=== PATIENT | female | born 1965 | race Caucasian/White ===

== ENCOUNTER 2023-07-30 15:54 | Emergency (ER) | payer MEDICAID, SELFPAY ==
[2023-07-30 15:57] VITALS: BP 129/86; PULSE 87; RESP 18; TEMP 36.2; O2SAT 100; BMI 27.1
--- NOTE | 2023-07-30 16:40 | EX.ED.SAOD ---
HPI History of Present Illness Chief Complaint: Substance Abuse Informant: patient Narrative Narrative: Patient presents hoping for Suboxone prescription. She has a history of crack cocaine use. She has been using Suboxone the last 3 years. She had been on a program in [place] but has not found anyone in this local area to help her. She states she ran out of Suboxone about a week ago. [facility] Medical History Cocaine substance abuse Allergy/AdvReac Type Severity Reaction Status Date / Time vancomycin Allergy Other Verified 07/30/23 15:57 Social History Smoking Status: Former smoker ROS ROS ED Constitutional Constitutional ED: Denies chills or fever(s) Eyes Eyes: Denies change in vision or discharge from eye(s) ENT ENT ED: Denies discharge from eye(s), rhinorrhea or sore throat Cardiovascular Cardiovascular: Denies chest pain or palpitations Respiratory/Chest Respiratory/Chest: Denies cough or dyspnea Gastrointestinal Gastrointestinal: Denies abdominal pain or vomiting Musculoskeletal Musculoskeletal: Denies back pain or extremity pain Integumentary Denies Abrasions or rash Neurologic Neurologic: Denies headache(s) or weakness Psychiatric Psychiatric: Reports anxiety; Denies depression Allergic/Immunologic Allergic/Immunologic ED: Denies lip swelling or urticaria EXAM Physical Exam Const Vital Signs: 07/30/23 15:57 Temperature 97.1 F L Temperature Source Temporal Pulse Rate 87 Respiratory Rate 18 Blood Pressure 129/86 H Blood Pressure Mean 100 Pulse Ox 100 Oxygen Delivery Method Room Air Positive well nourished and well developed General Appearance ED: well developed HEENT Reports moist mucous membranes Eyes EOMs intact bilaterally Chest Wall inspection of chest normal and palpation of chest normal Resp normal respiratory effort and clear to auscultation bilaterally Cardio regular rate and regular rhythm GI soft to palpation and non-tender Neuro oriented x3 and no sensory deficits noted Motor Exam: strength 5/5 throughout Psych mental status grossly normal MDM MDM MDM Narrative Medical decision making narrative: Advised patient that we do not have anyone on staff in the ER with the appropriate drug license to write for Suboxone. She has not followed up with [facility] and she was given information for them along with her 24-hour hotline phone number. She will call them for assistance. Return instructions given. Discharge Plan Triage Chief Complaint: Substance Abuse ED Provider: Dejah Olmos Dx/Rx/DC Orders Clinical Impression: Drug abuse Instructions: Substance Abuse Rehab Program, Recovering from Addiction, ED Drug Abuse Referrals: [facility] [Non-Staff] - As soon as possible Disposition Disposition: Home, Self Care
--- NOTE | 2023-07-30 16:45 | CM.ED ---
Social Work MD Olmos met with SW and reviewed presenting symptoms and current needs, patient requesting suboxone. SW inquired about housing resource needs as it was noted patient is homeless. explained the patient is staying in a friends RV and is only interested in suboxone. SW provided treatment navigator resource as they can direct patient and prefer to talk to patient directly. SW remains available if additional needs arise. Diamond Rogers TIN DIPPER, FRANKIE
== END 2023-07-30 16:54 | disposition home or self-care (01) ==
LOC: ED 16:50
PROVIDERS: Emergency Provider Emergency Medicine; Visit Provider Emergency Medicine
DX: F19.19 Other psychoactive substance abuse with unspecified psychoactive substance-induced disorder (principal); Z87.891 Personal history of nicotine dependence
CPT/HCPCS: 99282

== ENCOUNTER 2024-11-03 14:21 | Emergency (ER) | payer MEDICAID, SELFPAY ==
[2024-11-03 14:21] VITALS: BP 220/204; PULSE 86; RESP 20; TEMP 36.3; O2SAT 97; BMI 31.2
[2024-11-03 14:23] VITALS: BMI 31.2
--- NOTE | 2024-11-03 14:58 | MRI_ITS ---
STUDY: MRI LUMBAR SPINE WITHOUT CONTRAST REASON FOR EXAM: Female, 59 years old. back pain -- left leg weak, incontinent stools TECHNIQUE: Standardized fat and water weighted pulse sequences were obtained in the sagittal and axial planes. COMPARISON: None FINDINGS: T12-L1: Normal endplates. Normal disc height, hydration and morphology. Normal bilateral facet joints. Normal central canal and bilateral lateral recesses. Normal bilateral intervertebral neural foramina. Normal lumbar lordosis. There is no substantial scoliosis. Normal conus medullaris that terminates at T12-L1 L1-2: Normal endplates. Normal disc height, hydration and morphology. Normal bilateral facet joints. Normal central canal and bilateral lateral recesses. Normal bilateral intervertebral neural foramina. L2-3: Normal endplates. Normal disc height, hydration and minor annular bulge with small central disc extrusion with mild superior migration of disc fragment. Normal bilateral facet joints. Normal central canal and bilateral lateral recesses. Normal bilateral intervertebral neural foramina. L3-4: Normal endplates. Normal disc height, desiccation and minimal annular bulge with small left foraminal disc protrusion. Normal bilateral facet joints. Mild narrowing of central canal. Normal bilateral lateral recesses. Moderate left neural foraminal stenosis. L4-5: Normal endplates. Normal disc height, desiccation and minor annular bulge with small central left/left paracentral disc extrusion with mild inferior migration of disc fragment. Facet arthropathy and mild thickening of ligamenta flava. Mild narrowing of central canal. Normal bilateral lateral recesses. Small subarticular perineural cyst on the right of indeterminate clinical significance Moderate bilateral neural foraminal stenosis. L5-S1: Normal endplates. Normal disc height, desiccation and minimal annular bulge.. Facet arthropathy and thickening of ligamenta flava. Normal central canal and bilateral lateral recesses. Moderate bilateral neural foraminal stenosis. Normal visualized sacral ala. Normal visualized paraspinous soft tissue structures. MRI/Spine Lumbar (Routine) IMPRESSION: No evidence for acute fracture or other significant bony pathology. Multilevel disc degeneration and spondylosis. Spinal stenosis at L3-4 more pronounced on the left, L4-5 and L5-S1 degenerative disc disease and bony hypertrophy. Findings as above. Electronically Signed: Kenny Nascimento MD at 16:38 EST Reading Location ID and State: [address] [place] [address] Tel , Service support ,
--- NOTE | 2024-11-03 14:58 | CT_ITS ---
STUDY: CT BRAIN WITHOUT CONTRAST REASON FOR EXAM: Female, 59 years old. headache RADIATION DOSAGE (If Supplied By Facility): CTDIvol = ( 47.06 ) mGy, DLP = ( 837.39 ) mGycm TECHNIQUE: Transaxial CT imaging of the brain was performed without administration of intravenous contrast material. Individualized dose optimization techniques were used for this CT. COMPARISON: No relevant priors. FINDINGS: Normal soft tissue structures. Normal calvarium. Normal size ventricles and extra-axial spaces for the patient''s age. Normal white matter tracts of the cerebral hemispheres. Normal basal ganglia and thalami. Normal brainstem. Normal cerebellum. There is no intracranial hemorrhage. There are no findings of an acute ischemic infarction. Normal visualized paranasal sinuses. CT/Brain/Head without Contrast IMPRESSION: Normal unenhanced CT scan of the brain. Electronically Signed: Toñito Cain MD at 15:42 EST ,
--- NOTE | 2024-11-03 14:59 | EKG12_ITS ---
Test Reason : Blood Pressure : */* mmHG Vent. Rate : 79 BPM Atrial Rate : 79 BPM P-R Int : 140 ms QRS Dur : 76 ms QT Int : 394 ms P-R-T Axes : 43 29 31 degrees QTcB Int : 451 ms Normal sinus rhythm Normal ECG Confirmed by CASIE LESTER, MOR ([id number]), food editor ISATU WILSON ([id number]) on 11/04/2024 9:25:16 AM Referred By: Confirmed By: MOR JASON MD
--- NOTE | 2024-11-03 15:05 | EDS_ITS ---
HPI History of Present Illness Chief Complaint: Neuro S/Sx Informant: patient Narrative Narrative: Patient presents here for evaluation worsening back pain and leg weakness. She is history of sciatica on the left side. She reports history of stroke years ago leading to mild left leg weakness. She has been following more for the last 6 months. She has had a history of her sciatica pain manage in [place] she states she seen pain management years ago with injections. However noticing recurrent symptoms in the last 2 weeks. She had a fall this past Sunday with worsening leg weakness and now incontinence of stools. She denies any urine retention or any urine symptoms. She said pain radiates down left leg to her great toe. She does not walk with any assistance. She is currently staying at a nursing home for the last 3 months. History of ulcerative colitis not on any medications. Presented with blood pressure 220, she states recent headaches. Denies any chest or abdominal pain. Denies nausea or vomiting. She states she used to be on blood pressure medicines years ago however is able to get off them. She currently does not take any medications states only allergies to vancomycin. She reported intermittent blurry vision right eye for the last 2 weeks. 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 Prior similar symptoms: Yes and With Prior Back Pain [facility] Medical History Cocaine substance abuse Home Medications ?Medication ?Instructions ?Recorded ?Last Taken ?Type oxycodone-acetaminophen 5 mg-325 1 tab PO Q6H PRN PRN Pain 3 days 11/03/24 Unknown Rx mg tablet #12 TABLETS Allergy/AdvReac Type Severity Reaction Status Date / Time vancomycin Allergy Other Verified 07/30/23 15:57 Social History Smoking Status: Former smoker ROS ROS ED Constitutional Constitutional ED: Denies chills, fever(s) or sweats Eyes Eyes: Reports blurry vision ENT ENT ED: Denies sore throat Cardiovascular Cardiovascular: Denies chest pain, leg edema, palpitations or racing heartbeat Respiratory/Chest Respiratory/Chest: Denies cough, dyspnea or dyspnea on exertion Gastrointestinal Gastrointestinal: Reports other Details: Incontinence of stools ; Denies abdominal pain, diarrhea, nausea or vomiting Genitourinary Genitourinary ED: Denies dysuria, hematuria or urinary frequency Musculoskeletal Musculoskeletal: Reports back pain; Denies extremity pain or neck pain Integumentary Denies rash or wounds Neurologic Neurologic: Reports headache(s), paresthesias and weakness EXAM Physical Exam Const Vital Signs: 11/03/24 14:21 11/03/24 16:00 11/03/24 17:00 Temperature 97.4 F L Temperature Source Temporal Pulse Rate 86 69 72 Respiratory Rate 20 H 16 20 H Blood Pressure 220/204 H 147/80 H 136/81 H Blood Pressure Mean 209 102 99 Pulse Ox 97 98 99 Oxygen Delivery Method Room Air Room Air 11/03/24 17:41 Temperature 98.0 F Temperature Source Pulse Rate 65 Respiratory Rate 16 Blood Pressure 137/83 H Blood Pressure Mean 101 Pulse Ox 97 Oxygen Delivery Method Positive well nourished and well developed General Appearance ED: well developed and NAD HEENT Reports moist mucous membranes normocephalic and atraumatic Eyes General Eye ED: Yes normal appearance of both eyes and other Other Details: Right eye: Normal female counting all 4 quadrants. Left eye he sees shadows and light. Neck full ROM Neck Narrative: No meningismus. Chest Wall Chest: Negative for tenderness Resp normal respiratory effort and normal air movement Effort and Inspection: symmetric chest movement; Negative for respiratory distress Cardio regular rate, regular rhythm and no murmurs Peripheral Pulses: pulses 2+ throughout GI normal to inspection, nondistended, normoactive bowel sounds and non-tender Palpation: Negative for guarding or rebound tenderness present Back/Spine Back/Spine Narrative: Tender palpation lower lumbar and left paralumbar. Straight leg test was negative. Extremity normal to inspection General Extremety ED: Negative for edema or tenderness General Extremity: Negative for edema Neuro oriented x3 and no sensory deficits noted Neuro Narrative: Mild weakness left hip flexor 4 out of 5 compared to right hip flexor. Sensorium / Orientation: awake and alert Skin no rashes or lesions noted and no wounds MDM MDM MDM Narrative Medical decision making narrative: Interventions / MDM: Differential diagnosis: Lumbar radiculopathy, sciatica, accelerated hypertension Diagnosis considered but do not suspect: Cauda equina however MRI negative. Intracranial hemorrhage however CT brain negative. No findings of hypertensive emergency. My EKG interpretation: Sinus rate of 70, no ST changes, isolated T wave version leads III nonspecific. Imaging independently reviewed and interpreted by myself: CT brain: No acute process. MRI lumbar spine: Spinal stenosis L3-L4 more pronounced on the left. Degenerative changes L4-L5, L5-S1. External documents reviewed: N/A Test considered but not ordered:N/A ED course: Blood pressure elevated 220 no chest pains or shortness of breath intermittent headaches, With falls. Obtain head CT. Labs were rechecked. She reporting worsening back pain incontinence of stools and paresthesias, she does have 4 out of 5 hip flexor weakness. Will obtain emergent MRI secondary to this the lumbar spine. She will be treated with morphine for pain control. 1700: MRI study negative for cauda equina spinal stenosis probably L3-L4 more on the left. CT brain negative. Labs are all stable. Blood pressure down to 136/81 without any intervention. Pain was more controlled. EKG normal. Will ambulate patient with a walker for stability with her multiple falls. 1725: Patient able to ambulate with and without the walker. With her multiple falls will dispensed a walker to help with stability. She is given prescription for pain medicine to use as needed. She is referred to pain management with her radicular symptoms for further management options. Consider admission however patient able to ambulate pain is controlled blood pressure better no findings of hypertensive emergency. Re-evaluation: stable Disposition discussed with patient/family/significant other: Patient Case discussed with consulting clinician: N/A This note was generated with [employer] dictation software. It may contain incorrect words, spelling, and punctuation that were not noted in checking the note before signing. Lab Data Attestation: I reviewed the patient's lab results. Labs: Laboratory Results - last 24 hr 11/03/24 14:55 WBC 10.1 RBC 4.13 L Hgb 12.1 Hct 36.4 L MCV 88.1 MCH 29.3 MCHC 33.2 RDW Std Deviation 45.6 H RDW Coeff of Joselo 14.2 Plt Count 474 H MPV 9.4 Immature Gran % (Auto) 1.100 H Neut % (Auto) 67.4 Lymph % (Auto) 19.9 Dickinson % (Auto) 9.3 Eos % (Auto) 1.2 Baso % (Auto) 1.1 H Absolute Neuts (auto) 6.8 Absolute Lymphs (auto) 2.00 Nucleated RBC % 0 PT 12.4 INR 0.9 APTT 23.8 L Sodium 140 Potassium 3.6 Chloride 110 H Carbon Dioxide 24.0 Anion Gap 6 BUN 16 Creatinine 0.94 Estim Creat Clear Calc 55.89 Est GFR (MDRD) Af Amer 77 Est GFR (MDRD) Non-Af 64 BUN/Creatinine Ratio 16.9 Glucose 106 Calcium 9.3 Radiography Diagnostic Testing: Clinical Impression(s) from Imaging Studies Brain CT 11/03/24 14:58 IMPRESSION: Normal unenhanced CT scan of the brain. Electronically Signed: Toñito Cain MD at 15:42 EST , Lumbar Spine MRI 11/03/24 14:58 IMPRESSION: No evidence for acute fracture or other significant bony pathology. Multilevel disc degeneration and spondylosis. Spinal stenosis at L3-4 more pronounced on the left, L4-5 and L5-S1 degenerative disc disease and bony hypertrophy. Findings as above. Electronically Signed: Kenny Nascimento MD at 16:38 EST , Discharge Plan Triage Chief Complaint: Neuro S/Sx Other Complaint: Back ED Provider: Terry Tovar Dx/Rx/DC Orders Clinical Impression: Left lumbar radiculopathy, Back pain, Elevated blood pressure, situational, Headache, Fall Instructions: ED Sciatica Prescriptions: New oxycodone-acetaminophen 5-325 mg tablet 1 tab PO Q6H PRN PRN (Reason: Pain) 3 Days Qty: 12 0RF Primary Care Provider: Katie Nicholas Referrals: Marcial Ospina MD [Med Staff - Active Staff] - 5-7 Days Care Physician,No Primary [Non-Staff] - Katie Nicholas, BROKE HANDLER-C [Primary Care Provider] - 3-5 Days Activity Restrictions/Additional Instructions: MRI lumbar spine negative for cauda equina. L3-L4 spinal stenosis probably probably on the left side. CT brain negative. Blood pressure elevated arrival however without intervention down to 136/81. Labs are stable EKG normal. Take pain medicine as scribed. Use your walker for stability. Follow-up with Dr. Ospina, pain management further management. Print Language: Burmese Disposition Disposition: Home, Self Care Discharge Date/Time: 11/03/24 17:59
[2024-11-03] MEDS: Morphine 4 MG/ML Syringe IV (15:21)
[2024-11-03 15:34] LABS: Absolute Neutrophil Count 6.8 X10^3/uL (2.0-7.7); Basophil# 0.11 X10^3/uL; Basophil% 1.1 % (0-1); Eosinophil# 0.12 X10^3/uL; Eosinophils% 1.2 % (0-5); Hematocrit 36.4 % (37-47); Hemoglobin 12.1 g/dL (12.0-15.0); Lymphocyte % 19.9 % (19-41); Mean Corp Hgb Conc 33.2 g/dL (32-36); Mean Corpuscular Hgb 29.3 pg (27.0-32.0); Mean Corpuscular Volume 88.1 fL (81-99); Mean Platelet Vol. 9.4 fl (6.2-12.0); Monocyte# 0.93 X10^3/uL; Monocyte% 9.3 % (0-10); NRBC Flagged by Analyzer 0 % (0-5); Neutrophil # 6.78 X10^3/uL (2.7-7.7); Neutrophil % 67.4 % (47-70); Platelet Count 474 K/mm3 (150-450); RBC Distribution Width CV 14.2 % (11.6-14.6); RBC Distribution Width SD 45.6 fl (35.1-43.9); Red Blood Count 4.13 M/mm3 (4.2-5.4); White Blood Count 10.1 K/mm3 (4.4-11.0)
[2024-11-03 15:58] LABS: International Normalized Ratio 0.9; Prothrombin Time (Protime)PT. 12.4 SECONDS (11.7-14.9)
[2024-11-03 15:59] LABS: Partial Thromboplast Time 23.8 Seconds (24.1-36.2)
[2024-11-03 16:00] VITALS: BP 147/80; PULSE 69; RESP 16; O2SAT 98
[2024-11-03 16:39] LABS: Anion Gap 6 (5-15); BUN 16 mg/dL (7-18); BUN/Creat Ratio 16.9 RATIO (10-20); Calcium,Total 9.3 mg/dL (8.5-10.1); Chloride 110 mmol/L (98-107); Creatinine, Serum 0.94 mg/dL (0.55-1.02); EST Glomerular Filtration Rate 64 mL/min (>60); Est Glom Filt Rate - Afr Amer 77 mL/min (>60); Estimated Creatinine Clearance 55.89 ml/min; Glucose 106 mg/dL (74-106); Potassium 3.6 mmol/L (3.5-5.1); Sodium Level 140 mmol/L (136-145)
[2024-11-03 17:00] VITALS: BP 136/81; PULSE 72; RESP 20; O2SAT 99
[2024-11-03 17:41] VITALS: BP 137/83; PULSE 65; RESP 16; TEMP 36.7; O2SAT 97
== END 2024-11-03 17:59 | disposition home or self-care (01) ==
PROVIDERS: Emergency Provider Emergency Medicine; Visit Provider Emergency Medicine
DX: M47.26 Other spondylosis with radiculopathy, lumbar region (principal); R03.0 Elevated blood-pressure reading, without diagnosis of hypertension; R51.9 Headache, unspecified; Z87.891 Personal history of nicotine dependence; W19.XXXA Unspecified fall, initial encounter
CPT/HCPCS: 70450; 72148; 80048; 85025; 85610; 85730; 93005; 96374; 96376; 99285; A4216

== ENCOUNTER → 2024-11-05 | Outpatient (CLI) | payer MEDICAID, SELFPAY ==
[2024-11-05 17:17] LABS: Absolute Lymphocyte Count 1.48 X10^3/uL (0.83-4.51); Absolute Neutrophil Count 3.9 X10^3/uL (2.0-7.7); Basophil# 0.11 X10^3/uL; Basophil% 1.7 % (0-1); Eosinophil# 0.16 X10^3/uL; Eosinophils% 2.5 % (0-5); Hematocrit 33.7 % (37-47); Hemoglobin 10.9 g/dL (12.0-15.0); Lymphocyte # 1.48 X10^3/ul (0.83-4.51); Lymphocyte % 23.3 % (19-41); Mean Corp Hgb Conc 32.3 g/dL (32-36); Mean Corpuscular Hgb 28.9 pg (27.0-32.0); Mean Corpuscular Volume 89.4 fL (81-99); Mean Platelet Vol. 9.1 fl (6.2-12.0); Monocyte# 0.67 X10^3/uL; Monocyte% 10.6 % (0-10); NRBC Flagged by Analyzer 0 % (0-5); Neutrophil # 3.88 X10^3/uL (2.7-7.7); Neutrophil % 61.1 % (47-70); Platelet Count 413 K/mm3 (150-450); RBC Distribution Width CV 14.1 % (11.6-14.6); Red Blood Count 3.77 M/mm3 (4.2-5.4); White Blood Count 6.4 K/mm3 (4.4-11.0)
[2024-11-05 17:29] LABS: Erythrocyte Sedimentation Rate 3 mm/hr (0-30)
[2024-11-05 17:43] LABS: ALB/GLOB Ratio 1.3 RATIO (0.9-2.4); AST(SGOT) 24 U/L (15-37); Alanine Aminotransfer ALT/SGPT 29 U/L (13-56); Albumin, Serum 3.7 g/dL (3.2-5.0); Alkaline Phosphatase 65 U/L (45-117); Anion Gap 5 (5-15); BUN 15 mg/dL (7-18); BUN/Creat Ratio 16.6 RATIO (10-20); Calcium,Total 9.4 mg/dL (8.5-10.1); Chloride 109 mmol/L (98-107); Cholesterol 190 mg/dL (200); EST Glomerular Filtration Rate 67 mL/min (>60); Est Glom Filt Rate - Afr Amer 82 mL/min (>60); Globulin 2.8 g/dL (2.2-4.2); Glucose 110 mg/dL (74-106); High Density Lipoprotein 74 mg/dL; Potassium 4.2 mmol/L (3.5-5.1); Protein, Total 6.5 g/dL (6.4-8.2); Rheumatoid Factor < 10.0 IU/mL (<15); Sodium Level 138 mmol/L (136-145); Thyroid Stim Hormone (TSH) 0.337 uIU/mL (0.358-3.740); Triglycerides 63 mg/dL; Very Low Density Lipoprotein 13 mg/dL (5-40)
[2024-11-05 19:10] LABS: Hemoglobin A1c 5.7 % (3.8-5.6)
[2024-11-07 04:07] LABS: CRP, High Sensitivity 7.12 mg/L (0.00-3.00)
[2024-11-07 11:07] LABS: CCP IgG Antibodies 0 units (0-19)
== END | disposition home or self-care (01) ==
LOC: VSLAB 15:12
DX: M25.50 Pain in unspecified joint (principal); R19.7 Diarrhea, unspecified; R10.9 Unspecified abdominal pain; Z13.1 Encounter for screening for diabetes mellitus; Z13.220 Encounter for screening for lipoid disorders
CPT/HCPCS: 36415; 80053; 80061; 83036; 84443; 85025; 85652; 86141; 86200; 86431

== ENCOUNTER 2024-11-13 14:58 | Emergency (ER) | payer MEDICAID, SELFPAY ==
[2024-11-13 14:59] VITALS: BP 151/60; PULSE 81; RESP 16; TEMP 35.8; O2SAT 98
[2024-11-13] MEDS: morphine 10 MG/ML Syringe 8 MG IM (15:30)
[2024-11-13] MEDS: Ondansetron ODT 4 MG Tablet PO (15:30)
--- NOTE | 2024-11-13 15:34 | EDS_ITS ---
HPI <JASSON Baldwin - Last Filed: 11/13/24 15:38> History of Present Illness Chief Complaint: Back Narrative Narrative: Patient is a 59-year-old female with history of degenerative disc disease, arthritis, chronic back pain presents [facility]. Patient got a new job at the [employer], she states she was picking up a heavy load soda. Patient she felt something in her back, and now she is having severe pain. She denies any bowel or bladder incontinence, denies any weakness to her lower extremities. Patient did ambulate here. [facility] <JASSON Baldwin - Last Filed: 11/13/24 15:38> [facility] Medical History Cocaine substance abuse Home Medications ?Medication ?Instructions ?Recorded ?Last Taken ?Type oxycodone-acetaminophen 5 mg-325 1 tab PO Q6H PRN PRN Pain 3 days 11/03/24 Unknown Rx mg tablet #12 TABLETS Allergy/AdvReac Type Severity Reaction Status Date / Time vancomycin Allergy Other Verified 07/30/23 15:57 Social History Smoking Status: Current every day smoker tobacco type: cigarettes ROS <JASSON Baldwin - Last Filed: 11/13/24 15:38> ROS ED ROS Narrative Constitutional: Negative for fever, chills, weight loss, weakness Eyes: Negative for vision loss, vision change, double vision ENT: Negative for any sore throat, ear pain, congestion Cardiovascular: Negative for any chest pain, tightness, palpitations Respiratory: Negative for any cough, sputum production, hemoptysis, dyspnea, dyspnea on exertion, orthopnea Gastrointestinal: Negative for any abdominal pain, nausea, vomiting, diarrhea, constipation, blood in stool, blood in vomit : Negative for any urinary frequency, dysuria, retention, blood in urine Muscle skeletal: Negative for any neck pain. Positive for lower back pain Neurological: Negative for any headache, syncope, dizziness Skin: Negative for any rashes, itching, abrasions, lacerations Psychiatric: Negative for any depression, anxiety, stress, suicidal ideation, homicidal ideation Hematologic: Negative for any excessive bruising, easy bleeding EXAM <JASSON Baldwin - Last Filed: 11/13/24 15:38> Physical Exam Narrative Exam Narrative: Vital signs reviewed. HEET: Head normocephalic atraumatic, TMs clear bilaterally. Posterior pharynx is clear, moist mucous membranes. Nares clear bilaterally. Neck: Supple with no lymphadenopathy or tenderness. No signs of meningismus. Cardiac: Regular rate and rhythm no murmurs gallops or rubs, equal peripheral pulses bilaterally. Respiratory: Lungs clear to auscultation bilaterally. No chest tenderness. Abdomen: Soft, nontender, nondistended. No abdominal bruit or pulsatile masses. No hepatosplenomegaly Extremities: No peripheral edema, no signs of gross trauma or deformity. Active full range of motion of all extremities. Neuro: Cranial nerves II through XII intact, no focal neurological deficits. Skin: Clean dry and intact with no rash, purpura, petechiae, vesicles or pustules. Backs/flank: No CVA tenderness, no midline spinal tenderness, no deformity. Equal strength bilateral lower extremities. Pain is mostly across the entire lower lumbar spine. No deformity. Psych: Normal mood and affect. No SI, HI or acute psychosis. Const Vital Signs: 11/13/24 14:59 Temperature 96.4 F L Temperature Source Temporal Pulse Rate 81 Respiratory Rate 16 Blood Pressure 151/60 H Blood Pressure Mean 90 Pulse Ox 98 Oxygen Delivery Method Room Air <Dr. Kelvin Nichols MD - Last Filed: 11/13/24 16:39> Physical Exam Const Vital Signs: 11/13/24 14:59 Temperature 96.4 F L Temperature Source Temporal Pulse Rate 81 Respiratory Rate 16 Blood Pressure 151/60 H Blood Pressure Mean 90 Pulse Ox 98 Oxygen Delivery Method Room Air MDM <JASSON Baldwin - Last Filed: 11/13/24 15:38> [facility] Treatment and Re-Evaluation Narrative: Differential diagnosis includes however is not limited to: Lumbar fracture, acute on chronic pain, degenerative disc disease, muscle strain, compression fracture Patient appears generally well, vital signs are stable, patient is nontoxic- appearing. Presenting to the [facility] part for complaints of lower back pain after lifting up a case of pop. Patient will receive 80 mg of IM morphine, as well as oral Zofran. Patient will need to be reevaluated. <Dr. Kelvin Nichols MD - Last Filed: 11/13/24 16:39> [facility] MDM Narrative Medical decision making narrative: I have personally performed a face to face assessment of the patient and have reviewed the SHAUNNA Note. I performed a substantive portion of the visit including all aspects of the following. My gauthier findings include: History is 59-year-old female history of degenerative disc disease in her lower back. Recent MRI. Recently started a new job at an [employer]. Complaining of back pain. No bowel or bladder incontinence. No prior back surgery. No fever. No weakness in her legs. No radiation to her legs. Exam is [well-appearing 59-year-old female. Vital signs stable afebrile. H EENT exam unremarkable. Pupils round react light. Neck nontender. Lungs clear. Heart regular rhythm no murmur rate about 80. Chest wall ribs nontender. Abdomen soft nontender. Moving all 4 extremities. Neurovascularly intact. 5 out of 5 university manager strength. Dorsi plantarflexion intact equal symmetrical. No cauda equina. No saddle anesthesia. Can lift either leg off the bed. No radiculopathy. No straight leg raise. Back reproducible tenderness along the lumbar spine and paralumbar soft tissue.] Medical Decision Making [ patient treated treated with IM morphine. Pain much improved at 4:30 PM. She will be discharged home.] Other additions or changes: [None] Discharge Plan Triage Chief Complaint: Back ED Midlevel Provider: Yosi Gordillo ED Provider: Kelvin Nichols Dx/Rx/DC Orders Clinical Impression: Acute lumbar myofascial strain Instructions: ED Back Sprain/Strain Prescriptions: No Action oxycodone-acetaminophen 5-325 mg tablet 1 tab PO Q6H PRN PRN (Reason: Pain) 3 Days Qty: 12 0RF Stand Alone Forms: ED Work / School Excuse Primary Care Provider: Katie Nicholas Referrals: Katie Nicholas, TRANSMISSION SUPERVISOR-C [Primary Care Provider] - Activity Restrictions/Additional Instructions: Please ensure that you perform gentle stretching, ice and heat. You need to use anti-inflammatories, Tylenol, follow-up outpatient. Print Language: Luxembourgish
[2024-11-13 16:44] VITALS: BP 146/88; PULSE 86; RESP 16; TEMP 36.4; O2SAT 99
== END 2024-11-13 16:49 | disposition home or self-care (01) ==
LOC: ED 15:26
PROVIDERS: Emergency Provider Emergency Medicine; Referring Provider Emergency Medicine; Visit Provider Emergency Medicine
DX: S39.012A Strain of muscle, fascia and tendon of lower back, initial encounter (principal); F17.210 Nicotine dependence, cigarettes, uncomplicated; X58.XXXA Exposure to other specified factors, initial encounter
CPT/HCPCS: 96372; 99282

== ENCOUNTER 2024-12-02 09:30 | Outpatient (RCR) | payer MEDICAID, SELFPAY ==
--- NOTE | 2024-11-28 10:10 | HP.PTEVAL_ITS ---
Patient's Visit Information Visit Information Visit Information: ZOFIA CASTRO is a 59 year old F referred to Physical Therapy by Dr. Marcial Ospina MD with a diagnosis of LUMBAR RADICULOPATHY ,CERVICALOGENIC LEYVA ,CERVICAL SPONDYLOSIS. Date of Evaluation: 11/28/24 Physical Therapist: Ifeanyi Avalos, PT, Cert MDT, OCS Visit Plan Frequency: 2x /Week Duration: 4 Weeks Plan: PT INTERVENTIONS AQUATIC THERAPY DLS ,POSTURAL EX'S ,CERVICAL ROM ,LUMBAR ROM ,STRENGTHENING BUE/LE AND ACTIVITY MODIFICATION Subjective Subjective: This 59 y/o female presents to physical therapy with cervical and lumbar pain. Patient has had lumbar and neck pain many years. Patient seen pain management recommended PT changed medication muscle relaxer and try Cymbalta. No epidural injection but has h/o epidural injections. Patient had MRI showed stenosis and HNP.Patient had to go to ER due to pain. Patient pain located cervical right shoulder. > left . Aggravating factors standing and lifting. Alleviating heat ,movement. C/O occiput LEYVA then has migraines. Denies nausea/tinnitus. Location symmetrical left > right. with radicular symptoms in legs. Aggravating factors standing ,sitting,bending ,lifting occasional walking.Alleviating factors medication rest ,heat .Bowel/bladder -. C/O tingling/paresthesia in legs. Patient symptoms affects sleeping. Patient symp toms affects housework task sweeping. Patient condition affects QOL and function/houseworks. Patient goals to decrease pain. Patient VOCATION: [employer] SOCIAL: Pain Bilateral Neck: Pain Intensity (Out of 10): 3 Pain Intensity Range: 10 Bilateral Back: Pain Intensity (Out of 10): 8 Pain Intensity Range: 10 Objective Objective: POSTURE:mild forward posture NEURO: c/o paresthesia/tingling,reflexes L3-4,L4-5 ,L5-S1 1/3 ,C5-6-7 1/3 PALPATION: tender LS ,UT/levator/paraspinals AROM: BUE WFL CERVICAL ROM: flexion min loss ,extension min loss ,rotation min loss ,lateral flexion min/mod loss MMT: BUE grossly 4/5 ,shoulders 4-/5 LUMBAR ROM: flexion mod loss pain ,extension min loss ,side glides min loss MMT: quads/hams4/5 ,hip flexion 4-/5 ,ankle 4/5 FLXABILITY: hamstrings min tight Special Tests C/S Radiculapathy - Left Upper limb tension test: Negative C/S Radiculapathy - Right Upper limb tension test: Negative C/S Radiculapathy - Left Spurlings: Positive C/S Radiculapathy - Right Spurlings: Positive C/S Radiculapathy - Left Cervical distraction: Negative C/S Radiculapathy - Right Cervical distraction: Negative C/S Radiculapathy - Left Relief test: Negative C/S Radiculapathy - Right Relief test: Negative C/S Radiculapathy - Valsalva: Negative Sharp Jose J: Negative Vertebral Artery Test: Negative Alar Ligament Test: Negative L/S Slump test left side: Negative L/S Slump test right side: Negative L/S Left Straight Leg Raise: Negative L/S Right Straight Leg Raise: Negative Balance/Special Test Scores Oswestry Low Back Score: 31 Goals Goal 1:: Patient to be I with Aquatic therapy Goal Time Frame: 4-6 Weeks Goal 2:: Patient to improve cervical and lumbar ROM for function of recovery to drive and ADL Goal Time Frame: 4-6 Weeks Goal 3:: Patient to demonstrate 40% improvement with less pain and improved function Goal Time Frame: 4-6 Weeks Goal 4:: Patient to improve back oswestry score by 5 points to improve QOL and function Goal Time Frame: 4-6 Weeks Goal 5:: Patient be able to perform ADL;s and housework tasks with min limitations Goal Time Frame: 4-6 Weeks Rehabilitation Potential Physical Therapy Diagnosis: This patient has lumbar pain with MRI showed HNP and stenosis and cervical pain with radiculopathy with pain positioning and motion testing worse with walking/standing with back thus benefit from skilled PT Rehabilitation Potential: Good Anticipated Interventions Patient/Client Instruction: Educate patient on: Condition and Plan of Care For the Purpose of:: To decrease pain, To increase ROM, To improve muscle performance and motor function, To improve ability to perform ADL's, To increase tolerance to activity/condition/position, To improve ability of physical actions for home/community/work/leisure, To improve health of tissue, To decrease soft tissue restriction, To increase flexibility/ROM, To assume or resume ADL's and To prevent re-injury Therapeutic Exercise to Include: Strength training, Body mechanics, Postural training, Flexibilty training, In an aquatic setting, Active ROM and Dynamic Lumbar Stabilization Comment: BUE/BLE For the Purpose of:: To decrease pain, To increase ROM, To improve muscle performance and motor function, To improve ability to perform ADL's, To improve ability of physical actions for home/community/work/leisure, To improve gait and locomotor functions, To improve health of tissue, To decrease soft tissue restriction, To increase flexibility/ROM, To reduce risk of recurrence and To improve tolerance to ADL's Text: Thank you for the opportunity to evaluate your patient. For Medicare and Medicare HMO plans, please review the plan of care and approve it. It will need to be FAXED BACK to us at [phone] for Medicare purposes. For Medicare only, by signing this I certify the plan of care. Please let me know if there are questions or concerns regarding this plan of care. Physician Signature: Date:
--- NOTE | 2025-02-26 11:15 | HP.PT.NRP ---
Patient Information Patient Information: ZOFIA CASTRO was seen in my office for initial evaluation on 11/28/24. The following Plan of Care was established for this patient: POC Established Initial Frequency: 2x /Week Initial Duration: 4 Weeks Anticipated Interventions Patient/Client Instruction: Educate patient on: Condition and Plan of Care For the Purpose of:: To decrease pain, To increase ROM, To improve muscle performance and motor function, To improve ability to perform ADL's, To increase tolerance to activity/condition/position, To improve ability of physical actions for home/community/work/leisure, To improve health of tissue, To decrease soft tissue restriction, To increase flexibility/ROM, To assume or resume ADL's and To prevent re-injury Therapeutic Exercise to Include: Strength training, Body mechanics, Postural training, Flexibilty training, In an aquatic setting, Active ROM and Dynamic Lumbar Stabilization For the Purpose of:: To decrease pain, To increase ROM, To improve muscle performance and motor function, To improve ability to perform ADL's, To improve ability of physical actions for home/community/work/leisure, To improve gait and locomotor functions, To improve health of tissue, To decrease soft tissue restriction, To increase flexibility/ROM, To reduce risk of recurrence and To improve tolerance to ADL's Last Seen Last Seen: This patient was last seen in our office . Pertinent comments regarding their Physical therapy will appear below: Patient was seen for lumbar radiculopathy in Aquatics therapy for DLS and le flexibility. At this point I will be discontinuing this patient from physical therapy. I would be happy to see this patient again in the future if found appropriate by the physician. Thank you! Ifeanyi Avalos, PT, Cert MDT, OCS Balance/Gait/Functional tests Balance/Special Test Scores Oswestry Low Back Score: 31
== END 2024-12-02 19:00 | disposition home or self-care (01) ==
LOC: PT 09:30
PROVIDERS: Referring Provider Anesthesiology; Visit Provider Anesthesiology
DX: M54.16 Radiculopathy, lumbar region (principal); M43.02 Spondylolysis, cervical region; G44.86 Cervicogenic headache
CPT/HCPCS: 97113; 97162

== ENCOUNTER → 2024-12-22 | Outpatient (CLI) | payer MEDICAID, SELFPAY ==
--- NOTE | 2024-12-22 11:08 | RAD_ITS ---
EXAM: XR Cervical Spine, 4 or 5 Views CLINICAL INDICATION: TECHNIQUE: Frontal, lateral and bilateral oblique views of the cervical spine. COMPARISON: No relevant prior studies available. FINDINGS: VERTEBRAE: Mild reversal cervical spine lordosis. Severe endplate degenerative changes and disc disease of C6-7. No acute fracture. DISC SPACES: No acute findings. No significant narrowing. SOFT TISSUES: Unremarkable. RAD/Cerv Spine 4 or 5 Views IMPRESSION: Severe endplate degenerative changes and disc disease of C6-7. Reading Location: [facility]
== END | disposition home or self-care (01) ==
LOC: RAD 11:06
PROVIDERS: Referring Provider Anesthesiology; Visit Provider Anesthesiology
DX: M47.812 Spondylosis without myelopathy or radiculopathy, cervical region (principal)
CPT/HCPCS: 72050

== ENCOUNTER 2025-06-05 03:47 | Emergency (ER) | payer MEDICAID, SELFPAY ==
[2025-06-05 03:47] VITALS: BP 161/84; PULSE 99; RESP 16; TEMP 36.8; O2SAT 95; BMI 29.9
--- NOTE | 2025-06-05 04:04 | CT_ITS ---
PROCEDURE: SPINE CERVICAL WITHOUT CONTRAS 06/05/2025 REASON FOR EXAM: INJURY TECHNIQUE: SPINE CERVICAL WITHOUT CONTRAS Coronal and Sagittal reconstruction series were provided. One or more dose reduction techniques were used (e.g., Automated exposure control, adjustment of the mA and/or kV according to patient size, use of iterative reconstruction technique. RADIATION DOSE SUMMARY: CTDlvol: 17 mGy DLP: 330 mGycm COMPARISON: X-ray 12/22/2024 FINDINGS: Cervical spine scoliosis and degeneration. No acute fracture or dislocation. No soft tissue injury. No apical pneumothorax. At C5-C6, there is kyphotic angulation, without interspinous widening. This was present previously and may indicate a remote hyperflexion sprain. CT/Spine Cervical without Contras IMPRESSION: No acute cervical spine injury. Suspect a remote C5-6 hyperflexion sprain. Correlate with history. Reading Location: [place] [id number]
--- NOTE | 2025-06-05 04:04 | CT_ITS ---
PROCEDURE: BRAIN/HEAD WITHOUT CONTRAST 06/05/2025 REASON FOR EXAM: INJURY TECHNIQUE: BRAIN/HEAD WITHOUT CONTRAST Coronal and Sagittal reconstruction series were provided. One or more dose reduction techniques were used (e.g., Automated exposure control, adjustment of the mA and/or kV according to patient size, use of iterative reconstruction technique. RADIATION DOSE SUMMARY: CTDlvol: 45 mGy DLP: 762 mGycm COMPARISON: 11/03/2024 FINDINGS: No abnormal brain densities. No intracranial hemorrhage. No hydrocephalus or midline shift. Small left posterior scalp hematoma. No skull fracture. Unremarkable orbits. Clear sinuses. CT/Brain/Head without Contrast IMPRESSION: No acute intracranial findings Reading Location: [place] [id number]
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
--- NOTE | 2025-06-05 04:04 | CT_ITS ---
PROCEDURE: SINUS/FACIAL BONE 06/05/2025 REASON FOR EXAM: INJURY TECHNIQUE: SINUS/FACIAL BONE Coronal and Sagittal reconstruction series were provided. One or more dose reduction techniques were used (e.g., Automated exposure control, adjustment of the mA and/or kV according to patient size, use of iterative reconstruction technique). RADIATION DOSE SUMMARY: CTDlvol: 30 mGy DLP: 562 mGycm COMPARISON: No FINDINGS: No facial fracture or dislocation. There is right anterolateral facial bruising, at the level of the mandible, series 608, image 75. No soft tissue injury otherwise noted. Orbital soft tissues are unremarkable. CT/Sinus/Facial Bone IMPRESSION: Mild facial soft tissue injury. Reading Location: [place] [address]
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
[2025-06-05] MEDS: 0.9% Normal Saline (1000mL) 1,000 ML 999 ML IV (04:25)
[2025-06-05 04:30] LABS: Hematocrit 40.8 % (37-47); Hemoglobin 13.8 g/dL (12.0-15.0); Immature Granulocytes Count 0.050 X10^3/uL (0.0-0.0); Mean Corp Hgb Conc 33.8 g/dL (32-36); Mean Corpuscular Volume 85.5 fL (81-99); Mean Platelet Vol. 8.9 fl (6.2-12.0); NRBC Flagged by Analyzer 0.3 % (0-5); Platelet Count 457 K/mm3 (150-450); RBC Distribution Width CV 15.6 % (11.6-14.6); RBC Distribution Width SD 48.4 fl (35.1-43.9); Red Blood Count 4.77 M/mm3 (4.2-5.4); White Blood Count 7.9 K/mm3 (4.4-11.0)
--- OUTSIDE RECORDS SUMMARY | 2025-06-05 04:49 | XMS RPT_ITS | CCD ---
Demographics Address [address] [place] [address] Mobile Phone Home Phone Preferred Language en Marital Status Catholic Affiliation Unknown Race White Ethnic Group Not or Lati no Author Organization [facility] Care Team Providers Care Court Assistant Name Role Phone NYDIA BLAND Unavailable Unavailable DAVID LESLIE Unavailable Unavailable No, Physician Unavailable Unavailable Nydia Bland Unavailable Unavailable Unavailable Unavailable Gina Mosleey Unavailable Chacortaramez, Trisha N Primary Care Provider [facility], [facility] Primary Care Provider [facility], Trisha Primary Care Provider [facility], [facility] Primary Care Provider Mendoza DO, Peter Primary Care Provider [phone] Brennan Martin MD Unavailable Mendoza DO, Peter Primary Care Provider LYNN, THADDEUS GONSALO Admitting Unavailable LYNN, THADDEUS GONSALO Referring Unavailable MENDOZA, PETER Primary Care Unavailable LYNN, THADDEUS GONSALO Referring Unavailable MENDOZA, PETER Primary Care Unavailable LYNN, THADDEUS GONSALO Admitting Unavailable MENDOZA, PETER Primary Care Unavailable [facility], TRISHA N Primary Care Unavailable XI LEZAMA Consulting Unavailable NOEMY ROJAS Attending Unavailable JOSH KATE Admitting Unavailab marjan MOSLEYKKANTI, BRENNAN Attending Unavailable MENDOZA, PETER Primary Care Unavailable NEKKANTI, BRENNAN Referring Unavailable SABINE ALCARAZ Attending Unavailable MENDOZA, PETER Primary Care Unavailable NEKKANTI, BRENNAN Referring Unavailable MENDOZA, PETER Primary Care Unavailable MENDOZA, PETER Referring Unavailable NEKKANTI, BRENNAN Attending Unavailable NEKKANTI, BRENNAN Admitting Unavailable MENDOZA, PETER Primary Care Unavailable NEKKANTI, BRENNAN Admitting Unavailable NEKKANTI, BRENNAN Attending Unavailable SELF, SELF Referring Unavailable MENDOZA, PETER Primary Care Unavailable NEKKANTI, BRENNAN Attending Unavailable MENDOZA, PETER Primary Care Unavailable NEKKANTI, BRENNAN Referring Unavailable NEKKANTI, BRENNAN Admitting Unavailable NEKKANTI, BRENNAN Attending Unavailable NEKKANTI, BRENNAN Attending Unavailable SELF, SELF Referring Unavailable MENDOZA, PETER Primary Care Unavailable MENDOZA, PETER Primary Care Unavailable ADELAIDA DOMINGUEZ A Attending Unavailable NEKKANTI, BRENNAN Referring Unavailable DOMINGUEZADELAIDA A Attending Unavailable MENDOZA, PETER Primary Care Unavailable NEKKANTI, BRENNAN Referring Unavailable STMAREK LI Attending Unavailable SELF, SELF Referring Unavailable MENDOZA, PETER Primary Care Unavailable Veronica LESTER, Brennan Unavailable Veronica LESTER, Brennan Unavailable [phone] Mateusz Linares DO Primary Care Provider Veronica LESTER, Brennan Unavailable [phone] Mateusz Linares DO Primary Care Provider Vikas Bermudez DO Unavailable Kaitlynn Duval DO Primary Care Provider Unava ilable Nydia Bland DO Primary Care Provider [phone] No, Physician Primary Care Provider Unavailabl e Saccyoon DO Isholivieril Primary Care Provider [phone] [facility] Trisha MCELROY Primary Care Provider Peter Mendoza DO, Lp Primary Care Provider Vikas Bermudez DO Unavailable ERIC LINARESIA Primary Care Unavailable ANTONIO RAGLAND Attending Unavailab ANTONIO Brooks Referring Unavailab PETER Velazquez LP Primary Care Unavailable VIKAS BERMUDEZ Attending Unava ilable VIKAS BERMUDEZ Referring Unava ilable MATEUSZ LINARES Primary Care Unavailable KOTA LANDA Admitting Unavailab KOTA Lee Attending Unavailab le POTHEN, MATEUSZ Primary Care Unavailable KOTA LANDA Admitting Unavailab marjan LINARES, MATEUSZ Primary Care Unavailable ROSALES PIERCE Attending Unavailable Unavailable Primary Care Provider Unavailabl e Sheets DO, Jennifer C Primary Care Provider SHEETS, JENNIFER Primary Care Unavailable Migue FIVE PIECE EXPANSION MAKER HAND WHARF ATTENDANT, Modesta Unavailable Unavailabl Ariela Rosario DO Unavailable [phone] Sheets DO, Jennifer C Primary Care Provider SHEETS, JENNIFER C Primary Care Unavailable LON GRAHAM Attending Unavailabl e Marjan MCELROY, Dr. Stewart Attending Provider Marjan MCELROY, Dr. Stewart Emergency Provider [facility] ICU SPECIALIST-[facility], [place] Primary Care Provider [facility] ICU SPECIALIST-[facility], [place] Attending Provider Simone LETSER, Dr. Warren Attending Provider [phone] Dr. Kelvin Nichols MD Referring Provider Dr. Kelvin Nichols MD Emergency Provider Dr. Marcial Ospnia MD Attending Provider [phone] Dr. Marcial Ospina MD Referring Provider [facility] ICU SPECIALIST-C, [place] Primary Care Provider Beam, [place] Primary Care Unavailable Beam, [place] Attending Unavailable Marcial Ospina Attending Unavailable Marcial Ospina Referring Unavailable Beam, [place] Primary Care Unavailable Beam, [place] Primary Care Unavailable Terry Phillip Attending Unavailable Kelvin Nichols Attending Unavailable Kelvin Nichols Referring Unavailable Beam, [place] Primary Care Unavailable Beam, [place] Attending Unavailable Beam, [place] Primary Care Unavailable Beam, [place] Primary Care Unavailable Marcial Ospina Attending Unavailable Marcial Ospina Referring Unavailable SHEETS, JENNIFER C Primary Care Unavailable SHEETS, JENNIFER C Primary Care Unavailable SHEETS, JENNIFER C Referring Unavailable SHEETS, JENNIFER C Attending Unavailable SHEETS, JENNIFER C Primary Care Unavailable SELF Referring Unavailable SHEETS, JENNIFER C Attending Unavailable SHEETS, JENNIFER C Primary Care Unavailable SHEETS, JENNIFER C Referring Unavailable KOTA LANDA Attending [facility] MATEUSZ Delatorre Primary Care Unavailable Allergies Allergy Classification Reported Allergen(s) Allergy Type Date of Onset Reaction(s) Facility Glycopeptides (antibiotic) (20 sources) Vancomycin Drug Allergy 8 Rash, Anaphylaxis, Other: See Comments [facility] (20 sources) vancomycin; Translations: [VANCOMYCIN] Drug Allergy 8 Rash, Anaphylaxis, Other: See Comments [facility] Comment on above: skin burning (1 source) Vancomycin Drug Allergy 3 [facility] Repository Medications Current Medications Medication Drug Class(es) Dates Sig (Normalized) Sig (Original) acetaminophen 325 mg / HYDROcodone bitartrate 5 mg oral tablet (11 sources) Opioid Agonist Start: 03-22-2023 End: 03-29-2023 take 1 tablet by mouth every eight hours as needed for pain HYDROcodone-aceta minophen (NORCO) 5-325 mg per tablet Indications: S/P right rotator cuff repair Take 1 (one) tablet by mouth every 8 (eight) hours as needed for pain Wean down/off as soon as possible. . 20 tablet 0 03/22/2023 03/29/2023 Active Start: 07-25-2020 End: 07-25-2020 HYDROcodone-acetaminophen (N ORCO) 5-325 mg per tablet 1 tablet Start: 05-26-2018 End: 01-02-2019 take 1 tablet by mouth every six hours as needed HYDROcodone-acetaminophen (NORCO) 5-325 mg per tablet Indications: Cellulitis, unspecified cellulitis site Take 1 (one) tablet by mouth every 6 (six) hours as needed. 10 tablet 0 05/26/2018 01/02/2019 Discontinued Start: 05-24-2018 End: 05-26-2018 take 1 tablet by mouth every six hours as needed Start: 05-24-2018 End: 05-24-2018 HYDROcodone-acetaminophen (N ORCO) 5-325 mg per tablet 1 tablet acetaminophen 325 mg / oxyCODONE hydrochloride 5 mg oral tablet (2 sources) Opioid Agonist Start: 11-03-2024 take 1 tablet by mouth every six hours as needed for pain Oxycodone-Acetaminophen 5-325 mg tablet Active 1 {tbl} PO EVERY 6 HOURS NEEDED as needed for Pain 12 3 November 03, 2024 [id number] 200 actuat albuterol 0.09 mg/actuat metered dose inhaler (20 sources) beta2-Adrene rgic Agonist Start: 09-26-2023 End: 04-07-2025 take 2 puff(s) by inhalation every six hours as needed for wheezing albuterol HFA (PROVENTIL HFA, VENTOLIN HFA) 90 mcg/actuation inhaler Indications: ARAM (generalized anxiety disorder) Inhale 2 puffs as instructed every 6 hours as needed for wheezing/shortness of breath. 1 each 11 04/08/2025 Active Start: 09-01-2021 End: 11-20-2022 take 2 puff(s) by inhalation every four to six hours as needed for wheezing albuterol 90 mcg/actuation inhaler Indications: Dyspnea on exertion Inhale 2 (two) puffs every 4 to 6 hours as needed for wheezing or shortness of breath . 18 g 0 11/20/2022 Active Comment on above: Inhale 2 Puffs as in structed every 6 hours as needed for wheezing/shortness of breath. bacitracin 0.4 unt/mg / neomycin 0.0035 mg/mg / polymyxin b 10 unt/mg ophthalmic ointment (14 sources) Aminoglycoside Antibacterial, Polymyxin-class Antibacterial Start: 3 zlpiguid-vyzeyczpmd-iqd ymyxin (NEOSPORIN) 3.5-400-10,000 jd-vnrp-jidu/g ophthalmic ointment Indications: Acute conjunctivitis of left eye, unspecified acute conjunctivitis type Administer into the left eye 3 (three) times a day . 3.5 g 0 11/06/2022 Active betamethasone 0.5 mg/ml / clotrimazole 10 mg/ml topical cream (1 source) Azole Antifungal, Corticosteroid Start: 8 End: 8 clotrimazole-betamethas one (LOTRISONE) cream Indications: Rash and nonspecific skin eruption Apply to affected area 2 times daily. 45 g 0 03/28/2018 04/04/2018 Active Blood Pressure Monitor (20 sources) Start: 4 Blood Pressure Monitor Indications: Hypertension, essential 1 Each as directed. 1 Kit 03/27/2024 Active Start: 03-27-2024 Blood Pressure Monitor Indications: Hypertension, essential 1 Each as directed. 1 Kit 0 03/27/2024 Active budesonide 3 mg delayed release oral capsule (20 sources) Corticosteroid Start: 05-11-2021 End: 05-08-2023 take 1 capsule by mouth every twenty-four hours in the morning budesonide (ENTOCORT EC) 3 mg 24 hr capsule Take 3 (three) capsules (9 mg total) by mouth every morning . 90 capsule 0 05/08/2023 Active Start: 05-11-2021 End: 08-30-2021 take 1 capsule by mouth once daily, then take 3 mg by mouth every twenty-four hours budesonide (ENTOCORT EC) 3 mg 24 hr capsule Take 9 mg by mouth daily . 0 05/11/2021 08/30/2021 Discontinued End: 03-27-2024 take 1 capsule by mouth once daily, then take 1 capsule by mouth every twenty-four hours budesonide, enteric coated (ENTOCORT EC) 3 mg 24 hr capsule Take 3 mg by mouth once daily. 0 03/27/2024 Discontinued Comment on above: Take 3 mg by mouth o nce daily. busPIRone hydrochloride 5 mg oral tablet (20 sources) Start: 09-26-2023 End: 04-07-2025 take 1 tablet by mouth once daily busPIRone (BUSPAR) 5 mg tablet Indications: ARAM (generalized anxiety disorder) Take 1 tablet by mouth once daily. 90 tablet 3 04/08/2025 Active Start: 11-08-2006 End: 09-26-2023 BUSPAR 10 MG TAB 1/2 TABLETS DAILY 0 11/08/2006 09/26/2023 Discontinued Comment on above: 1/2 TABLETS DAILY Take 1 tablet by lilo once daily. cephalexin 500 mg oral capsule (2 sources) Cephalosporin Antibacterial Start: 018 End: 018 take 1 capsule by mouth four times daily cephALEXin (KEFLEX) 500 MG capsule Take 1 (one) capsule (500 mg total) by mouth 4 (four) times a day for 7 days. 28 capsule 0 05/26/2018 06/02/2018 Active cetirizine hydrochloride 10 mg oral tablet (3 sources) Histamine-1 Receptor Antagonist Start: 024 End: 024 take 1 tablet by mouth once daily cetirizine (ZYRTEC) 10 mg tablet Take 1 tablet by mouth once daily for 14 days. 14 tablet 0 04/02/2024 04/16/2024 Active DAILY MULTIPLE TAB (20 sources) Start: 006 DAILY MULTIPLE TAB Take one(1) tablet daily. 0 01/05/2006 Active Comment on above: Take one(1) tablet d aily. docusate sodium 100 mg oral capsule (20 sources) Start: 023 End: 023 take 1 capsule by mouth twice daily as needed for constipation docusate sodium (Colace) 100 MG capsule Take 1 (one) capsule (100 mg total) by mouth 2 (two) times a day as needed for constipation . 60 capsule 0 03/07/2023 04/06/2023 Active Start: 07-15-2021 End: 11-20-2022 take 1 capsule by mouth every twenty-four hours as needed docusate sodium (COLACE) 100 MG capsule Take 1 (one) capsule (100 mg total) by mouth once as needed . 0 07/15/2021 11/20/2022 Discontinued (Patient's Request) famotidine 20 mg oral tablet (20 sources) Histamine-2 Receptor Antagonist Start: 04-22-2024 End: 04-07-2025 take 1 tablet by mouth once daily famotidine (PEPCID) 20 mg tablet Indications: Indigestion Take 1 tablet by mouth once daily. 30 tablet 2 04/08/2025 Active Start: 04-02-2024 End: 04-16-2024 take 1 tablet by mouth twice daily famotidine (PEPCID) 20 mg tablet Take 1 tablet by mouth two times a day for 14 days. 28 tablet 0 04/02/2024 04/16/2024 Active folic acid 1 mg oral tablet (20 sources) Start: 11-08-2006 End: 04-17-2022 FOLIC ACID 1 MG TAB Take one(1) tablet daily. 0 11/08/2006 Active Comment on above: Take one(1) tablet d aily. gabapentin 600 mg oral tablet (20 sources) Anti-epileptic Agent Start: 02-11-2025 End: 06-10-2025 take 1 tablet by mouth three times daily gabapentin (NEURONTIN) 600 mg tablet Take 1 tablet by mouth three times a day for 30 days. 90 tablet 05/11/2025 06/10/2025 Active Start: 06-03-2024 End: 01-15-2025 take 1 tablet by mouth three times daily gabapentin (NEURONTIN) 600 mg tablet Indications: Left sided sciatica Take 1 tablet by mouth three times a day for 30 days. 90 tablet 12/16/2024 Active Start: 11-27-2023 End: 05-29-2024 take 1 tablet by mouth three times daily gabapentin (NEURONTIN) 600 mg tablet Indications: Left sided sciatica Take 1 tablet by mouth three times a day for 30 days. 90 tablet 0 03/31/2024 04/29/2024 Discontinued Start: 09-26-2023 End: 10-26-2023 take 1 tablet by mouth three times daily gabapentin (NEURONTIN) 600 mg tablet Indications: Left sided sciatica Take 1 tablet by mouth three times a day for 30 days. 90 tablet 0 09/26/2023 10/26/2023 Active Start: 02-21-2023 End: 06-19-2023 take 2 capsules by mouth three times daily gabapentin (NEURONTIN) 300 MG capsule Indications: Cervicalgia Take 2 (two) capsules (600 mg total) by mouth 3 (three) times a day . 180 capsule 1 04/20/2023 05/08/2023 Discontinued (Reorder (Suppress CancelRx Message to Pharmacy)) Start: 06-22-2022 End: 02-19-2023 take 2 capsules by mouth three times daily gabapentin (NEURONTIN) 300 MG capsule Indications: Cervicalgia Take 2 (two) capsules (600 mg total) by mouth 3 (three) times a day . 180 capsule 1 11/20/2022 02/19/2023 Discontinued (Reorder (Suppress CancelRx Message to Pharmacy)) Start: 09-16-2021 End: 06-16-2022 take 2 capsules by mouth three times daily gabapentin (NEURONTIN) 300 MG capsule Indications: Cervicalgia Take 2 (two) capsules (600 mg total) by mouth 3 (three) times a day . 180 capsule 1 04/17/2022 06/16/2022 Active Start: 05-02-2021 End: 09-14-2021 take 2 capsules by mouth three times daily gabapentin (NEURONTIN) 300 MG capsule Indications: Cervicalgia Take 2 (two) capsules (600 mg total) by mouth 3 (three) times a day . 180 capsule 2 06/07/2021 09/14/2021 Discontinued (Reorder) Start: 10-05-2020 End: 05-02-2021 gabapentin (NEURONTIN) 300 M G capsule Indications: Chronic midline low back pain without sciatica Take 1 tablet in AM, 1 tablet in afternoon, and 2 tablets in evening . 90 capsule 0 04/18/2021 05/02/2021 Discontinued Start: 07-03-2020 End: 07-26-2020 take 1 tablet by mouth three times daily gabapentin (NEURONTIN) 800 MG tablet TK 1 T PO TID 0 07/03/2020 07/26/2020 Discontinued Start: 06-27-2018 End: 07-26-2020 gabapentin (NEURONTIN) 300 M G capsule Indications: Chronic midline low back pain without sciatica Take 1 tablet in AM, 1 tablet in PM, and 2 tablets in evening . 120 capsule 2 07/26/2020 Active Start: 02-23-2015 End: 02-04-2016 gabapentin (NEURONTIN) 800 M G tablet Indications: Chronic back pain , Right knee pain Take 1.5 tablets TID. 135 tablet 1 02/23/2015 02/04/2016 Discontinued (Reorder (Suppress CancelRx Message to Pharmacy)) Comment on above: Take 1 tablet by lilo th three times a day for 30 days. Take 600 mg by mouth three times a day. hydrOXYzine hydrochloride 25 mg oral tablet (20 sources) Antihistamine Start: 12-03-19 End: 04-07-20 take 1 tablet by mouth three times daily as needed hydrOXYzine HCl (ATARAX) 25 mg tablet Indications: Itching Take 1 tablet by mouth three times a day as needed. 90 tablet 3 04/08/2025 Active Start: 05-08-2023 End: 05-07-2024 take 1 capsule by mouth three times daily as needed for anxiety hydrOXYzine (VISTARIL) 25 MG capsule Indications: Anxiety Take 1 (one) capsule (25 mg total) by mouth 3 (three) times a day as needed for anxiety . 90 capsule 0 05/08/2023 05/07/2024 Active Comment on above: Take 1 tablet by lilo th three times a day as needed. ibuprofen 600 mg oral tablet (20 sources) Nonsteroidal Anti-inflammatory Drug Start: 11-13-2024 take 1 tablet by mouth every six hours as needed for pain Ibuprofen 600 mg tablet Active 600 mg PO EVERY 6 HOURS NEEDED as needed for pain November 13, 2024 1:00am Start: 03-07-2023 End: 06-05-2023 take 1 tablet by mouth every six hours as needed for pain ibuprofen (ADVIL,MOTRIN) 600 MG tablet Take 1 (one) tablet (600 mg total) by mouth every 6 (six) hours as needed for pain . 60 tablet 1 03/07/2023 06/05/2023 Start: 07-15-2021 End: 08-12-2021 take 1 tablet by mouth once daily as needed ibuprofen (ADVIL,MOTRIN) 800 MG tablet Take 1 tablet by mouth daily as needed . 0 07/15/2021 08/12/2021 Discontinued Start: 05-04-2021 End: 06-07-2021 take 1 tablet by mouth every six hours as needed ibuprofen (ADVIL,MOTRIN) 600 MG tablet Take 600 mg by mouth every 6 (six) hours as needed . 0 05/04/2021 06/07/2021 Discontinued Start: 02-11-2015 End: 05-26-2018 take 1 tablet by mouth every eight hours as needed for pain ibuprofen (ADVIL,MOTRIN) 600 MG tablet TAKE ONE TABLET BY MOUTH EVERY 8 HOURS NEEDED FOR PAIN 90 tablet 1 02/11/2015 05/26/2018 Discontinued (Stop Taking at Discharge) take 3 tablets by [facility] every twelve hours ibuprofen (ADVIL,MOTRIN) 200 MG tablet Indications: R rotator cuff shoulder tear Take 3 (three) tablets (600 mg total) by mouth every 12 (twelve) hours Reasons: R rotator cuff shoulder tear. 0 Active End: 03-05-2021 take 4 tablets by mouth twice daily ibuprofen (ADVIL,MOTRIN) 200 MG tablet Take 800 mg by mouth 2 (two) times a day . 0 03/05/2021 Discontinued ammonium lactate 120 mg/ml topical lotion (20 sources) Start: 09-26-2023 End: 04-07-2025 ammonium lactate (LAC-HYDRIN ) 12 % lotion Indications: Dermatitis Apply to affected area once daily as needed. 225 g 11 04/08/2025 Active Start: 09-11-2022 End: 09-11-2023 ammonium lactate (AMLACTIN) 12 % cream Indications: Dry skin Apply topically 2 (two) times a day . 385 g 0 09/11/2022 09/11/2023 Active Comment on above: Apply to affected ar ea once daily as needed. Apply to affected ar ea as needed. lidocaine 0.04 mg/mg medicated patch (20 sources) Antiarrhythmic, Amide Local Anesthetic Start: 1 End: 1 apply 1 dose transdermal route once daily, then apply 1 dose transdermal route every twelve hours lidocaine (LIDODERM) 5 % patch Place 1 (one) patch on the skin daily Remove & Discard patch within 12 hours or as directed by MD for 3 doses . 3 patch 0 03/22/2021 03/25/2021 Active Start: 07-25-2020 End: 04-07-2025 lidocaine (SALONPAS) 4 % pat ch Indications: Left sided sciatica Apply 1 application as directed once daily. 90 patch 3 04/08/2025 Active Comment on above: Apply 1 application as directed once daily. meloxicam 15 mg oral tablet (20 sources) Nonsteroidal Anti-inflammatory Drug Start: 8 End: 5 take 1 tablet by mouth once daily meloxicam (MOBIC) 15 mg tablet Indications: Osteoarthrosis, unspecified whether generalized or localized, other specified sites Take 1 tablet by mouth once daily. 90 tablet 3 04/08/2025 Active Start: 05-24-2018 End: 05-26-2018 Start: 12-04-2014 End: 12-04-2015 take 1 tablet by mouth once daily meloxicam (MOBIC) 7.5 MG tablet Indications: Back pain, chronic Take 1 tablet (7.5 mg total) by mouth daily. 30 tablet 1 12/04/2014 12/04/2015 Comment on above: Take 1 tablet by lilo once daily. Take 15 mg by mouth once daily. multivitamin (DAILY MULTIPLE) per tablet (20 sources) Start: 01-05-2006 take 1 tablet by mouth once daily multivitamin (DAILY MULTIPLE) per tablet Take 1 tablet by mouth daily . 0 01/05/2006 Active Start: 01-05-2006 multivitamin ( DAILY MULTIPLE) per tablet Take by mouth . 0 01/05/2006 Active multivitamin (THERAGRAN) per tablet (20 sources) Start: 01-05-2006 take 1 tablet by mouth once daily multivitamin (THERAGRAN) per tablet Take 1 (one) tablet by mouth daily . 0 01/05/2006 Active Start: 01-05-2006 take 1 tablet by lilo th once daily multivitamin (THERAGRAN) per tablet Take 1 tablet by mouth daily . 0 01/05/2006 Active naloxone hydrochloride 40 mg/ml nasal spray (20 sources) Opioid Antagonist Start: 10-17-2022 naloxone (NA RCAN) 4 mg/actuation [place] Indications: Cervicalgia Administer 1 spray into one nostril for known or suspected opioid overdose. If patient worsens or does not respond, may repeat in 2-3 minutes. . 2 each 5 10/17/2022 Active ondansetron 4 mg oral tablet (9 sources) Serotonin-3 Receptor Antagonist Start: 03-07-2023 take 1 tablet by mouth every six hours as needed for nausea ondansetron (Zofran) 4 MG tablet Take 1 (one) tablet (4 mg total) by mouth every 6 (six) hours as needed for nausea . 10 tablet 1 03/07/2023 Active Start: 12-12-2021 End: 04-17-2022 take 1 tablet by mouth every eight hours as needed for nausea and nausea and nausea ondansetron (ZOFRAN) 8 MG tablet Indications: Nausea Take 1 (one) tablet (8 mg total) by mouth every 8 (eight) hours as needed for nausea . 20 tablet 0 12/12/2021 04/17/2022 Discontinued Start: 03-01-2021 End: 03-05-2021 take 4 mg intravenously every six hours as needed 4 mg, Intravenous, Every 6 hours PRN, nausea, vomiting, Starting 03/01/21 at 2046 Start: 05-24-2018 End: 05-26-2018 take 1 tablet by mouth every six hours as needed 24 hr oxybutynin chloride 15 mg extended release oral tablet (20 sources) Cholinergic Muscarinic Antagonist Start: 01-22-2024 End: 04-07-2025 take 2 tablets by mouth once daily oxybutynin ER (DITROPAN XL) 15 mg 24 hr Extended Rel Tab Indications: OAB (overactive bladder) Take 2 tablets by mouth once daily. 180 tablet 3 04/08/2025 Active Start: 06-13-2021 End: 01-22-2024 take 1 tablet by mouth once daily oxybutynin ER (DITROPAN XL) 10 mg 24 hr tablet Indications: OAB (overactive bladder) Take 1 tablet by mouth once daily. 30 tablet 11 09/26/2023 01/22/2024 Discontinued Comment on above: Take 1 tablet by lilo th once daily. Take 10 mg by mouth once daily. [facility] PARoxetine hydrochloride 40 mg oral tablet (20 sources) Serotonin Reuptake Inhibitor Start: End: take 2 tablets by mouth once daily PARoxetine (PAXIL) 40 mg tablet Indications: ARAM (generalized anxiety disorder) Take 2 tablets by mouth once daily. 180 tablet 3 04/08/2025 Active Start: 05-08-2023 take 1 tablet by lilo th once daily PARoxetine (PAXIL) 10 MG tablet Indications: Anxiety Take 1 (one) tablet (10 mg total) by mouth daily Can increase in 10 mg increments weekly to max of 50 mg . 60 tablet 0 05/08/2023 Active Start: 07-26-2020 End: 04-17-2022 take 1 tablet by mouth once daily in the morning PARoxetine (PAXIL) 40 MG tablet Indications: Depression, unspecified depression type Take 1 (one) tablet (40 mg total) by mouth every morning . 90 tablet 0 12/12/2021 04/17/2022 Discontinued Start: 07-22-2020 take 1 tablet by lilo once daily in the morning PARoxetine (PAXIL) 30 MG tablet TK 1 T PO QAM 0 07/22/2020 Active Start: 01-05-2006 End: 09-26-2023 PAXIL 20 MG TAB Take one(1) tablet daily. 0 01/05/2006 09/26/2023 Discontinued (Other) Comment on above: Take one(1) tablet d aily. Take 80 mg by mouth once daily. Take 2 tablets by mo uth once daily. sulfamethoxazole 800 mg / trimethoprim 160 mg oral tablet (1 source) Dihydrofolate Reductase Inhibitor Antibacterial, Sulfonamide Antimicrobial Start: 03-20-20 End: 03-23-20 24 take 1 tablet by mouth twice daily sulfamethoxazole-t rimethoprim (BACTRIM DS) 800-160 mg per tablet Take 1 tablet by mouth two times a day for 3 days. 6 tablet 0 03/20/2024 03/23/2024 Active tiZANidine 4 mg oral tablet (20 sources) Central alpha-2 Adrenergic Agonist Start: 02-12-20 take 1 tablet by mouth three times daily as needed tiZANidine (ZANAFLEX) 4 mg tablet Indications: Lumbar pain Take 4 mg by mouth three times a day as needed. 02/11/2025 Active Start: 08-30-2021 End: 12-12-2021 take 1 tablet by mouth three times daily tiZANidine (ZANAFLEX) 2 MG tablet Take 1 (one) tablet (2 mg total) by mouth 3 (three) times a day . 90 tablet 0 08/30/2021 12/12/2021 Discontinued Start: 05-28-2020 End: 10-24-2020 take 1 tablet by mouth three times daily as needed for muscle spasms tiZANidine (ZANAFLEX) 4 MG tablet Indications: Chronic midline low back pain without sciatica Take 1 (one) tablet (4 mg total) by mouth 3 (three) times a day as needed for muscle spasms . 30 tablet 2 07/26/2020 10/24/2020 Active Start: 01-02-2019 End: 04-02-2019 take 1 tablet by mouth three times daily as needed for muscle spasms tiZANidine (ZANAFLEX) 4 MG tablet Indications: Chronic midline low back pain without sciatica Take 1 (one) tablet (4 mg total) by mouth 3 (three) times a day as needed for muscle spasms . 270 tablet 0 01/02/2019 04/02/2019 Active Start: 05-31-2018 End: 06-27-2020 take 1 capsule by mouth three times daily tiZANidine (ZANAFLEX) 4 MG capsule Indications: Chronic midline low back pain without sciatica Take 1 (one) capsule (4 mg total) by mouth 3 (three) times a day . 90 capsule 0 05/28/2020 06/27/2020 Active Start: 06-07-2017 End: 06-07-2021 tiZANidine (ZANAFLEX) 2 MG t ablet Start: 02-04-2016 End: 05-26-2018 tiZANidine (ZANAFLEX) 4 MG c apsule Indications: Chronic pain syndrome Take 1 tablet PO TID.. 90 capsule 1 02/04/2016 05/26/2018 Discontinued Start: 01-01-2015 End: 04-08-2015 take 1 tablet by mouth three times daily tiZANidine (ZANAFLEX) 4 MG capsule Indications: Back pain, chronic Take 1 tablet PO TID. 90 capsule 1 01/01/2015 04/08/2015 Discontinued (Reorder (Suppress CancelRx Message to Pharmacy)) valACYclovir 1000 mg oral tablet (20 sources) Herpesvirus Nucleoside Analog DNA Polymerase Inhibitor, Herpes Simplex Virus Nucleoside Analog DNA Polymerase Inhibitor, Herpes Zoster Virus Nucleoside Analog DNA Polymerase Inhibitor Start: 01-22-2024 End: 04-07-2025 take 1 tablet by mouth once daily valACYclovir (VALTREX) 1 gram tablet Indications: Herpes simplex vulvovaginitis Take 1 tablet by mouth once daily. 30 tablet 11 04/08/2025 Active End: 05-26-2018 valacyclovir HCl (VALTREX OR AL) Take by mouth. 05/26/2018 Discontinued valacyclovir HCl (VALTREX ORAL) Take by mouth. Active Comment on above: Take 1 tablet by lilo th once daily. Completed/Discontinued Medications Medication Drug Class(es) Dates Sig (Normalized) Sig (Original) 8 hr acetaminophen 650 mg extended release oral tablet (20 sources) Start: 05-12-2021 End: 06-07-2021 take 1 tablet by mouth every six hours as needed Mapap Arthritis Pain 650 mg CR tablet Take 650 mg by mouth every 6 (six) hours as needed for pain . 0 05/12/2021 06/07/2021 Discontinued Start: 03-01-2021 End: 03-05-2021 take 1 tablet by mouth every four hours as needed 650 mg, Oral, Every 4 hours PRN, mild pain, fever 100.4 F or greater, headaches, Starting Sun03/01/21 at 2046 Start: 05-24-2018 End: 05-26-2018 take 1 tablet by mouth every six hours as needed End: 11-20-2022 take 2 tablets by mouth every six hours as needed for pain acetaminophen (TYLENOL) 325 MG tablet Take 2 (two) tablets (650 mg total) by mouth every 6 (six) hours as needed for pain . 0 11/20/2022 Discontinued (Patient's Request) acetaminophen 650 mg / propoxyphene napsylate 100 mg oral tablet (1 source) Opioid Agonist Start: 01-05-2006 DARVOCET-N 100 100 MG-650 MG TAB 1-2 tablets every 4-6 hours as needed 0 01/05/2006 Active Comment on above: 1-2 tablets every 4- 6 hours as needed acyclovir 200 mg oral capsule (4 sources) Herpesvirus Nucleoside Analog DNA Polymerase Inhibitor, Herpes Simplex Virus Nucleoside Analog DNA Polymerase Inhibitor, Herpes Zoster Virus Nucleoside Analog DNA Polymerase Inhibitor Start: 05-24-2018 End: 05-26-2018 Start: 03-28-2018 End: 04-02-2018 take 1 tablet by mouth three times daily acyclovir (ZOVIRAX) 400 MG tablet Indications: HSV infection Take 1 (one) tablet (400 mg total) by mouth 3 (three) times a day for 5 days. 15 tablet 0 03/28/2018 04/02/2018 Active End: 05-31-2018 take 1 tablet by mouth five times daily acyclovir (ZOVIRAX) 400 MG tablet Indications: Herpes Labialis Take 400 mg by mouth 5 (five) times a day. 05/31/2018 Discontinued allopurinol 300 mg oral tablet (20 sources) Xanthine Oxidase Inhibitor Start: 10-23-2019 End: 03-01-2021 take 1 tablet by mouth once daily allopurinol (ZYLOPRIM) 300 MG tablet Indications: Gout, unspecified cause, unspecified chronicity, unspecified site Take 1 (one) tablet (300 mg total) by mouth daily Appointment needed for further refills. . 30 tablet 0 10/23/2019 03/01/2021 Discontinued (Therapy completed) Start: 04-08-2015 End: 04-02-2019 take 1 tablet by mouth once daily allopurinol (ZYLOPRIM) 300 MG tablet Indications: Gout, unspecified cause, unspecified chronicity, unspecified site Take 1 (one) tablet (300 mg total) by mouth daily . 90 tablet 0 01/02/2019 Active amoxicillin 875 mg / clavulanate 125 mg oral tablet (2 sources) Penicillin-class Antibacterial Start: 03-01-2021 End: 03-01-2021 amoxicillin-clavulanate (AUGMENTIN) 875-125 mg per tablet 1 tablet Start: 04-10-2019 End: 04-17-2019 take 1 tablet by mouth twice daily amoxicillin-clavulanate (AUGMENTIN) 875-125 mg per tablet Indications: Acute non-recurrent frontal sinusitis Take 1 (one) tablet by mouth 2 (two) times a day for 7 days . 14 tablet 0 04/10/2019 04/17/2019 Active buprenorphine 8 mg / naloxone 2 mg sublingual film (20 sources) Partial Opioid Agonist, Opioid Antagonist Start: 03-01-2021 End: 03-05-2021 8 mg of buprenorphine, Subli ngual, 2 times daily, First dose on Sun03/01/[address] one film under tongue until dissolves. If needed, a second film may be placed under tongue on the opposite side from the first film (minimize overlapping). Do not move film after placement. If a third film is needed, wait until the first 2 films have dissolved. Splitting a film in half may be clinically appropriate. Verify patient has received Patient Med Guide for Suboxone. Indication: Treatment of opioid dependence Is this a continuation of home therapy? Yes buprenorphine-na lOXone SL (SUBOXONE) 8-2 mg subl Dissolve 1 tablet under the tongue once daily. 2.5 films throughout the day 0 Active Comment on above: Dissolve 1 tablet un [place] the tongue once daily. 2.5 films throughout the day 24 hr buPROPion hydrochloride 150 mg extended release oral tablet (20 sources) Aminoketone Start: 1 End: 3 take 1 tablet by mouth once daily buPROPion (Wellbutrin XL) 150 MG 24 hr tablet Indications: Depression, unspecified depression type Take 1 (one) tablet (150 mg total) by mouth daily . 30 tablet 2 03/04/2023 05/08/2023 Discontinued (Reorder (Suppress CancelRx Message to Pharmacy)) End: 03-06-2025 bupropion HCl (WELLBUTRIN OR AL) Take by mouth two times a day. 03/06/2025 Discontinued (Other) bupropion HCl (W ELLBUTRIN ORAL) Take by mouth two times a day. Active bupropion HCl (W ELLBUTRIN ORAL) Take by mouth two times a day. 0 Active End: 09-26-2023 take 5 tablets by mouth once daily BUPROPION HCL ORAL Take by mouth. Takes up to 5 tablets daily depending on mood 0 09/26/2023 Discontinued Comment on above: Take by mouth two ti mes a day. Take by mouth. Takes up to 5 tablets daily depending on mood calcium carbonate 1500 mg / cholecalciferol 0.01 mg oral tablet (1 source) Vitamin D Start: 03-07-20 15 End: 03-06-20 16 take 2 tablets by mouth once daily calcium carbonate-vitamin D3 600 mg(1,500mg) -400 unit per tablet Take 2 tablets by mouth daily. 60 tablet 11 03/07/2015 03/06/2016 ceFAZolin (ANCEF) 1,000 mg in sodium chloride 0.9 % (NS) 50 mL IVPB (1 source) Start: 05-25-20 18 End: 05-26-20 18 take 1000 mg intravenous route every eight hours ceFAZolin (ANCEF) 1,000 mg in sodium chloride 0.9 % (NS) 50 mL IVPB cholecalciferol 1.25 mg oral capsule (20 sources) Vitamin D Start: 05-31-20 18 End: 03-01-20 21 take 1 capsule by mouth every week cholecalciferol, vitamin D3, 50,000 unit capsule Indications: Vitamin D deficiency Take 1 (one) capsule by mouth once a week. 4 capsule 1 05/31/2018 03/01/2021 Discontinued (Therapy completed) Start: 08-19-2012 End: 05-31-2018 cholecalciferol, vitamin D3, 50,000 unit capsule 50 ml clindamycin 12 mg/ml injection (1 source) Lincosamide Antibacterial Start: 05-24-2018 End: 05-24-2018 clindamycin (CLEOCIN) IVPB 600 mg (premix) cyclobenzaprine hydrochloride 10 mg oral tablet (20 sources) Muscle Relaxant Start: 11-20-2023 End: 03-06-2025 take 1 tablet by mouth three times daily as needed cyclobenzaprine (FLEXERIL) 10 mg tablet Indications: Left sided sciatica Take 1 tablet by mouth three times a day as needed. 90 tablet 3 08/14/2024 03/06/2025 Discontinued (Other) Start: 03-07-2023 End: 04-06-2023 take 1 tablet by mouth three times daily as needed for muscle spasms cyclobenzaprine (FLEXERIL) 5 MG tablet Take 1 (one) tablet (5 mg total) by mouth 3 (three) times a day as needed for muscle spasms . 30 tablet 0 03/07/2023 04/06/2023 Active Start: 06-07-2021 End: 08-30-2021 take 0.5 tablet by mouth three times daily cyclobenzaprine (FLEXERIL) 10 MG tablet Indications: Cervicalgia Take 0.5 (one-half) tablet (5 mg total) by mouth 3 (three) times a day . 90 tablet 2 06/07/2021 08/30/2021 Discontinued Start: 12-01-2015 End: 09-26-2023 take 1 tablet by mouth every eight hours as needed cyclobenzaprine (FLEXERIL) 10 mg tablet Take 1 tablet by mouth three times a day as needed. 30 tablet 0 11/20/2023 Active End: 05-26-2018 take 1 tablet by mouth three times daily as needed for muscle spasms cyclobenzaprine (FEXMID) 7.5 MG tablet Take 7.5 mg by mouth 3 (three) times a day as needed for muscle spasms. 05/26/2018 Discontinued Comment on above: Take 1 tablet by lilo th three times a day as needed. Take 10 mg by mouth three times a day as needed. diazePAM 5 mg oral tablet (10 sources) Benzodiazepine Start: 03-22-2021 End: 04-14-2021 diazePAM (VALIUM) 5 MG tablet Indications: Acute left-sided thoracic back pain Take 1 (one) tablet (5 mg total) by mouth 2 (two) times a day as needed for anxiety (Days supply per fill: 3) . 10 tablet 0 03/22/2021 04/14/2021 Discontinued End: 05-26-2018 take 1 tablet by mouth three times daily diazepam (VALIUM) 5 MG tablet Take 5 mg by mouth 3 (three) times a day. 0 05/26/2018 Discontinued (Stop Taking at Discharge) diphenhydrAMINE hydrochloride 25 mg oral tablet (20 sources) Histamine-1 Receptor Antagonist Start: 05-25-2018 End: 05-26-2018 diphenhydrAMINE (BENADRYL) oral solid 25 mg Start: 05-24-2018 End: 05-24-2018 diphenhydrAMINE (BENADRYL) i njection 25 mg take 1 tablet by lilo th three times daily as needed diphenhydramine HCl (BENADRYL ALLERGY ORAL) Take 1 tablet by mouth three times a day as needed. Active take 1 tablet by lilo th three times daily as needed diphenhydramine HCl (BENADRYL ALLERGY ORAL) Take 1 tablet by mouth three times a day as needed. 0 Active Comment on above: Take 1 tablet by lilo th three times a day as needed. diphenhydrAMINE hydrochloride 10 mg/ml / zinc acetate 1 mg/ml topical cream (4 sources) Histamine-1 Receptor Antagonist Start: End: diphenhydrAMINE-zin c acetate (BENADRYL ITCH STOPPING) cream Indications: Poison cheo Apply to affected area three times a day as needed for itching/rash for up to 7 days. 28 g 1 03/27/2024 04/03/2024 DULoxetine 60 mg delayed release oral capsule (11 sources) Serotonin and Norepinephrine Reuptake Inhibitor Start: End: take 1 capsule by mouth once daily DULoxetine (CYMBALTA) 60 MG capsule Indications: Chronic midline low back pain without sciatica Take 1 (one) capsule (60 mg total) by mouth daily . 30 capsule 0 05/28/2020 07/26/2020 Discontinued Start: 01-02-2019 End: 07-09-2019 take 1 capsule by mouth once daily DULoxetine (CYMBALTA) 60 MG capsule Indications: Chronic midline low back pain without sciatica Take 1 (one) capsule (60 mg total) by mouth daily . 90 capsule 0 04/10/2019 07/09/2019 Active Start: 12-23-2018 End: 01-02-2019 DULoxetine (CYMBALTA) 30 MG capsule Take one per day for 1st week, then take 2 per day. . 180 capsule 0 12/23/2018 01/02/2019 Discontinued Start: 11-11-2018 DULoxetine (CY MBALTA) 30 MG capsule Take one per day for 1st week, then take 2 per day. . 30 capsule 11 11/11/2018 Active eletriptan 40 mg oral tablet (2 sources) Serotonin-1b and Serotonin-1d Receptor Agonist Start: 01-05-2006 End: 09-26-2023 RELPAX 40 MG TAB as needed for migraine 0 01/05/2006 09/26/2023 Discontinued (Other) Comment on above: as needed for migrai ne 50 ml fentaNYL 0.05 mg/ml injection (2 sources) Opioid Agonist Start: 05-24-2018 End: 05-24-2018 fentaNYL (SUBLIMAZE) injection 50 mcg 1 ml heparin sodium, porcine 5000 unt/ml injection (1 source) Start: 05-24-2018 End: 05-26-2018 iopamidol (2 sources) Radiographic Contrast Agent Start: 04-22-2021 End: 04-22-2021 iopamidol (ISOVUE-370) 76 % oral solution 6 mL Start: 05-24-2018 End: 05-24-2018 iopamidol (ISOVUE-370) 76 % injection 75 mL iopamidoL (ISOVUE-370) 76 % injection 75 mL (1 source) Start: 04-22-2021 End: 04-22-2021 iopamidoL (ISOVUE-370) 76 % injection 75 mL metFORMIN hydrochloride 500 mg oral tablet (6 sources) Biguanide Start: 10-23-2019 End: 05-28-2020 take 1 tablet by mouth twice daily at mealtime metFORMIN (GLUCOPHAGE) 500 MG tablet Indications: Prediabetes Take 1 (one) tablet (500 mg total) by mouth 2 (two) times a day with meals Appointment needed for further refills. . 60 tablet 0 10/23/2019 05/28/2020 Discontinued Start: 01-02-2019 End: 04-02-2019 take 1 tablet by mouth twice daily at mealtime metFORMIN (GLUCOPHAGE) 500 MG tablet Indications: Prediabetes Take 1 (one) tablet (500 mg total) by mouth 2 (two) times a day with meals . 180 tablet 0 01/02/2019 Active Start: 12-23-2018 End: 01-02-2019 metFORMIN (GLUCOPHAGE) 500 M G tablet Take once a day for two weeks then twice a day . 180 tablet 0 12/23/2018 01/02/2019 Discontinued Start: 11-11-2018 metFORMIN (GLU COPHAGE) 500 MG tablet Take once a day for two weeks then twice a day . 60 tablet 2 11/11/2018 Active methylPREDNISolone (7 sources) Corticosteroid Start: 03-27-2024 End: 04-22-2024 methylPREDNISolone (MEDROL, MACK,) 4 mg Dose-Pack Indications: Poison cheo As Instructed per package 21 tablet 0 03/27/2024 04/22/2024 Discontinued (Other) Start: 03-27-2024 methylPREDNISo lone (MEDROL, MACK,) 4 mg Dose-Pack Indications: Poison cheo As Instructed per package 21 tablet 0 03/27/2024 Active morphine sulfate 20 mg/ml oral solution (1 source) Opioid Agonist Start: 03-22-2021 End: 03-22-2021 morphine concentrated 10 mg/0.5 mL oral syringe 10 mg naloxone (NARCAN) injection 0.1 mg (2 sources) Start: 03-01-2021 End: 03-05-2021 naloxone (NARCAN) injection 0.1 mg Start: 05-24-2018 End: 05-26-2018 naloxone (NARCAN) injection 0.1 mg naproxen 375 mg delayed release oral tablet (3 sources) Nonsteroidal Anti-inflammatory Drug Start: 03-22-2021 End: 03-30-2021 take 1 tablet by mouth twice daily as needed naproxen (EC NAPROSYN) 375 MG TbEC Take 1 (one) tablet (375 mg total) by mouth 2 (two) times a day as needed . 20 tablet 0 03/22/2021 03/30/2021 Discontinued nicotine (3 sources) Cholinergic Nicotinic Agonist Start: 11-11-2018 End: 01-02-2019 nicotine 21-14-7 mg/[address] 14 mg on the skin daily for 42 days, THEN 7 mg daily for 14 days. 56 each 0 11/11/2018 01/02/2019 Discontinued Start: 11-11-2018 End: 01-06-2019 nicotine 21-14-7 mg/[address] 14 mg on the skin daily for 42 days, THEN 7 mg daily for 14 days. 56 each 0 11/11/2018 01/06/2019 Active Start: 05-24-2018 End: 05-26-2018 nicotine (NICODERM CQ) 14 mg /24 hr 1 patch omeprazole 20 mg delayed release oral capsule (20 sources) Proton Pump Inhibitor Start: 01-15-2014 End: 03-01-2021 take 1 capsule by mouth once daily omeprazole (PRILOSEC) 20 MG capsule Take 1 capsule by mouth daily. 0 01/15/2014 06/27/2018 Discontinued (Reorder (Suppress CancelRx Message to Pharmacy)) 12 hr orphenadrine citrate 100 mg extended release oral tablet (5 sources) Muscle Relaxant End: 05-26-2018 take 1 tablet by mouth twice daily orphenadrine (NORFLEX) 100 mg tablet Take 100 mg by mouth 2 (two) times a day. 0 05/26/2018 Discontinued (Stop Taking at Discharge) pantoprazole 40 mg delayed release oral tablet (20 sources) Proton Pump Inhibitor Start: 04-13-2021 End: 04-17-2022 pantoprazole (PROTONIX) 40 MG tablet Start: 03-04-2021 End: 04-04-2021 take 1 tablet by mouth once daily pantoprazole (PROTONIX) 40 MG tablet Indications: Gastroesophageal reflux disease, unspecified whether esophagitis present Take 1 (one) tablet (40 mg total) by mouth daily . 30 tablet 0 03/05/2021 03/30/2021 Discontinued Start: 03-01-2021 End: 03-31-2021 take 1 tablet by mouth twice daily pantoprazole (PROTONIX) 40 MG tablet Indications: Gastroesophageal reflux disease, unspecified whether esophagitis present Take 1 (one) tablet (40 mg total) by mouth 2 (two) times a day . 60 tablet 0 03/01/2021 03/05/2021 Discontinued (Reorder) polyethylene glycol [id number] [id number] mg powder for oral solution (20 sources) Osmotic Laxative Start: 05-04-2021 End: 11-20-2022 polyethylene glycol (GLYCOLAX) 17 gram/dose powder Take 17 (seventeen) g by mouth daily . 0 05/04/2021 11/20/2022 Discontinued (Patient's Request) predniSONE 10 mg oral tablet (4 sources) Start: 04-02-2024 End: 04-22-2024 predniSONE (DELTASONE) 10 mg tablet Indications: contact dermatitis Prednisone taper; take once daily with food: 6 x 2d/5x2d/4x2d/3x2d/2x2d /1x2d/0.5x2d 43 tablet 0 04/02/2024 04/22/2024 Discontinued (Other) propranolol hydrochloride 40 mg oral tablet (2 sources) beta-Adrenergic Maria T Start: 11-08-2006 End: 09-26-2023 INDERAL 40 MG TAB Take one(1) tablet twice daily. 0 11/08/2006 09/26/2023 Discontinued Comment on above: Take one(1) tablet t wice daily. 1000 ml sodium chloride 9 mg/ml injection (7 sources) Start: 03-22-2021 End: 03-22-2021 sodium chloride 0.9% (NS) bolus 1,000 mL Start: 03-22-2021 End: 03-22-2021 sodium chloride (PF) (NS) fl ush 5 mL Start: 03-22-2021 End: 03-22-2021 sodium chloride (PF) (NS) fl ush 5 mL Start: 03-01-2021 End: 03-05-2021 sodium chloride (PF) (NS) fl ush 5 mL Start: 05-24-2018 End: 05-24-2018 Start: 05-24-2018 End: 05-26-2018 sodium chloride (PF) (NS) fl ush 5 mL sulfaSALAzine 500 mg oral tablet (4 sources) Aminosalicylate Start: 11-08-2006 End: 09-26-2023 SULFASALAZINE 500 MG TAB Take (2) twice daily 0 11/08/2006 09/26/2023 Discontinued (Other) Comment on above: Take (2) twice daily Take (3) twice daily terbinafine 250 mg oral tablet (20 sources) Allylamine Antifungal Start: 03-27-2024 End: 06-06-2024 take 1 tablet by mouth once daily terbinafine HCl (LAMISIL) 250 mg tablet Indications: Toenail fungus take 1 tablet by mouth once daily 90 tablet 0 06/06/2024 06/06/2024 Discontinued Start: 04-26-2023 End: 2023 take 1 tablet by mouth once daily terbinafine HCL (LAMISIL) 250 mg tablet Indications: Onychomycosis Take 1 (one) tablet (250 mg total) by mouth daily . 84 tablet 0 05/08/2023 2023 Start: 09-11-2022 End: 12-04-2022 take 1 tablet by mouth once daily terbinafine HCL (LAMISIL) 250 mg tablet Indications: Onychomycosis Take 1 (one) tablet (250 mg total) by mouth daily . 84 tablet 0 09/11/2022 11/20/2022 Discontinued (Patient's Request) traMADol hydrochloride 50 mg oral tablet (1 source) Opioid Agonist End: 09-26-2023 take 1 tablet by mouth every eight hours as needed traMADol (ULTRAM) 50 mg tablet Take 50 mg by mouth three times a day as needed for pain. 0 09/26/2023 Discontinued Comment on above: Take 50 mg by mouth three times a day as needed for pain. triamcinolone acetonide 5 mg/ml topical cream (3 sources) Corticosteroid Start: 05-28-2020 End: 07-26-2020 triamcinolone (KENALOG) 0.5 % cream Indications: Skin lesion of breast Apply topically 2 (two) times a day . 30 g 1 05/28/2020 07/26/2020 Discontinued vancomycin 125 mg oral capsule (20 sources) Glycopeptide Antibacterial Start: 04-22-2021 End: 05-02-2021 take 1 capsule by mouth four times daily Start: 03-27-2021 End: 04-14-2021 take 1 capsule by mouth once daily vancomycin (VANCOCIN) 125 MG capsule Indications: C. difficile colitis Take 1 (one) capsule (125 mg total) by mouth daily Start: 03/27/21. 28 capsule 0 03/27/2021 04/14/2021 Discontinued Start: 03-27-2021 take 1 capsule by [facility] once daily vancomycin (VANCOCIN) 125 MG capsule Indications: C. difficile colitis Take 1 (one) capsule (125 mg total) by mouth daily Start: 03/27/21. 28 capsule 0 03/27/2021 Active Start: 03-27-2021 take 1 capsule by [facility] once daily vancomycin (VANCOCIN) 125 MG capsule Indications: C. difficile colitis Take 1 (one) capsule (125 mg total) by mouth daily Start: 03/27/21. 28 capsule 0 03/27/2021 Active Start: 03-14-2021 End: 04-15-2021 take 1 capsule by mouth four times daily, then take 1 capsule by mouth twice daily vancomycin (VANCOCIN) 125 MG capsule Indications: C. difficile colitis Take 1 (one) capsule (125 mg total) by mouth 4 (four) times a day for 3 days, THEN 1 (one) capsule (125 mg total) 2 (two) times a day for 8 days. 28 capsule 0 03/17/2021 03/28/2021 Start: 03-02-2021 End: 03-12-2021 take 1 capsule by mouth four times daily vancomycin (VANCOCIN) 125 MG capsule Take 1 (one) capsule (125 mg total) by mouth 4 (four) times a day for 7 days . 28 capsule 0 03/05/2021 03/12/2021 Active Start: 05-24-2018 End: 05-25-2018 vancomycin (VANCOCIN) 1500 m g in sodium chloride 0.9% (NS) 500 mL IVPB Problems Active Problems Problem Classification Problem Date Documented Da te Episodic/Chronic Anxiety disorders (20 sources) Generalized anxiety disorder; Translations: [Anxiety state] Onset: 05-08-2023 01-05-2006 Chronic Diabetes mellitus without complication (20 sources) Impaired fasting glycaemia; Translations: [Prediabetes] Onset: 09-21-2011 06-08-2014 Episodic Diabetes mellitus without complication (5 sources) Prediabetes; Translations: [Prediabetes] Onset: 01-04-2019 01-04-2019 Diseases of white blood cells (3 sources) Leukocytosis; Translations: [Elevated white blood cell count, unspecified] Chronic Disorders of teeth and jaw (1 source) Infection of tooth; Translations: [Periapical abscess without sinus] Episodic E Codes: Fall (2 sources) Fall; Translations: [Unspecified fall, initial encounter] 11-11-2024 Episodic Essential hypertension (2 sources) Essential (primary) hypertension; Translations: [Essential hypertension] Onset: 03-19-2024 03-27-2024 Chronic Gastrointestinal hemorrhage (2 sources) Feces color: tarry; Translations: [Melena] Onset: 03-19-2024 Episodic Genitourinary symptoms and ill-defined conditions (20 sources) Mixed urinary incontinence; Translations: [Mixed incontinence] Onset: 04-15-2018 04-15-2018 Chronic Genitourinary symptoms and ill-defined conditions (3 sources) Polyuria; Translations: [Dysuria] Episodic Gout and other crystal arthropathies (20 sources) Gout; Translations: [Gout, unspecified] Onset: 05-31-2018 05-31-2018 Chronic Headache, including migraine (20 sources) Muscular headache ; Translations: [Tension-type headache, unspecified, not intractable] Onset: 07-22-2005 03-11-2015 Chronic Headache; including migraine (2 sources) Headache; Translations: [Headache] 11-11-2024 Episodic Lymphadenitis (3 sources) Lymphadenopathy Episodic Menstrual disorders (20 sources) Irregular periods; Translations: [Irregular menstruation, unspecified] Onset: 05-12-2013 06-08-2014 Chronic Mood disorders (20 sources) Dysthymia; Translations: [Recurrent major depressive episodes, moderate ] Onset: 04-10-2011 06-08-2014 Chronic Mycoses (20 sources) Onychomycosis; Translations: [Tinea unguium] Onset: 09-11-2022 Episodic Nausea and vomiting (2 sources) Nausea; Translations: [Nausea] Episodic Nutritional deficiencies (20 sources) Vitamin D deficiency; Translations: [Vitamin D deficiency, unspecified] Onset: 03-14-2013 06-08-2014 Chronic Osteoarthritis (20 sources) Osteoarthritis of knee; Translations: [Osteoarthritis] Onset: 01-05-2006 06-08-2014 Chronic Other bone disease and musculoskeletal deformities (10 sources) Segmental and somatic dysfunction of head region; Translations: [Somatic dysfunction of head region] Episodic Other bone disease and musculoskeletal deformities (6 sources) Somatic dysfunction of abdominal region; Translations: [Segmental and somatic dysfunction of abdomen and other regions] Episodic Other circulatory disease (2 sources) Transient hypertension; Translations: [Elevated blood-pressure reading, without diagnosis of hypertension] 11-11-2024 Episodic Other connective tissue disease (4 sources) Shoulder girdle weakness; Translations: [Other symptoms and signs involving the musculoskeletal system] Episodic Other connective tissue disease (1 source) Right rotator cuff syndrome; Translations: [Unspecified rotator cuff tear or rupture of right shoulder, not specified as traumatic] 02-28-2023 Episodic Other connective tissue disease (1 source) Bilateral rotator cuff arthropathy of shoulder; Translations: [Unspecified rotator cuff tear or rupture of right shoulder, not specified as traumatic] 02-28-2023 Episodic Other connective tissue disease (2 sources) Unspecified rotator cuff tear or rupture of right shoulder, not specified as traumatic; Translations: [Unspecified rotator cuff tear or rupture of right shoulder, not specified as traumatic] Onset: 02-21-2023 Episodic Other diseases of bladder and urethra (20 sources) Overactive bladder; Translations: [Overactive bladder] Onset: 09-26-2023 09-26-2023 Chronic Other disorders of stomach and duodenum (4 sources) Indigestion; Translations: [Functional dyspepsia] 08-14-2024 Episodic Other gastrointestinal disorders (2 sources) Irritable bowel syndrome with diarrhea; Translations: [Irritable bowel syndrome with diarrhea] Chronic Other gastrointestinal disorders (2 sources) Irritable bowel syndrome; Translations: [Irritable bowel syndrome without diarrhea] Chronic Other gastrointestinal disorders (20 sources) Diarrhea; Translations: [Disorder of digestive system] Onset: 08-04-2011 02-07-2017 Episodic Other gastrointestinal disorders (2 sources) Acute diarrhea; Translations: [Diarrhea, unspecified] Episodic Other inflammatory condition of skin (4 sources) Itching ; Translations: [Pruritus, unspecified] 01-22-2024 Episodic Other nervous system disorders (17 sources) Walking disability; Translations: [Walking difficulty due to joint disorder] Onset: 02-08-2016 02-08-2016 Chronic Other nervous system disorders (1 source) Neuropathy Chronic Other nervous system disorders (2 sources) Other chronic pain; Translations: [Other chronic pain] Onset: 03-29-2022 Chronic Other nervous system disorders (2 sources) Other acute postprocedural pain; Translations: [Other acute postprocedural pain] Onset: 03-07-2023 Episodic Other non-traumatic joint disorders (2 sources) Other specific arthropathies, not elsewhere classified, right shoulder; Translations: [Other specific arthropathies, not elsewhere classified, right shoulder] Onset: 02-21-2023 Chronic Other non-traumatic joint disorders (1 source) Knee pain; Translations: [Arthralgia of right knee] Episodic Other non-traumatic joint disorders (20 sources) Shoulder pain; Translations: [Pain in right shoulder] Onset: 05-06-2022 Episodic Other non-traumatic joint disorders (2 sources) Chronic pain of left upper limb; Translations: [Pain in left shoulder] Episodic Other non-traumatic joint disorders (2 sources) Pain in right shoulder; Translations: [Pain in right shoulder] Onset: 03-07-2023 Episodic Other non-traumatic joint disorders (6 sources) Pain in left knee; Translations: [Left knee pain] Onset: 02-08-2016 02-08-2016 Other nutritional; endocrine; and metabolic disorders (20 sources) Obesity; Translations: [Obesity, unspecified] Onset: 04-15-2018 04-15-2018 Chronic Other nutritional; endocrine; and metabolic disorders (1 source) Obesity caused by energy imbalance; Translations: [Other obesity due to excess calories] 05-06-2024 Chronic Other nutritional; endocrine; and metabolic disorders (1 source) Other obesity due to excess calories; Translations: [Class 1 obesity due to excess calories with body mass index (BMI) of 30.0 to 30.9 in adult, unspecified whether serious comorbidity present] Onset: 04-22-2024 Chronic Other nutritional; endocrine; and metabolic disorders (1 source) Body mass index (BMI) 30.0-30.9, adult; Translations: [Class 1 obesity due to excess calories with body mass index (BMI) of 30.0 to 30.9 in adult, unspecified whether serious comorbidity present] Onset: 04-22-2024 Chronic Other nutritional; endocrine; and metabolic disorders (6 sources) Obese class I; Translations: [Obesity (BMI 30.0-34.9)] Onset: 04-15-2018 04-15-2018 Other skin disorders (3 sources) Rash and other nonspecific skin eruption; Translations: [Eruption] Onset: 03-28-2018 Episodic Other skin disorders (2 sources) Mass of hip joint; Translations: [Localized swelling, mass and lump, right lower limb] Episodic Other skin disorders (1 source) Lesion of skin of breast; Translations: [Skin lesion of breast] Other upper respiratory infections (4 sources) Acute frontal sinusitis; Translations: [Upper respiratory infection] Episodic Paralysis (6 sources) Weakness of left leg; Translations: [Weakness of left leg] Onset: 02-08-2016 02-08-2016 Prolapse of female genital organs (20 sources) Prolapse of female genital organs; Translations: [Cystocele without uterine prolapse] Onset: 04-15-2018 04-15-2018 Chronic Regional enteritis and ulcerative colitis (20 sources) Ulcerative colitis; Translations: [Ulcerative colitis, unspecified, without complications] Onset: 07-16-2013 06-08-2014 Chronic Residual codes; unclassified (20 sources) Chronic pain; Translations: [Chronic pain syndrome] Onset: 07-16-2013 Resolved: 11-20-2022 06-08-2014 Chronic Residual codes; unclassified (2 sources) Other specified postprocedural states; Translations: [Other specified postprocedural states] Onset: 03-07-2023 Episodic Spondylosis; intervertebral disc disorders; other back problems (20 sources) Degeneration of cervical intervertebral disc; Translations: [Other cervical disc degeneration, unspecified cervical region] Onset: 08-30-2021 Chronic Spondylosis; intervertebral disc disorders; other back problems (20 sources) Neck pain; Translations: [Low back pain] Onset: 09-21-2011 06-08-2014 Episodic Sprains and strains (20 sources) Traumatic rupture of rotator cuff; Translations: [Strain of muscle(s) and tendon(s) of the rotator cuff of right shoulder, subsequent encounter] Onset: 02-21-2023 02-20-2023 Episodic Substance-related disorders (20 sources) History of drug abuse; Translations: [Other psychoactive substance abuse, in remission] Onset: 03-14-2021 Chronic Unclassified (20 sources) Tobacco user; Translations: [Chronic pain] Onset: 05-12-2013 06-08-2014 Chronic Unclassified (20 sources) Blood chemistry abnormal; Translations: [Encounter for screening for malignant neoplasm of cervix] Onset: 07-16-2013 Resolved: 05-27-2020 06-08-2014 Episodic Unclassified (1 source) Laceration of hand without foreign body; Translations: [Laceration of right hand without foreign body, initial encounter] Unclassified (1 source) Lumbar pain; Translations: [Lumbar pain] Onset: 03-06-2025 Unclassified (1 source) rash Onset: 04-02-2024 Urinary tract infections (1 source) Urinary tract infection, site not specified; Translations: [Urinary tract infection without hematuria, site unspecified] Onset: 03-19-2024 Episodic Viral infection (20 sources) Genital herpes simplex; Translations: [Herpetic vulvovaginitis] Onset: 05-03-2011 Resolved: 05-27-2020 03-11-2015 Chronic Viral infection (3 sources) Herpesviral infection, unspecified; Translations: [Herpes simplex] Onset: 03-28-2018 Episodic Past or Other Problems Problem Classification Problem Date Documented Da te Episodic/Chronic Abdominal pain (20 sources) Epigastric pain; Translations: [Epigastric pain] Onset: 07-17-2013 Resolved: 08-30-2021 06-08-2014 Episodic Alcohol-related disorders (20 sources) Alcohol abuse; Translations: [Alcohol abuse, uncomplicated] Onset: 07-16-2013 Resolved: 11-20-2022 06-08-2014 Chronic Allergic reactions (20 sources) Inflammatory dermatosis; Translations: [Dermatitis, unspecified] Onset: 10-09-2023 09-26-2023 Episodic Blindness and vision defects (20 sources) Lazy eye; Translations: [Unspecified amblyopia, left eye] Onset: 11-20-2022 Episodic Esophageal disorders (20 sources) Gastro-esophageal reflux disease with esophagitis; Translations: [Reflux esophagitis] Onset: 09-21-2011 Resolved: 11-20-2022 06-08-2014 Chronic Fluid and electrolyte disorders (20 sources) Hypo-osmolality and or hyponatremia; Translations: [Hypokalemia] Onset: 07-16-2013 Resolved: 05-27-2020 06-08-2014 Episodic Gastritis and duodenitis (20 sources) Gastroduodenitis; Translations: [Gastroduodenitis, unspecified, without bleeding] Onset: 07-16-2013 Resolved: 11-20-2022 06-08-2014 Episodic Immunizations and screening for infectious disease (20 sources) Influenza vaccination given; Translations: [Encounter for immunization] Onset: 11-21-2022 Resolved: 06-01-2023 Episodic Inflammation; infection of eye (except that caused by tuberculosis or sexually transmitteddisease) (20 sources) Acute conjunctivitis of left eye; Translations: [Unspecified acute conjunctivitis, left eye] Onset: 11-06-2022 Resolved: 11-20-2022 Episodic Inflammatory diseases of female pelvic organs (20 sources) Cellulitis of perineum; Translations: [Acute vulvitis] Onset: 05-31-2018 Resolved: 04-10-2019 04-10-2019 Episodic Intestinal infection (20 sources) Clostridium difficile colitis; Translations: [Enterocolitis due to Clostridium difficile, not specified as recurrent] Onset: 03-02-2021 Resolved: 08-30-2021 03-02-2021 Episodic Malaise and fatigue (20 sources) Malaise and fatigue; Translations: [Other malaise] Onset: 08-08-2012 Resolved: 05-27-2020 06-08-2014 Episodic Noninfectious gastroenteritis (20 sources) Inflammatory bowel disease; Translations: [Noninfective gastroenteritis and colitis, unspecified] Onset: 03-01-2021 03-02-2021 Episodic Nonspecific chest pain (2 sources) Chest pain; Translations: [Chest pain, unspecified] Onset: 04-22-2024 05-06-2024 Episodic Other acquired deformities (20 sources) Biomechanical lesion, unspecified; Translations: [Somatic dysfunction of lumbar region] Onset: 03-11-2015 Resolved: 05-27-2020 07-22-2015 Episodic Other acquired deformities (20 sources) Somatic dysfunction of sacral region; Translations: [Biomechanical lesion, unspecified] Onset: 03-11-2015 Resolved: 05-27-2020 05-27-2020 Episodic Other acquired deformities (20 sources) Somatic dysfunction of lower limb; Translations: [Biomechanical lesion, unspecified] Onset: 03-11-2015 Resolved: 11-20-2022 05-27-2020 Episodic Other acquired deformities (20 sources) Somatic dysfunction of pelvic region; Translations: [Biomechanical lesion, unspecified] Onset: 03-11-2015 Resolved: 05-27-2020 05-27-2020 Episodic Other acquired deformities (20 sources) Somatic dysfunction of thoracic region; Translations: [Biomechanical lesion, unspecified] Onset: 03-18-2015 Resolved: 05-27-2020 05-27-2020 Episodic Other acquired deformities (20 sources) Somatic dysfunction of head region; Translations: [Biomechanical lesion, unspecified] Onset: 04-08-2015 Resolved: 05-27-2020 05-27-2020 Episodic Other bone disease and musculoskeletal deformities (20 sources) Somatic dysfunction; Translations: [Somatic dysfunction of rib] Onset: 03-11-2015 Resolved: 05-27-2020 03-18-2015 Episodic Other bone disease and musculoskeletal deformities (20 sources) Somatic dysfunction of upper limb; Translations: [Biomechanical lesion, unspecified] Onset: 03-18-2015 Resolved: 06-01-2023 07-22-2015 Episodic Other bone disease and musculoskeletal deformities (20 sources) Somatic dysfunction of rib; Translations: [Biomechanical lesion, unspecified] Onset: 03-11-2015 Resolved: 05-27-2020 07-22-2015 Episodic Other bone disease and musculoskeletal deformities (20 sources) Cervical somatic dysfunction; Translations: [Other biomechanical lesions of cervical region] Onset: 03-11-2015 Resolved: 11-20-2022 07-22-2015 Episodic Other bone disease and musculoskeletal deformities (20 sources) Segmental and somatic dysfunction of thoracic region; Translations: [Somatic dysfunction of thoracic region] Onset: 05-06-2022 Resolved: 06-01-2023 Episodic Other bone disease and musculoskeletal deformities (20 sources) Segmental and somatic dysfunction of lumbar region; Translations: [Somatic dysfunction of lumbar region] Onset: 06-02-2022 Resolved: 11-20-2022 Episodic Other bone disease and musculoskeletal deformities (20 sources) Somatic dysfunction of back region; Translations: [Segmental and somatic dysfunction of abdomen and other regions] Onset: 12-11-2022 Episodic Other bone disease and musculoskeletal deformities (6 sources) Somatic dysfunction of head region; Translations: [Nonallopathic lesion of head region] Onset: 04-08-2015 Resolved: 05-27-2020 07-22-2015 Other bone disease and musculoskeletal deformities (7 sources) Somatic dysfunction of lumbar region; Translations: [Nonallopathic lesion of lumbar region] Onset: 03-11-2015 Resolved: 05-27-2020 07-22-2015 Other bone disease and musculoskeletal deformities (6 sources) Somatic dysfunction of sacral region; Translations: [Nonallopathic lesion of sacral region] Onset: 03-11-2015 Resolved: 05-27-2020 07-22-2015 Other bone disease and musculoskeletal deformities (6 sources) Somatic dysfunction of lower limb; Translations: [Nonallopathic lesion of lower extremities] Onset: 03-11-2015 Resolved: 05-27-2020 07-22-2015 Other bone disease and musculoskeletal deformities (6 sources) Somatic dysfunction of pelvic region; Translations: [Nonallopathic lesion of pelvic region] Onset: 03-11-2015 Resolved: 05-27-2020 07-22-2015 Other bone disease and musculoskeletal deformities (7 sources) Somatic dysfunction of thoracic region; Translations: [Nonallopathic lesion of thoracic region] Onset: 03-18-2015 Resolved: 05-27-2020 07-22-2015 Other connective tissue disease (20 sources) Other symptoms and signs involving the musculoskeletal system; Translations: [Lateral epicondylitis] Onset: 12-07-2011 Resolved: 11-20-2022 02-08-2016 Episodic Other connective tissue disease (20 sources) Cramp in limb; Translations: [Cramp and spasm] Onset: 05-12-2013 Resolved: 05-27-2020 06-08-2014 Episodic Other connective tissue disease (20 sources) Lateral epicondylitis; Translations: [Lateral epicondylitis, unspecified elbow] Onset: 12-07-2011 06-08-2014 Episodic Other connective tissue disease (20 sources) Rotator cuff arthropathy of right shoulder; Translations: [Unspecified rotator cuff tear or rupture of right shoulder, not specified as traumatic] Onset: 05-15-2022 Resolved: 11-20-2022 Episodic Other connective tissue disease (1 source) Muscle pain; Translations: [Myalgia, unspecified site] 04-22-2024 Episodic Other connective tissue disease (1 source) Myalgia, unspecified site; Translations: [Myalgia] Onset: 04-22-2024 Episodic Other disorders of stomach and duodenum (1 source) Functional dyspepsia; Translations: [Indigestion] Onset: 04-22-2024 Episodic Other gastrointestinal disorders (5 sources) Disorder of digestive system; Translations: [Personal history of digestive disease] Onset: 08-04-2011 06-08-2014 Episodic Other gastrointestinal disorders (20 sources) Personal history of other diseases of the digestive system; Translations: [History of disorder of digestive system] Onset: 08-04-2011 06-08-2014 Episodic Other gastrointestinal disorders (1 source) Diarrhea, unspecified; Translations: [Diarrhea, unspecified] Onset: 11-05-2024 Episodic Other lower respiratory disease (20 sources) Snoring; Translations: [Snoring] Onset: 11-11-2018 11-11-2018 Episodic Other lower respiratory disease (20 sources) Dyspnea on exertion; Translations: [Dyspnea, unspecified] Onset: 11-21-2022 Episodic Other nervous system disorders (20 sources) Bilateral lower limb piriformis syndrome; Translations: [Lesion of sciatic nerve, bilateral lower limbs] Onset: 05-06-2022 Resolved: 11-22-2022 Chronic Other nervous system disorders (20 sources) H/O: migraine; Translations: [Personal history of other diseases of the nervous system and sense organs] Onset: 07-22-2005 09-26-2023 Episodic Other non-traumatic joint disorders (20 sources) Pain in left knee; Translations: [Hip pain] Onset: 04-29-2015 Resolved: 08-30-2021 02-08-2016 Episodic Other non-traumatic joint disorders (20 sources) Hip pain; Translations: [Pain in left hip] Onset: 04-29-2015 04-29-2015 Episodic Other non-traumatic joint disorders (12 sources) Walking disability; Translations: [Joint disorder, unspecified] Onset: 02-08-2016 02-08-2016 Episodic Other non-traumatic joint disorders (20 sources) Difficulty walking; Translations: [Joint disorder, unspecified] Onset: 02-08-2016 Resolved: 11-20-2022 02-08-2016 Episodic Other non-traumatic joint disorders (20 sources) Bilateral chronic pain of upper limbs; Translations: [Pain in right shoulder] Onset: 05-06-2022 05-06-2022 Episodic Other non-traumatic joint disorders (2 sources) Pain in left shoulder; Translations: [Pain in left shoulder] Onset: 03-29-2022 Episodic Other non-traumatic joint disorders (1 source) Pain in unspecified joint; Translations: [Pain in unspecified joint] Onset: 11-25-2024 Episodic Other skin disorders (14 sources) Dry skin; Translations: [Xerosis cutis] Onset: 09-11-2022 Episodic Other skin disorders (17 sources) Xeroderma; Translations: [Xerosis cutis] Onset: 09-11-2022 09-11-2022 Episodic Pancreatic disorders (20 sources) Acute pancreatitis; Translations: [Acute pancreatitis without necrosis or infection, unspecified] Onset: 08-29-2013 Resolved: 05-27-2020 06-08-2014 Episodic Residual codes; unclassified (20 sources) Needs influenza immunization; Translations: [Encounter for immunization] Onset: 11-21-2022 Resolved: 06-01-2023 Episodic Residual codes; unclassified (20 sources) Patient encounter status; Translations: [Encounter for prophylactic measures, unspecified] Onset: 05-31-2018 Resolved: 05-27-2020 05-27-2020 Episodic Screening and history of mental health and substance abuse codes (20 sources) Tobacco smoking behavior - finding; Translations: [Personal history of nicotine dependence] Onset: 11-20-2022 Episodic Skin and subcutaneous tissue infections (20 sources) Cellulitis; Translations: [Abscess] Onset: 05-24-2018 Resolved: 04-10-2019 05-24-2018 Episodic Unclassified (20 sources) Postmenopausal state; Translations: [Asymptomatic menopausal state] Onset: 05-03-2011 06-08-2014 Episodic Unclassified (1 source) Screening for cervical cancer Unclassified (14 sources) Patient encounter status; Translations: [Preventive measure] Onset: 05-31-2018 Resolved: 05-27-2020 05-31-2018 Results Test Name Value Interpretation Reference Range Facility HbA1c (Bld)on 03-07-2025 Average glucose Estimated from glycated hemoglobin (Bld) [Mass/Vol] 111 mg/dL [facility] Comment on above: eAG: (Estimated aver age glucose) is a calculated value from HgbA1c and is account services representative of the average blood glucose level in the last 2-3 month period. HbA1c (Bld) [Mass fraction] 5.5 % 4.3 - 5.6 % [facility] Comment on above: [place] [employer] sociation guidelines indicate that patients with HgbA1c in the range 5.7-6.4% are at increased risk for development of diabetes, and intervention by lifestyle modification may be beneficial. HgbA1c greater or equal to 6.5% is considered diagnostic of diabetes. [facility] CBC panel Auto (Bld)on 03-06 Erythrocyte distribution width (RBC) [Ratio] 13.2 % 11.5 - 15.0 % [facility] Hematocrit (Bld) [Volume fraction] 38.3 % 36.0 - 46.0 % [facility] Hemoglobin (Bld) [Mass/Vol] 12.2 g/dL 11.5 - 15.5 g/dL [facility] Interpretation and review of laboratory results Abnormal [facility] MCH (RBC) [Entitic mass] 29.3 pg 26.0 - 34.0 pg [facility] MCHC (RBC) [Mass/Vol] 31.9 g/dL 30.5 - 36.0 g/dL [facility] MCV (RBC) [Entitic vol] 91.8 fL 80.0 - 100.0 fL [facility] Platelet mean volume (Bld) [Entitic vol] 9.5 fL 9.0 - 12.7 fL [facility] Platelets (Bld) [#/Vol] 525 10*3/uL High [facility] RBC (Bld) [#/Vol] 4.17 10*6/uL 3.90 - 5.2 0 m/uL [facility] WBC (Bld) [#/Vol] 7.57 10*3/uL [facility] Erythrocyte distribution width (RBC) [Ratio] 13.2 % Normal 11.5-15.0 [facility] Comment on above: Order Comment: Speci men Type: BLOOD SPECIMENOrdering Facility: [facility] Address: [address] [place] [address] Performed By: #### 5 8410-2 ####[facility] LABCLIA [id number] [place] [address] [place]#### [id number] ####[facility] LABCLIA [id number] [address] [place] Hematocrit (Bld) [Volume fraction] 38.3 % Normal 36.0-46.0 [facility] Comment on above: Order Comment: Speci men Type: BLOOD SPECIMENOrdering Facility: [facility] Address: [address] [place] [address] Performed By: #### 5 8410-2 ####[facility] LABCLIA [id number] [address] STATES [facility]#### [id number] ####[facility] LABCLIA [id number] [place] [address] [place] Hemoglobin (Bld) [Mass/Vol] 12.2 g/dL Normal 11.5-15.5 [facility] Comment on above: Order Comment: Speci men Type: BLOOD SPECIMENOrdering Facility: [facility] Address: [address] [place] [address] Performed By: #### 5 8410-2 ####[facility] LABCLIA [id number] [place], [place] [id number] [place] [address] [place]#### [id number] ####[facility] LABCLIA [id number] [place] [address] [place] MCH (RBC) [Entitic mass] 29.3 pg Normal 26.0-34.0 [facility] Comment on above: Order Comment: Speci men Type: BLOOD SPECIMENOrdering Facility: [facility] Address: [address] [place] [address] Performed By: #### 5 8410-2 ####[facility] LABCLIA [id number] [place], [place] [id number] [place] [address]#### [id number] ####[facility] LABCLIA [id number] [address] [address] [place] MCHC (RBC) [Mass/Vol] 31.9 g/dL Normal 30.5-36.0 [facility] Comment on above: Order Comment: Speci men Type: BLOOD SPECIMENOrdering Facility: [facility] Address: [address] [place] [address] Performed By: #### 5 8410-2 ####[facility] LABCLIA [id number] [place], [place] [id number] [place] [address] [place]#### [id number] ####[facility] LABCLIA [id number] [place] [id number] [place] MCV (RBC) [Entitic vol] 91.8 fL Normal 80.0-100.0 [facility] Comment on above: Order Comment: Speci men Type: BLOOD SPECIMENOrdering Facility: [facility] Address: [address] [place] [address] Performed By: #### 5 8410-2 ####[facility] LABCLIA [id number] [place], [place] [id number] [place] [address]#### [id number] ####[facility] LABCLIA [id number] [place] [id number] [place] Platelet mean volume (Bld) [Entitic vol] 9.5 fL Normal 9.0-12.7 [facility] Comment on above: Order Comment: Speci men Type: BLOOD SPECIMENOrdering Facility: [facility] Address: [address] [place] [address] Performed By: #### 5 8410-2 ####[facility] LABCLIA [id number] [place] [place] [address] [place]#### [id number] ####[facility] LABCLIA [id number] [address] [address] [place] Platelets (Bld) [#/Vol] 525 10*3/uL High 150-400 [facility] Comment on above: Order Comment: Speci men Type: BLOOD SPECIMENOrdering Facility: [facility] Address: [address] [place] [address] Performed By: #### 5 8410-2 ####[facility] LABCLIA [id number] [place] [address] [place]#### [id number] ####[facility] LABCLIA [id number] [place] [address] [place] RBC (Bld) [#/Vol] 4.17 10*6/uL Normal 3.90-5.20 [facility] Comment on above: Order Comment: Speci men Type: BLOOD SPECIMENOrdering Facility: [facility] Address: [address] [place] [address] Performed By: #### 5 8410-2 ####[facility] LABCLIA [id number] [place], [place] [id number] [place] [address] [place]#### 26205-8 ####[facility] LABCLIA [id number] [place] [id number] [place] WBC (Bld) [#/Vol] 7.57 10*3/uL Normal 3.70-11.00 [facility] Comment on above: Order Comment: Speci men Type: BLOOD SPECIMENOrdering Facility: [facility] Address: [address] [place] [address] Performed By: #### 5 8410-2 ####[facility] LABCLIA [id number] [place] [address] [place]#### 17961-5 ####[facility] REDD [id number] [address]RA[address]UELLER [address] [address] [facility] CNOVon 03-06-2025 CNOV Office Visit (AGFAMPLE) ZOFIA SWEENEY ([id number]) 1965 F Date Time Provider Department 03/06/25 9:00 AM JENNIFER HERNANDEZ During your visit today, we recorded the following information about you: Temperature Pulse Blood pressure Weight 98.2 degrees 68/minute 118/68 72.1 kg Height 1.53 m Jennifer Hernandez DO 03/29/2025 7:07 AM Signed Subjective HPI Zofia is a 59-year-old female with a history of ulcerative colitis, anxiety, and depression, presenting for evaluation of chronic back pain following a fall in September. Chronic Back Pain: - Onset following a fall in September; tripped over a model airplane in a toy room at a longterm, landing on the right hip and bottom. - Pain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 [address] [place] [address] / REHABILITATION SERVICES INITIAL EVALUATION MR#: [id number] Acct: [id number] Name: ZOFIA SWEENEY Rep #: [id number] : 1965 59 From: Ifeanyi Avalos PT, Cert. T, OCS Referring Dr.: Dr. Marcial Ospina MD Status: REG RCR Insurance: [employer] SELF PAY INSURANCE Patient's Visit Information Visit Information Visit Information: ZOFIA SWEENEY is a 59 year old F referred to Physical Therapy by Dr. Marcial Ospina MD with a diagnosis of LUMBAR RADICULOPATHY ,CERVICALOGENIC LEYVA ,CERVICAL SPONDYLOSIS. Date of Evaluation: 11/28/24 Physical Therapist: Ifeanyi Avalos PT, Cert T, OCS Visit Plan Frequency: 2x /Week Duration: 4 Weeks Plan: PT INTERVENTIONS AQUATIC THERAPY DLS ,POSTURAL EX'S ,CERVICAL ROM ,LUMBAR ROM ,STRENGTHENING BUE/LE AND ACTIVITY MODIFICATION Subjective Subjective: This 59 y/o female presents to physical therapy with cervical and lumbar pain. Patient has had lumbar and neck pain many years. Patient seen pain management recommended PT changed medication muscle relaxer and try Cymbalta. No epidural injection but has h/o epidural injections. Patient had MRI showed stenosis and HNP.Patient had to go to ER due to pain. Patient pain located cervical right shoulder. > left . Aggravating factors standing and lifting. Alleviating heat ,movement. C/O occiput LEYVA then has migraines. Denies nausea/tinnitus. Location symmetrical left > right. with radicular symptoms in legs. Aggravating factors standing ,sitting,bending ,lifting occasional walking.Alleviating factors medication rest ,heat .Bowel/bladder -. C/O tingling/paresthesia in legs. Patient symptoms affects sleeping. 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 Patient condition affects QOL and function/houseworks. Patient goals to decrease pain. Patient VOCATION: [employer] SOCIAL: Pain Bilateral Neck: Pain Intensity (Out of 10): 3 Pain Intensity Range: 10 Bilateral Back: Pain Intensity (Out of 10): 8 Pain Intensity Range: 10 Objective Objective: POSTURE:mild forward posture NEURO: c/o paresthesia/tingling, reflexes L3-4,L4-5 ,L5-S1 1/3 ,C5-6-7 1/3 PALPATION: tender LS ,UT/levator/paraspina ls AROM: BUE WFL CERVICAL ROM: flexion min loss ,extension min loss ,rotation min loss ,lateral flexion min/mod loss MMT: BUE grossly 4/5 ,shoulders 4-/5 LUMBAR ROM: flexion mod loss pain ,extension min loss ,side glides min loss MMT: quads/hams4/5 ,hip flexion 4-/5 ,ankle 4/5 FLXABILITY: hamstrings min tight Special Tests C/S Radiculapathy - Left Upper limb tension test: Negative C/S Radiculapathy - Right Upper limb tension test: Negative C/S Radiculapathy - Left Spurlings: Positive C/S Radiculapathy - Right Spurlings: Positive C/S Radiculapathy - Left Cervical distraction: Negative C/S Radiculapathy - Right Cervical distraction: Negative C/S Radiculapathy - Left Relief test: Negative C/S Radiculapathy - Right Relief test: Negative C/S Radiculapathy - Valsalva: Negative Sharp Jose J: Negative Vertebral Artery Test: Negative Alar Ligament Test: Negative L/S Slump test left side: Negative L/S Slump test right side: Negative L/S Left Straight Leg Raise: Negative L/S Right Straight Leg Raise: Negative Balance/Special Test Scores Oswestry Low Back Score: 31 Goals Goal 1:: Patient to be I with Aquatic therapy Goal Time Frame: 4-6 Weeks Goal 2:: Patient to improve cervical and lumbar ROM for function of recovery to drive and ADL Goal Time Frame: 4-6 Weeks Goal 3:: Patient to demonstrate 40% improvement with less pain and improved function Goal Time Frame: 4-6 Weeks Goal 4:: Patient to improve back oswestry score by 5 points to improve QOL and function Goal Time Frame: 4-6 Weeks Goal 5:: Patient be able to perform ADL;s and housework tasks with min limitations Goal Time Frame: 4-6 Weeks Rehabilitation Potential Physical Therapy Diagnosis: This patient has lumbar pain with MRI showed HNP and stenosis and cervical pain with radiculopathy with pain positioning and motion testing worse with walking/standing with back thus benefit from skilled PT Rehabilitation Potential: Good Anticipated Interventions Patient/Client Instruction: Educate patient on: Condition and Plan of Care For the Purpose of:: To decrease pain, To increase ROM, To improve muscle performance and motor function, To improve ability to perform ADL's, To increase tolerance to activity/condition/po sition, To improve ability of physical actions for home/community/work/l eisure, To improve health of tissue, To decrease soft tissue restriction, To increase flexibility/ROM, To assume or resume ADL's and To prevent re-injury Therapeutic Exercise to Include: Strength training, Body mechanics, Postural training, Flexibilty training, In an a (more content not included)... Normal [facility] Emergency Department Summary on 11-13-2024 Emergency Department Summary [facility] Medical Records Department [address] [place] [address] Emergency Department Summary 11/13/24 MR#: [id number] Acct: [id number] Name: ZOFIA SWEENEY Rep #: [id number] : 1965 59 From: Kelvin Nichols MD PCP: Katie Nicholas ICU SPECIALIST-C Status:REG ER Location: ED HPI History of Present Illness Chief Complaint: Back Narrative Narrative: Patient is a 59-year-old female with history of degenerative disc disease, arthritis, chronic back pain presents to the [facility] apartment for worsening back pain. 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 Patient she felt something in her back, and now she is having severe pain. She denies any bowel or bladder incontinence, denies any weakness to her lower extremities. Patient did ambulate here. [facility] Medical History Cocaine substance abuse Home Medications ???Medication ???Instructions ???Recorded ???Last Taken ???Type oxycodone-acetaminoph en 5 mg-325 1 tab PO Q6H PRN PRN Pain 3 days 11/03/24 Unknown Rx mg tablet #12 TABLETS Allergy/AdvReac Type Severity Reaction Status Date / Time vancomycin Allergy Other Verified 07/30/23 15:57 Social History Smoking Status: Current every day smoker tobacco type: cigarettes ROS ROS ED ROS Narrative Constitutional: Negative for fever, chills, weight loss, weakness Eyes: Negative for vision loss, vision change, double vision ENT: Negative for any sore throat, ear pain, congestion Cardiovascular: Negative for any chest pain, tightness, palpitations Respiratory: Negative for any cough, sputum production, hemoptysis, dyspnea, dyspnea on exertion, orthopnea Gastrointestinal: Negative for any abdominal pain, nausea, vomiting, diarrhea, constipation, blood in stool, blood in vomit : Negative for any urinary frequency, dysuria, retention, blood in urine Muscle skeletal: Negative for any neck pain. Positive for lower back pain Neurological: Negative for any headache, syncope, dizziness Skin: Negative for any rashes, itching, abrasions, lacerations Psychiatric: Negative for any depression, anxiety, stress, suicidal ideation, homicidal ideation Hematologic: Negative for any excessive bruising, easy bleeding EXAM Physical Exam Narrative Exam Narrative: Vital signs reviewed. HEET: Head normocephalic atraumatic, TMs clear bilaterally. Posterior pharynx is clear, moist mucous membranes. Nares clear bilaterally. Neck: Supple with no lymphadenopathy or tenderness. No signs of meningismus. Cardiac: Regular rate and rhythm no murmurs gallops or rubs, equal peripheral pulses bilaterally. Respiratory: Lungs clear to auscultation bilaterally. No chest tenderness. Abdomen: Soft, nontender, nondistended. No abdominal bruit or pulsatile masses. No hepatosplenomegaly Extremities: No peripheral edema, no signs of gross trauma or deformity. Active full range of motion of all extremities. Neuro: Cranial nerves II through XII intact, no focal neurological deficits. Skin: Clean dry and intact with no rash, purpura, petechiae, vesicles or pustules. Backs/flank: No CVA tenderness, no midline spinal tenderness, no deformity. Equal strength bilateral lower extremities. Pain is mostly across the entire lower lumbar spine. No deformity. Psych: Normal mood and affect. No SI, HI or acute psychosis. Const Vital Signs: 11/13/24 14:59 Temperature 96.4 F L Temperature Source Temporal Pulse Rate 81 Respiratory Rate 16 Blood Pressure 151/60 H Blood Pressure Mean 90 Pulse Ox 98 Oxygen Delivery Method Room Air Physical Exam Const Vital Signs: 11/13/24 14:59 Temperature 96.4 F L Temperature Source Temporal Pulse Rate 81 Respiratory Rate 16 Blood Pressure 151/60 H Blood Pressure Mean 90 Pulse Ox 98 Oxygen Delivery Method Room Air [facility] Treatment and Re-Evaluation Narrative: Differential diagnosis includes however is not limited to: Lumbar fracture, acute on chronic pain, degenerative disc disease, muscle strain, compression fracture Patient appears generally well, vital signs are stable, patient is nontoxic-appearing. Presenting to the emerged part for complaints of lower back pain after lifting up a case of pop. Patient will receive 80 mg of IM morphine, as well as oral Zofran. Patient will need to be reevaluated. [facility] Narrative Medical decision making narrative: I have personally performed a face to face assessment of the patient and have reviewed the KANE Note. I performed a substantive portion of the visit including all aspects of the following. My gauthier findings include: History is 59-year-old female history of degene (more content not included)... Normal [facility] CCP IgG Antibodieson 025 CCP IgG Ab. 0 units Normal 0-19 [facility] Comment on above: Result Comment: Nega tive <20 Weak positive 20 - 39 Moderate positive 40 - 59 Strong positive >59 Performed at: [facility] [id number] Site Controller: Phi Germain PhD, Phone: [phone] Performed By: #### L 3100.7870, L500.4050, L101.9900, L4600.0100, L501.9520, L100.0100, L505.7010, L500.4100, L501.9985 ####[facility] [address] [place], [address] CRP, High Sensitivity [id number] on 11-07-2024 CRP, HIGH SENS 7.12 mg/L High 0.00-3.00 [facility] Comment on above: Result Comment: Rela tive Risk for Future Cardiovascular Event Low <1.00 Average 1.00 - 3.00 High >3.00 Performed at: [facility], [place] [id number] Site Controller: Phi Germain PhD, Phone: [phone] Performed By: #### L 3100.7870, L500.4050, L101.9900, L4600.0100, L501.9520, L100.0100, L505.7010, L500.4100, L501.9985 ####[facility] [address] [place], [place], [phone] Absolute neutrophil countOrd ered By: [facility] on 11-05-2024 Neutrophils (Bld) [#/Vol] 3.9 10*3/uL 2.0-7.7 [facility] Albumin to globulin ratioOrd ered By: [facility] on 11-05-2024 Albumin/Globulin [Mass ratio] 1.3 {ratio} 0.9-2.4 [facility] Basophil percentageOrdered B y: [facility] on 11-05-2024 Basophils/100 WBC (Bld) 1.7 % High 0-1 [facility] Bilirubin, totalOrdered By: [facility] on 11-05-2024 Bilirubin [Mass/Vol] 0.30 mg/dL 0.20-1.00 [facility] Comment on above: For patients on eltr ombopag therapy, use of Dimension [place] TBIL is not recommended. Blood urea nitrogen (BUN)/cr eatinine ratioOrdered By: [facility] on 11-05-2024 Urea nitrogen/Creatinine [Mass ratio] 16.6 mg/mg 10-20 [facility] C-reactive protein measureme nt by high sensitivity methodOrdered By: [facility] on 11-05-2024 C-Reactive Protein High Sensitivity 7.12 mg/L High 0.00-3.00 [facility] Comment on above: Relative Risk for Fu ture Cardiovascular Event Low <1.00 Average 1.00 - 3.00 High >3.00Performed at: - [facility] [address] [place], [place] [id number] Director: Phi Germain PhD, Phone: [phone] CBC W/Diff, Automatedon 10 26-2024 Absolute Lymph 1.48 X10 3/uL Normal 0.83-4.51 [facility] Comment on above: Performed By: #### L 3100.7870, L500.4050, L101.9900, L4600.0100, L501.9520, L100.0100, L505.7010, L500.4100, L501.9985 #### [facility] Laboratory [address] [place], [address] Absolute Neut 3.9 X10 3/uL Normal 2.0-7.7 [facility] Comment on above: Performed By: #### L 3100.7870, L500.4050, L101.9900, L4600.0100, L501.9520, L100.0100, L505.7010, L500.4100, L501.9985 #### [facility] [address] [place], [address] Basophils/100 WBC (Bld) 1.7 % High 0-1 [facility] Comment on above: Performed By: #### L 3100.7870, L500.4050, L101.9900, L4600.0100, L501.9520, L100.0100, L505.7010, L500.4100, L501.9985 #### [facility] [address] [place], [address] Eosinophils/100 WBC (Bld) 2.5 % Normal 0-5 [facility] Comment on above: Performed By: #### L 3100.7870, L500.4050, L101.9900, L4600.0100, L501.9520, L100.0100, L505.7010, L500.4100, L501.9985 #### [facility] [address] [place], [place], [phone] ([phone]) Erythrocyte distribution width (RBC) [Ratio] 14.1 % Normal 11.6-14.6 [facility] Comment on above: Performed By: #### L 3100.7870, L500.4050, L101.9900, L4600.0100, L501.9520, L100.0100, L505.7010, L500.4100, L501.9985 #### [facility] [address] [facility] [place], [address] Hematocrit (Bld) [Volume fraction] 33.7 % Low 37-47 [facility] Comment on above: Performed By: #### L 3100.7870, L500.4050, L101.9900, L4600.0100, L501.9520, L100.0100, L505.7010, L500.4100, L501.9985 #### [facility] [address] [facility]. [place], [place], [phone] ([phone]) Hemoglobin (Bld) [Mass/Vol] 10.9 g/dL Low 12.0-15.0 [facility] Comment on above: Performed By: #### L 3100.7870, L500.4050, L101.9900, L4600.0100, L501.9520, L100.0100, L505.7010, L500.4100, L501.9985 #### [facility] [address] [facility] [place], [address] IG% 0.800 Normal 0.0-0.9 [facility] Comment on above: Result Comment: IG% - Immature Granulocytes (promyelocytes, myelocytes and metamyelocytes) > 1% indicates that a LEFT SHIFT is Present. Performed By: #### L 3100.7870, L500.4050, L101.9900, L4600.0100, L501.9520, L100.0100, L505.7010, L500.4100, L501.9985 #### [facility] [address] [facility] [place], [place], [phone] ([phone] Lymphocytes/100 WBC (Bld) 23.3 % Normal 19-41 [facility] Comment on above: Performed By: #### L 3100.7870, L500.4050, L101.9900, L4600.0100, L501.9520, L100.0100, L505.7010, L500.4100, L501.9985 #### [facility] [address] [facility] [place], [address] MCH (RBC) [Entitic mass] 28.9 pg Normal 27.0-32.0 [facility] Comment on above: Performed By: #### L 3100.7870, L500.4050, L101.9900, L4600.0100, L501.9520, L100.0100, L505.7010, L500.4100, L501.9985 #### [facility] [address] [place], [address] MCHC (RBC) [Mass/Vol] 32.3 g/dL Normal 32-36 [facility] Comment on above: Performed By: #### L 3100.7870, L500.4050, L101.9900, L4600.0100, L501.9520, L100.0100, L505.7010, L500.4100, L501.9985 #### [facility] [address] [facility] [place], [address] MCV (RBC) [Entitic vol] 89.4 fL Normal 81-99 [facility] Comment on above: Performed By: #### L 3100.7870, L500.4050, L101.9900, L4600.0100, L501.9520, L100.0100, L505.7010, L500.4100, L501.9985 #### [facility] [address] [facility] [place], [address] Monocytes/100 WBC (Bld) 10.6 % High 0-10 [facility] Comment on above: Performed By: #### L 3100.7870, L500.4050, L101.9900, L4600.0100, L501.9520, L100.0100, L505.7010, L500.4100, L501.9985 #### [facility] [address] [place] [place], [address] Neutrophils/100 WBC (Bld) 61.1 % Normal 47-70 [facility] Comment on above: Performed By: #### L 3100.7870, L500.4050, L101.9900, L4600.0100, L501.9520, L100.0100, L505.7010, L500.4100, L501.9985 #### [facility] [address] [place], [address] Nucleated RBC (Bld) [#/Vol] 0 10*3/uL Normal 0-5 [facility] Comment on above: Performed By: #### L 3100.7870, L500.4050, L101.9900, L4600.0100, L501.9520, L100.0100, L505.7010, L500.4100, L501.9985 #### [facility] [address] [place], [address] Platelet mean volume (Bld) [Entitic vol] 9.1 fL Normal 6.2-12.0 [facility] Comment on above: Performed By: #### L 3100.7870, L500.4050, L101.9900, L4600.0100, L501.9520, L100.0100, L505.7010, L500.4100, L501.9985 #### [facility] [address] [facility] [place], [address] Platelets (Bld) [#/Vol] 413 10*3/uL Normal 150-450 [facility] Comment on above: Performed By: #### L 3100.7870, L500.4050, L101.9900, L4600.0100, L501.9520, L100.0100, L505.7010, L500.4100, L501.9985 #### [facility] [address] [place] [place], [address] (890) RBC (Bld) [#/Vol] 3.77 10*6/uL Low 4.2-5.4 [facility] Comment on above: Performed By: #### L 3100.7870, L500.4050, L101.9900, L4600.0100, L501.9520, L100.0100, L505.7010, L500.4100, L501.9985 #### [facility] [address] [place], [address] RDW SD 46.0 fl High 35.1-43.9 [facility] Comment on above: Performed By: #### L 3100.7870, L500.4050, L101.9900, L4600.0100, L501.9520, L100.0100, L505.7010, L500.4100, L501.9985 #### [facility] [address] [place], [address] WBC (Bld) [#/Vol] 6.4 10*3/uL Normal 4.4-11.0 [facility] Comment on above: Performed By: #### L 3100.7870, L500.4050, L101.9900, L4600.0100, L501.9520, L100.0100, L505.7010, L500.4100, L501.9985 #### [facility] [address] [place], [address] Carbon dioxide measurementOr dered By: Zebulun Beam on 11-05-2024 CO2 [Moles/Vol] 25.0 mmol/L 21.0-32.0 [facility] Chloride measurementOrdered By: Zebulun Beam on 11-05-2024 Chloride [Moles/Vol] 109 mmol/L High 98-107 [facility] Comprehensive Metabolic Prof ilon 11-05-2024 Albumin [Mass/Vol] 3.7 g/dL Normal 3.2-5.0 [facility] Comment on above: Performed By: #### L 3100.7870, L500.4050, L101.9900, L4600.0100, L501.9520, L100.0100, L505.7010, L500.4100, L501.9985 ####[facility] [address] [place], [address] Albumin/Globulin [Mass ratio] 1.3 {ratio} Normal 0.9-2.4 [facility] Comment on above: Performed By: #### L 3100.7870, L500.4050, L101.9900, L4600.0100, L501.9520, L100.0100, L505.7010, L500.4100, L501.9985 ####[facility] [address] [place], [address] ALK P 65 U/L Normal 45-117 [facility] Comment on above: Performed By: #### L 3100.7870, L500.4050, L101.9900, L4600.0100, L501.9520, L100.0100, L505.7010, L500.4100, L501.9985 ####[facility] [address] [place], [address] ALT [Catalytic activity/Vol] 29 U/L Normal 13-56 [facility] Comment on above: Performed By: #### L 3100.7870, L500.4050, L101.9900, L4600.0100, L501.9520, L100.0100, L505.7010, L500.4100, L501.9985 ####[facility] [address] [place], [address] AST [Catalytic activity/Vol] 24 U/L Normal 15-37 [facility] Comment on above: Performed By: #### L 3100.7870, L500.4050, L101.9900, L4600.0100, L501.9520, L100.0100, L505.7010, L500.4100, L501.9985 ####[facility] [address] [place], [address] Bilirubin [Mass/Vol] 0.30 mg/dL Normal 0.20-1.00 [facility] Comment on above: Result Comment: For patients on eltrombopag therapy, use of Dimension [place] TBIL is not recommended. Performed By: #### L 3100.7870, L500.4050, L101.9900, L4600.0100, L501.9520, L100.0100, L505.7010, L500.4100, L501.9985 ####[facility] [address] [place], [place], [phone] BUN/CRE 16.6 RATIO Normal 10-20 [facility] Comment on above: Performed By: #### L 3100.7870, L500.4050, L101.9900, L4600.0100, L501.9520, L100.0100, L505.7010, L500.4100, L501.9985 ####[facility] [address] [place], [place], [phone] CA,Total 9.4 mg/dL Normal 8.5-10.1 [facility] Comment on above: Performed By: #### L 3100.7870, L500.4050, L101.9900, L4600.0100, L501.9520, L100.0100, L505.7010, L500.4100, L501.9985 ####[facility] [address] [place], [address] Chloride [Moles/Vol] 109 mmol/L High 98-107 [facility] Comment on above: Performed By: #### L 3100.7870, L500.4050, L101.9900, L4600.0100, L501.9520, L100.0100, L505.7010, L500.4100, L501.9985 ####[facility] [address] [place], [address] CO2 [Moles/Vol] 25.0 mmol/L Normal 21.0-32.0 [facility] Comment on above: Performed By: #### L 3100.7870, L500.4050, L101.9900, L4600.0100, L501.9520, L100.0100, L505.7010, L500.4100, L501.9985 ####[facility] [address] [place], [place], [phone] Creatinine [Mass/Vol] 0.90 mg/dL Normal 0.55-1.02 [facility] Comment on above: Result Comment: The validity of the calculated GFR GFRAA in patients over 70 years has not been determined. Clinical correlation is essential. Performed By: #### L 3100.7870, L500.4050, L101.9900, L4600.0100, L501.9520, L100.0100, L505.7010, L500.4100, L501.9985 ####[facility] [address] [place], [place], [phone](766) EST GFR - AA 82 mL/min Normal >60 [facility] Comment on above: Result Comment: Afri can Israeli GFR Calc Performed By: #### L 3100.7870, L500.4050, L101.9900, L4600.0100, L501.9520, L100.0100, L505.7010, L500.4100, L501.9985 ####[facility] [address] [place], [address] GAP 5 Normal 5-15 [facility] Comment on above: Performed By: #### L 3100.7870, L500.4050, L101.9900, L4600.0100, L501.9520, L100.0100, L505.7010, L500.4100, L501.9985 ####[facility] [address] [place], [place], [phone] GFR/1.73 sq M.predicted among non-blacks MDRD (S/P/Bld) [Vol rate/Area] 67 mL/min/{1.73_m2} Normal >60 [facility] Comment on above: Result Comment: Non- GFR Calc Performed By: #### L 3100.7870, L500.4050, L101.9900, L4600.0100, L501.9520, L100.0100, L505.7010, L500.4100, L501.9985 ####[facility] [address] [place], [place], [phone] Globulin (S) [Mass/Vol] 2.8 g/dL Normal 2.2-4.2 [facility] Comment on above: Performed By: #### L 3100.7870, L500.4050, L101.9900, L4600.0100, L501.9520, L100.0100, L505.7010, L500.4100, L501.9985 ####[facility] [address] [place], [place], [phone] Glucose [Mass/Vol] 110 mg/dL High 74-106 [facility] Comment on above: Result Comment: Fast ing Glucose result from 100 to 125 mg/dL suggests IMPAIRED HOMEOSTASIS per A.D.A. criteria. Performed By: #### L 3100.7870, L500.4050, L101.9900, L4600.0100, L501.9520, L100.0100, L505.7010, L500.4100, L501.9985 ####[facility] [address] [place], [address] Potassium [Moles/Vol] 4.2 mmol/L Normal 3.5-5.1 [facility] Comment on above: Performed By: #### L 3100.7870, L500.4050, L101.9900, L4600.0100, L501.9520, L100.0100, L505.7010, L500.4100, L501.9985 ####[facility] [address] [place], [phone] Sodium [Moles/Vol] 138 mmol/L Normal 136-145 [facility] Comment on above: Performed By: #### L 3100.7870, L500.4050, L101.9900, L4600.0100, L501.9520, L100.0100, L505.7010, L500.4100, L501.9985 ####[facility] [address] [place], [address] T PROT 6.5 g/dL Normal 6.4-8.2 [facility] Comment on above: Performed By: #### L 3100.7870, L500.4050, L101.9900, L4600.0100, L501.9520, L100.0100, L505.7010, L500.4100, L501.9985 ####[facility] [address] [place], [place], [phone] Urea nitrogen [Mass/Vol] 15 mg/dL Normal 7-18 [facility] Comment on above: Performed By: #### L 3100.7870, L500.4050, L101.9900, L4600.0100, L501.9520, L100.0100, L505.7010, L500.4100, L501.9985 ####[facility] [address] [place], [address] Cyclic citrullinated peptide IgG QnOrdered By: Katie Nicholas on 01-15-2025 Cyclic Citrullinated Peptide IgG Ab 0 units 0-19 [facility] Comment on above: Negative <20 Weak po sitive 20 - 39 Moderate positive 40 - 59 Strong positive >59Performed at: [facility] [id number] [place], [place] [id number] Director: Phi Germain PhD, Phone: [phone] Eosinophil percentageOrdered By: Asian Beam on 11-05-2024 Eosinophils/100 WBC (Bld) 2.5 % 0-5 [facility] Erythrocyte Sed Rateon 11-05 SED RATE 3 mm/hr Normal 0-30 [facility] Comment on above: Performed By: #### L 3100.7870, L500.4050, L101.9900, L4600.0100, L501.9520, L100.0100, L505.7010, L500.4100, L501.9985 #### [facility] Laboratory [facility] [facility] [place], [place], [phone] Erythrocyte distribution wid th ratioOrdered By: Asian Beam on 11-05-2024 Erythrocyte distribution width (RBC) [Ratio] 14.1 % 11.6-14.6 [facility] Erythrocyte distribution wid th standard deviationOrdered By: srini Beam on 11-05-2024 Erythrocyte distribution width (RBC) [Entitic vol] 46.0 fL High 35.1-43.9 [facility] Erythrocyte sedimentation ra teOrdered By: Asian Beam on 11-05-2024 ESR (Bld) [Velocity] 3 mm/h 0-30 [facility] Estimated glomerular filtrat ion rate (GFR) AmericanOrdered By: Rickeylun Beam on 11-05-2024 Estimated GFR (MDRD) Amer 82 mL/min >60 [facility] Comment on above: GFR Calc Glomerular filtration rate ( GFR) estimationOrdered By: Katie Nicholas on 11-05-2024 Estimated GFR (MDRD) Non-Af Amer 67 mL/min >60 [facility] Comment on above: Non- GFR Calc Glucose measurementOrdered B y: Katie Nicholas on 11-05-2024 Glucose [Mass/Vol] 110 mg/dL High 74-106 [facility] Comment on above: Fasting Glucose resu lt from 100 to 125 mg/dL suggests IMPAIRED HOMEOSTASIS per A.D.A. criteria. Hematocrit Auto (Bld) [Volum e fraction]Ordered By: Katie Nicholas on 11-05-2024 Hematocrit (Bld) [Volume fraction] 33.7 % Low 37-47 [facility] Hemoglobin A1con 11-05-2024 HbA1c (Bld) [Mass fraction] 5.7 % High 3.8-5.6 [facility] Comment on above: Result Comment: Norm al < 5.7 % Prediabetic 5.7 - 6.4 % Diabetic >or= 6.5 % Please note range changes. Performed By: #### L 3100.7870, L500.4050, L101.9900, L4600.0100, L501.9520, L100.0100, L505.7010, L500.4100, L501.9985 ####[facility] [address] [place], [address] Hemoglobin A1c percentageOrd ered By: Katie Nicholas on 11-05-2024 HbA1c (Bld) [Mass fraction] 5.7 % High 3.8-5.6 [facility] Comment on above: Normal < 5.7 % Predi abetic 5.7 - 6.4 % Diabetic >or= 6.5 % Please note range changes. Hemoglobin measurementOrdere d By: Katie Nicholas on 11-05-2024 Hemoglobin (Bld) [Mass/Vol] 10.9 g/dL Low 12.0-15.0 [facility] High density lipoprotein (HD L) measurementOrdered By: Katie Nicholas on 11-05-2024 Cholesterol in HDL [Mass/Vol] 74 mg/dL >40 [facility] Comment on above: The drugs N-Acetylcy steine and Metamizole may falsely depress this assay. Reference Range HDL <40 mg/dL Low HDL Cholesterol HDL >or= 60 mg/dL High HDL Cholesterol Immature granulocytes/100 WB C Auto (Bld)Ordered By: Katie Nicholas on 11-05-2024 Immature granulocytes/100 WBC (Bld) 0.800 % 0.0-0.9 [facility] Comment on above: IG% - Immature Granu locytes (promyelocytes, myelocytes and metamyelocytes) > 1% indicates that a LEFT SHIFT is Present. Laboratory - Chemistry and C hemistry - challengeOrdered By: Katie Beam on 11-05-2024 AST [Catalytic activity/Vol] 24 U/L 15-37 [facility] Lipid Profileon 11-05-2024 Cholesterol [Mass/Vol] 190 mg/dL Normal 200 [facility] Comment on above: Result Comment: <200 mg/dL Desirable 200-240 mg/dL Borderline >240 mg/dL High Risk Performed By: #### L 3100.7870, L500.4050, L101.9900, L4600.0100, L501.9520, L100.0100, L505.7010, L500.4100, L501.9985 ####[facility] [address] [facility] [place], [address] Cholesterol in HDL [Mass/Vol] 74 mg/dL Normal [facility] Comment on above: Result Comment: The drugs N-Acetylcysteine and Metamizole may falsely depress this assay. Reference Range HDL <40 mg/dL Low HDL Cholesterol HDL >or= 60 mg/dL High HDL Cholesterol Performed By: #### L 3100.7870, L500.4050, L101.9900, L4600.0100, L501.9520, L100.0100, L505.7010, L500.4100, L501.9985 ####[facility] [address] [place], [address] Cholesterol in LDL [Mass/Vol] 103 mg/dL Normal 0-130 [facility] Comment on above: Performed By: #### L 3100.7870, L500.4050, L101.9900, L4600.0100, L501.9520, L100.0100, L505.7010, L500.4100, L501.9985 ####[facility] [address] [place], [place], [phone] Cholesterol in VLDL [Mass/Vol] 13 mg/dL Normal 5-40 [facility] Comment on above: Performed By: #### L 3100.7870, L500.4050, L101.9900, L4600.0100, L501.9520, L100.0100, L505.7010, L500.4100, L501.9985 ####[facility] [address] [place], [address] Triglyceride [Mass/Vol] 63 mg/dL Normal [facility] Comment on above: Result Comment: The drugs N-Acetylcysteine and Metamizole may falsely depress this assay. Serum Triglycerides Reference Interval Normal <150 mg/dL Borderline high 150 - 199 mg/dL High 200 - 499 mg/dL Very High > or = 500 mg/dL Performed By: #### L 3100.7870, L500.4050, L101.9900, L4600.0100, L501.9520, L100.0100, L505.7010, L500.4100, L501.9985 ####[facility] [address] [place], [address] Low density lipoprotein (LDL ) cholesterol measurementOrdered By: Rickeylun Beam on 11-05-2024 Cholesterol in LDL [Mass/Vol] 103 mg/dL 0-130 [facility] Lymphocytes Auto (Unsp spec) [#/Vol]Ordered By: Zebulun Beam on 11-05-2024 Lymphocytes (Bld) [#/Vol] 1.48 10*3/uL 0.83-4.51 [facility] Lymphocytes/100 WBC Auto (Un sp spec)Ordered By: Zebulun Beam on 11-05-2024 Lymphocytes/100 WBC (Bld) 23.3 % 19-41 [facility] MCV (mean corpuscular volume ) determinationOrdered By: Zebulun Beam on 11-05-2024 MCV (RBC) [Entitic vol] 89.4 fL 81-99 [facility] Mean corpuscular hemoglobin (MCH) determinationOrdered By: Zebulun Beam on 11-05-2024 MCH (RBC) [Entitic mass] 28.9 pg 27.0-32.0 [facility] Mean corpuscular hemoglobin concentration (MCHC) determinationOrdered By: Zebulun Beam on 11-05-2024 MCHC (RBC) [Mass/Vol] 32.3 g/dL 32-36 [facility] Mean platelet volume determi nationOrdered By: Zebulun Beam on 11-05-2024 Platelet mean volume (Bld) [Entitic vol] 9.1 fL 6.2-12.0 [facility] Monocyte percentageOrdered B y: Zebulun Beam on 11-05-2024 Monocytes/100 WBC (Bld) 10.6 % High 0-10 [facility] Neutrophil percentageOrdered By: Zebulun Beam on 11-05-2024 Neutrophils/100 WBC (Bld) 61.1 % 47-70 [facility] Nucleated red blood cell per centageOrdered By: Zebulun Beam on 11-05-2024 Nucleated RBC/100 WBC (Bld) [Ratio] 0 % 0-5 [facility] Platelet countOrdered By: Efrem chavarriaun Beam on 11-05-2024 Platelets (Bld) [#/Vol] 413 10*3/uL 150-450 [facility] Potassium measurementOrdered By: Zebulun Beam on 11-05-2024 Potassium [Moles/Vol] 4.2 mmol/L 3.5-5.1 [facility] RBC Auto (Bld) [#/Vol]Ordere d By: Zeashlynlun Beam on 11-05-2024 RBC (Bld) [#/Vol] 3.77 10*6/uL Low 4.2-5.4 [facility] Rheumatoid Factoron 11-05-19 25 RHEUMATOID FAC < 10.0 Normal <15 [facility] Comment on above: Performed By: #### L 3100.7870, L500.4050, L101.9900, L4600.0100, L501.9520, L100.0100, L505.7010, L500.4100, L501.9985 ####[facility] [address] [place], [address] Rheumatoid factor measuremen tOrdered By: Katie Nicholas on 11-05-2024 Rheumatoid Factor < 10.0 IU/mL <15 [facility] Serum anion gap measurementO rdered By: Katie Nicholas on 11-05-2024 Anion gap [Moles/Vol] 5 mmol/L 5-15 [facility] Serum globulin measurementOr dered By: Katie Nicholas on 11-05-2024 Globulin (S) [Mass/Vol] 2.8 g/dL 2.2-4.2 [facility] Serum or plasma alanine cain otransferase (ALT) measurementOrdered By: Katie Nicholas on 11-05-2024 ALT [Catalytic activity/Vol] 29 U/L 13-56 [facility] Serum or plasma albumin ebony urement (mass/volume)Ordered By: Katie Nicholas on 11-05-2024 Albumin [Mass/Vol] 3.7 g/dL 3.2-5.0 [facility] Serum or plasma alkaline marcela sphatase measurementOrdered By: Katie Nicholas on 11-05-2024 ALP [Catalytic activity/Vol] 65 U/L 45-117 [facility] Serum or plasma calcium ebony urement (mass/volume)Ordered By: Katie Nicholas on 11-05-2024 Calcium [Mass/Vol] 9.4 mg/dL 8.5-10.1 [facility] Serum or plasma cholesterol measurement (mass/volume)Ordered By: Katie Nicholas on 11-05-2024 Cholesterol [Mass/Vol] 190 mg/dL <200 [facility] Comment on above: <200 mg/dL Desirable 200-240 mg/dL Borderline >240 mg/dL High Risk Serum or plasma creatinine m easurement (mass/volume)Ordered By: Katie Nicholas on 11-05-2024 Creatinine [Mass/Vol] 0.90 mg/dL 0.55-1.02 [facility] Comment on above: The validity of the calculated GFR & GFRAA in patients over 70 years has not been determined. Clinical correlation is essential. Serum or plasma urea nitroge n measurement (mass/volume)Ordered By: Katie Nicholas on 11-05-2024 Urea nitrogen [Mass/Vol] 15 mg/dL 7-18 [facility] Sodium levelOrdered By: Rickey Nicholas on 11-05-2024 Sodium [Moles/Vol] 138 mmol/L 136-145 [facility] TSH QnOrdered By: Katie Be am on 11-05-2024 Thyroid Stimulating Hormone (TSH) 0.337 uIU/mL Low 0.358-3.740 [facility] Thyroid Stim Hormone (TSH)on 11-05-2024 TSH 0.337 uIU/mL Low 0.358-3.740 [facility] Comment on above: Performed By: #### L 3100.7870, L500.4050, L101.9900, L4600.0100, L501.9520, L100.0100, L505.7010, L500.4100, L501.9985 ####[facility] [address] [place], [place], [address] Total proteinOrdered By: Rashaad Nicholas on 11-05-2024 Protein [Mass/Vol] 6.5 g/dL 6.4-8.2 [facility] Triglycerides measurementOrd ered By: Katie Nicholas on 11-05-2024 Triglyceride [Mass/Vol] 63 mg/dL <199 [facility] Comment on above: The drugs N-Acetylcy steine and Metamizole may falsely depress this assay.Serum Triglycerides Reference Interval Normal <150 mg/dL Borderline high 150 - 199 mg/dL High 200 - 499 mg/dL Very High > or = 500 mg/dL Very low density lipoprotein (VLDL) cholesterol measurementOrdered By: Katie Nicholas on 11-05-2024 VLDL Cholesterol 13 mg/dL 5-40 [facility] White blood cell (WBC) count Ordered By: Katie Nicholas on 11-05-2024 WBC (Bld) [#/Vol] 6.4 10*3/uL 4.4-11.0 [facility] 12 Lead EKGon 11-03-2024 12 Lead EKG [facility] Cardiovascular Services [address] [place] [address] 12 Lead EKG 11/03/24 1514 MR#: [id number] Acct: [id number] Name: ZOFIA SWEENEY Rep #: [id number] : 1965 59 From: Moi Ha MD Attending Dr: Status: DEP ER Ordering Dr: Terry Phillip DO Date: 11/03/24 Location: ED Sex: F C Admitted: Test Reason : Blood Pressure : */* mmHG Vent. Rate : 79 BPM Atrial Rate : 79 BPM P-R Int : 140 ms QRS Dur : 76 ms QT Int : 394 ms P-R-T Axes : 43 29 31 degrees QTcB Int : 451 ms Normal sinus rhythm Normal ECG Confirmed by MOI HA MD ([id number]), publication editor ISATU WILSON ([id number]) on 11/04/2024 9:25:16 AM Referred By: Confirmed By: MOI HA MD 11/04/24924 Date Moi Ha MD CC: Dr. Terry Phillip DO; [facility] ICU SPECIALIST-C Beam Signed Normal [facility] Absolute neutrophil countOrd ered By: Terry Phillip on 11-03-2024 Neutrophils (Bld) [#/Vol] 6.8 10*3/uL 2.0-7.7 [facility] Basic Metabolic Profile (BMP )on 11-03-2024 BUN/CRE 16.9 RATIO Normal 10-20 [facility] Comment on above: Performed By: #### L 100.0100, L300.4310, L500.2500, L300.3900 #### [facility] Laboratory [address] [place], [address] CA,Total 9.3 mg/dL Normal 8.5-10.1 [facility] Comment on above: Performed By: #### L 100.0100, L300.4310, L500.2500, L300.3900 #### [facility] [address] [place], [address] Chloride [Moles/Vol] 110 mmol/L High 98-107 [facility] Comment on above: Performed By: #### L 100.0100, L300.4310, L500.2500, L300.3900 #### [facility] [address] [place], [address] CO2 [Moles/Vol] 24.0 mmol/L Normal 21.0-32.0 [facility] Comment on above: Performed By: #### L 100.0100, L300.4310, L500.2500, L300.3900 #### [facility] [address] [place], [address] Creatinine [Mass/Vol] 0.94 mg/dL Normal 0.55-1.02 [facility] Comment on above: Result Comment: The validity of the calculated GFR GFRAA in patients over 70 years has not been determined. Clinical correlation is essential. Performed By: #### L 100.0100, L300.4310, L500.2500, L300.3900 #### [facility] [address] [place], [address] ECRCL 55.89 ml/min Normal [facility] Comment on above: Performed By: #### L 100.0100, L300.4310, L500.2500, L300.3900 #### [facility] [address] [place], [address] EST GFR - AA 77 mL/min Normal >60 [facility] Comment on above: Result Comment: Afri can Israeli GFR Calc Performed By: #### L 100.0100, L300.4310, L500.2500, L300.3900 #### [facility] [address] [place], [address] GAP 6 Normal 5-15 [facility] Comment on above: Performed By: #### L 100.0100, L300.4310, L500.2500, L300.3900 #### [facility] [address] [place], [address] GFR/1.73 sq M.predicted among non-blacks MDRD (S/P/Bld) [Vol rate/Area] 64 mL/min/{1.73_m2} Normal >60 [facility] Comment on above: Result Comment: Non- GFR Calc Performed By: #### L 100.0100, L300.4310, L500.2500, L300.3900 #### [facility] [address] [place], [address] Glucose [Mass/Vol] 106 mg/dL Normal 74-106 [facility] Comment on above: Result Comment: Fast ing Glucose result from 100 to 125 mg/dL suggests IMPAIRED HOMEOSTASIS per A.D.A. criteria. Performed By: #### L 100.0100, L300.4310, L500.2500, L300.3900 #### [facility] [address] [place], [address] Potassium [Moles/Vol] 3.6 mmol/L Normal 3.5-5.1 [facility] Comment on above: Performed By: #### L 100.0100, L300.4310, L500.2500, L300.3900 #### [facility] [address] [place], [address] Sodium [Moles/Vol] 140 mmol/L Normal 136-145 [facility] Comment on above: Performed By: #### L 100.0100, L300.4310, L500.2500, L300.3900 #### [facility] [address] [place], [address] Urea nitrogen [Mass/Vol] 16 mg/dL Normal 7-18 [facility] Comment on above: Performed By: #### L 100.0100, L300.4310, L500.2500, L300.3900 #### [facility] [address] [place], [address] Basophil percentageOrdered B y: Terry Phillip on 11-03-2024 Basophils/100 WBC (Bld) 1.1 % High 0-1 [facility] Blood urea nitrogen (BUN)/cr eatinine ratioOrdered By: Terry Phillip on 11-03-2024 Urea nitrogen/Creatinine [Mass ratio] 16.9 mg/mg 10-20 [facility] Brain/Head without Contrasto n 11-03-2024 Brain/Head without Contrast [facility] Imaging Services [address] [place] [address] Brain/Head without Contrast MR#: [id number] Acct: [id number] Name: ZOFIA SWEENEY Rep #: [id number] : 1965 F 59 From: Toñito santacruz MD PCP: Care Physician,No Primary Status: PRE ER Study: Brain/Head without Contrast Date of Exam: 10/22 01/13 Exam# [id number] Ordering Dr: Terry Phillip DO [id number] STUDY: CT BRAIN WITHOUT CONTRAST REASON FOR EXAM: Female, 59 years old. headache RADIATION DOSAGE (If Supplied By Facility): CTDIvol = ( 47.06 ) mGy, DLP = ( 837.39 ) mGycm TECHNIQUE: Transaxial CT imaging of the brain was performed without administration of intravenous contrast material. Individualized dose optimization techniques were used for this CT. COMPARISON: No relevant priors. FINDINGS: Normal soft tissue structures. Normal calvarium. Normal size ventricles and extra-axial spaces for the patient''s age. Normal white matter tracts of the cerebral hemispheres. Normal basal ganglia and thalami. Normal brainstem. Normal cerebellum. There is no intracranial hemorrhage. There are no findings of an acute ischemic infarction. Normal visualized paranasal sinuses. CT/Brain/Head without Contrast IMPRESSION: Normal unenhanced CT scan of the brain. Electronically Signed: Toñito Cain MD at 15:42 EST , CC: Dr. 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 Normal [facility] CBC W/Diff, Automatedon 10-22 Absolute Lymph 2.00 X10 3/uL Normal 0.83-4.51 [facility] Comment on above: Performed By: #### L 100.0100, L300.4310, L500.2500, L300.3900 #### [facility] [address] [place], [address] Absolute Neut 6.8 X10 3/uL Normal 2.0-7.7 [facility] Comment on above: Performed By: #### L 100.0100, L300.4310, L500.2500, L300.3900 #### [facility] [address] [place], [address] Basophils/100 WBC (Bld) 1.1 % High 0-1 [facility] Comment on above: Performed By: #### L 100.0100, L300.4310, L500.2500, L300.3900 #### [facility] [address] [place], [address] Eosinophils/100 WBC (Bld) 1.2 % Normal 0-5 [facility] Comment on above: Performed By: #### L 100.0100, L300.4310, L500.2500, L300.3900 #### [facility] [address] [place], [address] Erythrocyte distribution width (RBC) [Ratio] 14.2 % Normal 11.6-14.6 [facility] Comment on above: Performed By: #### L 100.0100, L300.4310, L500.2500, L300.3900 #### [facility] [address] [place], [address] Hematocrit (Bld) [Volume fraction] 36.4 % Low 37-47 [facility] Comment on above: Performed By: #### L 100.0100, L300.4310, L500.2500, L300.3900 #### [facility] [address] [place], [address] Hemoglobin (Bld) [Mass/Vol] 12.1 g/dL Normal 12.0-15.0 [facility] Comment on above: Performed By: #### L 100.0100, L300.4310, L500.2500, L300.3900 #### [facility] [address] [place], [address] IG% 1.100 High 0.0-0.9 [facility] Comment on above: Result Comment: IG% - Immature Granulocytes (promyelocytes, myelocytes and metamyelocytes) > 1% indicates that a LEFT SHIFT is Present. Performed By: #### L 100.0100, L300.4310, L500.2500, L300.3900 #### [facility] [address] [place], [address] Lymphocytes/100 WBC (Bld) 19.9 % Normal 19-41 [facility] Comment on above: Performed By: #### L 100.0100, L300.4310, L500.2500, L300.3900 #### [facility] [address] [place], [address] MCH (RBC) [Entitic mass] 29.3 pg Normal 27.0-32.0 [facility] Comment on above: Performed By: #### L 100.0100, L300.4310, L500.2500, L300.3900 #### [facility] [address] [place], [address] MCHC (RBC) [Mass/Vol] 33.2 g/dL Normal 32-36 [facility] Comment on above: Performed By: #### L 100.0100, L300.4310, L500.2500, L300.3900 #### [facility] [address] [place], [address] MCV (RBC) [Entitic vol] 88.1 fL Normal 81-99 [facility] Comment on above: Performed By: #### L 100.0100, L300.4310, L500.2500, L300.3900 #### [facility] [address] [place], [address] Monocytes/100 WBC (Bld) 9.3 % Normal 0-10 [facility] Comment on above: Performed By: #### L 100.0100, L300.4310, L500.2500, L300.3900 #### [facility] [address] [place], [address] Neutrophils/100 WBC (Bld) 67.4 % Normal 47-70 [facility] Comment on above: Performed By: #### L 100.0100, L300.4310, L500.2500, L300.3900 #### [facility] [address] [place], [address] Nucleated RBC (Bld) [#/Vol] 0 10*3/uL Normal 0-5 [facility] Comment on above: Performed By: #### L 100.0100, L300.4310, L500.2500, L300.3900 #### [facility] [address] [place], [address] Platelet mean volume (Bld) [Entitic vol] 9.4 fL Normal 6.2-12.0 [facility] Comment on above: Performed By: #### L 100.0100, L300.4310, L500.2500, L300.3900 #### [facility] [address] [place], [address] Platelets (Bld) [#/Vol] 474 10*3/uL High 150-450 [facility] Comment on above: Performed By: #### L 100.0100, L300.4310, L500.2500, L300.3900 #### [facility] [address] [place], [address] RBC (Bld) [#/Vol] 4.13 10*6/uL Low 4.2-5.4 [facility] Comment on above: Performed By: #### L 100.0100, L300.4310, L500.2500, L300.3900 #### [facility] [address] [place], [address] RDW SD 45.6 fl High 35.1-43.9 [facility] Comment on above: Performed By: #### L 100.0100, L300.4310, L500.2500, L300.3900 #### [facility] [address] [place], [address] WBC (Bld) [#/Vol] 10.1 10*3/uL Normal 4.4-11.0 [facility] Comment on above: Performed By: #### L 100.0100, L300.4310, L500.2500, L300.3900 #### [facility] [address] [place], [address] Carbon dioxide measurementOr dered By: Terry Phillip on 11-03-2024 CO2 [Moles/Vol] 24.0 mmol/L 21.0-32.0 [facility] Chloride measurementOrdered By: Terry Phillip on 11-03-2024 Chloride [Moles/Vol] 110 mmol/L High 98-107 [facility] Emergency Department Summary on 11-03-2024 Emergency Department Summary [facility] Medical Records Department [address] [place] [address] Emergency Department Summary 11/03/24 MR#: [id number] Acct: [id number] Name: ZOFIA SWEENEY Rep #: [id number] : 1965 59 From: Terry Cottrell PCP: Katie Nicholas ICU SPECIALIST-C Status:DEP ER Location: ED HPI History of Present Illness Chief Complaint: Neuro S/Sx Informant: patient Narrative Narrative: Patient presents here for evaluation worsening back pain and leg weakness. She is history of sciatica on the left side. She reports history of stroke years ago leading to mild left leg weakness. She has been following more for the last 6 months. She has had a history of her sciatica pain manage in [place] she states she seen pain management years ago with injections. However noticing recurrent symptoms in the last 2 weeks. She had a fall this past Sunday with worsening leg weakness and now incontinence of stools. She denies any urine retention or any urine symptoms. She said pain radiates down left leg to her great toe. She does not walk with any assistance. She is currently staying at a longterm for the last 3 months. History of ulcerative colitis not on any medications. Presented with blood pressure 220, she states recent headaches. Denies any chest or abdominal pain. Denies nausea or vomiting. She states she used to be on blood pressure medicines years ago however is able to get off them. She currently does not take any medications states only allergies to vancomycin. She reported intermittent blurry vision right eye for the last 2 weeks. 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 Prior similar symptoms: Yes and With Prior Back Pain [facility] Medical History Cocaine substance abuse Home Medications ???Medication ???Instructions ???Recorded ???Last Taken ???Type oxycodone-acetaminoph en 5 mg-325 1 tab PO Q6H PRN PRN Pain 3 days 11/03/24 Unknown Rx mg tablet #12 TABLETS Allergy/AdvReac Type Severity Reaction Status Date / Time vancomycin Allergy Other Verified 07/30/23 15:57 Social History Smoking Status: Former smoker ROS ROS ED Constitutional Constitutional ED: Denies chills, fever(s) or sweats Eyes Eyes: Reports blurry vision ENT ENT ED: Denies sore throat Cardiovascular Cardiovascular: Denies chest pain, leg edema, palpitations or racing heartbeat Respiratory/Chest Respiratory/Chest: Denies cough, dyspnea or dyspnea on exertion Gastrointestinal Gastrointestinal: Reports other Details: Incontinence of stools ; Denies abdominal pain, diarrhea, nausea or vomiting Genitourinary Genitourinary ED: Denies dysuria, hematuria or urinary frequency Musculoskeletal Musculoskeletal: Reports back pain; Denies extremity pain or neck pain Integumentary Denies rash or wounds Neurologic Neurologic: Reports headache(s), paresthesias and weakness EXAM Physical Exam Const Vital Signs: 11/03/24 14:21 11/03/24 16:00 11/03/24 17:00 Temperature 97.4 F L Temperature Source Temporal Pulse Rate 86 69 72 Respiratory Rate 20 H 16 20 H Blood Pressure 220/204 H 147/80 H 136/81 H Blood Pressure Mean 209 102 99 Pulse Ox 97 98 99 Oxygen Delivery Method Room Air Room Air 11/03/24 17:41 Temperature 98.0 F Temperature Source Pulse Rate 65 Respiratory Rate 16 Blood Pressure 137/83 H Blood Pressure Mean 101 Pulse Ox 97 Oxygen Delivery Method Positive well nourished and well developed General Appearance ED: well developed and NAD HEENT Reports moist mucous membranes normocephalic and atraumatic Eyes General Eye ED: Yes normal appearance of both eyes and other Other Details: Right eye: Normal female counting all 4 quadrants. Left eye he sees shadows and light. Neck full ROM Neck Narrative: No meningismus. Chest Wall Chest: Negative for tenderness Resp normal respiratory effort and normal air movement Effort and Inspection: symmetric chest movement; Negative for respiratory distress Cardio regular rate, regular rhythm and no murmurs Peripheral Pulses: pulses 2+ throughout GI normal to inspection, nondistended, normoactive bowel sounds and non-tender Palpation: Negative for guarding or rebound tenderness present Back/Spine Back/Spine Narrative: Tender palpation lower lumbar and left paralumbar. Straight leg test was negative. Extremity normal to inspection General Extremety ED: Negative for edema or tenderness General Extremity: Negative for edema Neuro oriented x3 and no sensory deficits noted Neuro Narrative: Mild weakness left hip flexor 4 out of 5 compared to right hip flexor. Sensorium / Orientation: awake and alert Skin no rashes or lesions noted and no (more content not included)... Normal [facility] Eosinophil percentageOrdered By: Terry Phillip on 11-03-2024 Eosinophils/100 WBC (Bld) 1.2 % 0-5 [facility] Erythrocyte distribution wid th ratioOrdered By: Terry Phillip on 11-03-2024 Erythrocyte distribution width (RBC) [Ratio] 14.2 % 11.6-14.6 [facility] Erythrocyte distribution wid th standard deviationOrdered By: Terry Phillip on 11-03-2024 Erythrocyte distribution width (RBC) [Entitic vol] 45.6 fL High 35.1-43.9 [facility] Estimated glomerular filtrat ion rate (GFR) AmericanOrdered By: Terry Phillip on 11-03-2024 Estimated GFR (MDRD) Amer 77 mL/min >60 [facility] Comment on above: GFR Calc Estimation of creatinine ana maria aranceOrdered By: Terry Phillip on 11-03-2024 Estimated Creatinine Clearance Calc 55.89 ml/min [facility] Glomerular filtration rate ( GFR) estimationOrdered By: Terry Phillip on 11-03-2024 Estimated GFR (MDRD) Non-Af Amer 64 mL/min >60 [facility] Comment on above: Non- GFR Calc Glucose measurementOrdered B y: Terry Phillip on 11-03-2024 Glucose [Mass/Vol] 106 mg/dL 74-106 [facility] Comment on above: Fasting Glucose resu lt from 100 to 125 mg/dL suggests IMPAIRED HOMEOSTASIS per A.D.A. criteria. Hematocrit Auto (Bld) [Volum e fraction]Ordered By: Terry Phillip on 11-03-2024 Hematocrit (Bld) [Volume fraction] 36.4 % Low 37-47 [facility] Hemoglobin measurementOrdere d By: Terry Phillip on 11-03-2024 Hemoglobin (Bld) [Mass/Vol] 12.1 g/dL 12.0-15.0 [facility] Immature granulocytes/100 WB C Auto (Bld)Ordered By: Terry Phillip on 11-03-2024 Immature granulocytes/100 WBC (Bld) 1.100 % High 0.0-0.9 [facility] Comment on above: IG% - Immature Granu locytes (promyelocytes, myelocytes and metamyelocytes) > 1% indicates that a LEFT SHIFT is Present. International normalized rat io (INR) calculationOrdered By: Terry Phillip on 11-03-2024 INR Coag (Bld) [Relative time] 0.9 {INR} [facility] Lymphocytes Auto (Unsp spec) [#/Vol]Ordered By: Terry Phillip on 11-03-2024 Lymphocytes (Bld) [#/Vol] 2.00 10*3/uL 0.83-4.51 [facility] Lymphocytes/100 WBC Auto (Un sp spec)Ordered By: Terry Phillip on 11-03-2024 Lymphocytes/100 WBC (Bld) 19.9 % 19-41 [facility] MCV (mean corpuscular volume ) determinationOrdered By: Terry Phillip on 11-03-2024 MCV (RBC) [Entitic vol] 88.1 fL 81-99 [facility] Mean corpuscular hemoglobin (MCH) determinationOrdered By: Terry Phillip on 11-03-2024 MCH (RBC) [Entitic mass] 29.3 pg 27.0-32.0 [facility] Mean corpuscular hemoglobin concentration (MCHC) determinationOrdered By: Terry Phillip on 11-03-2024 MCHC (RBC) [Mass/Vol] 33.2 g/dL 32-36 [facility] Mean platelet volume determi nationOrdered By: Terry Phillip on 11-03-2024 Platelet mean volume (Bld) [Entitic vol] 9.4 fL 6.2-12.0 [facility] Monocyte percentageOrdered B y: Terry Phillip on 11-03-2024 Monocytes/100 WBC (Bld) 9.3 % 0-10 [facility] Neutrophil percentageOrdered By: Terry Phillip on 11-03-2024 Neutrophils/100 WBC (Bld) 67.4 % 47-70 [facility] Nucleated red blood cell per centageOrdered By: Terry Phillip on 11-03-2024 Nucleated RBC/100 WBC (Bld) [Ratio] 0 % 0-5 [facility] Partial Thromboplast Timeon 11-03-2024 aPTT Coag (Bld) [Time] 23.8 s Low 24.1-36.2 [facility] Comment on above: Performed By: #### L 100.0100, L300.4310, L500.2500, L300.3900 #### [facility] [address] [place], [address] Platelet countOrdered By: Farhad Phillip on 11-03-2024 Platelets (Bld) [#/Vol] 474 10*3/uL High 150-450 [facility] Potassium measurementOrdered By: Terry Phillip on 11-03-2024 Potassium [Moles/Vol] 3.6 mmol/L 3.5-5.1 [facility] Prothrombin Time w/INRon INR Coag (PPP) [Relative time] 0.9 {INR} Normal [facility] Comment on above: Performed By: #### L 100.0100, L300.4310, L500.2500, L300.3900 #### [facility] [address] [place], [address] PT Coag (PPP) [Time] 12.4 s Normal 11.7-14.9 [facility] Comment on above: Performed By: #### L 100.0100, L300.4310, L500.2500, L300.3900 #### [facility] [address] [place], [address] Prothrombin timeOrdered By: Terry Phillip on 11-03-2024 PT Coag (PPP) [Time] 12.4 s 11.7-14.9 [facility] RBC Auto (Bld) [#/Vol]Ordere d By: Terry Phillip on 11-03-2024 RBC (Bld) [#/Vol] 4.13 10*6/uL Low 4.2-5.4 [facility] Serum anion gap measurementO rdered By: Terry Phillip on 11-03-2024 Anion gap [Moles/Vol] 6 mmol/L 5-15 [facility] Serum or plasma calcium ebony urement (mass/volume)Ordered By: Terry Phillip on 11-03-2024 Calcium [Mass/Vol] 9.3 mg/dL 8.5-10.1 [facility] Serum or plasma creatinine m easurement (mass/volume)Ordered By: Terry Phillip on 11-03-2024 Creatinine [Mass/Vol] 0.94 mg/dL 0.55-1.02 [facility] Comment on above: The validity of the calculated GFR & GFRAA in patients over 70 years has not been determined. Clinical correlation is essential. Serum or plasma urea nitroge n measurement (mass/volume)Ordered By: Terry Phillip on 11-03-2024 Urea nitrogen [Mass/Vol] 16 mg/dL 7-18 [facility] Sodium levelOrdered By: Terry Phillip on 11-03-2024 Sodium [Moles/Vol] 140 mmol/L 136-145 [facility] Spine Lumbar (Routine)on Spine Lumbar (Routine) [facility] Imaging Services [address] [place] [id number] Spine Lumbar (Routine) MR#: [id number] Acct: [id number] Name: ZOFIA SWEENEY Rep #: [id number] : 1965 F 59 From: Kenny Nascimento MD PCP: Care Physician,No Primary Status: PRE ER Study: Spine Lumbar (Routine) Date of Exam: 11/03/24 Exam# [id number] Ordering Dr: Terry Phillip DO [id number] STUDY: MRI LUMBAR SPINE WITHOUT CONTRAST REASON FOR EXAM: Female, 59 years old. back pain -- left leg weak, incontinent stools TECHNIQUE: Standardized fat and water weighted pulse sequences were obtained in the sagittal and axial planes. COMPARISON: None FINDINGS: T12-L1: Normal endplates. Normal disc height, hydration and morphology. Normal bilateral facet joints. Normal central canal and bilateral lateral recesses. Normal bilateral intervertebral neural foramina. Normal lumbar lordosis. There is no substantial scoliosis. Normal conus medullaris that terminates at T12-L1 L1-2: Normal endplates. Normal disc height, hydration and morphology. Normal bilateral facet joints. Normal central canal and bilateral lateral recesses. Normal bilateral intervertebral neural foramina. L2-3: Normal endplates. Normal disc height, hydration and minor annular bulge with small central disc extrusion with mild superior migration of disc fragment. Normal bilateral facet joints. Normal central canal and bilateral lateral recesses. Normal bilateral intervertebral neural foramina. L3-4: Normal endplates. Normal disc height, desiccation and minimal annular bulge with small left foraminal disc protrusion. Normal bilateral facet joints. Mild narrowing of central canal. Normal bilateral lateral recesses. Moderate left neural foraminal stenosis. L4-5: Normal endplates. Normal disc height, desiccation and minor annular bulge with small central left/left paracentral disc extrusion with mild inferior migration of disc fragment. Facet arthropathy and mild thickening of ligamenta flava. Mild narrowing of central canal. Normal bilateral lateral recesses. Small subarticular perineural cyst on the right of indeterminate clinical significance Moderate bilateral neural foraminal stenosis. L5-S1: Normal endplates. Normal disc height, desiccation and minimal annular bulge.. Facet arthropathy and thickening of ligamenta flava. Normal central canal and bilateral lateral recesses. Moderate bilateral neural foraminal stenosis. Normal visualized sacral ala. Normal visualized paraspinous soft tissue structures. MRI/Spine Lumbar (Routine) IMPRESSION: No evidence for acute fracture or other significant bony pathology. Multilevel disc degeneration and spondylosis. Spinal stenosis at L3-4 more pronounced on the left, L4-5 and L5-S1 degenerative disc disease and bony hypertrophy. Findings as above. Electronically Signed: Kenny Nascimento MD at 16:38 EST , CC: Dr. 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 Normal [facility] White blood cell (WBC) count Ordered By: Terry Phillip on 11-03-2024 WBC (Bld) [#/Vol] 10.1 10*3/uL 4.4-11.0 [facility] aPTT Coag (PPP) [Time]Ordere d By: Terry Phillip on 11-03-2024 aPTT Coag (Bld) [Time] 23.8 s Low 24.1-36.2 [facility] CNPNon 09-12-2024 CNPN Telephone (AGFAMPLE) ZOFIA SWEENEY ([id number]) 1965 F Date Time Provider Department 09/12/24 JENNIFER HERNANDEZ During your visit today, we recorded the following information about you: Nancy Oneil 09/12/2024 5:03 PM Signed Pt would like medication refilled, went to pharmacy again and it was not there. She is out and needs it for this weekend. Thank you Jennifer Hernandez DO 09/12/2024 5:05 PM Signed Rx sent DO Mary Jernigan Kimberly C, DO 09/12/2024 5:05 PM Signed Addended by: JENNIFER HERNANDEZ on: 09/12/2024 05:05 PM Modules accepted: Rodrigo Bautista MA 09/12/2024 5:13 PM Signed Patient notified. Rodrigo Vera MA Allergies As of Date: 09/12/2024 Noted Allergy Reaction VANCOMYCIN 08/14/2023 14 - Other: See Comments Comments: Back gets hot if taken IV Date Reviewed: 04/22/2024 Reviewed by: Jennifer Hernandez DO - Fully Assessed Reason for Visit: Refill Request [94] Cmt: Pt would like medication refilled Visit Diagnosis:Left sided sciatica [M54.32] Order(s):gabapentin (NEURONTIN) 600 mg tabletTake 1 tablet by mouth three times a day for 30 days.Disp: 90 tabletRfl: 0 Prescriptions as of 09/12/2024 - gabapentin (NEURONTIN) 600 mg tablet Take 1 tablet by mouth three times a day for 30 days. - albuterol HFA (PROVENTIL HFA, VENTOLIN HFA) 90 mcg/actuation inhaler Inhale 2 Puffs as instructed every 6 hours as needed for wheezing/shortness of breath. - busPIRone (BUSPAR) 5 mg tablet Take 1 tablet by mouth once daily. - cyclobenzaprine (FLEXERIL) 10 mg tablet Take 1 tablet by mouth three times a day as needed. - famotidine (PEPCID) 20 mg tablet Take 1 tablet by mouth once daily. - hydrOXYzine HCl (ATARAX) 25 mg tablet Take 1 tablet by mouth three times a day as needed. - lidocaine (SALONPAS) 4 % patch Apply 1 application as directed once daily. - meloxicam (MOBIC) 15 mg tablet Take 1 tablet by mouth once daily. - oxybutynin ER (DITROPAN XL) 15 mg 24 hr Extended Rel Tab Take 2 tablets by mouth once daily. - PARoxetine (PAXIL) 40 mg tablet Take 2 tablets by mouth once daily. - valACYclovir (VALTREX) 1 gram tablet Take 1 tablet by mouth once daily. - Blood Pressure Monitor 1 Each as directed. - bupropion HCl (WELLBUTRIN ORAL) Take by mouth two times a day. - diphenhydramine HCl (BENADRYL ALLERGY ORAL) Take 1 tablet by mouth three times a day as needed. - ammonium lactate (LAC-HYDRIN) 12 % lotion Apply to affected area once daily as needed. - FOLIC ACID 1 MG TAB Take one(1) tablet daily. - DAILY MULTIPLE TAB Take one(1) tablet daily. Problem List As Of Date 09/12/2024 Noted Resolved History of migraine [Z86.69] 07/22/2005 Recurrent major depressive disorder, in remissi* ARAM (generalized anxiety disorder) [F41.1] OSTEOARTHROS NOS-OTHER SITE [M19.90] Ulcerative colitis (HCC) [K51.90] OAB (overactive bladder) [N32.81] 09/26/2023 Left sided sciatica [M54.32] 10/09/2023 Dermatitis [L30.9] 10/09/2023 Class 1 obesity in adult [E66.811] 04/22/2024 Prescriptions ordered this encounter Disp Refills Start End GABAPENTIN 600 MG TABLET 90 t* 0 09/12/2024 10/12/2024 Route: ORAL Sig: Take 1 tablet by mouth three times a day for 30 days. Medications Discontinued During This Encounter Prescriptions - gabapentin (NEURONTIN) 600 mg tablet (Discontinued) Take 1 tablet by mouth three times a day for 30 days. Encounter Status:Closed by NANCY ONEIL on 09/12/24 [facility] 08-14-[facility]24 CNPN Telephone (AGFAMPLE) ZOFIA SWEENEY ([id number]) 1965 F Date Time Provider Department 08/14/24 JENNIFER HERNANDEZ During your visit today, we recorded the following information about you: Sonia Anderson MA 08/14/2024 2:46 PM Signed Patient left message stating she has left her home and is staying at the [facility] in [place]. States Derek is still at home and she will not be going back there. States she left without her medications so she needs all of her medications sent to [facility] in [place]. Please advise. Sonia Anderson MA Allergies As of Date: 08/14/2024 Noted Allergy Reaction VANCOMYCIN 08/14/2023 14 - Other: See Comments Comments: Back gets hot if taken IV Date Reviewed: 04/22/2024 Reviewed by: Jennifer Hernandez DO - Fully Assessed Reason for Visit: Patient Update [1234] Visit Diagnoses:ARAM (generalized anxiety disorder) [F41.1] Left sided sciatica [M54.32] Indigestion [K30] Itching [L29.9] Osteoarthrosis, unspecified whether generalized or localized, other specified sites [M19.90] OAB (overactive bladder) [N32.81] Herpes simplex vulvovaginitis [A60.04] Order(s):albuterol HFA (PROVENTIL HFA, VENTOLIN HFA) 90 mcg/actuation inhalerInhale 2 Puffs as instructed every 6 hours as needed for wheezing/shortness of breath.Disp: 1 EachRfl: 11 busPIRone (BUSPAR) 5 mg tabletTake 1 tablet by mouth once daily.Disp: 90 tabletRfl: 3 cyclobenzaprine (FLEXERIL) 10 mg tabletTake 1 tablet by mouth three times a day as needed.Disp: 90 tabletRfl: 3 famotidine (PEPCID) 20 mg tabletTake 1 tablet by mouth once daily.Disp: 30 tabletRfl: 2 gabapentin (NEURONTIN) 600 mg tabletTake 1 tablet by mouth three times a day for 30 days.Disp: 90 tabletRfl: 0 hydrOXYzine HCl (ATARAX) 25 mg tabletTake 1 tablet by mouth three times a day as needed.Disp: 90 tabletRfl: 3 lidocaine (SALONPAS) 4 % patchApply 1 application as directed once daily.Disp: 90 PatchRfl: 3 meloxicam (MOBIC) 15 mg tabletTake 1 tablet by mouth once daily.Disp: 90 tabletRfl: 3 oxybutynin ER (DITROPAN XL) 15 mg 24 hr Extended Rel TabTake 2 tablets by mouth once daily.Disp: 180 tabletRfl: 3 PARoxetine (PAXIL) 40 mg tabletTake 2 tablets by mouth once daily.Disp: 180 tabletRfl: 3 valACYclovir (VALTREX) 1 gram tabletTake 1 tablet by mouth once daily.Disp: 30 tabletRfl: 11 Prescriptions as of 08/14/2024 - albuterol HFA (PROVENTIL HFA, VENTOLIN HFA) 90 mcg/actuation inhaler Inhale 2 Puffs as instructed every 6 hours as needed for wheezing/shortness of breath. - busPIRone (BUSPAR) 5 mg tablet Take 1 tablet by mouth once daily. - cyclobenzaprine (FLEXERIL) 10 mg tablet Take 1 tablet by mouth three times a day as needed. - famotidine (PEPCID) 20 mg tablet Take 1 tablet by mouth once daily. - gabapentin (NEURONTIN) 600 mg tablet Take 1 tablet by mouth three times a day for 30 days. - hydrOXYzine HCl (ATARAX) 25 mg tablet Take 1 tablet by mouth three times a day as needed. - lidocaine (SALONPAS) 4 % patch Apply 1 application as directed once daily. - meloxicam (MOBIC) 15 mg tablet Take 1 tablet by mouth once daily. - oxybutynin ER (DITROPAN XL) 15 mg 24 hr Extended Rel Tab Take 2 tablets by mouth once daily. - PARoxetine (PAXIL) 40 mg tablet Take 2 tablets by mouth once daily. - valACYclovir (VALTREX) 1 gram tablet Take 1 tablet by mouth once daily. - Blood Pressure Monitor 1 Each as directed. - bupropion HCl (WELLBUTRIN ORAL) Take by mouth two times a day. - diphenhydramine HCl (BENADRYL ALLERGY ORAL) Take 1 tablet by mouth three times a day as needed. - ammonium lactate (LAC-HYDRIN) 12 % lotion Apply to affected area once daily as needed. - FOLIC ACID 1 MG TAB Take one(1) tablet daily. - DAILY MULTIPLE TAB Take one(1) tablet daily. Problem List As Of Date 08/14/2024 Noted Resolved History of migraine [Z86.69] 07/22/2005 Recurrent major depressive disorder, in remissi* ARAM (generalized anxiety disorder) [F41.1] OSTEOARTHROS NOS-OTHER SITE [M19.90] Ulcerative colitis (HCC) [K51.90] OAB (overactive bladder) [N32.81] 09/26/2023 Left sided sciatica [M54.32] 10/09/2023 Dermatitis [L30.9] 10/09/2023 Class 1 obesity in adult [E66.811] 04/22/2024 Prescriptions ordered this encounter Disp Refills Start End ALBUTEROL SULFATE HFA 90 MCG/ACTUATI* 1 Ea* 11 08/14/2024 Cmt: Generic or brand: dispense inhaler preferred by patient/insurance unless FABRICE flag is selected. Route: INHALATION Sig: Inhale 2 Puffs as instructed every 6 hours as needed for wheezing/shortness of breath. BUSPIRONE 5 MG TABLET 90 t* 3 08/14/2024 Route: ORAL Sig: Take 1 tablet by mouth once daily. CYCLOBENZAPRINE 10 MG TABLET 90 t* 3 08/14/2024 Route: ORAL Sig: Take 1 tablet by mouth three times a day as needed. FAMOTIDINE 20 MG TABLET 30 t* 2 08/14/2024 Route: ORAL Sig: Take 1 tablet by mouth once daily. (more content not included)... [facility] ZOFIA SWEENEY Ada ([id number]) 1965 F Date Time Provider Department 05/30/24 JENNIFER HERNANDEZ During your visit today, we recorded the following information about you: Nancy Oneil 05/30/2024 3:47 PM Signed .No Show Documentation Zofia Sweeney no showed for an appointment on 05/30/24 with Jennifer Hernandez DO at 3:00 am. She was scheduled for follow up. I called and spoke with the patient regarding her missed appointment. Zofia stated the reason that she missed her appointment was because she was at another appt. . Resources discussed/offered to patient: she would call back to reschedule appt No show determined to be fault of patient: Yes This is the patients first no show in the last 12 months. Patient was rescheduled for NA. Letter mailed : No Is this the Third or Fourth No Show? Frannie Oneil May 30, 2024 3:45 PM Allergies As of Date: 05/30/2024 Noted Allergy Reaction VANCOMYCIN 08/14/2023 14 - Other: See Comments Comments: Back gets hot if taken IV Date Reviewed: 04/22/2024 Reviewed by: Jennifer Hernandez DO - Fully Assessed Reason for Visit: No Show [1558] Cmt: Pt no showed for appt on 05/30/24 Pt called after appt time, 3:20 pm to cancel appt. Prescriptions as of 05/30/2024 - hydrOXYzine HCl (ATARAX) 25 mg tablet take 1 tablet by mouth three times daily as needed - cyclobenzaprine (FLEXERIL) 10 mg tablet take 1 tablet by mouth three times daily as needed - gabapentin (NEURONTIN) 600 mg tablet Take 1 tablet by mouth three times a day for 30 days. - famotidine (PEPCID) 20 mg tablet Take 1 tablet by mouth once daily. - busPIRone (BUSPAR) 5 mg tablet Take 1 tablet by mouth once daily. - valACYclovir (VALTREX) 1 gram tablet Take 1 tablet by mouth once daily. - Blood Pressure Monitor 1 Each as directed. - terbinafine HCl (LAMISIL) 250 mg tablet Take 1 tablet by mouth once daily. - PARoxetine (PAXIL) 40 mg tablet Take 2 tablets by mouth once daily. - meloxicam (MOBIC) 15 mg tablet Take 1 tablet by mouth once daily. - oxybutynin ER (DITROPAN XL) 15 mg 24 hr Extended Rel Tab Take 2 tablets by mouth once daily. - albuterol HFA (PROVENTIL HFA, VENTOLIN HFA) 90 mcg/actuation inhaler Inhale 2 Puffs as instructed every 6 hours as needed for wheezing/shortness of breath. - lidocaine (SALONPAS) 4 % patch Apply 1 application as directed once daily. - bupropion HCl (WELLBUTRIN ORAL) Take by mouth two times a day. - diphenhydramine HCl (BENADRYL ALLERGY ORAL) Take 1 tablet by mouth three times a day as needed. - ammonium lactate (LAC-HYDRIN) 12 % lotion Apply to affected area once daily as needed. - FOLIC ACID 1 MG TAB Take one(1) tablet daily. - DAILY MULTIPLE TAB Take one(1) tablet daily. Problem List As Of Date 05/30/2024 Noted Resolved History of migraine [Z86.69] 07/22/2005 Recurrent major depressive disorder, in remissi* ARAM (generalized anxiety disorder) [F41.1] OSTEOARTHROS NOS-OTHER SITE [M19.90] Ulcerative colitis (HCC) [K51.90] OAB (overactive bladder) [N32.81] 09/26/2023 Left sided sciatica [M54.32] 10/09/2023 Dermatitis [L30.9] 10/09/2023 Class 1 obesity in adult [E66.9] 04/22/2024 Encounter Status:Closed by THAD NANCY KIMANI on 05/30/24 [facility] CNOVon 04-22-2024 CNOV Office Visit (GERALD) ZOFIA SWEENEY Ada ([id number]) 1965 F Date Time Provider Department 04/22/24 4:00 PM JENNIFER HERNANDEZ During your visit today, we recorded the following information about you: Temperature Pulse Respiration Blood pressure 98.2 degrees 88/minute 16/minute 132/76 Weight Height 75.8 kg 1.53 m Jennifer Hernandez DO 05/06/2024 9:40 AM Signed Subjective HPI Pt is here for f/u for toenail fungus She was started on lamisil 6 weeks ago by Iglesia Yang She has not had any adverse side effects from the medication Her toenails show clearing at the outgrowth She is taking valtrex for genital herpes breakouts She had chest pain the other day in congregational It lasted about 15 minutes She has indigestion She would like something to take something for that She takes rolaids daily She is getting leg and hand cramps nightly She smokes 1/2 PPD ALLERGIES Allergen Reactions Vancomycin Other: See Comments Back gets hot if taken IV Current Outpatient Medications Medication Sig Dispense Refill gabapentin (NEURONTIN) 600 mg tablet Take 1 tablet by mouth three times a day for 30 days. 90 tablet 0 busPIRone (BUSPAR) 5 mg tablet Take 1 tablet by mouth once daily. 90 tablet 3 valACYclovir (VALTREX) 1 gram tablet Take 1 tablet by mouth once daily. 30 tablet 11 Blood Pressure Monitor 1 Each as directed. 1 Kit 0 terbinafine HCl (LAMISIL) 250 mg tablet Take 1 tablet by mouth once daily. 90 tablet 0 hydrOXYzine HCl (ATARAX) 25 mg tablet Take 1 tablet by mouth three times a day as needed. 90 tablet 3 cyclobenzaprine (FLEXERIL) 10 mg tablet Take 1 tablet by mouth three times a day as needed. 90 tablet 3 PARoxetine (PAXIL) 40 mg tablet Take 2 tablets by mouth once daily. 180 tablet 3 meloxicam (MOBIC) 15 mg tablet Take 1 tablet by mouth once daily. 90 tablet 3 oxybutynin ER (DITROPAN XL) 15 mg 24 hr Extended Rel Tab Take 2 tablets by mouth once daily. 180 tablet 3 albuterol HFA (PROVENTIL HFA, VENTOLIN HFA) 90 mcg/actuation inhaler Inhale 2 Puffs as instructed every 6 hours as needed for wheezing/shortness of breath. 1 Each 11 lidocaine (SALONPAS) 4 % patch Apply 1 application as directed once daily. 90 Patch 3 bupropion HCl (WELLBUTRIN ORAL) Take by mouth two times a day. diphenhydramine HCl (BENADRYL ALLERGY ORAL) Take 1 tablet by mouth three times a day as needed. ammonium lactate (LAC-HYDRIN) 12 % lotion Apply to affected area once daily as needed. 225 g 11 FOLIC ACID 1 MG TAB Take one(1) tablet daily. 0 DAILY MULTIPLE TAB Take one(1) tablet daily. 0 predniSONE (DELTASONE) 10 mg tablet Prednisone taper; take once daily with food: 6 x 2d/5x2d/4x2d/3x2d/2x2 d/1x2d/0.5x2d (Patient not taking: Reported on 04/22/2024) 43 tablet 0 methylPREDNISolone (MEDROL, MACK,) 4 mg Dose-Pack As Instructed per package (Patient not taking: Reported on 04/22/2024) 21 tablet 0 No current facility-administered medications for this visit. ACTIVE PROBLEM LIST History of Migraine Recurrent Major Depressive Disorder, in Remission (Hcc) Aram (Generalized Anxiety Disorder) Osteoarthrosis, Unspecified Whether Generalized Or Localized, Other Specified Sites Ulcerative Colitis (Hcc) Oab (Overactive Bladder) Left Sided Sciatica Dermatitis Social History Tobacco Use Smoking status: Every Day Packs/day: 0.50 Years: 10.00 Additional pack years: 0.00 Total pack years: 5.00 Types: Cigarettes Smokeless tobacco: Never Vaping Use Vaping Use: Never used Substance Use Topics Alcohol use: Not Currently Comment: occasionally Drug use: Not Currently Types: Crack Cocaine Comment: pt report she quite july 2023 Family History Problem Relation Age of Onset Cancer Mother ovarian, uterine, lung Diabetes Mother Hypertension Mother Dementia Mother Hypertension Father Heart Father Alzheimer's Disease Father Heart Attack Father Thyroid Sister Reviewed past medical history, family history and surgeries. All medications and supplements were reviewed with the patient. Review of Systems Constitutional: Negative for chills, diaphoresis, fever, malaise/fatigue and weight loss. HENT: Negative for ear pain and hearing loss. Eyes: Negative for blurred vision and double vision. Respiratory: Negative for cough and shortness of breath. Cardiovascular: Positive for chest pain. Negative for palpitations and leg swelling. Gastrointestinal: Positive for heartburn. Negative for constipation and diarrhea. Genitourinary: Negative for dysuria and frequency. Musculoskeletal: Positive for myalgias. Negative for back pain, falls and joint pain. Skin: Negative for itching and rash. Toenail fungus Neurological: Negative for dizziness, weakness and headaches. Endo/Heme/Allergies: Does not bruise/bleed easily. Psychiatric/Behaviora l: Negative for depression and substance ab (more content not included)... [facility] ECG B/O W INTERP (MED OFFICE )on 04-22-2024 ALEXANDRIA Hernandez DO [facility] CNPLolis 04-10-2024 [facility] Telephone (AGFAMPLE) ZOFIA SWEENEY ([id number]) 1965 F Date Time Provider Department 04/10/24 JENNIFER HERNANDEZ During your visit today, we recorded the following information about you: Marylou Sutton MA 04/10/2024 2:56 PM Signed Patient was seen at the ER for poison cheo and it has now spread into her groin area so she was wondering if something could be sent in for OLIVIER Beltran Brittny A, SALVAGE DETERMINER.AQUARIUM TANK ATTENDANT 04/10/2024 3:01 PM Signed She was already on a long steroid taper and a Medrol dose mack so I'm not if another round would be effective. She may need a Kenalog injection. Would she like to come in for that or try the steroid injection. It looks like she has Hydroxyzine on her med list, this can help with the itching. She should probably have an appointment with someone to assess it. Sonia Anderson MA 04/10/2024 3:11 PM Signed Left message requesting patient call office back. OLIVIER Ortega Janie, MA 04/11/2024 2:21 PM Signed Left message requesting patient call back and schedule appointment to be re-assessed. Sonia Anderson MA Allergies As of Date: 04/10/2024 Noted Allergy Reaction VANCOMYCIN 08/14/2023 14 - Other: See Comments Comments: Back gets hot if taken IV Date Reviewed: 04/02/2024 Reviewed by: Prashant Ramos RN - Fully Assessed Reason for Visit: Patient Question [8767] Prescriptions as of 04/11/2024 - predniSONE (DELTASONE) 10 mg tablet Prednisone taper; take once daily with food: 6 x 2d/5x2d/4x2d/3x2d/2x2 d/1x2d/0.5x2d - cetirizine (ZYRTEC) 10 mg tablet Take 1 tablet by mouth once daily for 14 days. - famotidine (PEPCID) 20 mg tablet Take 1 tablet by mouth two times a day for 14 days. - gabapentin (NEURONTIN) 600 mg tablet Take 1 tablet by mouth three times a day for 30 days. - busPIRone (BUSPAR) 5 mg tablet Take 1 tablet by mouth once daily. - valACYclovir (VALTREX) 1 gram tablet Take 1 tablet by mouth once daily. - Blood Pressure Monitor 1 Each as directed. - terbinafine HCl (LAMISIL) 250 mg tablet Take 1 tablet by mouth once daily. - methylPREDNISolone (MEDROL, MACK,) 4 mg Dose-Pack As Instructed per package - hydrOXYzine HCl (ATARAX) 25 mg tablet Take 1 tablet by mouth three times a day as needed. - cyclobenzaprine (FLEXERIL) 10 mg tablet Take 1 tablet by mouth three times a day as needed. - PARoxetine (PAXIL) 40 mg tablet Take 2 tablets by mouth once daily. - meloxicam (MOBIC) 15 mg tablet Take 1 tablet by mouth once daily. - oxybutynin ER (DITROPAN XL) 15 mg 24 hr Extended Rel Tab Take 2 tablets by mouth once daily. - albuterol HFA (PROVENTIL HFA, VENTOLIN HFA) 90 mcg/actuation inhaler Inhale 2 Puffs as instructed every 6 hours as needed for wheezing/shortness of breath. - lidocaine (SALONPAS) 4 % patch Apply 1 application as directed once daily. - bupropion HCl (WELLBUTRIN ORAL) Take by mouth two times a day. - diphenhydramine HCl (BENADRYL ALLERGY ORAL) Take 1 tablet by mouth three times a day as needed. - ammonium lactate (LAC-HYDRIN) 12 % lotion Apply to affected area once daily as needed. - FOLIC ACID 1 MG TAB Take one(1) tablet daily. - DAILY MULTIPLE TAB Take one(1) tablet daily. Problem List As Of Date 04/10/2024 Noted Resolved History of migraine [Z86.69] 07/22/2005 Recurrent major depressive disorder, in remissi* ARAM (generalized anxiety disorder) [F41.1] OSTEOARTHROS NOS-OTHER SITE [M19.90] Ulcerative colitis (HCC) [K51.90] OAB (overactive bladder) [N32.81] 09/26/2023 Left sided sciatica [M54.32] 10/09/2023 Dermatitis [L30.9] 10/09/2023 Encounter Status:Closed by MARYLOU SUTTON on 04/10/24 [facility] ED NOTEon 04-02-2024 ED NOTE HNO ID: [id number] Author: RAOUL GUTIERREZ RN Service: ? Author Type: Registered Nurse Type: ED Notes Filed: 04/03/2024 10:11 Note Text: Patient Call Back Information How are you doing ? better Did we appropriately manage your pain? Yes Did you understand your discharge instructions? Yes Did you get your prescriptions filled? No Were you able to make a follow-up appointment with your physician? No Were you comfortable during your stay here? Yes Did a member of the ER nursing team round on you during your visit? Yes You will receive a patient satisfaction survey in the mail in the nest 2 weeks, please take the time to fill out the survey as your input from your ER visit is very important to us. Yes Can we do anything else to help you? No [facility] ED NOTE HNO ID: [id number] Author: PRASHANT RAMOS RN Service: Emergency Medicine Author Type: Registered Nurse Type: ED Notes Filed: 04/02/2024 14:26 Note Text: Pt c/o rash that she believes is poison cheo to right and left arm and now notices some on face. Was on prednisone for. [place], warm, dry. No apparent distress. Alert and oriented. [facility] ED PROV NOTEon 04-02-2024 ED PROV NOTE HNO ID: [id number] Author: AR MARTINS MD Service: Emergency Medicine Author Type: Physician Type: ED Provider Notes Filed: 04/02/2024 14:55 Note Text: ED Provider Note Patient Name: Zofia Sweeney : 1965 SERVICE DATE: 04/02/24 History Patient presents with: Rash Zofia Sweeney is a 58 year old female with history of multiple chronic medical problems who presents with a new generalized rash that is described as itching. Patient used Medrol pack and Benadryl prior to arrival. - Patient was exposed to poison cheo. - Symptoms began 1 weeks prior to arrival. Onset was gradual. - Severity: moderate - Symptoms are exacerbated by scratching. - Symptoms are not exacerbated by movement. - Symptoms are associated with itching. - Symptoms are not associated with difficulty breathing. - Improved by partial improvement with Medrol pack. Patient developed a poison cheo dermatitis a couple weeks ago she was actually on a Medrol pack for her ulcerative colitis at that time and it seemed to respond to that along with antihistamine but now his rebounded and she feels like it is actually getting worse. PAST MEDICAL HISTORY Diagnosis Date Anxiety state, unspecified Depressive disorder, not elsewhere classified Osteoarthrosis, unspecified whether generalized or localized, other specified sites Other forms of migraine 07/2005 Ulcerative colitis, unspecified Ulcerative colitis PAST SURGICAL HISTORY Procedure Laterality Date COLONOSCOPY FLX DX W/COLLJ SPEC WHEN PFRMD 12/20/2005 Colonoscopy LIG/TRNSXJ FLP TUBE ABDL/VAG APPR UNI/BI 10/22/1984 Tubal ligation PAST SURGICAL HISTORY OF left eye - multiple surgeries - muscles, ligaments REPAIR ROTATOR CUFF,ACUTE Right TONSILLECTOMY PRIMARY/SECONDARY AGE 10/> age 16 TOTAL ABDOM HYSTERECTOMY FAMILY HISTORY Problem Relation Age of Onset Cancer Mother ovarian, uterine, lung Diabetes Mother Hypertension Mother Dementia Mother Hypertension Father Heart Father Alzheimer's Disease Father Heart Attack Father Thyroid Sister Social History Tobacco Use Smoking status: Every Day Packs/day: 0.50 Years: 10.00 Additional pack years: 0.00 Total pack years: 5.00 Types: Cigarettes Smokeless tobacco: Never Vaping Use Vaping Use: Never used Substance and Sexual Activity Alcohol use: Not Currently Comment: occasionally Drug use: Not Currently Types: Crack Cocaine Comment: pt report she quite july 2023 Sexual activity: Not on file Comment: ALLERGIES Allergen Reactions Vancomycin Other: See Comments Back gets hot if taken IV Review of Systems Physical Exam Vitals [04/02/24 1421] BP Pulse Temp Temp src Resp SpO2 Weight Height 146/78 (!) 97 36.5 ?C (97.7 ?F) Temporal 16 96 % 77.1 kg (170 lb) 1.524 m (5') Physical Exam Vitals and nursing note reviewed. Constitutional: General: She is not in acute distress. Appearance: Normal appearance. She is not ill-appearing. HENT: Head: Normocephalic and atraumatic. Pulmonary: Effort: Pulmonary effort is normal. No respiratory distress. Skin: General: Skin is warm and dry. Capillary Refill: Capillary refill takes less than 2 seconds. Findings: Rash present. Comments: Rash primarily on the extremities with some concentration of dermatitis in the antecubital fossa's she also has some small lesions on the legs and face. These are somewhat excoriated from scratching but none cellulitic Neurological: Mental Status: She is alert and oriented to person, place, and time. Psychiatric: Mood and Affect: Mood normal. Behavior: Behavior normal. Thought Content: Thought content normal. Judgment: Judgment normal. Diagnostic Testing ED Labs Ordered and Reviewed - No data to display Procedures ED Course / Clinical Impression Clinical Impressions as of 04/02/24 5779 Contact dermatitis due to poison cheo MDM / Disposition / Plan Nontoxic well-hydrated no signs of distress or rashes consistent with poison cheo dermatitis nothing that looks cellulitic at this time. I think she would benefit from a higher dose longer taper of steroid and will do both H1 and H2 blockers. Recommend she keep the rash clean soap and water but avoid any astringent type topical applications. No indication for transfer or admission. History and Record Review External record(s) reviewed: prior outpatient record. Findings from review of outpatient records: Poison cheo dermatitis Differential Diagnoses - Poison cheo dermatitis is more likely for the following reason(s): suggested by HANDP - Cellulitis is less likely for the following reason(s): HANDP not suggestive Re-evaluation vital signs in acceptable range and see ED course Ar Martins MD Disposition The patient was discharged. Admission considered: See MDM narrative Counseled patient regarding suspected diagnosis. SIGNATURE: Ar Martins MD - AR MARTINS (more content not included)... [facility] ED NOTEon 03-20-2024 ED NOTE HNO ID: [id number] Author: NILAY MEJÍA RN Service: ? Author Type: Registered Nurse Type: ED Notes Filed: 03/20/2024 00:45 Note Text: Patient discharged, given verbal and written discharge instructions. Patient verbalized understanding. Nurse discussed medication (bacterium) that were prescribed and follow up appointments (GI AND PCP) and signs/symptoms of worsening conditions, and reasons why to come back to the emergency department. [facility] ALLIED HEALTHon 03-19-2024 ALLIED HEALTH HNO ID: [id number] Author: DEBBIE JHAVERI CT Service: Radiology Author Type: Technologist Type: Allied Health Filed: 03/19/2024 23:12 Note Text: Radiology Service Progress Note DATE OF SERVICE: March 19, 2024 TIME: 11:12 PM PATIENT IDENTITY VERIFICATION COMPLETED USING TWO (2) STANDARD IDENTIFIERS: Name and Date of confirmed by patient verbally and Name and Date of confirmed by identification band. FALL SCREENING: Has the patient had 2 falls in the last year or 1 fall with injury or currently using an Ambulatory Assistive Device (Walker, Cane, Wheelchair, Crutches, etc.)? Emergency Room Patient: Screened in ED PATIENT GENDER DATA: Female. status: : No status: NO. 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 EXAM: CT -CONTRAST INDUCED NEPHROPATHY RISK FACTORS: Patient age > 60 years CREATININE: Creatinine Date Value Ref Range Status 03/19/2024 0.82 0.58 - 0.96 mg/dL Final 11/30/2023 0.96 0.58 - 0.96 mg/dL Final Estimated Glomerular Filtration Rate Date Value Ref Range Status 03/19/2024 82 >=60 mL/min/1.73m? Final Comment: Estimated Glomerular Filtration Rate (eGFR) is calculated using the 2020 CKD-EPI creatinine equation. This equation utilizes serum creatinine, sex, and age as parameters. The creatinine assay has traceable calibration to isotope dilution-mass spectrometry. Refer to KDIGO guidelines for clinical interpretation. In patients with unstable renal function, e.g. those with acute kidney injury, the eGFR may not accurately reflect actual GFR. P.O.C.T. RESULTS: POC done: Yes, See Lab Tab March 19, 2024 TREATMENT: N/A PERIPHERAL IV DATA: Inpatient - refer to LDA documentation RADIOLOGY DEPARTMENT: CT; Exam(s) Completed: Abdomen/Pelvis SIGNATURE: BRIANNA Wiley PATIENT NAME: Zofia Sweeney DATE: March 19, 2024 TIME: 11:12 PM Normal [facility] CBC W Auto Differential pane l (Bld)on 03-19-2024 Basophils (Bld) [#/Vol] 0.09 10*3/uL Normal <0.11 [facility] Comment on above: Order Comment: Mónica grimm Type: BLOOD SPECIMEN Ordering Facility: [facility] Address: [address] [place] [address] Performed By: #### 5 7021-8 #### [facility] CLIA [id number] [address] [place] [address] [place] Basophils/100 WBC (Bld) 0.9 % Normal [facility] Comment on above: Order Comment: Mitchelli alfa Type: BLOOD SPECIMEN Ordering Facility: [facility] Address: [address] [place] [address] Performed By: #### 5 7021-8 #### [facility] CLIA [id number] [address] [place] Differential cell count method Nom (Bld) Auto Normal [facility] Comment on above: Order Comment: Mitchelli alfa Type: BLOOD SPECIMEN Ordering Facility: [facility] Address: [address] [place] [address] Performed By: #### 5 7021-8 #### [facility] CLIA [id number] [address] [place] [address] [place] Eosinophils (Bld) [#/Vol] 0.10 10*3/uL Normal <0.46 [facility] Comment on above: Order Comment: Speci men Type: BLOOD SPECIMEN Ordering Facility: [facility] Address: [address] [place] [address] Performed By: #### 5 7021-8 #### [facility] CLIA [id number] [address] [place] [address] [place] Eosinophils/100 WBC (Bld) 1.1 % Normal [facility] Comment on above: Order Comment: Speci men Type: BLOOD SPECIMEN Ordering Facility: [facility] Address: [address] [place] [address] Performed By: #### 5 7021-8 #### [facility] CLIA [id number] [address] [place] Erythrocyte distribution width (RBC) [Ratio] 14.9 % Normal 11.5-15.0 [facility] Comment on above: Order Comment: Speci men Type: BLOOD SPECIMEN Ordering Facility: [facility] Address: [address] [place] [address] Performed By: #### 5 7021-8 #### [facility] CLIA [id number] [address] [place] Hematocrit (Bld) [Volume fraction] 37.7 % Normal 36.0-46.0 [facility] Comment on above: Order Comment: Speci men Type: BLOOD SPECIMEN Ordering Facility: [facility] Address: [address] [place] [address] Performed By: #### 5 7021-8 #### [facility] CLIA [id number] [address] [place] Hemoglobin (Bld) [Mass/Vol] 12.5 g/dL Normal 11.5-15.5 [facility] Comment on above: Order Comment: Speci men Type: BLOOD SPECIMEN Ordering Facility: [facility] Address: [address] [place] [address] Performed By: #### 5 7021-8 #### [facility] CLIA [id number] [address] [place] [address] [place] Immature granulocytes (Bld) [#/Vol] 0.12 10*3/uL High <0.10 [facility] Comment on above: Order Comment: Speci men Type: BLOOD SPECIMEN Ordering Facility: [facility] Address: [address] [place] [address] Performed By: #### 5 7021-8 #### [facility] CLIA [id number] [address] [place] Immature granulocytes/100 WBC (Bld) 1.3 % Normal [facility] Comment on above: Order Comment: Speci men Type: BLOOD SPECIMEN Ordering Facility: [facility] Address: [address] [place] [address] Performed By: #### 5 7021-8 #### [facility] CLIA [id number] [address] [place] [address] [place] Lymphocytes (Bld) [#/Vol] 2.12 10*3/uL Normal 1.00-4.00 [facility] Comment on above: Order Comment: Speci men Type: BLOOD SPECIMEN Ordering Facility: [facility] Address: [address] [place] [address] Performed By: #### 5 7021-8 #### [facility] CLIA [id number] [address] [place] Lymphocytes/100 WBC (Bld) 22.3 % Normal [facility] Comment on above: Order Comment: Speci men Type: BLOOD SPECIMEN Ordering Facility: [facility] Address: [address] [place] [address] Performed By: #### 5 7021-8 #### [facility] CLIA [id number] [address] [place] [address] [place] MCH (RBC) [Entitic mass] 30.1 pg Normal 26.0-34.0 [facility] Comment on above: Order Comment: Speci men Type: BLOOD SPECIMEN Ordering Facility: [facility] Address: [address] [place] [address] Performed By: #### 5 7021-8 #### [facility] CLIA [id number] [address] [place] [address] [place] MCHC (RBC) [Mass/Vol] 33.2 g/dL Normal 30.5-36.0 [facility] Comment on above: Order Comment: Speci men Type: BLOOD SPECIMEN Ordering Facility: [facility] Address: [address] [place] [address] Performed By: #### 5 7021-8 #### [facility] CLIA [id number] [address] [place] [address] [place] MCV (RBC) [Entitic vol] 90.8 fL Normal 80.0-100.0 [facility] Comment on above: Order Comment: Speci men Type: BLOOD SPECIMEN Ordering Facility: [facility] Address: [address] [place] [address] Performed By: #### 5 7021-8 #### [facility] CLIA [id number] [address] [place] [address] [place] Monocytes (Bld) [#/Vol] 0.96 10*3/uL High <0.87 [facility] Comment on above: Order Comment: Speci men Type: BLOOD SPECIMEN Ordering Facility: [facility] Address: [address] [place] [address] Performed By: #### 5 7021-8 #### [facility] CLIA [id number] [address] [place] Monocytes/100 WBC (Bld) 10.1 % Normal [facility] Comment on above: Order Comment: Speci men Type: BLOOD SPECIMEN Ordering Facility: [facility] Address: [address] [place] [address] Performed By: #### 5 7021-8 #### [facility] CLIA [id number] [address] [place] [address] [place] Neutrophils (Bld) [#/Vol] 6.10 10*3/uL Normal 1.45-7.50 [facility] Comment on above: Order Comment: Speci men Type: BLOOD SPECIMEN Ordering Facility: [facility] Address: [address] [place] [address] Performed By: #### 5 7021-8 #### [facility] CLIA [id number] [address] [place] Neutrophils/100 WBC (Bld) 64.3 % Normal [facility] Comment on above: Order Comment: Speci men Type: BLOOD SPECIMEN Ordering Facility: [facility] Address: [address] [place] [address] Performed By: #### 5 7021-8 #### [facility] CLIA [id number] [address] [place] [address] [place] Nucleated RBC (Bld) [#/Vol] 10*3/uL Normal <0.01 [facility] Comment on above: Order Comment: Speci men Type: BLOOD SPECIMEN Ordering Facility: [facility] Address: [address] [place] [address] Performed By: #### 5 7021-8 #### [facility] CLIA [id number] [address] [place] [address] [place] Nucleated RBC/100 WBC (Bld) [Ratio] 0.0 /100 WBC Normal [facility] Comment on above: Order Comment: Speci men Type: BLOOD SPECIMEN Ordering Facility: [facility] Address: [address] [place] [address] Performed By: #### 5 7021-8 #### [facility] CLIA [id number] [address] [place] [address] [place] Platelet mean volume (Bld) [Entitic vol] 9.0 fL Normal 9.0-12.7 [facility] Comment on above: Order Comment: Speci men Type: BLOOD SPECIMEN Ordering Facility: [facility] Address: [address] [place] [address] Performed By: #### 5 7021-8 #### [facility] CLIA [id number] [address] [place] [address] [place] Platelets (Bld) [#/Vol] 456 10*3/uL High 150-400 [facility] Comment on above: Order Comment: Speci men Type: BLOOD SPECIMEN Ordering Facility: [facility] Address: [address] [place], [place] [address] Performed By: #### 5 7021-8 #### [facility] CLIA [id number] [address] OF [facility] RBC (Bld) [#/Vol] 4.15 10*6/uL Normal 3.90-5.[address] [facility] Comment on above: Order Comment: Speci men Type: BLOOD SPECIMEN Ordering Facility: [facility] Address: [address] [place] [address] Performed By: #### 5 7021-8 #### [facility] CLIA [id number] [address] OF [facility] WBC (Bld) [#/Vol] 9.49 10*3/uL Normal 3.70-11.[address] [facility] Comment on above: Order Comment: Speci men Type: BLOOD SPECIMEN Ordering Facility: [facility] Address: [address] [place] [address] Performed By: #### 5 7021-8 #### [facility] CLIA [id number] [address] [place] [address] ABD/PEL W IVCONon 03-19-[address] ABD/PEL W IVCON * * *Final Report* * * DATE OF EXAM: Mar 19 2024 11:29PM [facility] 0530 - CT ABD/PEL W IVCON / PROCEDURE REASON: Lower GI bleed (Ped 0-18y) * * * * Physician Interpretation * * * * EXAMINATION: CT ABDOMEN AND PELVIS WITH IV CONTRAST CLINICAL HISTORY: Abdominal pain, diarrhea, rectal bleeding TECHNIQUE: CT of the abdomen and pelvis was performed using standard technique, scanning from just above the dome of the diaphragm to the symphysis pubis. MQ: CTAP_3 Contrast: IV: 100 ml of Omnipaque 350 : ml of CT Radiation dose: Integrated Dose-length product (DLP) for this visit = 270 mGy*cm. CT Dose Reduction Employed: Automated exposure control(AEC) and iterative recon COMPARISON: None. RESULT: Liver: 1.1 cm cyst in the left hepatic lobe. Biliary: No bile duct dilation. No radiopaque gallstones. Spleen: No mass. No splenomegaly. Pancreas: No mass or duct dilation. Adrenals: No mass. Kidneys: No mass, calculus or hydronephrosis. GI tract: No dilated loops of bowel. Mild thickening of the rectum with surrounding inflammatory changes. Mild thickening and/or underdistention of the descending and sigmoid colon. Lymph nodes: No enlarged lymph nodes within the abdomen. Perirectal lymph nodes measure up to 0.6 cm short axis. Presacral lymph node measures 0.7 cm short axis. Lymph nodes are likely reactive. Mesentery/Peritoneum: No ascites or mass. Retroperitoneum: No mass. Vasculature: - Abdominal aorta and iliac arteries: No aneurysm. - Celiac and SMA: Patent without stenosis. - Portal venous system (SMV, splenic vein, portal vein and branches): Patent. - Hepatic veins: Patent. Pelvis: Urinary bladder is unremarkable. Uterus is present. Bones/Soft Tissues: Degenerative disc disease L5-S1. Tiny fat-containing umbilical hernia. Lower thorax: Minimal dependent atelectasis. Localizer images: No additional findings. IMPRESSION: Mild thickening of the rectum with adjacent inflammatory changes. Mild thickening versus underdistention of the descending and sigmoid colon. Findings are suggestive of a nonspecific colitis. Sewer Builder: PSCB Transcribe Date/Time: Mar 20 2024 12:01A Dictated by : JUAN RAI MD This examination was interpreted and the report reviewed and electronically signed by: JUAN RAI MD on Mar 20 2024 12:08AM EST [id number] Normal [facility] Comprehensive metabolic 2000 panelon 03-19-2024 Albumin [Mass/Vol] 4.5 g/dL Normal 3.9-4.9 [facility] Comment on above: Order Comment: Speci men Type: BLOOD SPECIMEN Ordering Facility: [facility] Address: [address] [place] [address] Performed By: #### 2 4323-8 #### [facility] CLIA [id number] [address] [place] [address] [place] ALP [Catalytic activity/Vol] 71 U/L Normal 34-123 [facility] Comment on above: Order Comment: Speci men Type: BLOOD SPECIMEN Ordering Facility: [facility] Address: [address] [place] [address] Performed By: #### 2 4323-8 #### [facility] CLIA [id number] [address] ALT [Catalytic activity/Vol] 19 U/L Normal 7-38 [facility] Comment on above: Order Comment: Speci men Type: BLOOD SPECIMEN Ordering Facility: [facility] Address: [address] [place] [address] Performed By: #### 2 4323-8 #### [facility] CLIA [id number] [address] [place] [address] [place] Anion gap [Moles/Vol] 10 mmol/L Normal 9-18 [facility] Comment on above: Order Comment: Speci men Type: BLOOD SPECIMEN Ordering Facility: [facility] Address: [address] [place] [address] Performed By: #### 2 4323-8 #### [facility] CLIA [id number] [address] AST [Catalytic activity/Vol] 27 U/L Normal 13-35 [facility] Comment on above: Order Comment: Speci men Type: BLOOD SPECIMEN Ordering Facility: [facility] Address: [address] [place] [address] Performed By: #### 2 4323-8 #### [facility] CLIA [id number] [address] [place] Bilirubin [Mass/Vol] mg/dL Low 0.2-1.3 [facility] Comment on above: Order Comment: Speci men Type: BLOOD SPECIMEN Ordering Facility: [facility] Address: [address] [place] [address] Performed By: #### 2 4323-8 #### [facility] CLIA [id number] [address] [place] Calcium [Mass/Vol] 9.5 mg/dL Normal 8.5-10.2 [facility] Comment on above: Order Comment: Speci men Type: BLOOD SPECIMEN Ordering Facility: [facility] Address: [address] [place] [address] Performed By: #### 2 4323-8 #### [facility] CLIA [id number] [address] Chloride [Moles/Vol] 104 mmol/L Normal 97-105 [facility] Comment on above: Order Comment: Spectrinity grimm Type: BLOOD SPECIMEN Ordering Facility: [facility] Address: [address] [place] [address] Performed By: #### 2 4323-8 #### [facility] CLIA [id number] [address] CO2 [Moles/Vol] 27 mmol/L Normal 22-30 [facility] Comment on above: Order Comment: Speci men Type: BLOOD SPECIMEN Ordering Facility: [facility] Address: [address] [place] [address] Performed By: #### 2 4323-8 #### [facility] CLIA [id number] [address] Creatinine [Mass/Vol] 0.82 mg/dL Normal 0.58-0.96 [facility] Comment on above: Order Comment: Speci men Type: BLOOD SPECIMEN Ordering Facility: [facility] Address: [address] [place] [address] Performed By: #### 2 4323-8 #### [facility] CLIA [id number] [address] Creatinine and Glomerular filtration rate.predicted panel (S/P/Bld) 82 mL/min/1.73m??? Normal >=60 [facility] Comment on above: Order Comment: Mónica grimm Type: BLOOD SPECIMEN Ordering Facility: [facility] Address: [address] [place] [address] Result Comment: Suki mated Glomerular Filtration Rate (eGFR) is calculated using the 2020 CKD-EPI creatinine equation. This equation utilizes serum creatinine, sex, and age as parameters. The creatinine assay has traceable calibration to isotope dilution-mass spectrometry. Refer to KDIGO guidelines for clinical interpretation. In patients with unstable renal function, e.g. those with acute kidney injury, the eGFR may not accurately reflect actual GFR. Performed By: #### 2 4323-8 #### [facility] CLIA [id number] [address] [place] [address] [place] Glucose [Mass/Vol] 92 mg/dL Normal 74-99 [facility] Comment on above: Order Comment: Mónica grimm Type: BLOOD SPECIMEN Ordering Facility: [facility] Address: [address] [place], [place] [id number] Result Comment: The [place] Diabetes [employer] (ADA) provides guidance for cutoff values for fasting glucose and random glucose. The ADA defines fasting as no caloric intake for at least 8 hours. Fasting plasma glucose results between 100 to 125 mg/dL indicate increased risk for diabetes (prediabetes). Fasting plasma glucose results greater than or equal to 126 mg/dL meet the criteria for diagnosis of diabetes. In the absence of unequivocal hyperglycemia, results should be confirmed by repeat testing. In a patient with classic symptoms of hyperglycemia or hyperglycemic crisis, random plasma glucose results greater than or equal to 200 mg/dL meet the criteria for diagnosis of diabetes. Reference: Standards of Medical Care in Diabetes 2016, [place] [employer] Association. Diabetes Care. 2016.39(Suppl 1). Performed By: #### 2 4323-8 #### [facility] CLIA [id number] [address] [place] [address] [place] Potassium [Moles/Vol] 3.8 mmol/L Normal 3.7-5.1 [facility] Comment on above: Order Comment: Mónica grimm Type: BLOOD SPECIMEN Ordering Facility: [facility] Address: [address] [place] [address] Performed By: #### 2 4323-8 #### [facility] CLIA [id number] [address] [place] [address] [place] Protein [Mass/Vol] 6.8 g/dL Normal 6.3-8.0 [facility] Comment on above: Order Comment: Mónica grimm Type: BLOOD SPECIMEN Ordering Facility: [facility] Address: [address] [place] [address] Performed By: #### 2 4323-8 #### [facility] CLIA [id number] [address] [place] [address] [place] Sodium [Moles/Vol] 141 mmol/L Normal 136-144 [facility] Comment on above: Order Comment: Mónica men Type: BLOOD SPECIMEN Ordering Facility: [facility] Address: [address] [place] [address] Performed By: #### 2 4323-8 #### [facility] CLIA [id number] [address] [place] [id number] [facility] Urea nitrogen [Mass/Vol] 10 mg/dL Normal 7- [facility] Comment on above: Order Comment: Speci men Type: BLOOD SPECIMEN Ordering Facility: [facility] Address: [address] [place] [id number] Performed By: #### 2 4323-8 #### [facility] CLIA [id number] [address] [place] [id number] [facility] [place] ED PROV NOTEon 03-19-2024 ED PROV NOTE HNO ID: [id number] Author: LON GRAHAM MD Service: ? Author Type: Physician Type: ED Provider Notes Filed: 03/20/2024 00:25 Note Text: ED Provider Note Patient Name: Zofia Sweeney : 1965 SERVICE DATE: 03/19/24 History Patient presents with: Abdominal Pain Diarrhea: Patient presents with complaints of abdominal pain, Diarrhea with blood in stool. Patient has had symptoms for several symptoms with worsening symptoms tonight. 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 Rectal Bleeding Quality: Bright red and maroon Duration: 3 months Timing: Intermittent Context: diarrhea Context: not anal fissures and not defecation Similar prior episodes: yes Relieved by: Nothing Worsened by: Nothing Ineffective treatments: None tried Associated symptoms: no abdominal pain, no dizziness, no epistaxis, no fever, no hematemesis and no light-headedness Risk factors: hx of IBD Risk factors: no anticoagulant use PAST MEDICAL HISTORY Diagnosis Date - Anxiety state, unspecified - Depressive disorder, not elsewhere classified - Osteoarthrosis, unspecified whether generalized or localized, other specified sites - Other forms of migraine 07/2005 - Ulcerative colitis, unspecified Ulcerative colitis PAST SURGICAL HISTORY Procedure Laterality Date - COLONOSCOPY FLX DX W/COLLJ SPEC WHEN PFRMD 12/20/2005 Colonoscopy - LIG/TRNSXJ FLP TUBE ABDL/VAG APPR UNI/BI 10/22/1984 Tubal ligation - PAST SURGICAL HISTORY OF left eye - multiple surgeries - muscles, ligaments - REPAIR ROTATOR CUFF,ACUTE Right - TONSILLECTOMY PRIMARY/SECONDARY AGE 10/> age 16 - TOTAL ABDOM HYSTERECTOMY FAMILY HISTORY Problem Relation Age of Onset - Cancer Mother ovarian, uterine, lung - Diabetes Mother - Hypertension Mother - Dementia Mother - Hypertension Father - Heart Father - Alzheimer's Disease Father - Heart Attack Father - Thyroid Sister Social History Tobacco Use - Smoking status: Every Day Packs/day: 0.50 Years: 10.00 Additional pack years: 0.00 Total pack years: 5.00 Types: Cigarettes - Smokeless tobacco: Never Vaping Use - Vaping Use: Never used Substance and Sexual Activity - Alcohol use: Not Currently Comment: occasionally - Drug use: Not Currently Types: Crack Cocaine Comment: pt report she quite july 2023 - Sexual activity: Not on file Comment: ALLERGIES Allergen Reactions - Vancomycin Other: See Comments Back gets hot if taken IV Review of Systems Constitutional: Negative for fever. HENT: Negative for nosebleeds. Gastrointestinal: Positive for hematochezia. Negative for abdominal pain and hematemesis. Neurological: Negative for dizziness and light-headedness. Physical Exam Vitals [03/19/248] BP Pulse Temp Temp src Resp SpO2 Weight Height 159/86 80 36.7 ?C (98 ?F) Oral 17 98 % 72 kg (158 lb 11.7 oz) 1.524 m (5') Physical Exam Vitals and nursing note reviewed. Constitutional: Appearance: She is well-developed. HENT: Head: Normocephalic and atraumatic. Right Ear: External ear normal. Left Ear: External ear normal. Nose: Nose normal. Eyes: General: Lids are normal. Lids are everted, no foreign bodies appreciated. Conjunctiva/sclera: Conjunctivae normal. Pupils: Pupils are equal, round, and reactive to light. Neck: Trachea: Trachea normal. Cardiovascular: Rate and Rhythm: Normal rate and regular rhythm. Heart sounds: Normal heart sounds. Pulmonary: Effort: Pulmonary effort is normal. Breath sounds: Normal breath sounds. Abdominal: General: Bowel sounds are normal. There is no distension. Palpations: Abdomen is soft. Tenderness: There is no abdominal tenderness. Musculoskeletal: General: Normal range of motion. Right shoulder: Normal. Left shoulder: Normal. Cervical back: Normal range of motion and neck supple. No deformity. Thoracic back: No deformity. Right ankle: Normal. Left ankle: Normal. Lymphadenopathy: Cervical: No cervical adenopathy. Skin: General: Skin is warm and dry. Neurological: Mental Status: She is alert and oriented to person, place, and time. GCS: GCS eye subscore is 4. GCS verbal subscore is 5. GCS motor subscore is 6. Cranial Nerves: No cranial nerve deficit. Sensory: No sensory deficit. Deep Tendon Reflexes: Reflexes are normal and symmetric. Psychiatric: Attention and Perception: Attention and perception normal. Diagnostic Testing ED Labs Ordered and Reviewed - No data to display Procedures ED Course / Clinical Impression Clinical Impressions as of 03/20/24 0026 Urinary tract infection without hematuria, site unspecified Ulcerative colitis with complication, unspecified location (HCC) Rectal bleeding Primary hypertension MDM / Disposition / Plan 58-year-old female 3 months ago started having some dysphagia she has a history of ulcerative colitis she thought at one point (more content not included)... Normal [facility] OCCULT BLD EXAM-DIAGon 03-19 OCCULT BLD EXAM-DIAG Positive Abnormal [facility] Comment on above: Performed By: #### O BDX #### [facility] CLIA [id number] [address] [place] [address] [place] PT panel Coag (PPP)on 2023 INR Coag (PPP) [Relative time] {INR} Low 0.9-1.3 [facility] Comment on above: Order Comment: Speci men Type: BLOOD SPECIMEN Ordering Facility: [facility] Address: [address] [place] [address] Result Comment: [facility].Result repeated. Vitamin K Antagonist (VKA) Therapeutic Range: INR 2 to 3 (Target INR of 2.5) Note: For patients treated with VKA drugs, such as warfarin, the [place] [employer] 2012 Guideline recommends a therapeutic INR range of 2 to 3 (target INR of 2.5). This recommendation includes high-risk patients with antiphospholipid syndrome with previous arterial or venous thromboembolism, current-generation mechanical or bioprosthetic aortic heart valve replacement. Note: Patients with mechanical aortic valve replacement and additional risk factors for thromboembolic events (atrial fibrillation, previous thromboembolism, LV dysfunction, hypercoagulable conditions) or an older generation mechanical AVR (i.e., ball in-Cage) or any mechanical MVR should have a INR therapeutic range of 2.5 to 3.5 (target INR of 3). Ed GH, et al. Chest 2012, 141:7S-47S Kristian RA, et al. [facility] 2017, 70: 252-289 Performed By: #### 1 4979-9, 09349-3 #### [facility] CLIA [id number] [address] [place] PT Coag (PPP) [Time] 9.9 s Normal 9.7-13.0 [facility] Comment on above: Order Comment: Speci men Type: BLOOD SPECIMEN Ordering Facility: [facility] Address: [address] [place] [address] Performed By: #### 1 4979-9, 85180-5 #### [facility] CLIA [id number] [address] Urinalysis complete panel (U )on 03-19-2024 Bilirubin Ql (U) Negative Normal Negative [facility] Comment on above: Order Comment: Speci men Type: URINE SPECIMEN Ordering Facility: [facility] Address: [address] [place] [address] Performed By: #### 2 4356-8 #### [facility] CLIA [id number] [address] STATES [facility] CLIA [id number] [address] [place] [address] [place] Clarity (Unsp spec) Slightly Cloudy Abnormal Clear [facility] Comment on above: Order Comment: Speci men Type: URINE SPECIMEN Ordering Facility: [facility] Address: [address] [place] [address] Performed By: #### 2 4356-8 #### [facility] CLIA [id number] [address] STATES [facility] CLIA [id number] [address] [place] [address] [place] Color (U) Yellow Normal Yellow [facility] Comment on above: Order Comment: Speci men Type: URINE SPECIMEN Ordering Facility: [facility] Address: [address] [place] [address] Performed By: #### 2 4356-8 #### [facility] CLIA [id number] [address] [place] [address] [facility] [place] [facility] CLIA [id number] [address] [place] [address] [place] Glucose Test strip (U) [Mass/Vol] Negative Normal Negative [facility] Comment on above: Order Comment: Speci men Type: URINE SPECIMEN Ordering Facility: [facility] Address: [address] [place] [address] Performed By: #### 2 4356-8 #### [facility] CLIA [id number] [address] LAB CLIA [id number] [address] [place] [address] [place] Hemoglobin Ql (U) 3+ Abnormal Negative [facility] Comment on above: Order Comment: Speci men Type: URINE SPECIMEN Ordering Facility: [facility] Address: [address] [place] [address] Performed By: #### 2 4356-8 #### [facility] CLIA [id number] [address] LAB CLIA [id number] [address] [place], [place] [address] [place] Ketones Ql (U) Negative Normal Negative [facility] Comment on above: Order Comment: Speci men Type: URINE SPECIMEN Ordering Facility: [facility] Address: [address] [place], [place] [address] Performed By: #### 2 4356-8 #### [facility] CLIA [id number] [address] [place] [address] [facility] [place] [facility] CLIA [id number] [address] [place], [place] [address] [place] Leukocyte esterase Test strip Ql (U) 3+ Abnormal Negative [facility] Comment on above: Order Comment: Speci men Type: URINE SPECIMEN Ordering Facility: [facility] Address: [address] [place] [address] Performed By: #### 2 4356-8 #### [facility] CLIA [id number] [address] [place] [address] [place] [facility] CLIA [id number] [address] [place] [address] [place] Nitrite Ql (U) Negative Normal Negative [facility] Comment on above: Order Comment: Speci men Type: URINE SPECIMEN Ordering Facility: [facility] Address: [address] [place] [address] Performed By: #### 2 4356-8 #### [facility] CLIA [id number] [address] [place] [address] [place] [facility] CLIA [id number] [address] [place] [address] [place] pH (U) 6.0 [pH] Normal 5.0-8.0 [facility] Comment on above: Order Comment: Speci men Type: URINE SPECIMEN Ordering Facility: [facility] Address: [address] [place] [address] Performed By: #### 2 4356-8 #### [facility] CLIA [id number] [address] [place] [address] [place] [facility] CLIA [id number] [address] [place] [address] [place] Protein (U) [Mass/Vol] Trace Abnormal Negative [facility] Comment on above: Order Comment: Speci men Type: URINE SPECIMEN Ordering Facility: [facility] Address: [address] [place] [address] Performed By: #### 2 4356-8 #### [facility] CLIA [id number] [address] [place] [address] [place] [facility] CLIA [id number] [address] [place] [address] [place] RBC LM.HPF (Urine sed) [#/Area] 11-25 /HPF Abnormal 0-3 /HPF [facility] Comment on above: Order Comment: Speci men Type: URINE SPECIMEN Ordering Facility: [facility] Address: [address] [place] [address] Performed By: #### 2 4356-8 #### [facility] CLIA [id number] [address] [place] [facility] CLIA [id number] [address] [place] [address] [place] Specific gravity (U) [Rel density] 1.010 Normal 1.005-1.030 [facility] Comment on above: Order Comment: Speci men Type: URINE SPECIMEN Ordering Facility: [facility] Address: [address] [place] [address] Performed By: #### 2 4356-8 #### [facility] CLIA [id number] [address] LAB CLIA [id number] [address] [place] [address] [place] Urobilinogen Ql (U) 0.2 EU/dL Normal 0.2-1.0 EU/dL [facility] Comment on above: Order Comment: Speci men Type: URINE SPECIMEN Ordering Facility: [facility] Address: [address] [place] [address] Performed By: #### 2 4356-8 #### [facility] CLIA [id number] [address] STATES OF [facility] CLIA [id number] [address] [place] [address] [place] WBC LM.HPF (Urine sed) [#/Area] 11-25 /HPF Abnormal 0-5 /HPF [facility] Comment on above: Order Comment: Speci men Type: URINE SPECIMEN Ordering Facility: [facility] Address: [address] [place] [address] Performed By: #### 2 4356-8 #### [facility] CLIA [id number] [address] [place] [facility] CLIA [id number] [address] [place] [address] [place] Urinalysis complete pnl Uron 03-19-2024 Urinalysis complete panel (U) COLOR: Yellow CLARITY: Slightly Cloudy GLUCOSE, URINE: Negative BILIRUBIN, URINE: Negative KETONES, URINE: Negative SPECIFIC GRAVITY, UR: 1.010 HEMOGLOBIN/BLOOD, UR: 3+ PH, URINE: 6.0 PROTEIN, URINE: Trace UROBILINOGEN: 0.2 EU/dL NITRITES: Negative LEUKEST: 3+ WBC, URINE: 11-25 /HPF RBC, URINE: 11-25 /HPF ORGANISM ID: 1 <10,000 CFU/ml Lactose positive gram negative bacilli Insignificant colony count. No further workup. Normal [facility] Comment on above: Order Comment: Speci men Type: URINE SPECIMEN Ordering Facility: [facility] Address: [address] [place] [address] Performed By: #### 2 4356-8 #### [facility] CLIA [id number] [address] [place] [address] [place] [facility] CLIA [id number] [address] [place] [address] [place] aPTT PPPon 03-19-2024 aPTT Coag (PPP) [Time] 23.6 s Normal 23.0-32.4 [facility] Comment on above: Order Comment: Speci men Type: BLOOD SPECIMEN Ordering Facility: [facility] Address: [address] [place] [address] Performed By: #### 1 4979-9, 31373-2 #### [facility] CLIA [id number] [address] [place] [address] [place] Basic metabolic 2000 panelon 02-28-2023 Anion gap [Moles/Vol] 17 mmol/L 10 - 2 0 mmol/L [facility] Calcium [Mass/Vol] 9.2 mg/dL 8.4 - 10. 2 mg/dL [facility] Chloride [Moles/Vol] 103 mmol/L 98 - 10 8 mmol/L [facility] Creatinine [Mass/Vol] 0.64 mg/dL 0.40 - 1.10 mg/dL [facility] GFR/1.73 sq M.predicted CKD-EPI (S/P/Bld) [Vol rate/Area] 102 - PINF [facility] Comment on above: Estimated GFR was ca lculated using the 2020 CKD-EPI creatinine equation. Glucose [Mass/Vol] 79 mg/dL 65 - 99 mg/dL [facility] HCO3 [Moles/Vol] 26 mmol/L 21 - 32 mmol/L [facility] Interpretation and review of laboratory results Abnormal [facility] Potassium [Moles/Vol] 4.5 mmol/L 3.5 - 5.1 mmol/L [facility] Sodium [Moles/Vol] 141 mmol/L 135 - 145 mmol/L [facility] Urea nitrogen [Mass/Vol] 24 mg/dL 8 - 25 mg/dL [facility] Urea nitrogen/Creatinine [Mass ratio] 37.5 mg/mg High 10.0 - 20.0 [facility] has implemented the eGFR calculation approach that does not have a coefficient for race that conforms to the NKF-ASN Task Force Recommendations. [facility] CBC Auto Differentialon 05-1 Basophils (Bld) [#/Vol] 0.11 10*3/uL [facility] Basophils/100 WBC (Bld) 1.8 % [facility] Eosinophils (Bld) [#/Vol] 0.15 10*3/uL [facility] Eosinophils/100 WBC (Bld) 2.5 % [facility] Erythrocyte distribution width (RBC) [Entitic vol] 14.1 % 11.6 - 14.8 % [facility] Hematocrit (Bld) [Volume fraction] 37.8 % 36.0 - 46.0 % [facility] Hemoglobin (Bld) [Mass/Vol] 12.0 g/dL 12.0 - 16.0 g/dL [facility] Immature granulocytes (Bld) [#/Vol] 0.02 10*3/uL [facility] Immature granulocytes/100 WBC (Bld) 0.30 % [facility] Comment on above: The IG parameter is the percentage of metamyelocytes, myelocytes and promyelocytes. An immature granulocyte count (IG) of 1% or more suggests the possibility of infection, an IG count of 3% is very likely related to an infection. Interpretation and review of laboratory results Abnormal [facility] Lymphocytes (Bld) [#/Vol] 1.89 10*3/uL [facility] Lymphocytes/100 WBC (Bld) 31.3 % [facility] MCH (RBC) [Entitic mass] 28.0 pg 26.0 - 34.0 pg [facility] MCHC (RBC) [Mass/Vol] 31.7 g/dL 31.0 - 37.0 g/dL [facility] MCV (RBC) [Entitic vol] 88.1 fL 80.0 - 100.0 fL [facility] Monocytes (Bld) [#/Vol] 0.88 10*3/uL [facility] Monocytes/100 WBC (Bld) 14.6 % [facility] Neutrophils (Bld) [#/Vol] 2.99 10*3/uL [facility] Neutrophils/100 WBC (Bld) 49.5 % [facility] Nucleated RBC (Bld) [#/Vol] 0.00 10*3/uL [facility] Nucleated RBC/100 WBC (Bld) [Ratio] 0.0 % [facility] Platelet mean volume (Bld) [Entitic vol] 9.4 fL 9.4 - 12.4 fL [facility] Platelets (Bld) [#/Vol] 442 10*3/uL High [facility] RBC (Bld) [#/Vol] 4.29 10*6/uL [facility] WBC (Bld) [#/Vol] 6.04 10*3/uL [facility] Comprehensive metabolic 2000 panelon 11-20-2022 Albumin [Mass/Vol] 4.4 g/dL 3.2 - 5.2 g/dL [facility] ALP [Catalytic activity/Vol] 53 U/L 40 - 150 U/L [facility] ALT [Catalytic activity/Vol] 15 U/L 0 - 40 U/L [facility] Anion gap [Moles/Vol] 15 mmol/L 10 - 2 0 mmol/L [facility] AST [Catalytic activity/Vol] 16 U/L 0 - 45 U/L [facility] Bilirubin [Mass/Vol] mg/dL 0.0 - 1 .3 mg/dL [facility] Calcium [Mass/Vol] 10.0 mg/dL 8.4 - 10. 2 mg/dL [facility] Chloride [Moles/Vol] 105 mmol/L 98 - 10 8 mmol/L [facility] Creatinine [Mass/Vol] 0.77 mg/dL 0.40 - 1.10 mg/dL [facility] GFR/1.73 sq M.predicted CKD-EPI (S/P/Bld) [Vol rate/Area] 89 - PINF [facility] Comment on above: Estimated GFR was ca lculated using the 2020 CKD-EPI creatinine equation. Glucose [Mass/Vol] 90 mg/dL 65 - 99 mg/dL [facility] HCO3 [Moles/Vol] 29 mmol/L 21 - 32 mmol/L [facility] Interpretation and review of laboratory results Abnormal [facility] Potassium [Moles/Vol] 5.7 mmol/L High 3.5 - 5.1 mmol/L [facility] Protein [Mass/Vol] 5.9 g/dL Low 6.0 - 8.0 g/dL [facility] Sodium [Moles/Vol] 143 mmol/L 135 - 145 mmol/L [facility] Urea nitrogen [Mass/Vol] 17 mg/dL 8 - 25 mg/dL [facility] Urea nitrogen/Creatinine [Mass ratio] 22.1 mg/mg High 10.0 - 20.0 [facility] has implemented the eGFR calculation approach that does not have a coefficient for race that conforms to the NKF-ASN Task Force Recommendations. [facility] HbA1c (Bld) [Mass fraction]o n 11-20-2022 Average glucose Estimated from glycated hemoglobin (Bld) [Mass/Vol] 114 mg/dL 74 - 114 mg/dL [facility] Interpretation and review of laboratory results Normal [facility] Normal: 4.2% - 5.6% Increased risk for diabetes: 5.7% - 6.4% Diabetes: >= 6.5% Pediatrics: No established reference range Estimated average glucose: 74-114 mg/dL [facility] - Hematology and Cell countson 11-20-2022 HbA1c (Bld) [Mass fraction] 5.6 % 4.2 - 5.6 % [facility] Lipid 1996 panelon 3 Cholesterol [Mass/Vol] 197 mg/dL 100 - 199 mg/dL [facility] Cholesterol in HDL [Mass/Vol] 82 mg/dL 40 - 59 mg/dL [facility] Cholesterol in LDL [Mass/Vol] 103 mg/dL 10 - 130 mg/dL [facility] Comment on above: National Cholesterol Education Program Guidelines: LDL Cholesterol Optimal: <100 mg/dL Near Optimal/above Optimal: 100-129 mg/dL Borderline High: 130-159 mg/dL High: 160-189 mg/dL Very High: greater than or equal to 190 mg/dL Cholesterol non HDL [Mass/Vol] 115 mg/dL [facility] Comment on above: National Cholesterol Education Program Guidelines: NON HDL Cholesterol Desirable: <130 mg/dL Borderline High: 130-159 mg/dL High: 160-189 mg/dL Very High: > or = 190 mg/dL Cholesterol.total/Armida sterol in HDL [Mass ratio] 2.4 {ratio} ratio [facility] Comment on above: Female Cholesterol/H DL Ratio: Average risk: 4.4 1/2 average risk: 3.3 2 x average risk: 7.1 Triglyceride [Mass/Vol] 62 mg/dL 30 - 150 mg/dL [facility] No Panel Informationon 11-20 [facility] MR SHOULDER RIGHT WITHOUT CO NTRASTon 05-12-2022 MR SHOULDER RIGHT WITHOUT CONTRAST EXAMINATION: MR SHOULDER RIGHT WITHOUT CONTRAST HISTORY: ORDERING SYSTEM PROVIDED HISTORY: Shoulder pain, rotator cuff disorder suspected, xray done, TECHNOLOGIST PROVIDED HISTORY: Injury/Trauma Reason for exam: Shoulder pain, rotator cuff disorder suspected, xray done, Weakness of shoulder Encounter Type: Initial Mechanism of injury: Shoulder pain, rotator cuff disorder suspected, Weakness of shoulder for 8 months now ORDERING SYSTEM PROVIDED DIAGNOSIS CODES: R29.898 Weakness of shoulder COMPARISON: None. TECHNIQUE: Axial proton density fat saturation, coronal T1, coronal proton density, coronal T2 fat saturation, sagittal proton density and sagittal T2 sequences of the affected shoulder were performed on 1.5 Hilda magnet without IV contrast. FINDINGS: There is significant motion artifact which degrades quality. There is a hgwovdpj-hp-etaif full-thickness rupture of the supraspinatus tendon with tendon retraction measuring 2.7 cm from the greater tuberosity. See image 11, coronal T2 fat sat sequence. Prominent bursal fluid noted. No muscle atrophy at this time. Mild AC joint arthropathy. No significant glenohumeral joint arthrosis. No evidence of full-thickness biceps tendon tear. Mild biceps tendon sheath fluid seen. No fracture. IMPRESSION: There is a nwvllpdf-ai-xavni full-thickness rupture of the supraspinatus tendon with tendon retraction measuring 2.7 cm from the greater tuberosity. /f Workstation ID: [id number] Dictated by: DARIEL TUBBS on SunMay 15, 2022 7:34:35 AM EDT Transcribed by: BERTHA GAITAN on SunMay 15, 2022 7:50:48 AM EDT Finalized by: DARIEL TUBBS on SunMay 15, 2022 10:08:13 AM EDT [facility] Comment on above: Order Comment: Injur y/Trauma or Illness?:Injury/Trauma How long have you had these symptoms (acute/chronic)?:Acute Reason for exam?:Shoulder pain, rotator cuff disorder suspected, xray done, Weakness of shoulder Type of Exam?:Initial Mechanism of injury?:Shoulder pain, rotator cuff disorder suspected, Weakness of shoulder for 8 months now COVID-19/INFLUENZA A,B GOKUL Andressabrendon 10-07-2021 SARS-CoV-2 (COVID-19) Ab IA Ql SARS-COV-2 RNA (HANS): Not Detected INFLUENZA A (HANS): Not Detected INFLUENZA B (HANS): Not Detected Normal Not Detected [facility] Comment on above: Order Comment: This test was performed under the FDA's Emergency Use Authorization (EUA). Testing was performed using the Pam SARS-CoV-2 RT-PCR AND Influenza A/B assay on the Hans Pam 6800 System. This test has not been approved for use in asymptomatic patients and its performance in this patient population has not been evaluated. Negative results do not rule out the presence of SARS-CoV-2/COVID-19, influenza A, and/or influenza B. Fact sheets for this EUA can be found at the following links: For Healthcare Providers: https://www.fda.gov/media/132032/download ?? For Patients: https://www.fda.gov/media/412166/download Performed By: #### L [id number] #### [facility] [address] [place] [address] Marcial An M.D. [id number] Influenza virus A and B and SARS-CoV-2 (COVID-19) and SARS-related CoV RNA panel ANGELIQUE+probe (Resp)Ordered By: Brittani Bae on 10-07-2021 Influenza A Not detected Not Detected [facility] Influenza B Not detected Not Detected [facility] Interpretation and review of laboratory results Normal [facility] SARS-CoV-2 (COVID-19) RNA ANGELIQUE+probe Ql (Resp) Not detected Not Detected [facility] This test was performed under the FDA's Emergency Use Authorization (EUA). Testing was performed using the Pam SARS-CoV-2 RT-PCR & Influenza A/B assay on the Hans Pam 6800 System. This test has not been approved for use in asymptomatic patients and its performance in this patient population has not been evaluated. Negative results do not rule out the presence of SARS-CoV-2/COVID-19, influenza A, and/or influenza B. Fact sheets for this EUA can be found at the following links: For Healthcare Providers: https://www.fda.gov/m edia/075300/download For Patients: https://www.fda.gov/m edia/874036/download [facility] CBC,PLATELETSon 05-04-2021 Hematocrit (Bld) [Volume fraction] 41.5 % Normal 34.9-44.3 [facility] Comment on above: Performed By: #### H [facility] [place] #### [facility] (DEFAULT) [address] [address] Hemoglobin (Bld) [Mass/Vol] 12.8 g/dL Normal 11.4-15.2 [facility] Comment on above: Performed By: #### H EMOGC #### [facility] (DEFAULT) [address] [address] MCV (RBC) [Entitic vol] 91.0 fL Normal 79.6-97.7 [facility] Comment on above: Performed By: #### H EMOGC #### [facility] (DEFAULT) [address] [address] Mean Cell Hgb 28.1 pg Normal 25.9-33.9 [facility] Comment on above: Performed By: #### H EMOGC #### [facility] (DEFAULT) [address] [address] Mean Cell Hgb Conc 30.8 g/dL Low 31.4-35.9 [facility] Comment on above: Performed By: #### H EMOGC #### [facility] (DEFAULT) [address] [address] Platelet mean volume (Bld) [Entitic vol] 9.0 fL Normal 8.5-12.2 [facility] Comment on above: Performed By: #### H EMOGC #### [facility] (DEFAULT) [address] [place] [address] Platelets (Bld) [#/Vol] 540 10*3/uL High 150-393 [facility] Comment on above: Performed By: #### H EMOGC #### [facility] (DEFAULT) [address] [place] [address] RBC (Bld) [#/Vol] 4.56 10*6/uL Normal 3.91-5.04 [facility] Comment on above: Performed By: #### H EMOGC #### [facility] (DEFAULT) [address] [place] [address] RBC Distribution 14.7 % Normal 10.8-14.9 [facility] Comment on above: Performed By: #### H EMOGC #### [facility] (DEFAULT) [address] [place] [address] WBC (Bld) [#/Vol] 8.78 10*3/uL Normal 3.99-11.19 [facility] Comment on above: Performed By: #### H EMOGC #### [facility] (DEFAULT) [address] [place] [address] COVID-19, MOLECULARon 2020 SARS-CoV-2 (COVID-19) RNA ANGELIQUE+probe Ql (Unsp spec) Not detected Normal Not Detected [facility] Comment on above: Result Comment: This test was performed under the FDA's Emergency Use Authorization (EUA). Testing was performed using the Pam SARS-CoV-2 RT-PCR assay on the Hans Pam 6800 System. This test has not been approved for use in asymptomatic patients and its performance in this patient population has not been evaluated. Negative results do not rule out the presence of SARS-CoV-2/COVID-19. Fact sheets for this EUA can be found at the following links: For Healthcare Providers: https://www.fda.gov/media/457139/download For Patients: https://www.fda.gov/media/183661/download Performed By: #### L [id number] #### [facility] [address] [address] Marcial An M.D. [id number] HbA1c (Bld) [Mass fraction]O rdered By: Thaddeus Lynn on 05-02-2021 Average glucose Estimated from glycated hemoglobin (Bld) [Mass/Vol] 123 mg/dL High 74 - 114 mg/dL [facility] Interpretation and review of laboratory results Abnormal [facility] Normal: 4.2% - 5.6% Increased risk for diabetes: 5.7% - 6.4% Diabetes: >= 6.5% Pediatrics: No established reference range Estimated average glucose: 74-114 mg/dL [facility] Hemoglobin [id number] By: Christiano Lynn on 05-02-2021 HbA1c (Bld) [Mass fraction] 5.9 % High 4.2 - 5.6 % [facility] TISSUE TRANSGLUTAMINASE, IGA Ordered By: Madhuri Whatley on 04-26-2021 tTG IgA Qn (S) <1.2 U/mL [facility] Interpretation Ranges: < 4.0 U/ml = Negative 4.0 - 10.0 U/ml = Weak Positive >10.0 U/ml = Positive [facility] HIV 1/2 SCREEN ( GENERATI ON)Ordered By: Madhuri Whatley on 04-24-2021 HIV 1+2 Ab+HIV1 p24 Ag IA Ql Negative Negative [facility] Interpretation and review of laboratory results Normal [facility] This assay screens for the presence of HIV-1, HIV-2 antibodies and for the presence of HIV-1 antigen. Test performed using Hans PAM immunoassay system [facility] CRP, InflammationOrdered By: Madhuri Whatley on 04-23-2021 CRP [Mass/Vol] 27.0 mg/L High 0.0 - 10.0 mg/L [facility] Comprehensive metabolic 2000 panelOrdered By: Madhuri Whatley on 04-23-2021 Albumin [Mass/Vol] 3.4 g/dL 3.2 - 5.2 g/dL [facility] [facility] ALP [Catalytic activity/Vol] 69 U/L 40 - 150 U/L [facility] ALT [Catalytic activity/Vol] 14 U/L 0 - 40 U/L [facility] Anion gap [Moles/Vol] 15 mmol/L 10 - 2 0 mmol/L [facility] AST [Catalytic activity/Vol] 15 U/L 0 - 45 U/L [facility] Bilirubin [Mass/Vol] mg/dL 0.0 - 1 .3 mg/dL [facility] Calcium [Mass/Vol] 8.9 mg/dL 8.4 - 10. 2 mg/dL [facility] Chloride [Moles/Vol] 104 mmol/L 98 - 10 8 mmol/L [facility] Creatinine [Mass/Vol] 0.72 mg/dL 0.40 - 1.10 [facility] GFR/1.73 sq M.predicted CKD-EPI (S/P/Bld) [Vol rate/Area] 93 >=60 mL/min/1.73 m2 [facility] Glucose [Mass/Vol] 147 mg/dL High 65 - 99 mg/dL [facility] HCO3 [Moles/Vol] 26 mmol/L 21 - 32 mmol/L [facility] Potassium [Moles/Vol] 4.2 mmol/L 3.5 - 5.1 mmol/L [facility] Protein [Mass/Vol] 5.0 g/dL Low 6.0 - 8.0 g/dL [facility] Sodium [Moles/Vol] 141 mmol/L 135 - 145 mmol/L [facility] Urea nitrogen [Mass/Vol] 9 mg/dL 8 - 25 mg/dL [facility] Urea nitrogen/Creatinine [Mass ratio] 12.5 mg/mg [facility] The eGFR should be used for monitoring renal function only and not for medication dosing. [facility] ESR Westergren method (Bld) [Velocity]Ordered By: Madhuri Whatley on 04-23-2021 ESR (Bld) [Velocity] 7 mm/h [facility] Interpretation and review of laboratory results Normal [facility] Lactate [Moles/Vol]Ordered B y: Madhuri Whatley on 04-23-2021 Interpretation and review of laboratory results Abnormal [facility] Lactic Acid, PlasmaOrdered B y: Madhuri Whatley on 04-23-2021 Lactate [Moles/Vol] 3.0 mmol/L High 0.6 - 2. 0 mmol/L [facility] LipaseOrdered By: Madhuri givens on 04-23-2021 Lipase [Catalytic activity/Vol] 49 U/L 15 - 65 U/L [facility] Lipase [Catalytic activity/V ol]Ordered By: Madhuri Whatley on 04-23-2021 Interpretation and review of laboratory results Normal [facility] No Panel InformationOrdered By: Madhuri Whatley on 04-23-2021 Interpretation and review of laboratory results Abnormal [facility] CT ABDOMEN PELVIS WITH CONTR ASTOrdered By: Madhuri Whatley on 04-22-2021 1. Featureless appearance of the colon with very subtle questionable bowel wall thickening involving some portions of the transverse and descending colon is nonspecific, though some residual inflammatory or infectious colitis would be difficult to exclude. No pneumatosis or free intraperitoneal air identified. 2. No bowel obstruction. The appendix is normal. 3. Stable small left hepatic lobe cyst. [employer]ristine.ioT/ServiceTitan Workstation ID: [id number] [facility] EXAMINATION: CT ABDOMEN PELVIS WITH CONTRAST, 04/22/2021 COMPARISON: CT scan of the abdomen and pelvis, 03/01/2021. 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 3 mm coronal and sagittal MPR reconstructions performed through the abdomen and pelvis. Dose reduction techniques were achieved by using automated exposure control and/or adjustment of mA and/or kV according to patient size and/or use of iterative reconstruction technique. FINDINGS: ABDOMINAL CT SCAN FINDINGS: Lung bases are clear. Visualized heart is normal in size with no pericardial effusion. Low-attenuation lesion seen posteriorly in the lateral segment left hepatic lobe measuring 1.5 x 1.2 cm with Hounsfield unit measurement of 6 corresponds to a stable cyst. Remaining solid organs and gallbladder are unremarkable in appearance. Slight featureless appearance of the colon with very subtle bowel wall thickening suspected in areas of the transverse colon and descending colon. Some submucosal fatty infiltration also seen from the cecum to the mid transverse colon is nonspecific. No pneumatosis or free intraperitoneal air. PELVIC CT FINDINGS: The uterus and urinary bladder have a normal appearance. The appendix is normal (image number 34, series 601). No acute osseous abnormality. Degenerative disc disease again seen at L5-S1. [facility] Interface, Rad In Fuji Speechq - 04/22/2021 8:38 PM EDT EXAMINATION: CT ABDOMEN PELVIS WITH CONTRAST, 04/22/2021 COMPARISON: CT scan of the abdomen and pelvis, 03/01/2021. 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 3 mm coronal and sagittal MPR reconstructions performed through the abdomen and pelvis. Dose reduction techniques were achieved by using automated exposure control and/or adjustment of mA and/or kV according to patient size and/or use of iterative reconstruction technique. FINDINGS: ABDOMINAL CT SCAN FINDINGS: Lung bases are clear. Visualized heart is normal in size with no pericardial effusion. Low-attenuation lesion seen posteriorly in the lateral segment left hepatic lobe measuring 1.5 x 1.2 cm with Hounsfield unit measurement of 6 corresponds to a stable cyst. Remaining solid organs and gallbladder are unremarkable in appearance. Slight featureless appearance of the colon with very subtle bowel wall thickening suspected in areas of the transverse colon and descending colon. Some submucosal fatty infiltration also seen from the cecum to the mid transverse colon is nonspecific. No pneumatosis or free intraperitoneal air. PELVIC CT FINDINGS: The uterus and urinary bladder have a normal appearance. The appendix is normal (image number 34, series 601). No acute osseous abnormality. Degenerative disc disease again seen at L5-S1. IMPRESSION: 1. Featureless appearance of the colon with very subtle questionable bowel wall thickening involving some portions of the transverse and descending colon is nonspecific, though some residual inflammatory or infectious colitis would be difficult to exclude. No pneumatosis or free intraperitoneal air identified. 2. No bowel obstruction. The appendix is normal. 3. Stable small left hepatic lobe cyst. GJT/GoNabits Workstation ID: [id number] [facility] CBC AND ELECTRONIC DIFFon Abs Baso Auto Normal [facility] Comment on above: Performed By: #### L [id number] #### [facility] (DEFAULT) [address] [place] [id number] Abs Eos Auto Normal [facility] Comment on above: Performed By: #### L [id number] #### [facility] (DEFAULT) [address] [place] [address] 26070 Abs Lymph Auto Normal [facility] Comment on above: Performed By: #### L [id number] #### [facility] (DEFAULT) [address] [place] [address] 47721 Abs [place] Auto Normal [facility] Comment on above: Performed By: #### L [id number] #### [facility] (DEFAULT) [address] [place] [address] 32961 Basophil % Auto Normal [facility] Comment on above: Performed By: #### L [id number] #### [facility] (DEFAULT) [address] [place] [address] 34789 Eosinophil % Auto Normal [facility] Comment on above: Performed By: #### L [id number] #### [facility] (DEFAULT) [address] [place] [address]23 Hematocrit (Bld) [Volume fraction] 43.2 % Normal 34.9-44.3 [facility] Comment on above: Performed By: #### L [id number] #### [facility] (DEFAULT) [address] [place] [address]017 Hemoglobin (Bld) [Mass/Vol] 13.8 g/dL Normal 11.4-15.2 [facility] Comment on above: Performed By: #### L [id number] #### [facility] (DEFAULT) [address] [address] Immature Grans % Normal [facility] Comment on above: Performed By: #### L [id number] #### [facility] (DEFAULT) [address] [place] [address]160 Immature Grans Absolute Normal [facility] Comment on above: Performed By: #### L [id number] #### [facility] (DEFAULT) [address] [place] [address] 00154 Lymphocyte % Auto Normal [facility] Comment on above: Performed By: #### L [id number] #### [facility] (DEFAULT) [address] [place] [address] 41939 MCV (RBC) [Entitic vol] 88.2 fL Normal 79.6-97.7 [facility] Comment on above: Performed By: #### L [id number] #### [facility] (DEFAULT) [address] [place] [address] 51715 Mean Cell Hgb 28.2 pg Normal 25.9-33.9 [facility] Comment on above: Performed By: #### L [id number] #### [facility] (DEFAULT) [address] [address] Mean Cell Hgb Conc 31.9 g/dL Normal 31.4-35.9 [facility] Comment on above: Performed By: #### L [id number] #### [facility] (DEFAULT) [address] [address] Monocyte % Auto Normal [facility] Comment on above: Performed By: #### L [id number] #### [facility] (DEFAULT) [address] [place] [address] 39579 Platelet mean volume (Bld) [Entitic vol] 9.9 fL Normal 8.5-12.2 [facility] Comment on above: Performed By: #### L [id number] #### [facility] (DEFAULT) [address] [address] Platelets (Bld) [#/Vol] 461 10*3/uL High 150-393 [facility] Comment on above: Performed By: #### L [id number] #### [facility] (DEFAULT) [address] [address] RBC (Bld) [#/Vol] 4.90 10*6/uL Normal 3.91-5.04 [facility] Comment on above: Performed By: #### L [id number] #### [facility] (DEFAULT) [address] [place] [address] 99944 RBC Distribution 14.0 % Normal 10.8-14.9 [facility] Comment on above: Performed By: #### L [id number] #### [facility] (DEFAULT) [address] [place] [address] 15103 Segs + Bands Auto Normal [facility] Comment on above: Performed By: #### L [id number] #### [facility] (DEFAULT) [address] [place] [address] 31078 Segs + Bands,Absolute Auto Normal [facility] Comment on above: Performed By: #### L [id number] #### [facility] (DEFAULT) [address] [place] [address]502 WBC (Bld) [#/Vol] 18.72 10*3/uL High 3.99-11.19 [facility] Comment on above: Performed By: #### L [id number] #### [facility] (DEFAULT) [address] [place] [address] 38885 CHEM 6 (LYTES, BUN CREA)on 0 04-21-2021 Anion gap [Moles/Vol] 10 mmol/L Normal 7-17 [facility] Comment on above: Performed By: #### C HM6, MGO #### [facility] (DEFAULT) [address] [place] [address] 19008 Chloride [Moles/Vol] 106 mmol/L Normal 98-108 [facility] Comment on above: Performed By: #### C HM6, MGO #### [facility] (DEFAULT) [address] [place] [address] 64648 CO2 [Moles/Vol] 29 mmol/L Normal 22-30 [facility] Comment on above: Performed By: #### C HM6, MGO #### [facility] (DEFAULT) [address] [place] [address] 35676 Creatinine [Mass/Vol] 0.71 mg/dL Normal 0.50-1.20 [facility] Comment on above: Performed By: #### C HM6, MGO #### [facility] (DEFAULT) [address] [place] [address] 79086 EST GFR, >=60 Normal >=60 [facility] Comment on above: Performed By: #### C HM6, MGO #### [facility] (DEFAULT) [address] [place] [address] 43527 EST GFR,Non >=60 Normal >=60 [facility] Comment on above: Performed By: #### C HM6, MGO #### [facility] (DEFAULT) [address] [place] [address] 11886 Potassium [Moles/Vol] 4.3 mmol/L Normal 3.5-5.0 [facility] Comment on above: Performed By: #### C HM6, MGO #### [facility] (DEFAULT) [address] [place] [address] 88095 Sodium [Moles/Vol] 141 mmol/L Normal 133-143 [facility] Comment on above: Performed By: #### C HM6, MGO #### [facility] (DEFAULT) [address] [place] [address]386 Urea nitrogen [Mass/Vol] 14 mg/dL Normal 7-22 [facility] Comment on above: Performed By: #### C HM6, MGO #### [facility] (DEFAULT) [address] [place] [address] 09339 Urea nitrogen/Creatinine [Mass ratio] 20 mg/mg Normal [facility] Comment on above: Performed By: #### C HM6, MGO #### [facility] (DEFAULT) [address] [place] [address] MAGNESIUMon 04-21-2021 Magnesium [Mass/Vol] 2.0 mg/dL Normal 1.6-2.6 [facility] Comment on above: Performed By: #### C HM6, MGO #### [facility] (DEFAULT) [address] [address] TOXICOLOGY DRUG SCREEN, SERU 04-21-2021 Barbiturates Negative Normal Cutoff: 1000 ng/mL [facility] Comment on above: Order Comment: For M edical Purposes Only. Nonforensic screen results are considered presumptive and no confirmatory testing will follow. Drugs are detected by immunoassay or Liquid Chromatography Mass Spectrometry (LC-MS/MS). The LC-MS/MS test was developed and its performance characteristics determined by the Toxicology Laboratory at [facility]. It has not been cleared or approved by the FDA. The laboratory is regulated under CLIA as qualified to perform high-complexity testing. This test is used for clinical purposes and should not be regarded as investigational or for research. The following drugs with their lowest level of detection in ng/ml(LOD) are included in this screen: 6 Monoacetylmorphine(300),7 Aminoflunitrazepam(25),7 Aminoclonazepam(50),7 hydroxymitragynine(100),Alphahydroxymidazolam (200), Alphahydrozyalprazolam(200), Alprazolam(50), Amitriptyline(50), Amphetamine(250), Atenolol(500), Benzoylecgonine(50), Buprenorphine(100), Bupropion(25),Caffeine(12999),Chlordiazepoxide(50), Chlorpheniramine(100), Chlorpromazine(50), Citalopram(100), Clonazepam(200), Cocaine(25),Codeine(200), Cotinine(500),Desipramine(50), Desmethyldoxepin(100), Dextromethorphan(100),Diazepam(100),Dihydrocodeine(100),Diltaz em(50),Diphenhydramine(100),Doxepin(100),EDDP/methadone(100), Ephedrine/Pseudoephedrine(100),Fentanyl(25),Flunitrazepam(100) ,Fluoxetine(200), Flurazepam(50),Gabapentin(1500), Haloperidol(25), Hydrocodone(100), Hydromorphone(200), Imipramine(50), Ketamine(25), Lidocaine(25),Lorazepam(100), Lysergide(LSD)(25),Maprotiline(200),MDA(250),MDMA(250),Meperid ine(50),Midazolam (200),Methadone(50), Methamphetamine(500), Methylphenidate(50), Metoprolol(50), Morphine(200),Nalbuphine(50), Naloxone(200), Norbuprenorphine(300), Nordiazepam(100), Norfentanyl(50),Noroxycodone (100), Norpropoxyphene(50), Nortriptyline(50),Olanzapine(200),Oxazepam(200),Oxycodone(100) ,Oxymorphone(200), Phencyclidine(PCP)(25), Pheniramine(25), Pregabalin(1500), Promethazine(50), Propoxyphene(100), Propanolol(50), Quetiapine(25), Quinidine(500), Ranitidine(500), Risperidone(100), Sertraline(50),Temazepam(100), Thioridazine(100), Tramadol(50), Trazodone(25), Triazolam(100), Trifluoperazine (100),Venlafaxine(50), Verapamil(100), Zolpidem(200) Performed By: #### S ERDRG #### [facility] (DEFAULT) [address] [place] [address] Drugs Detected Abnormal Negative [facility] Comment on above: Order Comment: For M edical Purposes Only. Nonforensic screen results are considered presumptive and no confirmatory testing will follow. Drugs are detected by immunoassay or Liquid Chromatography Mass Spectrometry (LC-MS/MS). The LC-MS/MS test was developed and its performance characteristics determined by the Toxicology Laboratory at [facility]. It has not been cleared or approved by the FDA. The laboratory is regulated under CLIA as qualified to perform high-complexity testing. This test is used for clinical purposes and should not be regarded as investigational or for research. The following drugs with their lowest level of detection in ng/ml(LOD) are included in this screen: 6 Monoacetylmorphine(300),7 Aminoflunitrazepam(25),7 Aminoclonazepam(50),7 hydroxymitragynine(100),Alphahydroxymidazolam (200), Alphahydrozyalprazolam(200), Alprazolam(50), Amitriptyline(50), Amphetamine(250), Atenolol(500), Benzoylecgonine(50), Buprenorphine(100), Bupropion(25),Caffeine(79298),Chlordiazepoxide(50), Chlorpheniramine(100), Chlorpromazine(50), Citalopram(100), Clonazepam(200), Cocaine(25),Codeine(200), Cotinine(500),Desipramine(50), Desmethyldoxepin(100), Dextromethorphan(100),Diazepam(100),Dihydrocodeine(100),Diltaz em(50),Diphenhydramine(100),Doxepin(100),EDDP/methadone(100), Ephedrine/Pseudoephedrine(100),Fentanyl(25),Flunitrazepam(100) ,Fluoxetine(200), Flurazepam(50),Gabapentin(1500), Haloperidol(25), Hydrocodone(100), Hydromorphone(200), Imipramine(50), Ketamine(25), Lidocaine(25),Lorazepam(100), Lysergide(LSD)(25),Maprotiline(200),MDA(250),MDMA(250),Meperid ine(50),Midazolam (200),Methadone(50), Methamphetamine(500), Methylphenidate(50), Metoprolol(50), Morphine(200),Nalbuphine(50), Naloxone(200), Norbuprenorphine(300), Nordiazepam(100), Norfentanyl(50),Noroxycodone (100), Norpropoxyphene(50), Nortriptyline(50),Olanzapine(200),Oxazepam(200),Oxycodone(100) ,Oxymorphone(200), Phencyclidine(PCP)(25), Pheniramine(25), Pregabalin(1500), Promethazine(50), Propoxyphene(100), Propanolol(50), Quetiapine(25), Quinidine(500), Ranitidine(500), Risperidone(100), Sertraline(50),Temazepam(100), Thioridazine(100), Tramadol(50), Trazodone(25), Triazolam(100), Trifluoperazine (100),Venlafaxine(50), Verapamil(100), Zolpidem(200) Result Comment: Augustus pentin Tramadol Trazodone Performed By: #### S ERDRG #### [facility] ([facility]) [address] [place] [address] Gastrointestinal pathogens D NA and RNA panel ANGELIQUE+non-probe (Stl)Ordered By: Thaddeus Lynn on 04-18-2021 Stool/GI PCR Panel Comment Repeat testing for the Stool/GI PCR Panel not indicated within 28 days [facility] Results of PCR testing for stool pathogens must be taken into clinical context when making treatment decisions. Most gastrointestinal infections due to common bacterial and viral causes are self-limited in nature and do not require antimicrobial therapy. The use of antimicrobial therapy must be carefully weighed against unintended and potentially harmful consequences. The role of antimicrobial therapy depends on the implicated pathogen. In general, antimicrobial agents are only used to treat parasitic infections as well as select bacterial infections. [facility] Comprehensive metabolic 2000 panelOrdered By: Thaddeus Lynn on 04-14-2021 Albumin [Mass/Vol] 4.2 g/dL 3.2 - 5.2 g/dL [facility] ALP [Catalytic activity/Vol] 72 U/L 40 - 150 U/L [facility] ALT [Catalytic activity/Vol] 45 U/L High 0 - 40 U/L [facility] Anion gap [Moles/Vol] 17 mmol/L 10 - 2 0 mmol/L [facility] AST [Catalytic activity/Vol] 54 U/L High 0 - 45 U/L [facility] Bilirubin [Mass/Vol] mg/dL 0.0 - 1 .3 mg/dL [facility] Calcium [Mass/Vol] 9.2 mg/dL 8.4 - 10. 2 mg/dL [facility] Chloride [Moles/Vol] 102 mmol/L 98 - 10 8 mmol/L [facility] Creatinine [Mass/Vol] 0.54 mg/dL 0.40 - 1.10 [facility] GFR/1.73 sq M.predicted CKD-EPI (S/P/Bld) [Vol rate/Area] 105 >=60 mL/min/1.73 m2 [facility] Glucose [Mass/Vol] 110 mg/dL High 65 - 99 mg/dL [facility] HCO3 [Moles/Vol] 25 mmol/L 21 - 32 mmol/L [facility] Interpretation and review of laboratory results Abnormal [facility] Potassium [Moles/Vol] 3.9 mmol/L 3.5 - 5.1 mmol/L [facility] Protein [Mass/Vol] 6.1 g/dL 6.0 - 8.0 g/dL [facility] Sodium [Moles/Vol] 140 mmol/L 135 - 145 mmol/L [facility] Urea nitrogen [Mass/Vol] 10 mg/dL 8 - 25 mg/dL [facility] Urea nitrogen/Creatinine [Mass ratio] 18.5 mg/mg [facility] The eGFR should be used for monitoring renal function only and not for medication dosing. [facility] Laboratory - Chemistry and C hemistry - challengeOrdered By: Thaddeus Lynn on 04-14-2021 Lipase [Catalytic activity/Vol] 20 U/L 15 - 65 U/L [facility] Bilirubin Ql (U) Small Abnormal Negative [facility] th Glucose Ql (U) Negative Normal, Negative mg/dL [facility] Ketones Ql (U) 40 Abnormal Negative mg/dL [facility] pH (U) 5.5 [pH] [facility] Specific gravity (U) [Rel density] 1.030 Abnormal [facility] Urobilinogen Qn (U) 0.2 mg/dL <2.0, 0. 2, Normal, Negative, 1.0, 2.0, <1.0 [facility] Laboratory - Hematology and Cell countsOrdered By: Thaddeus Lynn on 04-14-2021 Basophils (Bld) [#/Vol] 0.08 10*3/uL [facility] Basophils/100 WBC (Bld) 0.5 % [facility] Eosinophils (Bld) [#/Vol] 0.03 10*3/uL [facility] Eosinophils/100 WBC (Bld) 0.2 % [facility] Erythrocyte distribution width (RBC) [Entitic vol] 14.5 % 11.6 - 14.8 % [facility] Hematocrit (Bld) [Volume fraction] 38.9 % 36.0 - 46.0 % [facility] Hemoglobin (Bld) [Mass/Vol] 12.3 g/dL 12.0 - 16.0 g/dL [facility] Immature granulocytes (Bld) [#/Vol] 0.05 10*3/uL [facility] Immature granulocytes/100 WBC (Bld) 0.30 % [facility] Comment on above: The IG parameter is the percentage of metamyelocytes, myelocytes and promyelocytes. An immature granulocyte count (IG) of 1% or more suggests the possibility of infection, an IG count of 3% is very likely related to an infection. Lymphocytes (Bld) [#/Vol] 1.45 10*3/uL [facility] Lymphocytes/100 WBC (Bld) 9.6 % [facility] MCH (RBC) [Entitic mass] 28.1 pg 26.0 - 34.0 pg [facility] MCHC (RBC) [Mass/Vol] 31.6 g/dL 31.0 - 37.0 g/dL [facility] MCV (RBC) [Entitic vol] 88.8 fL 80.0 - 100.0 fL [facility] Monocytes (Bld) [#/Vol] 1.69 10*3/uL High [facility] Monocytes/100 WBC (Bld) 11.2 % [facility] Neutrophils (Bld) [#/Vol] 11.77 10*3/uL High [facility] Neutrophils/100 WBC (Bld) 78.2 % [facility] Nucleated RBC (Bld) [#/Vol] 0.00 10*3/uL [facility] Nucleated RBC/100 WBC (Bld) [Ratio] 0.0 % [facility] Platelet mean volume (Bld) [Entitic vol] 9.7 fL 9.4 - 12.4 fL [facility] Platelets (Bld) [#/Vol] 410 10*3/uL High [facility] RBC (Bld) [#/Vol] 4.38 10*6/uL [facility]alth WBC (Bld) [#/Vol] 15.07 10*3/uL High [facility] Hemoglobin Ql (U) Trace Abnormal Negative [facility] Laboratory - UrinalysisOrder ed By: Thaddeus Lynn on 04-14-2021 Nitrite Ql (U) Negative Negative [facility] Lipase [Catalytic activity/V ol]Ordered By: Thaddeus Lynn on 04-14-2021 Interpretation and review of laboratory results Normal [facility] No Panel InformationOrdered By: Thaddeus Lynn on 04-14-2021 Interpretation and review of laboratory results Abnormal [facility] POC Urinalysis Dipstick, Aut oOrdered By: Thaddeus Lynn on 04-14-2021 Interpretation and review of laboratory results Abnormal [facility] Leukocyte esterase Test strip Ql (U) Negative Negative [facility] Protein Ql (U) 30 Abnormal Negative mg/dL [facility] Comprehensive metabolic 2000 panelOrdered By: Thaddeus Lynn on 03-28-2021 Albumin [Mass/Vol] 4.8 g/dL 3.2 - 5.2 g/dL [facility] ALP [Catalytic activity/Vol] 76 U/L 40 - 150 U/L [facility] ALT [Catalytic activity/Vol] 31 U/L 0 - 40 U/L [facility] Anion gap [Moles/Vol] 16 mmol/L 10 - 2 0 mmol/L [facility] AST [Catalytic activity/Vol] 22 U/L 0 - 45 U/L [facility] Bilirubin [Mass/Vol] mg/dL 0.0 - 1 .3 mg/dL [facility] Calcium [Mass/Vol] 10.3 mg/dL High 8.4 - 10. 2 mg/dL [facility] Chloride [Moles/Vol] 101 mmol/L 98 - 10 8 mmol/L [facility] Creatinine [Mass/Vol] 0.82 mg/dL 0.40 - 1.10 [facility] GFR/1.73 sq M.predicted CKD-EPI (S/P/Bld) [Vol rate/Area] 80 >=60 mL/min/1.73 m2 [facility] Glucose [Mass/Vol] 94 mg/dL 65 - 99 mg/dL [facility] HCO3 [Moles/Vol] 27 mmol/L 21 - 32 mmol/L [facility] Interpretation and review of laboratory results Abnormal [facility] Potassium [Moles/Vol] 4.9 mmol/L 3.5 - 5.1 mmol/L [facility] Protein [Mass/Vol] 6.7 g/dL 6.0 - 8.0 g/dL [facility] Sodium [Moles/Vol] 139 mmol/L 135 - 145 mmol/L [facility] Urea nitrogen [Mass/Vol] 19 mg/dL 8 - 25 mg/dL [facility] Urea nitrogen/Creatinine [Mass ratio] 23.2 mg/mg High [facility] The eGFR should be used for monitoring renal function only and not for medication dosing. [facility] Gastrointestinal pathogens D NA and RNA panel ANGELIQUE+non-probe (Stl)Ordered By: Thaddeus Lynn on 03-28-2021 Adenovirus 40+41 DNA ANGELIQUE+non-probe Ql (Stl) Not detected Not Detected [facility] Astrovirus subtypes 1-8 RNA ANGELIQUE+non-probe Ql (Stl) Not detected Not Detected [facility] C. cayetanensis DNA ANGELIQUE+non-probe Ql (Stl) Not detected Not Detected [facility] C. coli+jejuni+upsaliensis DNA ANGELIQUE+non-probe Ql (Stl) Not detected Not Detected [facility] C. difficile toxin A+B tcdA+tcdB genes ANGELIQUE+non-probe Ql (Stl) Not detected Not Detected [facility] Cryptosporidium sp DNA ANGELIQUE+non-probe Ql (Stl) Not detected Not Detected [facility] E. coli enteroaggregative Hawa plasmid aggR+aatA genes ANGELIQUE+non-probe Ql (Stl) Not detected Not Detected [facility] E. coli enteropathogenic eae gene ANGELIQUE+non-probe Ql (Stl) Not detected Not Detected [facility] E. coli enterotoxigenic ltA+st1a+st1b genes ANGELIQUE+non-probe Ql (Stl) Not detected Not Detected [facility] E. coli stx1+stx2 genes ANGELIQUE+non-probe Ql (Stl) Not detected Not Detected [facility] E. histolytica DNA ANGELIQUE+non-probe Ql (Stl) Not detected Not Detected [facility] G. lamblia DNA ANGELIQUE+non-probe Ql (Stl) Not detected Not Detected [facility] Interpretation and review of laboratory results Normal [facility] Norovirus genogroup I+II RNA ANGELIQUE+non-probe Ql (Stl) Not detected Not Detected [facility] P. shigelloides DNA ANGELIQUE+non-probe Ql (Stl) Not detected Not Detected [facility] Rotavirus A RNA ANGELIQUE+non-probe Ql (Stl) Not detected Not Detected [facility] S. enterica+bongori DNA ANGELIQUE+non-probe Ql (Stl) Not detected Not Detected [facility] Sapovirus genogroups I+II+IV+V RNA ANGELIQUE+non-probe Ql (Stl) Not detected Not Detected [facility] Shigella species+EIEC invasion plasmid antigen H ipaH gene ANGELIQUE+non-probe Ql (Stl) Not detected Not Detected [facility] V. cholerae DNA ANGELIQUE+non-probe Ql (Stl) Not detected Not Detected [facility] V. cholerae+parahaemolytic us+vulnificus DNA ANGELIQUE+non-probe Ql (Stl) Not detected Not Detected [facility] Y. enterocolitica DNA ANGELIQUE+non-probe Ql (Stl) Not detected Not Detected [facility] Results of PCR testing for stool pathogens must be taken into clinical context when making treatment decisions. Most gastrointestinal infections due to common bacterial and viral causes are self-limited in nature and do not require antimicrobial therapy. The use of antimicrobial therapy must be carefully weighed against unintended and potentially harmful consequences. The role of antimicrobial therapy depends on the implicated pathogen. In general, antimicrobial agents are only used to treat parasitic infections as well as select bacterial infections. [facility] Laboratory - Chemistry and C hemistry - challengeOrdered By: Thaddeus Lynn on 03-28-2021 Lipase [Catalytic activity/Vol] 44 U/L 15 - 65 U/L [facility] Lipase [Catalytic activity/V ol]Ordered By: Thaddeus Lynn on 03-28-2021 Interpretation and review of laboratory results Normal [facility] No Panel InformationOrdered By: Thaddeus Lynn on 03-28-2021 [facility] Basic metabolic 2000 panelOr dered By: Nicholas Agosto on 03-22-2021 Anion gap [Moles/Vol] 13 mmol/L 10 - 2 0 mmol/L [facility] Calcium [Mass/Vol] 9.9 mg/dL 8.4 - 10. 2 mg/dL [facility] Chloride [Moles/Vol] 103 mmol/L 98 - 10 8 mmol/L [facility] Creatinine [Mass/Vol] 0.74 mg/dL 0.40 - 1.10 [facility] GFR/1.73 sq M.predicted CKD-EPI (S/P/Bld) [Vol rate/Area] 90 >=60 mL/min/1.73 m2 [facility] Glucose [Mass/Vol] 94 mg/dL 65 - 99 mg/dL [facility] HCO3 [Moles/Vol] 28 mmol/L 21 - 32 mmol/L [facility] Interpretation and review of laboratory results Normal [facility] Potassium [Moles/Vol] 4.4 mmol/L 3.5 - 5.1 mmol/L [facility] Sodium [Moles/Vol] 140 mmol/L 135 - 145 mmol/L [facility] Urea nitrogen [Mass/Vol] 12 mg/dL 8 - 25 mg/dL [facility] Urea nitrogen/Creatinine [Mass ratio] 16.2 mg/mg [facility] The eGFR should be used for monitoring renal function only and not for medication dosing. [facility] CBC WITH AUTO DIFFERENTIALOr dered By: Nicholas Agosto on 03-22-2021 Basophils (Bld) [#/Vol] 0.11 10*3/uL [facility] Basophils/100 WBC (Bld) 1.3 % [facility] Eosinophils (Bld) [#/Vol] 0.23 10*3/uL [facility] Eosinophils/100 WBC (Bld) 2.7 % [facility] Erythrocyte distribution width (RBC) [Entitic vol] 13.7 % 11.6 - 14.8 % [facility] Hematocrit (Bld) [Volume fraction] 42.0 % 36.0 - 46.0 % [facility] Hemoglobin (Bld) [Mass/Vol] 13.6 g/dL 12.0 - 16.0 g/dL [facility] Immature granulocytes (Bld) [#/Vol] 0.03 10*3/uL [facility] Immature granulocytes/100 WBC (Bld) 0.40 % [facility] Comment on above: The IG parameter is the percentage of metamyelocytes, myelocytes and promyelocytes. An immature granulocyte count (IG) of 1% or more suggests the possibility of infection, an IG count of 3% is very likely related to an infection. Interpretation and review of laboratory results Abnormal [facility] Lymphocytes (Bld) [#/Vol] 2.91 10*3/uL [facility] Lymphocytes/100 WBC (Bld) 34.1 % [facility] MCH (RBC) [Entitic mass] 28.8 pg 26.0 - 34.0 pg [facility] MCHC (RBC) [Mass/Vol] 32.4 g/dL 31.0 - 37.0 g/dL [facility] MCV (RBC) [Entitic vol] 89.0 fL 80.0 - 100.0 fL [facility] Monocytes (Bld) [#/Vol] 0.91 10*3/uL High [facility] Monocytes/100 WBC (Bld) 10.7 % [facility] Neutrophils (Bld) [#/Vol] 4.34 10*3/uL [facility] Neutrophils/100 WBC (Bld) 50.8 % [facility] Nucleated RBC (Bld) [#/Vol] 0.00 10*3/uL [facility] Nucleated RBC/100 WBC (Bld) [Ratio] 0.0 % [facility] Platelet mean volume (Bld) [Entitic vol] 9.6 fL 9.4 - 12.4 fL [facility] Platelets (Bld) [#/Vol] 538 10*3/uL [facility] RBC (Bld) [#/Vol] 4.72 10*6/uL [facility] WBC (Bld) [#/Vol] 8.53 10*3/uL [facility] CT PULMONARY ARTERIESOrdered By: Nicholas Current on 03-22-2021 1. No acute PE is identified. Main pulmonary artery and thoracic aorta normal caliber size. 2. Minimal bibasilar atelectasis. 3. Left hepatic lobe cyst. GJT/Bloxr Workstation ID: [id number] [facility] EXAMINATION: CT SCAN OF THE CHEST WITH CONTRAST FOR CT PULMONARY ANGIOGRAPHY 03/22/2021 COMPARISON: None. HISTORY: Dx: M54.6 (Acute left-sided thoracic back pain) Injury/Trauma or Illness?:Illness/Othe r How long have you had these symptoms (acute/chronic)?:Acut e PE suspected, high pretest prob TECHNIQUE: 2.5 mm axial images performed through the chest following the intravenous administration of 75 mL of Isovue-370. 3 mm sagittal and coronal MPR reconstructions. 10 mm coronal and sagittal MIP (maximum intensity projection) CTA reconstructions performed through the chest. Dose reduction techniques were achieved by using automated exposure control and/or adjustment of mA and/or kV according to patient size and/or use of iterative reconstruction technique. FINDINGS: No acute PE is identified. Main pulmonary artery and thoracic aorta are normal caliber size. Normal heart size with no pericardial effusion. No significant adenopathy. Minimal subpleural atelectasis seen in the posterior lung bases bilaterally. Visualized upper abdomen demonstrates a 1.3 cm cyst in the lateral segment of left hepatic lobe with Hounsfield unit measurement of 2. No acute osseous abnormality. Some mild degenerative changes of the [id number]-np-egcvd thoracic spine. [facility] Interface, Rad In Fuji Speechq - 03/22/2021 10:55 PM EDT EXAMINATION: CT SCAN OF THE CHEST WITH CONTRAST FOR CT PULMONARY ANGIOGRAPHY 03/22/2021 COMPARISON: None. HISTORY: Dx: M54.6 (Acute left-sided thoracic back pain) Injury/Trauma or Illness?:Illness/Othe r How long have you had these symptoms (acute/chronic)?:Acut e PE suspected, high pretest prob TECHNIQUE: 2.5 mm axial images performed through the chest following the intravenous administration of 75 mL of Isovue-370. 3 mm sagittal and coronal MPR reconstructions. 10 mm coronal and sagittal MIP (maximum intensity projection) CTA reconstructions performed through the chest. Dose reduction techniques were achieved by using automated exposure control and/or adjustment of mA and/or kV according to patient size and/or use of iterative reconstruction technique. FINDINGS: No acute PE is identified. Main pulmonary artery and thoracic aorta are normal caliber size. Normal heart size with no pericardial effusion. No significant adenopathy. Minimal subpleural atelectasis seen in the posterior lung bases bilaterally. Visualized upper abdomen demonstrates a 1.3 cm cyst in the lateral segment of left hepatic lobe with Hounsfield unit measurement of 2. No acute osseous abnormality. Some mild degenerative changes of the fyc-yz-bodhb thoracic spine. IMPRESSION: 1. No acute PE is identified. Main pulmonary artery and thoracic aorta normal caliber size. 2. Minimal bibasilar atelectasis. 3. Left hepatic lobe cyst. GJT/mkv Workstation ID: [id number] [facility] ECG 12-LEADOrdered By: Chico Mchugh on 03-22-2021 Noreen Velazco 03/22/2021 7:53 PM EKG 12-lead Date/Time: 03/22/2021 7:47 PM Performed by: Chico Mchugh MD Authorized by: Chico Mchugh MD Interpreted by ED attending physician Comparison: compared with previous ECG from 07/15/2013 Rhythm: sinus rhythm BPM: 61 Conduction: conduction normal ST Segments: ST segments normal Comments: S1 Q3 T3 pattern. [facility] Hepatic function 2000 panelO rdered By: Nicholas Agosto on 03-22-2021 Albumin [Mass/Vol] 4.2 g/dL 3.2 - 5.2 g/dL [facility] ALP [Catalytic activity/Vol] 71 U/L 40 - 150 U/L [facility] ALT [Catalytic activity/Vol] 25 U/L 0 - 40 U/L [facility] AST [Catalytic activity/Vol] 22 U/L 0 - 45 U/L [facility] Bilirubin [Mass/Vol] mg/dL 0.0 - 1 .3 mg/dL [facility] Bilirubin.conjugated [Mass/Vol] mg/dL 0.0 - 0.4 mg/dL [facility] Interpretation and review of laboratory results Normal [facility] Protein [Mass/Vol] 6.5 g/dL 6.0 - 8.0 g/dL [facility] LipaseOrdered By: Nicholas amezcua on 03-22-2021 Lipase [Catalytic activity/Vol] 47 U/L 15 - 65 U/L [facility] Lipase [Catalytic activity/V ol]Ordered By: Nicholas Agosto on 03-22-2021 Interpretation and review of laboratory results Normal [facility] [place] TopOrdered By: Thomas Agosto on 03-22-2021 Extra Tube Hold for add-ons. [facility] Comment on above: Auto resulted. [facility] No Panel InformationOrdered By: Nicholas Agosto on 03-22-2021 Extra Tube Hold for add-ons. [facility] Comment on above: Auto resulted. [facility] Extra Tube Hold for add-ons. [facility] Comment on above: Auto resulted. [facility] TROPONINOrdered By: Nicholas Allan rrent on 03-22-2021 Troponin T 6 ng/L <=14 [facility] Troponin T Interpretation Normal [facility] URINALYSISOrdered By: Chico cobb on 03-22-2021 Bacteria Auto Ql (U) None Seen None Se en /hpf [facility] Clarity Refractometry automated (U) Clear Clear [facility] Color (U) Colorless Colorless, Yellow [facility] Glucose Auto test strip (U) [Mass/Vol] Negative Negative mg/dL [facility] Ketones (U) [Mass/Vol] Negative Negat ellis mg/dL [facility] Leukocyte esterase Auto test strip Ql (U) Negative Negative [facility] pH (U) 7.0 [pH] [facility] Specific gravity (U) [Rel density] 1.003 Low [facility] UrinalysisOrdered By: Chico cobb on 03-22-2021 Bilirubin Ql (U) Negative Negative [facility] th Epithelial cells.squamous Auto (Urine sed) [#/Area] <1 [facility] Hemoglobin Auto test strip Ql (U) Negative Negative [facility] Interpretation and review of laboratory results Abnormal [facility] Mucus Auto (Urine sed) [#/Area] Rare None Seen, Rare /lpf [facility] Nitrite Auto test strip Ql (U) Negative Negative [facility] Protein (U) [Mass/Vol] Negative Negat ellis mg/dL [facility] RBC Auto (Urine sed) [#/Area] <1 [facility] Urobilinogen (U) [Mass/Vol] mg/dL <2.0 mg/dL [facility] Microscopic examination is performed on all urinalysis samples and only positive findings are reported. The test for blood on the chemical analytic portion of urinalysis may also be positive due to hemoglobinuria and myoglobinuria and if red blood cells are present they are quantified by microscopic examination. [facility] CBC panel Auto (Bld)Ordered By: Josh Riley on 03-05-2021 Erythrocyte distribution width (RBC) [Entitic vol] 13.3 % 11.6 - 14.8 % [facility] Hematocrit (Bld) [Volume fraction] 40.4 % 36.0 - 46.0 % [facility] Hemoglobin (Bld) [Mass/Vol] 13.0 g/dL 12.0 - 16.0 g/dL [facility] Interpretation and review of laboratory results Abnormal [facility] MCH (RBC) [Entitic mass] 28.3 pg 26.0 - 34.0 pg [facility] MCHC (RBC) [Mass/Vol] 32.2 g/dL 31.0 - 37.0 g/dL [facility] MCV (RBC) [Entitic vol] 88.0 fL 80.0 - 100.0 fL [facility] Nucleated RBC (Bld) [#/Vol] 0.00 10*3/uL [facility] Nucleated RBC/100 WBC (Bld) [Ratio] 0.0 % [facility] Platelet mean volume (Bld) [Entitic vol] 9.7 fL 9.4 - 12.4 fL [facility] Platelets (Bld) [#/Vol] 432 10*3/uL High [facility] RBC (Bld) [#/Vol] 4.59 10*6/uL [facility] WBC (Bld) [#/Vol] 6.53 10*3/uL [facility] Basic metabolic 1998 panelOr dered By: Gena Mcpherson on 03-03-2021 Anion gap [Moles/Vol] 12 mmol/L 10 - 2 0 mmol/L [facility] Chloride [Moles/Vol] 105 mmol/L 98 - 10 8 mmol/L [facility] Creatinine [Mass/Vol] 0.56 mg/dL 0.40 - 1.10 [facility] GFR/1.73 sq M.predicted CKD-EPI (S/P/Bld) [Vol rate/Area] 104 >=60 mL/min/1.73 m2 [facility] Glucose [Mass/Vol] 99 mg/dL 65 - 99 mg/dL [facility] HCO3 [Moles/Vol] 26 mmol/L 21 - 32 mmol/L [facility] Interpretation and review of laboratory results Abnormal [facility] Potassium [Moles/Vol] 3.9 mmol/L 3.5 - 5.1 mmol/L [facility] Sodium [Moles/Vol] 139 mmol/L 135 - 145 mmol/L [facility] Urea nitrogen [Mass/Vol] 12 mg/dL 8 - 25 mg/dL [facility] Urea nitrogen/Creatinine [Mass ratio] 21.4 mg/mg High [facility] The eGFR should be used for monitoring renal function only and not for medication dosing. [facility] CBC panel Auto (Bld)Ordered By: Gena Mcpherson on 03-03-2021 Erythrocyte distribution width (RBC) [Entitic vol] 13.2 % 11.6 - 14.8 % [facility] Hematocrit (Bld) [Volume fraction] 39.9 % 36.0 - 46.0 % [facility] Hemoglobin (Bld) [Mass/Vol] 12.8 g/dL 12.0 - 16.0 g/dL [facility] MCH (RBC) [Entitic mass] 27.9 pg 26.0 - 34.0 pg [facility] MCHC (RBC) [Mass/Vol] 32.1 g/dL 31.0 - 37.0 g/dL [facility] MCV (RBC) [Entitic vol] 87.1 fL 80.0 - 100.0 fL [facility] Nucleated RBC (Bld) [#/Vol] 0.00 10*3/uL [facility] Nucleated RBC/100 WBC (Bld) [Ratio] 0.0 % [facility] Platelet mean volume (Bld) [Entitic vol] 9.5 fL 9.4 - 12.4 fL [facility] Platelets (Bld) [#/Vol] 400 10*3/uL [facility] RBC (Bld) [#/Vol] 4.58 10*6/uL [facility] WBC (Bld) [#/Vol] 7.38 10*3/uL [facility] Basic metabolic 2000 panelOr dered By: Josh Riley on 03-02-2021 Anion gap [Moles/Vol] 13 mmol/L 10 - 2 0 mmol/L [facility] Calcium [Mass/Vol] 9.1 mg/dL 8.4 - 10. 2 mg/dL [facility] Chloride [Moles/Vol] 108 mmol/L 98 - 10 8 mmol/L [facility] Creatinine [Mass/Vol] 0.53 mg/dL 0.40 - 1.10 [facility] GFR/1.73 sq M.predicted CKD-EPI (S/P/Bld) [Vol rate/Area] 106 >=60 mL/min/1.73 m2 [facility] Glucose [Mass/Vol] 96 mg/dL 65 - 99 mg/dL [facility] HCO3 [Moles/Vol] 26 mmol/L 21 - 32 mmol/L [facility] Interpretation and review of laboratory results Abnormal [facility] Potassium [Moles/Vol] 4.5 mmol/L 3.5 - 5.1 mmol/L [facility] Sodium [Moles/Vol] 142 mmol/L 135 - 145 mmol/L [facility] Urea nitrogen [Mass/Vol] 14 mg/dL 8 - 25 mg/dL [facility] Urea nitrogen/Creatinine [Mass ratio] 26.4 mg/mg High [facility] The eGFR should be used for monitoring renal function only and not for medication dosing. [facility] CBC panel Auto (Bld)Ordered By: Josh Riley on 03-02-2021 Erythrocyte distribution width (RBC) [Entitic vol] 13.4 % 11.6 - 14.8 % [facility] Hematocrit (Bld) [Volume fraction] 38.2 % 36.0 - 46.0 % [facility] Hemoglobin (Bld) [Mass/Vol] 12.3 g/dL 12.0 - 16.0 g/dL [facility] Interpretation and review of laboratory results Abnormal [facility] MCH (RBC) [Entitic mass] 28.1 pg 26.0 - 34.0 pg [facility] MCHC (RBC) [Mass/Vol] 32.2 g/dL 31.0 - 37.0 g/dL [facility] MCV (RBC) [Entitic vol] 87.4 fL 80.0 - 100.0 fL [facility] Nucleated RBC (Bld) [#/Vol] 0.00 10*3/uL [facility] Nucleated RBC/100 WBC (Bld) [Ratio] 0.0 % [facility] Platelet mean volume (Bld) [Entitic vol] 9.8 fL 9.4 - 12.4 fL [facility] Platelets (Bld) [#/Vol] 396 10*3/uL [facility] RBC (Bld) [#/Vol] 4.37 10*6/uL [facility] ealt WBC (Bld) [#/Vol] 11.07 10*3/uL [facility] Gastrointestinal pathogens D NA and RNA panel ANGELIQUE+non-probe (Stl)Ordered By: Josh Riley on 03-02-2021 Adenovirus 40+41 DNA ANGELIQUE+non-probe Ql (Stl) Not detected Not Detected [facility] Astrovirus subtypes 1-8 RNA ANGELIQUE+non-probe Ql (Stl) Not detected Not Detected [facility] C. cayetanensis DNA ANGELIQUE+non-probe Ql (Stl) Not detected Not Detected [facility] C. coli+jejuni+upsaliensis DNA ANGELIQUE+non-probe Ql (Stl) Not detected Not Detected [facility] C. difficile toxin A+B tcdA+tcdB genes ANGELIQUE+non-probe Ql (Stl) Detected Abnormal Not Detected [facility] Comment on above: Toxigenic C. diffici le detected in stool. Correlation of test results with patient clinical symptoms is suggested. Young children <3 years of age have an asymptomatic carriage rate as high as 40%. NOTE: C.dif is highly contagious and inpatients should be in contact plus isolation. Outpatients should use robust hand-washing and contact precautions until symptoms subside. Cryptosporidium sp DNA ANGELIQUE+non-probe Ql (Stl) Not detected Not Detected [facility] E. coli enteroaggregative Hawa plasmid aggR+aatA genes ANGELIQUE+non-probe Ql (Stl) Not detected Not Detected [facility] E. coli enteropathogenic eae gene ANGELIQUE+non-probe Ql (Stl) Not detected Not Detected [facility] E. coli enterotoxigenic ltA+st1a+st1b genes ANGELIQUE+non-probe Ql (Stl) Not detected Not Detected [facility] E. coli stx1+stx2 genes ANGELIQUE+non-probe Ql (Stl) Not detected Not Detected [facility] E. histolytica DNA ANGELIQUE+non-probe Ql (Stl) Not detected Not Detected [facility] G. lamblia DNA ANGELIQUE+non-probe Ql (Stl) Not detected Not Detected [facility] Interpretation and review of laboratory results Abnormal [facility] Norovirus genogroup I+II RNA ANGELIQUE+non-probe Ql (Stl) Not detected Not Detected [facility] P. shigelloides DNA ANGELIQUE+non-probe Ql (Stl) Not detected Not Detected [facility] Rotavirus A RNA ANGELIQUE+non-probe Ql (Stl) Not detected Not Detected [facility] S. enterica+bongori DNA ANGELIQUE+non-probe Ql (Stl) Not detected Not Detected [facility] Sapovirus genogroups I+II+IV+V RNA ANGELIQUE+non-probe Ql (Stl) Not detected Not Detected [facility] Shigella species+EIEC invasion plasmid antigen H ipaH gene ANGELIQUE+non-probe Ql (Stl) Not detected Not Detected [facility] V. cholerae DNA ANGELIQUE+non-probe Ql (Stl) Not detected Not Detected [facility] V. cholerae+parahaemolytic us+vulnificus DNA ANGELIQUE+non-probe Ql (Stl) Not detected Not Detected [facility] Y. enterocolitica DNA ANGELIQUE+non-probe Ql (Stl) Not detected Not Detected [facility] Results of PCR testing for stool pathogens must be taken into clinical context when making treatment decisions. Most gastrointestinal infections due to common bacterial and viral causes are self-limited in nature and do not require antimicrobial therapy. The use of antimicrobial therapy must be carefully weighed against unintended and potentially harmful consequences. The role of antimicrobial therapy depends on the implicated pathogen. In general, antimicrobial agents are only used to treat parasitic infections as well as select bacterial infections. [facility] Basic metabolic 2000 panelOr dered By: Jennifer Lentz on 03-01-2021 Anion gap [Moles/Vol] 14 mmol/L 10 - 2 0 mmol/L [facility] Calcium [Mass/Vol] 9.8 mg/dL 8.4 - 10. 2 mg/dL [facility] Chloride [Moles/Vol] 104 mmol/L 98 - 10 8 mmol/L [facility] Creatinine [Mass/Vol] 0.64 mg/dL 0.40 - 1.10 [facility] GFR/1.73 sq M.predicted CKD-EPI (S/P/Bld) [Vol rate/Area] 99 >=60 mL/min/1.73 m2 [facility] Glucose [Mass/Vol] 94 mg/dL 65 - 99 mg/dL [facility] HCO3 [Moles/Vol] 27 mmol/L 21 - 32 mmol/L [facility] Potassium [Moles/Vol] 4.0 mmol/L 3.5 - 5.1 mmol/L [facility] Sodium [Moles/Vol] 141 mmol/L 135 - 145 mmol/L [facility] Urea nitrogen [Mass/Vol] 9 mg/dL 8 - 25 mg/dL [facility] Urea nitrogen/Creatinine [Mass ratio] 14.1 mg/mg [facility] The eGFR should be used for monitoring renal function only and not for medication dosing. [facility] CBC WITH AUTO DIFFERENTIALOr dered By: Jennifer Lentz on 03-01-2021 Basophils (Bld) [#/Vol] 0.08 10*3/uL [facility] Basophils/100 WBC (Bld) 1.1 % [facility] Eosinophils (Bld) [#/Vol] 0.17 10*3/uL [facility] Eosinophils/100 WBC (Bld) 2.2 % [facility] Erythrocyte distribution width (RBC) [Entitic vol] 13.4 % 11.6 - 14.8 % [facility] Hematocrit (Bld) [Volume fraction] 42.6 % 36.0 - 46.0 % [facility] Hemoglobin (Bld) [Mass/Vol] 13.8 g/dL 12.0 - 16.0 g/dL [facility] Immature granulocytes (Bld) [#/Vol] 0.09 10*3/uL [facility] Immature granulocytes/100 WBC (Bld) 1.20 % [facility] Comment on above: The IG parameter is the percentage of metamyelocytes, myelocytes and promyelocytes. An immature granulocyte count (IG) of 1% or more suggests the possibility of infection, an IG count of 3% is very likely related to an infection. Interpretation and review of laboratory results Abnormal [facility] Lymphocytes (Bld) [#/Vol] 2.41 10*3/uL [facility] Lymphocytes/100 WBC (Bld) 31.8 % [facility] MCH (RBC) [Entitic mass] 28.3 pg 26.0 - 34.0 pg [facility] MCHC (RBC) [Mass/Vol] 32.4 g/dL 31.0 - 37.0 g/dL [facility] MCV (RBC) [Entitic vol] 87.5 fL 80.0 - 100.0 fL [facility] Monocytes (Bld) [#/Vol] 0.74 10*3/uL [facility] Monocytes/100 WBC (Bld) 9.7 % [facility] Neutrophils (Bld) [#/Vol] 4.10 10*3/uL [facility] Neutrophils/100 WBC (Bld) 54.0 % [facility] Nucleated RBC (Bld) [#/Vol] 0.00 10*3/uL [facility] Nucleated RBC/100 WBC (Bld) [Ratio] 0.0 % [facility] Platelet mean volume (Bld) [Entitic vol] 9.7 fL 9.4 - 12.4 fL [facility] Platelets (Bld) [#/Vol] 430 10*3/uL High [facility] RBC (Bld) [#/Vol] 4.87 10*6/uL [facility] WBC (Bld) [#/Vol] 7.59 10*3/uL [facility] COVID-19/INFLUENZA A,B MOLEC ARon 03-01-2021 SARS-CoV-2 (COVID-19) Ab IA Ql SARS-COV-2 (ISABELLA): Not Detected INFLUENZA A (ISABELLA): Not Detected INFLUENZA B (ISABELLA): Not Detected Normal Not Detected [facility] Comment on above: Order Comment: This test was performed under the FDA's Emergency Use Authorization (EUA). Testing was performed using the Hans Pam SARS-CoV-2 RT-PCR AND Influenza A/B Nucleic Acid Test on the Pam Isabella System. This test has not been approved for use in asymptomatic patients and its performance in this patient population has not been evaluated. Negative results do not rule out the presence of SARS-CoV-2, influenza A, and/or influenza B. Fact sheets for the EUA can be found at the following links: For Healthcare Providers: https://www.fda.gov/media/706986/download For Patients: https://www.fda.gov/media/690148/download Performed By: #### L [id number] #### [facility] [address] [place] [address] Marcial An M.D. [id number] COVID-19/Influenza A,B Molec ularOrdered By: Thaddeus Ghosh on 03-01-2021 SARS-CoV-2 (COVID-19) RNA ANGELIQUE+probe Ql (Resp) Not detected Not Detected [facility] CRP [Mass/Vol]Ordered By: Isabel Riley on 03-01-2021 Interpretation and review of laboratory results Abnormal [facility] CRP, InflammationOrdered By: Josh Riley on 03-01-2021 CRP [Mass/Vol] 16.8 mg/L High 0.0 - 10.0 mg/L [facility] CT ABDOMEN PELVIS WITH IV CO NTRAST ONLYon 03-01-2021 CT ABDOMEN PELVIS WITH IV CONTRAST ONLY EXAMINATION: CT ABDOMEN PELVIS WITH IV CONTRAST ONLY HISTORY: ORDERING SYSTEM PROVIDED HISTORY: abdominal pain with rectal bleeding, TECHNOLOGIST PROVIDED HISTORY: Illness/Other Reason for exam: abdominal pain with rectal bleeding Encounter Type: Initial Additional signs and symptoms: abdominal pain with rectal bleeding ORDERING SYSTEM PROVIDED DIAGNOSIS CODES: COMPARISON: CT abdomen/pelvis dated 05/24/2018. TECHNIQUE: CT examination of the abdomen and pelvis following the administration of intravenous contrast. Coronal and sagittal reformations were performed. Dose reduction techniques were achieved by using automated exposure control and/or adjustment of mA and/or kV according to patient size and/or use of iterative reconstruction technique. CONTRAST: IOPAMIDOL 76 % INTRAVENOUS SOLUTION - 75 mL, FINDINGS: Visualized lung bases appear unremarkable. 13 mm hypoattenuating lesion in the left hepatic lobe is unchanged from 2018 and consistent with a benign cyst. Spleen, pancreas, and adrenal glands are unremarkable. Gallbladder is present. Kidneys enhance symmetrically. No solid or cystic renal mass. No hydronephrosis. Long segment of distal colon wall thickening with engorgement of the mesenteric vascular arcade. This involves the sigmoid colon. There is submucosal fat deposition in the rectum. No bowel obstruction. Appendix is normal. Urinary bladder appears unremarkable. Uterus is present. No adnexal mass. No free intraperitoneal air, free fluid, or lymphadenopathy in the abdomen or pelvis. There is mild atherosclerotic disease of the abdominal aorta without aneurysmal dilatation. No suspicious osseous lesions. Mild degenerative changes at L5-S1. IMPRESSION: 1. Acute nonspecific colitis involving the sigmoid colon. Infectious and inflammatory etiology should be considered. Submucosal fat deposition in the rectum may suggest chronic inflammation in the setting of ulcerative colitis. 2. No free intraperitoneal air or abscess formation. RPS/lab Workstation ID: [id number] Dictated by: SAM COUGHLIN on SunMarch 01, 2021 3:22:49 PM EDT Transcribed by: RIKI RODRÍGUEZ on SunMarch 01, 2021 3:24:55 PM EDT Finalized by: SAM COUGHLIN on SunMarch 01, 2021 4:40:23 PM EDT Normal [facility] Comment on above: Order Comment: Injur y/Trauma or Illness?:Illness/Other How long have you had these symptoms (acute/chronic)?:Acute Reason for exam?:abdominal pain with rectal bleeding Type of Exam?:Initial Additional signs and symptoms?:abdominal pain with rectal bleeding CT Abdomen Pelvis With IV Co ntrast OnlyOrdered By: Jennifer Lentz on 03-01-2021 1. Acute nonspecific colitis involving the sigmoid colon. Infectious and inflammatory etiology should be considered. Submucosal fat deposition in the rectum may suggest chronic inflammation in the setting of ulcerative colitis. 2. No free intraperitoneal air or abscess formation. RPS/lab Workstation ID: [id number] [facility] EXAMINATION: CT ABDOMEN PELVIS WITH IV CONTRAST ONLY HISTORY: ORDERING SYSTEM PROVIDED HISTORY: abdominal pain with rectal bleeding, TECHNOLOGIST PROVIDED HISTORY: Illness/Other Reason for exam: abdominal pain with rectal bleeding Encounter Type: Initial Additional signs and symptoms: abdominal pain with rectal bleeding ORDERING SYSTEM PROVIDED DIAGNOSIS CODES: COMPARISON: CT abdomen/pelvis dated 05/24/2018. TECHNIQUE: CT examination of the abdomen and pelvis following the administration of intravenous contrast. Coronal and sagittal reformations were performed. Dose reduction techniques were achieved by using automated exposure control and/or adjustment of mA and/or kV according to patient size and/or use of iterative reconstruction technique. CONTRAST: IOPAMIDOL 76 % INTRAVENOUS SOLUTION - 75 mL, FINDINGS: Visualized lung bases appear unremarkable. 13 mm hypoattenuating lesion in the left hepatic lobe is unchanged from 2018 and consistent with a benign cyst. Spleen, pancreas, and adrenal glands are unremarkable. Gallbladder is present. Kidneys enhance symmetrically. No solid or cystic renal mass. No hydronephrosis. Long segment of distal colon wall thickening with engorgement of the mesenteric vascular arcade. This involves the sigmoid colon. There is submucosal fat deposition in the rectum. No bowel obstruction. Appendix is normal. Urinary bladder appears unremarkable. Uterus is present. No adnexal mass. No free intraperitoneal air, free fluid, or lymphadenopathy in the abdomen or pelvis. There is mild atherosclerotic disease of the abdominal aorta without aneurysmal dilatation. No suspicious osseous lesions. Mild degenerative changes at L5-S1. [facility], Rad In [employer] - 03/01/2021 4:42 PM EDT EXAMINATION: CT ABDOMEN PELVIS WITH IV CONTRAST ONLY HISTORY: ORDERING SYSTEM PROVIDED HISTORY: abdominal pain with rectal bleeding, TECHNOLOGIST PROVIDED HISTORY: Illness/Other Reason for exam: abdominal pain with rectal bleeding Encounter Type: Initial Additional signs and symptoms: abdominal pain with rectal bleeding ORDERING SYSTEM PROVIDED DIAGNOSIS CODES: COMPARISON: CT abdomen/pelvis dated 05/24/2018. TECHNIQUE: CT examination of the abdomen and pelvis following the administration of intravenous contrast. Coronal and sagittal reformations were performed. Dose reduction techniques were achieved by using automated exposure control and/or adjustment of mA and/or kV according to patient size and/or use of iterative reconstruction technique. CONTRAST: IOPAMIDOL 76 % INTRAVENOUS SOLUTION - 75 mL, FINDINGS: Visualized lung bases appear unremarkable. 13 mm hypoattenuating lesion in the left hepatic lobe is unchanged from 2018 and consistent with a benign cyst. Spleen, pancreas, and adrenal glands are unremarkable. Gallbladder is present. Kidneys enhance symmetrically. No solid or cystic renal mass. No hydronephrosis. Long segment of distal colon wall thickening with engorgement of the mesenteric vascular arcade. This involves the sigmoid colon. There is submucosal fat deposition in the rectum. No bowel obstruction. Appendix is normal. Urinary bladder appears unremarkable. Uterus is present. No adnexal mass. No free intraperitoneal air, free fluid, or lymphadenopathy in the abdomen or pelvis. There is mild atherosclerotic disease of the abdominal aorta without aneurysmal dilatation. No suspicious osseous lesions. Mild degenerative changes at L5-S1. IMPRESSION: 1. Acute nonspecific colitis involving the sigmoid colon. Infectious and inflammatory etiology should be considered. Submucosal fat deposition in the rectum may suggest chronic inflammation in the setting of ulcerative colitis. 2. No free intraperitoneal air or abscess formation. RPS/lab Workstation ID: [id number] [facility] ESR Westergren method (Bld) [Velocity]Ordered By: Josh Riley on 03-01-2021 ESR (Bld) [Velocity] 9 mm/h [facility] Interpretation and review of laboratory results Normal [facility] Hepatic function 2000 panelO rdered By: Jennifer Lentz on 03-01-2021 Albumin [Mass/Vol] 4.2 g/dL 3.2 - 5.2 g/dL [facility] ALP [Catalytic activity/Vol] 65 U/L 40 - 150 U/L [facility] ALT [Catalytic activity/Vol] 20 U/L 0 - 40 U/L [facility] AST [Catalytic activity/Vol] 21 U/L 0 - 45 U/L [facility] Bilirubin [Mass/Vol] mg/dL 0.0 - 1 .3 mg/dL [facility] Bilirubin.conjugated [Mass/Vol] mg/dL 0.0 - 0.4 mg/dL [facility] Protein [Mass/Vol] 6.9 g/dL 6.0 - 8.0 g/dL [facility] INR Coag (PPP) [Relative laurita e]Ordered By: Jennifer Lentz on 03-01-2021 Interpretation and review of laboratory results Abnormal [facility] PT Coag (PPP) [Time] 11.4 s Low [facility] During the induction phase of oral anticoagulation, the INR may not reflect the anticoagulation status of the patient. Therapeutic ranges for INR's are: Most clinical situations: INR 2.0-3.0 Mechanical Prosthetic Valve: INR 2.5-3.5 Critical: INR >5.0 [facility] LipaseOrdered By: Jennifer mcfarlane on 03-01-2021 Lipase [Catalytic activity/Vol] 28 U/L 15 - 65 U/L [facility] No Panel InformationOrdered By: Kumar Lynn on 03-01-2021 Extra Tube Hold for add-ons. [facility] Comment on above: Auto resulted. No Panel InformationOrdered By: Jennifer Lentz on 03-01-2021 Interpretation and review of laboratory results Normal [facility] PT/INROrdered By: Jennifer mcfarlane on 03-01-2021 INR Coag (PPP) [Relative time] 0.9 {INR} [facility] SARS-CoV-2 (COVID-19) RNA NA A+probe Ql (Resp)Ordered By: Thaddeus Ghosh on 03-01-2021 Influenza A Not detected Not Detected [facility] Influenza B Not detected Not Detected [facility] Interpretation and review of laboratory results Normal [facility] This test was performed under the FDA's Emergency Use Authorization (EUA). Testing was performed using the Hans Pam SARS-CoV-2 RT-PCR & Influenza A/B Nucleic Acid Test on the Pam Isabella System. This test has not been approved for use in asymptomatic patients and its performance in this patient population has not been evaluated. Negative results do not rule out the presence of SARS-CoV-2, influenza A, and/or influenza B. Fact sheets for the EUA can be found at the following links: For Healthcare Providers: https://www.fda.gov/m edia/716320/download For Patients: https://www.fda.gov/m edia/789956/download [facility] URINALYSISOrdered By: Jossie Lentz on 03-01-2021 Bacteria Auto Ql (U) None Seen None Se en /hpf [facility] Clarity Refractometry automated (U) Clear Clear [facility] Color (U) Yellow Colorless, Yellow [facility] Glucose Auto test strip (U) [Mass/Vol] Negative Negative mg/dL [facility] Ketones (U) [Mass/Vol] Negative Negat ellis mg/dL [facility] Leukocyte esterase Auto test strip Ql (U) Negative Negative [facility] pH (U) 6.0 [pH] [facility] Specific gravity (U) [Rel density] 1.020 [facility] UrinalysisOrdered By: Jossie Lentz on 03-01-2021 Bilirubin Ql (U) Negative Negative [facility] Epithelial cells.squamous Auto (Urine sed) [#/Area] 1 [facility] Hemoglobin Auto test strip Ql (U) Negative Negative [facility] Interpretation and review of laboratory results Normal [facility] Mucus Auto (Urine sed) [#/Area] Rare None Seen, Rare /lpf [facility] Nitrite Auto test strip Ql (U) Negative Negative [facility] Protein (U) [Mass/Vol] Negative Negat ellis mg/dL [facility] RBC Auto (Urine sed) [#/Area] 1 [facility] Urobilinogen (U) [Mass/Vol] mg/dL <2.0 mg/dL [facility] WBC Auto (Urine sed) [#/Area] <1 [facility] Microscopic examination is performed on all urinalysis samples and only positive findings are reported. The test for blood on the chemical analytic portion of urinalysis may also be positive due to hemoglobinuria and myoglobinuria and if red blood cells are present they are quantified by microscopic examination. [facility] XR Hand Right 3+ Views (Shane fitzgerald)on 10-24-2020 No retained foreign body is seen. Madelung deformity is noted. [employer] Workstation ID: [id number] [facility] EXAMINATION: XR HAND RIGHT 3+ VIEWS (STANDARD) DATE: 10/24/2020. HISTORY: cut with glass proximal to 5th digit, concern for glass left behind Injury/Trauma or Illness?:Injury/Traum a How long have you had these symptoms (acute/chronic)?:Acut e Reason for exam?:cut with glass proximal to 5th digit, concern for glass left behind History of cancer?:. Surgeries, chemotherapy, or radiation?:. COMPARISON: None available. TECHNIQUE: Three views of the right hand were obtained. FINDINGS: No acute fracture, dislocation or kirti bone destruction is noted. No retained foreign body is noted. Madelung deformity is noted. [facility] Interface, Rad In [employer] - 10/24/2020 7:07 PM EST EXAMINATION: XR HAND RIGHT 3+ VIEWS (STANDARD) DATE: 10/24/2020. HISTORY: cut with glass proximal to 5th digit, concern for glass left behind Injury/Trauma or Illness?:Injury/Traum a How long have you had these symptoms (acute/chronic)?:Acut e Reason for exam?:cut with glass proximal to 5th digit, concern for glass left behind History of cancer?:. Surgeries, chemotherapy, or radiation?:. COMPARISON: None available. TECHNIQUE: Three views of the right hand were obtained. FINDINGS: No acute fracture, dislocation or kirti bone destruction is noted. No retained foreign body is noted. Madelung deformity is noted. IMPRESSION: No retained foreign body is seen. Madelung deformity is noted. PRR/mkv Workstation ID: [id number] [facility] Hemoglobin A1con 05-28-2020 Average glucose Estimated from glycated hemoglobin mass conc (Bld) 120 mg/dL High 74 - 114 mg/dL [facility] HbA1c (Bld) [Mass fraction] 5.8 % High 4.2 - 5.6 % [facility] Interpretation and review of laboratory results Abnormal [facility] Normal: 4.2% - 5.6% Increased risk for diabetes: 5.7% - 6.4% Diabetes: >= 6.5% Pediatrics: No established reference range Estimated average glucose: 74-114 mg/dL [facility] URINALYSISon 05-28-2020 Bacteria Auto Ql (U) None Seen None Se en /hpf [facility] Bilirubin Ql (U) Negative Negative [facility] th Clarity Refractometry automated (U) Clear Clear [facility] Color (U) Yellow Colorless, Yellow [facility] Epithelial cells.squamous Auto (Urine sed) [#/Area] <1 [facility] Glucose Auto test strip (U) [Mass/Vol] Negative Negative mg/dL [facility] Hemoglobin Auto test strip Ql (U) Negative Negative [facility] Interpretation and review of laboratory results Normal [facility] Ketones (U) [Mass/Vol] Negative Negat ellis mg/dL [facility] Leukocyte esterase Auto test strip Ql (U) Negative Negative [facility] Mucus Auto (Urine sed) [#/Area] Rare None Seen, Rare /lpf [facility] Nitrite Auto test strip Ql (U) Negative Negative [facility] pH (U) 5.0 [pH] [facility] Protein (U) [Mass/Vol] Negative Negat ellis mg/dL [facility] RBC Auto (Urine sed) [#/Area] <1 [facility] Specific gravity (U) [Rel density] 1.010 [facility] Urobilinogen (U) [Mass/Vol] <2.0 <2.0 mg/dL [facility] WBC Auto (Urine sed) [#/Area] 1 [facility] Microscopic examination is performed on all urinalysis samples and only positive findings are reported. The test for blood on the chemical analytic portion of urinalysis may also be positive due to hemoglobinuria and myoglobinuria and if red blood cells are present they are quantified by microscopic examination. [facility] Comprehensive Metabolic Pane kayley 01-02-2019 Albumin mass conc 4.1 g/dL 3.2 - 5.2 g/dL [facility] ALP enzyme act/vol 47 U/L 40 - 150 U/L [facility] ALT enzyme act/vol 26 U/L 0 - 40 U/L [facility] alth Anion gap molar conc 14 mmol/L 10 - 20 mmol/L [facility] AST enzyme act/vol 27 U/L 0 - 45 U/L [facility] alth Bilirubin mass conc mg/dL 0 - 1.3 mg/dL [facility] Calcium mass conc 9.6 mg/dL 8.4 - 10.2 mg/dL [facility] Chloride molar conc 105 mmol/L 98 - 108 mmol/L [facility] Creatinine mass conc 0.84 mg/dL 0.4 - 1 .1 mg/dL [facility] GFR/1.73 sq M predicted among non-blacks MDRD vol rate/area (S/P/Bld) The eGFR should be used for monitoring renal function only and not for medication dosing. [facility] GFR/1.73 sq M.predicted CKD-EPI vol rate/area (S/P/Bld) 78 >=60 mL/min/1.73 m2 [facility] Glucose mass conc 97 mg/dL 65 - 99 mg/dL [facility] HCO3 molar conc 29 mmol/L 21 - 32 mmol/L [facility] Interpretation and review of laboratory results Abnormal [facility] Potassium molar conc 5.5 mmol/L High 3.5 - 5 .1 mmol/L [facility] Protein mass conc 5.4 g/dL Low 6 - 8 g/dL [facility] lth Sodium molar conc 142 mmol/L 135 - 145 mmol/L [facility] Urea nitrogen mass conc 10 mg/dL 8 - 25 mg/dL [facility] Urea nitrogen/Creatinine mass ratio 11.9 mg/mg [facility] POC Glycosylated Hemoglobin (Hb A1C)on 11-11-2018 Hemoglobin A1c/Hemoglobin.total mass fraction (Bld) 5.9 % 4 - 6 % [facility] Interpretation and review of laboratory results Normal [facility] Otheron 07-25-2018 1. Benign, stable mammograms other than involutional decreased parenchymal density. 2. Redemonstration of numerous nonpathologically enlarged lymph nodes in the axilla bilaterally. BIRADS: BIRADS - CATEGORY 2 Benign, no evidence of malignancy. Normal interval follow-up is recommended in 12 months. OVERALL ASSESSMENT - BENIGN A letter of notification will be sent to the patient regarding the results. [facility], along with the [employer], the [employer], and [facility], recommend annual screening mammograms for women age 40 and older. [facility] Workstation ID: [id number] Invalid Interpretation Code NullPointer [facility] EXAMINATION: US BREAST BILATERAL COMPLETE; MM DIAGNOSTIC MARQUES BILATERAL HISTORY: ORDERING SYSTEM PROVIDED HISTORY: Swelling of lymph nodes. History of axillary hidadrenitis. TECHNOLOGIST PROVIDED HISTORY: Reason for exam: ? lymphadenopathy b/l axilla Illness/Other Encounter Type: Unknown Additional signs and symptoms: n/a ORDERING SYSTEM PROVIDED DIAGNOSIS CODES: R59.9 Swelling of lymph nodes COMPARISON: Bilateral screening mammography March 04, 2015. TECHNIQUE: Bilateral diagnostic mammography studies include craniocaudal, and mediolateral oblique 2D and 3D views. Additional diagnostic ultrasound of the axillary soft tissues bilaterally is performed. FINDINGS: Breast composition: Scattered fibroglandular markings. The fibroglandular density is decreasing as compared to previous study, consistent with involutional changes. I am not identifying any evolving breast mass. I am not identifying suspicious calcification. There are no signs of architectural distortion or suspicious calcification in either breast. Bilaterally ,there are slightly numerous-appearing axillary lymph nodes which are no larger than on previous study. No local skin thickening or inflammation is identified based on the mammograms. Ultrasound studies showed no abnormal axillary skin thickening or axillary mass. Lymph nodes are not enlarged. All have uniform cortical thickness and fatty lalito. Invalid Interpretation Code [facility] CBCon 05-26-2018 Erythrocyte distribution width Auto Entitic volume (RBC) 14.3 % Invalid Interpretation Code 11.6 - 14.8 % LAB Hematocrit Auto Volume Fraction (Bld) 38.9 % Invalid Interpretation Code 36 - 46 % LAB Hemoglobin mass conc (Bld) 12.4 g/dL Invalid Interpretation Code 12 - 16 g/dL LAB Interpretation and review of laboratory results Abnormal Invalid Interpretation Code LAB MCH Auto Entitic mass (RBC) 28.2 pg Invalid Interpretation Code 26 - 34 pg LAB MCHC Auto mass conc (RBC) 31.9 g/dL Invalid Interpretation Code 31 - 37 g/dL LAB MCV Auto Entitic volume (RBC) 88.4 fL Invalid Interpretation Code 80 - 100 fL LAB Nucleated RBC #/vol (Bld) 0.00 K/mcL Invalid Interpretation Code 0.00 - 0.00 LAB Nucleated RBC/100 WBC Ratio (Bld) 0.0 % Invalid Interpretation Code LAB Platelet mean volume Auto Entitic volume (Bld) 9.9 fL Invalid Interpretation Code 9 - 15.5 fL LAB Platelets Auto #/vol (Bld) 428 K/mcL High 150 - 400 LAB RBC Auto #/vol (Bld) 4.40 M/mcL Invalid Interpretation Code 4.00 - 5.20 LAB WBC Auto #/vol (Bld) 7.25 K/mcL Invalid Interpretation Code 4.50 - 11.00 LAB Basic Metabolic Panelon Anion gap 3 molar conc 16 mmol/L Invalid Interpretation Code 10 - 20 mmol/L LAB Calcium mass conc 9.2 mg/dL Invalid Interpretation Code 8.4 - 10.2 mg/dL LAB Chloride molar conc 104 mmol/L Invalid Interpretation Code 98 - 108 mmol/L LAB Creatinine mass conc 0.68 mg/dL Invalid Interpretation Code 0.4 - 1.1 mg/dL LAB GFR/1.73 sq M predicted among non-blacks MDRD vol rate/area (S/P/Bld) The eGFR should be used for monitoring renal function only and not for medication dosing. Invalid Interpretation Code LAB GFR/1.73 sq M.predicted CKD-EPI vol rate/area (S/P/Bld) 99 mL/min/1.73 m2 Invalid Interpretation Code >=60 LAB Glucose mass conc 112 mg/dL High 65 - 99 mg/dL LAB HCO3 molar conc 24 mmol/L Invalid Interpretation Code 21 - 32 mmol/L LAB Interpretation and review of laboratory results Abnormal Invalid Interpretation Code LAB Potassium molar conc 3.8 mmol/L Invalid Interpretation Code 3.5 - 5.1 mmol/L LAB Sodium molar conc 140 mmol/L Invalid Interpretation Code 135 - 145 mmol/L LAB Urea nitrogen mass conc 11 mg/dL Invalid Interpretation Code 8 - 25 mg/dL LAB Urea nitrogen/Creatinine mass ratio 16.2 mg/mg Invalid Interpretation Code 10.0 - 20.0 LAB CBCon 05-25-2018 Erythrocyte distribution width Auto Entitic volume (RBC) 14.5 % Invalid Interpretation Code 11.6 - 14.8 % LAB Hematocrit Auto Volume Fraction (Bld) 41.3 % Invalid Interpretation Code 36 - 46 % LAB Hemoglobin mass conc (Bld) 12.8 g/dL Invalid Interpretation Code 12 - 16 g/dL LAB MCH Auto Entitic mass (RBC) 28.1 pg Invalid Interpretation Code 26 - 34 pg LAB MCHC Auto mass conc (RBC) 31.0 g/dL Invalid Interpretation Code 31 - 37 g/dL LAB MCV Auto Entitic volume (RBC) 90.6 fL Invalid Interpretation Code 80 - 100 fL LAB Nucleated RBC #/vol (Bld) 0.00 K/mcL Invalid Interpretation Code 0.00 - 0.00 LAB Nucleated RBC/100 WBC Ratio (Bld) 0.0 % Invalid Interpretation Code LAB Platelet mean volume Auto Entitic volume (Bld) 10.0 fL Invalid Interpretation Code 9 - 15.5 fL LAB Platelets Auto #/vol (Bld) 398 K/mcL Invalid Interpretation Code 150 - 400 LAB RBC Auto #/vol (Bld) 4.56 M/mcL Invalid Interpretation Code 4.00 - 5.20 LAB WBC Auto #/vol (Bld) 9.64 K/mcL Invalid Interpretation Code 4.50 - 11.00 LAB Urinalysison 05-25-2018 Bacteria Auto Ql (U) None Seen Invalid Interpretation Code None Seen /hpf LAB Bilirubin Ql (U) Negative Invalid Interpretation Code Negative LAB Clarity Refractometry automated Nom (U) Clear Invalid Interpretation Code Clear LAB Color Auto Nom (U) Yellow Invalid Interpretation Code Colorless, Yellow LAB Glucose Automated test strip mass conc (U) Negative Invalid Interpretation Code Negative mg/dL LAB Hemoglobin Automated test strip Ql (U) Negative Invalid Interpretation Code Negative LAB Interpretation and review of laboratory results Normal Invalid Interpretation Code LAB Ketones mass conc (U) Negative Invalid Interpretation Code Negative mg/dL LAB Leukocyte esterase Automated test strip Ql (U) Negative Invalid Interpretation Code Negative LAB Mucus Auto #/area (Urine sed) Rare Invalid Interpretation Code None Seen, Rare /lpf LAB Nitrite Automated test strip Ql (U) Negative Invalid Interpretation Code Negative LAB pH Test strip (U) 6.0 [pH] Invalid Interpretation Code 5.0 - 7.0 LAB Protein mass conc (U) Negative Invalid Interpretation Code Negative mg/dL LAB Specific gravity Automated test strip Relative Density (U) 1.012 1 Invalid Interpretation Code 1.005 - 1.025 LAB Urobilinogen Test strip Qn (U) <2.0 Invalid Interpretation Code <2.0 mg/dL LAB Urinalysis Microscopic examination is performed on all urinalysis samples and only positive findings are reported. The test for blood on the chemical analytic portion of urinalysis may also be positive due to hemoglobinuria and myoglobinuria and if red blood cells are present they are quantified by microscopic examination. Invalid Interpretation Code LAB CBC Auto Differentialon 08-0 -2017 Basophils Auto #/vol (Bld) 0.12 K/mcL Invalid Interpretation Code 0.00 - 0.30 LAB Basophils/100 WBC Auto (Bld) 0.7 % Invalid Interpretation Code LAB Eosinophils Auto #/vol (Bld) 0.13 K/mcL Invalid Interpretation Code 0.00 - 0.50 LAB Eosinophils/100 WBC Auto (Bld) 0.8 % Invalid Interpretation Code LAB Erythrocyte distribution width Auto Entitic volume (RBC) 14.5 % Invalid Interpretation Code 11.6 - 14.8 % LAB Hematocrit Auto Volume Fraction (Bld) 43.8 % Invalid Interpretation Code 36 - 46 % LAB Hemoglobin mass conc (Bld) 14.1 g/dL Invalid Interpretation Code 12 - 16 g/dL LAB Immature granulocytes #/vol (Bld) 0.10 K/mcL Invalid Interpretation Code 0.00 - 0.30 LAB Immature granulocytes/100 WBC (Bld) 0.60 % Invalid Interpretation Code LAB Comment on above: The IG parameter is the percentage of metamyelocytes, myelocytes, and promyelocytes. Lymphocytes Auto #/vol (Bld) 2.35 K/mcL Invalid Interpretation Code 0.90 - 4.00 LAB Lymphocytes/100 WBC Auto (Bld) 14.0 % Invalid Interpretation Code LAB MCH Auto Entitic mass (RBC) 28.3 pg Invalid Interpretation Code 26 - 34 pg LAB MCHC Auto mass conc (RBC) 32.2 g/dL Invalid Interpretation Code 31 - 37 g/dL LAB MCV Auto Entitic volume (RBC) 88.0 fL Invalid Interpretation Code 80 - 100 fL LAB Monocytes Auto #/vol (Bld) 1.55 K/mcL High 0.30 - 0.90 LAB Monocytes/100 WBC Auto (Bld) 9.2 % Invalid Interpretation Code LAB Neutrophils Auto #/vol (Bld) 12.51 K/mcL High 1.70 - 7.00 LAB Neutrophils/100 WBC Auto (Bld) 74.7 % Invalid Interpretation Code DH LAB Nucleated RBC #/vol (Bld) 0.00 K/mcL Invalid Interpretation Code 0.00 - 0.00 DH LAB Nucleated RBC/100 WBC Ratio (Bld) 0.0 % Invalid Interpretation Code DH LAB Platelet mean volume Auto Entitic volume (Bld) 9.5 fL Invalid Interpretation Code 9 - 15.5 fL DH LAB Platelets Auto #/vol (Bld) 468 K/mcL High 150 - 400 DH LAB RBC Auto #/vol (Bld) 4.98 M/mcL Invalid Interpretation Code 4.00 - 5.20 DH LAB WBC Auto #/vol (Bld) 16.76 K/mcL High 4.50 - 11.00 D H LAB CBC w/ Diffon 05-24-2018 CBC w/ Diff The following orders were created for panel order CBC w/ Diff. Procedure Abnormality Status --------- ------ CBC Auto Differential[[id number] ] Abnormal Final result Please view results for these tests on the individual orders. Invalid Interpretation Code [facility] CRP, Inflammationon 05-24-20 18 CRP mass conc 10.7 mg/L High 0 - 10 mg/L [facility] LAB Interpretation and review of laboratory results Abnormal Invalid Interpretation Code [facility] LAB CT Abdomen Pelvis With IV Co ntrast Onlyon 05-24-2018 CT Abdomen Pelvis With IV Contrast Only EXAMINATION: CT ABDOMEN PELVIS WITH IV CONTRAST ONLY HISTORY: Labia majora abscess, concern deep space infection COMPARISON: Correlation is made with previous contrasted CT imaging of the abdomen and pelvis 04/01/2015. TECHNIQUE: Spiral axial CT imaging of the abdomen and pelvis was performed at 3.75 mm intervals throughout. 75 mL Isovue-370 was administered intravenously. Sagittal and coronal reconstructions are provided. Dose reduction techniques were achieved by using automated exposure control and/or adjustment of mA and/or kV according to patient size and/or use of iterative reconstruction technique. FINDINGS: There appears to be some mild fatty infiltration of the liver. A small cyst is noted within the posterior aspect of the left lobe. Gallbladder is unremarkable. There is no biliary ductal dilatation. Spleen is normal in size and configuration. The pancreas, adrenal glands, and kidneys demonstrate an unremarkable contrasted appearance. Colon is unremarkable. No wall thickening or inflammatory changes are present. The appendix is not identified. No pericecal inflammatory changes are present. Small bowel is normal in caliber and course. Stomach is decompressed. Uterus and adnexa appear relatively atrophic and unremarkable. Bones are unremarkable. Visualized lung bases are clear. There is asymmetric enlargement of the left labia majora with fairly extensive stranding of the underlying subcutaneous fat. There is no discernible organized fluid collection or abscess present. There is no further stranding or evidence for extension of infection to the pelvis. There are mildly enlarged nodes at the left inguinal level, likely reactive in origin. Invalid Interpretation Code [facility] CT Abdomen Pelvis With IV Contrast Only Interface, Rad In [employer] - 05/24/2018 6:32 AM EDT EXAMINATION: CT ABDOMEN PELVIS WITH IV CONTRAST ONLY HISTORY: Labia majora abscess, concern deep space infection COMPARISON: Correlation is made with previous contrasted CT imaging of the abdomen and pelvis 04/01/2015. TECHNIQUE: Spiral axial CT imaging of the abdomen and pelvis was performed at 3.75 mm intervals throughout. 75 mL Isovue-370 was administered intravenously. Sagittal and coronal reconstructions are provided. Dose reduction techniques were achieved by using automated exposure control and/or adjustment of mA and/or kV according to patient size and/or use of iterative reconstruction technique. FINDINGS: There appears to be some mild fatty infiltration of the liver. A small cyst is noted within the posterior aspect of the left lobe. Gallbladder is unremarkable. There is no biliary ductal dilatation. Spleen is normal in size and configuration. The pancreas, adrenal glands, and kidneys demonstrate an unremarkable contrasted appearance. Colon is unremarkable. No wall thickening or inflammatory changes are present. The appendix is not identified. No pericecal inflammatory changes are present. Small bowel is normal in caliber and course. Stomach is decompressed. Uterus and adnexa appear relatively atrophic and unremarkable. Bones are unremarkable. Visualized lung bases are clear. There is asymmetric enlargement of the left labia majora with fairly extensive stranding of the underlying subcutaneous fat. There is no discernible organized fluid collection or abscess present. There is no further stranding or evidence for extension of infection to the pelvis. There are mildly enlarged nodes at the left inguinal level, likely reactive in origin. IMPRESSION: 1. There is asymmetric enlargement and stranding of the subcutaneous fat at the left labia majora. There is no underlying organized fluid collection or abscess present. There is no deep extension of this process. A few small reactive nodes are present at the left inguinal level. Findings likely represent focal cellulitis. 2. Remainder of the abdomen and pelvis is otherwise largely unremarkable. [email or web address] Workstation ID: [id number] Invalid Interpretation Code [facility] CT Abdomen Pelvis With IV Contrast Only 1. There is asymmetric enlargement and stranding of the subcutaneous fat at the left labia majora. There is no underlying organized fluid collection or abscess present. There is no deep extension of this process. A few small reactive nodes are present at the left inguinal level. Findings likely represent focal cellulitis. 2. Remainder of the abdomen and pelvis is otherwise largely unremarkable. [email or web address] Workstation ID: [id number] Invalid Interpretation Code [facility] Comprehensive Metabolic Pane kayley 05-24-2018 Albumin mass conc 4.5 g/dL Invalid Interpretation Code 3.2 - 5.2 g/dL [facility] LAB ALP enzyme act/vol 66 U/L Invalid Interpretation Code 40 - 150 U/L [facility] LAB ALT enzyme act/vol 28 U/L Invalid Interpretation Code 0 - 40 U/L [facility] LAB Anion gap 3 molar conc 16 mmol/L Invalid Interpretation Code 10 - 20 mmol/L [facility] LAB AST enzyme act/vol 29 U/L Invalid Interpretation Code 0 - 45 U/L [facility] LAB Bilirubin mass conc 0.2 mg/dL Invalid Interpretation Code 0 - 1.3 mg/dL [facility] LAB Calcium mass conc 9.8 mg/dL Invalid Interpretation Code 8.4 - 10.2 mg/dL [facility] LAB Chloride molar conc 105 mmol/L Invalid Interpretation Code 98 - 108 mmol/L [facility] LAB Creatinine mass conc 0.76 mg/dL Invalid Interpretation Code 0.4 - 1.1 mg/dL [facility] LAB GFR/1.73 sq M predicted among non-blacks MDRD vol rate/area (S/P/Bld) The eGFR should be used for monitoring renal function only and not for medication dosing. Invalid Interpretation Code [facility] LAB GFR/1.73 sq M.predicted CKD-EPI vol rate/area (S/P/Bld) 89 mL/min/1.73 m2 Invalid Interpretation Code >=60 [facility] LAB Glucose mass conc 117 mg/dL High 65 - 99 mg/dL [facility] LAB HCO3 molar conc 27 mmol/L Invalid Interpretation Code 21 - 32 mmol/L [facility] LAB Potassium molar conc 4.0 mmol/L Invalid Interpretation Code 3.5 - 5.1 mmol/L [facility] LAB Protein mass conc 6.7 g/dL Invalid Interpretation Code 6 - 8 g/dL LAB Sodium molar conc 144 mmol/L Invalid Interpretation Code 135 - 145 mmol/L LAB Urea nitrogen mass conc 11 mg/dL Invalid Interpretation Code 8 - 25 mg/dL LAB Urea nitrogen/Creatinine mass ratio 14.5 mg/mg Invalid Interpretation Code 10.0 - 20.0 LAB [place] Topon 05-24-2018 Extra Tube Hold for add-ons. Invalid Interpretation Code LAB Comment on above: Auto resulted. Hemoglobin A1con 05-24-2018 Average glucose Estimated from glycated hemoglobin mass conc (Bld) 114 mg/dL Invalid Interpretation Code 68 - 126 mg/dL LAB Hemoglobin A1c/Hemoglobin.total mass fraction (Bld) 5.6 % Invalid Interpretation Code 4.2 - 6 % LAB Lactic Acid, Plasmaon 2017 Interpretation and review of laboratory results Normal Invalid Interpretation Code LAB Lactate molar conc 1.4 mmol/L Invalid Interpretation Code 0.6 - 2 mmol/L LAB [place] Drawon 05-24-2018 [place] Draw The following orders were created for panel order [place] [facility]. Procedure Abnormality Status --------- ------ Gold Top[[id number]] Final result Light Blue Top[[id number]] Final result [place] Top[[id number]] Final result Please view results for these tests on the individual orders. Invalid Interpretation Code [facility] Rateon 018 ESR Velocity (Bld) 6 mm/h Invalid Interpretation Code 0 - 30 LAB Interpretation and review of laboratory results Normal Invalid Interpretation Code LAB Vital Signs Date Time Vital Sign Value Performing Clinician Facility 03-06-2025 08:43-0400 Body height 153 cm Jennifer Sheets DO Work Phone: [facility] 03-06-2025 08:43-0400 Body mass index (BMI) [Ratio] 30.8 kg/m2 Jennifer Sheets DO Work Phone: [facility] 03-06-2025 08:43-0400 Body temperature 98.2 [degF] Jennifer Sheets DO Work Phone: [facility] 03-06-2025 08:43-0400 Body weight 72.12 kg Jennifer Sheets DO Work Phone: [facility] 03-06-2025 08:43-0400 Diastolic blood pressure 68 mm[Hg] Jennifer Sheets DO Work Phone: [facility] 03-06-2025 08:43-0400 Heart rate 68 /min Jennifer Sheets DO Work Phone: [facility] 03-06-2025 08:43-0400 SaO2% (BldA) [Mass fraction] 94 % Jennifer Sheets DO Work Phone: [facility] 03-06-2025 08:43-0400 Systolic blood pressure 118 mm[Hg] Jennifer Sheets DO Work Phone: [facility] 11-13-2024 16:44-0500 Body temperature 97.5 [degF] Dr. Terry Phillip DO Work Phone: [facility] 11-13-2024 16:44-0500 Diastolic blood pressure 88 mm[Hg] Dr. Terry Phillip DO Work Phone: [facility] 11-13-2024 16:44-0500 Heart rate 86 /min Dr. Terry Phillip DO Work Phone: [facility] 11-13-2024 16:44-0500 Respiratory rate 16 /min Dr. Terry Phillip DO Work Phone: [facility] 11-13-2024 16:44-0500 SaO2% (BldA) [Mass fraction] 99 % Dr. Terry Phillip DO Work Phone: [facility] 11-13-2024 16:44-0500 Systolic blood pressure 146 mm[Hg] Dr. Teryr Phillip DO Work Phone: [facility] 11-13-2024 14:59-0500 Body height 152.[address] Terry Phillip DO Work Phone: [facility] 11-03-2024 17:41-0500 Body temperature 98 [degF] Dr. Terry Phillip DO Work Phone: [facility] 11-03-2024 17:41-0500 Diastolic blood pressure 83 mm[Hg] Dr. Terry Phillip DO Work Phone: [facility] 11-03-2024 17:41-0500 Heart rate 65 /min Dr. Terry Phillip DO Work Phone: [facility] 11-03-2024 17:41-0500 Respiratory rate 16 /min Dr. Terry Phillip DO Work Phone: [facility] 11-03-2024 17:41-0500 SaO2% (BldA) [Mass fraction] 97 % Dr. Terry Phillip DO Work Phone: [facility] 11-03-2024 17:41-0500 Systolic blood pressure 137 mm[Hg] Dr. Terry Phillip DO Work Phone: [facility] 11-03-2024 14:23-0500 Body mass index (BMI) [Ratio] 31.2 kg/m2 Dr. Terry Phillip DO Work Phone: [facility] 11-03-2024 14:23-0500 Body weight 72.[address] Terry Phillip DO Work Phone: [facility] 04-22-2024 17:03-0400 Diastolic blood pressure 76 mm[Hg] Jennifer Sheets DO Work Phone: [facility] 04-22-2024 17:03-0400 Systolic blood pressure 132 mm[Hg] Jennifer Sheets DO Work Phone: [facility] 04-22-2024 16:03-0400 Body height 153 cm Jennifer Sheets DO Work Phone: [facility] 04-22-2024 16:03-0400 Body mass index (BMI) [Ratio] 32.34 kg/m2 Jennifer Sheets DO Work Phone: [facility] 04-22-2024 16:03-0400 Body temperature 98.2 [degF] Jennifer Sheets DO Work Phone: [facility] 04-22-2024 16:03-0400 Body weight 75.75 kg Jennifer Sheets DO Work Phone: [facility] 04-22-2024 16:03-0400 Heart rate 88 /min Jennifer Sheets DO Work Phone: [facility] 04-22-2024 16:03-0400 Respiratory rate 16 /min Jennifer Sheets DO Work Phone: [facility] 04-22-2024 16:03-0400 SaO2% (BldA) [Mass fraction] 97 % Jennifer Sheets DO Work Phone: [facility] 03-27-2024 14:26-0400 Body height 153 cm Nidia Queden SALVAGE DETERMINER.[employer] ATTENDANT Work Phone: [facility] 03-27-2024 14:26-0400 Body mass index (BMI) [Ratio] 32.73 kg/m2 Nidia Queden SALVAGE DETERMINER.A[employer]AR[employer] T[employer] ATTENDANT Work Phone: [facility] 03-27-2024 14:26-0400 Body temperature 98.29 [degF] Nidia Queden SALVAGE DETERMINER.A[employer] T[employer] ATTENDANT Work Phone: [facility] 03-27-2024 14:26-0400 Body weight 76.66 kg Nidia Queden SALVAGE DETERMINER.A[employer] ATTENDANT Work Phone: [facility] 03-27-2024 14:26-0400 Diastolic blood pressure 80 mm[Hg] Nidia Queden SALVAGE DETERMINER.A[employer] T[employer] ATTENDANT Work Phone: [facility] 03-27-2024 14:26-0400 Heart rate 94 /min Nidia Queden SALVAGE DETERMINER.A[employer] ATTENDANT Work Phone: [facility] 03-27-2024 14:26-0400 Respiratory rate 18 /min Nidia Queden SALVAGE DETERMINER.A[employer] ATTENDANT Work Phone: [facility] 03-27-2024 14:26-0400 SaO2% (BldA) [Mass fraction] 97 % Nidia Queden SALVAGE DETERMINER.A[employer] T[employer] ATTENDANT Work Phone: [facility] 03-27-2024 14:26-0400 Systolic blood pressure 132 mm[Hg] Nidia Yang JUAN.AQUARI[employer] T[employer] ATTENDANT Work Phone: [facility] 01-22-2024 15:58-0400 Body height 153 cm Jennifer Sheets DO Work Phone: [facility] 01-22-2024 15:58-0400 Body temperature 98.1 [degF] Jennifer Sheets DO Work Phone: [facility] 01-22-2024 15:58-0400 Body weight 70.31 kg Jennifer Sheets DO Work Phone: [facility] 01-22-2024 15:58-0400 Diastolic blood pressure 76 mm[Hg] Jennifer Sheets DO Work Phone: [facility] 01-22-2024 15:58-0400 Heart rate 85 /min Jennifer Sheets DO Work Phone: [facility] 01-22-2024 15:58-0400 Respiratory rate 16 /min Jennifer Sheets DO Work Phone: [facility] 01-22-2024 15:58-0400 SaO2% (BldA) [Mass fraction] 97 % Jennifer Sheets DO Work Phone: [facility] 01-22-2024 15:58-0400 Systolic blood pressure 118 mm[Hg] Jennifer Sheets DO Work Phone: [facility] 09-26-2023 10:51-0500 Body height 153 cm Jennifer Sheets DO Work Phone: [facility] 09-26-2023 10:51-0500 Body temperature 97.9 [degF] Jennifer Sheets DO Work Phone: [facility] 09-26-2023 10:51-0500 Body weight 67.59 kg Jennifer Sheets DO Work Phone: [facility] 09-26-2023 10:51-0500 Diastolic blood pressure 78 mm[Hg] Jennifer Sheets DO Work Phone: [facility] 09-26-2023 10:51-0500 Heart rate 80 /min Jennifer Sheets DO Work Phone: [facility] 09-26-2023 10:51-0500 Respiratory rate 16 /min Jennifer Sheets DO Work Phone: [facility] 09-26-2023 10:51-0500 SaO2% (BldA) [Mass fraction] 96 % Jennifer Sheets DO Work Phone: [facility] 09-26-2023 10:51-0500 Systolic blood pressure 126 mm[Hg] Jennifer Sheets DO Work Phone: [facility] 05-08-2023 14:27-0400 Body mass index (BMI) [Ratio] 26.56 kg/m2 Mateusz Linares DO [facility] 05-08-2023 14:27-0400 Body weight 61.69 kg Mateusz Linares [facility] 05-08-2023 14:27-0400 Diastolic blood pressure 84 mm[Hg] Mateusz Linares [facility] 05-08-2023 14:27-0400 Heart rate 79 /min Mateusz Linares DO [facility] 05-08-2023 14:27-0400 SaO2% (BldA) [Mass fraction] 98 % Mateusz Linares DO [facility] 05-08-2023 14:27-0400 Systolic blood pressure 132 mm[Hg] Mateusz Linares DO [facility] 04-19-2023 10:16-0400 Body height 152.4 cm Carolina Meiring OPERATING ROOM TECHNICIAN Work Phone: [facility] 04-19-2023 10:16-0400 Body mass index (BMI) [Ratio] 26.56 kg/m2 Carolina Meiring OPERATING ROOM TECHNICIAN Work Phone: [facility] 04-19-2023 10:16-0400 Body weight 61.69 kg Carolina Meiring OPERATING ROOM TECHNICIAN Work Phone: [facility] 04-19-2023 10:16-0400 Respiratory rate 16 /min Carolina Meiring OPERATING ROOM TECHNICIAN Work Phone: [facility] 03-22-2023 14:56-0400 Body height 152.4 cm Carolinaada Arcosring OPERATING ROOM TECHNICIAN Work Phone: [facility] 03-22-2023 14:56-0400 Body mass index (BMI) [Ratio] 26.76 kg/m2 Carolina Josselynring OPERATING ROOM TECHNICIAN Work Phone: [facility] 03-22-2023 14:56-0400 Body weight 62.14 kg Carolina Josselynring OPERATING ROOM TECHNICIAN Work Phone: [facility] 03-22-2023 14:56-0400 Respiratory rate 16 /min Carolina Arcosring OPERATING ROOM TECHNICIAN Work Phone: [facility] 02-28-2023 08:30-0400 Body height 152.4 cm Rosales Pierce DO Work Phone: [facility] 02-28-2023 08:30-0400 Body mass index (BMI) [Ratio] 27.11 kg/m2 Rosales Pierce DO Work Phone: [facility] 02-28-2023 08:30-0400 Body temperature 98.01 [degF] Rosales Pierce DO Work Phone: [facility] 02-28-2023 08:30-0400 Body weight 62.96 kg Rosales Pierce DO Work Phone: [facility] 02-28-2023 08:30-0400 Diastolic blood pressure 86 mm[Hg] Rosales Pierce DO Work Phone: [facility] 02-28-2023 08:30-0400 Heart rate 91 /min Rosales Pierce DO Work Phone: [facility] 02-28-2023 08:30-0400 Respiratory rate 18 /min Rosales Pierce DO Work Phone: [facility] 02-28-2023 08:30-0400 SaO2% (BldA) [Mass fraction] 99 % Rosales Pierce DO Work Phone: [facility] 02-28-2023 08:30-0400 Systolic blood pressure 136 mm[Hg] Rosales Pierce DO Work Phone: [facility] 02-20-2023 09:48-0400 Body height 152.4 cm Kota Landa DO Work Phone: [facility] 02-20-2023 09:48-0400 Body mass index (BMI) [Ratio] 27.15 kg/m2 Kota Landa DO Work Phone: [facility] 02-20-2023 09:48-0400 Body weight 63.05 kg Kota Landa DO Work Phone: [facility] 02-20-2023 09:48-0400 Respiratory rate 17 /min Kota Landa DO Work Phone: [facility] 12-07-2022 10:03-0500 Body mass index (BMI) [Ratio] 26.6 kg/m2 Ely Thaliardoost DO Work Phone: [facility] 12-07-2022 10:03-0500 Body temperature 97.81 [degF] Ely Zardoost DO Work Phone: [facility] 12-07-2022 10:03-0500 Body weight 61.78 kg Ely Thaliardoost DO Work Phone: [facility] 12-07-2022 10:03-0500 Diastolic blood pressure 76 mm[Hg] Ely Vásquezrdoost DO Work Phone: [facility] 12-07-2022 10:03-0500 Heart rate 80 /min Ely Zardoost DO Work Phone: [facility] 12-07-2022 10:03-0500 SaO2% (BldA) [Mass fraction] 98 % Ely Zardoost DO Work Phone: [facility] 12-07-2022 10:03-0500 Systolic blood pressure 115 mm[Hg] Ely Zardoost DO Work Phone: [facility] 11-20-2022 11:07-0500 Body mass index (BMI) [Ratio] 26.56 kg/m2 Mateusz Linares DO Work Phone: [facility] 11-20-2022 11:07-0500 Body temperature 97.7 [degF] Mateusz Portillohen DO Work Phone: [facility] 11-20-2022 11:07-0500 Body weight 61.69 kg Mateusz Linares DO Work Phone: [facility] 11-20-2022 11:07-0500 Diastolic blood pressure 79 mm[Hg] Mateusz Linares DO Work Phone: [facility] 11-20-2022 11:07-0500 Heart rate 81 /min Mateusz Linares DO Work Phone: [facility] 11-20-2022 11:07-0500 Respiratory rate 18 /min Mateusz Linares DO Work Phone: [facility] 11-20-2022 11:07-0500 SaO2% (BldA) [Mass fraction] 98 % Mateusz Linares DO Work Phone: [facility] 11-20-2022 11:07-0500 Systolic blood pressure 122 mm[Hg] Mateusz Linares DO Work Phone: [facility] 11-06-2022 11:04-0500 Body mass index (BMI) [Ratio] 25.19 kg/m2 Ortega Uhrig DO Work Phone: [facility] 11-06-2022 11:04-0500 Body temperature 98.01 [degF] Ortega Uhrig DO Work Phone: [facility] 11-06-2022 11:04-0500 Body weight 58.51 kg Ortega Uhrig DO Work Phone: [facility] 11-06-2022 11:04-0500 Diastolic blood pressure 79 mm[Hg] Ortega Uhrig DO Work Phone: [facility] 11-06-2022 11:04-0500 Heart rate 83 /min Ortega Uhrig DO Work Phone: [facility] 11-06-2022 11:04-0500 SaO2% (BldA) [Mass fraction] 96 % Ortega Uhrig DO Work Phone: [facility] 11-06-2022 11:04-0500 Systolic blood pressure 133 mm[Hg] Ortega Uhrig DO Work Phone: [facility] 09-11-2022 10:30-0500 Body mass index (BMI) [Ratio] 26.05 kg/m2 Govind Mar DO Work Phone: [facility] 09-11-2022 10:30-0500 Body temperature 98.29 [degF] Govind Mar DO Work Phone: [facility] 09-11-2022 10:30-0500 Body weight 60.51 kg Govind Mar DO Work Phone: [facility] 09-11-2022 10:30-0500 Diastolic blood pressure 79 mm[Hg] Govind Mar DO Work Phone: [facility] 09-11-2022 10:30-0500 Heart rate 91 /min Govind Mar DO Work Phone: [facility] 09-11-2022 10:30-0500 Respiratory rate 16 /min Govind Mar DO Work Phone: [facility] 09-11-2022 10:30-0500 SaO2% (BldA) [Mass fraction] 96 % Govind Mar DO Work Phone: [facility] 09-11-2022 10:30-0500 Systolic blood pressure 125 mm[Hg] Govind Mar DO Work Phone: [facility] 05-15-2022 16:44-0400 Body mass index (BMI) [Ratio] 29.1 kg/m2 Yomi Ivey DO Work Phone: [facility] 05-15-2022 16:44-0400 Body temperature 97.3 [degF] Yomi Ivey DO Work Phone: [facility] 05-15-2022 16:44-0400 Body weight 67.59 kg Yomi Ivey DO Work Phone: [facility] 05-15-2022 16:44-0400 Diastolic blood pressure 77 mm[Hg] Yomi Ivey DO Work Phone: [facility] 05-15-2022 16:44-0400 Heart rate 75 /min Yomi Ivey DO Work Phone: [facility] 05-15-2022 16:44-0400 SaO2% (BldA) [Mass fraction] 95 % Yomi Ivey DO Work Phone: [facility] 05-15-2022 16:44-0400 Systolic blood pressure 123 mm[Hg] Yomi Ivey DO Work Phone: [facility] 05-05-2022 09:26-0400 Body mass index (BMI) [Ratio] 28.04 kg/m2 Mateusz Linares DO Work Phone: [facility] 05-05-2022 09:26-0400 Body temperature 98.2 [degF] Mateusz Linares DO Work Phone: [facility] 05-05-2022 09:26-0400 Body weight 67.31 kg Mateusz Portillohen DO Work Phone: [facility] 05-05-2022 09:26-0400 Diastolic blood pressure 80 mm[Hg] Mateusz Pothen DO Work Phone: [facility] 05-05-2022 09:26-0400 Heart rate 66 /min Mateusz Pothen DO Work Phone: [facility] 05-05-2022 09:26-0400 Respiratory rate 16 /min Mateusz Pothen DO Work Phone: [facility] 05-05-2022 09:26-0400 SaO2% (BldA) [Mass fraction] 95 % Mateusz Pothen DO Work Phone: [facility] 05-05-2022 09:26-0400 Systolic blood pressure 118 mm[Hg] Mateusz Linares DO Work Phone: [facility] 04-17-2022 09:46-0400 Diastolic blood pressure 86 mm[Hg] Peter Mendoza DO Work Phone: [facility] 04-17-2022 09:46-0400 Systolic blood pressure 147 mm[Hg] Peter Mendoza DO Work Phone: [facility] 04-17-2022 09:30-0400 Body mass index (BMI) [Ratio] 26.15 kg/m2 Peter Mendoza DO Work Phone: [facility] 04-17-2022 09:30-0400 Body temperature 97.3 [degF] Peter Mendoza DO Work Phone: [facility] 04-17-2022 09:30-0400 Body weight 62.78 kg Peter Mendoza DO Work Phone: [facility] 04-17-2022 09:30-0400 Heart rate 74 /min Peter Mendoza DO Work Phone: [facility] 04-17-2022 09:30-0400 Respiratory rate 12 /min Peter Mendoza DO Work Phone: [facility] 04-17-2022 09:30-0400 SaO2% (BldA) [Mass fraction] 97 % Peter Mendoza DO Work Phone: [facility] 01-05-2022 08:28-0400 Body height 154.9 cm Antonio Velasquezgerry DO Work Phone: [facility] 01-05-2022 08:28-0400 Body mass index (BMI) [Ratio] 30.04 kg/m2 Antonio Velasquezs DO Work Phone: [facility] 01-05-2022 08:28-0400 Body temperature 97.9 [degF] Antonio Engs DO Work Phone: [facility] 01-05-2022 08:28-0400 Body weight 72.12 kg Antonio Engs DO Work Phone: [facility] 01-05-2022 08:28-0400 Diastolic blood pressure 81 mm[Hg] Antonio Drakeanns DO Work Phone: [facility] 01-05-2022 08:28-0400 Heart rate 78 /min Antonio Engs DO Work Phone: [facility] 01-05-2022 08:28-0400 Respiratory rate 16 /min Antonio Engs DO Work Phone: [facility] 01-05-2022 08:28-0400 SaO2% (BldA) [Mass fraction] 97 % Antonio Engs DO Work Phone: [facility] 01-05-2022 08:28-0400 Systolic blood pressure 129 mm[Hg] Antonio Engs DO Work Phone: [facility] 09-14-2021 16:01-0500 Body mass index (BMI) [Ratio] 32.99 kg/m2 Peter Mendoza DO Work Phone: [facility] 09-14-2021 16:01-0500 Body temperature 97.59 [degF] Peter Mendoza DO Work Phone: [facility] 09-14-2021 16:01-0500 Body weight 79.2 kg Peter Mendoza DO Work Phone: [facility] 09-14-2021 16:01-0500 Diastolic blood pressure 74 mm[Hg] Peter Mendoza DO Work Phone: [facility] 09-14-2021 16:01-0500 Heart rate 66 /min Peter Mendoza DO Work Phone: [facility] 09-14-2021 16:01-0500 SaO2% (BldA) [Mass fraction] 93 % Peter Mendoza DO Work Phone: [facility] 09-14-2021 16:01-0500 Systolic blood pressure 115 mm[Hg] Peter Mendoza DO Work Phone: [facility] 09-05-2021 10:06-0500 Body mass index (BMI) [Ratio] 32.23 kg/m2 Lamonte Disabato DO Work Phone: [facility] 09-05-2021 10:06-0500 Body temperature 97.39 [degF] Lamonte Disabato DO Work Phone: [facility] 09-05-2021 10:06-0500 Body weight 77.38 kg Lamonte Disabato DO Work Phone: [facility] 09-05-2021 10:06-0500 Diastolic blood pressure 81 mm[Hg] Lamonte Disabato DO Work Phone: [facility] 09-05-2021 10:06-0500 Heart rate 75 /min Lamonte Disabato DO Work Phone: [facility] 09-05-2021 10:06-0500 SaO2% (BldA) [Mass fraction] 96 % Lamonte Disabato DO Work Phone: [facility] 09-05-2021 10:06-0500 Systolic blood pressure 120 mm[Hg] Lamonte Disabato DO Work Phone: [facility] 08-30-2021 09:18-0500 Diastolic blood pressure 80 mm[Hg] Peter Mendoza DO Work Phone: [facility] 08-30-2021 09:18-0500 Systolic blood pressure 127 mm[Hg] Peter Mendoza DO Work Phone: [facility] 08-30-2021 09:13-0500 Body mass index (BMI) [Ratio] 32.65 kg/m2 Peter Mendoza DO Work Phone: [facility] 08-30-2021 09:13-0500 Body temperature 97.7 [degF] Peter Mendoza DO Work Phone: [facility] 08-30-2021 09:13-0500 Body weight 78.38 kg Peter Mendoza DO Work Phone: [facility] 08-30-2021 09:13-0500 Heart rate 72 /min Peter Mendoza DO Work Phone: [facility] 08-30-2021 09:13-0500 SaO2% (BldA) [Mass fraction] 93 % Peter Mendoza DO Work Phone: [facility] 08-12-2021 08:27-0400 Body height 154.9 cm Peter Mendoza DO Work Phone: [facility] 08-12-2021 08:27-0400 Body mass index (BMI) [Ratio] 33.44 kg/m2 Peter Mendoza DO Work Phone: [facility] 08-12-2021 08:27-0400 Body temperature 97.59 [degF] Peter Mgight DO Work Phone: [facility] 08-12-2021 08:27-0400 Body weight 80.29 kg Peter Mendoza DO Work Phone: [facility] 08-12-2021 08:27-0400 Diastolic blood pressure 74 mm[Hg] Peter Mendoza DO Work Phone: [facility] 08-12-2021 08:27-0400 Heart rate 71 /min Peter Mendoza DO Work Phone: [facility] 08-12-2021 08:27-0400 SaO2% (BldA) [Mass fraction] 98 % Peter Mendoza DO Work Phone: [facility] 08-12-2021 08:27-0400 Systolic blood pressure 138 mm[Hg] Peter Mgight DO Work Phone: [facility] 07-07-2021 15:19-0400 Body mass index (BMI) [Ratio] 33.6 kg/m2 Peter Mendoza DO Work Phone: [facility] 07-07-2021 15:19-0400 Body temperature 96.8 [degF] Peter Mgight DO Work Phone: [facility] 07-07-2021 15:19-0400 Body weight 80.65 kg Peter Mendoza DO Work Phone: [facility] 07-07-2021 15:19-0400 Diastolic blood pressure 85 mm[Hg] Peter Mendoza DO Work Phone: [facility] 07-07-2021 15:19-0400 Heart rate 86 /min Peter Mendoza DO Work Phone: [facility] 07-07-2021 15:19-0400 Respiratory rate 16 /min Peter Mendoza DO Work Phone: [facility] 07-07-2021 15:19-0400 SaO2% (BldA) [Mass fraction] 97 % Peter Mendoza DO Work Phone: [facility] 07-07-2021 15:19-0400 Systolic blood pressure 133 mm[Hg] Peter Mendoza DO Work Phone: [facility] 06-07-2021 15:56-0400 Body height 154.9 cm Peter Mendoza DO Work Phone: [facility] 06-07-2021 15:56-0400 Body mass index (BMI) [Ratio] 33.07 kg/m2 Peter Mendoza DO Work Phone: [facility] 06-07-2021 15:56-0400 Body temperature 97.11 [degF] Peter Mendoza DO Work Phone: [facility] 06-07-2021 15:56-0400 Body weight 79.38 kg Peter Mendoza DO Work Phone: [facility] 06-07-2021 15:56-0400 Diastolic blood pressure 70 mm[Hg] Peter Mendoza DO Work Phone: [facility] 06-07-2021 15:56-0400 Heart rate 78 /min Peter Mendoza DO Work Phone: [facility] 06-07-2021 15:56-0400 Respiratory rate 16 /min Peter Mendoza DO Work Phone: [facility] 06-07-2021 15:56-0400 SaO2% (BldA) [Mass fraction] 93 % Peter Mendoza DO Work Phone: [facility] 06-07-2021 15:56-0400 Systolic blood pressure 106 mm[Hg] Peter Mendoza DO Work Phone: [facility] 05-02-2021 09:59-0400 Body height 154.9 cm Peter Mendoza DO Work Phone: [facility] 05-02-2021 09:59-0400 Body mass index (BMI) [Ratio] 33.07 kg/m2 Peter Mendoza DO Work Phone: [facility] 05-02-2021 09:59-0400 Body temperature 97.9 [degF] Peter Mendoza DO Work Phone: [facility] 05-02-2021 09:59-0400 Body weight 79.38 kg Peter Mendoza DO Work Phone: [facility] 05-02-2021 09:59-0400 Diastolic blood pressure 76 mm[Hg] Peter Mendoza DO Work Phone: [facility] 05-02-2021 09:59-0400 Heart rate 80 /min Peter Mendoza DO Work Phone: [facility] 05-02-2021 09:59-0400 Respiratory rate 16 /min Peter Mendoza DO Work Phone: [facility] 05-02-2021 09:59-0400 SaO2% (BldA) [Mass fraction] 95 % Peter Mendoza DO Work Phone: [facility] 05-02-2021 09:59-0400 Systolic blood pressure 117 mm[Hg] Peter Mendoza DO Work Phone: [facility] 04-22-2021 11:20-0400 Diastolic blood pressure 72 mm[Hg] Peter Mendoza DO Work Phone: [facility] 04-22-2021 11:20-0400 Systolic blood pressure 116 mm[Hg] Peter Mendoza DO Work Phone: [facility] 04-22-2021 11:04-0400 Body height 154.9 cm Peter Mendoza DO Work Phone: [facility] 04-22-2021 11:04-0400 Body mass index (BMI) [Ratio] 32.88 kg/m2 Peter Mendoza DO Work Phone: [facility] 04-22-2021 11:04-0400 Body temperature 97.9 [degF] Peter Mendoza DO Work Phone: [facility] 04-22-2021 11:04-0400 Body weight 78.93 kg Peter Mendoza DO Work Phone: [facility] 04-22-2021 11:04-0400 Heart rate 82 /min Peter Mendoza DO Work Phone: [facility] 04-22-2021 11:04-0400 Respiratory rate 16 /min Peter Mendoza DO Work Phone: [facility] 04-22-2021 11:04-0400 SaO2% (BldA) [Mass fraction] 95 % Peter Mendoza DO Work Phone: [facility] 04-14-2021 13:20-0400 Body height 154.9 cm Sue Diaz DO Work Phone: [facility] 04-14-2021 13:20-0400 Body mass index (BMI) [Ratio] 32.69 kg/m2 Sue Diaz DO Work Phone: [facility] 04-14-2021 13:20-0400 Body temperature 97.3 [degF] Sue Diaz DO Work Phone: [facility] 04-14-2021 13:20-0400 Body weight 78.47 kg Sue Diaz DO Work Phone: [facility] 04-14-2021 13:20-0400 Diastolic blood pressure 69 mm[Hg] Sue Diaz DO Work Phone: [facility] 04-14-2021 13:20-0400 Heart rate 84 /min Sue Diaz DO Work Phone: [facility] 04-14-2021 13:20-0400 Respiratory rate 16 /min Sue Diaz DO Work Phone: [facility] 04-14-2021 13:20-0400 SaO2% (BldA) [Mass fraction] 94 % Sue Joe DO Work Phone: [facility] 04-14-2021 13:20-0400 Systolic blood pressure 112 mm[Hg] Sue Diaz DO Work Phone: [facility] 03-28-2021 09:32-0400 Body height 154.9 cm Peter Mendoza DO Work Phone: [facility] 03-28-2021 09:32-0400 Body mass index (BMI) [Ratio] 32.88 kg/m2 Peter Mendoza DO Work Phone: [facility] 03-28-2021 09:32-0400 Body temperature 95.59 [degF] Peter Mendoza DO Work Phone: [facility] 03-28-2021 09:32-0400 Body weight 78.93 kg Peter Mendoza DO Work Phone: [facility] 03-28-2021 09:32-0400 Diastolic blood pressure 72 mm[Hg] Peter Mendoza DO Work Phone: [facility] 03-28-2021 09:32-0400 Heart rate 95 /min Peter Mendoza DO Work Phone: [facility] 03-28-2021 09:32-0400 SaO2% (BldA) [Mass fraction] 92 % Peter Mendoza DO Work Phone: [facility] 03-28-2021 09:32-0400 Systolic blood pressure 106 mm[Hg] Peter Mendoza DO Work Phone: [facility] 03-22-2021 20:15-0400 Diastolic blood pressure 84 mm[Hg] Chico Mchugh MD Work Phone: [facility] 03-22-2021 20:15-0400 Heart rate 59 /min Chico Mchugh MD Work Phone: [facility] 03-22-2021 20:15-0400 Respiratory rate 16 /min Chico Mchugh MD Work Phone: [facility] 03-22-2021 20:15-0400 SaO2% (BldA) [Mass fraction] 96 % Chico Mchugh MD Work Phone: [facility] 03-22-2021 20:15-0400 Systolic blood pressure 155 mm[Hg] Chico Mchugh MD Work Phone: [facility] 03-22-2021 18:27-0400 Body height 154.9 cm Chico Mchugh MD Work Phone: [facility] 03-22-2021 18:27-0400 Body mass index (BMI) [Ratio] 32.12 kg/m2 Chico Mchugh MD Work Phone: [facility] 03-22-2021 18:27-0400 Body temperature 98.49 [degF] Chioc Mchugh MD Work Phone: [facility] 03-22-2021 18:27-0400 Body weight 77.11 kg Chico Mchugh MD Work Phone: [facility] 03-14-2021 10:32-0400 Body height 154.9 cm Peter Mendoza DO Work Phone: [facility] 03-14-2021 10:32-0400 Body mass index (BMI) [Ratio] 31.93 kg/m2 Peter Mendoza DO Work Phone: [facility] 03-14-2021 10:32-0400 Body temperature 97.3 [degF] Peter Mendoza DO Work Phone: [facility] 03-14-2021 10:32-0400 Body weight 76.66 kg Peter Mendoza DO Work Phone: [facility] 03-14-2021 10:32-0400 Diastolic blood pressure 80 mm[Hg] Peter Mendoza DO Work Phone: [facility] 03-14-2021 10:32-0400 Heart rate 99 /min Peter Mendoza DO Work Phone: [facility] 03-14-2021 10:32-0400 SaO2% (BldA) [Mass fraction] 94 % Peter Mendoza DO Work Phone: [facility] 03-14-2021 10:32-0400 Systolic blood pressure 125 mm[Hg] Peter Mendoza DO Work Phone: [facility] 03-05-2021 08:42-0400 Body temperature 97.59 [degF] Kumar Lynn MD Work Phone: [facility] 03-05-2021 08:42-0400 Diastolic blood pressure 85 mm[Hg] Kumar Lynn MD Work Phone: [facility] 03-05-2021 08:42-0400 Heart rate 55 /min Kumar Lynn MD Work Phone: [facility] 03-05-2021 08:42-0400 Respiratory rate 16 /min Kumar Lynn MD Work Phone: [facility] 03-05-2021 08:42-0400 SaO2% (BldA) [Mass fraction] 96 % Kumar Lynn MD Work Phone: [facility] 03-05-2021 08:42-0400 Systolic blood pressure 136 mm[Hg] Kumar Lynn MD Work Phone: [facility] 03-01-2021 12:24-0400 Body height 154.9 cm Kumar Lynn MD Work Phone: [facility] 03-01-2021 12:24-0400 Body mass index (BMI) [Ratio] 32.12 kg/m2 Kumar Lynn MD Work Phone: [facility] 03-01-2021 12:24-0400 Body weight 77.11 kg Kumar Lynn MD Work Phone: [facility] 10-24-2020 17:55-0500 BMI (Body Mass Index) 34.57 kg/m2 [facility] 10-24-2020 17:55-0500 Body Temperature 98.2 [degF] [facility] 10-24-2020 17:55-0500 Body weight 80.29 kg [facility] 10-24-2020 17:55-0500 BP Diastolic 67 mm[Hg] [facility] 10-24-2020 17:55-0500 BP Systolic 129 mm[Hg] [facility] 10-24-2020 17:55-0500 Height 152.4 cm [facility] 10-24-2020 17:55-0500 Pulse (Heart Rate) 69 /min [facility] 10-24-2020 17:55-0500 Pulse Oximetry 97 % [facility] 10-24-2020 17:55-0500 Respiratory Rate 14 /min [facility] 07-26-2020 15:18-0400 BMI (Body Mass Index) 33.98 kg/m2 [facility] 07-26-[facility] 15:18-0400 Body Temperature 97.3 [degF] [facility] 07-26-2020 15:18-0400 [facility] [facility] 07-26-2020 15:18-0400 BP Di[facility] 72 mm[facility]Hg[facility] 15:18-0400 BP Systolic 125 mm[Hg] [facility] 15:18-0400 Height 152.4 cm [facility] 07-26-2020 15:18-0400 Pulse (Heart Rate) 73 /min [facility] 07-26-2020 15:18-0400 Pulse Oximetry 94 % [facility] 07-26-2020 15:18-0400 Respiratory Rate 16 /min [facility] 07-25-2020 18:46-0400 BMI (Body Mass Index) 35.15 kg/m2 [place] M[facility]ugh [facility] 07-25-2020 18:46-0400 Body Temperature 98.71 [degF] [place] [facility] 07-25-2020 18:46-0400 Body weight 81.65 kg [place] [facility] 07-25-2020 18:46-0400 BP Diastolic 81 mm[Hg] [place] [facility] 07-25-2020 18:46-0400 BP Systolic 147 mm[Hg] [place] [facility] 07-25-2020 18:46-0400 Height 152.4 cm [place] [facility] 07-25-2020 18:46-0400 Pulse (Heart Rate) 80 /min [place] [facility] 07-25-2020 18:46-0400 Pulse Oximetry 98 % [place] [facility] 07-25-2020 18:46-0400 Respiratory Rate 16 /min [place] [facility] 05-27-2020 15:31-0400 BMI (Body Mass Index) 32.01 kg/m2 [facility] 05-27-2020 15:31-0400 Body Temperature 97.3 [degF] [facility] 05-27-2020 15:31-0400 Body weight 79.38 kg [facility] 05-27-2020 15:31-0400 BP Diastolic 70 mm[Hg] [facility] 05-27-2020 15:31-0400 BP Systolic 110 mm[Hg] [facility] 05-27-2020 15:31-0400 Height 157.5 cm [facility] 05-27-2020 15:31-0400 Pulse (Heart Rate) 78 /min [facility] 05-27-2020 15:31-0400 Pulse Oximetry 93 % [facility] 05-27-2020 15:31-0400 Respiratory Rate 16 /min [facility] 11-27-2019 15:13-0500 BMI (Body Mass Index) 31.13 kg/m2 [facility] 11-27-2019 15:13-0500 Body Temperature 97.2 [degF] [facility] 11-27-2019 15:13-0500 Body weight 77.2 kg [facility] 11-27-2019 15:13-0500 BP Diastolic 78 mm[Hg] [facility] 11-27-2019 15:13-0500 BP Systolic 124 mm[Hg] Felix [facility] 11-27-2019 15:13-0500 [facility] 11-27-2019 15:13-0500 Pulse (Heart Rate) 74 /min [facility] 11-27-2019 15:13-0500 Pulse Oximetry 96 % [facility] 11-27-2019 15:13-0500 Respiratory Rate 16 /min [facility] 04-10-2019 09:56-0400 BMI (Body Mass Index) 33.98 kg/m2 [facility] 04-10-2019 09:56-0400 Body Temperature 98.8 [degF] [facility] 04-10-2019 09:56-0400 BP Diastolic 70 mm[Hg] [facility] 04-10-2019 09:56-0400 BP Systolic 114 mm[Hg] [facility] 04-10-2019 09:56-0400 Height 152.4 cm [facility] 04-10-2019 09:56-0400 Pulse (Heart Rate) 80 /min [facility] 04-10-2019 09:56-0400 Pulse Oximetry 93 % [facility] 04-10-2019 09:56-0400 Respiratory Rate 16 /min Jayme Villa [facility] 04-10-2019 09:56-0400 Weight 78.93 kg [facility] 01-02-2019 09:41-0400 BMI (Body Mass Index) 34.96 kg/m2 Mahsa Campoverde [facility] 01-02-2019 09:41-0400 Body Temperature 98.29 [degF] Mahsa Campoverde [facility] 01-02-2019 09:41-0400 BP Diastolic 73 mm[Hg] Mahsa Campoverde [facility] 01-02-2019 09:41-0400 BP Systolic 112 mm[Hg] Mahsa Campoverde [facility] 01-02-2019 09:41-0400 Height 152.4 cm Mahsa Campoverde [facility] 01-02-2019 09:41-0400 Pulse (Heart Rate) 71 /min Mahsa Campoverde [facility] 01-02-2019 09:41-0400 Respiratory Rate 14 /min Mahsa Campoverde [facility] 01-02-2019 09:41-0400 Weight 81.19 kg Mahsa Campoverde [facility] 11-11-2018 14:44-0500 BMI (Body Mass Index) 35.15 kg/m2 [facility] 11-11-2018 14:44-0500 Body Temperature 97.11 [degF] [facility] 11-11-2018 14:44-0500 BP Diastolic 74 mm[Hg] [facility] 11-11-2018 14:44-0500 BP Systolic 115 mm[Hg] [facility] 11-11-2018 14:44-0500 Height 152.4 cm [facility] 11-11-2018 14:44-0500 Pulse (Heart Rate) 85 /min [facility] 11-11-2018 14:44-0500 Pulse Oximetry 98 % [facility] 11-11-2018 14:44-0500 Respiratory Rate 16 /min [facility] 11-11-2018 14:44-0500 Weight 81.65 kg [facility] 06-27-2018 14:57-0400 BMI (Body Mass Index) 34.57 kg/m2 [facility] 06-27-2018 14:57-0400 Body Temperature 98.29 [degF] [facility] 06-27-2018 14:57-0400 BP Diastolic 86 mm[Hg] [facility] 06-27-2018 14:57-0400 BP Systolic 132 mm[Hg] [facility] 06-27-2018 14:57-0400 Pulse (Heart Rate) 78 /min [facility] 06-27-2018 14:57-0400 Weight 80.29 kg [facility] 05-31-2018 08:30-0400 BMI (Body Mass Index) 33.79 kg/m2 Noemy Alejo [facility] 05-31-2018 08:30-0400 Body Temperature 98.49 [degF] Noemy Alejo [facility] 05-31-2018 08:30-0400 BP Diastolic 88 mm[Hg] Noemy Alejo [facility] 05-31-2018 08:30-0400 BP Systolic 136 mm[Hg] Noemy Alejo [facility] 05-31-2018 08:30-0400 Pulse (Heart Rate) 88 /min Noemy Alejo [facility] 05-31-2018 08:30-0400 Pulse Oximetry 95 % Noemy Alejo [facility] 05-31-2018 08:30-0400 Weight 78.47 kg Noemy Alejo [facility] 05-26-2018 07:41-0400 Body Temperature 98.01 [degF] [facility] 05-26-2018 07:41-0400 BP Diastolic 68 mm[Hg] [facility] 05-26-2018 07:41-0400 BP Systolic 109 mm[Hg] [facility] 05-26-2018 07:41-0400 Pulse (Heart Rate) 67 /min [facility] 05-26-2018 07:41-0400 Pulse Oximetry 97 % [facility] 05-26-2018 07:41-0400 Respiratory Rate 16 /min [facility] 05-24-2018 08:22-0400 BMI (Body Mass Index) 33.84 kg/m2 [facility] 05-24-2018 08:22-[address] [facility] 05-24-2018 04:27-0400 Height 152.4 cm [facility] 04-15-2018 14:01-0400 BMI (Body Mass Index) 34.8 kg/m2 [facility] 04-15-2018 14:01-0400 BP Diastolic 78 mm[Hg] [facility] 04-15-2018 14:01-0400 BP Systolic 119 mm[Hg] [facility] 04-15-2018 14:01-0400 Height 152.4 cm [facility] 04-15-2018 14:01-0400 Weight 80.83 kg [facility] 04-10-2018 21:04-0400 BMI (Body Mass Index) 34.18 kg/m2 Jose Manuel Cain [facility] 04-10-2018 21:04-0400 Body Temperature 98.8 [degF] Jose Manuel [facility] 04-10-2018 21:04-0400 BP Diastolic 80 mm[Hg] Jose Manuel Cain [facility] 04-10-2018 21:04-0400 BP Systolic 158 mm[Hg] Jose Manuel Cain [facility] 04-10-2018 21:04-0400 Height 152.4 cm Jose Manuel [facility] 04-10-2018 21:04-0400 Pulse (Heart Rate) 79 /min Jose Manuel [facility] 04-10-2018 21:04-0400 Pulse Oximetry 100 % Jose Manuel [facility] 04-10-2018 21:04-0400 Respiratory Rate 16 /min Jose Manuel [facility] 04-10-2018 21:04-0400 Weight 79.38 kg Jose Manuel [facility] 03-28-2018 19:36-0400 BMI (Body Mass Index) 33.59 kg/m2 David Leslie [facility] 03-28-2018 19:36-0400 Body Temperature 98.49 [degF] David [facility] 03-28-2018 19:36-0400 BP Diastolic 87 mm[Hg] David [facility] 03-28-2018 19:36-0400 BP Systolic 138 mm[Hg] David [facility] 03-28-2018 19:36-0400 Pulse (Heart Rate) 102 /min David Leslie [facility] 03-28-2018 19:36-0400 Pulse Oximetry 98 % [facility] 03-28-2018 19:36-0400 Weight 78.02 kg David [facility] Encounters Encounter Date Encounter Type Care Provider Facility Start: 05-11-2025 End: 05-11-2025 Refill Jennifer C Sheets DO Work Phone: [facility] Comment on above: Refill Request Start: 04-07-2025 End: 04-08-2025 Refill Jennifer C Sheets DO Work Phone: [facility] Comment on above: Refill Request Start: 03-06-2025 End: 05-06-2025 Follow-up encounter Jennifer C Sheets DO Work Phone: [facility] Start: 03-06-2025 End: 03-06-2025 Patient encounter procedure Jennifer C Sheets DO Work Phone: [facility] Comment on above: Screening for lipid disorders (Primary Dx); Lumbar pain; Neck pain; Hyperglycemia; Osteoarthrosis, unspecified whether generalized or localized, other specified sites; Screening for blood disease; Screening for endocrine, metabolic and immunity disorder Start: 03-06-2025 End: 03-06-2025 ambulatory JENNIFER C SHEETS Facility:[facility] Start: 03-04-2025 End: 03-04-2025 Refill Jennifer C Sheets DO Work Phone: [facility] Comment on above: Refill Request Start: 01-21-2025 End: 01-21-2025 Telephone encounter Jennifer C Sheets DO Work Phone: [facility] Comment on above: Missed Appointment ( 3rd no show in 365 days (2nd letter sent)) Start: 12-22-2024 End: 12-22-[address] Terry Phillip DO Work Phone: [facility] Work Phone: Start: 12-22-2024 End: 12-22-[address] Marcial Ospina MD -Radiology, [facility] Work Phone: Start: 12-22-2024 End: 12-22-2024 ambulatory Zebulun Beam Facility:[facility] Start: 12-16-2024 End: 12-16-2024 Refill Jennifer C Sheets DO Work Phone: [facility] Comment on above: Refill Request Start: 12-02-2024 End: 12-02-2024 ambulatory [facility] ICU SPECIALIST-C Work Phone: [facility] Work Phone: Start: 12-02-2024 End: 12-02-[address] Marcial Ospina MD -Physical Therapy Work Phone: Start: 12-02-[address] Charles Ospina MD -Physical Therapy Work Phone: Start: 11-20-2024 End: 11-20-2024 ambulatory Jennifer C Sheets DO Work Phone: [facility] Start: 11-20-2024 End: 11-20-2024 Follow-up encounter Jennifer C Sheets DO Work Phone: [facility] Comment on above: ED Follow-up ([facility] ED 11/13/2024) Start: 11-18-2024 End: 11-18-2024 ambulatory Jennifer C Sheets DO Work Phone: [facility] Start: 11-18-2024 End: 11-18-2024 Follow-up encounter Jennifer C Sheets DO Work Phone: [facility] Comment on above: ED Follow-up ([facility] ER 11/13/24) Start: 11-13-2024 End: 11-13-2024 Emergency department patient visit Dr. Kelvin Nichols MD -Emergency Department Work Phone: Start: 11-11-2024 End: 11-12-2024 Refill Jennifer C Sheets DO Work Phone: [facility] Comment on above: Refill Request Start: 11-06-2024 [facility] Start: 11-05-2024 End: 11-05-2024 Patient encounter procedure [facility] ICU SPECIALIST-C -Laboratory, Perla Saravanan Start: 11-05-2024 End: 11-05-2024 ambulatory [facility] Facility:[facility] Start: 11-03-2024 End: 11-03-2024 Emergency department patient visit Dr. Terry Cottrell -Emergency Department Work Phone: Start: 10-13-2024 End: 10-13-2024 Refill Jennifer C Sheets DO Work Phone: [facility] Comment on above: Refill Request Start: 09-30-2024 End: 10-03-2024 ambulatory Jennifer C Sheets DO Work Phone: Chemotherapist Start: 09-30-2024 End: 10-03-2024 Home visit Jennifer C Sheets DO Work Phone: Chemotherapist Start: 09-12-2024 End: 09-12-2024 Refill Jennifer C Sheets DO Work Phone: [facility] Comment on above: Refill Request Refill Request (Pt w ould like medication refilled) Start: 08-14-2024 End: 08-14-2024 Telephone encounter Jennifer C Sheets DO Work Phone: [facility] Comment on above: Patient Update Start: 08-01-2024 End: 08-01-2024 Refill Jennifer C Sheets DO Work Phone: [facility] Comment on above: Refill Request Start: 07-03-2024 End: 07-03-2024 Refill Jennifer C Sheets DO Work Phone: [facility] Comment on above: Refill Request Start: 06-05-2024 Refill Nidiaelle Jessicad en SALVAGE DETERMINER.AQUARIUM TANK ATTENDANT Work Phone: [facility] Comment on above: Refill Request Start: 06-01-2024 Refill Jennifer C She ets DO Work Phone: [facility] Comment on above: Refill Request Start: 05-30-2024 Telephone encounter Jennifer C Sheets DO Work Phone: [facility] Comment on above: No Show (Pt no showe d for appt on 05/30/24 Pt called after appt time, 3:20 pm to cancel appt.) Start: 05-06-2024 Refill Jennifer C She ets DO Work Phone: [facility] Comment on above: Refill Request Start: 04-29-2024 Refill Jennifer C She ets DO Work Phone: [facility] Comment on above: Refill Request Start: 04-24-2024 Refill Jennifer C She ets DO Work Phone: [facility] Comment on above: Refill Request Start: 04-22-2024 End: 04-22-2024 Patient encounter procedure Jennifer C Sheets DO Work Phone: [facility] Comment on above: Chest pain, unspecif ied type (Primary Dx); ARAM (generalized anxiety disorder); Indigestion; Myalgia; Onychomycosis; Class 1 obesity due to excess calories with body mass index (BMI) of 30.0 to 30.9 in adult, unspecified whether serious comorbidity present Start: 04-22-2024 End: 04-22-2024 ambulatory JENNIFER C SHEETS Facility:[facility] Start: 04-10-2024 Telephone encounter Jennifer C Sheets DO Work Phone: [facility] Comment on above: Patient Question Start: 04-04-2024 Refill Jennifer C She ets DO Work Phone: [facility] Comment on above: Refill Request Start: 04-03-2024 ambulatory Keeley Anthony HORSEBACK EXCAVATOR [facility] Start: 04-02-2024 Emergency department patient visit JENNIFER HERNANDEZ Facility:[facility] Start: 03-31-2024 Refill Jennifer C She ets DO Work Phone: [facility] Comment on above: Refill Request Start: 03-28-2024 Refill Nidia deleon SALVAGE DETERMINER.AQUARIUM TANK ATTENDANT Work Phone: [facility] Comment on above: Refill Request Start: 03-27-2024 End: 03-27-2024 Patient encounter procedure Nidia Yang SALVAGE DETERMINER.AQUARIUM TANK ATTENDANT Work Phone: [facility] Comment on above: Ulcerative colitis w ith rectal bleeding, unspecified location (HCC) (Primary Dx); Poison cheo; ARAM (generalized anxiety disorder); Hypertension, essential; Herpes simplex vulvovaginitis; Toenail fungus Start: 03-24-2024 Telephone encounter Jennifer C Sheets DO Work Phone: [facility] Start: 03-20-2024 [facility] Keeley Anthony HORSEBACK EXCAVATOR [facility] Start: 03-19-2024 End: 03-20-2024 Emergency department patient visit JENNIFER C MARY Facility:[facility] Start: 03-04-2024 Refill Jennifer C Sabine ets DO Work Phone: [facility] Comment on above: Refill Request Start: 02-18-2024 Telephone encounter Judit Aguilar APRN.AQUARIUM TANK ATTENDANT Work Phone: [facility] Comment on above: No Show (Second no s how in 365 days. ) Start: 02-03-2024 Refill Jennifer C Sabine ets DO Work Phone: [facility] Comment on above: Refill Request Start: 01-22-2024 End: 01-22-2024 Patient encounter procedure Jennifer C Sheets DO Work Phone: [facility] Comment on above: Diarrhea, unspecifie d type (Primary Dx); Left sided sciatica; Itching; Osteoarthrosis, unspecified whether generalized or localized, other specified sites; OAB (overactive bladder); ARAM (generalized anxiety disorder); Hyperglycemia; Leukemoid reaction; Screening for lipid disorders; Herpes simplex vulvovaginitis Start: 12-31-2023 Refill Jennifer C Sabine ets DO Work Phone: [facility] Comment on above: Refill Request Start: 12-26-2023 Telephone encounter Jennifer C Sheets DO Work Phone: [facility] Comment on above: Missed Appointment ( 1st no show in 365 days (1st letter sent)) Start: 12-03-2023 ambulatory Sonia Anderson [facility] Comment on above: ED Outreach ([place] [facility] 11/30/23) Start: 12-03-2023 Telephone encounter Jennifer C Sheets DO Work Phone: [facility] Comment on above: Patient Question Start: 11-20-2023 End: 11-20-2023 ambulatory JENNIFER SHEETS Facility:[facility] Start: 09-26-2023 End: 09-26-2023 Patient encounter procedure Jennifer C Sheets DO Work Phone: [facility] Comment on above: Well adult exam ([facility] Dx); Left sided sciatica; Osteoarthrosis, unspecified whether generalized or localized, other specified sites; Recurrent major depressive disorder, in remission (HCC); Ulcerative pancolitis without complication (HCC); History of migraine; ARAM (generalized anxiety disorder); OAB (overactive bladder); Screening mammogram, encounter for; Dermatitis Start: 09-26-2023 End: 09-26-2023 Patient encounter status Jennifer Hernandez DO Work Phone: [facility] Work Phone: Start: 07-09-2023 Telephone encounter Ag Famp Work Phone: [facility] Comment on above: Patient Question Start: 06-06-[address] [facility] Start: 05-08-2023 End: 05-08-2023 Office outpatient visit 25 minutes Mateusz Linares DO [facility] Comment on above: Anxiety (Primary Dx) ; Mixed incontinence; Cervicalgia; Depression, unspecified depression type; Onychomycosis Start: 04-27-2023 Refill Mateusz Linares DO [facility] Comment on above: Mixed incontinence ( Primary Dx) Start: 04-26-2023 Refill Mateusz Linares DO [facility] Comment on above: Onychomycosis; Cervicalgia Start: 04-20-2023 Refill Mateusz Linares DO [facility] Comment on above: Cervicalgia Start: 04-19-2023 Refill Mateusz Linares DO [facility] Comment on above: Cervicalgia Start: 04-19-2023 End: 04-19-2023 Postop follow up visit related to original px Carolina Uribe [facility] Work Phone: [facility] Comment on above: S/P right rotator cu ff repair (Primary Dx) Start: 03-22-2023 End: 03-22-2023 Postop follow up visit related to original px Carolina Uribe OPERATING ROOM TECHNICIAN Work Phone: [facility] Comment on above: S/P right rotator cu ff repair (Primary Dx) Start: 03-07-2023 End: 03-07[facility] Start: 03-04-2023 Orders Only Mateusz Linares DO Work Phone: [facility] Comment on above: Depression, unspecif ied depression type Start: 02-28-2023 End: 02-28-2023 Refill Mateusz Linares DO Work Phone: [facility] Start: 02-28-2023 End: 02-28-2023 [facility] Start: 02-28-2023 End: 02-28-2023 Office consultation new/estab patient 40 min Kota Landa DO Work Phone: [facility] Comment on above: Pre-op testing (Prim jigar Dx); Rotator cuff syndrome of right shoulder; Rotator cuff tear arthropathy of both shoulders; Opiate abuse, episodic (HCC) Start: 02-28-2023 End: 02-28-2023 Patient encounter status Kota Landa DO Work Phone: [facility] Work Phone: Start: 02-27-2023 Refill Mateusz Linares DO Work Phone: [facility] Comment on above: Depression, unspecif ied depression type Start: 02-21-2023 Refill Mateusz Linares DO Work Phone: [facility] Start: 02-20-2023 Admission to [facility] Kota Landa DO Work Phone: [facility] Comment on above: Rotator cuff tear ar thropathy of right shoulder (Primary Dx); Traumatic complete tear of right rotator cuff, subsequent encounter Start: 02-20-2023 End: 02-20-2023 Office outpatient new 45 minutes Zina Bustos DO Work Phone: [facility] Comment on above: Traumatic complete t ear of right rotator cuff, subsequent encounter (Primary Dx); Rotator cuff tear arthropathy of right shoulder Start: 02-19-2023 Refill Mateusz Pothen DO Work Phone: [facility] Comment on above: Cervicalgia Start: 12-07-2022 End: 12-07-2022 Office outpatient visit 15 minutes Ely Thaliabecky DO Work Phone: [facility] Comment on above: Cervicalgia (Primary Dx); Somatic dysfunction of back; Somatic dysfunction of upper extremity; Somatic dysfunction of lumbar region; Somatic dysfunction of thoracic region; Somatic dysfunction of cervical region; Somatic dysfunction of pelvis region Start: 12-07-2022 End: 12-07-2022 Office outpatient visit 25 minutes Ely Cabello DO Work Phone: [facility] Comment on above: Cervicalgia (Primary Dx); Somatic dysfunction of back; Somatic dysfunction of upper extremity; Somatic dysfunction of lumbar region; Somatic dysfunction of thoracic region; Somatic dysfunction of cervical region; Somatic dysfunction of pelvis region Start: 11-22-2022 Encounter for genera l adult medical examination without abnormal findings [facility] Start: 11-22-2022 Patient encounter status Irina Linares DO Work Phone: [facility] Start: 11-20-2022 End: 11-24-2022 ambulatory [facility] Start: 11-20-2022 End: 11-24-2022 Encounter for general adult medical examination without abnormal findings [facility] Start: 11-20-2022 End: 05-08-2023 Patient encounter status Mateusz Linares DO Work Phone: [facility] Start: 11-20-2022 End: 11-20-2022 Periodic preventive med est patient 40-64yrs Mateusz Linares DO Work Phone: [facility] Comment on above: Wellness examination (Primary Dx); Cervicalgia; Depression, unspecified depression type; Need for pneumococcal vaccine; Flu vaccine need; Mixed incontinence; Dyspnea on exertion; Cystocele without uterine prolapse; Lazy eye of left side; History of cigarette smoking; Encounter for screening mammogram for malignant neoplasm of breast; Encounter for screening colonoscopy Start: 11-06-2022 End: 11-06-2022 Office outpatient visit 15 minutes Ortega Hernandez DO Work Phone: [facility] Comment on above: Acute conjunctivitis of left eye, unspecified acute conjunctivitis type (Primary Dx) Start: 10-17-2022 Orders Only Mateusz Linares DO Work Phone: [facility] Comment on above: Cervicalgia Cervicalgia (Primary Dx) Start: 09-12-2022 Refill Mateusz Linares DO Work Phone: [facility] Comment on above: Cervicalgia; Depression, unspecified depression type Start: 09-11-2022 End: 09-11-2022 Office outpatient visit 25 minutes Govind Patiño Marcelle DO Work Phone: [facility] Comment on above: Onychomycosis (Prima ry Dx); Dry skin Start: 09-08-2022 Refill Mateusz Linares DO Work Phone: [facility] Comment on above: Cervicalgia Start: 05-15-2022 End: 05-15-2022 Office outpatient visit 25 minutes Yomi Ivey DO Work Phone: [facility] Comment on above: Chronic pain of both shoulders (Primary Dx); Somatic dysfunction of upper extremity; Somatic dysfunction of lower extremity; Rotator cuff tear arthropathy of right shoulder; Somatic dysfunction of lumbar region; Piriformis syndrome of both sides Chronic pain of both shoulders (Primary Dx); Somatic dysfunction of upper extremity; Somatic dysfunction of lower extremity; Rotator cuff tear arthropathy of right shoulder; Somatic dysfunction of lumbar region; Piriformis syndrome of both sides; Somatic dysfunction of thoracic region; Somatic dysfunction of cervical region Start: 05-12-2022 End: 05-13-2022 [facility] Start: 05-05-2022 End: 05-05-2022 Office outpatient visit 15 minutes Mateusz Linares DO Work Phone: [facility] Comment on above: Chronic pain of both shoulders (Primary Dx); Piriformis syndrome of both sides; Somatic dysfunction of upper extremity; Somatic dysfunction of thoracic region; Somatic dysfunction of lower extremity Start: 05-05-2022 End: 05-05-2022 Office outpatient visit 25 minutes Mateusz Linares DO Work Phone: [facility] Comment on above: Chronic pain of both shoulders (Primary Dx); Piriformis syndrome of both sides; Somatic dysfunction of upper extremity; Somatic dysfunction of thoracic region; Somatic dysfunction of lower extremity Start: 04-17-2022 Refill Mateusz Linares DO Work Phone: [facility] Comment on above: Cervicalgia Start: 04-17-2022 End: 04-17-2022 Office outpatient visit 25 minutes Peter Mendoza DO Work Phone: [facility] Comment on above: Weakness of shoulder (Primary Dx); Chronic midline low back pain without sciatica; Cervicalgia; Somatic dysfunction of head region; Somatic dysfunction of pelvis region; Somatic dysfunction of lumbar region; Somatic dysfunction of upper extremity; Somatic dysfunction of rib cage region; Somatic dysfunction of cervical region; Somatic dysfunction of thoracic region Start: 03-29-2022 End: 03-30-2022 ambulatory [facility] Start: 01-05-2022 End: 01-05-2022 Office outpatient visit 15 minutes [facility] DO Work Phone: [facility] Comment on above: Chronic left shoulde r pain (Primary Dx); Weakness of shoulder Start: 12-12-2021 End: 12-12-2021 Phys/qhp telephone evaluation 11-20 min Radha Francois DO Work Phone: [facility] Comment on above: Nausea (Primary Dx); Fatigue, unspecified type; Cervicalgia; Depression, unspecified depression type Start: 10-07-2021 End: 10-07-2021 ambulatory [facility] Start: 10-07-2021 End: 10-07-2021 Phys/qhp telephone evaluation 5-10 min Peter Mendoza DO Work Phone: [facility] Comment on above: Upper respiratory tr act infection, unspecified type (Primary Dx) Start: 09-14-2021 End: 09-14-2021 Office outpatient visit 25 minutes Peter Mendoza DO Work Phone: [facility] Comment on above: Cervicalgia (Primary Dx); Chronic midline low back pain without sciatica; Irritable bowel syndrome with diarrhea; Somatic dysfunction of head region; Somatic dysfunction of cervical region; Somatic dysfunction of thoracic region; Somatic dysfunction of rib cage region; Somatic dysfunction of lumbar region; Somatic dysfunction of pelvis region; Somatic dysfunction of upper extremity; Somatic dysfunction of lower extremity; Somatic dysfunction of abdominal region; Irritable bowel syndrome, unspecified type Start: 09-05-2021 End: 09-05-2021 Office outpatient visit 25 minutes Lamonte Cortez DO Work Phone: [facility] Comment on above: Hip mass, right (Lavonne rodrigo Dx) Start: 08-30-2021 End: 08-30-2021 Office outpatient visit 25 minutes Peter Mendoza DO Work Phone: [facility] Comment on above: Chronic midline low back pain without sciatica (Primary Dx); DDD (degenerative disc disease), cervical; Dyspnea on exertion; 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; Somatic dysfunction of head region; Somatic dysfunction of cervical region; Somatic dysfunction of thoracic region; Somatic dysfunction of rib cage region; Somatic dysfunction of lumbar region; Somatic dysfunction of pelvis region; Somatic dysfunction of sacral region; Somatic dysfunction of upper extremity; Somatic dysfunction of lower extremity; Somatic dysfunction of abdominal region Start: 08-30-2021 End: 08-30-2021 Patient encounter status Peter Mendoza DO Work Phone: [facility] Start: 08-12-2021 End: 08-12-2021 Office outpatient visit 15 minutes Peter Mendoza DO Work Phone: [facility] Comment on above: Chronic midline low back pain without sciatica (Primary Dx); Somatic dysfunction of head region; Somatic dysfunction of cervical region; Somatic dysfunction of thoracic region; Somatic dysfunction of rib cage region; Somatic dysfunction of lumbar region; Somatic dysfunction of pelvis region; Somatic dysfunction of sacral region; Somatic dysfunction of upper extremity; Somatic dysfunction of lower extremity Start: 07-15-2021 End: 07-15-2021 ambulatory PETER MENDOZA Facility:[facility] Start: 07-07-2021 End: 07-07-2021 Office outpatient visit 25 minutes Peter Mendoza DO Work Phone: [facility] Comment on above: Chronic midline low back pain without sciatica (Primary Dx); Depression, unspecified depression type; Tobacco use disorder; Somatic dysfunction of thoracic region; Influenza vaccination administered at current visit; Somatic dysfunction of rib cage region; Somatic dysfunction of lumbar region; Somatic dysfunction of pelvis region; Somatic dysfunction of sacral region Start: 06-13-2021 ambulatory BRENNAN MARTIN Facility :[facility] Start: 06-07-2021 End: 06-07-2021 Office outpatient visit 25 minutes Peter Mendoza DO Work Phone: [facility] Comment on above: Cervicalgia (Primary Dx); Chronic midline low back pain without sciatica; Bilateral shoulder pain, unspecified chronicity; Depression, unspecified depression type; Somatic dysfunction of head region; Somatic dysfunction of cervical region; Somatic dysfunction of thoracic region; Somatic dysfunction of rib cage region; Somatic dysfunction of lumbar region; Somatic dysfunction of pelvis region; Somatic dysfunction of sacral region; Somatic dysfunction of abdominal region Start: 05-04-2021 End: 05-05-2021 ambulatory [facility] Facility:[facility] Start: 05-02-2021 End: 05-02-2021 ambulatory [facility] Start: 05-02-2021 End: 05-02-2021 Subsequent hospital visit by physician Thaddeus Brush [facility] DO Work Phone: [facility] Comment on above: Arrived Start: 05-02-2021 End: 05-02-2021 Office outpatient visit 25 minutes Peter Mendoza DO Work Phone: [facility] Comment on above: Chronic diarrhea of unknown origin; Neck pain; Bilateral shoulder pain, unspecified chronicity; Chronic midline low back pain without sciatica; Glucose intolerance (impaired glucose tolerance) Start: 04-23-2021 End: 04-27-2021 ambulatory [facility] Start: 04-22-2021 End: 04-22-2021 Subsequent hospital visit by physician Madhuri Whatley DO Work Phone: [facility] Comment on above: Arrived Start: 04-22-2021 End: 04-22-2021 Office outpatient visit 25 minutes Peter Mendoza DO Work Phone: [facility] Comment on above: Chronic diarrhea of unknown origin; Abdominal pain, unspecified abdominal location; Leukocytosis, unspecified type Start: 04-21-2021 ambulatory PETER MENDOZA Facility: [facility] Start: 04-21-2021 ambulatory ADELAIDA Perdomo y:[facility] Start: 04-18-2021 ambulatory MAREK ZIEGLER Facility:[facility] Start: 04-17-2021 End: 04-17-2021 Refill Peter Mendoza DO Work Phone: [facility] Comment on above: Chronic midline low back pain without sciatica Start: 04-14-2021 End: 04-14-2021 Orders Only Peter Mendoza DO Work Phone: [facility] Start: 04-14-2021 End: 04-14-2021 Office outpatient visit 25 minutes Sue Diaz DO Work Phone: [facility] Comment on above: Acute diarrhea (Prim jigar Dx); Chronic diarrhea of unknown origin; Dysuria Start: 03-28-2021 End: 03-28-2021 Office outpatient visit 25 minutes Peter Mendoza DO Work Phone: [facility] Comment on above: C. difficile colitis ; Abdominal pain, unspecified abdominal location Start: 03-25-2021 ambulatory SELF SELF Facility:[facility] Start: 03-22-2021 End: 03-22-2021 Emergency department patient visit Chico Mchugh MD Work Phone: [facility] Start: 03-17-2021 End: 03-17-2021 Orders Only Peter Mendoza DO Work Phone: [facility] Comment on above: C. difficile colitis Start: 03-14-2021 End: 03-14-2021 Transitional care manage srvc 14 day discharge Peter Mendoza DO Work Phone: [facility] Comment on above: C. difficile colitis ; Ulcerative colitis with other complication, unspecified location (HCC); Dental infection; Drug abuse in remission (HCC); Right shoulder pain, unspecified chronicity; Chronic midline low back pain without sciatica; Somatic dysfunction of upper extremity; Somatic dysfunction of lumbar region Start: 03-11-2021 End: 03-11-2021 Refill Trisha Ely DO Work Phone: [facility] Comment on above: Chronic midline low back pain without sciatica Start: 03-01-2021 End: 03-05-2021 Evaluation and management of inpatient TRISHA Brendon CHACORTARAMEZ [facility] Start: 03-01-2021 End: 03-05-2021 Evaluation and management of inpatient Kumar Lynn MD Work Phone: [facility]ation Start: 03-01-2021 End: 03-01-2021 Phys/qhp telephone evaluation 21-30 min Jayme Hartman DO Work Phone: [facility] Comment on above: Ulcerative colitis w ith other complication, unspecified location (HCC) (Primary Dx); Gastroesophageal reflux disease, unspecified whether esophagitis present Start: 03-01-2021 End: 03-01-2021 Telemedicine consultation with patient Jayme Hartman DO Work Phone: [facility] Comment on above: Upper respiratory tr act infection, unspecified type (Primary Dx) Start: 02-28-2021 End: 02-28-2021 Refill Ishmarlon Moseley DO Work Phone: [facility] Comment on above: Chronic midline low back pain without sciatica Start: 01-03-2021 End: 01-03-2021 Orders Only Raoul Lawton Work Phone: [facility] Start: 10-24-2020 End: 10-24-2020 Emergency department patient visit Caitlyn Marte Work Phone: [facility] Comment on above: Laceration of right hand without foreign body, initial encounter (Primary Dx) Start: 07-26-2020 End: 07-26-2020 Office outpatient visit 25 minutes Felix Will Work Phone: [facility] Comment on above: Moderate episode of recurrent major depressive disorder (HCC) (Primary Dx); Chronic midline low back pain without sciatica; Need for influenza vaccination; Somatic dysfunction of lumbar region; Somatic dysfunction of thoracic region; ARAM (Generalized Anxiety Disorder) Start: 07-25-2020 End: 07-25-2020 Emergency department patient visit Chico Suggs Jeison Work Phone: [facility] Comment on above: Acute exacerbation o f chronic low back pain (Primary Dx) Start: 05-28-2020 End: 05-28-2020 Office outpatient visit 25 minutes Peter Mendoza Work Phone: [facility] Comment on above: [place] grade 2 cystocele; Rectocele; Polyuria; Chronic midline low back pain without sciatica; Skin lesion of breast Start: 11-27-2019 End: 11-27-2019 Office outpatient visit 15 minutes Felix Will Work Phone: [facility] Comment on above: Chronic midline low back pain without sciatica (Primary Dx); Arthralgia of right knee; Prediabetes Start: 04-10-2019 End: 04-10-2019 Office outpatient visit 25 minutes Jayme Villa Work Phone: [facility] Comment on above: Acute non-recurrent frontal sinusitis (Primary Dx); Chronic midline low back pain without sciatica; Somatic dysfunction of head region; Somatic dysfunction of cervical region; Somatic dysfunction of thoracic region; Somatic dysfunction of lumbar region; Prediabetes; Hyperkalemia Start: 01-02-2019 End: 01-02-2019 Office outpatient visit 25 minutes Mahsa Campoverde Work Phone: [facility] Comment on above: Chronic midline low back pain without sciatica (Primary Dx); Gout, unspecified cause, unspecified chronicity, unspecified site; Prediabetes; Snoring Start: 11-11-2018 End: 11-11-2018 Office outpatient visit 25 minutes Trisha Ely Work Phone: [facility] Comment on above: Impaired fasting glu cose (Primary Dx); Prediabetes; Tobacco use disorder; ARAM (Generalized Anxiety Disorder); Osteoarthritis, unspecified osteoarthritis type, unspecified site; Snoring Start: 07-25-2018 End: 07-25-2018 Patient encounter Didi Earl Work Phone: [facility] Comment on above: Lymph nodes enlarged Swelling of lymph no brittany Start: 06-27-2018 End: 06-27-2018 Office outpatient visit 15 minutes Charlesmarlon Lorelei Work Phone: [facility] Comment on above: Ulcerative colitis w ith complication, unspecified location (HCC) (Primary Dx); Lymph nodes enlarged; Reflux esophagitis; Gout, unspecified cause, unspecified chronicity, unspecified site; Neuropathy Start: 05-31-2018 End: 05-31-2018 Office outpatient new 10 minutes Noemy Alejo Work Phone: [facility] Start: 05-24-2018 End: 05-26-2018 Emergency department patient visit Peter Salinas Work Phone: [address] Start: 04-15-2018 End: 04-15-2018 Office outpatient new 30 minutes Cheng Grisel Salinas Work Phone: [facility] Start: 04-10-2018 End: 04-10-2018 Emergency department patient visit Jose Manuel Cain Work Phone: [facility] Start: 03-28-2018 End: 03-28-2018 Ambulatory NYDIA BALDO [facility] Start: 03-28-2018 End: 03-28-2018 Office outpatient visit 15 minutes David Leslie Work Phone: [facility] [place] Start: 03-19-2015 Refill Kaitlynn Duval DO [facility] Procedures Date Procedure Procedure Detail Performing Clinician Start: 03-06-2025 Lipid 1996 panel - Serum or Plasma Jennifer Sheets DO Work Phone: Start: 03-03-2025 X-ray of cervical spine Dr. Terry Phillip DO Work Phone: Start: 11-03-2024 CT of head without contrast Dr. Terry Phillip DO Work Phone: Start: 11-03-2024 MRI of lumbar spine Dr. Terry Phillip DO Work Phone: Start: 04-22-2024 Ecg routine ecg w/least 12 lds w/i&r Jennifer Hernandez DO Work Phone: Start: 02-28-2023 Basic metabolic panel calcium total Kota Landa DO Work Phone: Start: 11-20-2022 Lipid 1996 panel - Serum or Plasma Jennifer Mary DO Work Phone: Start: 10-22-2021 Colonoscopy Jennifer Hernandez DO Work Phone: Start: 10-04-2021 Mammography Peter Kelly DO Work Phone: Start: 05-02-2021 End: 05-02-2021 Radex shoulder complete minimum 2 views Peter Russel Mendoza DO Work Phone: Start: 04-22-2021 Ct abdomen & pelvis w/contrast material Peter Mendoza DO Work Phone: Start: 04-14-2021 Comprehensive metabolic panel Sue Diaz DO Work Phone: Start: 04-14-2021 Urnls dip stick/tablet rgnt auto w/o microscopy Sue Diaz DO Work Phone: Start: 04-08-2021 Colonoscopy Peter Kelly DO Work Phone: Start: 03-22-2021 Ct angiography chest w/contrast/noncontrast Nicholas Agosto DO Work Phone: Start: 03-22-2021 Ecg routine ecg w/least 12 lds w/i&r Chico Mchugh MD Work Phone: Start: 03-22-2021 Urnls dip stick/tablet reagent auto microscopy Chico Mchugh MD Work Phone: Start: 03-22-2021 Comprehensive metabolic panel Nicholas Current DO Work Phone: Start: 03-22-2021 RENO TOP Nicholas Current DO Work Phone: Start: 03-22-2021 Hepatic function panel Nicholas Current DO Work Phone: Start: 03-22-2021 LAVENDER TOP Nicholas Current DO Work Phone: Start: 03-22-2021 LIGHT BLUE TOP Nicholas Current DO Work Phone: Start: 03-22-2021 LIGHT GREEN TOP Nicholas Current DO Work Phone: Start: 03-22-2021 MINT GREEN TOP Nicholas Current DO Work Phone: Start: 03-22-2021 RAINBOW DRAW Nicholas Current DO Work Phone: Start: 03-05-2021 Blood count complete automated Josh Riley DO Work Phone: Start: 03-03-2021 Blood count complete automated Gena Mcpherson A[employer] TANK ATTENDANT Work Phone: Start: 03-02-2021 Basic metabolic panel calcium total Josh Riley DO Work Phone: Start: 03-01-2021 Iadna-dna/rna gi pthgn multiplex probe tq 12-25 Josh Riley DO Work Phone: Start: 03-01-2021 SARS-CoV-2 (COVID-19) RNA [Presence] in Respiratory specimen by ANGELIQUE with probe detection Thaddeus Ghosh PA-C Work Phone: Start: 03-01-2021 Ct abdomen & pelvis w/contrast material Jennifer Lentz A[employer] T[employer] ATTENDANT Work Phone: Start: 03-01-2021 Comprehensive metabolic panel Jennifer Lentz A[employer]AR[employer] T[employer] ATTENDANT Work Phone: Start: 03-01-2021 RENO TOP Kumar Frausto Work Phone: Start: 03-01-2021 Hepatic function panel Jennifer Lentz A[employer]AR[employer] T[employer] ATTENDANT Work Phone: Start: 03-01-2021 LIGHT GREEN TOP Kumar Gonsalo Sorto D Work Phone: Start: 03-01-2021 PINK TOP Kumar Riveracorrie Sorto D Work Phone: Start: 03-01-2021 RAINBOW DRAW Kumar Riveracorrie Sorto D Work Phone: Start: 03-01-2021 Urnls dip stick/tablet reagent auto microscopy Jennifer Lentz A[employer] T[employer] ATTENDANT Work Phone: Start: 10-24-2020 Radex hand minimum 3 views Caitlyn Onpreston s Work Phone: Start: 01-02-2019 Comprehensive metabolic 2000 panel - Serum or Plasma Mahsa Campoverde Work Phone: Start: 11-11-2018 Hemoglobin A1c/Hemoglobin.total in Blood Trisha Ely Work Phone: Start: 08-19-2018 Colonoscopy Trisha Ely Start: 07-25-2018 End: 07-25-2018 Us breast uni real time with image complete Didi Marquez Earl Work Phone: Start: 07-25-2018 End: 07-25-2018 MG Breast - bilateral diagnostic Ishmail Saccoh Work Phone: Start: 07-25-2018 Mammography Trisha Ely Start: 04-15-2018 Microscopic observation [Identifier] in Cervix by Cyto stain Trisha Ely History of repair of musculotendinous cuff of shoulder S/P right rotator cuff repair Carolina Uribe OPERATING ROOM TECHNICIAN Work Phone: History of repair of musculotendinous cuff of shoulder S/P right rotator cuff repair Carolina Uribe OPERATING ROOM TECHNICIAN Work Phone: Plan of Treatment Date Care Activity Detail Author Start: 2038 RSV Vaccine (1 - 1-dose 75+ series) RSV Vaccine (1 - 1-dose 75+ series) [facility] Start: 10-22-2031 Screening for malignant neoplasm of colon Colorectal Cancer Screening [facility] Comment on above: Postponed from 2008 (Postponed - N ot Clinically Indicated) Start: 10-24-2030 Tetanus vaccination Tetanus: Every 10yrs [facility] Start: 10-24-2030 Urine microalbumin profile DTaP,Tdap,Td Vaccine (3 - Td or Tdap) [facility] Start: 03-06-2030 Lipid panel Lipid Screening [facility] Start: 2028 Pneumococcal Vaccine: Ped or At-Risk (2 of 2 - PPSV23) Pneumococcal Vaccine: Ped or At-Risk (2 of 2 - PPSV23) [facility] Start: 03-06-2028 Diabetes Screening Diabetes Screening [facility] Start: 11-20-2027 Lipid panel Lipid Screening [facility] Start: 03-19-2027 Diabetes Screening Diabetes Screening [facility] Start: 11-30-2026 Diabetes Screening Diabetes Screening [facility] Start: 04-08-2026 Screening for malignant neoplasm of colon [facility] Start: 03-06-2026 Covid-19 Vaccine ( season) Covid-19 Vaccine ( season) [facility] Comment on above: Postponed from 06/22/2024 (Declined at t his time) Start: 03-06-2026 Shingrix Vaccine (2 of 2) Shingrix Vaccine (2 of 2) [facility] Comment on above: Postponed from 01/03/2021 (Declined at t his time) Start: 02-28-2026 Diabetes Screening Diabetes Screening [facility] Start: 06-22-2025 Influenza vaccination [facility] Start: 06-08-2025 End: 06-08-2025 Patient encounter procedure 06/08/2025 9:00 AM EDT Office Visit [facility] [address] [place] [address] Jennifer Hernandez DO [address] [place] [address] 3 mon back pain [facility] Comment on above: 3 mon back pain Start: 03-06-2025 End: 03-06-2025 Patient encounter procedure 03/06/2025 9:00 AM EDT Office Visit [facility] [address] [place] [address] Jennifer Hernandez DO [address] [place] [address] back pain [facility] Comment on above: back pain Start: 02-12-2025 Tetanus vaccination [facility] Start: 01-21-2025 End: 01-21-2025 Patient encounter procedure 01/21/2025 10:00 AM EDT Office Visit [facility] [address] [place] [address] Jennifer Hernandez DO [address] [place] [address] well visit [facility] Comment on above: well visit Start: 11-13-2024 [facility] Start: 11-03-2024 [facility] Start: 06-22-2024 Covid-19 Vaccine ( season) Covid-19 Vaccine ( season) [facility] Start: 06-22-2024 Covid-19 Vaccine ( season) Covid-19 Vaccine ( season) [facility] Start: 06-22-2024 Influenza vaccination [facility] Start: 06-06-2024 End: 09-05-2024 Hepatic function 2000 panel - Serum or Plasma HEPATIC FUNCTION PNL Lab Routine Toenail fungus Expected: 06/06/2024, Expires: 09/05/2024 [facility] Work Phone: Comment on above: Expected: 06/06/2024, Expires: Start: 05-30-2024 End: 05-30-2024 Patient encounter procedure 05/30/2024 3:00 PM EDT Office Visit [facility] [address] [place] [address] Jennifer Hernandez DO [address] [place] [address] 4 week follow up [facility] Comment on above: 4 week follow up Start: 04-22-2024 End: 04-22-2024 Patient encounter procedure 04/22/2024 4:00 PM EDT Office Visit [facility] [address] [facility] [place] [address] Jennifer Hernandez DO [address] [place] [address] 3 MTH F/U Neuropathy [facility] Comment on above: 3 MTH F/U Neuropathy Start: 04-22-2024 End: 07-22-2024 Cobalamin (Vitamin B12) [Mass/volume] in Serum or Plasma VITAMIN B12 Lab Routine Myalgia Expected: 04/22/2024, Expires: 07/22/2024 [facility] Comment on above: Expected: 04/22/2024, Expires: Start: 04-22-2024 End: 07-22-2024 Thyrotropin [Units/volume] in Serum or Plasma THYROID STIMULATING HORMONE Lab Routine Myalgia Expected: 04/22/2024, Expires: 07/22/2024 [facility] Work Phone: Comment on above: Expected: 04/22/2024, Expires: Start: 03-27-2024 End: 03-27-2024 Patient encounter procedure [facility] Comment on above: Physical lm for pt of insuran ce issues Start: 03-22-2024 End: 04-22-2024 Hemoglobin A1c in Blood HGB A1C Lab Routine Hyperglycemia Expected: 03/22/2024, Expires: 04/22/2024 [facility] Work Phone: Comment on above: Expected: 03/22/2024, Expires: Start: 01-22-2024 End: 04-22-2024 CBC W Auto Differential panel - Blood CBC + DIFF Lab Routine Leukemoid reaction Expected: 01/22/2024, Expires: 04/22/2024 [facility] Work Phone: Comment on above: Expected: 01/22/2024, Expires: 4 Start: 01-22-2024 End: 04-22-2024 Comprehensive metabolic 2000 panel - Serum or Plasma COMP METABOLIC PANEL Lab Routine Hyperglycemia Expected: 01/22/2024, Expires: 04/22/2024 [facility] Work Phone: Comment on above: Expected: 01/22/2024, Expires: 4 Start: 01-22-2024 End: 04-22-2024 Giardia lamblia+Cryptosporidium sp Ag [Presence] in Stool by Immunoassay CRYPTOSPORIDIUM AND GIARDIA ANTIGENS BY EIA Microbiology Routine Diarrhea, unspecified type Expected: 01/22/2024, Expires: 04/22/2024 [facility] Work Phone: Comment on above: Expected: 01/22/2024, Expires: Start: 01-22-2024 End: 04-22-2024 Lipid 1996 panel - Serum or Plasma LIPID PANEL BASIC Lab Routine Screening for lipid disorders Expected: 01/22/2024, Expires: 04/22/2024 [facility] Work Phone: Comment on above: Expected: 01/22/2024, Expires: Start: 11-20-2023 History and physical examination, annual for health maintenance Wellness Visit [facility] Start: 08-19-2023 Protein mass conc COLONOSCOPY [facility] Start: 08-19-2023 Screening for malignant neoplasm of colon [facility] Start: 2023 Hepatitis B Vaccine (1 of 3 - Risk 3-dose series) Hepatitis B Vaccine (1 of 3 - Risk 3-dose series) [facility] Start: 2023 RSV Vaccine (1 - 1-dose 60+ series) RSV Vaccine (1 - 1-dose 60+ series) [facility] Start: 06-22-2023 Covid-19 Vaccine (2022- season) Covid-19 Vaccine ( season) [facility] Start: 06-22-2023 Influenza vaccination [facility] Start: 05-31-2023 End: 05-31-2023 Patient encounter procedure 05/31/2023 10:15 AM EDT Office Visit [facility] [address] [place] [address] Carolina Uribe CNS [address] [place] [address] [facility] Start: 05-08-2023 End: 05-08-2023 Patient encounter procedure 05/08/2023 2:20 PM EDT Office Visit [facility] [address] [facility] [address] [place] [address] Mateusz Linares DO [address] [place] [address] [facility] Start: 05-01-2023 End: 05-01-2023 Patient encounter procedure [facility] Start: 04-19-2023 End: 04-19-2023 Patient encounter procedure 04/19/2023 10:15 AM EDT Office Visit [facility] [address] [place] [address] Carolina Uribe CNS [address] [place] [address] [facility] Start: 04-15-2023 Screening for malignant neoplasm of cervix PAP SMEAR [facility] Start: 03-22-2023 End: 03-22-2023 Patient encounter procedure 03/22/2023 2:45 PM EDT Office Visit [facility] [address] [place] [address] Carolina Uribe CNS [address] [place] [address] [facility] Start: 03-07-2023 End: 03-07-2023 Admission to same day surgery center 03/07/2023 9:58 AM EDT - 03/07/2023 12:26 PM EDT Surgery [facility] [address] [place] [address] Kota Landa, DO [address] [place] [address] RIGHT SHOULDER ARTHROSCOPY WITH ROTATOR CUFF REPAIR, SUBACROMIAL DECOMPRESSION, POSSIBLE ROTIUM , REGENETEN REPAIR, SURGERY INDICATED [facility] Comment on above: RIGHT SHOULDER ARTHROSCOPY WITH ROTATOR CUFF REPAIR, SUBACROMIAL DECOMPRESSION, POSSIBLE ROTIUM , REGENETEN REPAIR, SURGERY INDICATED Start: 03-07-2023 End: 03-07-2023 Arthroscopy, shoulder ARTHROSCOPY SHOULDER Rotator cuff tear arthropathy of right shoulder Traumatic complete tear of right rotator cuff, subsequent encounter 03/07/2023 9:58 AM EDT [facility] Start: 03-07-2023 End: 03-07-2023 Admission to same day surgery center 03/07/2023 7:30 AM EDT - 03/07/2023 9:58 AM EDT Surgery [facility] [address] [place] [address] Kota Landa, DO [address] [place] [address] RIGHT SHOULDER ARTHROSCOPY WITH ROTATOR CUFF REPAIR, SUBACROMIAL DECOMPRESSION, POSSIBLE ROTIUM , REGENETEN REPAIR, SURGERY INDICATED [facility] Comment on above: RIGHT SHOULDER ARTHROSCOPY WITH ROTATOR CUFF REPAIR, SUBACROMIAL DECOMPRESSION, POSSIBLE ROTIUM , REGENETEN REPAIR, SURGERY INDICATED Start: 03-07-2023 End: 03-07-2023 Anesthesia consultation 03/07/2023 7:30 AM EDT Anesthesia Event [facility] [address] [place] [address] Prashant Howe, DO [address] [place] [address] [facility] Start: 03-07-2023 End: 03-07-2023 Arthroscopy, shoulder ARTHROSCOPY SHOULDER Rotator cuff tear arthropathy of right shoulder Traumatic complete tear of right rotator cuff, subsequent encounter 03/07/2023 7:30 AM EDT [facility] Start: 03-07-2023 Subsequent hospital visit by physician [facility] Start: 02-28-2023 End: 02-28-2023 Patient encounter procedure 02/28/2023 8:45 AM EDT Office Visit [facility] [address] [place] [id number] Kota Landa, DO [address] [place] [address] Discharge Disposition: Home [facility] Start: 12-20-2022 End: 12-20-2022 Patient encounter procedure 12/20/2022 Office Visit Primary Care Ely Peres, [address] [facility] [address] [place] [address] [facility] Start: 12-19-2022 End: 12-19-2022 Patient encounter procedure 12/19/2022 Office Visit Primary Care Mateusz Linares, DO [address] [place] [phone] [facility] Start: 12-07-2022 End: 12-07-2022 Patient encounter procedure 12/07/2022 Office Visit Primary Care Ely Peres [address] [place] [address] [facility] Start: 11-20-2022 End: 11-20-2022 Patient encounter procedure 11/20/2022 Office Visit Primary Care Mateusz Linares DO [address] [place] [address] [facility] Start: 10-22-2022 Depression Assessment Depression Assessment [facility] Start: 10-22-2022 Screening for malignant neoplasm of colon Colonoscopy [facility] Start: 10-11-2022 End: 09-11-2023 Hepatic function 2000 panel - Serum or Plasma Hepatic Function Panel Lab Routine Onychomycosis Expected: 10/11/2022 (Approximate), Expires: 09/11/2023 [facility] Work Phone: Comment on above: Expected: 10/11/2022 (Approximate), Expi res: 09/11/2023 Start: 10-04-2022 Screening for malignant neoplasm of breast [facility] Start: 09-11-2022 End: 09-11-2022 Patient encounter procedure 09/11/2022 Office Visit Primary Care Mateusz Linares DO [address] [facility] [address] [place] [address] [facility] Start: 09-05-2022 COVID-19 Vaccine (4 - Booster for Moderna series) COVID-19 Vaccine (4 - Booster for Moderna series) [facility] Start: 06-30-2022 COVID-19 Vaccine (4 - Booster for Moderna series) COVID-19 Vaccine (4 - Booster for Moderna series) [facility] Start: 06-30-2022 COVID-19 Vaccine (4 - Moderna series) COVID-19 Vaccine (4 - Moderna series) [facility] Start: 06-22-2022 Influenza vaccination Sequential Influenza Vaccine (#1) [facility] Start: 05-15-2022 End: 05-15-2022 Patient encounter procedure 05/15/2022 Office Visit Primary Care Mateusz Linares DO [address] [facility] [address] [place] [phone] [facility] Start: 05-12-2022 End: 05-12-2022 Patient encounter procedure 05/12/2022 Appointment Radiology Vikas Bermudez, DO [address] [facility] [place] [address] [facility] Start: 05-05-2022 End: 05-05-2022 Patient encounter procedure 05/05/2022 Office Visit Primary Care Mateusz Linares DO [address] [facility] [address] [place] [phone] [facility] Start: 01-12-2022 End: 01-12-2022 Patient encounter procedure 01/12/2022 Office Visit Primary Care Hussain Kumar, DO [address] [facility] [address] [place] [address] [facility] Start: 01-05-2022 End: 01-05-2022 Patient encounter procedure 01/05/2022 Office Visit Primary Care Antonio Ragland, DO [address] [facility] [place] [address] [facility] Start: 10-17-2021 End: 10-17-2021 Patient encounter procedure 10/17/2021 Office Visit Primary Care Peter Mendoza Lp, DO [address] [address] [facility] Start: 10-04-2021 Subsequent hospital visit by physician 10/04/2021 Hospital Encounter Pulmonology Zina Bustos, DO [address] [address] [facility] Start: 10-04-2021 End: 10-04-2021 Patient encounter procedure [facility] Start: 09-14-2021 End: 09-14-2021 Patient encounter procedure 09/14/2021 Office Visit Primary Care Peter Mendoza Lp, DO [address] [address] [facility] Start: 09-05-2021 COVID-19 Vaccine (3 - Booster for Moderna series) COVID-19 Vaccine (3 - Booster for Moderna series) [facility] Start: 08-30-2021 End: 08-30-2021 Patient encounter procedure 08/30/2021 Office Visit Primary Care Peter Mendoza Lp, DO [address] [address] [facility] Start: 08-12-2021 End: 08-12-2021 Patient encounter procedure 08/12/2021 Office Visit Primary Care Peter Mendoza Lp, DO [address] [address] [facility] Start: 08-05-2021 COVID-19 Vaccine (3 - Booster for Moderna series) COVID-19 Vaccine (3 - Booster for Moderna series) [facility] Start: 08-03-2021 Screening colonoscopy COLONOSCOPY [facility] Start: 06-22-2021 Influenza vaccination Sequential Influenza Vaccine (#1) [facility] Start: 05-26-2021 Depression Remission Assessment (PHQ9) Depression Remission Assessment (PHQ9) [facility] Start: 05-17-2021 End: 05-17-2021 Patient encounter procedure 05/17/2021 Office Visit Primary Care Peter Mendoza Lp, DO [address] [address] [phone] [facility] Start: 05-02-2021 End: 05-02-2021 Patient encounter procedure 05/02/2021 Office Visit Primary Care Peter Mendoza Lp, DO [address] [address] [phone] [facility] Start: 04-29-2021 End: 04-29-2021 Patient encounter procedure 04/29/2021 Office Visit Lab Brennan Martin MD [address] [facility] [address] [place] [address] [facility] Start: 04-22-2021 Subsequent hospital visit by physician 04/22/2021 Hospital Encounter Radiology Madhuri Whatley, DO [address] [address] [facility] CT Scan Comment on above: Arrived Start: 04-22-2021 End: 04-22-2021 Patient encounter procedure 04/22/2021 Office Visit Primary Care Peter Mendoza Lp, DO [address] [place] [address] [facility] Start: 04-14-2021 End: 04-14-2021 Patient encounter procedure 04/14/2021 Office Visit Primary Care Peter Mendoza Lp, DO [address] [place] [address] [facility] Start: 03-30-2021 End: 03-30-2021 Patient encounter procedure 03/30/2021 Office Visit Primary Care Peter Mendoza Lp, DO [address] [place] [address] [facility] Start: 03-28-2021 End: 03-28-2021 Patient encounter procedure 03/28/2021 Office Visit Primary Care Peter Mendoza Lp, DO [address] [address] [facility] Start: 03-02-2021 COVID-19 Vaccine (2 - Moderna 2-dose series) COVID-19 Vaccine (2 - Moderna 2-dose series) [facility] Start: 01-03-2021 Administration of herpes zoster vaccine Zoster Vaccines (2 of 2) [facility] Start: 01-03-2021 Shingrix Vaccine (2 of 2) Shingrix Vaccine (2 of 2) [facility] Start: 06-22-2020 Influenza vaccination given Sequential Influenza Vaccine (#1) [facility] Start: 07-25-2019 Protein mass conc MAMMOGRAM [facility] Start: 07-25-2019 Screening for malignant neoplasm of breast Mammogram [facility] Start: 07-25-2019 Screening mammography Mammogram [facility] Start: 06-22-2019 Influenza vaccination given [facility] Start: 02-11-2019 End: 02-11-2019 Office Visit 02/11/2019 Office Visit Primary Care Trisha Ely Brendon, [address] [place] [address] [phone] [facility] Start: 08-19-2018 Ambulatory 08/19/2018 Hospital Encounter Cristi Long, DO [address] [place] [address] [phone] [facility] Start: 08-06-2018 Influenza vaccination SEQUENTIAL INFLUENZA VACCINE (#1) [facility] Comment on above: Postponed from 06/22/2018 (Patient Refus ed) Start: 07-26-2018 End: 07-26-2018 Ambulatory 07/26/2018 Office Visit Primary Care NilsGina nettles [address] [place] [address] [phone] [facility] Start: 06-27-2018 End: 06-27-2018 Ambulatory 06/27/2018 Office Visit Primary Care Gina Moseley [address] [place] [address] [phone] [facility] Start: 06-22-2018 Influenza vaccination [facility] Start: 06-22-2018 Influenza vaccination given SEQUENTIAL INFLUENZA VACCINE (#1) [facility] Start: 05-12-2018 Screening for malignant neoplasm of cervix PAP SMEAR [facility] Start: 03-05-2016 History and physical examination, annual for health maintenance Wellness Visit [facility] Start: 03-04-2016 Screening mammography MAMMOGRAM [facility] Start: 2013 Administration of herpes zoster vaccine Zoster Vaccines (1 of 2) [facility] Start: 2013 Screening for malignant neoplasm of colon [facility] Start: 2013 Shingrix Vaccine (1 of 2) Shingrix Vaccine (1 of 2) [facility] Start: 10-12-2012 Pneumococcal Vaccine: Ped or At-Risk (2 - PCV) Pneumococcal Vaccine: Ped or At-Risk (2 - PCV) [facility] Start: 2008 Cologuard (FIT-DNA) Cologuard (FIT-DNA) [facility] Start: 2008 Colonoscopy Colonoscopy [facility] Start: 2008 Colorectal Cancer Screening Colorectal Cancer Screening [facility] Start: [address] COLONOGRAPHY [facility] Start: 2008 Diabetes Screening Diabetes Screening [facility] Start: 2008 Fecal Occult Blood Fecal Occult Blood [facility] Start: 2008 Lipid 1996 panel - Serum or Plasma Lipid Screening [facility] Start: 2008 Screening for malignant neoplasm of colon [facility] Start: 2008 SIGMOIDOSCOPY SIGMOIDOSCOPY [facility] Start: 2003 Mammography Mammogram Screening [facility] Start: 2003 Screening for malignant neoplasm of breast Mammogram Screening [facility] Start: 1993 HPV Testing HPV Testing [facility] Start: 1984 Pap Testing Pap Testing [facility] Start: 1982 Hepatitis A Vaccine (1 of 2 - Risk 2-dose series) Hepatitis A Vaccine (1 of 2 - Risk 2-dose series) [facility] Start: 1982 Urine microalbumin profile DTaP,Tdap,Td Vaccine (1 - Tdap) [facility] Start: 1981 Hepatitis C Screening Hepatitis C Screening [facility] Start: 1981 Hepatitis C screening Hepatitis C Screening [facility] Start: 1981 HIV Screening HIV Screening [facility] Start: 1981 HIV screening HIV Screening [facility] Start: 1981 MMR Vaccine (1 of 2 - Risk 2-dose series) MMR Vaccine (1 of 2 - Risk 2-dose series) [facility] Start: 1979 COVID-19 Vaccine (1 of 2) COVID-19 Vaccine (1 of 2) [facility] Start: 1978 HIV screening HIV Screening [facility] Start: 1973 Meningococcal B Vaccine: Consider Based On Risk (1 of 4 - Increased Risk) Meningococcal B Vaccine: Consider Based On Risk (1 of 4 - Increased Risk) [facility] Start: 01-30-1964 Covid-19 Vaccine (#1) Covid-19 Vaccine (#1) [facility] Start: 1963 Depression screening using PHQ-9 (Patient Health Questionnaire 9) score Depression Screening (PHQ9) [facility] Start: 1963 Screening for malignant neoplasm of colon [facility] Arthroscopy, shoulder ARTHROSCOP Y SHOULDER Rotator cuff tear arthropathy of right shoulder Traumatic complete tear of right rotator cuff, subsequent encounter [facility] Bacteria identified Cx Nom (Bld) [facility] End: 04-22-2022 C reactive protein [Mass/volume] in Serum or Plasma CRP, Inflammation Lab Routine Chronic diarrhea of unknown origin 1 Occurrences starting 04/22/2021 until 04/22/2022 [facility] Comment on above: 1 Occurrences starting 04/22/2021 until 04/22/2022 Clostridioides diffi cile toxin genes [Presence] in Stool by ANGELIQUE with probe detection C. DIFFICILE PCR Lab Routine Diarrhea, unspecified type Ordered: 01/22/2024 [facility] Work Phone: Comment on above: Ordered: 01/22/2024 End: 04-22-2022 Complete blood count with white cell differential, manual CBC and Differential Lab Routine Chronic diarrhea of unknown origin 1 Occurrences starting 04/22/2021 until 04/22/2022 [facility] Comment on above: 1 Occurrences starting 04/22/2021 until 04/22/2022 Comprehensive metabo lic 2000 panel Comprehensive Metabolic Panel Lab Routine Hyperkalemia 04/10/2019 11:14 AM EDT [facility] End: 04-22-2022 Comprehensive metabolic 2000 panel - Serum or Plasma Comprehensive Metabolic Panel Lab Routine Chronic diarrhea of unknown origin 1 Occurrences starting 04/22/2021 until 04/22/2022 [facility] Comment on above: 1 Occurrences starting 04/22/2021 until 04/22/2022 End: 04-22-2022 Computed tomography of abdomen and pelvis with contrast CT Abdomen Pelvis With Contrast Imaging STAT Abdominal pain, unspecified abdominal location 1 Occurrences starting 04/22/2021 until 04/22/2022 [facility] Comment on above: 1 Occurrences starting 04/22/2021 until 04/22/2022 Computed tomography of abdomen and pelvis with contrast CT Abdomen Pelvis With Contrast Imaging STAT Abdominal pain, unspecified abdominal location 04/22/2021 3:14 PM EDT [facility] End: 10-30-2025 DBT Breast - bilateral screening JAMEL SCREENING W MARQUES Radiology Routine Encounter for screening mammogram for breast cancer 1 Occurrences starting 09/30/2024 until 10/30/2025 [facility] Work Phone: Comment on above: 1 Occurrences starting 09/30/2024 until 10/30/2025 End: 04-14-2022 Elastase measurement Pancreatic Elastase, Fecal Lab Routine Chronic diarrhea of unknown origin Acute diarrhea 1 Occurrences starting 04/14/2021 until 04/14/2022 [facility] Comment on above: 1 Occurrences starting 04/14/2021 until 04/14/2022 Elastase measurement Pancreatic Elastase, Fecal Lab Routine Chronic diarrhea of unknown origin Acute diarrhea 04/18/2021 3:07 PM EDT [facility] End: 04-22-2022 Electrolytes and Osmolality, Stool Electrolytes and Osmolality, Stool Lab Routine Chronic diarrhea of unknown origin 1 Occurrences starting 04/22/2021 until 04/22/2022 [facility] Comment on above: 1 Occurrences starting 04/22/2021 until 04/22/2022 End: 04-22-2022 Erythrocyte sedimentation rate Sedimentation Rate Lab Routine Chronic diarrhea of unknown origin 1 Occurrences starting 04/22/2021 until 04/22/2022 [facility] Comment on above: 1 Occurrences starting 04/22/2021 until 04/22/2022 End: 04-14-2022 Gastrointestinal pathogens DNA and RNA panel - Stool by ANGELIQUE with non-probe detection Stool/GI PCR Panel Microbiology Routine Chronic diarrhea of unknown origin Acute diarrhea 1 Occurrences starting 04/14/2021 until 04/14/2022 [facility] Comment on above: 1 Occurrences starting 04/14/2021 until 04/14/2022 End: 04-22-2022 Gastrointestinal pathogens DNA and RNA panel - Stool by ANGELIQUE with non-probe detection Stool/GI PCR Panel Microbiology Routine Chronic diarrhea of unknown origin 1 Occurrences starting 04/22/2021 until 04/22/2022 [facility] Comment on above: 1 Occurrences starting 04/22/2021 until 04/22/2022 End: 04-22-2022 Gliadin Antibody, IgA Gliadin Antibody, IgA Lab Routine Chronic diarrhea of unknown origin 1 Occurrences starting 04/22/2021 until 04/22/2022 [facility] Comment on above: 1 Occurrences starting 04/22/2021 until 04/22/2022 Gliadin Antibody, IgA Gliadin An tibody, IgA Lab Routine Chronic diarrhea of unknown origin 04/23/2021 11:24 AM [facility] Hemoglobin A1c/Hemoglobin.total mass fraction (Bld) Hemoglobin A1c Lab Routine Prediabetes 04/10/2019 11:14 AM [facility] End: 05-31-2019 Hepatitis C Antibody Hepatitis C Antibody Add-On Preventive measure 1 Occurrences starting 05/31/2018 until 05/31/2019 [facility] End: 04-22-2022 Human immunodeficiency virus antibody test HIV 1/2 Screen (4th Generation) Lab Routine Chronic diarrhea of unknown origin 1 Occurrences starting 04/22/2021 until 04/22/2022 [facility] Comment on above: 1 Occurrences starting 04/22/2021 until 04/22/2022 End: 04-22-2022 Lactate [Moles/volume] in Serum or Plasma Lactic Acid, Plasma Lab Routine Chronic diarrhea of unknown origin 1 Occurrences starting 04/22/2021 until 04/22/2022 [facility] Comment on above: 1 Occurrences starting 04/22/2021 until 04/22/2022 End: 04-22-2022 Lipase [Enzymatic activity/volume] in Serum or Plasma Lipase Lab Routine Abdominal pain, unspecified abdominal location 1 Occurrences starting 04/22/2021 until 04/22/2022 [facility] Comment on above: 1 Occurrences starting 04/22/2021 until 04/22/2022 End: 05-31-2019 Lipid panel Lipid Panel Routine Preventive measure 1 Occurrences starting 05/31/2018 until 05/31/2019 [facility] End: 10-25-2024 JAMEL SCREENING JAMEL SCREENING Radiology Routine Screening mammogram, encounter for 1 Occurrences starting 09/26/2023 until 10/25/2024 [facility] Work Phone: Comment on above: 1 Occurrences starting 09/26/2023 until 10/25/2024 End: 08-27-2019 MG Breast - bilateral screening Mammography Screening Bilateral Routine Lymph nodes enlarged 1 Occurrences starting 06/27/2018 until 08/27/2019 [facility] Comment on above: 1 Occurrences starting 06/27/2018 until 08/27/2019 End: 11-01-2022 MG Breast - bilateral Screening Mammography Screening [facility] Bilateral Imaging Routine 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 1 Occurrences starting 09/01/2021 until 11/01/2022 [facility] Work Phone: Comment on above: 1 Occurrences starting 09/01/2021 until 11/01/2022 End: 01-21-2024 MG Breast - bilateral Screening Mammography Screening [facility]ilateral Imaging Routine Encounter for screening mammogram for malignant neoplasm of breast 1 Occurrences starting 11/22/2022 until 01/21/2024 [facility] [facility] Work Phone: Comment on above: 1 Occurrences starting 11/22/2022 until 01/21/2024 End: 01-05-2023 MR Shoulder Left Without Contrast MR Shoulder Left Without Contrast Imaging Routine Weakness of shoulder Chronic left shoulder pain 1 Occurrences starting 01/05/2022 until 01/05/2023 [facility] Work Phone: Comment on above: 1 Occurrences starting 01/05/2022 until 01/05/2023 End: 04-17-2023 MR Shoulder Right Without Contrast MR Shoulder Right Without Contrast Imaging Routine Weakness of shoulder 1 Occurrences starting 04/17/2022 until 04/17/2023 [facility] Work Phone: Comment on above: 1 Occurrences starting 04/17/2022 until 04/17/2023 Patient Education [facility] Work Phone: Patient referral [facility] Work Phone: End: 09-01-2022 PFT spirometry with pre and post bronchodilator PFT spirometry with pre and post bronchodilator PFT Routine Dyspnea on exertion 1 Occurrences starting 09/01/2021 until 09/01/2022 [facility] Comment on above: 1 Occurrences starting 09/01/2021 until 09/01/2022 End: 04-22-2022 Quantitative measurement of calprotectin in stool specimen Calprotectin Lab Routine Chronic diarrhea of unknown origin 1 Occurrences starting 04/22/2021 until 04/22/2022 [facility] Comment on above: 1 Occurrences starting 04/22/2021 until 04/22/2022 Thinprep Pap Smear Thinprep Pap Smear Routine Screening for cervical cancer Ordered: 04/15/2018 [facility] End: 04-22-2022 Tissue transglutaminase IgA measurement Tissue Transglutaminase, IgA Lab Routine Chronic diarrhea of unknown origin 1 Occurrences starting 04/22/2021 until 04/22/2022 [facility] Comment on above: 1 Occurrences starting 04/22/2021 until 04/22/2022 End: 05-31-2019 TSH with Reflex Free T4 TSH with Reflex Free T4 Routine Preventive measure 1 Occurrences starting 05/31/2018 until 05/31/2019 [facility] End: 05-31-2019 Uric Acid Uric Acid Routine Gout, unspecified cause, unspecified chronicity, unspecified site 1 Occurrences starting 05/31/2018 until 05/31/2019 [facility] End: 09-05-2022 US Lower Extremity Non Vascular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 Prescriptions Pending Prescriptions Disp Refills famotidine (PEPCID) 20 mg tablet [Pharmacy Med Name: famotidine 20 mg tablet] 30 tablet 2 Sig: Take 1 tablet by mouth once daily. Please review and advise. Sonia Anderson MA [facility] 03-04-2025 Miscellaneous Notes pharmacy electronically requesting refills as follows: Last seen 04/22/24 . Last refill 08/14/24 . Requested Prescriptions Pending Prescriptions Disp Refills famotidine (PEPCID) 20 mg tablet [Pharmacy Med Name: famotidine 20 mg tablet] 30 tablet 2 Sig: Take 1 tablet by mouth once daily. Please review and advise. Sonia Anderson MA documented in this encounter [facility] 02-26-2025 Discharge summary Note Date/Time February 26, 2025 11:28am [facility] [address] [place] [address] [address] [place] [address] / REHABILITATION SERVICES DISCHARGE SUMMARY MR#: [id number] Acct: [id number] Name: ZOFIA SWEENEY Rep #: [id number] : 1965 59 From: Cert. TRACEY Wolfe, OCS Referring Dr.: Dr. Marcial Ospina MD Status : [facility] Insurance: [facility] [employer]UR[employer] Patient Information Patient Information: ZOFIA SWEENEY was seen in my office for initial evaluation on 11/28/24. The following Plan of Care was established for this patient: POC Established Initial Frequency: 2x /Week Initial Duration: 4 Weeks Anticipated Interventions Patient/Client Instruction: Educate patient on: Condition and Plan of Care For the Purpose of:: To decrease pain, To increase ROM, To improve muscle performance and motor function, To improve ability to perform ADL's, To increasetolerance to activity/condition/position, To improve ability of physical actionsfor home/community/work/leisure, To improve health of tissue, To decrease soft tissue restriction, To increase flexibility/ROM, To assume or resume ADL's and To prevent re-injury Therapeutic Exercise to Include: Strength training, Body mechanics, Postural training, Flexibilty training, In an aquatic setting, Active ROM and Dynamic Lumbar Stabilization For the Purpose of:: To decrease pain, To increase ROM, To improve muscle performance and motor function, To improve ability to perform ADL's, To improve ability of physical actions for home/community/work/leisure, To improve gait andlocomotor functions, To improve health of tissue, To decrease soft tissue restriction, To increase flexibility/ROM, To reduce risk of recurrence and To improve tolerance to ADL's Last Seen Last Seen: This patient was last seen in our office . Pertinent comments regarding their Physical therapy will appear below: Patient was seen for lumbar radiculopathy in Aquatics therapy for DLS and le flexibility. At this point I will be discontinuing this patient from physical therapy. I would be happy to see this patient again in the future if found appropriate by the physician. Thank you! Ifeanyi Avalos PT, Manuel WEBB, OCS Balance/Gait/Functional tests Balance/Special Test Scores Oswestry Low Back Score: 31 <Electronically signed by Cert. TRACEY Lynn PT, OCS> 02/26/25 1128 CC: Dr. Marcial Ospina MD; [facility] ICU SPECIALIST-C Beam ~ CHAIM Signed [facility] Work Phone: [phone] 107-886305-08-2025 Discharge summary [facility] [address] [place] [address] [address] [place] [address] / REHABILITATION SERVICES DISCHARGE SUMMARY MR#: [id number] Acct: [id number] Name: ZOFIA SWEENEY Rep #: [id number] : 1965 59 From: Cert. TRACEY Wolfe, OCS Referring Dr.: Dr. Marcial Ospina MD Status : REG R Insurance: [facility] [employer]URANCE Patient Information Patient Information: ZOFIA SWEENEY was seen in my office for initial evaluation on 11/28/24. The following Plan of Care was established for this patient: POC Established Initial Frequency: 2x /Week Initial Duration: 4 Weeks Anticipated Interventions Patient/Client Instruction: Educate patient on: Condition and Plan of Care For the Purpose of:: To decrease pain, To increase ROM, To improve muscle performance and motor function, To improve ability to perform ADL's, To increasetolerance to activity/condition/position, To improve ability of physical actionsfor home/community/work/leisure, To improve health of tissue, To decrease soft tissue restriction, To increase flexibility/ROM, To assume or resume ADL's and To prevent re-injury Therapeutic Exercise to Include: Strength training, Body mechanics, Postural training, Flexibilty training, In an aquatic setting, Active ROM and Dynamic Lumbar Stabilization For the Purpose of:: To decrease pain, To increase ROM, To improve muscle performance and motor function, To improve ability to perform ADL's, To improve ability of physical actions for home/community/work/leisure, To improve gait andlocomotor functions, To improve health of tissue, To decrease soft tissue restriction, To increase flexibility/ROM, To reduce risk of recurrence and To improve tolerance to ADL's Last Seen Last Seen: This patient was last seen in our office . Pertinent comments regarding their Physical therapy willappear below: Patient was seen for lumbar radiculopathy in Aquatics therapy for DLS and le flexibility. At this point I will be discontinuing this patient from physical therapy. I would be happy to see this patient again in the future if found appropriate by the physician. Thank you! Ifeanyi Avalos, PT, Cert MDT, OCS Balance/Gait/Functional tests Balance/Special Test Scores Oswestry Low Back Score: 31 02/26/25 1128 CC: Dr. Marcial Ospina MD; Katie [facility] ICU SPECIALIST-C Beam ~ CHAIM Signed [facility]04-02-2025 Telephone encounter Note* Telephone Encounter - Thaddeus Lynn - 01/21/2025 11:03 AM EDT No Show Documentation Zofia Sweeney no showed for an appointment on 01/21/2025 with Jennifer Hernandez DO at 10:00 am. She was scheduled for well adult exam. I called and spoke with the patient's regarding her missed appointment. He stated the reason that she missed her appointment was because she forgot she had the appointment. Resources discussed/offered to patient: na No show determined to be fault of patient: Yes This is the patients third no show in the last 12 months. Patient was rescheduled for na. Letter sent thru MyChart: Yes Is this the Third or Fourth No Show? No Thaddeus Lynn January 21, 2025 11:04 AM [facility]04-02-2025 Miscellaneous Notes* Telephone Encounter - Thaddeus Lynn - 01/21/2025 11:03 AM EDT No Show Documentation Zofia Sweeney no showed for an appointment on 01/21/2025 with Jennifer Hernandez DO at 10:00 am. She was scheduled for well adult exam. I called and spoke with the patient's regarding her missed appointment. He stated the reason that she missed her appointment was because she forgot she had the appointment. Resources discussed/offered to patient: na No show determined to be fault of patient: Yes This is the patients third no show in the last 12 months. Patient was rescheduled for na. Letter sent thru MyChart: Yes Is this the Third or Fourth No Show? No Thaddeus Lynn January 21, 2025 11:04 AM [facility] Radiology Diagnostic study note [facility] Imaging Services [address] [place] [address] [id number] Cerv Spine 4 or 5 Views MR#: [id number] Acct: [id number] Name: ZOFIA SWEENEY CHAPARRITA Rep #: [id number] : 1965 F 59 From: Marcelle Phillip MD PCP: Katie Nicholas [facility] ICU SPECIALIST-C Status: REG CLI Study:Cerv Spine 4 or 5 Views Date of Exam: 12/22/24 Exam# [id number] Ordering Dr: Marcial Ospina MD EXAM: XR Cervical Spine, 4 or 5 Views CLINICAL INDICATION: TECHNIQUE: Frontal, lateral and bilateral oblique views of the cervical spine. COMPARISON: No relevant prior studies available. FINDINGS: VERTEBRAE: Mild reversal cervical spine lordosis. Severe endplate degenerativechanges and disc disease of C6-7. No acute fracture. DISC SPACES: No acute findings. No significant narrowing. SOFT TISSUES: Unremarkable. RAD/Cerv Spine 4 or 5 Views IMPRESSION: Severe endplate degenerative changes and disc disease of C6-7. Reading [facility] CC: Dr. Marcial Ospina MD; [facility] ICU SPECIALIST-C Beam ~ Sewer Builder: Signed [facility]02-25-2025 Telephone encounter Note* Telephone Encounter - Sonia Anderson MA - 12/16/2024 4:07 PM EST patient phones requesting refills as follows: Last seen 04/22/24 . Last refill gabapentin 11/12/24, meloxicam 08/14/24 . Next office visit 01/21/25 Requested Prescriptions Pending Prescriptions Disp Refills gabapentin (NEURONTIN) 600 mg tablet 90 tablet 0 Sig: Take 1 tablet by mouth three times a day for 30 days. meloxicam (MOBIC) 15 mg tablet 90 tablet 3 Sig: Take 1 tablet by mouth once daily. Please review and advise. Sonia Anderson MA [facility]02-25-2025 Miscellaneous Notes* Telephone Encounter - Sonia Anderson MA - 12/16/2024 4:07 PM EST patient phones requesting refills as follows: Last seen 04/22/24 . Last refill gabapentin 11/12/24, meloxicam 08/14/24 . Next office visit 01/21/25 Requested Prescriptions Pending Prescriptions Disp Refills gabapentin (NEURONTIN) 600 mg tablet 90 tablet 0 Sig: Take 1 tablet by mouth three times a day for 30 days. meloxicam (MOBIC) 15 mg tablet 90 tablet 3 Sig: Take 1 tablet by mouth once daily. Please review and advise. Sonia Anderson MA [facility]25 NoteHNO ID: [id number] Author: KEELEY HAYES LPN Service: ? Author Type: LICENSED NURSE Type: Progress Notes Filed: 11/20/2024 11:46 Note Text: ED Follow-Up Note Provider Action / FYI: Call completed by: RK Patient seen in ED: Out of Network ED Contact made with Patient: No, unable to leave message. Keeley Hayes LPN [facility] 2024 [facility] of Present illness Narrative* Keeley Hayes LPN - 11/20/2024 11:44 AM EST ED Follow-Up Note Provider Action / FYI: Call completed by: RK Patient seen in ED: Out of Network ED Contact made with Patient: No, unable to leave message. Keeley Hayes LPN November 20, 2024 11:46 AM [facility] NotePatient Outreach (AGFAMPLE) ZOFIA SWEENEY ([id number]) 1965 F Date Time Provider Department 11/20/24 JENNIFER HERNANEDZ During your visit today, we recorded the following information about you: Keeley Hayes LPN 11/20/2024 11:46 AM Signed ED Follow-Up Note Provider Action / FYI: Call completed by: RK Patient seen in ED: Out of Network ED Contact made with Patient: No, unable to leave message. Keeley Hayes LPN November 20, 2024 11:46 AM Allergies As of Date: 11/20/2024 Noted Allergy Reaction VANCOMYCIN 08/14/2023 14 - Other: See Comments Comments: Back gets hot if taken IV Date Reviewed: 04/22/2024 Reviewed by: Jennifer Hernandez DO - Fully Assessed Reason for Visit: ED Follow-up [821] Cmt: [facility] 11/13/2024 Prescriptions as of 11/20/2024 - gabapentin (NEURONTIN) 600 mg tablet Take 1 tablet by mouth three times a day for 30 days. - albuterol HFA (PROVENTIL HFA, VENTOLIN HFA) 90 mcg/actuation inhaler Inhale 2 Puffs as instructed every 6 hours as needed for wheezing/shortness of breath. - busPIRone (BUSPAR) 5 mg tablet Take 1 tablet by mouth once daily. - cyclobenzaprine (FLEXERIL) 10 mg tablet Take 1 tablet by mouth three times a day as needed. - famotidine (PEPCID) 20 mg tablet Take 1 tablet by mouth once daily. - hydrOXYzine HCl (ATARAX) 25 mg tablet Take 1 tablet by mouth three times a day as needed. - lidocaine (SALONPAS) 4 % patch Apply 1 application as directed once daily. - meloxicam (MOBIC) 15 mg tablet Take 1 tablet by mouth once daily. - oxybutynin ER (DITROPAN XL) 15 mg 24 hr Extended Rel Tab Take 2 tablets by mouth once daily. - PARoxetine (PAXIL) 40 mg tablet Take 2 tablets by mouth once daily. - valACYclovir (VALTREX) 1 gram tablet Take 1 tablet by mouth once daily. - Blood Pressure Monitor 1 Each as directed. - bupropion HCl (WELLBUTRIN ORAL) Take by mouth two times a day. - diphenhydramine HCl (BENADRYL ALLERGY ORAL) Take 1 tablet by mouth three times a day as needed. - ammonium lactate (LAC-HYDRIN) 12 % lotion Apply to affected area once daily as needed. - FOLIC ACID 1 MG TAB Take one(1) tablet daily. - DAILY MULTIPLE TAB Take one(1) tablet daily. Problem List As Of Date 11/20/2024 Noted Resolved History of migraine [Z86.69] 07/22/2005 Recurrent major depressive disorder, in remissi* ARAM (generalized anxiety disorder) [F41.1] OSTEOARTHROS NOS-OTHER SITE [M19.90] Ulcerative colitis (HCC) [K51.90] OAB (overactive bladder) [N32.81] 09/26/2023 Left sided sciatica [M54.32] 10/09/2023 Dermatitis [L30.9] 10/09/2023 Class 1 obesity in adult [E66.811] 04/22/2024 Encounter Status:Closed by KEELEY HAYES on 11/20/24[facility] 11-18-2024 NoteHNO ID: [id number] Author: SONIA ANDERSON MA Service: ? Author Type: Patient Representative Type: Progress Notes Filed: 11/18/2024 15:49 Note Text: ED Follow Up: Patient discharged from [facility] ED on 11/13/24. 1. How are you feeling since your ED visit? Tried to call patient and call could not be completed. Have your symptoms improved or resolved? Not applicable 2. Were you prescribed any medications while in the ED or advised to stop any medication? Not applicable - If yes, were you able to fill your prescriptions? Not applicable -if stopped medication, what was the medication? N/A 3. Were you advised to schedule a follow up appointment with your provider? Not applicable - If no, Do you feel like you need an appointment scheduled? Not applicable - If yes, Do you need this scheduled now or has this already been scheduled? Not applicable 4. Were you able to contact the office or educational technician provider prior to your ED visit? Not applicable 5. Is there anything else I can do for you today? Not applicable [facility] History of Present illness Narrative* Sonia Anderson MA - 11/18/2024 3:48 PM EST ED Follow Up: Patient discharged from [facility] ED on 11/13/24. 1. How are you feeling since your ED visit? Tried to call patient and call could not be completed. Have your symptoms improved or resolved? Not applicable 2. Were you prescribed any medications while in the ED or advised to stop any medication? Not applicable - If yes, were you able to fill your prescriptions? Not applicable -if stopped medication, what was the medication? N/A 3. Were you advised to schedule a follow up appointment with your provider? Not applicable - If no, Do you feel like you need an appointment scheduled? Not applicable - If yes, Do you need this scheduled now or has this already been scheduled? Not applicable 4. Were you able to contact the office or educational technician provider prior to your ED visit? Not applicable 5. Is there anything else I can do for you today? Not applicable Sonia Anderson MA [facility] NotePatient Outreach (AGFAMPLE) ZOFIA SWEENEY ([id number]) 1965 F Date Time Provider Department 11/18/24 JENNIFER HERNANDEZ During your visit today, we recorded the following information about you: Sonia Anderson MA 11/18/2024 3:49 PM Signed ED Follow Up: Patient discharged from [facility] ED on 11/13/24. 1. How are you feeling since your ED visit? Tried to call patient and call could not be completed. Have your symptoms improved or resolved? Not applicable 2. Were you prescribed any medications while in the ED or advised to stop any medication? Not applicable - If yes, were you able to fill your prescriptions? Not applicable -if stopped medication, what was the medication? N/A 3. Were you advised to schedule a follow up appointment with your provider? Not applicable - If no, Do you feel like you need an appointment scheduled? Not applicable - If yes, Do you need this scheduled now or has this already been scheduled? Not applicable 4. Were you able to contact the office or educational technician provider prior to your ED visit? Not applicable 5. Is there anything else I can do for you today? Not applicable Sonia Anderson MA Allergies As of Date: 11/18/2024 Noted Allergy Reaction VANCOMYCIN 08/14/2023 14 - Other: See Comments Comments: Back gets hot if taken IV Date Reviewed: 04/22/2024 Reviewed by: Jennifer Hernandez DO - Fully Assessed Reason for Visit: ED Follow-up [821] Cmt: [facility] ER 11/13/24 Prescriptions as of 11/18/2024 - gabapentin (NEURONTIN) 600 mg tablet Take 1 tablet by mouth three times a day for 30 days. - albuterol HFA (PROVENTIL HFA, VENTOLIN HFA) 90 mcg/actuation inhaler Inhale 2 Puffs as instructed every 6 hours as needed for wheezing/shortness of breath. - busPIRone (BUSPAR) 5 mg tablet Take 1 tablet by mouth once daily. - cyclobenzaprine (FLEXERIL) 10 mg tablet Take 1 tablet by mouth three times a day as needed. - famotidine (PEPCID) 20 mg tablet Take 1 tablet by mouth once daily. - hydrOXYzine HCl (ATARAX) 25 mg tablet Take 1 tablet by mouth three times a day as needed. - lidocaine (SALONPAS) 4 % patch Apply 1 application as directed once daily. - meloxicam (MOBIC) 15 mg tablet Take 1 tablet by mouth once daily. - oxybutynin ER (DITROPAN XL) 15 mg 24 hr Extended Rel Tab Take 2 tablets by mouth once daily. - PARoxetine (PAXIL) 40 mg tablet Take 2 tablets by mouth once daily. - valACYclovir (VALTREX) 1 gram tablet Take 1 tablet by mouth once daily. - Blood Pressure Monitor 1 Each as directed. - bupropion HCl (WELLBUTRIN ORAL) Take by mouth two times a day. - diphenhydramine HCl (BENADRYL ALLERGY ORAL) Take 1 tablet by mouth three times a day as needed. - ammonium lactate (LAC-HYDRIN) 12 % lotion Apply to affected area once daily as needed. - FOLIC ACID 1 MG TAB Take one(1) tablet daily. - DAILY MULTIPLE TAB Take one(1) tablet daily. Problem List As Of Date 11/18/2024 Noted Resolved History of migraine [Z86.69] 07/22/2005 Recurrent major depressive disorder, in remissi* ARAM (generalized anxiety disorder) [F41.1] OSTEOARTHROS NOS-OTHER SITE [M19.90] Ulcerative colitis (HCC) [K51.90] OAB (overactive bladder) [N32.81] 09/26/2023 Left sided sciatica [M54.32] 10/09/2023 Dermatitis [L30.9] 10/09/2023 Class 1 obesity in adult [E66.811] 04/22/2024 Encounter Status:Closed by SONIA ANDERSON on 11/18/24[facility] 11-12-2024 Telephone encounter Note* Telephone Encounter - Sonia Anderson MA - 11/12/2024 7:27 AM EST pharmacy electronically requesting refills as follows: Last seen 04/22/24 . Last refill 10/13/24 . Requested Prescriptions Pending Prescriptions Disp Refills gabapentin (NEURONTIN) 600 mg tablet [Pharmacy Med Name: gabapentin 600 mg tablet] 90 tablet 0 Sig: Take 1 tablet by mouth three times a day for 30 days. Please review and advise. Sonia Anderson MA [facility]01-22-2025 Miscellaneous Notes* Telephone Encounter - Sonia Anderson MA - 11/12/2024 7:27 AM EST pharmacy electronically requesting refills as follows: Last seen 04/22/24 . Last refill 10/13/24 . Requested Prescriptions Pending Prescriptions Disp Refills gabapentin (NEURONTIN) 600 mg tablet [Pharmacy Med Name: gabapentin 600 mg tablet] 90 tablet 0 Sig: Take 1 tablet by mouth three times a day for 30 days. Please review and advise. Sonia Anderson MA [facility] Telephone encounter Note * Telephone Encounter - Sonia Anderson MA - 10/13/2024 9:33 AM EST pharmacy electronically requesting refills as follows: Last seen 04/22/24 . Last refill 09/12/24 . Requested Prescriptions Pending Prescriptions Disp Refills gabapentin (NEURONTIN) 600 mg tablet [Pharmacy Med Name: gabapentin 600 mg tablet] 90 tablet 0 Sig: Take 1 tablet by mouth three times a day for 30 days. Please review and advise. Sonia Anderson MA [facility]12-23-2024 Miscellaneous Notes* Telephone Encounter - Sonia Anderson MA - 10/13/2024 9:33 AM EST pharmacy electronically requesting refills as follows: Last seen 04/22/24 . Last refill 09/12/24 . Requested Prescriptions Pending Prescriptions Disp Refills gabapentin (NEURONTIN) 600 mg tablet [Pharmacy Med Name: gabapentin 600 mg tablet] 90 tablet 0 Sig: Take 1 tablet by mouth three times a day for 30 days. Please review and advise. Sonia Anderson MA documented in this encounterMer[facility]12-10-2024 NotePatient Outreach (AGACM) ZOFIA SWEENEY ([id number]) 1965 F Date Time Provider Department 09/30/24 JENNIFER HERNANDEZ [facility] During your visit today, we recorded the following information about you: Allergies As of Date: 09/30/2024 Noted Allergy Reaction VANCOMYCIN 08/14/2023 14 - Other: See Comments Comments: Back gets hot if taken IV Date Reviewed: 04/22/2024 Reviewed by: Jennifer Hernandez, DO - Fully Assessed Visit Diagnosis:Encounter for screening mammogram for breast cancer [Z12.31] Order(s):JAMEL SCREENING W MARQUES [[id number]] Order #: [id number] FUTURE Prescriptions as of 10/03/2024 - gabapentin (NEURONTIN) 600 mg tablet Take 1 tablet by mouth three times a day for 30 days. - albuterol HFA (PROVENTIL HFA, VENTOLIN HFA) 90 mcg/actuation inhaler Inhale 2 Puffs as instructed every 6 hours as needed for wheezing/shortness of breath. - busPIRone (BUSPAR) 5 mg tablet Take 1 tablet by mouth once daily. - cyclobenzaprine (FLEXERIL) 10 mg tablet Take 1 tablet by mouth three times a day as needed. - famotidine (PEPCID) 20 mg tablet Take 1 tablet by mouth once daily. - hydrOXYzine HCl (ATARAX) 25 mg tablet Take 1 tablet by mouth three times a day as needed. - lidocaine (SALONPAS) 4 % patch Apply 1 application as directed once daily. - meloxicam (MOBIC) 15 mg tablet Take 1 tablet by mouth once daily. - oxybutynin ER (DITROPAN XL) 15 mg 24 hr Extended Rel Tab Take 2 tablets by mouth once daily. - PARoxetine (PAXIL) 40 mg tablet Take 2 tablets by mouth once daily. - valACYclovir (VALTREX) 1 gram tablet Take 1 tablet by mouth once daily. - Blood Pressure Monitor 1 Each as directed. - bupropion HCl (WELLBUTRIN ORAL) Take by mouth two times a day. - diphenhydramine HCl (BENADRYL ALLERGY ORAL) Take 1 tablet by mouth three times a day as needed. - ammonium lactate (LAC-HYDRIN) 12 % lotion Apply to affected area once daily as needed. - FOLIC ACID 1 MG TAB Take one(1) tablet daily. - DAILY MULTIPLE TAB Take one(1) tablet daily. Problem List As Of Date 09/30/2024 Noted Resolved History of migraine [Z86.69] 07/22/2005 Recurrent major depressive disorder, in remissi* ARAM (generalized anxiety disorder) [F41.1] OSTEOARTHROS NOS-OTHER SITE [M19.90] Ulcerative colitis (HCC) [K51.90] OAB (overactive bladder) [N32.81] 09/26/2023 Left sided sciatica [M54.32] 10/09/2023 Dermatitis [L30.9] 10/09/2023 Class 1 obesity in adult [E66.811] 04/22/2024 Encounter Status:Closed by Coupz, PRODUSER on 10/03/24[facility]11-22-2024 Telephone encounter Note* Telephone Encounter - Rodrigo Vera MA - 09/12/2024 5:12 PM EST Patient notified. Rodrigo Vera MA [facility]11-22-2024 Miscellaneous Notes* Telephone Encounter - Rodrigo Vera MA - 09/12/2024 5:12 PM EST Patient notified. Rodrigo Vera MA * Addendum Note - Jennifer Hernandez DO - 09/12/2024 5:05 PM ESTAddended by: JENNIFER HERNANDEZ on: 09/12/2024 05:05 PM Modules accepted: Orders * Telephone Encounter - Jennifer Hernandez DO - 09/12/2024 5:05 PM EST Rx sent Jennifer Hernandez DO * Telephone Encounter - Nancy Oneil - 09/12/2024 5:01 PM EST Pt would like medication refilled, went to pharmacy again and it was not there. She is out and needs it for this weekend. Thank you documented in this encounterMer[facility]11-22-2024 Note* Addendum Note - Jennifer Hernandez DO - 09/12/2024 5:05 PM ESTAddended by: JENNIFER HERNANDEZ on: 09/12/2024 05:05 PM Modules accepted: Orders [facility]11-22-2024 Telephone encounter Note* Telephone Encounter - Jennifer Hernandez DO - 09/12/2024 5:05 PM EST Rx sent Jennifer Hernandez DO [facility]11-22-2024 Telephone encounter Note* Telephone Encounter - Nancy Oneil - 09/12/2024 5:01 PM EST Pt would like medication refilled, went to pharmacy again and it was not there. She is out and needs it for this weekend. Thank you [facility]11-22-2024 Telephone encounter Note* Telephone Encounter - Rodrigo Vera MA - 09/12/2024 1:10 PM EST Patient requesting refills: Last office visit 04/22/2024. Last refill 08/14/2024 nov . Requested Prescriptions Pending Prescriptions Disp Refills gabapentin (NEURONTIN) 600 mg tablet 90 tablet 0 Sig: Take 1 tablet by mouth three times a day for 30 days. Please review and advise. Rodrigo Vera MA [facility]11-22-2024 Miscellaneous Notes* Telephone Encounter - Rodrigo Vera MA - 09/12/2024 1:10 PM EST Patient requesting refills: Last office visit 04/22/2024. Last refill 08/14/2024 nov . Requested Prescriptions Pending Prescriptions Disp Refills gabapentin (NEURONTIN) 600 mg tablet 90 tablet 0 Sig: Take 1 tablet by mouth three times a day for 30 days. Please review and advise. Rodrigo Vera MA documented in this encounterMercy [facility]10-24-2024 Telephone encounter Note * Telephone Encounter - Sonia Anderson MA - 08/14/2024 2:45 PM EDT Patient left message stating she has left her home and is staying at the [facility] in [place]. States Derek is still at home and she will not be going back there. States she left without her medications so she needs all of her medications sent to [facility] in [place]. Please advise. Sonia Anderson MA [facility]10-24-2024 Miscellaneous Notes* Telephone Encounter - Sonia Anderson MA - 08/14/2024 2:45 PM EDT Patient left message stating she has left her home and is staying at the [facility] in [place]. States Derek is still at home and she will not be going back there. States she left without her medications so she needs all of her medications sent to [facility] in [place]. Please advise. Sonia Anderson MA documented in this encounterMer[facility]10-11-2024 Telephone encounter Note * Telephone Encounter - Sonia Anderson MA - 08/01/2024 3:03 PM EDT patient phones requesting refills as follows: Last seen 04/22/24 . Last refill 07/03/24 . Requested Prescriptions Pending Prescriptions Disp Refills gabapentin (NEURONTIN) 600 mg tablet 90 tablet 0 Sig: Take 1 tablet by mouth three times a day for 30 days. Please review and advise. Sonia Anderson MA [facility]10-11-2024 Miscellaneous Notes* Telephone Encounter - Sonia Anderson MA - 08/01/2024 3:03 PM EDT patient phones requesting refills as follows: Last seen 04/22/24 . Last refill 07/03/24 . Requested Prescriptions Pending Prescriptions Disp Refills gabapentin (NEURONTIN) 600 mg tablet 90 tablet 0 Sig: Take 1 tablet by mouth three times a day for 30 days. Please review and advise. Sonia Anderson MA documented in this encounterMercy Health [facility]09-12-2024 Telephone encounter Note * Telephone Encounter - Marylou Sutton MA - 07/03/2024 4:52 PM EDT Patient requesting refills as follows: Last Office Visit 04/22/24 NOV none. Last Refill 06/03/24. Requested Prescriptions Pending Prescriptions Disp Refills gabapentin (NEURONTIN) 600 mg tablet 90 tablet 0 Sig: Take 1 tablet by mouth three times a day for 30 days. Please review and advise. Marylou Sutton MA [facility]09-12-2024 Miscellaneous Notes* Telephone Encounter - Marylou Sutton MA - 07/03/2024 4:52 PM EDT Patient requesting refills as follows: Last Office Visit 04/22/24 NOV none. Last Refill 06/03/24. Requested Prescriptions Pending Prescriptions Disp Refills gabapentin (NEURONTIN) 600 mg tablet 90 tablet 0 Sig: Take 1 tablet by mouth three times a day for 30 days. Please review and advise. Marylou Sutton MA documented in this encounterMercy Health [facility]08-16-2024 Note* Addendum Note - Jennifer Hernandez DO - 06/06/2024 4:15 PM EDTAddended by: JENNIFER HERNANDEZ on: 06/06/2024 04:15 PM Modules accepted: Orders [facility]08-16-2024 Miscellaneous Notes* Addendum Note - Jennifer Hernandez DO - 06/06/2024 4:15 PM EDTAddended by: JENNIFER HERNANDEZ on: 06/06/2024 04:15 PM Modules accepted: Orders * Addendum Note - Jennifer Hernandez DO - 06/06/2024 4:14 PM EDTAddended by: JENNIFER HERNANDEZ on: 06/06/2024 04:14 PM Modules accepted: Orders * Telephone Encounter - Jennifer Hernandez DO - 06/06/2024 4:13 PM EDT Please call pt- I received a request to refill lamisil. She can only take it for 3 months. Is her toenail fungus not cleared up? Also, she needs blood work after taking lamisil - order attached Jennifer Hernandez DO * Telephone Encounter - Keeley Hayes LPN - 06/06/2024 3:56 PM EDT Pharmacy requesting refills as follows: Last Office Visit: 04/22/2024 Last Refill: 03/27/2024 Next Office Visit: No future apt Requested Prescriptions Pending Prescriptions Disp Refills terbinafine HCl (LAMISIL) 250 mg tablet [Pharmacy Med Name: terbinafine HCl 250 mg tablet] 90 tablet 0 Sig: take 1 tablet by mouth once daily Please review and advise. Keeley Hayes LPN documented in this encounterMercy Health [facility]08-16-2024 Note* Addendum Note - Jennifer Hernandez DO - 06/06/2024 4:14 PM EDTAddended by: JENNIFER HERNANDEZ on: 06/06/2024 04:14 PM Modules accepted: Orders [facility]08-16-2024 Telephone encounter Note* Telephone Encounter - Jennifer Hernandez DO - 06/06/2024 4:13 PM EDT Please call pt- I received a request to refill lamisil. She can only take it for 3 months. Is her toenail fungus not cleared up? Also, she needs blood work after taking lamisil - order attached Jennifer Hernandez DO [facility]08-16-2024 Telephone encounter Note* Telephone Encounter - Keeley Hayes LPN - 06/06/2024 3:56 PM EDT Pharmacy requesting refills as follows: Last Office Visit: 04/22/2024 Last Refill: 03/27/2024 Next Office Visit: No future apt Requested Prescriptions Pending Prescriptions Disp Refills terbinafine HCl (LAMISIL) 250 mg tablet [Pharmacy Med Name: terbinafine HCl 250 mg tablet] 90 tablet 0 Sig: take 1 tablet by mouth once daily Please review and advise. Keeley Hayes LPN [facility]08-13-2024 Telephone encounter Note* Telephone Encounter - Sonia Anderson MA - 06/03/2024 11:39 AM EDT Patient left message requesting script be sent in today. Please advise. Sonia Anderson MA [facility]08-13-2024 Miscellaneous Notes* Telephone Encounter - Sonia Anderson MA - 06/03/2024 11:39 AM EDT Patient left message requesting script be sent in today. Please advise. Sonia Anderson MA * Telephone Encounter - Sonia Anderson MA - 06/02/2024 8:37 AM EDT pharmacy electronically requesting refills as follows: Last seen 04/22/24 . Last refill 04/29/24 . Requested Prescriptions Pending Prescriptions Disp Refills gabapentin (NEURONTIN) 600 mg tablet [Pharmacy Med Name: gabapentin 600 mg tablet] 90 tablet 0 Sig: Take 1 tablet by mouth three times a day for 30 days. Please review and advise. Sonia Anderson MA documented in this encounterMercy Health [facility]08-12-2024 Telephone encounter Note * Telephone Encounter - Sonia Anderson MA - 06/02/2024 8:37 AM EDT pharmacy electronically requesting refills as follows: Last seen 04/22/24 . Last refill 04/29/24 . Requested Prescriptions Pending Prescriptions Disp Refills gabapentin (NEURONTIN) 600 mg tablet [Pharmacy Med Name: gabapentin 600 mg tablet] 90 tablet 0 Sig: Take 1 tablet by mouth three times a day for 30 days. Please review and advise. Sonia Anderson MA [facility]08-09-2024 Telephone encounter Note* Telephone Encounter - Nancy Oneil - 05/30/2024 3:43 PM EDT .No Show Documentation Zofia Sweeney no showed for an appointment on 05/30/24 with Jennifer Hernandez DO at 3:00 am. She was scheduled for follow up. I called and spoke with the patient regarding her missed appointment. Zofia stated the reason that she missed her appointment was because she was at another appt. . Resources discussed/offered to patient: she would call back to reschedule appt No show determined to be fault of patient: Yes This is the patients first no show in the last 12 months. Patient was rescheduled for NA. Letter mailed : No Is this the Third or Fourth No Show? No Nancy Oneil May 30, 2024 3:45 PM [facility]08-09-2024 Miscellaneous Notes* Telephone Encounter - Nancy Oneil - 05/30/2024 3:43 PM EDT .No Show Documentation Zofia Sweeney no showed for an appointment on 05/30/24 with Jennifer Hernandez DO at 3:00 am. She was scheduled for follow up. I called and spoke with the patient regarding her missed appointment. Zofia stated the reason that she missed her appointment was because she was at another appt. . Resources discussed/offered to patient: she would call back to reschedule appt No show determined to be fault of patient: Yes This is the patients first no show in the last 12 months. Patient was rescheduled for NA. Letter mailed : No Is this the Third or Fourth No Show? No Nancy Oneil May 30, 2024 3:45 PM documented in this encounterMercy [facility]07-16-2024 Telephone encounter Note * Telephone Encounter - Marylou Sutton MA - 05/06/2024 8:45 AM EDT Pharmacy requesting refills as follows: Last Office Visit 04/22/24 NOV 05/30/24. Last Refill 01/22/24. Requested Prescriptions Pending Prescriptions Disp Refills hydrOXYzine HCl (ATARAX) 25 mg tablet [Pharmacy Med Name: hydroxyzine HCl 25 mg tablet] 90 tablet 3 Sig: take 1 tablet by mouth three times daily as needed cyclobenzaprine (FLEXERIL) 10 mg tablet [Pharmacy Med Name: cyclobenzaprine 10 mg tablet] 90 tablet3 Sig: take 1 tablet by mouth three times daily as needed Please review and advise. Marylou Sutton MA [facility]07-16-2024 Miscellaneous Notes* Telephone Encounter - Marylou Sutton MA - 05/06/2024 8:45 AM EDT Pharmacy requesting refills as follows: Last Office Visit 04/22/24 NOV 05/30/24. Last Refill 01/22/24. Requested Prescriptions Pending Prescriptions Disp Refills hydrOXYzine HCl (ATARAX) 25 mg tablet [Pharmacy Med Name: hydroxyzine HCl 25 mg tablet] 90 tablet 3 Sig: take 1 tablet by mouth three times daily as needed cyclobenzaprine (FLEXERIL) 10 mg tablet [Pharmacy Med Name: cyclobenzaprine 10 mg tablet] 90 tablet3 Sig: take 1 tablet by mouth three times daily as needed Please review and advise. Marylou Sutton MA documented in this encounterMercy [facility]07-09-2024 Telephone encounter Note * Telephone Encounter - Sonia Anderson MA - 04/29/2024 9:10 AM EDT pharmacy electronically requesting refills as follows: Last seen 04/22/24 . Last refill 03/31/24 . Requested Prescriptions Pending Prescriptions Disp Refills gabapentin (NEURONTIN) 600 mg tablet [Pharmacy Med Name: gabapentin 600 mg tablet] 90 tablet 0 Sig: Take 1 tablet by mouth three times a day for 30 days. Please review and advise. Sonia Anderson MA [facility]07-09-2024 Miscellaneous Notes* Telephone Encounter - Sonia Anderson MA - 04/29/2024 9:10 AM EDT pharmacy electronically requesting refills as follows: Last seen 04/22/24 . Last refill 03/31/24 . Requested Prescriptions Pending Prescriptions Disp Refills gabapentin (NEURONTIN) 600 mg tablet [Pharmacy Med Name: gabapentin 600 mg tablet] 90 tablet 0 Sig: Take 1 tablet by mouth three times a day for 30 days. Please review and advise. Sonia Anderson MA documented in this encounterMer[facility]07-05-2024 Telephone encounter Note * Telephone Encounter - Keeley Hayes LPN - 04/25/2024 11:33 AM EDT Pharmacy requesting refills as follows: Last Office Visit: 04/22/2024 Last Refill: 03/31/2024 Next Office Visit: 05/30/2024 Requested Prescriptions Pending Prescriptions Disp Refills gabapentin (NEURONTIN) 600 mg tablet [Pharmacy Med Name: gabapentin 600 mg tablet] 90 tablet 0 Sig: Take 1 tablet by mouth three times a day for 30 days. Please review and advise. Keeley Hayes LPN [facility]07-05-2024 Miscellaneous Notes* Telephone Encounter - Keeley Hayes LPN - 04/25/2024 11:33 AM EDT Pharmacy requesting refills as follows: Last Office Visit: 04/22/2024 Last Refill: 03/31/2024 Next Office Visit: 05/30/2024 Requested Prescriptions Pending Prescriptions Disp Refills gabapentin (NEURONTIN) 600 mg tablet [Pharmacy Med Name: gabapentin 600 mg tablet] 90 tablet 0 Sig: Take 1 tablet by mouth three times a day for 30 days. Please review and advise. Keeley Hayes LPN documented in this encounterMercy Health [facility]07-02-2024 NoteHNO ID: [id number] Author: JENNIFER HERNANDEZ, DO Service: ? Author Type: Physician Type: Progress Notes Filed: 05/06/2024 09:40 Note Text: Subjective HPI Pt is here for f/u for toenail fungus She was started on lamisil 6 weeks ago by Iglesia Yang She has not had any adverse side effects from the medication Her toenails show clearing at the outgrowth She is taking valtrex for genital herpes breakouts She had chest pain the other day in congregational It lasted about 15 minutes She has indigestion She would like something to take something for that She takes rolaids daily She is getting leg and hand cramps nightly She smokes 1/2 PPD ALLERGIES Allergen Reactions Vancomycin Other: See Comments Back gets hot if taken IV Current Outpatient Medications Medication Sig Dispense Refill gabapentin (NEURONTIN) 600 mg tablet Take 1 tablet by mouth three times a day for 30 days. 90 tablet 0 busPIRone (BUSPAR) 5 mg tablet Take 1 tablet by mouth once daily. 90 tablet 3 valACYclovir (VALTREX) 1 gram tablet Take 1 tablet by mouth once daily. 30 tablet 11 Blood Pressure Monitor 1 Each as directed. 1 Kit 0 terbinafine HCl (LAMISIL) 250 mg tablet Take 1 tablet by mouth once daily. 90 tablet 0 hydrOXYzine HCl (ATARAX) 25 mg tablet Take 1 tablet by mouth three times a day as needed. 90 tablet 3 cyclobenzaprine (FLEXERIL) 10 mg tablet Take 1 tablet by mouth three times a day as needed. 90 tablet 3 PARoxetine (PAXIL) 40 mg tablet Take 2 tablets by mouth once daily. 180 tablet 3 meloxicam (MOBIC) 15 mg tablet Take 1 tablet by mouth once daily. 90 tablet 3 oxybutynin ER (DITROPAN XL) 15 mg 24 hr Extended Rel Tab Take 2 tablets by mouth once daily. 180 tablet 3 albuterol HFA (PROVENTIL HFA, VENTOLIN HFA) 90 mcg/actuation inhaler Inhale 2 Puffs as instructed every 6 hours as needed for wheezing/shortness of breath. 1 Each 11 lidocaine (SALONPAS) 4 % patch Apply 1 application as directed once daily. 90 Patch 3 bupropion HCl (WELLBUTRIN ORAL) Take by mouth two times a day. diphenhydramine HCl (BENADRYL ALLERGY ORAL) Take 1 tablet by mouth three times a day as needed. ammonium lactate (LAC-HYDRIN) 12 % lotion Apply to affected area once daily as needed. 225 g 11 FOLIC ACID 1 MG TAB Take one(1) tablet daily. 0 DAILY MULTIPLE TAB Take one(1) tablet daily. 0 predniSONE (DELTASONE) 10 mg tablet Prednisone taper; take once daily with food: 6 x 2d/5x2d/4x2d/3x2d/2x2d/1x2d/0.5x2d (Patient not taking: Reported on 04/22/2024) 43 tablet 0 methylPREDNISolone (MEDROL, MACK,) 4 mg Dose-Pack As Instructed per package (Patient not taking: Reported on 04/22/2024) 21 tablet 0 No current facility-administered medications for this visit. ACTIVE PROBLEM LIST History of Migraine Recurrent Major Depressive Disorder, in Remission (Hcc) Aram (Generalized Anxiety Disorder) Osteoarthrosis, Unspecified Whether Generalized Or Localized, Other Specified Sites Ulcerative Colitis (Hcc) Oab (Overactive Bladder) Left Sided Sciatica Dermatitis Social History Tobacco Use Smoking status: Every Day Packs/day: 0.50 Years: 10.00 Additional pack years: 0.00 Total pack years: 5.00 Types: Cigarettes Smokeless tobacco: Never Vaping Use Vaping Use: Never used Substance Use Topics Alcohol use: Not Currently Comment: occasionally Drug use: Not Currently Types: Crack Cocaine Comment: pt report she quite july 2023 Family History Problem Relation Age of Onset Cancer Mother ovarian, uterine, lung Diabetes Mother Hypertension Mother Dementia Mother Hypertension Father Heart Father Alzheimer's Disease Father Heart Attack Father Thyroid Sister Reviewed past medical history, family history and surgeries. All medications and supplements were reviewed with the patient. Review of Systems Constitutional: Negative for chills, diaphoresis, fever, malaise/fatigue and weight loss. HENT: Negative for ear pain and hearing loss. Eyes: Negative for blurred vision and double vision. Respiratory: Negative for cough and shortness of breath. Cardiovascular: Positive for chest pain. Negative for palpitations and leg swelling. Gastrointestinal: Positive for heartburn. Negative for constipation and diarrhea. Genitourinary: Negative for dysuria and frequency. Musculoskeletal: Positive for myalgias. Negative for back pain, falls and joint pain. Skin: Negative for itching and rash. Toenail fungus Neurological: Negative for dizziness, weakness and headaches. Endo/Heme/Allergies: Does not bruise/bleed easily. Psychiatric/Behavioral: Negative for depression and substance abuse. The patient does not have insomnia. Objective BP 136/86 Pulse 88 Temp 36.8 ?C (98.2 ?F) Resp 16 Ht 153 cm (5' 0.25) Wt 75.8 kg (167 lb) SpO2 97% BMI 32.34 kg/m? Physical Exam Constitutional: Appearance: Normal appearance. She is obese. HENT: Head: Normocephalic and atraumatic. Nose: N (more content not included)...[facility]07-02-2024 History of Present illness Narrative* Jennifer Hernandez DO - 04/22/2024 4:16 PM EDT Subjective HPI Pt is here for f/u for toenail fungus She was started on lamisil 6 weeks ago by Iglesia Yang She has not had any adverse side effects from the medication Her toenails show clearing at the outgrowth She is taking valtrex for genital herpes breakouts She had chest pain the other day in congregational It lasted about 15 minutes She has indigestion She would like something to take something for that She takes rolaids daily She is getting leg and hand cramps nightly She smokes 1/2 PPD ALLERGIES Allergen Reactions Vancomycin Other: See Comments Back gets hot if taken IV Current Outpatient Medications Medication Sig Dispense Refill gabapentin (NEURONTIN) 600 mg tablet Take 1 tablet by mouth three times a day for 30 days. 90 tablet 0 busPIRone (BUSPAR) 5 mg tablet Take 1 tablet by mouth once daily. 90 tablet 3 valACYclovir (VALTREX) 1 gram tablet Take 1 tablet by mouth once daily. 30 tablet 11 Blood Pressure Monitor 1 Each as directed. 1 Kit 0 terbinafine HCl (LAMISIL) 250 mg tablet Take 1 tablet by mouth once daily. 90 tablet 0 hydrOXYzine HCl (ATARAX) 25 mg tablet Take 1 tablet by mouth three times a day as needed. 90 tablet3 cyclobenzaprine (FLEXERIL) 10 mg tablet Take 1 tablet by mouth three times a day as needed. 90 tablet 3 PARoxetine (PAXIL) 40 mg tablet Take 2 tablets by mouth once daily. 180 tablet 3 meloxicam (MOBIC) 15 mg tablet Take 1 tablet by mouth once daily. 90 tablet 3 oxybutynin ER (DITROPAN XL) 15 mg 24 hr Extended Rel Tab Take 2 tablets by mouth once daily. 180 tablet 3 albuterol HFA (PROVENTIL HFA, VENTOLIN HFA) 90 mcg/actuation inhaler Inhale 2 Puffs as instructed every 6 hours as needed for wheezing/shortness of breath. 1 Each 11 lidocaine (SALONPAS) 4 % patch Apply 1 application as directed once daily. 90 Patch 3 bupropion HCl (WELLBUTRIN ORAL) Take by mouth two times a day. diphenhydramine HCl (BENADRYL ALLERGY ORAL) Take 1 tablet by mouth three times a day as needed. ammonium lactate (LAC-HYDRIN) 12 % lotion Apply to affected area once daily as needed. 225 g 11 FOLIC ACID 1 MG TAB Take one(1) tablet daily. 0 DAILY MULTIPLE TAB Take one(1) tablet daily. 0 predniSONE (DELTASONE) 10 mg tablet Prednisone taper; take once daily with food: 6 x 2d/5x2d/4x2d/3x2d/2x2d/1x2d/0.5x2d (Patient not taking: Reported on 04/22/2024) 43 tablet 0 methylPREDNISolone (MEDROL, MACK,) 4 mg Dose-Pack As Instructed per package (Patient not taking: Reported on 04/22/2024) 21 tablet 0 No current facility-administered medications for this visit. ACTIVE PROBLEM LIST History of Migraine Recurrent Major Depressive Disorder, in Remission (Hcc) Aram (Generalized Anxiety Disorder) Osteoarthrosis, Unspecified Whether Generalized Or Localized, Other Specified Sites Ulcerative Colitis (Hcc) Oab (Overactive Bladder) Left Sided Sciatica Dermatitis Social History Tobacco Use Smoking status: Every Day Packs/day: 0.50 Years: 10.00 Additional pack years: 0.00 Total pack years: 5.00 Types: Cigarettes Smokeless tobacco: Never Vaping Use Vaping Use: Never used Substance Use Topics Alcohol use: Not Currently Comment: occasionally Drug use: Not Currently Types: Crack Cocaine Comment: pt report she quite july 2023 Family History Problem Relation Age of Onset Cancer Mother ovarian, uterine, lung Diabetes Mother Hypertension Mother Dementia Mother Hypertension Father Heart Father Alzheimer's Disease Father Heart Attack Father Thyroid Sister Reviewed past medical history, family history and surgeries. All medications and supplements were reviewed with the patient. Review of Systems Constitutional: Negative for chills, diaphoresis, fever, malaise/fatigue and weight loss. HENT: Negative for ear pain and hearing loss. Eyes: Negative for blurred vision and double vision. Respiratory: Negative for cough and shortness of breath. Cardiovascular: Positive for chest pain. Negative for palpitations and leg swelling. Gastrointestinal: Positive for heartburn. Negative for constipation and diarrhea. Genitourinary: Negative for dysuria and frequency. Musculoskeletal: Positive for myalgias. Negative for back pain, falls and joint pain. Skin: Negative for itching and rash. Toenail fungus Neurological: Negative for dizziness, weakness and headaches. Endo/Heme/Allergies: Does not bruise/bleed easily. Psychiatric/Behavioral: Negative for depression and substance abuse. The patient does not have insomnia. Objective BP 136/86 Pulse 88 Temp 36.8 C (98.2 F) Resp 16 Ht 153 cm (5' 0.25) Wt 75.8 kg (167 lb) SpO2 97% BMI 32.34 kg/m Physical Exam Constitutional: Appearance: Normal appearance. She is obese. HENT: Head: Normocephalic and atraumatic. Nose: Nose normal. Mouth/Throat: Mouth: Mucous membranes are moist. Dentition: Normal dentition. Eyes: General: Lids are normal. Extraocular Movements: Extraocular movements intact. Conjunctiva/sclera: Conjunctivae normal. Pupils: Pupils are equal, round, and reactive to light. Neck: Thyroid: No thyroid mass or thyromegaly. Vascular: No carotid bruit. Trachea: Phonation normal. Cardiovascular: Rate and Rhythm: Normal rate and regular rhythm. Heart sounds: Normal heart sounds. No murmur heard. No friction rub. No gallop. Pulmonary: Effort: Pulmonary effort is normal. Breath sounds: Normal breath sounds. No wheezing or rales. Abdominal: General: Bowel sounds are normal. There is no distension. Palpations: Abdomen is soft. There is no mass. Tenderness: There is no abdominal tenderness. Musculoskeletal: General: No swelling or tenderness. Normal range of motion. Cervical back: Normal range of motion and neck supple. No edema. Lymphadenopathy: Cervical: No cervical adenopathy. Skin: General: Skin is warm and dry. Findings: No erythema or rash. Nails: There is no clubbing. Comments: Clearing at base of affected toenails with yellowing of distal toenails Neurological: Mental Status: She is alert and oriented to person, place, and time. Cranial Nerves: No cranial nerve deficit. Motor: Motor function is intact. Coordination: Coordination normal. Gait: Gait is intact. Psychiatric: Attention and Perception: Attention normal. Mood and Affect: Mood and affect normal. Speech: Speech normal. Behavior: Behavior normal. Behavior is cooperative. Thought Content: Thought content normal. Cognition and Memory: Cognition and memory normal. Judgment: Judgment normal. ASSESSMENT/PLAN: 1. Chest pain, unspecified type - ICD9: 786.50, ICD10: R07.9 (primary diagnosis) EKG wnl - ECG B/O W INTERP (MED OFFICE) 2. ARAM (generalized anxiety disorder) - ICD9: 300.02, ICD10: F41.1 - CONSULT TO PSYCHOLOGY 3. Indigestion - ICD9: 536.8, ICD10: K30 Trial of pepcid - FAMOTIDINE 20 MG TABLET 4. Myalgia - ICD9: 729.1, ICD10: M79.10 - THYROID STIMULATING HORMONE - VITAMIN B12 5. Onychomycosis - ICD9: 110.1, ICD10: B35.1 Pt has completed 6 weeks of lamisil She will complete 3 month course 6. Class 1 obesity due to excess calories with body mass index (BMI) of 30.0 to 30.9 in adult, unspecified whether serious comorbidity present - ICD9: 278.00, V85.30, ICD10: E66.09, Z68.30 Lifestyle modification recommended Jennifer Hernandez DO New Medication(s): pepcid; Discussed use, dose and side effects; Patient expresses understanding. [facility] Telephone encounter Note * Telephone Encounter - Sonia Anderson MA - 04/10/2024 3:10 PM EDT Left message requesting patient call office back. Sonia Anderson MA [facility]06-[facility] Miscellaneous Notes* Telephone Encounter - Sonia Anderson MA - 04/10/2024 3:10 PM EDT Left message requesting patient call office back. Sonia Anderson MA * Telephone Encounter - Nidia Yang APRN.CNP - 04/10/2024 2:58 PM EDT She was already on a long steroid taper and a Medrol dose mack so I'm not if another round would be effective. She may need a Kenalog injection. Would she like to come in for that or try the steroid injection. It looks like she has Hydroxyzine on her med list, this can help with the itching. She should probably have an appointment with someone to assess it. * Telephone Encounter - Marylou Sutton MA - 04/10/2024 2:53 PM EDT Patient was seen at the ER for poison cheo and it has now spread into her groin area so she was wondering if something could be sent in for Marylou Sutton MA documented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 include no chest pain, fever, headaches or weakness. Patient presented to clinic today for OMT for neck and back pain. 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 She reports that her pain is the same as it has been before. It is tender and achy without numbness or tingling. The following portions of the patient's history were reviewed and updated as appropriate: allergies, current medications, past family history, past medical history, past social history, past surgicalhistory and problem list. Patient's Medications New Prescriptions No medications on file Previous Medications ALBUTEROL 90 MCG/ACTUATION INHALER Inhale 2 (two) puffs every 4 to 6 hours as needed for wheezing or shortness of breath . AMMONIUM LACTATE (AMLACTIN) 12 % CREAM Apply topically 2 (two) times a day . BUPRENORPHINE-NALOXONE (SUBOXONE) 8-[address] 1 (one) each (8 mg of buprenorphine total) under the tongue 2 (two) times a day . BUPROPION (WELLBUTRIN XL) 150 MG 24 HR TABLET Take 1 (one) tablet (150 mg total) by mouth daily . CYCLOBENZAPRINE (FLEXERIL) 10 MG TABLET Take 1 (one) tablet (10 mg total) by mouth 3 (three) times a day as needed for muscle spasms . GABAPENTIN (NEURONTIN) 300 MG CAPSULE Take 2 (two) capsules (600 mg total) by mouth 3 (three) timesa day . IBUPROFEN (ADVIL,MOTRIN) 200 MG TABLET Take 3 (three) tablets (600 mg total) by mouth every 12 (twelve) hours Reasons: R rotator cuff shoulder tear. MULTIVITAMIN (THERAGRAN) PER TABLET Take 1 (one) tablet by mouth daily . NALOXONE (NARCAN) 4 MG/ACTUATION SPRY Administer 1 spray into one nostril for known or suspected opioid overdose. If patient worsens or does not respond, may repeat in 2-3 minutes. . [id number] (NEOSPORIN) 3.5-400-10,000 JW-EEIF-JQJZ/G OPHTHALMIC OINTMENT Administer into the left eye 3 (three) times a day . OXYBUTYNIN (DITROPAN-XL) 10 MG 24 HR TABLET Take 1 (one) tablet (10 mg total) by mouth daily . Modified Medications No medications on file Discontinued Medications No medications on file Review of Systems Constitutional: Negative for chills, fatigue and fever. HENT: Negative for congestion, hearing loss and tinnitus. Eyes: Negative for visual disturbance. Respiratory: Negative for cough and shortness of breath. Cardiovascular: Negative for chest pain and palpitations. Gastrointestinal: Negative for abdominal distention, abdominal pain, constipation, diarrhea, nauseaand vomiting. Genitourinary: Negative for dysuria. Musculoskeletal: Positive for arthralgias, back pain and neck pain. Negative for myalgias. Skin: Negative for color change. Neurological: Negative for dizziness, weakness, light-headedness and headaches. Psychiatric/Behavioral: Negative for dysphoric mood. The patient is not nervous/anxious. Objective BP 115/76 Pulse 80 Temp 97.8 F (36.6 C) (Temporal) Wt 61.8 kg (136 lb 3.2 oz) LMP 03/24/2015 SpO2 98% BMI 26.60 kg/m Physical Exam Constitutional: General: She is not in acute distress. Appearance: Normal appearance. She is normal weight. HENT: Head: Normocephalic and atraumatic. Right Ear: External ear normal. Left Ear: External ear normal. Nose: Nose normal. Mouth/Throat: Mouth: Mucous membranes are moist. Eyes: Extraocular Movements: Extraocular movements intact. Conjunctiva/sclera: Conjunctivae normal. Pupils: Pupils are equal, round, and reactive to light. Cardiovascular: Rate and Rhythm: Normal rate and regular rhythm. Pulses: Normal pulses. Heart sounds: Normal heart sounds. No murmur heard. Pulmonary: Effort: Pulmonary effort is normal. Breath sounds: Normal breath sounds. Abdominal: General: Abdomen is flat. There is no distension. Palpations: Abdomen is soft. Tenderness: There is no abdominal tenderness. Musculoskeletal: General: Tenderness present. No deformity. Cervical back: Normal range of motion. Comments: Tenderness to palpation of neck, limited ROM of neck due to pain at baseline Tenderness to palpation of back, limited ROM of back due to pain at baseline Skin: General: Skin is warm and dry. Coloration: Skin is not pale. Findings: No erythema. Neurological: General: No focal deficit present. Mental Status: She is alert and oriented to person, place, and time. Mental status is at baseline. Sensory: No sensory deficit. Motor: No weakness. Psychiatric: Mood and Affect: Mood normal. Behavior: Behavior normal. Thought Content: Thought content normal. Judgment: Judgment normal. Osteopathic Exam: TART changes found on exam in neck, back, pelvis, and shoulder regions. Assessment/Plan: Problem List Items Addressed This Visit Somatic dysfunction of upper extremity Risks and benefits of OMT were explained to the pt. Pt expressed understanding and agreed to go forth with treatment. TART changes were present on exam. Somatic dysfunction of the shoulder was treated with BLT technique. Pt's pain severity improved after treatment. Pt's ROM was unchanged after treatment. Pt was encouraged to hydrate well and to use heat, NSAIDs, and ice to mitigate soreness in the following days. Somatic dysfunction of thoracic region Risks and benefits of OMT were explained to the pt. Pt expressed understanding and agreed to go forth with treatment. TART changes were present on exam. Somatic dysfunction of the thoracic was treated with BLT and muscle energy technique. Pt's pain severity remained unchanged after treatment. Pt's ROM was improved after treatment. Pt was encouraged to hydrate well and to use heat, NSAIDs, and iceto mitigate soreness in the following days. Somatic dysfunction of lumbar region Risks and benefits of OMT were explained to the pt. Pt expressed understanding and agreed to go forth with treatment. TART changes were present on exam. Somatic dysfunction of the lumbar spine was treated with BLT and soft tissue technique. Pt's pain severity improved after treatment. Pt's ROM was unchanged after treatment. Pt was encouraged to hydrate well and to use heat, NSAIDs, and ice to mitigate soreness in the following days. Somatic dysfunction of cervical region Risks and benefits of OMT were explained to the pt. Pt expressed understanding and agreed to go forth with treatment. TART changes were present on exam. Somatic dysfunction of the cervical spine was treated with Still and muscle energy technique. Pt's pain severity was unchanged after treatment. Pt's ROM was increased after treatment. Pt was encouraged to hydrate well and to use heat, NSAIDs, andice to mitigate soreness in the following days. Cervicalgia - Primary Chronic, improved in past with OMT Will perform OMT today Advised patient to stretch before working and lifting and to use heat for back pain Close follow up Somatic dysfunction of back Risks and benefits of OMT were explained to the pt. Pt expressed understanding and agreed to go forth with treatment. TART changes were present on exam. Somatic dysfunction of the back was treated with BLT, muscle energy, and soft tissue technique. Pt's pain severity improved after treatment. Pt's ROM was increased after treatment. Pt was encouraged to hydrate well and to use heat, NSAIDs, and ice to mitigate soreness in the following days. Somatic dysfunction of pelvis region Risks and benefits of OMT were explained to the pt. Pt expressed understanding and agreed to go forth with treatment. TART changes were present on exam. Somatic dysfunction of the pelvis was treated with BLT technique. Pt's pain severity improved after treatment. Pt's ROM was increased after treatment. Pt was encouraged to hydrate well and to use heat, NSAIDs, and ice to mitigate soreness in the following days. For any new medications prescribed today, patient was educated about indications for the medication, how to take the medication and potential side effects of the medications. Patient staffed and seen with Dr. Baxter who agrees with this plan. Return in about 2 weeks (around 12/21/2022) for OMT, face, chest/ribs, shoulders. Ely Peres DO PGY1 [facility] documented in this [id number] History of Present illness Narrative* Ariela Baxter DO - 12/07/2022 10:52 AM EST I have personally seen and examined the patient independently of the resident physician. I have reviewed the history, physical, diagnosis and care plan with the resident physician, Ely Peres DO. I confirm the assessment and treatment plan: Patient has increased tension throughout the trap But the cervical spine is much improved Diagnoses and all orders for this visit: Cervicalgia Somatic dysfunction of back Somatic dysfunction of upper extremity Somatic dysfunction of lumbar region Somatic dysfunction of thoracic region Somatic dysfunction of cervical region Somatic dysfunction of pelvis region - I agree with the return to office plan - I have been present with the resident during evaluation of the patient - I agree with the recommendations for the OMT - patient tolerated without complications and was much improved * Ely Peres DO - 12/07/2022 9:50 AM EST Subjective Patient ID: shay Sweeney is a 57 y.o. female. Chief Complaint Patient presents with Neck Pain Pt is here for OMT on neck and shoulders. Neck Pain Pertinent negatives include no chest pain, fever, headaches or weakness. Patient presented to clinic today for OMT for neck and back pain. 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 She reports that her pain is the same as it has been before. It is tender and achy without numbness or tingling. The following portions of the patient's history were reviewed and updated as appropriate: allergies, current medications, past family history, past medical history, past social history, past surgicalhistory and problem list. Patient's Medications New Prescriptions No medications on file Previous Medications ALBUTEROL 90 MCG/ACTUATION INHALER Inhale 2 (two) puffs every 4 to 6 hours as needed for wheezing or shortness of breath . AMMONIUM LACTATE (AMLACTIN) 12 % CREAM Apply topically 2 (two) times a day . BUPRENORPHINE-NALOXONE (SUBOXONE) 8-[address] 1 (one) each (8 mg of buprenorphine total) under the tongue 2 (two) times a day . BUPROPION (WELLBUTRIN XL) 150 MG 24 HR TABLET Take 1 (one) tablet (150 mg total) by mouth daily . CYCLOBENZAPRINE (FLEXERIL) 10 MG TABLET Take 1 (one) tablet (10 mg total) by mouth 3 (three) times a day as needed for muscle spasms . GABAPENTIN (NEURONTIN) 300 MG CAPSULE Take 2 (two) capsules (600 mg total) by mouth 3 (three) timesa day . IBUPROFEN (ADVIL,MOTRIN) 200 MG TABLET Take 3 (three) tablets (600 mg total) by mouth every 12 (twelve) hours Reasons: R rotator cuff shoulder tear. MULTIVITAMIN (THERAGRAN) PER TABLET Take 1 (one) tablet by mouth daily . NALOXONE (NARCAN) 4 MG/ACTUATION SPRY Administer 1 spray into one nostril for known or suspected opioid overdose. If patient worsens or does not respond, may repeat in 2-3 minutes. . [id number]-[id number]-BQUHGCOLK (NEOSPORIN) 3.5-400-10,000 LC-LNQL-IULG/G OPHTHALMIC OINTMENT Administer into the left eye 3 (three) times a day . OXYBUTYNIN (DITROPAN-XL) 10 MG 24 HR TABLET Take 1 (one) tablet (10 mg total) by mouth daily . Modified Medications No medications on file Discontinued Medications No medications on file Review of Systems Constitutional: Negative for chills, fatigue and fever. HENT: Negative for congestion, hearing loss and tinnitus. Eyes: Negative for visual disturbance. Respiratory: Negative for cough and shortness of breath. Cardiovascular: Negative for chest pain and palpitations. Gastrointestinal: Negative for abdominal distention, abdominal pain, constipation, diarrhea, nauseaand vomiting. Genitourinary: Negative for dysuria. Musculoskeletal: Positive for arthralgias, back pain and neck pain. Negative for myalgias. Skin: Negative for color change. Neurological: Negative for dizziness, weakness, light-headedness and headaches. Psychiatric/Behavioral: Negative for dysphoric mood. The patient is not nervous/anxious. Objective BP 115/76 Pulse 80 Temp 97.8 F (36.6 C) (Temporal) Wt 61.8 kg (136 lb 3.2 oz) LMP 03/24/2015 SpO2 98% BMI 26.60 kg/m Physical Exam Constitutional: General: She is not in acute distress. Appearance: Normal appearance. She is normal weight. HENT: Head: Normocephalic and atraumatic. Right Ear: External ear normal. Left Ear: External ear normal. Nose: Nose normal. Mouth/Throat: Mouth: Mucous membranes are moist. Eyes: Extraocular Movements: Extraocular movements intact. Conjunctiva/sclera: Conjunctivae normal. Pupils: Pupils are equal, round, and reactive to light. Cardiovascular: Rate and Rhythm: Normal rate and regular rhythm. Pulses: Normal pulses. Heart sounds: Normal heart sounds. No murmur heard. Pulmonary: Effort: Pulmonary effort is normal. Breath sounds: Normal breath sounds. Abdominal: General: Abdomen is flat. There is no distension. Palpations: Abdomen is soft. Tenderness: There is no abdominal tenderness. Musculoskeletal: General: Tenderness present. No deformity. Cervical back: Normal range of motion. Comments: Tenderness to palpation of neck, limited ROM of neck due to pain at baseline Tenderness to palpation of back, limited ROM of back due to pain at baseline Skin: General: Skin is warm and dry. Coloration: Skin is not pale. Findings: No erythema. Neurological: General: No focal deficit present. Mental Status: She is alert and oriented to person, place, and time. Mental status is at baseline. Sensory: No sensory deficit. Motor: No weakness. Psychiatric: Mood and Affect: Mood normal. Behavior: Behavior normal. Thought Content: Thought content normal. Judgment: Judgment normal. Osteopathic Exam: TART changes found on exam in neck, back, pelvis, and shoulder regions. Assessment/Plan: Problem List Items Addressed This Visit Somatic dysfunction of upper extremity Risks and benefits of OMT were explained to the pt. Pt expressed understanding and agreed to go forth with treatment. TART changes were present on exam. Somatic dysfunction of the shoulder was treated with BLT technique. Pt's pain severity improved after treatment. Pt's ROM was unchanged after treatment. Pt was encouraged to hydrate well and to use heat, NSAIDs, and ice to mitigate soreness in the following days. Somatic dysfunction of thoracic region Risks and benefits of OMT were explained to the pt. Pt expressed understanding and agreed to go forth with treatment. TART changes were present on exam. Somatic dysfunction of the thoracic was treated with BLT and muscle energy technique. Pt's pain severity remained unchanged after treatment. Pt's ROM was improved after treatment. Pt was encouraged to hydrate well and to use heat, NSAIDs, and iceto mitigate soreness in the following days. Somatic dysfunction of lumbar region Risks and benefits of OMT were explained to the pt. Pt expressed understanding and agreed to go forth with treatment. TART changes were present on exam. Somatic dysfunction of the lumbar spine was treated with BLT and soft tissue technique. Pt's pain severity improved after treatment. Pt's ROM was unchanged after treatment. Pt was encouraged to hydrate well and to use heat, NSAIDs, and ice to mitigate soreness in the following days. Somatic dysfunction of cervical region Risks and benefits of OMT were explained to the pt. Pt expressed understanding and agreed to go forth with treatment. TART changes were present on exam. Somatic dysfunction of the cervical spine was treated with Still and muscle energy technique. Pt's pain severity was unchanged after treatment. Pt's ROM was increased after treatment. Pt was encouraged to hydrate well and to use heat, NSAIDs, andice to mitigate soreness in the following days. Cervicalgia - Primary Chronic, improved in past with OMT Will perform OMT today Advised patient to stretch before working and lifting and to use heat for back pain Close follow up Somatic dysfunction of back Risks and benefits of OMT were explained to the pt. Pt expressed understanding and agreed to go forth with treatment. TART changes were present on exam. Somatic dysfunction of the back was treated with BLT, muscle energy, and soft tissue technique. Pt's pain severity improved after treatment. Pt's ROM was increased after treatment. Pt was encouraged to hydrate well and to use heat, NSAIDs, and ice to mitigate soreness in the following days. Somatic dysfunction of pelvis region Risks and benefits of OMT were explained to the pt. Pt expressed understanding and agreed to go forth with treatment. TART changes were present on exam. Somatic dysfunction of the pelvis was treated with BLT technique. Pt's pain severity improved after treatment. Pt's ROM was increased after treatment. Pt was encouraged to hydrate well and to use heat, NSAIDs, and ice to mitigate soreness in the following days. For any new medications prescribed today, patient was educated about indications for the medication, how to take the medication and potential side effects of the medications. Patient staffed and seen with Dr. Baxter who agrees with this plan. Return in about 2 weeks (around 12/21/2022) for OMT, face, chest/ribs, shoulders. Ely Peres DO PGY1 [facility] documented in this [id number] Evaluation + Plan note* Assessment & Plan Note - Mateusz Linares DO - 11/22/2022 3:27 PM ESTAssociated Problem(s): Mixed incontinence Refill provided She is to return to discuss further [id number] Evaluation + Plan note* Assessment & Plan Note - Mateusz Linares DO - 11/22/2022 3:27 PM ESTAssociated Problem(s): Depression Stable on wellbutrin Patient to return further to discuss Refill provided [id number] Miscellaneous Notes* Assessment & Plan Note - Mateusz Linares DO - 11/22/2022 3:27 PM ESTAssociated Problem(s): Mixed incontinence Refill provided She is to return to discuss further * Assessment & Plan Note - Mateusz Linares DO - 11/22/2022 3:27 PM ESTAssociated Problem(s): Depression Stable on wellbutrin Patient to return further to discuss Refill provided * Assessment & Plan Note - Mateusz Linares DO - 11/22/2022 3:26 PM ESTAssociated Problem(s): Cervicalgia Med refill provided; unable to discuss further at wellness visit Patient to follow back in 2-4 weeks to discuss * Assessment & Plan Note - Mateusz Linares DO - 11/22/2022 3:25 PM ESTAssociated Problem(s): Lazy eye of left side Chronic * Assessment & Plan Note - Mateusz Linares DO - 11/22/2022 3:25 PM ESTAssociated Problem(s): History of cigarette smoking Need for pneumococcal vaccine * Assessment & Plan Note - Mateusz Linares DO - 11/22/2022 3:15 PM ESTAssociated Problem(s): Wellness examination Patient is a 57 yo , post-menopausal, presenting for annual exam - Pap smear: in 2018 NILM; s/p robotic assisted supracervical hysterectomy, bilateral salpingectomy, sacrocolpopexy, posterior colporrhaphy, cystourethroscopy, and aborted jain on 05/05/21 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 - Discussed colonoscopy - c-scope in 2018 with recommendation for 3-5 year surveillance - denied concerns for safety - Discussed importance of healthy diet, exercise, Multivitamin/Calcium/Vitamin D use, regular dental visits and seat belt use. - follow back in 2 weeks for OMT - follow back in 2-4 weeks for medication refills - flu and pneumococcal vaccines provided today Of note - patient requested refills on her meds - did not have the time to discuss further; patientwill follow back in 2-4 weeks to discuss med refills and refills will be provided today * Assessment & Plan Note - Mateusz Linares DO - 11/20/2022 11:39 AM ESTAssociated Problem(s): Genital herpes At age 15 - 1st outbreak Every couple of months outbreaks * Assessment & Plan Note - Mateusz Linares DO - 11/20/2022 11:36 AM ESTAssociated Problem(s): Cystocele without uterine prolapse Follows w/ [employer] Planning for surgical options with them Discussed pelvic PT Or home Kegel exercises documented in this [id number] Evaluation + Plan note* Assessment & Plan Note - Mateusz Linares DO - 11/22/2022 3:26 PM ESTAssociated Problem(s): Cervicalgia Med refill provided; unable to discuss further at wellness visit Patient to follow back in 2-4 weeks to discuss [id number] Evaluation + Plan note* Assessment & Plan Note - Mateusz Linares DO - 11/22/2022 3:25 PM ESTAssociated Problem(s): Lazy eye of left side Chronic [id number] Evaluation + Plan note* Assessment & Plan Note - Matuesz Linares DO - 11/22/2022 3:25 PM ESTAssociated Problem(s): History of cigarette smoking Need for pneumococcal vaccine [id number] Evaluation + Plan note* Assessment & Plan Note - Mateusz Linares DO - 11/22/2022 3:15 PM ESTAssociated Problem(s): Wellness examination Patient is a 57 yo , post-menopausal, presenting for annual exam - Pap smear: in 2018 NILM; s/p robotic assisted supracervical hysterectomy, bilateral salpingectomy, sacrocolpopexy, posterior colporrhaphy, cystourethroscopy, and aborted jain on 05/05/21 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 - Discussed colonoscopy - c-scope in 2018 with recommendation for 3-5 year surveillance - denied concerns for safety - Discussed importance of healthy diet, exercise, Multivitamin/Calcium/Vitamin D use, regular dental visits and seat belt use. - follow back in 2 weeks for OMT - follow back in 2-4 weeks for medication refills - flu and pneumococcal vaccines provided today Of note - patient requested refills on her meds - did not have the time to discuss further; patientwill follow back in 2-4 weeks to discuss med refills and refills will be provided today [id number] History of Present illness Narrative* Vikas Bermudez, - 11/20/2022 12:08 PM EST I have personally seen and examined the patient independently of the resident physician. I have reviewed the history, physical, diagnosis and care plan with the resident physician, Mateusz Linares DO.I confirm the assessment and treatment plan: Problem List Genital herpes At age 15 - 1st outbreak Every couple of months outbreaks Cystocele without uterine prolapse Follows w/ [employer] Planning for surgical options Mixed incontinence Relevant Medications oxybutynin (DITROPAN-XL) 10 MG 24 hr tablet Wellness examination - Primary Relevant Orders Hemoglobin A1c Comprehensive Metabolic Panel Lipid Panel Depression Relevant Medications buPROPion (Wellbutrin XL) 150 MG 24 hr tablet Cervicalgia Relevant Medications gabapentin (NEURONTIN) 300 MG capsule cyclobenzaprine (FLEXERIL) 10 MG tablet Lazy eye of left side History of cigarette smoking Relevant Medications pneumococcal conj. 20-valent (PREVNAR 20) 0.5 mL vaccine Other Relevant Orders Pneumococcal conjugate vaccine 20-valent (Completed) PHYSICAL EXAMINATION: General: awake alert and oriented. No acute distress. HENT: Normocephalic, atraumatic, EOMI. NEURO: CN 2-12 Grossly intact. No focal deficits noted. PSYCH: Mood and affect appropriate and congruent. No active SI or HI. No evidence of psychosis. 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 Agree with resident recommend patient schedule a follow up visit to discuss and update her chronic medical conditions she is being treated for but has not had recent dedicated follow up evaluation for. Agree with resident plan to provide influenza and pneumococcal vaccinations at today's visit. Agree with resident plan to recheck labs that she is due for. No red flag symptoms surrounding the tinnitus complaint such as sudden associated hearing loss, unilateral aspect, associated vertigo episodes or any other new neurologic symptoms. Plan on further discussion/evaluation of it at follow up in 1 month. See resident's note for full details. *This is not a complete note, awaiting resident completion prior to attending sign off* * Mateusz Linares DO - 11/20/2022 10:40 AM EST Subjective Patient Name: Zofia Sweeney : 1965 Zofia Sweeney is a 57 y.o. female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 Heart sounds: Normal heart sounds. Pulmonary: Effort: Pulmonary effort is normal. No respiratory distress. Breath sounds: Normal breath sounds. Abdominal: General: Bowel sounds are normal. There is no distension. Palpations: Abdomen is soft. Tenderness: There is no abdominal tenderness. There is no right CVA tenderness, left CVA tenderness, guarding or rebound. Musculoskeletal: Right lower leg: No edema. Left lower leg: No edema. Neurological: Mental Status: She is alert and oriented to person, place, and time. Cranial Nerves: No cranial nerve deficit. Sensory: No sensory deficit. Motor: No weakness. Coordination: Coordination normal. Gait: Gait normal. Assessment and Plan Problem List Wellness examination - Primary Patient is a 57 yo , post-menopausal, presenting for annual exam - Pap smear: in 2018 NILM; s/p robotic assisted supracervical hysterectomy, bilateral salpingectomy, sacrocolpopexy, posterior colporrhaphy, cystourethroscopy, and aborted jain on 05/05/21 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 - Discussed colonoscopy - c-scope in 2018 with recommendation for 3-5 year surveillance - denied concerns for safety - Discussed importance of healthy diet, exercise, Multivitamin/Calcium/Vitamin D use, regular dental visits and seat belt use. - follow back in 2 weeks for OMT - follow back in 2-4 weeks for medication refills - flu and pneumococcal vaccines provided today Of note - patient requested refills on her meds - did not have the time to discuss further; patientwill follow back in 2-4 weeks to discuss med refills and refills will be provided today Relevant Orders Hemoglobin A1c (Completed) Comprehensive Metabolic Panel (Completed) Lipid Panel (Completed) Mixed incontinence Refill provided She is to return to discuss further Relevant Medications oxybutynin (DITROPAN-XL) 10 MG 24 hr tablet Cystocele without uterine prolapse Follows w/ [employer] Planning for surgical options with them Discussed pelvic PT Or home Kegel exercises Depression Stable on wellbutrin Patient to return further to discuss Refill provided Relevant Medications buPROPion (Wellbutrin XL) 150 MG 24 hr tablet Dyspnea on exertion Relevant Medications albuterol 90 mcg/actuation inhaler Flu vaccine need Relevant Orders Influenza IIV4 6mo or >,Fluzone Quad (Completed) History of cigarette smoking Need for pneumococcal vaccine Relevant Orders Pneumococcal conjugate vaccine 20-valent (Completed) Need for pneumococcal vaccine Relevant Orders Pneumococcal conjugate vaccine 20-valent (Completed) Cervicalgia Med refill provided; unable to discuss further at wellness visit Patient to follow back in 2-4 weeks to discuss Relevant Medications gabapentin (NEURONTIN) 300 MG capsule cyclobenzaprine (FLEXERIL) 10 MG tablet Lazy eye of left side Chronic For any new medications prescribed today, patient was educated about indications for the medication, how to take the medication and potential side effects of the medications. Patient staffed and seen with Dr. Bermudez who agrees with this plan. Return in about 4 weeks (around 12/18/2022) for follow up on meds. documented in this [id number] Instructions* Patient Instructions* Mateusz Linares DO - 11/20/2022 11:54 AM EST Follow up with gynecology for bladder Orthopedics for R shoulder Eye doctor for L eye * Attachments The following attachments cannot be sent through Care Everywhere. * Kegel Exercises (Tanzanian) * Bladder: Training (Tanzanian) * Pelvic Exercises for Urinary Incontinence: Video (Tanzanian) documented in this [id number] Evaluation + Plan note* Assessment & Plan Note - Mateusz Linares DO - 11/20/2022 11:39 AM ESTAssociated Problem(s): Genital herpes At age 15 - 1st outbreak Every couple of months outbreaks [id number] Evaluation + Plan note* Assessment & Plan Note - Mateusz Linares DO - 11/20/2022 11:36 AM ESTAssociated Problem(s): Cystocele without uterine prolapse Follows w/ [employer] Planning for surgical options with them Discussed pelvic PT Or home Kegel exercises [id number] Evaluation + Plan note* Assessment & Plan Note - Ortega Hernandez, - 11/06/2022 11:50 AM ESTAssociated Problem(s): Acute conjunctivitis of left eye Viral vs bacterial. Most likely viral, had recent viral URI w/ recent sick contact. No purulent drainage noted on exam. On day 4 of symptoms. Symptoms would likely resolve with conservative treatment alone: warm compresses, artificial tears. Given history of left sided ambylopia and difficulty with closing eyelid completely, patient offered treatment for bacterial conjuctivitis which patient prefers. Will prescribe dfaynhlm-tdivyfsjc-tlnlkfiysek ophthalmic ointment, patient advised to put thin filmon eye up to 3 times a day for 5-7 days. 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 Continue warm compresses, artificial tears. Follow up in 2 weeks for scheduled annual well visit. [id number] Miscellaneous Notes* Assessment & Plan Note - Ortega Hernandez DO - 11/06/2022 11:50 AM ESTAssociated Problem(s): Acute conjunctivitis of left eye Viral vs bacterial. Most likely viral, had recent viral URI w/ recent sick contact. No purulent drainage noted on exam. On day 4 of symptoms. Symptoms would likely resolve with conservative treatment alone: warm compresses, artificial tears. Given history of left sided ambylopia and difficulty with closing eyelid completely, patient offered treatment for bacterial conjuctivitis which patient prefers. Will prescribe ytlpicsi-dxnhofahi-invahxxzvfk ophthalmic ointment, patient advised to put thin filmon eye up to 3 times a day for 5-7 days. 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 Continue warm compresses, artificial tears. Follow up in 2 weeks for scheduled annual well visit. documented in this [id number] History of Present illness Narrative* Vikas Bermudez DO - 11/06/2022 11:34 AM EST I have reviewed the history, physical, diagnosis and care plan with the resident physician, DO Veronique. I confirm the assessment and treatment plan: Problem List Acute conjunctivitis of left eye - Primary Viral vs bacterial. Most likely viral, had recent viral URI w/ recent sick contact. No purulent drainage noted on exam. On day 4 of symptoms. Symptoms would likely resolve with conservative treatment alone: warm compresses, artificial tears. Given history of left sided ambylopia and difficulty with closing eyelid completely, patient offered treatment for bacterial conjuctivitis which patient prefers. Will prescribe ywfkcuar-cbflnocyh-awoosqysljt ophthalmic ointment, patient advised to put thin filmon eye up to 3 times a day for 5-7 days. 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 Continue warm compresses, artificial tears. Follow up in 2 weeks for scheduled annual well visit. Relevant Medications zmkjyohs-mwjpcuffpk-jgdckarwn (NEOSPORIN) 3.5-400-10,000 fm-xawm-rmgj/g ophthalmic ointment Zofia was seen today for conjunctivitis. Diagnoses and all orders for this visit: Acute conjunctivitis of left eye, unspecified acute conjunctivitis type - expwbrna-riphzeksqd-sxggimhfa (NEOSPORIN) 3.5-400-10,000 ya-bamg-tpvi/g ophthalmic ointment; Administer into the left eye 3 (three) times a day . Agree with resident plan to recommend conservative measures including topical bacitracin/polymyxin/neomycin ophthalmic ointment for her conjunctivitis at this time including anticipatory guidance instructions and recommendations on when to contact office for new or worsening symptoms. See resident's note for full details. * Ortega Hernandez DO - 11/06/2022 11:10 AM EST Subjective Patient ID: shay Sweeney is a 57 y.o. female. Chief Complaint Patient presents with Conjunctivitis Pt here re left eyes. It started on last week. Red Left eye. Has a lazy eye from . Started on of last week - has gotten worse since than. [place] like a scratch, Swollen eye, red, discharge. Nothing on the right eye. Is painful. Is legally blind in that eye. More sensitive. Sensitive to light when she wakes up. [place] it was scratchy at first now not having that sensation. But feels like her eye is crusty. Had recent URI starting on , states that she had cough, sore throat. Headache. Mild body aches. These symptoms have gotten better but the eye is still bothersome. Exposure to child with pink eye. Does not wear contacts. Has not tried anything on it. Has been using warm compresses which does help. Denies fevers. Sees an eye doctor once every couple of years. The following portions of the patient's history were reviewed and updated as appropriate: allergies, current medications, past family history, past medical history, past social history, past surgicalhistory and problem list. Patient's Medications New Prescriptions CVJRLXST-ZXRTSYPSEM-YYAWACRXZ (NEOSPORIN) 3.5-400-10,000 PI-PUJM-PCKU/G OPHTHALMIC OINTMENT Administer into the left eye 3 (three) times a day . Previous Medications ACETAMINOPHEN (TYLENOL) 325 MG TABLET Take 2 (two) tablets (650 mg total) by mouth every 6 (six) hours as needed for pain . ALBUTEROL 90 MCG/ACTUATION INHALER Inhale 2 (two) puffs every 4 to 6 hours as needed for wheezing or shortness of breath . AMMONIUM LACTATE (AMLACTIN) 12 % CREAM Apply topically 2 (two) times a day . BUPRENORPHINE-NALOXONE (SUBOXONE) 8-[address] 1 (one) each (8 mg of buprenorphine total) under the tongue 2 (two) times a day . BUPROPION (WELLBUTRIN XL) 150 MG 24 HR TABLET Take 1 (one) tablet (150 mg total) by mouth daily . CYCLOBENZAPRINE (FLEXERIL) 10 MG TABLET Take 1 (one) tablet (10 mg total) by mouth 3 (three) times a day as needed for muscle spasms . DOCUSATE SODIUM (COLACE) 100 MG CAPSULE Take 1 (one) capsule (100 mg total) by mouth once as needed. GABAPENTIN (NEURONTIN) 300 MG CAPSULE Take 2 (two) capsules (600 mg total) by mouth 3 (three) timesa day . MELOXICAM (MOBIC) 15 MG TABLET Take 1 (one) tablet (15 mg total) by mouth daily . MULTIVITAMIN (THERAGRAN) PER TABLET Take 1 (one) tablet by mouth daily . NALOXONE (NARCAN) 4 MG/ACTUATION SPRY Administer 1 spray into one nostril for known or suspected opioid overdose. If patient worsens or does not respond, may repeat in 2-3 minutes. . OXYBUTYNIN (DITROPAN-XL) 10 MG 24 HR TABLET Take 1 (one) tablet (10 mg total) by mouth daily . POLYETHYLENE GLYCOL (GLYCOLAX) 17 GRAM/DOSE POWDER Take 17 (seventeen) g by mouth daily . TERBINAFINE HCL (LAMISIL) 250 MG TABLET Take 1 (one) tablet (250 mg total) by mouth daily . Modified Medications No medications on file Discontinued Medications No medications on file Review of Systems Constitutional: Negative for chills, fatigue and fever. HENT: Positive for congestion (has resolved), rhinorrhea (has resolved), sneezing (has resolved) and sore throat (has resolved). Negative for ear pain. Eyes: Positive for photophobia, discharge and redness. Negative for pain and itching. Respiratory: Positive for cough (has resolved). Negative for shortness of breath and wheezing. Cardiovascular: Negative for chest pain. Gastrointestinal: Negative for abdominal pain. Musculoskeletal: Negative for myalgias. Neurological: Positive for headaches (mild headaches with URI). Objective BP 133/79 Pulse 83 Temp 98 F (36.7 C) Wt 58.5 kg (129 lb) LMP 03/24/2015 SpO2 96% BMI 25.19 kg/m Physical Exam Vitals reviewed. Constitutional: General: She is not in acute distress. Appearance: Normal appearance. HENT: Head: Normocephalic and atraumatic. Eyes: General: Lids are everted, no foreign bodies appreciated. Right eye: No discharge. Left eye: Discharge (mucousy, watery discharge) present.No foreign body. Extraocular Movements: Extraocular movements intact. Conjunctiva/sclera: Right eye: Right conjunctiva is not injected. No exudate or hemorrhage. Left eye: Left conjunctiva is injected (slightly pink). Chemosis present. No exudate or hemorrhage. Comments: Left eye amylopia Cardiovascular: Rate and Rhythm: Normal rate and regular rhythm. Pulses: Normal pulses. Heart sounds: Normal heart sounds. No murmur heard. Pulmonary: Effort: Pulmonary effort is normal. Breath sounds: Normal breath sounds. No wheezing. Abdominal: General: Bowel sounds are normal. There is no distension. Palpations: Abdomen is soft. Neurological: Mental Status: She is alert. Assessment/Plan: Problem List Acute conjunctivitis of left eye - Primary Viral vs bacterial. Most likely viral, had recent viral URI w/ recent sick contact. No purulent drainage noted on exam. On day 4 of symptoms. Symptoms would likely resolve with conservative treatment alone: warm compresses, artificial tears. Given history of left sided ambylopia and difficulty with closing eyelid completely, patient offered treatment for bacterial conjuctivitis which patient prefers. Will prescribe cyjmqsfd-uuzzxprac-gmieqoogrzk ophthalmic ointment, patient advised to put thin filmon eye up to 3 times a day for 5-7 days. 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 Continue warm compresses, artificial tears. Follow up in 2 weeks for scheduled annual well visit. Relevant Medications fkwcvure-sihxcdqfth-lihmgildo (NEOSPORIN) 3.5-400-10,000 ni-eaof-znov/g ophthalmic ointment For any new medications prescribed today, patient was educated about indications for the medication, how to take the medication and potential side effects of the medications. Patient staffed and seen with Dr. Bermudez who agrees with this plan. Return in about 2 weeks (around 11/20/2022), or if symptoms worsen or fail to improve, for Annual Exam. Ortega Hernandez D.O. Data Governance Analyst - PGY-1 [facility] documented in this [id number] Telephone encounter Note* Telephone Encounter - Hussain Kumar DO - 09/12/2022 1:01 PM EST Refills provided for gabapentin and flexeril. Patient received 1 month prescription for Wellbutrin in November 2021. Will need to be evaluated in office before that medication can be refilled. 1. Cervicalgia - cyclobenzaprine (FLEXERIL) 10 MG tablet; Take 1 (one) tablet (10 mg total) by mouth 3 (three) times a day as needed for muscle spasms . Dispense: 90 tablet; Refill: 2 - gabapentin (NEURONTIN) 300 MG capsule; Take 2 (two) capsules (600 mg total) by mouth 3 (three) times a day . Dispense: 180 capsule; Refill: 0 Hussain Kumar DO [facility], PGY-2 [id number] Miscellaneous Notes* Telephone Encounter - Hussain Kumar DO - 09/12/2022 1:01 PM EST Refills provided for gabapentin and flexeril. Patient received 1 month prescription for Wellbutrin in November 2021. Will need to be evaluated in office before that medication can be refilled. 1. Cervicalgia - cyclobenzaprine (FLEXERIL) 10 MG tablet; Take 1 (one) tablet (10 mg total) by mouth 3 (three) times a day as needed for muscle spasms . Dispense: 90 tablet; Refill: 2 - gabapentin (NEURONTIN) 300 MG capsule; Take 2 (two) capsules (600 mg total) by mouth 3 (three) times a day . Dispense: 180 capsule; Refill: 0 Hussain Kumar DO [facility], PGY-2 * Telephone Encounter - Daxa Graham MA - 09/12/2022 12:21 PM EST Medication requested: Gabapentin Flexeril Wellbutrin Days supply requested: 90 Last OFFICE VISIT: 09/11/22 Next OFFICE VISIT: Last Lab if pertinent to refill requested: documented in this [id number] Telephone encounter Note* Telephone Encounter - Daxa Graham MA - 09/12/2022 12:21 PM EST Medication requested: Gabapentin Flexeril Wellbutrin Days supply requested: 90 Last OFFICE VISIT: 09/11/22 Next OFFICE VISIT: Last Lab if pertinent to refill requested: [id number] Evaluation + Plan note* Assessment & Plan Note - Govind Ibanez DO - 09/11/2022 6:24 PM ESTAssociated Problem(s): Onychomycosis Bilateral onychomycosis of all 5 digits present on exam Pt requesting to have toenail removed and does not want toenail to grow back afterwards Podiatry referral ordered Lamisil 250mg daily x 12 weeks ordered Hepatic function panel ordered to be completed in 1 month, previously LFT baseline WNL, will order another hepatic function panel to be performed in 2 months after the first one has been completed Amlactin ordered to help with dry skin in the area [id number] Miscellaneous Notes* Assessment & Plan Note - Govind Ibanez DO - 09/11/2022 6:24 PM ESTAssociated Problem(s): Onychomycosis Bilateral onychomycosis of all 5 digits present on exam Pt requesting to have toenail removed and does not want toenail to grow back afterwards Podiatry referral ordered Lamisil 250mg daily x 12 weeks ordered Hepatic function panel ordered to be completed in 1 month, previously LFT baseline WNL, will order another hepatic function panel to be performed in 2 months after the first one has been completed Amlactin ordered to help with dry skin in the area documented in this [id number] History of Present illness Narrative* Ariela Baxter DO - 09/11/2022 10:50 AM EST I have reviewed the history, physical, diagnosis and care plan with the resident physician, Govind David DO. I confirm the assessment and treatment plan: There are no diagnoses linked to this encounter. - I agree with the return to office plan - I agree with the prescriptions given to the patient - discussed the case with the resident prior to patient departure from the office * Govind Ibanez DO - 09/11/2022 10:40 AM EST Subjective Patient ID: is Zofia Caballero Patel is a 57 y.o. female. Chief Complaint Patient presents with Nail Problem Pt here for fungus on both big toenails. Pt states there's time when she can't even put the shoes on. Pt states it's painful she put anti fungel cream on it and it didn't do anything. HPI Toenail fungus Has been ongoing for years Pt is unsure where she got it from, denies public shower use Over the past few months it has become increasingly painful Has tried topical antifungals without success She denies any purulence, fevers, chills, nausea, vomiting Shes able to ambulate or walk without difficulty States the nail has been curling inwards on both sides The following portions of the patient's history were reviewed and updated as appropriate: allergies, current medications, past family history, past medical history, past social history, past surgicalhistory and problem list. Patient's Medications New Prescriptions AMMONIUM LACTATE (AMLACTIN) 12 % CREAM Apply topically 2 (two) times a day . TERBINAFINE HCL (LAMISIL) 250 MG TABLET Take 1 (one) tablet (250 mg total) by mouth daily . Previous Medications ACETAMINOPHEN (TYLENOL) 325 MG TABLET Take 2 (two) tablets (650 mg total) by mouth every 6 (six) hours as needed for pain . ALBUTEROL 90 MCG/ACTUATION INHALER Inhale 2 (two) puffs every 4 to 6 hours as needed for wheezing or shortness of breath . BUPRENORPHINE-NALOXONE (SUBOXONE) 8-[address] 1 (one) each (8 mg of buprenorphine total) under the tongue 2 (two) times a day . BUPROPION (WELLBUTRIN XL) 150 MG 24 HR TABLET Take 1 (one) tablet (150 mg total) by mouth daily . CYCLOBENZAPRINE (FLEXERIL) 10 MG TABLET Take 1 (one) tablet (10 mg total) by mouth 3 (three) times a day as needed for muscle spasms . DOCUSATE SODIUM (COLACE) 100 MG CAPSULE Take 1 (one) capsule (100 mg total) by mouth once as needed. GABAPENTIN (NEURONTIN) 300 MG CAPSULE Take 2 (two) capsules (600 mg total) by mouth 3 (three) timesa day . MELOXICAM (MOBIC) 15 MG TABLET Take 1 (one) tablet (15 mg total) by mouth daily . MULTIVITAMIN (THERAGRAN) PER TABLET Take 1 (one) tablet by mouth daily . OXYBUTYNIN (DITROPAN-XL) 10 MG 24 HR TABLET Take 1 (one) tablet (10 mg total) by mouth daily . POLYETHYLENE GLYCOL (GLYCOLAX) 17 GRAM/DOSE POWDER Take 17 (seventeen) g by mouth daily . Modified Medications No medications on file Discontinued Medications No medications on file Review of Systems Constitutional: Negative for chills, fatigue and fever. Respiratory: Negative for cough, chest tightness and shortness of breath. Cardiovascular: Negative for chest pain and palpitations. Gastrointestinal: Negative for diarrhea, nausea and vomiting. Skin: Nail abnormality Objective BP 125/79 Pulse 91 Temp 98.3 F (36.8 C) (Temporal) Resp 16 Wt 60.5 kg (133 lb 6.4 oz) LMP03/24/2015 SpO2 96% BMI 26.05 kg/m Physical Exam Constitutional: Appearance: Normal appearance. HENT: Head: Normocephalic and atraumatic. Right Ear: External ear normal. Left Ear: External ear normal. Nose: Nose normal. Mouth/Throat: Mouth: Mucous membranes are moist. Pharynx: Oropharynx is clear. Eyes: Extraocular Movements: Extraocular movements intact. Conjunctiva/sclera: Conjunctivae normal. Pupils: Pupils are equal, round, and reactive to light. Cardiovascular: Rate and Rhythm: Normal rate and regular rhythm. Pulses: Normal pulses. Heart sounds: Normal heart sounds. Pulmonary: Effort: Pulmonary effort is normal. Breath sounds: Normal breath sounds. Musculoskeletal: General: Normal range of motion. Cervical back: Normal range of motion and neck supple. Feet: Right foot: Toenail Condition: Right toenails are abnormally thick and ingrown. Fungal disease present. Left foot: Toenail Condition: Left toenails are abnormally thick and ingrown. Fungal disease present. Comments: Abnormally thick toenail present bilaterally on all 5 digits, noted to be worse on the right compared to the left Skin: General: Skin is warm and dry. Neurological: General: No focal deficit present. Mental Status: She is alert and oriented to person, place, and time. Psychiatric: Mood and Affect: Mood normal. Behavior: Behavior normal. Assessment/Plan: Problem List Onychomycosis - Primary Bilateral onychomycosis of all 5 digits present on exam Pt requesting to have toenail removed and does not want toenail to grow back afterwards Podiatry referral Lamisil 250mg daily x 12 weeks ordered Hepatic function panel ordered to be completed in 1 month, previously LFT baseline WNL, will order another hepatic function panel to be performed in 2 months after the first one has been completed Amlactin ordered to help with dry skin in the area Relevant Medications terbinafine HCL (LAMISIL) 250 mg tablet Other Relevant Orders Hepatic Function Panel Ambulatory referral to Podiatry Dry skin Relevant Medications ammonium lactate (AMLACTIN) 12 % cream For any new medications prescribed today, patient was educated about indications for the medication, how to take the medication and potential side effects of the medications. Patient staffed and seen with Dr. Baxter who agrees with this plan. Return in about 1 month (around 10/11/2022) for Annual Exam. documented in this [id number] History of Present illness Narrative* Ariela Baxter DO - 09/11/2022 10:50 AM EST I have personally seen and examined the patient independently of the resident physician. I have reviewed the history, physical, diagnosis and care plan with the resident physician, Govind Ibanez DO. Iconfirm the assessment and treatment plan: Vitals: 09/11/22 1030 BP: 125/79 Pulse: 91 Resp: 16 Temp: 98.3 F (36.8 C) TempSrc: Temporal SpO2: 96% Weight: 60.5 kg (133 lb 6.4 oz) Patient has curved dystrophic nails noted in the big toes, with surrounding dry skin in areas Diagnoses and all orders for this visit: Onychomycosis - terbinafine HCL (LAMISIL) 250 mg tablet; Take 1 (one) tablet (250 mg total) by mouth daily . - Hepatic Function Panel; Future - Ambulatory referral to Podiatry; Future Dry skin - ammonium lactate (AMLACTIN) 12 % cream; Apply topically 2 (two) times a day . - I agree with the amlactin - I agree with the lamisil - I agree with referral - I agree with the return to office plan - I agree with the prescriptions given to the patient - I have been present with the resident during evaluation of the patient * Govind Ibanez DO - 09/11/2022 10:40 AM EST Subjective Patient ID: shay Sweeney is a 57 y.o. female. Chief Complaint Patient presents with Nail Problem Pt here for fungus on both big toenails. Pt states there's time when she can't even put the shoes on. Pt states it's painful she put anti fungel cream on it and it didn't do anything. HPI Toenail fungus Has been ongoing for years Pt is unsure where she got it from, denies public shower use Over the past few months it has become increasingly painful Has tried topical antifungals without success She denies any purulence, fevers, chills, nausea, vomiting Shes able to ambulate or walk without difficulty States the nail has been curling inwards on both sides The following portions of the patient's history were reviewed and updated as appropriate: allergies, current medications, past family history, past medical history, past social history, past surgicalhistory and problem list. Patient's Medications New Prescriptions AMMONIUM LACTATE (AMLACTIN) 12 % CREAM Apply topically 2 (two) times a day . TERBINAFINE HCL (LAMISIL) 250 MG TABLET Take 1 (one) tablet (250 mg total) by mouth daily . Previous Medications ACETAMINOPHEN (TYLENOL) 325 MG TABLET Take 2 (two) tablets (650 mg total) by mouth every 6 (six) hours as needed for pain . ALBUTEROL 90 MCG/ACTUATION INHALER Inhale 2 (two) puffs every 4 to 6 hours as needed for wheezing or shortness of breath . BUPRENORPHINE-NALOXONE (SUBOXONE) 8-[address] 1 (one) each (8 mg of buprenorphine total) under the tongue 2 (two) times a day . BUPROPION (WELLBUTRIN XL) 150 MG 24 HR TABLET Take 1 (one) tablet (150 mg total) by mouth daily . CYCLOBENZAPRINE (FLEXERIL) 10 MG TABLET Take 1 (one) tablet (10 mg total) by mouth 3 (three) times a day as needed for muscle spasms . DOCUSATE SODIUM (COLACE) 100 MG CAPSULE Take 1 (one) capsule (100 mg total) by mouth once as needed. GABAPENTIN (NEURONTIN) 300 MG CAPSULE Take 2 (two) capsules (600 mg total) by mouth 3 (three) timesa day . MELOXICAM (MOBIC) 15 MG TABLET Take 1 (one) tablet (15 mg total) by mouth daily . MULTIVITAMIN (THERAGRAN) PER TABLET Take 1 (one) tablet by mouth daily . OXYBUTYNIN (DITROPAN-XL) 10 MG 24 HR TABLET Take 1 (one) tablet (10 mg total) by mouth daily . POLYETHYLENE GLYCOL (GLYCOLAX) 17 GRAM/DOSE POWDER Take 17 (seventeen) g by mouth daily . Modified Medications No medications on file Discontinued Medications No medications on file Review of Systems Constitutional: Negative for chills, fatigue and fever. Respiratory: Negative for cough, chest tightness and shortness of breath. Cardiovascular: Negative for chest pain and palpitations. Gastrointestinal: Negative for diarrhea, nausea and vomiting. Skin: Nail abnormality Objective BP 125/79 Pulse 91 Temp 98.3 F (36.8 C) (Temporal) Resp 16 Wt 60.5 kg (133 lb 6.4 oz) LMP03/24/2015 SpO2 96% BMI 26.05 kg/m Physical Exam Constitutional: Appearance: Normal appearance. HENT: Head: Normocephalic and atraumatic. Right Ear: External ear normal. Left Ear: External ear normal. Nose: Nose normal. Mouth/Throat: Mouth: Mucous membranes are moist. Pharynx: Oropharynx is clear. Eyes: Extraocular Movements: Extraocular movements intact. Conjunctiva/sclera: Conjunctivae normal. Pupils: Pupils are equal, round, and reactive to light. Cardiovascular: Rate and Rhythm: Normal rate and regular rhythm. Pulses: Normal pulses. Heart sounds: Normal heart sounds. Pulmonary: Effort: Pulmonary effort is normal. Breath sounds: Normal breath sounds. Musculoskeletal: General: Normal range of motion. Cervical back: Normal range of motion and neck supple. Feet: Right foot: Toenail Condition: Right toenails are abnormally thick and ingrown. Fungal disease present. Left foot: Toenail Condition: Left toenails are abnormally thick and ingrown. Fungal disease present. Comments: Abnormally thick toenail present bilaterally on all 5 digits, noted to be worse on the right compared to the left Skin: General: Skin is warm and dry. Neurological: General: No focal deficit present. Mental Status: She is alert and oriented to person, place, and time. Psychiatric: Mood and Affect: Mood normal. Behavior: Behavior normal. Assessment/Plan: Problem List Onychomycosis - Primary Bilateral onychomycosis of all 5 digits present on exam Pt requesting to have toenail removed and does not want toenail to grow back afterwards Podiatry referral Lamisil 250mg daily x 12 weeks ordered Hepatic function panel ordered to be completed in 1 month, previously LFT baseline WNL, will order another hepatic function panel to be performed in 2 months after the first one has been completed Amlactin ordered to help with dry skin in the area Relevant Medications terbinafine HCL (LAMISIL) 250 mg tablet Other Relevant Orders Hepatic Function Panel Ambulatory referral to Podiatry Dry skin Relevant Medications ammonium lactate (AMLACTIN) 12 % cream For any new medications prescribed today, patient was educated about indications for the medication, how to take the medication and potential side effects of the medications. Patient staffed and seen with Dr. Baxter who agrees with this plan. Return in about 1 month (around 10/11/2022) for Annual Exam. documented in this [id number] Telephone encounter Note* Telephone Encounter - West Solis DO - 09/08/2022 5:06 PM EST I will send a one month refill of mobic to help her get to the office for a visit. We do not fill gabapentin over the phone. [id number] Miscellaneous Notes* Telephone Encounter - West Solis DO - 09/08/2022 5:06 PM EST I will send a one month refill of mobic to help her get to the office for a visit. We do not fill gabapentin over the phone. * Telephone Encounter - Izabela Sylvester MA - 09/08/2022 4:20 PM EST Medication requested: gabapentin (NEURONTIN) 300 MG capsule meloxicam (MOBIC) 15 MG tablet Days supply requested: 30 Last OFFICE VISIT:05/15/2022 Next OFFICE VISIT: 09/11/2022 Last Lab if pertinent to refill requested: * Telephone Encounter - Izabela Sylvester MA - 09/08/2022 4:20 PM EST ----- Message from Tami Jade sent at 09/08/2022 4:10 PM EST ----- Regarding: Rx refill Pt stating that she is completely out and is in pain MEDICATION REFILL REQUEST: PCP: Mateusz Linares DO Patient called 09/08/22 and is requesting a medication refill for gabapentin (NEURONTIN) 300 MG capsule meloxicam (MOBIC) 15 MG tablet . This was confirmed from the current medication list found in the patients chart. Supply Requested: # of days: 30 days Method of receiving: Send to pharmacy Last set of flowsheet rows for OARRS report: OARRS/DANIELxCHECK Report Received and Assessed: 04/17/2022 Date controlled substance agreement signed: No data found Date of last drug screen: No data found Functional Assessment: No data found Will this refill be sent to the preferred pharmacy listed below? Yes Preferred pharmacies: [address] ([facility], [address] ([facility]) [facility] Pt Call Back Number Home Phone Not on file. Work Phone Not on file. Patient call back message sent to the primary care clinical pool. Tami Jade documented in this [id number] Telephone encounter Note* Telephone Encounter - Izabela Sylvester MA - 09/08/2022 4:20 PM EST Medication requested: gabapentin (NEURONTIN) 300 MG capsule meloxicam (MOBIC) 15 MG tablet Days supply requested: 30 Last OFFICE VISIT:05/15/2022 Next OFFICE VISIT: 09/11/2022 Last Lab if pertinent to refill requested: [id number] Telephone encounter Note* Telephone Encounter - Izabela Sylvester MA - 09/08/2022 4:20 PM EST ----- Message from Tami Jade sent at 09/08/2022 4:10 PM EST ----- Regarding: Rx refill Pt stating that she is completely out and is in pain MEDICATION REFILL REQUEST: PCP: Mateusz Linares DO Patient called 09/08/22 and is requesting a medication refill for gabapentin (NEURONTIN) 300 MG capsule meloxicam (MOBIC) 15 MG tablet . This was confirmed from the current medication list found in the patients chart. Supply Requested: # of days: 30 days Method of receiving: Send to pharmacy Last set of flowsheet rows for OARRS report: OARRS/NARxCHECK Report Received and Assessed: 04/17/2022 Date controlled substance agreement signed: No data found Date of last drug screen: No data found Functional Assessment: No data found Will this refill be sent to the preferred pharmacy listed below? Yes Preferred pharmacies: [address] ([address] ([facility]) [facility] Pt Call Back Number Home Phone Not on file. Work Phone Not on file. Patient call back message sent to the primary care clinical pool. Tami Jade [id number] Evaluation + Plan note* Assessment & Plan Note - Yomi Ivey DO - 06/02/2022 1:12 PM EDTAssociated Problem(s): Somatic dysfunction of cervical region Structural dysfunction and TART changes likely associated with shoulder injury compensation. OMT performed today for symptomatic control and she will return to care in our office in 2 weeks for additional OMT. [id number] Miscellaneous Notes* Assessment & Plan Note - Yomi Ivey DO - 06/02/2022 1:12 PM EDTAssociated Problem(s): Somatic dysfunction of cervical region Structural dysfunction and TART changes likely associated with shoulder injury compensation. OMT performed today for symptomatic control and she will return to care in our office in 2 weeks for additional OMT. * Assessment & Plan Note - Yomi Ivey DO - 06/02/2022 1:11 PM EDTAssociated Problem(s): Somatic dysfunction of lumbar region Structural dysfunction and TART changes likely associated with shoulder injury compensation. OMT performed today for symptomatic control and she will return to care in our office in 2 weeks for additional OMT. * Assessment & Plan Note - Yomi Ivey DO - 06/02/2022 1:10 PM EDTAssociated Problem(s): Somatic dysfunction of thoracic region Structural dysfunction and TART changes likely associated with shoulder injury compensation. OMT performed today for symptomatic control and she will return to care in our office in 2 weeks for additional OMT. * Assessment & Plan Note - Yomi Ivey DO - 05/16/2022 9:23 AM EDTAssociated Problem(s): Somatic dysfunction of lower extremity Chronic piriformis syndrome causing radiating pain down both legs. Counterstrain and myofascial release was performed on both piriformis muscles and patient had good relief with this treatment. She will return to care in 2 weeks for repeat treatment. * Assessment & Plan Note - Yomi Ivey DO - 05/16/2022 9:22 AM EDTAssociated Problem(s): Somatic dysfunction of upper extremity Chronic arthritic pain of both rotator cuff regions complicated by supraspinatus tear on right shoulder. OMT was performed today on both shoulders with the patient benefit. Return to care in 2 weeks for repeat OMT * Assessment & Plan Note - Yomi Ivey DO - 05/15/2022 5:34 PM EDTAssociated Problem(s): Rotator cuff tear arthropathy of right shoulder MRI finding of supraspinatus rupture with tendon retraction discussed with patient today and she expresses understanding. She understands she will be referred to orthopedic surgery for surgical repair. OMT performed today for symptomatic control and she will return to care in our office in 2 weeks for additional OMT. In the meantime she understands she can continue alternating ibuprofen and acetaminophen for pain control. * Assessment & Plan Note - Yomi Ivey DO - 05/15/2022 4:38 PM EDTAssociated Problem(s): Chronic pain of both shoulders MRI obtained on 05/12 showed tear of the right supraspinatus. Result was shared and discussed with patient and she expresses understanding of the need for surgical repair. OMT continues to be helpful and desired by patient and muscle energy and counterstrain today was beneficial again. RTC in 2 weeks for repeat OMT. documented in this [id number] Evaluation + Plan note* Assessment & Plan Note - Yomi Ivey DO - 06/02/2022 1:11 PM EDTAssociated Problem(s): Somatic dysfunction of lumbar region Structural dysfunction and TART changes likely associated with shoulder injury compensation. OMT performed today for symptomatic control and she will return to care in our office in 2 weeks for additional OMT. [id number] Evaluation + Plan note* Assessment & Plan Note - Yomi Ivey DO - 06/02/2022 1:10 PM EDTAssociated Problem(s): Somatic dysfunction of thoracic region Structural dysfunction and TART changes likely associated with shoulder injury compensation. OMT performed today for symptomatic control and she will return to care in our office in 2 weeks for additional OMT. [id number] Evaluation + Plan note* Assessment & Plan Note - Yomi Ivey DO - 05/16/2022 9:23 AM EDTAssociated Problem(s): Somatic dysfunction of lower extremity Chronic piriformis syndrome causing radiating pain down both legs. Counterstrain and myofascial release was performed on both piriformis muscles and patient had good relief with this treatment. She will return to care in 2 weeks for repeat treatment. [id number] Miscellaneous Notes* Assessment & Plan Note - Yomi Ivey DO - 05/16/2022 9:23 AM EDTAssociated Problem(s): Somatic dysfunction of lower extremity Chronic piriformis syndrome causing radiating pain down both legs. Counterstrain and myofascial release was performed on both piriformis muscles and patient had good relief with this treatment. She will return to care in 2 weeks for repeat treatment. * Assessment & Plan Note - Yomi Ivey DO - 05/16/2022 9:22 AM EDTAssociated Problem(s): Somatic dysfunction of upper extremity Chronic arthritic pain of both rotator cuff regions complicated by supraspinatus tear on right shoulder. OMT was performed today on both shoulders with the patient benefit. Return to care in 2 weeks for repeat OMT * Assessment & Plan Note - Yomi Ivey DO - 05/15/2022 5:34 PM EDTAssociated Problem(s): Rotator cuff tear arthropathy of right shoulder MRI finding of supraspinatus rupture with tendon retraction discussed with patient today and she expresses understanding. She understands she will be referred to orthopedic surgery for surgical repair. OMT performed today for symptomatic control and she will return to care in our office in 2 weeks for additional OMT. In the meantime she understands she can continue alternating ibuprofen and acetaminophen for pain control. * Assessment & Plan Note - Yomi Ivey DO - 05/15/2022 4:38 PM EDTAssociated Problem(s): Chronic pain of both shoulders MRI obtained on 05/12 showed tear of the right supraspinatus. Result was shared and discussed with patient and she expresses understanding of the need for surgical repair. OMT continues to be helpful and desired by patient and muscle energy and counterstrain today was beneficial again. RTC in 2 weeks for repeat OMT. documented in this [id number] Evaluation + Plan note* Assessment & Plan Note - Yomi Ivey DO - 05/16/2022 9:22 AM EDTAssociated Problem(s): Somatic dysfunction of upper extremity Chronic arthritic pain of both rotator cuff regions complicated by supraspinatus tear on right shoulder. OMT was performed today on both shoulders with the patient benefit. Return to care in 2 weeks for repeat OMT [id number] Evaluation + Plan note* Assessment & Plan Note - Yomi Ivey DO - 05/15/2022 5:34 PM EDTAssociated Problem(s): Rotator cuff tear arthropathy of right shoulder MRI finding of supraspinatus rupture with tendon retraction discussed with patient today and she expresses understanding. She understands she will be referred to orthopedic surgery for surgical repair. OMT performed today for symptomatic control and she will return to care in our office in 2 weeks for additional OMT. In the meantime she understands she can continue alternating ibuprofen and acetaminophen for pain control. [id number] History of Present illness Narrative* Zina Bustos DO - 05/15/2022 4:57 PM EDT I have personally seen and examined the patient independently of the resident physician. I have reviewed the history, physical, diagnosis and care plan with the resident physician, Yomi Ivey DO. I confirm the assessment and treatment plan: BP 123/77 Pulse 75 Temp 97.3 F (36.3 C) Wt 67.6 kg (149 lb) LMP 03/24/2015 SpO2 95% BMI29.10 kg/m Very pleasant 56 y.o. female. Heart RRR. Lungs CTAB. Diagnoses and all orders for this visit: Chronic pain of both shoulders Somatic dysfunction of upper extremity Somatic dysfunction of lower extremity Rotator cuff tear arthropathy of right shoulder - Ambulatory referral to Orthopedic Surgery; Future Somatic dysfunction of lumbar region Piriformis syndrome of both sides Right rotator cuff full thickness tear: Noted on MRI. I agree with referral to orthopedics to discuss surgical options. Left shoulder pain: reports improvement with OMT for about 2 days prior. She is working which exacerbates her symptoms. Uses OTC Advil and tylenol. I agree with the OMT provider. I was present for the OMT provided. Piriformis syndrome: I agree with the OMT provided today. I agree with the stretches provided. * Yomi Ivey DO - 05/15/2022 4:20 PM EDT Subjective Patient ID: Zofia Sweeney Chief Complaint Patient presents with Shoulder Pain Right shoulder pain Follow up 1 week for low back and shoulder pain after OMT benefitted her symptoms and to discuss MRI results. MRI was obtained 3 days ago for shoulders. SHOULDER PAIN Patient says that she injured her right shoulder on the job about January or December of this year. She says she was reaching for an object overhead and felt something give way in her right shoulder. She presents today after getting her MRI. Both arms and pain worst at night - no new change in pain or weakness. Chronic issue since injury in december, injury on right side. Left side also hurts but sensation is different, patient attributes to arthritis. MRI 05/12 findings: There is significant motion artifact which degrades quality. There is a [id number] full-thickness rupture of the supraspinatus tendon with tendon retraction measuring 2.7 cm from the greater tuberosity. See image 11, coronal T2 fat sat sequence. Prominent bursal fluid noted. No muscle atrophy at this time. Mild AC joint arthropathy. No significant glenohumeral joint arthrosis. No evidenceof full-thickness biceps tendon tear. Mild biceps tendon sheath fluid seen. No fracture. Results given today. Notes improvement with OMT which lasted for 2 days. 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 LEG PAIN Both legs painful this month. Had recently been getting worse and improved after OMT last week for 3 days. Pain has shot all the way down to her ankles (on left). Usually pain stops at knees. Denies weakness/ numbness/tingling Still taking Advil liquid gels 3 (200 mg) and alternating acetaminophen and ibuprofen, which controls her pain while not working. Zofia Sweeney is a 56 y.o. female who presents today. Denies long-term steroid use, IVDA, change in bowel or bladder habits, loss of bowel or bladder control, saddle anesthesia, unexplained weight loss, fever, night sweats The following portions of the patient's history were reviewed and updated as appropriate: allergies, current medications, past family history, past medical history, past social history, past surgicalhistory and problem list. Patient's Medications New Prescriptions No medications on file Previous Medications ACETAMINOPHEN (TYLENOL) 325 MG TABLET Take 650 mg by mouth every 6 (six) hours as needed for pain . ALBUTEROL 90 MCG/ACTUATION INHALER Inhale 2 (two) puffs every 4 to 6 hours as needed for wheezing or shortness of breath . BUPRENORPHINE-NALOXONE (SUBOXONE) 8-[address] 1 tablet under the tongue 2 (two) times a day . BUPROPION (WELLBUTRIN XL) 150 MG 24 HR TABLET Take 1 (one) tablet (150 mg total) by mouth daily . CYCLOBENZAPRINE (FLEXERIL) 10 MG TABLET Take 1 (one) tablet (10 mg total) by mouth 3 (three) times a day as needed for muscle spasms . DOCUSATE SODIUM (COLACE) 100 MG CAPSULE Take 1 capsule by mouth once as needed . GABAPENTIN (NEURONTIN) 300 MG CAPSULE Take 2 (two) capsules (600 mg total) by mouth 3 (three) timesa day . MELOXICAM (MOBIC) 15 MG TABLET Take 1 (one) tablet (15 mg total) by mouth daily . MULTIVITAMIN (THERAGRAN) PER TABLET Take 1 tablet by mouth daily . OXYBUTYNIN (DITROPAN-XL) 10 MG 24 HR TABLET Take 10 mg by mouth daily . POLYETHYLENE GLYCOL (GLYCOLAX) 17 GRAM/DOSE POWDER Take 17 g by mouth daily . Modified Medications No medications on file Discontinued Medications No medications on file Review of Systems Constitutional: Negative for chills, diaphoresis, fever and unexpected weight change. HENT: Positive for dental problem (jaw locks up when she wakes up for last few months, has not had chance to see dentist yet). Negative for nosebleeds, postnasal drip, rhinorrhea, sore throat and trouble swallowing. Eyes: Negative for pain, discharge, redness and itching. Respiratory: Negative for cough, choking, chest tightness and shortness of breath. Cardiovascular: Negative for chest pain, palpitations and leg swelling. Gastrointestinal: Positive for constipation (sometimes. not new, attributes to her diet). Negative for abdominal pain, diarrhea, nausea and vomiting. Endocrine: Negative for cold intolerance, heat intolerance and polyuria. Genitourinary: Negative for difficulty urinating, dyspareunia and dysuria. Musculoskeletal: Positive for arthralgias and gait problem (leg pain.). Negative for joint swelling. Skin: Negative for rash and wound. Neurological: Negative for dizziness, light-headedness and numbness. Hematological: Does not bruise/bleed easily. Psychiatric/Behavioral: Positive for sleep disturbance (pain with shoulders). Negative for dysphoric mood and hallucinations. The patient is not nervous/anxious (well controlled with medications). Objective BP 123/77 Pulse 75 Temp 97.3 F (36.3 C) Wt 67.6 kg (149 lb) LMP 03/24/2015 SpO2 95% BMI29.10 kg/m Physical Exam Constitutional: General: She is not in acute distress. Appearance: Normal appearance. She is not ill-appearing, toxic-appearing or diaphoretic. HENT: Head: Normocephalic and atraumatic. Eyes: General: No scleral icterus. Right eye: No discharge. Left eye: No discharge. Conjunctiva/sclera: Conjunctivae normal. Cardiovascular: Rate and Rhythm: Normal rate and regular rhythm. Pulmonary: Effort: Pulmonary effort is normal. No respiratory distress. Breath sounds: Normal breath sounds. Musculoskeletal: General: Tenderness and signs of injury (right shoulder) present. No swelling or deformity. Right lower leg: No edema. Left lower leg: No edema. Skin: General: Skin is warm and dry. Coloration: Skin is not jaundiced. Neurological: General: No focal deficit present. Mental Status: She is alert. Gait: Gait abnormal. Psychiatric: Mood and Affect: Mood normal. Behavior: Behavior normal. Thought Content: Thought content normal. Osteopathic: Osteopathic Medical Exam: Head: Treatment Comments: Performed vault hold to help patient relax cervical paraspinals. Patient reports improvement. TAR T changes show decreased ropiness after treatment. Cervical/Neck: TART Exam: TART exam positive for tissue texture and tenderness. Thoracic: TART Exam: TART exam positive for tissue texture and tenderness. Treatment Comments: Performed trap release due to obvious tenderness and tart changes associated with her work and stress of supraspinatus tear on right shoulder. Patient reports significant relaxation and benefit with treatment. TA RT improvements with regards to decreased tenderness and improved tissue texture Lumbar: Osteopathic Lumbar Exam: TART Exam: TART exam positive for tissue texture and tenderness. Treatment Comments: Bilateral extension with extreme ropiness and tightness in general lumbar region associated with her work. Myofascial release performed bilaterally with great patient response andimproved range of motion with decreased ropiness and loosening of fascia detectable. Lower Extremity: Treatment Comments: Bilateral tender points associated with anatomical piriformis. Counterstrain performed bilaterally with patient reported improvement and palpable release of tight piriformis bilaterally. Upper Extremity: General Testing: Altered scapular kinetics: Right: Positive Shoulder: Hawkin's Test: Right: Positive Treatment Comments: Bilateral shoulder tenderness and decreased range of motion consistent with MRIresult of right sided suprascapular rupture and patient reported left side arthritic changes. Muscle energy and counterstrain performed primarily on anterior side of rotator cuff with biceps muscle and pectoralis minor involvement. Patient reports improvement and palpable changes detectable with regards to decreased tissue texture tightness and improved local pulse and fluid motion. Assessment/Plan: Problem List Chronic pain of both shoulders - Primary MRI obtained on 05/12 showed tear of the right supraspinatus. Result was shared and discussed with patient and she expresses understanding of the need for surgical repair. OMT continues to be helpful and desired by patient and muscle energy and counterstrain today was beneficial again. RTC in 2 weeks for repeat OMT. Somatic dysfunction of upper extremity Chronic arthritic pain of both rotator cuff regions complicated by supraspinatus tear on right shoulder. OMT was performed today on both shoulders with the patient benefit. Return to care in 2 weeks for repeat OMT Somatic dysfunction of lower extremity Chronic piriformis syndrome causing radiating pain down both legs. Counterstrain and myofascial release was performed on both piriformis muscles and patient had good relief with this treatment. She will return to care in 2 weeks for repeat treatment. Rotator cuff tear arthropathy of right shoulder MRI finding of supraspinatus rupture with tendon retraction discussed with patient today and she expresses understanding. She understands she will be referred to orthopedic surgery for surgical repair. OMT performed today for symptomatic control and she will return to care in our office in 2 weeks for additional OMT. In the meantime she understands she can continue alternating ibuprofen and acetaminophen for pain control. For any new medications prescribed today, patient was educated about indications for the medication, how to take the medication and potential side effects of the medications. Patient staffed and seen with Dr. Bustos who agrees with this plan. Return in about 2 weeks (around 05/29/2022) for OMT of shoulder, piriformis. documented in this [id number] History of Present illness Narrative* Zina Bustos DO - 05/15/2022 4:57 PM EDT I have personally seen and examined the patient independently of the resident physician. I have reviewed the history, physical, diagnosis and care plan with the resident physician, Yomi Ivey DO. I confirm the assessment and treatment plan: BP 123/77 Pulse 75 Temp 97.3 F (36.3 C) Wt 67.6 kg (149 lb) LMP 03/24/2015 SpO2 95% BMI29.10 kg/m Very pleasant 56 y.o. female. Heart RRR. Lungs CTAB. Diagnoses and all orders for this visit: Chronic pain of both shoulders Somatic dysfunction of upper extremity Somatic dysfunction of lower extremity Rotator cuff tear arthropathy of right shoulder - Ambulatory referral to Orthopedic Surgery; Future Somatic dysfunction of lumbar region Piriformis syndrome of both sides Right rotator cuff full thickness tear: Noted on MRI. I agree with referral to orthopedics to discuss surgical options. Left shoulder pain: reports improvement with OMT for about 2 days prior. She is working which exacerbates her symptoms. Uses OTC Advil and tylenol. I agree with the OMT provider. I was present for the OMT provided. Piriformis syndrome: I agree with the OMT provided today. I agree with the stretches provided. * Yomi Ivey DO - 05/15/2022 4:20 PM EDT Subjective Patient ID: Zofia Sweeney Chief Complaint Patient presents with Shoulder Pain Right shoulder pain Follow up 1 week for low back and shoulder pain after OMT benefitted her symptoms and to discuss MRI results. MRI was obtained 3 days ago for shoulders. SHOULDER PAIN Patient says that she injured her right shoulder on the job about January or December of this year. She says she was reaching for an object overhead and felt something give way in her right shoulder. She presents today after getting her MRI. Both arms and pain worst at night - no new change in pain or weakness. Chronic issue since injury in december, injury on right side. Left side also hurts but sensation is different, patient attributes to arthritis. MRI 05/12 findings Results given today. Notes improvement with OMT which lasted for 2 days. 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 LEG PAIN Both legs painful this month. Had recently been getting worse and improved after OMT last week for 3 days. Pain has shot all the way down to her ankles (on left). Usually pain stops at knees. Denies weakness/ numbness/tingling Still taking Advil liquid gels 3 (200 mg) and alternating acetaminophen and ibuprofen, which controls her pain while not working. Denies long-term steroid use, IVDA, change in bowel or bladder habits, loss of bowel or bladder control, saddle anesthesia, unexplained weight loss, fever, night sweats The following portions of the patient's history were reviewed and updated as appropriate: allergies, current medications, past family history, past medical history, past social history, past surgicalhistory and problem list. Patient's Medications New Prescriptions No medications on file Previous Medications ACETAMINOPHEN (TYLENOL) 325 MG TABLET Take 650 mg by mouth every 6 (six) hours as needed for pain . ALBUTEROL 90 MCG/ACTUATION INHALER Inhale 2 (two) puffs every 4 to 6 hours as needed for wheezing or shortness of breath . BUPRENORPHINE-NALOXONE (SUBOXONE) 8-[address] 1 tablet under the tongue 2 (two) times a day . BUPROPION (WELLBUTRIN XL) 150 MG 24 HR TABLET Take 1 (one) tablet (150 mg total) by mouth daily . CYCLOBENZAPRINE (FLEXERIL) 10 MG TABLET Take 1 (one) tablet (10 mg total) by mouth 3 (three) times a day as needed for muscle spasms . DOCUSATE SODIUM (COLACE) 100 MG CAPSULE Take 1 capsule by mouth once as needed . GABAPENTIN (NEURONTIN) 300 MG CAPSULE Take 2 (two) capsules (600 mg total) by mouth 3 (three) timesa day . MELOXICAM (MOBIC) 15 MG TABLET Take 1 (one) tablet (15 mg total) by mouth daily . MULTIVITAMIN (THERAGRAN) PER TABLET Take 1 tablet by mouth daily . OXYBUTYNIN (DITROPAN-XL) 10 MG 24 HR TABLET Take 10 mg by mouth daily . POLYETHYLENE GLYCOL (GLYCOLAX) 17 GRAM/DOSE POWDER Take 17 g by mouth daily . Modified Medications No medications on file Discontinued Medications No medications on file Review of Systems Constitutional: Negative for chills, diaphoresis, fever and unexpected weight change. HENT: Positive for dental problem (jaw locks up when she wakes up for last few months, has not had chance to see dentist yet). Negative for nosebleeds, postnasal drip, rhinorrhea, sore throat and trouble swallowing. Eyes: Negative for pain, discharge, redness and itching. Respiratory: Negative for cough, choking, chest tightness and shortness of breath. Cardiovascular: Negative for chest pain, palpitations and leg swelling. Gastrointestinal: Positive for constipation (sometimes. not new, attributes to her diet). Negative for abdominal pain, diarrhea, nausea and vomiting. Endocrine: Negative for cold intolerance, heat intolerance and polyuria. Genitourinary: Negative for difficulty urinating, dyspareunia and dysuria. Musculoskeletal: Positive for arthralgias and gait problem (leg pain.). Negative for joint swelling. Skin: Negative for rash and wound. Neurological: Negative for dizziness, light-headedness and numbness. Hematological: Does not bruise/bleed easily. Psychiatric/Behavioral: Positive for sleep disturbance (pain with shoulders). Negative for dysphoric mood and hallucinations. The patient is not nervous/anxious (well controlled with medications). Objective BP 123/77 Pulse 75 Temp 97.3 F (36.3 C) Wt 67.6 kg (149 lb) LMP 03/24/2015 SpO2 95% BMI29.10 kg/m MRI 05/12/22 : There is significant motion artifact which degrades quality. There is a [id number] full-thickness rupture of the supraspinatus tendon with tendon retraction measuring 2.7 cm from the greater tuberosity. See image 11, coronal T2 fat sat sequence. Prominent bursal fluid noted. No muscle atrophy at this time. Mild AC joint arthropathy. No significant glenohumeral joint arthrosis. No evidenceof full-thickness biceps tendon tear. Mild biceps tendon sheath fluid seen. No fracture. Physical Exam Constitutional: General: She is not in acute distress. Appearance: Normal appearance. She is not ill-appearing, toxic-appearing or diaphoretic. HENT: Head: Normocephalic and atraumatic. Eyes: General: No scleral icterus. Right eye: No discharge. Left eye: No discharge. Conjunctiva/sclera: Conjunctivae normal. Cardiovascular: Rate and Rhythm: Normal rate and regular rhythm. Pulmonary: Effort: Pulmonary effort is normal. No respiratory distress. Breath sounds: Normal breath sounds. Musculoskeletal: General: Tenderness and signs of injury (right shoulder) present. No swelling or deformity. Right lower leg: No edema. Left lower leg: No edema. Skin: General: Skin is warm and dry. Coloration: Skin is not jaundiced. Neurological: General: No focal deficit present. Mental Status: She is alert. Gait: Gait abnormal. Psychiatric: Mood and Affect: Mood normal. Behavior: Behavior normal. Thought Content: Thought content normal. Osteopathic: Osteopathic Medical Exam: Head: Treatment Comments: Performed vault hold to help patient relax cervical paraspinals. Patient reports improvement. TAR T changes show decreased ropiness after treatment. Cervical/Neck: TART Exam: TART exam positive for tissue texture and tenderness. Thoracic: TART Exam: TART exam positive for tissue texture and tenderness. Treatment Comments: Performed trap release due to obvious tenderness and tart changes associated with her work and stress of supraspinatus tear on right shoulder. Patient reports significant relaxation and benefit with treatment. TA RT improvements with regards to decreased tenderness and improved tissue texture Lumbar: Osteopathic Lumbar Exam: TART Exam: TART exam positive for tissue texture and tenderness. Treatment Comments: Bilateral extension with extreme ropiness and tightness in general lumbar region associated with her work. Myofascial release performed bilaterally with great patient response andimproved range of motion with decreased ropiness and loosening of fascia detectable. Lower Extremity: Treatment Comments: Bilateral tender points associated with anatomical piriformis. Counterstrain performed bilaterally with patient reported improvement and palpable release of tight piriformis bilaterally. Upper Extremity: General Testing: Altered scapular kinetics: Right: Positive Shoulder: Hawkin's Test: Right: Positive Treatment Comments: Bilateral shoulder tenderness and decreased range of motion consistent with MRIresult of right sided suprascapular rupture and patient reported left side arthritic changes. Muscle energy and counterstrain performed primarily on anterior side of rotator cuff with biceps muscle and pectoralis minor involvement. Patient reports improvement and palpable changes detectable with regards to decreased tissue texture tightness and improved local pulse and fluid motion. Assessment/Plan: Problem List Chronic pain of both shoulders - Primary MRI obtained on 05/12 showed tear of the right supraspinatus. Result was shared and discussed with patient and she expresses understanding of the need for surgical repair. OMT continues to be helpful and desired by patient and muscle energy and counterstrain today was beneficial again. RTC in 2 weeks for repeat OMT. Piriformis syndrome of both sides Somatic dysfunction of upper extremity Chronic arthritic pain of both rotator cuff regions complicated by supraspinatus tear on right shoulder. OMT was performed today on both shoulders with the patient benefit. Return to care in 2 weeks for repeat OMT Somatic dysfunction of thoracic region Structural dysfunction and TART changes likely associated with shoulder injury compensation. OMT performed today for symptomatic control and she will return to care in our office in 2 weeks for additional OMT. Somatic dysfunction of lower extremity Chronic piriformis syndrome causing radiating pain down both legs. Counterstrain and myofascial release was performed on both piriformis muscles and patient had good relief with this treatment. She will return to care in 2 weeks for repeat treatment. Rotator cuff tear arthropathy of right shoulder MRI finding of supraspinatus rupture with tendon retraction discussed with patient today and she expresses understanding. She understands she will be referred to orthopedic surgery for surgical repair. OMT performed today for symptomatic control and she will return to care in our office in 2 weeks for additional OMT. In the meantime she understands she can continue alternating ibuprofen and acetaminophen for pain control. Relevant Orders Ambulatory referral to Orthopedic Surgery Somatic dysfunction of lumbar region Structural dysfunction and TART changes likely associated with shoulder injury compensation. OMT performed today for symptomatic control and she will return to care in our office in 2 weeks for additional OMT. Somatic dysfunction of cervical region Structural dysfunction and TART changes likely associated with shoulder injury compensation. OMT performed today for symptomatic control and she will return to care in our office in 2 weeks for additional OMT. For any new medications prescribed today, patient was educated about indications for the medication, how to take the medication and potential side effects of the medications. Patient staffed and seen with Dr. Bustos who agrees with this plan. Return in about 2 weeks (around 05/29/2022) for OMT of shoulder, piriformis. documented in this [id number] History of Present illness Narrative* Zina Bustos DO - 05/15/2022 4:57 PM EDT I have personally seen and examined the patient independently of the resident physician. I have reviewed the history, physical, diagnosis and care plan with the resident physician, Yomi Ivey DO. I confirm the assessment and treatment plan: BP 123/77 Pulse 75 Temp 97.3 F (36.3 C) Wt 67.6 kg (149 lb) LMP 03/24/2015 SpO2 95% BMI29.10 kg/m Very pleasant 56 y.o. female. Heart RRR. Lungs CTAB. Diagnoses and all orders for this visit: Chronic pain of both shoulders Somatic dysfunction of upper extremity Somatic dysfunction of lower extremity Rotator cuff tear arthropathy of right shoulder - Ambulatory referral to Orthopedic Surgery; Future Somatic dysfunction of lumbar region Piriformis syndrome of both sides Somatic dysfunction of thoracic region Somatic dysfunction of cervical region Right rotator cuff full thickness tear: Noted on MRI. I agree with referral to orthopedics to discuss surgical options. Left shoulder pain: reports improvement with OMT for about 2 days prior. She is working which exacerbates her symptoms. Uses OTC Advil and tylenol. I agree with the OMT provider. I was present for the OMT provided. Piriformis syndrome: I agree with the OMT provided today. I agree with the stretches provided. * Yomi Ivey DO - 05/15/2022 4:20 PM EDT Subjective Patient ID: Zofia Sweeney Chief Complaint Patient presents with Shoulder Pain Right shoulder pain Follow up 1 week for low back and shoulder pain after OMT benefitted her symptoms and to discuss MRI results. MRI was obtained 3 days ago for shoulders. SHOULDER PAIN Patient says that she injured her right shoulder on the job about January or December of this year. She says she was reaching for an object overhead and felt something give way in her right shoulder. She presents today after getting her MRI. Both arms and pain worst at night - no new change in pain or weakness. Chronic issue since injury in december, injury on right side. Left side also hurts but sensation is different, patient attributes to arthritis. MRI 05/12 findings Results given today. Notes improvement with OMT which lasted for 2 days. 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 LEG PAIN Both legs painful this month. Had recently been getting worse and improved after OMT last week for 3 days. Pain has shot all the way down to her ankles (on left). Usually pain stops at knees. Denies weakness/ numbness/tingling Still taking Advil liquid gels 3 (200 mg) and alternating acetaminophen and ibuprofen, which controls her pain while not working. Denies long-term steroid use, IVDA, change in bowel or bladder habits, loss of bowel or bladder control, saddle anesthesia, unexplained weight loss, fever, night sweats The following portions of the patient's history were reviewed and updated as appropriate: allergies, current medications, past family history, past medical history, past social history, past surgicalhistory and problem list. Patient's Medications New Prescriptions No medications on file Previous Medications ACETAMINOPHEN (TYLENOL) 325 MG TABLET Take 650 mg by mouth every 6 (six) hours as needed for pain . ALBUTEROL 90 MCG/ACTUATION INHALER Inhale 2 (two) puffs every 4 to 6 hours as needed for wheezing or shortness of breath . BUPRENORPHINE-NALOXONE (SUBOXONE) 8-[address] 1 tablet under the tongue 2 (two) times a day . BUPROPION (WELLBUTRIN XL) 150 MG 24 HR TABLET Take 1 (one) tablet (150 mg total) by mouth daily . CYCLOBENZAPRINE (FLEXERIL) 10 MG TABLET Take 1 (one) tablet (10 mg total) by mouth 3 (three) times a day as needed for muscle spasms . DOCUSATE SODIUM (COLACE) 100 MG CAPSULE Take 1 capsule by mouth once as needed . GABAPENTIN (NEURONTIN) 300 MG CAPSULE Take 2 (two) capsules (600 mg total) by mouth 3 (three) timesa day . MELOXICAM (MOBIC) 15 MG TABLET Take 1 (one) tablet (15 mg total) by mouth daily . MULTIVITAMIN (THERAGRAN) PER TABLET Take 1 tablet by mouth daily . OXYBUTYNIN (DITROPAN-XL) 10 MG 24 HR TABLET Take 10 mg by mouth daily . POLYETHYLENE GLYCOL (GLYCOLAX) 17 GRAM/DOSE POWDER Take 17 g by mouth daily . Modified Medications No medications on file Discontinued Medications No medications on file Review of Systems Constitutional: Negative for chills, diaphoresis, fever and unexpected weight change. HENT: Positive for dental problem (jaw locks up when she wakes up for last few months, has not had chance to see dentist yet). Negative for nosebleeds, postnasal drip, rhinorrhea, sore throat and trouble swallowing. Eyes: Negative for pain, discharge, redness and itching. Respiratory: Negative for cough, choking, chest tightness and shortness of breath. Cardiovascular: Negative for chest pain, palpitations and leg swelling. Gastrointestinal: Positive for constipation (sometimes. not new, attributes to her diet). Negative for abdominal pain, diarrhea, nausea and vomiting. Endocrine: Negative for cold intolerance, heat intolerance and polyuria. Genitourinary: Negative for difficulty urinating, dyspareunia and dysuria. Musculoskeletal: Positive for arthralgias and gait problem (leg pain.). Negative for joint swelling. Skin: Negative for rash and wound. Neurological: Negative for dizziness, light-headedness and numbness. Hematological: Does not bruise/bleed easily. Psychiatric/Behavioral: Positive for sleep disturbance (pain with shoulders). Negative for dysphoric mood and hallucinations. The patient is not nervous/anxious (well controlled with medications). Objective BP 123/77 Pulse 75 Temp 97.3 F (36.3 C) Wt 67.6 kg (149 lb) LMP 03/24/2015 SpO2 95% BMI29.10 kg/m MRI 05/12/22 : There is significant motion artifact which degrades quality. There is a [id number] full-thickness rupture of the supraspinatus tendon with tendon retraction measuring 2.7 cm from the greater tuberosity. See image 11, coronal T2 fat sat sequence. Prominent bursal fluid noted. No muscle atrophy at this time. Mild AC joint arthropathy. No significant glenohumeral joint arthrosis. No evidenceof full-thickness biceps tendon tear. Mild biceps tendon sheath fluid seen. No fracture. Physical Exam Constitutional: General: She is not in acute distress. Appearance: Normal appearance. She is not ill-appearing, toxic-appearing or diaphoretic. HENT: Head: Normocephalic and atraumatic. Eyes: General: No scleral icterus. Right eye: No discharge. Left eye: No discharge. Conjunctiva/sclera: Conjunctivae normal. Cardiovascular: Rate and Rhythm: Normal rate and regular rhythm. Pulmonary: Effort: Pulmonary effort is normal. No respiratory distress. Breath sounds: Normal breath sounds. Musculoskeletal: General: Tenderness and signs of injury (right shoulder) present. No swelling or deformity. Right lower leg: No edema. Left lower leg: No edema. Skin: General: Skin is warm and dry. Coloration: Skin is not jaundiced. Neurological: General: No focal deficit present. Mental Status: She is alert. Gait: Gait abnormal. Psychiatric: Mood and Affect: Mood normal. Behavior: Behavior normal. Thought Content: Thought content normal. Osteopathic: Osteopathic Medical Exam: Head: Treatment Comments: Performed vault hold to help patient relax cervical paraspinals. Patient reports improvement. TAR T changes show decreased ropiness after treatment. Cervical/Neck: TART Exam: TART exam positive for tissue texture and tenderness. Thoracic: TART Exam: TART exam positive for tissue texture and tenderness. Treatment Comments: Performed trap release due to obvious tenderness and tart changes associated with her work and stress of supraspinatus tear on right shoulder. Patient reports significant relaxation and benefit with treatment. TA RT improvements with regards to decreased tenderness and improved tissue texture Lumbar: Osteopathic Lumbar Exam: TART Exam: TART exam positive for tissue texture and tenderness. Treatment Comments: Bilateral extension with extreme ropiness and tightness in general lumbar region associated with her work. Myofascial release performed bilaterally with great patient response andimproved range of motion with decreased ropiness and loosening of fascia detectable. Lower Extremity: Treatment Comments: Bilateral tender points associated with anatomical piriformis. Counterstrain performed bilaterally with patient reported improvement and palpable release of tight piriformis bilaterally. Upper Extremity: General Testing: Altered scapular kinetics: Right: Positive Shoulder: Hawkin's Test: Right: Positive Treatment Comments: Bilateral shoulder tenderness and decreased range of motion consistent with MRIresult of right sided suprascapular rupture and patient reported left side arthritic changes. Muscle energy and counterstrain performed primarily on anterior side of rotator cuff with biceps muscle and pectoralis minor involvement. Patient reports improvement and palpable changes detectable with regards to decreased tissue texture tightness and improved local pulse and fluid motion. Assessment/Plan: Problem List Chronic pain of both shoulders - Primary MRI obtained on 05/12 showed tear of the right supraspinatus. Result was shared and discussed with patient and she expresses understanding of the need for surgical repair. OMT continues to be helpful and desired by patient and muscle energy and counterstrain today was beneficial again. RTC in 2 weeks for repeat OMT. Piriformis syndrome of both sides Somatic dysfunction of upper extremity Chronic arthritic pain of both rotator cuff regions complicated by supraspinatus tear on right shoulder. OMT was performed today on both shoulders with the patient benefit. Return to care in 2 weeks for repeat OMT Somatic dysfunction of thoracic region Structural dysfunction and TART changes likely associated with shoulder injury compensation. OMT performed today for symptomatic control and she will return to care in our office in 2 weeks for additional OMT. Somatic dysfunction of lower extremity Chronic piriformis syndrome causing radiating pain down both legs. Counterstrain and myofascial release was performed on both piriformis muscles and patient had good relief with this treatment. She will return to care in 2 weeks for repeat treatment. Rotator cuff tear arthropathy of right shoulder MRI finding of supraspinatus rupture with tendon retraction discussed with patient today and she expresses understanding. She understands she will be referred to orthopedic surgery for surgical repair. OMT performed today for symptomatic control and she will return to care in our office in 2 weeks for additional OMT. In the meantime she understands she can continue alternating ibuprofen and acetaminophen for pain control. Relevant Orders Ambulatory referral to Orthopedic Surgery Somatic dysfunction of lumbar region Structural dysfunction and TART changes likely associated with shoulder injury compensation. OMT performed today for symptomatic control and she will return to care in our office in 2 weeks for additional OMT. Somatic dysfunction of cervical region Structural dysfunction and TART changes likely associated with shoulder injury compensation. OMT performed today for symptomatic control and she will return to care in our office in 2 weeks for additional OMT. For any new medications prescribed today, patient was educated about indications for the medication, how to take the medication and potential side effects of the medications. Patient staffed and seen with Dr. Bustos who agrees with this plan. Return in about 2 weeks (around 05/29/2022) for OMT of shoulder, piriformis. documented in this [id number] Evaluation + Plan note* Assessment & Plan Note - Yomi Ivey DO - 05/15/2022 4:38 PM EDTAssociated Problem(s): Chronic pain of both shoulders MRI obtained on 05/12 showed tear of the right supraspinatus. Result was shared and discussed with patient and she expresses understanding of the need for surgical repair. OMT continues to be helpful and desired by patient and muscle energy and counterstrain today was beneficial again. RTC in 2 weeks for repeat OMT. [id number] Note* Addendum Note - Mateusz Linares DO - 05/11/2022 10:01 AM EDTAddended by: MATEUSZ LINARES on: 05/11/2022 10:01 AM Modules accepted: Level of Service [id number] Note* Addendum Note - Mateusz Linares DO - 05/11/2022 10:01 AM EDTAddended by: MATEUSZ LINARES on: 05/11/2022 10:01 AM Modules accepted: Level of Service [id number] Miscellaneous Notes* Addendum Note - Mateusz Linares DO - 05/11/2022 10:01 AM EDTAddended by: MATEUSZ LINARES on: 05/11/2022 10:01 AM Modules accepted: Level of Service * Assessment & Plan Note - Mateusz Linares DO - 05/06/2022 11:09 AM EDTAssociated Problem(s): Somatic dysfunction of thoracic region Patient eager for OMT and notes how beneficial it is for her Performed various techniques including counterstrain, myofascial release and muscle energy of the region listed here and applies to below regions also Tolerated procedure well with no side effects Noted improvement in ROM as well as decreased tenderness on recheck Will have patient f/u for OMT on 05/15 after MRI completed * Assessment & Plan Note - Mateusz Linares DO - 05/06/2022 11:06 AM EDTAssociated Problem(s): Piriformis syndrome of both sides Noted improvement in her sciatic pain after Rx w/ OMT for piriformis counterstrain At this time, most likely piriformis pain vs true sciatica Discussed trialing stretches at home or beginner friendly yoga stretches to help relax the muscles PT referral placed for further strengthening * Assessment & Plan Note - Mateusz Linares DO - 05/06/2022 11:03 AM EDTAssociated Problem(s): Chronic pain of both shoulders MRI scheduled for 05/12 At this time, stable with no new pain or worsening of pain Notes relief with OMT that lasts for about a week Notes work tends to exacerbate sxs Discussed continuing with OMT, as well as referral to PT Patient interested in evaluation for disability - discussed calling social security office regarding further information Can also potentially consider steroid shot to R shoulder in a future visit, pending MRI results documented in this [id number] Evaluation + Plan note* Assessment & Plan Note - Mateusz Linares DO - 05/06/2022 11:09 AM EDTAssociated Problem(s): Somatic dysfunction of thoracic region Patient eager for OMT and notes how beneficial it is for her Performed various techniques including counterstrain, myofascial release and muscle energy of the region listed here and applies to below regions also Tolerated procedure well with no side effects Noted improvement in ROM as well as decreased tenderness on recheck Will have patient f/u for OMT on 05/15 after MRI completed [id number] Miscellaneous Notes* Assessment & Plan Note - Mateusz Linares DO - 05/06/2022 11:09 AM EDTAssociated Problem(s): Somatic dysfunction of thoracic region Patient eager for OMT and notes how beneficial it is for her Performed various techniques including counterstrain, myofascial release and muscle energy of the region listed here and applies to below regions also Tolerated procedure well with no side effects Noted improvement in ROM as well as decreased tenderness on recheck Will have patient f/u for OMT on 05/15 after MRI completed * Assessment & Plan Note - Mateusz Linares DO - 05/06/2022 11:06 AM EDTAssociated Problem(s): Piriformis syndrome of both sides Noted improvement in her sciatic pain after Rx w/ OMT for piriformis counterstrain At this time, most likely piriformis pain vs true sciatica Discussed trialing stretches at home or beginner friendly yoga stretches to help relax the muscles PT referral placed for further strengthening * Assessment & Plan Note - Mateusz Linares DO - 05/06/2022 11:03 AM EDTAssociated Problem(s): Chronic pain of both shoulders MRI scheduled for 05/12 At this time, stable with no new pain or worsening of pain Notes relief with OMT that lasts for about a week Notes work tends to exacerbate sxs Discussed continuing with OMT, as well as referral to PT Patient interested in evaluation for disability - discussed calling social security office regarding further information Can also potentially consider steroid shot to R shoulder in a future visit, pending MRI results documented in this [id number] Evaluation + Plan note* Assessment & Plan Note - Mateusz Linares DO - 05/06/2022 11:06 AM EDTAssociated Problem(s): Piriformis syndrome of both sides Noted improvement in her sciatic pain after Rx w/ OMT for piriformis counterstrain At this time, most likely piriformis pain vs true sciatica Discussed trialing stretches at home or beginner friendly yoga stretches to help relax the muscles PT referral placed for further strengthening [id number] Evaluation + Plan note* Assessment & Plan Note - Mateusz Linares DO - 05/06/2022 11:03 AM EDTAssociated Problem(s): Chronic pain of both shoulders MRI scheduled for 05/12 At this time, stable with no new pain or worsening of pain Notes relief with OMT that lasts for about a week Notes work tends to exacerbate sxs Discussed continuing with OMT, as well as referral to PT Patient interested in evaluation for disability - discussed calling social security office regarding further information Can also potentially consider steroid shot to R shoulder in a future visit, pending MRI results [id number] History of Present illness Narrative* Vikas Bermudez DO - 05/05/2022 10:14 AM EDT I have personally seen and examined the patient independently of the resident physician. I have reviewed the history, physical, diagnosis and care plan with the resident physician, Mateusz Linares DO.I confirm the assessment and treatment plan: There are no diagnoses linked to this encounter. PHYSICAL EXAMINATION: General: awake alert and oriented. No acute distress. HENT: Normocephalic, atraumatic, EOMI. NEURO: CN 2-12 Grossly intact. No focal deficits noted. PSYCH: Mood and affect appropriate and congruent. No active SI or HI. No evidence of psychosis. Agree with resident plan to treat the somatic dysfunctions with OMT in office today which patient tolerated well with fair benefit in symptoms following it. Agree with resident plan to get patient set up with some physical therapy on an outpatient basis. *This is not a complete note, awaiting resident completion prior to attending sign off* * Mateusz Linares, DO - 05/05/2022 9:20 AM EDT Subjective Patient ID: shay Sweeney is a 56 y.o. female. Chief Complaint Patient presents with right shoulder pain Reports 4/10 pain and that she has had Tylenol this morning sciatic nerve Reports new onset of pain down the back of both legs and states that is is Sciatic pain HPI Follow up for low back and shoulder pain MRI ordered at last visit - scheduled Shoots/stabs/kline - R arm; pain worst at night - no new change in pain or weakness; it is chronic Notes improvement with OMT which lasts for about 1 week Both sciatic nerves acting up lately Couple weeks; getting worse No weakness/ numbness/tingling Takes Advil liquid gels 3 (200 mg) twice a day - 1200 mg total Otherwise, interested in pursuing disability due to chronic pain and limitations in performing her work Tolerating OMT - lasts a week or so Steroid injections in neck, knee, back 7 yrs ago - neck/back 5 years ago - knee The following portions of the patient's history were reviewed and updated as appropriate: allergies, current medications, past family history, past medical history, past social history, past surgicalhistory and problem list. Patient's Medications New Prescriptions No medications on file Previous Medications ACETAMINOPHEN (TYLENOL) 325 MG TABLET Take 650 mg by mouth every 6 (six) hours as needed for pain . ALBUTEROL 90 MCG/ACTUATION INHALER Inhale 2 (two) puffs every 4 to 6 hours as needed for wheezing or shortness of breath . BUPRENORPHINE-NALOXONE (SUBOXONE) 8-[address] 1 tablet under the tongue 2 (two) times a day . BUPROPION (WELLBUTRIN XL) 150 MG 24 HR TABLET Take 1 (one) tablet (150 mg total) by mouth daily . CYCLOBENZAPRINE (FLEXERIL) 10 MG TABLET Take 1 (one) tablet (10 mg total) by mouth 3 (three) times a day as needed for muscle spasms . DOCUSATE SODIUM (COLACE) 100 MG CAPSULE Take 1 capsule by mouth once as needed . GABAPENTIN (NEURONTIN) 300 MG CAPSULE Take 2 (two) capsules (600 mg total) by mouth 3 (three) timesa day . MELOXICAM (MOBIC) 15 MG TABLET Take 1 (one) tablet (15 mg total) by mouth daily . MULTIVITAMIN (THERAGRAN) PER TABLET Take 1 tablet by mouth daily . OXYBUTYNIN (DITROPAN-XL) 10 MG 24 HR TABLET Take 10 mg by mouth daily . POLYETHYLENE GLYCOL (GLYCOLAX) 17 GRAM/DOSE POWDER Take 17 g by mouth daily . Modified Medications No medications on file Discontinued Medications No medications on file Review of Systems Constitutional: Negative for activity change, fatigue and fever. HENT: Negative for congestion, ear pain, postnasal drip and sore throat. Eyes: Negative for pain and discharge. Respiratory: Negative for chest tightness, shortness of breath and wheezing. Cardiovascular: Negative for chest pain and palpitations. Gastrointestinal: Negative for abdominal pain, blood in stool, constipation, diarrhea, nausea and vomiting. Genitourinary: Negative for difficulty urinating, dysuria, frequency, hematuria and urgency. Musculoskeletal: Positive for arthralgias, back pain and myalgias. Negative for joint swelling. Skin: Negative for rash. Allergic/Immunologic: Negative for environmental allergies, food allergies and immunocompromised state. Neurological: Negative for dizziness, weakness, numbness and headaches. Psychiatric/Behavioral: Negative for dysphoric mood and suicidal ideas. The patient is not nervous/anxious. Objective BP 118/80 Pulse 66 Temp 98.2 F (36.8 C) (Temporal) Resp 16 Wt 67.3 kg (148 lb 6.4 oz) LMP03/24/2015 SpO2 95% BMI 28.04 kg/m Physical Exam Vitals and nursing note reviewed. Constitutional: General: She is not in acute distress. Appearance: Normal appearance. Cardiovascular: Rate and Rhythm: Normal rate and regular rhythm. Pulses: Normal pulses. Heart sounds: Normal heart sounds. Pulmonary: Effort: Pulmonary effort is normal. No respiratory distress. Breath sounds: Normal breath sounds. Abdominal: General: Bowel sounds are normal. There is no distension. Palpations: Abdomen is soft. Tenderness: There is no abdominal tenderness. There is no right CVA tenderness, left CVA tenderness, guarding or rebound. Musculoskeletal: General: Tenderness present. Right lower leg: No edema. Left lower leg: No edema. Neurological: Mental Status: She is alert and oriented to person, place, and time. L shoulder elevated compared to R B/l shoulder restriction in IR, flexion, abduction, restriction in circumduction (R>L); restriction in IR (L>R) B/l scapular restriction in elevation/depression and medial rotation T3-5 N RLSR Piriformis counterstrain b/l Assessment/Plan: Diagnoses and all orders for this visit: Chronic pain of both shoulders Piriformis syndrome of both sides Somatic dysfunction of upper extremity Somatic dysfunction of thoracic region Somatic dysfunction of lower extremity Problem List Chronic pain of both shoulders - Primary MRI scheduled for 05/12 At this time, stable with no new pain or worsening of pain Notes relief with OMT that lasts for about a week Notes work tends to exacerbate sxs Discussed continuing with OMT, as well as referral to PT Patient interested in evaluation for disability - discussed calling social security office regarding further information Can also potentially consider steroid shot to R shoulder in a future visit, pending MRI results Piriformis syndrome of both sides Noted improvement in her sciatic pain after Rx w/ OMT for piriformis counterstrain At this time, most likely piriformis pain vs true sciatica Discussed trialing stretches at home or beginner friendly yoga stretches to help relax the muscles PT referral placed for further strengthening Somatic dysfunction of thoracic region Patient eager for OMT and notes how beneficial it is for her Performed various techniques including counterstrain, myofascial release and muscle energy of the region listed here and applies to below regions also Tolerated procedure well with no side effects Noted improvement in ROM as well as decreased tenderness on recheck Will have patient f/u for OMT on 05/15 after MRI completed Somatic dysfunction of upper extremity Somatic dysfunction of lower extremity For any new medications prescribed today, patient was educated about indications for the medication, how to take the medication and potential side effects of the medications. Patient staffed and seen with Dr. Bermudez who agrees with this plan. Return in about 10 days (around 05/15/2022) for omt after completing MRI - omt shoulders & LE/piriformis/pelvis. documented in this [id number] History of Present illness Narrative* Vikas Bermudez DO - 05/05/2022 10:14 AM EDT I have personally seen and examined the patient independently of the resident physician. I have reviewed the history, physical, diagnosis and care plan with the resident physician, Mateusz Linares DO.I confirm the assessment and treatment plan: Diagnoses and all orders for this visit: Chronic pain of both shoulders - Ambulatory Ref to [facility] (PT/OT/ST); Future Piriformis syndrome of both sides - Ambulatory Ref to [facility] (PT/OT/ST); Future Somatic dysfunction of upper extremity Somatic dysfunction of thoracic region Somatic dysfunction of lower extremity PHYSICAL EXAMINATION: General: awake alert and oriented. No acute distress. HENT: Normocephalic, atraumatic, EOMI. NEURO: CN 2-12 Grossly intact. No focal deficits noted. PSYCH: Mood and affect appropriate and congruent. No active SI or HI. No evidence of psychosis. Agree with resident plan to treat the somatic dysfunctions with OMT in office today which patient tolerated well with fair benefit in symptoms following it. Agree with resident plan to get patient set up with some physical therapy on an outpatient basis. * Mateusz Linares DO - 05/05/2022 9:20 AM EDT Subjective Patient ID: shay Sweeney is a 56 y.o. female. Chief Complaint Patient presents with right shoulder pain Reports 4/10 pain and that she has had Tylenol this morning sciatic nerve Reports new onset of pain down the back of both legs and states that is is Sciatic pain HPI Follow up for low back and shoulder pain MRI ordered at last visit - scheduled Shoots/stabs/kline - R arm; pain worst at night - no new change in pain or weakness; it is chronic Notes improvement with OMT which lasts for about 1 week Both sciatic nerves acting up lately Couple weeks; getting worse No weakness/ numbness/tingling Takes Advil liquid gels 3 (200 mg) twice a day - 1200 mg total Otherwise, interested in pursuing disability due to chronic pain and limitations in performing her work Tolerating OMT - lasts a week or so Steroid injections in neck, knee, back 7 yrs ago - neck/back 5 years ago - knee The following portions of the patient's history were reviewed and updated as appropriate: allergies, current medications, past family history, past medical history, past social history, past surgicalhistory and problem list. Patient's Medications New Prescriptions No medications on file Previous Medications ACETAMINOPHEN (TYLENOL) 325 MG TABLET Take 650 mg by mouth every 6 (six) hours as needed for pain . ALBUTEROL 90 MCG/ACTUATION INHALER Inhale 2 (two) puffs every 4 to 6 hours as needed for wheezing or shortness of breath . BUPRENORPHINE-NALOXONE (SUBOXONE) 8-[address] 1 tablet under the tongue 2 (two) times a day . BUPROPION (WELLBUTRIN XL) 150 MG 24 HR TABLET Take 1 (one) tablet (150 mg total) by mouth daily . CYCLOBENZAPRINE (FLEXERIL) 10 MG TABLET Take 1 (one) tablet (10 mg total) by mouth 3 (three) times a day as needed for muscle spasms . DOCUSATE SODIUM (COLACE) 100 MG CAPSULE Take 1 capsule by mouth once as needed . GABAPENTIN (NEURONTIN) 300 MG CAPSULE Take 2 (two) capsules (600 mg total) by mouth 3 (three) timesa day . MELOXICAM (MOBIC) 15 MG TABLET Take 1 (one) tablet (15 mg total) by mouth daily . MULTIVITAMIN (THERAGRAN) PER TABLET Take 1 tablet by mouth daily . OXYBUTYNIN (DITROPAN-XL) 10 MG 24 HR TABLET Take 10 mg by mouth daily . POLYETHYLENE GLYCOL (GLYCOLAX) 17 GRAM/DOSE POWDER Take 17 g by mouth daily . Modified Medications No medications on file Discontinued Medications No medications on file Review of Systems Constitutional: Negative for activity change, fatigue and fever. HENT: Negative for congestion, ear pain, postnasal drip and sore throat. Eyes: Negative for pain and discharge. Respiratory: Negative for chest tightness, shortness of breath and wheezing. Cardiovascular: Negative for chest pain and palpitations. Gastrointestinal: Negative for abdominal pain, blood in stool, constipation, diarrhea, nausea and vomiting. Genitourinary: Negative for difficulty urinating, dysuria, frequency, hematuria and urgency. Musculoskeletal: Positive for arthralgias, back pain and myalgias. Negative for joint swelling. Skin: Negative for rash. Allergic/Immunologic: Negative for environmental allergies, food allergies and immunocompromised state. Neurological: Negative for dizziness, weakness, numbness and headaches. Psychiatric/Behavioral: Negative for dysphoric mood and suicidal ideas. The patient is not nervous/anxious. Objective BP 118/80 Pulse 66 Temp 98.2 F (36.8 C) (Temporal) Resp 16 Wt 67.3 kg (148 lb 6.4 oz) LMP03/24/2015 SpO2 95% BMI 28.04 kg/m Physical Exam Vitals and nursing note reviewed. Constitutional: General: She is not in acute distress. Appearance: Normal appearance. Cardiovascular: Rate and Rhythm: Normal rate and regular rhythm. Pulses: Normal pulses. Heart sounds: Normal heart sounds. Pulmonary: Effort: Pulmonary effort is normal. No respiratory distress. Breath sounds: Normal breath sounds. Abdominal: General: Bowel sounds are normal. There is no distension. Palpations: Abdomen is soft. Tenderness: There is no abdominal tenderness. There is no right CVA tenderness, left CVA tenderness, guarding or rebound. Musculoskeletal: General: Tenderness present. Right lower leg: No edema. Left lower leg: No edema. Neurological: Mental Status: She is alert and oriented to person, place, and time. L shoulder elevated compared to R B/l shoulder restriction in IR, flexion, abduction, restriction in circumduction (R>L); restriction in IR (L>R) B/l scapular restriction in elevation/depression and medial rotation T3-5 N RLSR Piriformis counterstrain b/l Assessment/Plan: Diagnoses and all orders for this visit: Chronic pain of both shoulders Piriformis syndrome of both sides Somatic dysfunction of upper extremity Somatic dysfunction of thoracic region Somatic dysfunction of lower extremity Problem List Chronic pain of both shoulders - Primary MRI scheduled for 05/12 At this time, stable with no new pain or worsening of pain Notes relief with OMT that lasts for about a week Notes work tends to exacerbate sxs Discussed continuing with OMT, as well as referral to PT Patient interested in evaluation for disability - discussed calling [employer] security office regarding further information Can also potentially consider steroid shot to R shoulder in a future visit, pending MRI results Piriformis syndrome of both sides Noted improvement in her sciatic pain after Rx w/ OMT for piriformis counterstrain At this time, most likely piriformis pain vs true sciatica Discussed trialing stretches at home or beginner friendly yoga stretches to help relax the muscles PT referral placed for further strengthening Somatic dysfunction of thoracic region Patient eager for OMT and notes how beneficial it is for her Performed various techniques including counterstrain, myofascial release and muscle energy of the region listed here and applies to below regions also Tolerated procedure well with no side effects Noted improvement in ROM as well as decreased tenderness on recheck Will have patient f/u for OMT on 05/15 after MRI completed Somatic dysfunction of upper extremity Somatic dysfunction of lower extremity For any new medications prescribed today, patient was educated about indications for the medication, how to take the medication and potential side effects of the medications. Patient staffed and seen with Dr. Bermudez who agrees with this plan. Return in about 10 days (around 05/15/2022) for omt after completing MRI - omt shoulders & LE/piriformis/pelvis. documented in this [id number] History of Present illness Narrative* Vikas Bermudez DO - 05/05/2022 10:14 AM EDT I have personally seen and examined the patient independently of the resident physician. I have reviewed the history, physical, diagnosis and care plan with the resident physician, Mateusz Linares DO.I confirm the assessment and treatment plan: Diagnoses and all orders for this visit: Chronic pain of both shoulders - Ambulatory Ref to [facility] (PT/OT/ST); Future Piriformis syndrome of both sides - Ambulatory Ref to [facility] (PT/OT/ST); Future Somatic dysfunction of upper extremity Somatic dysfunction of thoracic region Somatic dysfunction of lower extremity PHYSICAL EXAMINATION: General: awake alert and oriented. No acute distress. HENT: Normocephalic, atraumatic, EOMI. NEURO: CN 2-12 Grossly intact. No focal deficits noted. PSYCH: Mood and affect appropriate and congruent. No active SI or HI. No evidence of psychosis. Agree with resident plan to treat the somatic dysfunctions with OMT in office today which patient tolerated well with fair benefit in symptoms following it. Agree with resident plan to get patient set up with some physical therapy on an outpatient basis. * Mateusz Linares DO - 05/05/2022 9:20 AM EDT Subjective Patient ID: is Leysa A Patel is a 56 y.o. female. Chief Complaint Patient presents with right shoulder pain Reports 4/10 pain and that she has had Tylenol this morning sciatic nerve Reports new onset of pain down the back of both legs and states that is is Sciatic pain HPI Follow up for low back and shoulder pain MRI ordered at last visit - scheduled Shoots/stabs/kline - R arm; pain worst at night - no new change in pain or weakness; it is chronic Notes improvement with OMT which lasts for about 1 week Both sciatic nerves acting up lately Couple weeks; getting worse No weakness/ numbness/tingling Takes Advil liquid gels 3 (200 mg) twice a day - 1200 mg total Otherwise, interested in pursuing disability due to chronic pain and limitations in performing her work Tolerating OMT - lasts a week or so Steroid injections in neck, knee, back 7 yrs ago - neck/back 5 years ago - knee The following portions of the patient's history were reviewed and updated as appropriate: allergies, current medications, past family history, past medical history, past social history, past surgicalhistory and problem list. Patient's Medications New Prescriptions No medications on file Previous Medications ACETAMINOPHEN (TYLENOL) 325 MG TABLET Take 650 mg by mouth every 6 (six) hours as needed for pain . ALBUTEROL 90 MCG/ACTUATION INHALER Inhale 2 (two) puffs every 4 to 6 hours as needed for wheezing or shortness of breath . BUPRENORPHINE-NALOXONE (SUBOXONE) 8-[address] 1 tablet under the tongue 2 (two) times a day . BUPROPION (WELLBUTRIN XL) 150 MG 24 HR TABLET Take 1 (one) tablet (150 mg total) by mouth daily . CYCLOBENZAPRINE (FLEXERIL) 10 MG TABLET Take 1 (one) tablet (10 mg total) by mouth 3 (three) times a day as needed for muscle spasms . DOCUSATE SODIUM (COLACE) 100 MG CAPSULE Take 1 capsule by mouth once as needed . GABAPENTIN (NEURONTIN) 300 MG CAPSULE Take 2 (two) capsules (600 mg total) by mouth 3 (three) timesa day . MELOXICAM (MOBIC) 15 MG TABLET Take 1 (one) tablet (15 mg total) by mouth daily . MULTIVITAMIN (THERAGRAN) PER TABLET Take 1 tablet by mouth daily . OXYBUTYNIN (DITROPAN-XL) 10 MG 24 HR TABLET Take 10 mg by mouth daily . POLYETHYLENE GLYCOL (GLYCOLAX) 17 GRAM/DOSE POWDER Take 17 g by mouth daily . Modified Medications No medications on file Discontinued Medications No medications on file Review of Systems Constitutional: Negative for activity change, fatigue and fever. HENT: Negative for congestion, ear pain, postnasal drip and sore throat. Eyes: Negative for pain and discharge. Respiratory: Negative for chest tightness, shortness of breath and wheezing. Cardiovascular: Negative for chest pain and palpitations. Gastrointestinal: Negative for abdominal pain, blood in stool, constipation, diarrhea, nausea and vomiting. Genitourinary: Negative for difficulty urinating, dysuria, frequency, hematuria and urgency. Musculoskeletal: Positive for arthralgias, back pain and myalgias. Negative for joint swelling. Skin: Negative for rash. Allergic/Immunologic: Negative for environmental allergies, food allergies and immunocompromised state. Neurological: Negative for dizziness, weakness, numbness and headaches. Psychiatric/Behavioral: Negative for dysphoric mood and suicidal ideas. The patient is not nervous/anxious. Objective BP 118/80 Pulse 66 Temp 98.2 F (36.8 C) (Temporal) Resp 16 Wt 67.3 kg (148 lb 6.4 oz) LMP03/24/2015 SpO2 95% BMI 28.04 kg/m Physical Exam Vitals and nursing note reviewed. Constitutional: General: She is not in acute distress. Appearance: Normal appearance. Cardiovascular: Rate and Rhythm: Normal rate and regular rhythm. Pulses: Normal pulses. Heart sounds: Normal heart sounds. Pulmonary: Effort: Pulmonary effort is normal. No respiratory distress. Breath sounds: Normal breath sounds. Abdominal: General: Bowel sounds are normal. There is no distension. Palpations: Abdomen is soft. Tenderness: There is no abdominal tenderness. There is no right CVA tenderness, left CVA tenderness, guarding or rebound. Musculoskeletal: General: Tenderness present. Right lower leg: No edema. Left lower leg: No edema. Neurological: Mental Status: She is alert and oriented to person, place, and time. L shoulder elevated compared to R B/l shoulder restriction in IR, flexion, abduction, restriction in circumduction (R>L); restriction in IR (L>R) B/l scapular restriction in elevation/depression and medial rotation T3-5 N RLSR Piriformis counterstrain b/l Assessment/Plan: Diagnoses and all orders for this visit: Chronic pain of both shoulders Piriformis syndrome of both sides Somatic dysfunction of upper extremity Somatic dysfunction of thoracic region Somatic dysfunction of lower extremity Problem List Chronic pain of both shoulders - Primary MRI scheduled for 05/12 At this time, stable with no new pain or worsening of pain Notes relief with OMT that lasts for about a week Notes work tends to exacerbate sxs Discussed continuing with OMT, as well as referral to PT Patient interested in evaluation for disability - discussed calling social security office regarding further information Can also potentially consider steroid shot to R shoulder in a future visit, pending MRI results Piriformis syndrome of both sides Noted improvement in her sciatic pain after Rx w/ OMT for piriformis counterstrain At this time, most likely piriformis pain vs true sciatica Discussed trialing stretches at home or beginner friendly yoga stretches to help relax the muscles PT referral placed for further strengthening Somatic dysfunction of thoracic region Patient eager for OMT and notes how beneficial it is for her Performed various techniques including counterstrain, myofascial release and muscle energy of the region listed here and applies to below regions also Tolerated procedure well with no side effects Noted improvement in ROM as well as decreased tenderness on recheck Will have patient f/u for OMT on 05/15 after MRI completed Somatic dysfunction of upper extremity Somatic dysfunction of lower extremity For any new medications prescribed today, patient was educated about indications for the medication, how to take the medication and potential side effects of the medications. Patient staffed and seen with Dr. Bermudez who agrees with this plan. Return in about 10 days (around 05/15/2022) for omt after completing MRI - omt shoulders & LE/piriformis/pelvis. documented in this [id number] History of Present illness Narrative* Vikas Bermudez DO - 05/05/2022 10:14 AM EDT I have personally seen and examined the patient independently of the resident physician. I have reviewed the history, physical, diagnosis and care plan with the resident physician, Mateusz Linares DO.I confirm the assessment and treatment plan: Diagnoses and all orders for this visit: Chronic pain of both shoulders - Ambulatory Ref to [facility] (PT/OT/ST); Future Piriformis syndrome of both sides - Ambulatory Ref to [facility] (PT/OT/ST); Future Somatic dysfunction of upper extremity Somatic dysfunction of thoracic region Somatic dysfunction of lower extremity PHYSICAL EXAMINATION: General: awake alert and oriented. No acute distress. HENT: Normocephalic, atraumatic, EOMI. NEURO: CN 2-12 Grossly intact. No focal deficits noted. PSYCH: Mood and affect appropriate and congruent. No active SI or HI. No evidence of psychosis. Agree with resident plan to treat the somatic dysfunctions with OMT in office today which patient tolerated well with fair benefit in symptoms following it. Agree with resident plan to get patient set up with some physical therapy on an outpatient basis. * Mateusz Linares DO - 05/05/2022 9:20 AM EDT Subjective Patient ID: shay Sweeney is a 56 y.o. female. Chief Complaint Patient presents with right shoulder pain Reports 4/10 pain and that she has had Tylenol this morning sciatic nerve Reports new onset of pain down the back of both legs and states that is is Sciatic pain HPI Follow up for low back and shoulder pain MRI ordered at last visit - scheduled Shoots/stabs/kline - R arm; pain worst at night - no new change in pain or weakness; it is chronic Notes improvement with OMT which lasts for about 1 week Both sciatic nerves acting up lately Couple weeks; getting worse No weakness/ numbness/tingling Takes Advil liquid gels 3 (200 mg) twice a day - 1200 mg total Otherwise, interested in pursuing disability due to chronic pain and limitations in performing her work Tolerating OMT - lasts a week or so Steroid injections in neck, knee, back 7 yrs ago - neck/back 5 years ago - knee The following portions of the patient's history were reviewed and updated as appropriate: allergies, current medications, past family history, past medical history, past social history, past surgicalhistory and problem list. Patient's Medications New Prescriptions No medications on file Previous Medications ACETAMINOPHEN (TYLENOL) 325 MG TABLET Take 650 mg by mouth every 6 (six) hours as needed for pain . ALBUTEROL 90 MCG/ACTUATION INHALER Inhale 2 (two) puffs every 4 to 6 hours as needed for wheezing or shortness of breath . BUPRENORPHINE-NALOXONE (SUBOXONE) 8-[address] 1 tablet under the tongue 2 (two) times a day . BUPROPION (WELLBUTRIN XL) 150 MG 24 HR TABLET Take 1 (one) tablet (150 mg total) by mouth daily . CYCLOBENZAPRINE (FLEXERIL) 10 MG TABLET Take 1 (one) tablet (10 mg total) by mouth 3 (three) times a day as needed for muscle spasms . DOCUSATE SODIUM (COLACE) 100 MG CAPSULE Take 1 capsule by mouth once as needed . GABAPENTIN (NEURONTIN) 300 MG CAPSULE Take 2 (two) capsules (600 mg total) by mouth 3 (three) timesa day . MELOXICAM (MOBIC) 15 MG TABLET Take 1 (one) tablet (15 mg total) by mouth daily . MULTIVITAMIN (THERAGRAN) PER TABLET Take 1 tablet by mouth daily . OXYBUTYNIN (DITROPAN-XL) 10 MG 24 HR TABLET Take 10 mg by mouth daily . POLYETHYLENE GLYCOL (GLYCOLAX) 17 GRAM/DOSE POWDER Take 17 g by mouth daily . Modified Medications No medications on file Discontinued Medications No medications on file Review of Systems Constitutional: Negative for activity change, fatigue and fever. HENT: Negative for congestion, ear pain, postnasal drip and sore throat. Eyes: Negative for pain and discharge. Respiratory: Negative for chest tightness, shortness of breath and wheezing. Cardiovascular: Negative for chest pain and palpitations. Gastrointestinal: Negative for abdominal pain, blood in stool, constipation, diarrhea, nausea and vomiting. Genitourinary: Negative for difficulty urinating, dysuria, frequency, hematuria and urgency. Musculoskeletal: Positive for arthralgias, back pain and myalgias. Negative for joint swelling. Skin: Negative for rash. Allergic/Immunologic: Negative for environmental allergies, food allergies and immunocompromised state. Neurological: Negative for dizziness, weakness, numbness and headaches. Psychiatric/Behavioral: Negative for dysphoric mood and suicidal ideas. The patient is not nervous/anxious. Objective BP 118/80 Pulse 66 Temp 98.2 F (36.8 C) (Temporal) Resp 16 Wt 67.3 kg (148 lb 6.4 oz) LMP03/24/2015 SpO2 95% BMI 28.04 kg/m Physical Exam Vitals and nursing note reviewed. Constitutional: General: She is not in acute distress. Appearance: Normal appearance. Cardiovascular: Rate and Rhythm: Normal rate and regular rhythm. Pulses: Normal pulses. Heart sounds: Normal heart sounds. Pulmonary: Effort: Pulmonary effort is normal. No respiratory distress. Breath sounds: Normal breath sounds. Abdominal: General: Bowel sounds are normal. There is no distension. Palpations: Abdomen is soft. Tenderness: There is no abdominal tenderness. There is no right CVA tenderness, left CVA tenderness, guarding or rebound. Musculoskeletal: General: Tenderness present. Right lower leg: No edema. Left lower leg: No edema. Neurological: Mental Status: She is alert and oriented to person, place, and time. L shoulder elevated compared to R B/l shoulder restriction in IR, flexion, abduction, restriction in circumduction (R>L); restriction in IR (L>R) B/l scapular restriction in elevation/depression and medial rotation T3-5 N RLSR Piriformis counterstrain b/l Assessment/Plan: Diagnoses and all orders for this visit: Chronic pain of both shoulders Piriformis syndrome of both sides Somatic dysfunction of upper extremity Somatic dysfunction of thoracic region Somatic dysfunction of lower extremity Problem List Chronic pain of both shoulders - Primary MRI scheduled for 05/12 At this time, stable with no new pain or worsening of pain Notes relief with OMT that lasts for about a week Notes work tends to exacerbate sxs Discussed continuing with OMT, as well as referral to PT Patient interested in evaluation for disability - discussed calling social security office regarding further information Can also potentially consider steroid shot to R shoulder in a future visit, pending MRI results Piriformis syndrome of both sides Noted improvement in her sciatic pain after Rx w/ OMT for piriformis counterstrain At this time, most likely piriformis pain vs true sciatica Discussed trialing stretches at home or beginner friendly yoga stretches to help relax the muscles PT referral placed for further strengthening Somatic dysfunction of thoracic region Patient eager for OMT and notes how beneficial it is for her Performed various techniques including counterstrain, myofascial release and muscle energy of the region listed here and applies to below regions also Tolerated procedure well with no side effects Noted improvement in ROM as well as decreased tenderness on recheck Will have patient f/u for OMT on 05/15 after MRI completed Somatic dysfunction of upper extremity Somatic dysfunction of lower extremity For any new medications prescribed today, patient was educated about indications for the medication, how to take the medication and potential side effects of the medications. Patient staffed and seen with Dr. Bermudez who agrees with this plan. Return in about 10 days (around 05/15/2022) for omt after completing MRI - omt shoulders & LE/piriformis/pelvis. documented in this [id number] Telephone encounter Note* Telephone Encounter - Emelia Coles CMA - 04/18/2022 9:56 AM EDT Pt notified [id number] Miscellaneous Notes* Telephone Encounter - Emelia Coles CMA - 04/18/2022 9:56 AM EDT Pt notified * Telephone Encounter - Peter Mendoza DO - 04/18/2022 9:33 AM EDT We discussed yesterday patient was given 6 month supply 4 months ago, thus should have enough to last until may. Additionally, the MRI for the Right shoulder was ordered yesterday during our visit * Telephone Encounter - Emelia Coles CMA - 04/17/2022 9:41 AM EDT ----- Message from Tami Jade sent at 04/14/2022 4:06 PM EDT ----- Regarding: Pt call back/refill Pt ci stating that she has went twice to have an MRI done and both times it was ordered for the wrong shoulder. She is needing the MRI for her right shoulder. She also is requesting the following scripts. MEDICATION REFILL REQUEST: PCP: Mateusz Linares DO Patient called 04/14/22 and is requesting a medication refill for gabapentin (NEURONTIN) 300 MG capsule meloxicam (MOBIC) 15 MG tablet. This was confirmed from the current medication list found in the patients chart. Supply Requested: # of days: 90 days Method of receiving: Send to pharmacy Last set of flowsheet rows for OARRS report: OARRS/NARxCHECK Report Received and Assessed: 05/03/2021 Date controlled substance agreement signed: No data found Date of last drug screen: No data found Functional Assessment: No data found Will this refill be sent to the preferred pharmacy listed below? Yes Preferred pharmacies: [facility] [address] [place] [address] ([facility]), [facility] [address] [place] [address] [place] [address] ([facility]) [place] [address] Pt Call Back Number Work Phone Not on file. Patient call back message sent to the primary care clinical pool. Tami Jade documented in this [id number] Telephone encounter Note* Telephone Encounter - Peter Mendoza DO - 04/18/2022 9:33 AM EDT We discussed yesterday patient was given 6 month supply 4 months ago, thus should have enough to last until may. Additionally, the MRI for the Right shoulder was ordered yesterday during our visit [id number] History of Present illness Narrative* Vikas Bermudez DO - 04/17/2022 11:02 AM EDT I have personally seen and examined the patient independently of the resident physician. I have reviewed the history, physical, diagnosis and care plan with the resident physician, Peter Mendoza DO. I confirm the assessment and treatment plan: Diagnoses and all orders for this visit: Weakness of shoulder - MR Shoulder Right Without Contrast; Future Cervicalgia PHYSICAL EXAMINATION: General: awake alert and oriented. No acute distress. HENT: Normocephalic, atraumatic, EOMI. NEURO: CN 2-12 Grossly intact. No focal deficits noted. PSYCH: Mood and affect appropriate and congruent. No active SI or HI. No evidence of psychosis. Agree with resident plan to provide OMT in office today for right shoulder. Agree with resident plan to place MRI order for right shoulder based on documentation/evaluation byDr. Ragland at last OV. Agree with resident plan to recommend follow up in office in 2-4 weeks. *This is not a complete note, awaiting resident completion prior to attending sign off* * Peter Mendoza, - 04/17/2022 10:02 AM EDT Subjective Patient ID: shay Sweeney is a 56 y.o. female. 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 would like this corrected. Was supposed to have MRI last summer for neck but did not Of note patient significantly distraught today after receiving unfortunate news that her daughter is struggling with addiction. The following portions of the patient's history were reviewed and updated as appropriate: allergies, current medications, past family history, past medical history, past social history, past surgicalhistory and problem list. Patient's Medications New Prescriptions CYCLOBENZAPRINE (FLEXERIL) 10 MG TABLET Take 1 (one) tablet (10 mg total) by mouth 3 (three) times a day as needed for muscle spasms . Previous Medications ACETAMINOPHEN (TYLENOL) 325 MG TABLET Take 650 mg by mouth every 6 (six) hours as needed for pain . ALBUTEROL 90 MCG/ACTUATION INHALER Inhale 2 (two) puffs every 4 to 6 hours as needed for wheezing or shortness of breath . BUPRENORPHINE-NALOXONE (SUBOXONE) 8-[address] 1 tablet under the tongue 2 (two) times a day . BUPROPION (WELLBUTRIN XL) 150 MG 24 HR TABLET Take 1 (one) tablet (150 mg total) by mouth daily . DOCUSATE SODIUM (COLACE) 100 MG CAPSULE Take 1 capsule by mouth once as needed . MELOXICAM (MOBIC) 15 MG TABLET Take 1 (one) tablet (15 mg total) by mouth daily . MULTIVITAMIN (THERAGRAN) PER TABLET Take 1 tablet by mouth daily . OXYBUTYNIN (DITROPAN-XL) 10 MG 24 HR TABLET Take 10 mg by mouth daily . POLYETHYLENE GLYCOL (GLYCOLAX) 17 GRAM/DOSE POWDER Take 17 g by mouth daily . Modified Medications Modified Medication Previous Medication GABAPENTIN (NEURONTIN) 300 MG CAPSULE gabapentin (NEURONTIN) 300 MG capsule Take 2 (two) capsules (600 mg total) by mouth 3 (three) times a day . Take 2 (two) capsules (600 mgtotal) by mouth 3 (three) times a day . Discontinued Medications FOLIC ACID (FOLVITE) 1 MG TABLET Take 1 mg by mouth daily . ONDANSETRON (ZOFRAN) 8 MG TABLET Take 1 (one) tablet (8 mg total) by mouth every 8 (eight) hours asneeded for nausea . PANTOPRAZOLE (PROTONIX) 40 MG TABLET PAROXETINE (PAXIL) 40 MG TABLET Take 1 (one) tablet (40 mg total) by mouth every morning . Review of Systems As per HPI Objective BP (!) 147/86 Pulse 74 Temp 97.3 F (36.3 C) (Temporal) Resp 12 Wt 62.8 kg (138 lb 6.4 oz) LMP 03/24/2015 SpO2 97% BMI 26.15 kg/m Physical Exam Constitutional: Appearance: Normal appearance. HENT: Head: Normocephalic and atraumatic. Right Ear: External ear normal. Left Ear: External ear normal. Nose: Comments: Surgical Mask in place Mouth/Throat: Comments: Surgical Mask in place Eyes: Pupils: Pupils are equal, round, and reactive to light. Cardiovascular: Rate and Rhythm: Normal rate and regular rhythm. Pulses: Normal pulses. Heart sounds: Normal heart sounds. Pulmonary: Effort: Pulmonary effort is normal. No respiratory distress. Breath sounds: Normal breath sounds. Neurological: Mental Status: She is alert. Osteopathic Medical Exam: Head: Occipital-[place]: Flexion: SRRL TART Exam: Full TART exam positive Treatment Comments: Suboccipital hypertonicity Cervical/Neck: TART Exam: Full TART exam positive. Thoracic: T10: Right: FRS Lumbar: Osteopathic Lumbar Exam: L2: Left: ERS L5: Left: ERS Sacrum: Sacral Torsion: R on L Pelvis: Left Innominate anterior. Upper Extremity: General Testing: Tight pec minor: Right: Positive Altered scapular kinetics: Right: Positive Ribs: 1: Exhalation: Right Assessment/Plan: 1. Weakness of shoulder MR Shoulder Right Without Contrast 2. Chronic midline low back pain without sciatica 3. Cervicalgia cyclobenzaprine (FLEXERIL) 10 MG tablet gabapentin (NEURONTIN) 300 MG capsule 4. Somatic dysfunction of head region 5. Somatic dysfunction of pelvis region 6. Somatic dysfunction of lumbar region 7. Somatic dysfunction of upper extremity 8. Somatic dysfunction of rib cage region 9. Somatic dysfunction of cervical region 10. Somatic dysfunction of thoracic region Symptoms improved with OMT today Provided deep listening and comfort in regards to home stressors Correct MRI for shoulder placed Refills on neurontin and flexerill provided OARRS/NARxCHECK Report Received and Assessed: 04/17/2022 Date controlled substance agreement signed: No data found Date of last drug screen: No data found Functional Assessment: No data found OMT applied for patient, following informed consent. Modality (-ies) utilized: soft tissue, BLT, C/S, ME Pt tolerated the OMT as follows: without complication Response in symptomatology reported by patient: decrease pain, improved symptoms Osteopathic medical exam findings after recheck: decreased tenderness, improved ROM, decreased tissue hypertonicity For any new medications prescribed today, patient was educated about indications for the medication, how to take the medication and potential side effects of the medications. Patient staffed and seen with Dr. Bermudez who agrees with this plan. Return in about 2 weeks (around 05/01/2022) for 2-4 weeks re-evaluation, shoulder pain with Dr. Linares. Peter Mendoza DO [facility] PGY-3 Note: To expedite correspondence, this note was generated by [employer] recognition software. Some grammatical or spelling errors may occur using the system. documented in this [id number] History of Present illness Narrative* Vikas Bermudez DO - 04/17/2022 11:02 AM EDT I have personally seen and examined the patient independently of the resident physician. I have reviewed the history, physical, diagnosis and care plan with the resident physician, Peter Mendoza DO. I confirm the assessment and treatment plan: Diagnoses and all orders for this visit: Weakness of shoulder - MR Shoulder Right Without Contrast; Future Chronic midline low back pain without sciatica Cervicalgia - cyclobenzaprine (FLEXERIL) 10 MG tablet; Take 1 (one) tablet (10 mg total) by mouth 3 (three) times a day as needed for muscle spasms . - gabapentin (NEURONTIN) 300 MG capsule; Take 2 (two) capsules (600 mg total) by mouth 3 (three) times a day . Somatic dysfunction of head region Somatic dysfunction of pelvis region Somatic dysfunction of lumbar region Somatic dysfunction of upper extremity Somatic dysfunction of rib cage region Somatic dysfunction of cervical region Somatic dysfunction of thoracic region PHYSICAL EXAMINATION: General: awake alert and oriented. No acute distress. HENT: Normocephalic, atraumatic, EOMI. NEURO: CN 2-12 Grossly intact. No focal deficits noted. PSYCH: Mood and affect appropriate and congruent. No active SI or HI. No evidence of psychosis. Agree with resident plan to provide OMT in office today for right shoulder. Agree with resident plan to place MRI order for right shoulder based on documentation/evaluation byDr. Ragland at last OV. Agree with resident plan to recommend follow up in office in 2-4 weeks. * Peter Mendoza DO - 04/17/2022 10:02 AM EDT Subjective Patient ID: shay Sweeney is a 56 y.o. female. 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 would like this corrected. Was supposed to have MRI last summer for neck but did not Of note patient significantly distraught today after receiving unfortunate news that her daughter is struggling with addiction. The following portions of the patient's history were reviewed and updated as appropriate: allergies, current medications, past family history, past medical history, past social history, past surgicalhistory and problem list. Patient's Medications New Prescriptions CYCLOBENZAPRINE (FLEXERIL) 10 MG TABLET Take 1 (one) tablet (10 mg total) by mouth 3 (three) times a day as needed for muscle spasms . Previous Medications ACETAMINOPHEN (TYLENOL) 325 MG TABLET Take 650 mg by mouth every 6 (six) hours as needed for pain . ALBUTEROL 90 MCG/ACTUATION INHALER Inhale 2 (two) puffs every 4 to 6 hours as needed for wheezing or shortness of breath . BUPRENORPHINE-NALOXONE (SUBOXONE) 8-[address] 1 tablet under the tongue 2 (two) times a day . BUPROPION (WELLBUTRIN XL) 150 MG 24 HR TABLET Take 1 (one) tablet (150 mg total) by mouth daily . DOCUSATE SODIUM (COLACE) 100 MG CAPSULE Take 1 capsule by mouth once as needed . MELOXICAM (MOBIC) 15 MG TABLET Take 1 (one) tablet (15 mg total) by mouth daily . MULTIVITAMIN (THERAGRAN) PER TABLET Take 1 tablet by mouth daily . OXYBUTYNIN (DITROPAN-XL) 10 MG 24 HR TABLET Take 10 mg by mouth daily . POLYETHYLENE GLYCOL (GLYCOLAX) 17 GRAM/DOSE POWDER Take 17 g by mouth daily . Modified Medications Modified Medication Previous Medication GABAPENTIN (NEURONTIN) 300 MG CAPSULE gabapentin (NEURONTIN) 300 MG capsule Take 2 (two) capsules (600 mg total) by mouth 3 (three) times a day . Take 2 (two) capsules (600 mgtotal) by mouth 3 (three) times a day . Discontinued Medications FOLIC ACID (FOLVITE) 1 MG TABLET Take 1 mg by mouth daily . ONDANSETRON (ZOFRAN) 8 MG TABLET Take 1 (one) tablet (8 mg total) by mouth every 8 (eight) hours asneeded for nausea . PANTOPRAZOLE (PROTONIX) 40 MG TABLET PAROXETINE (PAXIL) 40 MG TABLET Take 1 (one) tablet (40 mg total) by mouth every morning . Review of Systems As per HPI Objective BP (!) 147/86 Pulse 74 Temp 97.3 F (36.3 C) (Temporal) Resp 12 Wt 62.8 kg (138 lb 6.4 oz) LMP 03/24/2015 SpO2 97% BMI 26.15 kg/m Physical Exam Constitutional: Appearance: Normal appearance. HENT: Head: Normocephalic and atraumatic. Right Ear: External ear normal. Left Ear: External ear normal. Nose: Comments: Surgical Mask in place Mouth/Throat: Comments: Surgical Mask in place Eyes: Pupils: Pupils are equal, round, and reactive to light. Cardiovascular: Rate and Rhythm: Normal rate and regular rhythm. Pulses: Normal pulses. Heart sounds: Normal heart sounds. Pulmonary: Effort: Pulmonary effort is normal. No respiratory distress. Breath sounds: Normal breath sounds. Neurological: Mental Status: She is alert. Osteopathic Medical Exam: Head: Occipital-[place]: Flexion: SRRL TART Exam: Full TART exam positive Treatment Comments: Suboccipital hypertonicity Cervical/Neck: TART Exam: Full TART exam positive. Thoracic: T10: Right: FRS Lumbar: Osteopathic Lumbar Exam: L2: Left: ERS L5: Left: ERS Sacrum: Sacral Torsion: R on L Pelvis: Left Innominate anterior. Upper Extremity: General Testing: Tight pec minor: Right: Positive Altered scapular kinetics: Right: Positive Ribs: 1: Exhalation: Right Assessment/Plan: 1. Weakness of shoulder MR Shoulder Right Without Contrast 2. Chronic midline low back pain without sciatica 3. Cervicalgia cyclobenzaprine (FLEXERIL) 10 MG tablet gabapentin (NEURONTIN) 300 MG capsule 4. Somatic dysfunction of head region 5. Somatic dysfunction of pelvis region 6. Somatic dysfunction of lumbar region 7. Somatic dysfunction of upper extremity 8. Somatic dysfunction of rib cage region 9. Somatic dysfunction of cervical region 10. Somatic dysfunction of thoracic region Symptoms improved with OMT today Provided deep listening and comfort in regards to home stressors Correct MRI for shoulder placed Refills on neurontin and flexerill provided OARRS/NARxCHECK Report Received and Assessed: 04/17/2022 Date controlled substance agreement signed: No data found Date of last drug screen: No data found Functional Assessment: No data found OMT applied for patient, following informed consent. Modality (-ies) utilized: soft tissue, BLT, C/S, ME Pt tolerated the OMT as follows: without complication Response in symptomatology reported by patient: decrease pain, improved symptoms Osteopathic medical exam findings after recheck: decreased tenderness, improved ROM, decreased tissue hypertonicity For any new medications prescribed today, patient was educated about indications for the medication, how to take the medication and potential side effects of the medications. Patient staffed and seen with Dr. Bermudez who agrees with this plan. Return in about 2 weeks (around 05/01/2022) for 2-4 weeks re-evaluation, shoulder pain with Dr. Linares. Peter Mendoza DO [facility] PGY-3 Note: To expedite correspondence, this note was generated by TV[employer] recognition software. Some grammatical or spelling errors may occur using the system. documented in this [id number] Instructions* Patient Instructions* Peter Mendoza DO - 04/17/2022 10:51 AM EDT If you don't get a call from central scheduling for Cervical MRI, call [phone] documented in this [id number] Telephone encounter Note* Telephone Encounter - Emelia Coles CMA - 04/17/2022 9:41 AM EDT ----- Message from Tami Jade sent at 04/14/2022 4:06 PM EDT ----- Regarding: Pt call back/refill Pt ci stating that she has went twice to have an MRI done and both times it was ordered for the wrong shoulder. She is needing the MRI for her right shoulder. She also is requesting the following scripts. MEDICATION REFILL REQUEST: PCP: Mateusz Linares DO Patient called 04/14/22 and is requesting a medication refill for gabapentin (NEURONTIN) 300 MG capsule meloxicam (MOBIC) 15 MG tablet. This was confirmed from the current medication list found in the patients chart. Supply Requested: # of days: 90 days Method of receiving: Send to pharmacy Last set of flowsheet rows for OARRS report: OARRS/NARxCHECK Report Received and Assessed: 05/03/2021 Date controlled substance agreement signed: No data found Date of last drug screen: No data found Functional Assessment: No data found Will this refill be sent to the preferred pharmacy listed below? Yes Preferred pharmacies: [facility] [address] [place] [address] ([facility]), [facility] [address] [place] [address] ([facility]) [place] [address] Pt Call Back Number Work Phone Not on file. Patient call back message sent to the primary care clinical pool. Tami Jade [id number] History of Present illness Narrative* Thaddeus Lynn DO - 01/05/2022 8:52 AM EDT I have personally seen and examined the patient independently of the resident physician. I have reviewed the history, physical, diagnosis and care plan with the resident physician, Antonio Ragland DO. Pt presents for management of right shoulder pain -- moving from neck into shoulder Has a hx of chronic bilateral shoulder pain Describes a throbbing pain Ibuprofen helps somewhat but not completely BP 129/81 Pulse 78 Temp 97.9 F (36.6 C) (Temporal) Resp 16 Ht 5' 1 Wt 72.1 kg (159 lb) LMP 03/24/2015 SpO2 97% BMI 30.04 kg/m Patient appears in no apparent distress. Alert and oriented x 3. Respirations unlabored. I confirm the assessment and treatment plan: Diagnoses and all orders for this visit: Chronic left shoulder pain Weakness of shoulder - I agree with recommendations given today: Check MRI Consider referral to sports medicine vs orthopedic surgery - I agree with plan for follow up as noted by the resident physician: No follow- ups on file. - I personally examined the patient and reviewed the plan with the resident prior to patient leaving the office. * Antonio Richard Ragland DO - 01/05/2022 8:34 AM EDT Images from the original note were not included. Subjective Patient ID: shay Sweeney is a 56 y.o. female presenting to [facility] for evaluation of... 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 Patient's Medications New Prescriptions No medications on file Previous Medications ACETAMINOPHEN (TYLENOL) 325 MG TABLET Take 650 mg by mouth every 6 (six) hours as needed for pain . ALBUTEROL 90 MCG/ACTUATION INHALER Inhale 2 (two) puffs every 4 to 6 hours as needed for wheezing or shortness of breath . BUPRENORPHINE-NALOXONE (SUBOXONE) 8-[address] 1 tablet under the tongue 2 (two) times a day . BUPROPION (WELLBUTRIN XL) 150 MG 24 HR TABLET Take 1 (one) tablet (150 mg total) by mouth daily . DOCUSATE SODIUM (COLACE) 100 MG CAPSULE Take 1 capsule by mouth once as needed . FOLIC ACID (FOLVITE) 1 MG TABLET Take 1 mg by mouth daily . GABAPENTIN (NEURONTIN) 300 MG CAPSULE Take 2 (two) capsules (600 mg total) by mouth 3 (three) timesa day . MELOXICAM (MOBIC) 15 MG TABLET Take 1 (one) tablet (15 mg total) by mouth daily . MULTIVITAMIN (THERAGRAN) PER TABLET Take 1 tablet by mouth daily . ONDANSETRON (ZOFRAN) 8 MG TABLET Take 1 (one) tablet (8 mg total) by mouth every 8 (eight) hours asneeded for nausea . OXYBUTYNIN (DITROPAN-XL) 10 MG 24 HR TABLET Take 10 mg by mouth daily . PANTOPRAZOLE (PROTONIX) 40 MG TABLET PAROXETINE (PAXIL) 40 MG TABLET Take 1 (one) tablet (40 mg total) by mouth every morning . POLYETHYLENE GLYCOL (GLYCOLAX) 17 GRAM/DOSE POWDER Take 17 g by mouth daily . Modified Medications No medications on file Discontinued Medications No medications on file Review of Systems Constitutional: Negative for chills, fatigue and fever. HENT: Negative for congestion. Eyes: Negative for visual disturbance. Respiratory: Negative for cough and shortness of breath. Cardiovascular: Negative for chest pain and palpitations. Gastrointestinal: Negative for abdominal pain, blood in stool, constipation, diarrhea, nausea and vomiting. Genitourinary: Negative for dysuria. Musculoskeletal: Positive for arthralgias (right shoulder), back pain (chronic) and neck pain (chronic). Negative for joint swelling and myalgias. Skin: Negative for rash. Neurological: Positive for weakness (right shoulder) and numbness (paresthesias right hand/fingers/arm). Negative for dizziness, light-headedness and headaches. Objective BP 129/81 Pulse 78 Temp 97.9 F (36.6 C) (Temporal) Resp 16 Ht 5' 1 Wt 72.1 kg (159 lb) LMP 03/24/2015 SpO2 97% BMI 30.04 kg/m Physical Exam Constitutional: General: She is not in acute distress. Appearance: Normal appearance. She is normal weight. HENT: Head: Normocephalic and atraumatic. Right Ear: External ear normal. Left Ear: External ear normal. Nose: Nose normal. Mouth/Throat: Mouth: Mucous membranes are moist. Eyes: Pupils: Pupils are equal, round, and reactive to light. Cardiovascular: Rate and Rhythm: Normal rate and regular rhythm. Pulses: Normal pulses. Heart sounds: Normal heart sounds. No murmur heard. Pulmonary: Effort: Pulmonary effort is normal. Breath sounds: Normal breath sounds. Abdominal: General: Abdomen is flat. Palpations: Abdomen is soft. Tenderness: There is no abdominal tenderness. Musculoskeletal: General: No deformity. Normal range of motion. Cervical back: Normal range of motion. Comments: Right shoulder exam: reduced right ROM with abduction, internal rotation and external rotation No AC/SC joint tenderness appreciated Apley's scratch test to right reduced compared to left 4/5 strength with external/internal rotation 3/5 strength with shoulder flexion past horizontal 3/5 strength with shoulder adduction past horizontal No biceps tendon tenderness to palpation Positive Empty can Negative Lift off Positive Drop-arm Positive Hawkin's, Neer's Negative Apprehension Normal neurovascular exam Skin: General: Skin is warm. Neurological: General: No focal deficit present. Mental Status: She is alert and oriented to person, place, and time. Psychiatric: Mood and Affect: Mood normal. Assessment/Plan: Diagnoses and all orders for this visit: Chronic left shoulder pain\ Weakness of shoulder Failure of conservative measures including osteopathic manual treatments, ibuprofen and other over the counter medications, home exercises Pain is [id number]. Range of motion drastically decreased in the past few weeks, significant weakness on exam. Suspect rotator cuff pathology, supraspinatus weakness vs neurovascular compromise. At this point, MRI is essential to further evaluate complaint, especially given acute weakness and worsening pain. OMM treatment was provided today. I have supervised medical student Arlene while performing treatment. - MR Shoulder Left Without Contrast; Future For any new medications prescribed today, patient was educated about indications for the medication, how to take the medication and potential side effects of the medications. Patient staffed with Dr. Lynn who agrees with this plan. Return pending MRI results ; has visit in one week. Pal Ragland DO documented in this [id number] History of Present illness Narrative* Thaddeus Lynn DO - 01/05/2022 8:52 AM EDT I have personally seen and examined the patient independently of the resident physician. I have reviewed the history, physical, diagnosis and care plan with the resident physician, Antonio Ragland DO. Pt presents for management of right shoulder pain -- moving from neck into shoulder Has a hx of chronic bilateral shoulder pain Describes a throbbing pain Ibuprofen helps somewhat but not completely BP 129/81 Pulse 78 Temp 97.9 F (36.6 C) (Temporal) Resp 16 Ht 5' 1 Wt 72.1 kg (159 lb) LMP 03/24/2015 SpO2 97% BMI 30.04 kg/m Patient appears in no apparent distress. Alert and oriented x 3. Respirations unlabored. I confirm the assessment and treatment plan: Diagnoses and all orders for this visit: Chronic left shoulder pain - MR Shoulder Left Without Contrast; Future Weakness of shoulder - MR Shoulder Left Without Contrast; Future - I agree with recommendations given today: Check MRI Consider referral to sports medicine vs orthopedic surgery - I agree with plan for follow up as noted by the resident physician: Return pending MRI results ; has visit in one week. - I personally examined the patient and reviewed the plan with the resident prior to patient leaving the office. * Antonio Ragland DO - 01/05/2022 8:34 AM EDT Images from the original note were not included. Subjective Patient ID: shay Sweeney is a 56 y.o. female presenting to [facility] for evaluation of... 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 Patient's Medications New Prescriptions No medications on file Previous Medications ACETAMINOPHEN (TYLENOL) 325 MG TABLET Take 650 mg by mouth every 6 (six) hours as needed for pain . ALBUTEROL 90 MCG/ACTUATION INHALER Inhale 2 (two) puffs every 4 to 6 hours as needed for wheezing or shortness of breath . BUPRENORPHINE-NALOXONE (SUBOXONE) 8-[address] 1 tablet under the tongue 2 (two) times a day . BUPROPION (WELLBUTRIN XL) 150 MG 24 HR TABLET Take 1 (one) tablet (150 mg total) by mouth daily . DOCUSATE SODIUM (COLACE) 100 MG CAPSULE Take 1 capsule by mouth once as needed . FOLIC ACID (FOLVITE) 1 MG TABLET Take 1 mg by mouth daily . GABAPENTIN (NEURONTIN) 300 MG CAPSULE Take 2 (two) capsules (600 mg total) by mouth 3 (three) timesa day . MELOXICAM (MOBIC) 15 MG TABLET Take 1 (one) tablet (15 mg total) by mouth daily . MULTIVITAMIN (THERAGRAN) PER TABLET Take 1 tablet by mouth daily . ONDANSETRON (ZOFRAN) 8 MG TABLET Take 1 (one) tablet (8 mg total) by mouth every 8 (eight) hours asneeded for nausea . OXYBUTYNIN (DITROPAN-XL) 10 MG 24 HR TABLET Take 10 mg by mouth daily . PANTOPRAZOLE (PROTONIX) 40 MG TABLET PAROXETINE (PAXIL) 40 MG TABLET Take 1 (one) tablet (40 mg total) by mouth every morning . POLYETHYLENE GLYCOL (GLYCOLAX) 17 GRAM/DOSE POWDER Take 17 g by mouth daily . Modified Medications No medications on file Discontinued Medications No medications on file Review of Systems Constitutional: Negative for chills, fatigue and fever. HENT: Negative for congestion. Eyes: Negative for visual disturbance. Respiratory: Negative for cough and shortness of breath. Cardiovascular: Negative for chest pain and palpitations. Gastrointestinal: Negative for abdominal pain, blood in stool, constipation, diarrhea, nausea and vomiting. Genitourinary: Negative for dysuria. Musculoskeletal: Positive for arthralgias (right shoulder), back pain (chronic) and neck pain (chronic). Negative for joint swelling and myalgias. Skin: Negative for rash. Neurological: Positive for weakness (right shoulder) and numbness (paresthesias right hand/fingers/arm). Negative for dizziness, light-headedness and headaches. Objective BP 129/81 Pulse 78 Temp 97.9 F (36.6 C) (Temporal) Resp 16 Ht 5' 1 Wt 72.1 kg (159 lb) LMP 03/24/2015 SpO2 97% BMI 30.04 kg/m Physical Exam Constitutional: General: She is not in acute distress. Appearance: Normal appearance. She is normal weight. HENT: Head: Normocephalic and atraumatic. Right Ear: External ear normal. Left Ear: External ear normal. Nose: Nose normal. Mouth/Throat: Mouth: Mucous membranes are moist. Eyes: Pupils: Pupils are equal, round, and reactive to light. Cardiovascular: Rate and Rhythm: Normal rate and regular rhythm. Pulses: Normal pulses. Heart sounds: Normal heart sounds. No murmur heard. Pulmonary: Effort: Pulmonary effort is normal. Breath sounds: Normal breath sounds. Abdominal: General: Abdomen is flat. Palpations: Abdomen is soft. Tenderness: There is no abdominal tenderness. Musculoskeletal: General: No deformity. Normal range of motion. Cervical back: Normal range of motion. Comments: Right shoulder exam: reduced right ROM with abduction, internal rotation and external rotation No AC/SC joint tenderness appreciated Apley's scratch test to right reduced compared to left 4/5 strength with external/internal rotation 3/5 strength with shoulder flexion past horizontal 3/5 strength with shoulder adduction past horizontal No biceps tendon tenderness to palpation Positive Empty can Negative Lift off Positive Drop-arm Positive Hawkin's, Neer's Negative Apprehension Normal neurovascular exam Skin: General: Skin is warm. Neurological: General: No focal deficit present. Mental Status: She is alert and oriented to person, place, and time. Psychiatric: Mood and Affect: Mood normal. Assessment/Plan: Diagnoses and all orders for this visit: Chronic left shoulder pain\ Weakness of shoulder Failure of conservative measures including osteopathic manual treatments, ibuprofen and other over the counter medications, home exercises Pain is [id number]. Range of motion drastically decreased in the past few weeks, significant weakness on exam. Suspect rotator cuff pathology, supraspinatus weakness vs neurovascular compromise. At this point, MRI is essential to further evaluate complaint, especially given acute weakness and worsening pain. OMM treatment was provided today. I have supervised medical student Arlene while performing treatment. - MR Shoulder Left Without Contrast; Future For any new medications prescribed today, patient was educated about indications for the medication, how to take the medication and potential side effects of the medications. Patient staffed with Dr. Lynn who agrees with this plan. Return pending MRI results ; has visit in one week. Pal Ragland DO documented in this [id number] History of Present illness Narrative* Vikas Bermudez DO - 12/12/2021 12:03 PM EST Telephone Visit Attending Attestation Patient: Zofia Sweeney (1965) Preceptor Location: [address] [place] [address] [place] [phone] I have precepted the telephone visit with the resident physician, Radha Francois DO. I did not directly communicate with the patient. I have reviewed the history, diagnosis, and care plan. I confirm the assessment and treatment plan: Diagnoses and all orders for this visit: Nausea - ondansetron (ZOFRAN) 8 MG tablet; Take 1 (one) tablet (8 mg total) by mouth every 8 (eight) hoursas needed for nausea . Fatigue, unspecified type Cervicalgia - meloxicam (MOBIC) 15 MG tablet; Take 1 (one) tablet (15 mg total) by mouth daily . - gabapentin (NEURONTIN) 300 MG capsule; Take 2 (two) capsules (600 mg total) by mouth 3 (three) times a day . Depression, unspecified depression type Comments: mood well controlled on Paxil refilled today, pt will return to discuss further Orders: - PARoxetine (PAXIL) 40 MG tablet; Take 1 (one) tablet (40 mg total) by mouth every morning . - buPROPion (Wellbutrin XL) 150 MG 24 hr tablet; Take 1 (one) tablet (150 mg total) by mouth daily . Agree with resident plan to continue with conservative self care measures for the recent nausea andmalaise with script for short course of zofran prn for the nausea Agree with resident plan to recommend continuing on paxil and bupropion as reportedly stable and inned of refills, and plan on office F/U in 2 weeks to discuss mood control in more detail. * Radha Francois DO - 12/12/2021 11:57 AM EST Telephone Visit Via Phone Call [facility] [address] [facility] [phone] Telephone Visit [facility] 12/12/2021 Radha Francois DO Provider Location: [address] [place] [address] Patient Location Exercise Equipment Specialist: None Patient Location: Patient's Home Patient: Zofia Sweeney Date of : 1965 (56 y.o. female) PCP: Peter Mendoza DO I discussed risks, benefits and alternatives of a telephone visit telemedicine consultation with the patient (and any accompanying persons) including the risks that the patient's personal health details and medical records will be discussed over real-time, synchronous, interactive audio technology,the visit will not be recorded without the express consent of both the provider and the patient, and that there are inherent diagnostic limitations compared to [id number] evaluations. We elected toproceed with the telephone visit telemedicine consultation. Chief Complaint Patient presents with Fatigue Nausea HPI Fatigue and vomiting - Started and Sunday - Started getting better Sunday but still felt fatigued - Feeling even better today and has not had any vomiting since Sunday. - Has been taking Advil and Pepto Bismol - Denies any fevers, URI sx The following portions of the patient's history were reviewed and updated as appropriate: allergies, current medications, past family history, past medical history, past social history, past surgicalhistory and problem list. Review of Systems Constitutional: Positive for fatigue. Negative for chills and fever. HENT: Negative for congestion, ear pain, hearing loss and sore throat. Eyes: Negative for pain and visual disturbance. Respiratory: Negative for cough, chest tightness, shortness of breath and wheezing. Cardiovascular: Negative for chest pain. Gastrointestinal: Positive for nausea. Negative for abdominal pain, constipation, diarrhea and vomiting. Genitourinary: Negative for dysuria, frequency and urgency. Neurological: Negative for weakness, numbness and headaches. Patient's Medications New Prescriptions ONDANSETRON (ZOFRAN) 8 MG TABLET Take 1 (one) tablet (8 mg total) by mouth every 8 (eight) hours asneeded for nausea . Previous Medications ACETAMINOPHEN (TYLENOL) 325 MG TABLET Take 650 mg by mouth every 6 (six) hours as needed for pain . ALBUTEROL 90 MCG/ACTUATION INHALER Inhale 2 (two) puffs every 4 to 6 hours as needed for wheezing or shortness of breath . BUPRENORPHINE-NALOXONE (SUBOXONE) 8-[address] 1 tablet under the tongue 2 (two) times a day . DOCUSATE SODIUM (COLACE) 100 MG CAPSULE Take 1 capsule by mouth once as needed . FOLIC ACID (FOLVITE) 1 MG TABLET Take 1 mg by mouth daily . MULTIVITAMIN (DAILY MULTIPLE) PER TABLET Take 1 tablet by mouth daily . OXYBUTYNIN (DITROPAN-XL) 10 MG 24 HR TABLET Take 10 mg by mouth daily . PANTOPRAZOLE (PROTONIX) 40 MG TABLET POLYETHYLENE GLYCOL (GLYCOLAX) 17 GRAM/DOSE POWDER Take 17 g by mouth daily . Modified Medications Modified Medication Previous Medication BUPROPION (WELLBUTRIN XL) 150 MG 24 HR TABLET buPROPion (Wellbutrin XL) 150 MG 24 hr tablet Take 1 (one) tablet (150 mg total) by mouth daily . Take 1 (one) tablet (150 mg total) by mouth daily . GABAPENTIN (NEURONTIN) 300 MG CAPSULE gabapentin (NEURONTIN) 300 MG capsule Take 2 (two) capsules (600 mg total) by mouth 3 (three) times a day . Take 2 (two) capsules (600 mgtotal) by mouth 3 (three) times a day . MELOXICAM (MOBIC) 15 MG TABLET meloxicam (MOBIC) 15 MG tablet Take 1 (one) tablet (15 mg total) by mouth daily . Take 1 (one) tablet (15 mg total) by mouth daily. PAROXETINE (PAXIL) 40 MG TABLET PARoxetine (PAXIL) 40 MG tablet Take 1 (one) tablet (40 mg total) by mouth every morning . Take 1 (one) tablet (40 mg total) by mouth every morning . Discontinued Medications TIZANIDINE (ZANAFLEX) 2 MG TABLET Take 1 (one) tablet (2 mg total) by mouth 3 (three) times a day . Assessment/Plan: Diagnoses and all orders for this visit: Nausea Fatigue, unspecified type - Patient is overall improving well at this point. Patient may continue using the [id number] medications that she is taking as needed. I prescribed her Zofran for her nausea as needed. Patient encouraged to let us know if her symptoms start to worsen or she does not get better. - ondansetron (ZOFRAN) 8 MG tablet; Take 1 (one) tablet (8 mg total) by mouth every 8 (eight) hoursas needed for nausea . Cervicalgia - Refills needed today. - meloxicam (MOBIC) 15 MG tablet; Take 1 (one) tablet (15 mg total) by mouth daily . - gabapentin (NEURONTIN) 300 MG capsule; Take 2 (two) capsules (600 mg total) by mouth 3 (three) times a day . Depression, unspecified depression type - Mood not discussed in detail today. Patient does ask for refills today. She does mention that shefeels like her medication is working as well. Is agreeable to following up in a couple weeks on hermood to further discuss. - PARoxetine (PAXIL) 40 MG tablet; Take 1 (one) tablet (40 mg total) by mouth every morning . - buPROPion (Wellbutrin XL) 150 MG 24 hr tablet; Take 1 (one) tablet (150 mg total) by mouth daily . I have spent 15 minutes with the patient discussing current HPI and Plan of Care The care of this patient was discussed with Dr. Bermudez, who collectively helped with management decisions during and before ending the call Return in about 2 weeks (around 12/26/2021) for Follow Up Mood. Radha Francois DO [facility] PGY-3 documented in this [id number] History of Present illness Narrative* Thaddeus Lynn DO - 10/07/2021 12:03 PM EST Telephone Visit Attending Attestation Patient: Zofia Sweeney (1965) Preceptor Location: [address] [place] [phone] I have precepted the telephone visit with the resident physician, Peter Mendoza DO. I did not directly communicate with the patient. I have reviewed the history, diagnosis, and care plan. Pt presents with headache, congestion, sore throat, rhinorrhea, chills x 1 week No known sick contacts I confirm the assessment and treatment plan: Diagnoses and all orders for this visit: Upper respiratory tract infection, unspecified type - COVID-19/Influenza A,B Molecular; Future - Pending external COVID-19 lab result Recommended supportive care Recommended testing as noted Reviewed ED precautions * Peter Mendoza DO - 10/07/2021 11:22 AM EST Telephone Visit Via Phone Call [facility] [address] [facility] [phone] Telephone Visit [facility] 10/07/2021 Peter Mendoza DO Provider Location: Office Patient Location Exercise Equipment Specialist: None Patient Location: Patient's Home Patient: Zofia Sweeney Date of : 1965 (56 y.o. female) PCP: Peter Mendoza DO I discussed risks, benefits and alternatives of a telephone visit telemedicine consultation with the patient (and any accompanying persons) including the risks that the patient's personal health details and medical records will be discussed over real-time, synchronous, interactive audio technology,the visit will not be recorded without the express consent of both the provider and the patient, and that there are inherent diagnostic limitations compared to [id number] evaluations. We elected toproceed with the telephone visit telemedicine consultation. Chief Complaint Patient presents with URI HPI Sick symptoms Sick for about a week Has had 2 doses of Moderna vaccine No known Covid exposure Endorses, congestion, sore throat, decrease appetite, chills, rhinorrea, and headache/migraine No confusion, no shortness of breath, The following portions of the patient's history were reviewed and updated as appropriate: allergies, current medications, past medical history and problem list. Review of Systems As per HPI Patient's Medications New Prescriptions No medications on file Previous Medications ACETAMINOPHEN (TYLENOL) 325 MG TABLET Take 650 mg by mouth every 6 (six) hours as needed for pain . ALBUTEROL 90 MCG/ACTUATION INHALER Inhale 2 (two) puffs every 4 to 6 hours as needed for wheezing or shortness of breath . BUPRENORPHINE-NALOXONE (SUBOXONE) 8-[address] 1 tablet under the tongue 2 (two) times a day . BUPROPION (WELLBUTRIN XL) 150 MG 24 HR TABLET Take 1 (one) tablet (150 mg total) by mouth daily . DOCUSATE SODIUM (COLACE) 100 MG CAPSULE Take 1 capsule by mouth once as needed . FOLIC ACID (FOLVITE) 1 MG TABLET Take 1 mg by mouth daily . GABAPENTIN (NEURONTIN) 300 MG CAPSULE Take 2 (two) capsules (600 mg total) by mouth 3 (three) timesa day . MELOXICAM (MOBIC) 15 MG TABLET Take 1 (one) tablet (15 mg total) by mouth daily . MULTIVITAMIN (DAILY MULTIPLE) PER TABLET Take 1 tablet by mouth daily . OXYBUTYNIN (DITROPAN-XL) 10 MG 24 HR TABLET Take 10 mg by mouth daily . PANTOPRAZOLE (PROTONIX) 40 MG TABLET PAROXETINE (PAXIL) 40 MG TABLET Take 1 (one) tablet (40 mg total) by mouth every morning . POLYETHYLENE GLYCOL (GLYCOLAX) 17 GRAM/DOSE POWDER Take 17 g by mouth daily . TIZANIDINE (ZANAFLEX) 2 MG TABLET Take 1 (one) tablet (2 mg total) by mouth 3 (three) times a day . Modified Medications No medications on file Discontinued Medications No medications on file Assessment/Plan: Suspect viral illness Strongly recommend ruling out Covid If Covid testing is negative patient is to return to clinic in 1 week if symptoms have not resolved ED precautions discussed primarily worsening shortness of breath and or confusion In the meantime, recommend supportive care such as Mucinex, plenty of fluids, and rest. Orders Placed This Encounter COVID-19/Influenza A,B Molecular Standing Status: Future Number of Occurrences: 1 Standing Expiration Date: 10/07/2022 Order Specific Question: Employed in patient-facing healthcare? Answer: No Order Specific Question: Symptomatic as defined by CDC? Answer: Yes Order Specific Question: Date of Symptom Onset: Answer: 7 Days ago Order Specific Question: Date of Symptom Onset: Answer: 09/30/2021 Order Specific Question: ? Answer: No Order Specific Question: Resident in a congregate (group) care setting? Answer: No Order Specific Question: Is this the first test the patient has had for COVID-19? Answer: No Order Specific Question: Is the patient hospitalized? Answer: No Order Specific Question: Specimen Src: Answer: Nasopharyngeal [838] Order Specific Question: NURSING - Note the Collection Device to use is Answer: Swab in UTM Order Specific Question: Is this COVID-19 lab test being ordered for pre- procedural / pre-surgical / pre-test purposes? Answer: No Order Specific Question: Is the patient symptomatic for COVID-19? Answer: Yes Order Specific Question: Testing population: Answer: Other Order Specific Question: Where will the patient go for specimen collection? Answer: [place] [address] [facility] Order Specific Question: Does the patient/authorized account services representative consent to being tested? Answer: Yes Order Specific Question: Specimen Source Answer: Source Order Specific Question: Patient Race Answer: Race Order Specific Question: Patient Ethnicity Answer: Ethnicity Order Specific Question: Release to patient Answer: Immediate Pending external COVID-19 lab result Order Specific Question: Specify non-[facility] specimen collection site name Answer: Not applicable Order Specific Question: Important Information Answer: This order will set the COVID-19 Suspected Infection I have spent 5 minutes with the patient discussing current HPI and Plan of Care The care of this patient was discussed with Dr. Lynn, who collectively helped with management decisions during and before ending the call Return in about 2 weeks (around 10/21/2021) for Follow Up chronic pain. Peter Mendoza DO documented in this [id number] History of Present illness Narrative* Thaddeus Lynn DO - 10/07/2021 12:03 PM EST Telephone Visit Attending Attestation Patient: Zofia Sweeney (1965) Preceptor Location: [address] [place] [phone] I have precepted the telephone visit with the resident physician, Peter Mendoza DO. I did not directly communicate with the patient. I have reviewed the history, diagnosis, and care plan. Pt presents with headache, congestion, sore throat, rhinorrhea, chills x 1 week No known sick contacts I confirm the assessment and treatment plan: Diagnoses and all orders for this visit: Upper respiratory tract infection, unspecified type - COVID-19/Influenza A,B Molecular; Future - Pending external COVID-19 lab result Recommended supportive care Recommended testing as noted Reviewed ED precautions * Peter Mendoza DO - 10/07/2021 11:22 AM EST Telephone Visit Via Phone Call [facility] [address] [facility] [phone] Telephone Visit [facility] 10/07/2021 Peter Mendoza DO Provider Location: Office Patient Location Exercise Equipment Specialist: None Patient Location: Patient's Home Patient: Zofia Sweeney Date of : 1965 (56 y.o. female) PCP: Peter Mendoza DO I discussed risks, benefits and alternatives of a telephone visit telemedicine consultation with the patient (and any accompanying persons) including the risks that the patient's personal health details and medical records will be discussed over real-time, synchronous, interactive audio technology,the visit will not be recorded without the express consent of both the provider and the patient, and that there are inherent diagnostic limitations compared to [id number] evaluations. We elected toproceed with the telephone visit telemedicine consultation. Chief Complaint Patient presents with URI HPI Sick symptoms Sick for about a week Has had 2 doses of Moderna vaccine No known Covid exposure Endorses, congestion, sore throat, decrease appetite, chills, rhinorrea, and headache/migraine No confusion, no shortness of breath, The following portions of the patient's history were reviewed and updated as appropriate: allergies, current medications, past medical history and problem list. Review of Systems As per HPI Patient's Medications New Prescriptions No medications on file Previous Medications ACETAMINOPHEN (TYLENOL) 325 MG TABLET Take 650 mg by mouth every 6 (six) hours as needed for pain . ALBUTEROL 90 MCG/ACTUATION INHALER Inhale 2 (two) puffs every 4 to 6 hours as needed for wheezing or shortness of breath . BUPRENORPHINE-NALOXONE (SUBOXONE) 8-[address] 1 tablet under the tongue 2 (two) times a day . BUPROPION (WELLBUTRIN XL) 150 MG 24 HR TABLET Take 1 (one) tablet (150 mg total) by mouth daily . DOCUSATE SODIUM (COLACE) 100 MG CAPSULE Take 1 capsule by mouth once as needed . FOLIC ACID (FOLVITE) 1 MG TABLET Take 1 mg by mouth daily . GABAPENTIN (NEURONTIN) 300 MG CAPSULE Take 2 (two) capsules (600 mg total) by mouth 3 (three) timesa day . MELOXICAM (MOBIC) 15 MG TABLET Take 1 (one) tablet (15 mg total) by mouth daily . MULTIVITAMIN (DAILY MULTIPLE) PER TABLET Take 1 tablet by mouth daily . OXYBUTYNIN (DITROPAN-XL) 10 MG 24 HR TABLET Take 10 mg by mouth daily . PANTOPRAZOLE (PROTONIX) 40 MG TABLET PAROXETINE (PAXIL) 40 MG TABLET Take 1 (one) tablet (40 mg total) by mouth every morning . POLYETHYLENE GLYCOL (GLYCOLAX) 17 GRAM/DOSE POWDER Take 17 g by mouth daily . TIZANIDINE (ZANAFLEX) 2 MG TABLET Take 1 (one) tablet (2 mg total) by mouth 3 (three) times a day . Modified Medications No medications on file Discontinued Medications No medications on file Assessment/Plan: Suspect viral illness Strongly recommend ruling out Covid If Covid testing is negative patient is to return to clinic in 1 week if symptoms have not resolved ED precautions discussed primarily worsening shortness of breath and or confusion In the meantime, recommend supportive care such as Mucinex, plenty of fluids, and rest. Orders Placed This Encounter COVID-19/Influenza A,B Molecular Standing Status: Future Number of Occurrences: 1 Standing Expiration Date: 10/07/2022 Order Specific Question: Employed in patient-facing healthcare? Answer: No Order Specific Question: Symptomatic as defined by CDC? Answer: Yes Order Specific Question: Date of Symptom Onset: Answer: 7 Days ago Order Specific Question: Date of Symptom Onset: Answer: 09/30/2021 Order Specific Question: ? Answer: No Order Specific Question: Resident in a congregate (group) care setting? Answer: No Order Specific Question: Is this the first test the patient has had for COVID-19? Answer: No Order Specific Question: Is the patient hospitalized? Answer: No Order Specific Question: Specimen Src: Answer: Nasopharyngeal [838] Order Specific Question: NURSING - Note the Collection Device to use is Answer: Swab in UTM Order Specific Question: Is this COVID-19 lab test being ordered for pre- procedural / pre-surgical / pre-test purposes? Answer: No Order Specific Question: Is the patient symptomatic for COVID-19? Answer: Yes Order Specific Question: Testing population: Answer: Other Order Specific Question: Where will the patient go for specimen collection? Answer: [place] [address] [facility] Order Specific Question: Does the patient/authorized account services representative consent to being tested? Answer: Yes Order Specific Question: Specimen Source Answer: Source Order Specific Question: Patient Race Answer: Race Order Specific Question: Patient Ethnicity Answer: Ethnicity Order Specific Question: Release to patient Answer: Immediate Pending external COVID-19 lab result Order Specific Question: Specify non-[facility] specimen collection site name Answer: Not applicable Order Specific Question: Important Information Answer: This order will set the COVID-19 Suspected Infection I have spent 5 minutes with the patient discussing current HPI and Plan of Care The care of this patient was discussed with Dr. Lynn, who collectively helped with management decisions during and before ending the call Return in about 2 weeks (around 10/21/2021) for Follow Up chronic pain. Peter Mendoza DO documented in this [id number] History of Present illness Narrative* Beto Lance DO - 09/23/2021 8:38 PM EST LATE ENTRY NOTE I have personally seen and examined the patient independently of the resident physician. I have reviewed the history, physical, diagnosis and care plan with the resident physician, Peter Mendoza DO. She appears well, in no apparent distress. Alert and oriented times three, pleasant and cooperative. Vital signs are as documented in vital signs section. PACU Vitals 09/14/21 1601 BP: 115/74 Pulse: 66 Temp: 97.6 F (36.4 C) SpO2: 93% I confirm the assessment and treatment plan: Cervicalgia Chronic low back pain Symptoms improved significantly with OMT today Continues to report great improvement in overall chronic pain since undergoing the OMT treatments. Encourage patient to continue her stretching, and to try to push herself to be more active given that her pain is improved so much. Continue gabapentin at current dose as below, will discuss tapering down at follow-up. - gabapentin (NEURONTIN) 300 MG capsule; Take 2 (two) capsules (600 mg total) by mouth 3 (three) times a day . Irritable bowel syndrome with diarrhea Diarrhea is likely due to her chronic IBS Patient has had no recent antibiotic use and she says that this does not feel the same as what she had C. Difficile. Patient has been instructed to call our on-call service should her symptoms worsen, or continue. Offered stool toxin testing today, but patient declined. Somatic dysfunction of head region Somatic dysfunction of cervical region Somatic dysfunction of thoracic region Somatic dysfunction of rib cage region Somatic dysfunction of lumbar region Somatic dysfunction of pelvis region Somatic dysfunction of upper extremity Somatic dysfunction of lower extremity Somatic dysfunction of abdominal region OMT applied for patient, following informed consent. Modality (-ies) utilized: Stills, soft tissue, BLT, HVLA (pelvis only) Pt tolerated the OMT as follows: without complication Response in symptomatology reported by patient: decrease pain, improved symptoms Osteopathic medical exam findings after recheck: decreased tenderness, improved ROM, decreased tissue hypertonicity Return in about 4 weeks (around 10/12/2021) for back pain. - I agree with the return to office plan - I agree with the prescriptions given to the patient - I have personally seen and examined the patient independently of the resident physician. * Peter Mendoza DO - 09/14/2021 4:22 PM EST Subjective Patient ID: shay Sweeney is a 56 y.o. female. Chief Complaint Patient presents with Neck Pain Back Pain HPI Patient pain has improved a lot She doesn't have to wear pain patch every day Right now pain is 3/10 Mostly in neck No other new symptoms Diarrhea started 3-4 days ago Feels like normal ibs diarrhea No recent antibiotics Foul smell, but patient doubts she has C. Diff again. She is taking gas-x which helps The following portions of the patient's history were reviewed and updated as appropriate: allergies, current medications, past family history, past medical history, past social history, past surgicalhistory and problem list. Patient's Medications New Prescriptions No medications on file Previous Medications ACETAMINOPHEN (TYLENOL) 325 MG TABLET Take 650 mg by mouth every 6 (six) hours as needed for pain . ALBUTEROL 90 MCG/ACTUATION INHALER Inhale 2 (two) puffs every 4 to 6 hours as needed for wheezing or shortness of breath . BUPRENORPHINE-NALOXONE (SUBOXONE) 8-[address] 1 tablet under the tongue 2 (two) times a day . BUPROPION (WELLBUTRIN XL) 150 MG 24 HR TABLET Take 1 (one) tablet (150 mg total) by mouth daily . DOCUSATE SODIUM (COLACE) 100 MG CAPSULE Take 1 capsule by mouth once as needed . FOLIC ACID (FOLVITE) 1 MG TABLET Take 1 mg by mouth daily . MELOXICAM (MOBIC) 15 MG TABLET Take 1 (one) tablet (15 mg total) by mouth daily . MULTIVITAMIN (DAILY MULTIPLE) PER TABLET Take 1 tablet by mouth daily . OXYBUTYNIN (DITROPAN-XL) 10 MG 24 HR TABLET Take 10 mg by mouth daily . PANTOPRAZOLE (PROTONIX) 40 MG TABLET PAROXETINE (PAXIL) 40 MG TABLET Take 1 (one) tablet (40 mg total) by mouth every morning . POLYETHYLENE GLYCOL (GLYCOLAX) 17 GRAM/DOSE POWDER Take 17 g by mouth daily . TIZANIDINE (ZANAFLEX) 2 MG TABLET Take 1 (one) tablet (2 mg total) by mouth 3 (three) times a day . Modified Medications Modified Medication Previous Medication GABAPENTIN (NEURONTIN) 300 MG CAPSULE gabapentin (NEURONTIN) 300 MG capsule Take 2 (two) capsules (600 mg total) by mouth 3 (three) times a day . Take 2 (two) capsules (600 mgtotal) by mouth 3 (three) times a day . Discontinued Medications No medications on file Review of Systems Objective BP 115/74 Pulse 66 Temp 97.6 F (36.4 C) Wt 79.2 kg (174 lb 9.6 oz) LMP 03/24/2015 SpO2 93% BMI 32.99 kg/m Physical Exam Constitutional: Appearance: Normal appearance. HENT: Head: Normocephalic and atraumatic. Right Ear: External ear normal. Left Ear: External ear normal. Nose: Comments: Surgical Mask in place Mouth/Throat: Comments: Surgical Mask in place Eyes: Pupils: Pupils are equal, round, and reactive to light. Cardiovascular: Rate and Rhythm: Normal rate and regular rhythm. Pulses: Normal pulses. Heart sounds: Normal heart sounds. Pulmonary: Effort: Pulmonary effort is normal. No respiratory distress. Breath sounds: Normal breath sounds. Abdominal: General: Abdomen is flat. Bowel sounds are normal. There is distension. Palpations: Abdomen is soft. Tenderness: There is no abdominal tenderness. There is no guarding or rebound. Neurological: Mental Status: She is alert. Osteopathic Medical Exam: Head: Occipital-[place]: Extension: SLRR Cervical/Neck: Cervical Exam AA: Rotated R C2: Right: ERS C5: Right: ERS Thoracic: T4: Right: FRS Lumbar: Osteopathic Lumbar Exam: TART Exam: Full TART exam positive Treatment Comments: bilateral paravertebral hypertonicity treated with soft tissue Pelvis: Left Innominate posterior. Right Innominate anterior. Lower Extremity: Osteopathic Exam Femoral - Tibial Joint: External Rotation Dysfunction: Left: Positive Upper Extremity: Shoulder: G-H Dysfunction: Internal Rotation: Left: Positive Ribs: 10: Exhalation: Right Abdominal and Visceral: Abdominal fascial restrictions: Inferior Mesenteric Ganglion Decreased motility: Stomach and Large Intestine Assessment/Plan: Diagnoses and all orders for this visit: Cervicalgia Chronic low back pain Symptoms improved significantly with OMT today Continues to report great improvement in overall chronic pain since undergoing the OMT treatments. Encourage patient to continue her stretching, and to try to push herself to be more active given that her pain is improved so much. Continue gabapentin at current dose as below, will discuss tapering down at follow-up. - gabapentin (NEURONTIN) 300 MG capsule; Take 2 (two) capsules (600 mg total) by mouth 3 (three) times a day . Irritable bowel syndrome with diarrhea Diarrhea is likely due to her chronic IBS Patient has had no recent antibiotic use and she says that this does not feel the same as what she had C. Difficile. Patient has been instructed to call our on-call service should her symptoms worsen, or continue. Offered stool toxin testing today, but patient declined. Somatic dysfunction of head region Somatic dysfunction of cervical region Somatic dysfunction of thoracic region Somatic dysfunction of rib cage region Somatic dysfunction of lumbar region Somatic dysfunction of pelvis region Somatic dysfunction of upper extremity Somatic dysfunction of lower extremity Somatic dysfunction of abdominal region OMT applied for patient, following informed consent. Modality (-ies) utilized: Stills, soft tissue, BLT, HVLA (pelvis only) Pt tolerated the OMT as follows: without complication Response in symptomatology reported by patient: decrease pain, improved symptoms Osteopathic medical exam findings after recheck: decreased tenderness, improved ROM, decreased tissue hypertonicity For any new medications prescribed today, patient was educated about indications for the medication, how to take the medication and potential side effects of the medications. Patient staffed and seen with Dr. Lance who agrees with this plan. Return in about 4 weeks (around 10/12/2021) for back pain. Peter Mendoza DO [facility] PGY-3 Note: To expedite correspondence, this note was generated by [employer] voice recognition software. Some grammatical or spelling errors may occur using the system. documented in this [id number] History of Present illness Narrative* Peter Mendoza DO - 09/14/2021 4:22 PM EST Subjective Patient ID: shay Sweeney is a 56 y.o. female. Chief Complaint Patient presents with Neck Pain Back Pain HPI Patient pain has improved a lot She doesn't have to wear pain patch every day Right now pain is 3/10 Mostly in neck No other new symptoms Diarrhea started 3-4 days ago Feels like normal ibs diarrhea No recent antibiotics Foul smell, but patient doubts she has C. Diff again. She is taking gas-x which helps The following portions of the patient's history were reviewed and updated as appropriate: allergies, current medications, past family history, past medical history, past social history, past surgicalhistory and problem list. Patient's Medications New Prescriptions No medications on file Previous Medications ACETAMINOPHEN (TYLENOL) 325 MG TABLET Take 650 mg by mouth every 6 (six) hours as needed for pain . ALBUTEROL 90 MCG/ACTUATION INHALER Inhale 2 (two) puffs every 4 to 6 hours as needed for wheezing or shortness of breath . BUPRENORPHINE-NALOXONE (SUBOXONE) 8-[address] 1 tablet under the tongue 2 (two) times a day . BUPROPION (WELLBUTRIN XL) 150 MG 24 HR TABLET Take 1 (one) tablet (150 mg total) by mouth daily . DOCUSATE SODIUM (COLACE) 100 MG CAPSULE Take 1 capsule by mouth once as needed . FOLIC ACID (FOLVITE) 1 MG TABLET Take 1 mg by mouth daily . MELOXICAM (MOBIC) 15 MG TABLET Take 1 (one) tablet (15 mg total) by mouth daily . MULTIVITAMIN (DAILY MULTIPLE) PER TABLET Take 1 tablet by mouth daily . OXYBUTYNIN (DITROPAN-XL) 10 MG 24 HR TABLET Take 10 mg by mouth daily . PANTOPRAZOLE (PROTONIX) 40 MG TABLET PAROXETINE (PAXIL) 40 MG TABLET Take 1 (one) tablet (40 mg total) by mouth every morning . POLYETHYLENE GLYCOL (GLYCOLAX) 17 GRAM/DOSE POWDER Take 17 g by mouth daily . TIZANIDINE (ZANAFLEX) 2 MG TABLET Take 1 (one) tablet (2 mg total) by mouth 3 (three) times a day . Modified Medications Modified Medication Previous Medication GABAPENTIN (NEURONTIN) 300 MG CAPSULE gabapentin (NEURONTIN) 300 MG capsule Take 2 (two) capsules (600 mg total) by mouth 3 (three) times a day . Take 2 (two) capsules (600 mgtotal) by mouth 3 (three) times a day . Discontinued Medications No medications on file Review of Systems Objective BP 115/74 Pulse 66 Temp 97.6 F (36.4 C) Wt 79.2 kg (174 lb 9.6 oz) LMP 03/24/2015 SpO2 93% BMI 32.99 kg/m Physical Exam Constitutional: Appearance: Normal appearance. HENT: Head: Normocephalic and atraumatic. Right Ear: External ear normal. Left Ear: External ear normal. Nose: Comments: Surgical Mask in place Mouth/Throat: Comments: Surgical Mask in place Eyes: Pupils: Pupils are equal, round, and reactive to light. Cardiovascular: Rate and Rhythm: Normal rate and regular rhythm. Pulses: Normal pulses. Heart sounds: Normal heart sounds. Pulmonary: Effort: Pulmonary effort is normal. No respiratory distress. Breath sounds: Normal breath sounds. Abdominal: General: Abdomen is flat. Bowel sounds are normal. There is distension. Palpations: Abdomen is soft. Tenderness: There is no abdominal tenderness. There is no guarding or rebound. Neurological: Mental Status: She is alert. Osteopathic Medical Exam: Head: Occipital-[place]unction: Extension: SLRR Cervical/Neck: Cervical Exam AA: Rotated R C2: Right: ERS C5: Right: ERS Thoracic: T4: Right: FRS Lumbar: Osteopathic Lumbar Exam: TART Exam: Full TART exam positive Treatment Comments: bilateral paravertebral hypertonicity treated with soft tissue Pelvis: Left Innominate posterior. Right Innominate anterior. Lower Extremity: Osteopathic Exam Femoral - Tibial Joint: External Rotation Dysfunction: Left: Positive Upper Extremity: Shoulder: G-H Dysfunction: Internal Rotation: Left: Positive Ribs: 10: Exhalation: Right Abdominal and Visceral: Abdominal fascial restrictions: Inferior Mesenteric Ganglion Decreased motility: Stomach and Large Intestine Assessment/Plan: Diagnoses and all orders for this visit: Cervicalgia Chronic low back pain Symptoms improved significantly with OMT today Continues to report great improvement in overall chronic pain since undergoing the OMT treatments. Encourage patient to continue her stretching, and to try to push herself to be more active given that her pain is improved so much. Continue gabapentin at current dose as below, will discuss tapering down at follow-up. - gabapentin (NEURONTIN) 300 MG capsule; Take 2 (two) capsules (600 mg total) by mouth 3 (three) times a day . Irritable bowel syndrome with diarrhea Diarrhea is likely due to her chronic IBS Patient has had no recent antibiotic use and she says that this does not feel the same as what she had C. Difficile. Patient has been instructed to call our on-call service should her symptoms worsen, or continue. Offered stool toxin testing today, but patient declined. Somatic dysfunction of head region Somatic dysfunction of cervical region Somatic dysfunction of thoracic region Somatic dysfunction of rib cage region Somatic dysfunction of lumbar region Somatic dysfunction of pelvis region Somatic dysfunction of upper extremity Somatic dysfunction of lower extremity Somatic dysfunction of abdominal region OMT applied for patient, following informed consent. Modality (-ies) utilized: Stills, soft tissue, BLT, HVLA (pelvis only) Pt tolerated the OMT as follows: without complication Response in symptomatology reported by patient: decrease pain, improved symptoms Osteopathic medical exam findings after recheck: decreased tenderness, improved ROM, decreased tissue hypertonicity For any new medications prescribed today, patient was educated about indications for the medication, how to take the medication and potential side effects of the medications. Patient staffed and seen with Dr. Lance who agrees with this plan. Return in about 4 weeks (around 10/12/2021) for back pain. Peter Mendoza DO [facility] PGY-3 Note: To expedite correspondence, this note was generated by [employer] voice recognition software. Some grammatical or spelling errors may occur using the system. documented in this [id number] History of Present illness Narrative* Thaddeus Lynn DO - 09/05/2021 10:52 AM EST I have personally seen and examined the patient independently of the resident physician. I have reviewed the history, physical, diagnosis and care plan with the resident physician, Lamonte Cortez DO. Pt presents for evaluation of enlarged area on right thigh/hip Has been present for approx 3 months or longer. Denies associated skin changes or drainage Admits to recent increase in size Denies associated pain BP 120/81 Pulse 75 Temp 97.4 F (36.3 C) Wt 77.4 kg (170 lb 9.6 oz) LMP 03/24/2015 SpO2 96% BMI 32.23 kg/m Patient appears in no apparent distress. Alert and oriented x 3. Respirations unlabored. I confirm the assessment and treatment plan: There are no diagnoses linked to this encounter. - I agree with recommendations given today: check US of lower extremity - I agree with plan for follow up as noted by the resident physician: with PCP later this month as scheduled - I personally examined the patient and reviewed the plan with the resident prior to patient leaving the office. * Lamonte Cortez DO - 09/05/2021 10:39 AM EST Subjective Patient ID: shay Sweeney is a 56 y.o. female. Chief Complaint Patient presents with Mass Possible hip mass. Pt states it is on her right hip. HPI R Lateral Thigh Mass Non-painful and not change in size however feels R upper leg and low back has been feeling full andboggy with associated stiffness. This is not impacting her mobility First noticed a few months ago and presumed to be a lipoma No prior Hx of cancer Previous hysterectomy may coincide with initial onset The following portions of the patient's history were reviewed and updated as appropriate: allergies, current medications, past family history, past medical history, past social history, past surgicalhistory and problem list. Patient's Medications New Prescriptions No medications on file Previous Medications ACETAMINOPHEN (TYLENOL) 325 MG TABLET Take 650 mg by mouth every 6 (six) hours as needed for pain . ALBUTEROL 90 MCG/ACTUATION INHALER Inhale 2 (two) puffs every 4 to 6 hours as needed for wheezing or shortness of breath . BUPRENORPHINE-NALOXONE (SUBOXONE) 8-[address] 1 tablet under the tongue 2 (two) times a day . BUPROPION (WELLBUTRIN XL) 150 MG 24 HR TABLET Take 1 (one) tablet (150 mg total) by mouth daily . DOCUSATE SODIUM (COLACE) 100 MG CAPSULE Take 1 capsule by mouth once as needed . FOLIC ACID (FOLVITE) 1 MG TABLET Take 1 mg by mouth daily . GABAPENTIN (NEURONTIN) 300 MG CAPSULE Take 2 (two) capsules (600 mg total) by mouth 3 (three) timesa day . MELOXICAM (MOBIC) 15 MG TABLET Take 1 (one) tablet (15 mg total) by mouth daily . MULTIVITAMIN (DAILY MULTIPLE) PER TABLET Take 1 tablet by mouth daily . OXYBUTYNIN (DITROPAN-XL) 10 MG 24 HR TABLET Take 10 mg by mouth daily . PANTOPRAZOLE (PROTONIX) 40 MG TABLET PAROXETINE (PAXIL) 40 MG TABLET Take 1 (one) tablet (40 mg total) by mouth every morning . POLYETHYLENE GLYCOL (GLYCOLAX) 17 GRAM/DOSE POWDER Take 17 g by mouth daily . TIZANIDINE (ZANAFLEX) 2 MG TABLET Take 1 (one) tablet (2 mg total) by mouth 3 (three) times a day . Modified Medications No medications on file Discontinued Medications No medications on file Review of Systems Constitutional: Negative for appetite change, chills, diaphoresis, fatigue, fever and unexpected weight change. Respiratory: Negative for shortness of breath and wheezing. Cardiovascular: Negative for chest pain and palpitations. Musculoskeletal: Negative for arthralgias, back pain, joint swelling and myalgias. Skin: Negative for rash. Neurological: Negative for weakness, light-headedness, numbness and headaches. Objective BP 120/81 Pulse 75 Temp 97.4 F (36.3 C) Wt 77.4 kg (170 lb 9.6 oz) LMP 03/24/2015 SpO2 96% BMI 32.23 kg/m Physical Exam Constitutional: General: She is not in acute distress. HENT: Head: Normocephalic and atraumatic. Eyes: Conjunctiva/sclera: Conjunctivae normal. Cardiovascular: Rate and Rhythm: Normal rate and regular rhythm. Heart sounds: No murmur heard. No friction rub. No gallop. Pulmonary: Effort: Pulmonary effort is normal. Breath sounds: No wheezing, rhonchi or rales. Comments: CTAB. Musculoskeletal: General: Normal range of motion. Cervical back: Normal range of motion. Comments: R lateral hip/proximal thigh mass 6-7 cm in circumference which feels edematous without firm or distinct underlying mass beneath. No greater trochanter tenderness. No inguinal adenopathy. Skin: General: Skin is warm and dry. Neurological: General: No focal deficit present. Mental Status: She is alert. Sensory: No sensory deficit. Motor: No weakness. Psychiatric: Mood and Affect: Mood normal. Behavior: Behavior normal. Thought Content: Thought content normal. Judgment: Judgment normal. Assessment/Plan: 1. Hip mass, right First noticed months ago. Nonpainful not limiting activities of daily living. Does not bother patient however reports concerned that she and have noticed it appears to be getting larger. No prior history of cancer. Onset initially may have coincided with timing of patient's hysterectomy. Patient may have had reactive tissue buildup secondary to pressure from placement during surgery, however timing is unclear whether this is exactly what may have happened. Low suspicion for infectious etiology given patient has been afebrile without erythema or drainage. No pain over greater trochanter. Cannot rule out soft tissue mass/sarcoma although patient does not have red flag symptoms such asfever, chills, night sweats, or unexpected weight loss. Will further evaluate with ultrasound. If indicated by findings may follow-up with MRI. - US Lower Extremity Non Vascular Limited - Right; Future For any new medications prescribed today, patient was educated about indications for the medication, how to take the medication and potential side effects of the medications. Patient staffed and seen with Dr. Lynn who agrees with this plan. Return for Follow Up - at already scheduled appointment 09/14/21. documented in this [id number] History of Present illness Narrative* Thaddeus Lynn DO - 09/05/2021 10:52 AM EST I have personally seen and examined the patient independently of the resident physician. I have reviewed the history, physical, diagnosis and care plan with the resident physician, Lamonte Cortez DO. Pt presents for evaluation of enlarged area on right thigh/hip Has been present for approx 3 months or longer. Denies associated skin changes or drainage Admits to recent increase in size Denies associated pain BP 120/81 Pulse 75 Temp 97.4 F (36.3 C) Wt 77.4 kg (170 lb 9.6 oz) LMP 03/24/2015 SpO2 96% BMI 32.23 kg/m Patient appears in no apparent distress. Alert and oriented x 3. Respirations unlabored. I confirm the assessment and treatment plan: Diagnoses and all orders for this visit: Hip mass, right - US Lower Extremity Non Vascular Limited - Right; Future - I agree with recommendations given today: check US of lower extremity - I agree with plan for follow up as noted by the resident physician: with PCP later this month as scheduled - I personally examined the patient and reviewed the plan with the resident prior to patient leaving the office. * Lamonte Cortez DO - 09/05/2021 10:39 AM EST Subjective Patient ID: shay Sweeney is a 56 y.o. female. Chief Complaint Patient presents with Mass Possible hip mass. Pt states it is on her right hip. HPI R Lateral Thigh Mass Non-painful and not change in size however feels R upper leg and low back has been feeling full andboggy with associated stiffness. This is not impacting her mobility First noticed a few months ago and presumed to be a lipoma No prior Hx of cancer Previous hysterectomy may coincide with initial onset The following portions of the patient's history were reviewed and updated as appropriate: allergies, current medications, past family history, past medical history, past social history, past surgicalhistory and problem list. Patient's Medications New Prescriptions No medications on file Previous Medications ACETAMINOPHEN (TYLENOL) 325 MG TABLET Take 650 mg by mouth every 6 (six) hours as needed for pain . ALBUTEROL 90 MCG/ACTUATION INHALER Inhale 2 (two) puffs every 4 to 6 hours as needed for wheezing or shortness of breath . BUPRENORPHINE-NALOXONE (SUBOXONE) 8-[address] 1 tablet under the tongue 2 (two) times a day . BUPROPION (WELLBUTRIN XL) 150 MG 24 HR TABLET Take 1 (one) tablet (150 mg total) by mouth daily . DOCUSATE SODIUM (COLACE) 100 MG CAPSULE Take 1 capsule by mouth once as needed . FOLIC ACID (FOLVITE) 1 MG TABLET Take 1 mg by mouth daily . GABAPENTIN (NEURONTIN) 300 MG CAPSULE Take 2 (two) capsules (600 mg total) by mouth 3 (three) timesa day . MELOXICAM (MOBIC) 15 MG TABLET Take 1 (one) tablet (15 mg total) by mouth daily . MULTIVITAMIN (DAILY MULTIPLE) PER TABLET Take 1 tablet by mouth daily . OXYBUTYNIN (DITROPAN-XL) 10 MG 24 HR TABLET Take 10 mg by mouth daily . PANTOPRAZOLE (PROTONIX) 40 MG TABLET PAROXETINE (PAXIL) 40 MG TABLET Take 1 (one) tablet (40 mg total) by mouth every morning . POLYETHYLENE GLYCOL (GLYCOLAX) 17 GRAM/DOSE POWDER Take 17 g by mouth daily . TIZANIDINE (ZANAFLEX) 2 MG TABLET Take 1 (one) tablet (2 mg total) by mouth 3 (three) times a day . Modified Medications No medications on file Discontinued Medications No medications on file Review of Systems Constitutional: Negative for appetite change, chills, diaphoresis, fatigue, fever and unexpected weight change. Respiratory: Negative for shortness of breath and wheezing. Cardiovascular: Negative for chest pain and palpitations. Musculoskeletal: Negative for arthralgias, back pain, joint swelling and myalgias. Skin: Negative for rash. Neurological: Negative for weakness, light-headedness, numbness and headaches. Objective BP 120/81 Pulse 75 Temp 97.4 F (36.3 C) Wt 77.4 kg (170 lb 9.6 oz) LMP 03/24/2015 SpO2 96% BMI 32.23 kg/m Physical Exam Constitutional: General: She is not in acute distress. HENT: Head: Normocephalic and atraumatic. Eyes: Conjunctiva/sclera: Conjunctivae normal. Cardiovascular: Rate and Rhythm: Normal rate and regular rhythm. Heart sounds: No murmur heard. No friction rub. No gallop. Pulmonary: Effort: Pulmonary effort is normal. Breath sounds: No wheezing, rhonchi or rales. Comments: CTAB. Musculoskeletal: General: Normal range of motion. Cervical back: Normal range of motion. Comments: R lateral hip/proximal thigh mass 6-7 cm in circumference which feels edematous without firm or distinct underlying mass beneath. No greater trochanter tenderness. No inguinal adenopathy. Skin: General: Skin is warm and dry. Neurological: General: No focal deficit present. Mental Status: She is alert. Sensory: No sensory deficit. Motor: No weakness. Psychiatric: Mood and Affect: Mood normal. Behavior: Behavior normal. Thought Content: Thought content normal. Judgment: Judgment normal. Assessment/Plan: 1. Hip mass, right First noticed months ago. Nonpainful not limiting activities of daily living. Does not bother patient however reports concerned that she and have noticed it appears to be getting larger. No prior history of cancer. Onset initially may have coincided with timing of patient's hysterectomy. Patient may have had reactive tissue buildup secondary to pressure from placement during surgery, however timing is unclear whether this is exactly what may have happened. Low suspicion for infectious etiology given patient has been afebrile without erythema or drainage. No pain over greater trochanter. Cannot rule out soft tissue mass/sarcoma although patient does not have red flag symptoms such asfever, chills, night sweats, or unexpected weight loss. Will further evaluate with ultrasound. If indicated by findings may follow-up with MRI. - US Lower Extremity Non Vascular Limited - Right; Future For any new medications prescribed today, patient was educated about indications for the medication, how to take the medication and potential side effects of the medications. Patient staffed and seen with Dr. Lynn who agrees with this plan. Return for Follow Up - at already scheduled appointment 09/14/21. documented in this [id number] Instructions* Patient Instructions* Peter Mendoza DO - 08/30/2021 10:28 AM EST Images from the original note were not included. Neck: Exercises Introduction Here are some examples of exercises for you to try. The exercises may be suggested for a condition or for rehabilitation. Start each exercise slowly. Ease off the exercises if you start to have pain. You will be told when to start these exercises and which ones will work best for you. How to do the exercises Neck stretch 1. This stretch works best if you keep your shoulder down as you lean away from it. To help you remember to do this, start by relaxing your shoulders and lightly holding on to your thighs or your chair. 2. Tilt your head toward your shoulder and hold for 15 to 30 seconds. Let the weight of your head stretch your muscles. 3. If you would like a little added stretch, use your hand to gently and steadily pull your head toward your shoulder. For example, keeping your right shoulder down, lean your head to the left. 4. Repeat 2 to 4 times toward each shoulder. Diagonal neck stretch 1. Turn your head slightly toward the direction you will be stretching, and tilt your head diagonally toward your chest and hold for 15 to 30 seconds. 2. If you would like a little added stretch, use your hand to gently and steadily pull your head forward on the diagonal. 3. Repeat 2 to 4 times toward each side. Dorsal glide stretch The dorsal glide stretches the back of the neck. If you feel pain, do not glide so far back. Some people find this exercise easier to do while lying on their backs with an ice pack on the neck. 1. Sit or stand tall and look straight ahead. 2. Slowly tuck your chin as you glide your head backward over your body 3. Hold for a count of 6, and then relax for up to 10 seconds. 4. Repeat 8 to 12 times. Chest and shoulder stretch 1. Sit or stand tall and glide your head backward as in the dorsal glide stretch. 2. Raise both arms so that your hands are next to your ears. 3. Take a deep breath, and as you breathe out, lower your elbows down and behind your back. You will feel your shoulder blades slide down and together, and at the same time you will feel a stretch across your chest and the front of your shoulders. 4. Hold for about 6 seconds, and then relax for up to 10 seconds. 5. Repeat 8 to 12 times. Strengthening: Hands on head 1. Move your head backward, forward, and side to side against gentle pressure from your hands, holding each position for about 6 seconds. 2. Repeat 8 to 12 times. Follow-up care is a gauthier part of your treatment and safety. Be sure to make and go to all appointments, and call your doctor if you are having problems. It's also a good idea to know your test resultsand keep a list of the medicines you take. Where can you learn more? Log into your personal health record on [email or web address] and enter P975 in the Education box to learn more about Neck: Exercises. Current as of: April 21, 2021 Content Version: 13.0 [employer]. Care instructions adapted under license by your healthcare professional. If you have questions about a medical condition or this instruction, always ask your healthcare professional. [employer] disclaims any warranty or liability for your use of this information. documented in this [id number] Instructions* Patient Instructions* Peter Mendoza DO - 08/30/2021 10:28 AM EST Images from the original note were not included. Neck: Exercises Introduction Here are some examples of exercises for you to try. The exercises may be suggested for a condition or for rehabilitation. Start each exercise slowly. Ease off the exercises if you start to have pain. You will be told when to start these exercises and which ones will work best for you. How to do the exercises Neck stretch 1. This stretch works best if you keep your shoulder down as you lean away from it. To help you remember to do this, start by relaxing your shoulders and lightly holding on to your thighs or your chair. 2. Tilt your head toward your shoulder and hold for 15 to 30 seconds. Let the weight of your head stretch your muscles. 3. If you would like a little added stretch, use your hand to gently and steadily pull your head toward your shoulder. For example, keeping your right shoulder down, lean your head to the left. 4. Repeat 2 to 4 times toward each shoulder. Diagonal neck stretch 1. Turn your head slightly toward the direction you will be stretching, and tilt your head diagonally toward your chest and hold for 15 to 30 seconds. 2. If you would like a little added stretch, use your hand to gently and steadily pull your head forward on the diagonal. 3. Repeat 2 to 4 times toward each side. Dorsal glide stretch The dorsal glide stretches the back of the neck. If you feel pain, do not glide so far back. Some people find this exercise easier to do while lying on their backs with an ice pack on the neck. 1. Sit or stand tall and look straight ahead. 2. Slowly tuck your chin as you glide your head backward over your body 3. Hold for a count of 6, and then relax for up to 10 seconds. 4. Repeat 8 to 12 times. Chest and shoulder stretch 1. Sit or stand tall and glide your head backward as in the dorsal glide stretch. 2. Raise both arms so that your hands are next to your ears. 3. Take a deep breath, and as you breathe out, lower your elbows down and behind your back. You will feel your shoulder blades slide down and together, and at the same time you will feel a stretch across your chest and the front of your shoulders. 4. Hold for about 6 seconds, and then relax for up to 10 seconds. 5. Repeat 8 to 12 times. Strengthening: Hands on head 1. Move your head backward, forward, and side to side against gentle pressure from your hands, holding each position for about 6 seconds. 2. Repeat 8 to 12 times. Follow-up care is a gauthier part of your treatment and safety. Be sure to make and go to all appointments, and call your doctor if you are having problems. It's also a good idea to know your test resultsand keep a list of the medicines you take. Where can you learn more? Log into your personal health record on [email or web address] and enter P975 in the Education box to learn more about Neck: Exercises. Current as of: April 21, 2021 Content Version: 13.0 [employer]. Care instructions adapted under license by your healthcare professional. If you have questions about a medical condition or this instruction, always ask your healthcare professional. [employer] disclaims any warranty or liability for your use of this information. documented in this [id number] History of Present illness Narrative* Lon Bhatti DO - 08/30/2021 10:20 AM EST Physical Exam Patient appears well, in no apparent distress. Alert, pleasant and cooperative. Vital signs reviewed and documented in vital signs section. I have personally seen and examined the patient independently of the resident physician. I have reviewed the history, physical, diagnosis and care plan with the resident physician, Peter Mendoza DO. I confirm the assessment and treatment plan: Diagnoses and all orders for this visit: Chronic midline low back pain without sciatica DDD (degenerative disc disease), cervical Other orders - tiZANidine (ZANAFLEX) 2 MG tablet; Take 1 (one) tablet (2 mg total) by mouth 3 (three) times a day for 10 days . *This is an incomplete note, awaiting for resident completion for attending sign off* * Peter Mendoza DO - 08/30/2021 9:00 AM EST Subjective Patient ID: shay Sweeney is a 56 y.o. female. Chief Complaint Patient presents with Back Pain Neck Pain Shoulder Pain HPI - lower back feels pretty good today - Neck is more bothersome, she almost missed work yesterday - still taking flexeril, neurontin, tylenol, and mobic, but has also used ibuprofen - no numbness or weakness - no radiation of pain. - still has pain in right shoulder as well - reportedly had MRI in April, but this is not seen in our chart - Of note patient also reports increasing dyspnea on exertion over past few weeks Still smokes daily Thinks she may have wheezing as well Symptoms only occur with exertion, not associated with chest pain, and do not occur at rest. No increase leg swelling The following portions of the patient's history were reviewed and updated as appropriate: allergies, current medications, past family history, past medical history, past social history, past surgicalhistory and problem list. Patient's Medications New Prescriptions TIZANIDINE (ZANAFLEX) 2 MG TABLET Take 1 (one) tablet (2 mg total) by mouth 3 (three) times a day . Previous Medications ACETAMINOPHEN (TYLENOL) 325 MG TABLET Take 650 mg by mouth every 6 (six) hours as needed for pain . BUPRENORPHINE-NALOXONE (SUBOXONE) 8-[address] 1 tablet under the tongue 2 (two) times a day . BUPROPION (WELLBUTRIN XL) 150 MG 24 HR TABLET Take 1 (one) tablet (150 mg total) by mouth daily . DOCUSATE SODIUM (COLACE) 100 MG CAPSULE Take 1 capsule by mouth once as needed . FOLIC ACID (FOLVITE) 1 MG TABLET Take 1 mg by mouth daily . GABAPENTIN (NEURONTIN) 300 MG CAPSULE Take 2 (two) capsules (600 mg total) by mouth 3 (three) timesa day . MELOXICAM (MOBIC) 15 MG TABLET Take 1 (one) tablet (15 mg total) by mouth daily . MULTIVITAMIN (DAILY MULTIPLE) PER TABLET Take 1 tablet by mouth daily . OXYBUTYNIN (DITROPAN-XL) 10 MG 24 HR TABLET Take 10 mg by mouth daily . PANTOPRAZOLE (PROTONIX) 40 MG TABLET PAROXETINE (PAXIL) 40 MG TABLET Take 1 (one) tablet (40 mg total) by mouth every morning . POLYETHYLENE GLYCOL (GLYCOLAX) 17 GRAM/DOSE POWDER Take 17 g by mouth daily . Modified Medications No medications on file Discontinued Medications BUDESONIDE (ENTOCORT EC) 3 MG 24 HR CAPSULE Take 9 mg by mouth daily . CYCLOBENZAPRINE (FLEXERIL) 10 MG TABLET Take 0.5 (one-half) tablet (5 mg total) by mouth 3 (three) times a day . Review of Systems Constitutional: Negative for fever. Respiratory: Positive for shortness of breath and wheezing. Negative for cough. Musculoskeletal: Positive for arthralgias, back pain and neck pain. Objective BP 127/80 Pulse 72 Temp 97.7 F (36.5 C) Wt 78.4 kg (172 lb 12.8 oz) LMP 03/24/2015 SpO2 93% BMI 32.65 kg/m Physical Exam Constitutional: Appearance: Normal appearance. HENT: Head: Normocephalic and atraumatic. Right Ear: External ear normal. Left Ear: External ear normal. Nose: Comments: Surgical Mask in place Mouth/Throat: Comments: Surgical Mask in place Eyes: Pupils: Pupils are equal, round, and reactive to light. Cardiovascular: Rate and Rhythm: Normal rate and regular rhythm. Pulses: Normal pulses. Heart sounds: Normal heart sounds. Pulmonary: Effort: Pulmonary effort is normal. Prolonged expiration present. No respiratory distress. Breath sounds: Normal breath sounds. No wheezing. Abdominal: General: Abdomen is flat. Palpations: Abdomen is soft. Neurological: Mental Status: She is alert. Osteopathic Medical Exam: Head: Occipital-[place]: Extension: SLRR Cervical/Neck: Cervical Exam AA: Rotated L C3: Left: FRS C5: Left: FRS Thoracic: T1: Right: FRS T6: Left: ERS T10: Left: FRS Lumbar: Osteopathic Lumbar Exam: L5: Right: ERS Sacrum: Sacral Torsion: L on R Pelvis: Right Innominate posterior. Lower Extremity: Osteopathic Exam Femoral - Tibial Joint: Internal Rotation Dysfunction: Left: Positive Treatment Comments: Left hypertonic hamstring Upper Extremity: Shoulder: SCJ Dysfunction: Right: Inferior G-H Dysfunction: Internal Rotation: Right: Positive Ribs: 1: Exhalation: Right Abdominal and Visceral: Abdominal fascial restrictions: Superior Mesenteric Ganglion and Celiac Ganglion Assessment/Plan: Diagnoses and all orders for this visit: Chronic midline low back pain without sciatica DDD (degenerative disc disease), cervical Symptoms responding well to omt Recommend cervical stretches provdied on AVS Patient would benefit from PT as well, but is unable to afford the time right now. Follow up In 2 weeks, and then consider spacing treatments to q 4 weeks. DC Flexeril as it is making patient too drowsy, start Zanaflex - tiZANidine (ZANAFLEX) 2 MG tablet; Take 1 (one) tablet (2 mg total) by mouth 3 (three) times a day . Dyspnea on exertion Suspect patient may be developing COPD symptoms given longtime smoking history and prolonged expiration Will trial rescue inhaler and order PFTs - albuterol 90 mcg/actuation inhaler; Inhale 2 (two) puffs every 4 to 6 hours as needed for wheezing or shortness of breath . 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 - Mammography Screening Marques Bilateral; Future Somatic dysfunction of cervical region Somatic dysfunction of rib cage region Somatic dysfunction of pelvis region Somatic dysfunction of upper extremity Somatic dysfunction of head region Somatic dysfunction of thoracic region Somatic dysfunction of lumbar region Somatic dysfunction of sacral region Somatic dysfunction of lower extremity Somatic Dysfunction Abdomen OMT applied for patient, following informed consent. Modality (-ies) utilized: Stills, BLT, MFR Pt tolerated the OMT as follows: without complication Response in symptomatology reported by patient: decrease pain, improved symptoms Osteopathic medical exam findings after recheck: decreased tenderness, improved ROM, decreased tissue hypertonicity For any new medications prescribed today, patient was educated about indications for the medication, how to take the medication and potential side effects of the medications. Patient staffed and seen with Dr. Bhatti who agrees with this plan. Return in about 13 days (around 09/12/2021) for Follow Up Back pain/SOB. Peter Mendoza DO [facility] PGY-3 Note: To expedite correspondence, this note was generated by [employer] voice recognition software. Some grammatical or spelling errors may occur using the system. documented in this [id number] History of Present illness Narrative* Lon Bhatti DO - 08/30/2021 10:20 AM EST Physical Exam Patient appears well, in no apparent distress. Alert, pleasant and cooperative. Vital signs reviewed and documented in vital signs section. I have personally seen and examined the patient independently of the resident physician. I have reviewed the history, physical, diagnosis and care plan with the resident physician, Peter Mendoza DO. I confirm the assessment and treatment plan: Diagnoses and all orders for this visit: Chronic midline low back pain without sciatica DDD (degenerative disc disease), cervical Dyspnea on exertion - albuterol 90 mcg/actuation inhaler; Inhale 2 (two) puffs every 4 to 6 hours as needed for wheezing or shortness of breath . - PFT spirometry with pre and post bronchodilator; Future 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 - Mammography Screening Marques Bilateral; Future Somatic dysfunction of head region Somatic dysfunction of cervical region Somatic dysfunction of thoracic region Somatic dysfunction of rib cage region Somatic dysfunction of lumbar region Somatic dysfunction of pelvis region Somatic dysfunction of sacral region Somatic dysfunction of upper extremity Somatic dysfunction of lower extremity Somatic dysfunction of abdominal region Other orders - tiZANidine (ZANAFLEX) 2 MG tablet; Take 1 (one) tablet (2 mg total) by mouth 3 (three) times a day . * Peter Mendoza DO - 08/30/2021 9:00 AM EST Subjective Patient ID: shay Sweeney is a 56 y.o. female. Chief Complaint Patient presents with Back Pain Neck Pain Shoulder Pain HPI - lower back feels pretty good today - Neck is more bothersome, she almost missed work yesterday - still taking flexeril, neurontin, tylenol, and mobic, but has also used ibuprofen - no numbness or weakness - no radiation of pain. - still has pain in right shoulder as well - reportedly had MRI in April, but this is not seen in our chart - Of note patient also reports increasing dyspnea on exertion over past few weeks Still smokes daily Thinks she may have wheezing as well Symptoms only occur with exertion, not associated with chest pain, and do not occur at rest. No increase leg swelling The following portions of the patient's history were reviewed and updated as appropriate: allergies, current medications, past family history, past medical history, past social history, past surgicalhistory and problem list. Patient's Medications New Prescriptions TIZANIDINE (ZANAFLEX) 2 MG TABLET Take 1 (one) tablet (2 mg total) by mouth 3 (three) times a day . Previous Medications ACETAMINOPHEN (TYLENOL) 325 MG TABLET Take 650 mg by mouth every 6 (six) hours as needed for pain . BUPRENORPHINE-NALOXONE (SUBOXONE) 8-[address] 1 tablet under the tongue 2 (two) times a day . BUPROPION (WELLBUTRIN XL) 150 MG 24 HR TABLET Take 1 (one) tablet (150 mg total) by mouth daily . DOCUSATE SODIUM (COLACE) 100 MG CAPSULE Take 1 capsule by mouth once as needed . FOLIC ACID (FOLVITE) 1 MG TABLET Take 1 mg by mouth daily . GABAPENTIN (NEURONTIN) 300 MG CAPSULE Take 2 (two) capsules (600 mg total) by mouth 3 (three) timesa day . MELOXICAM (MOBIC) 15 MG TABLET Take 1 (one) tablet (15 mg total) by mouth daily . MULTIVITAMIN (DAILY MULTIPLE) PER TABLET Take 1 tablet by mouth daily . OXYBUTYNIN (DITROPAN-XL) 10 MG 24 HR TABLET Take 10 mg by mouth daily . PANTOPRAZOLE (PROTONIX) 40 MG TABLET PAROXETINE (PAXIL) 40 MG TABLET Take 1 (one) tablet (40 mg total) by mouth every morning . POLYETHYLENE GLYCOL (GLYCOLAX) 17 GRAM/DOSE POWDER Take 17 g by mouth daily . Modified Medications No medications on file Discontinued Medications BUDESONIDE (ENTOCORT EC) 3 MG 24 HR CAPSULE Take 9 mg by mouth daily . CYCLOBENZAPRINE (FLEXERIL) 10 MG TABLET Take 0.5 (one-half) tablet (5 mg total) by mouth 3 (three) times a day . Review of Systems Constitutional: Negative for fever. Respiratory: Positive for shortness of breath and wheezing. Negative for cough. Musculoskeletal: Positive for arthralgias, back pain and neck pain. Objective BP 127/80 Pulse 72 Temp 97.7 F (36.5 C) Wt 78.4 kg (172 lb 12.8 oz) LMP 03/24/2015 SpO2 93% BMI 32.65 kg/m Physical Exam Constitutional: Appearance: Normal appearance. HENT: Head: Normocephalic and atraumatic. Right Ear: External ear normal. Left Ear: External ear normal. Nose: Comments: Surgical Mask in place Mouth/Throat: Comments: Surgical Mask in place Eyes: Pupils: Pupils are equal, round, and reactive to light. Cardiovascular: Rate and Rhythm: Normal rate and regular rhythm. Pulses: Normal pulses. Heart sounds: Normal heart sounds. Pulmonary: Effort: Pulmonary effort is normal. Prolonged expiration present. No respiratory distress. Breath sounds: Normal breath sounds. No wheezing. Abdominal: General: Abdomen is flat. Palpations: Abdomen is soft. Neurological: Mental Status: She is alert. Osteopathic Medical Exam: Head: Occipital-[place]: Extension: SLRR Cervical/Neck: Cervical Exam AA: Rotated L C3: Left: FRS C5: Left: FRS Thoracic: T1: Right: FRS T6: Left: ERS T10: Left: FRS Lumbar: Osteopathic Lumbar Exam: L5: Right: ERS Sacrum: Sacral Torsion: L on R Pelvis: Right Innominate posterior. Lower Extremity: Osteopathic Exam Femoral - Tibial Joint: Internal Rotation Dysfunction: Left: Positive Treatment Comments: Left hypertonic hamstring Upper Extremity: Shoulder: SCJ Dysfunction: Right: Inferior G-H Dysfunction: Internal Rotation: Right: Positive Ribs: 1: Exhalation: Right Abdominal and Visceral: Abdominal fascial restrictions: Superior Mesenteric Ganglion and Celiac Ganglion Assessment/Plan: Diagnoses and all orders for this visit: Chronic midline low back pain without sciatica DDD (degenerative disc disease), cervical Symptoms responding well to omt Recommend cervical stretches provdied on AVS Patient would benefit from PT as well, but is unable to afford the time right now. Follow up In 2 weeks, and then consider spacing treatments to q 4 weeks. DC Flexeril as it is making patient too drowsy, start Zanaflex - tiZANidine (ZANAFLEX) 2 MG tablet; Take 1 (one) tablet (2 mg total) by mouth 3 (three) times a day . Dyspnea on exertion Suspect patient may be developing COPD symptoms given longtime smoking history and prolonged expiration Will trial rescue inhaler and order PFTs - albuterol 90 mcg/actuation inhaler; Inhale 2 (two) puffs every 4 to 6 hours as needed for wheezing or shortness of breath . 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 - Mammography Screening Marques Bilateral; Future Somatic dysfunction of cervical region Somatic dysfunction of rib cage region Somatic dysfunction of pelvis region Somatic dysfunction of upper extremity Somatic dysfunction of head region Somatic dysfunction of thoracic region Somatic dysfunction of lumbar region Somatic dysfunction of sacral region Somatic dysfunction of lower extremity Somatic Dysfunction Abdomen OMT applied for patient, following informed consent. Modality (-ies) utilized: Stills, BLT, MFR Pt tolerated the OMT as follows: without complication Response in symptomatology reported by patient: decrease pain, improved symptoms Osteopathic medical exam findings after recheck: decreased tenderness, improved ROM, decreased tissue hypertonicity For any new medications prescribed today, patient was educated about indications for the medication, how to take the medication and potential side effects of the medications. Patient staffed and seen with Dr. Bhatti who agrees with this plan. Return in about 13 days (around 09/12/2021) for Follow Up Back pain/SOB. Peter Mendoza DO [facility] PGY-3 Note: To expedite correspondence, this note was generated by [employer] voice recognition software. Some grammatical or spelling errors may occur using the system. documented in this [id number] History of Present illness Narrative* Thaddeus Lynn DO - 08/12/2021 9:44 AM EDT I have personally seen and examined the patient independently of the resident physician. I have reviewed the history, physical, diagnosis and care plan with the resident physician, Peter Mendoza DO. Pt presents for evaluation and management of back pain Admits to benefit from OMT in the past BP 138/74 Pulse 71 Temp 97.6 F (36.4 C) Ht 5' 1 Wt 80.3 kg (177 lb) LMP 03/24/2015 SpO2 98% BMI 33.44 kg/m Patient appears in no apparent distress. Alert and oriented x 3. Respirations unlabored. I confirm the assessment and treatment plan: Diagnoses and all orders for this visit: Chronic midline low back pain without sciatica Somatic dysfunction of head region Somatic dysfunction of cervical region Somatic dysfunction of thoracic region Somatic dysfunction of rib cage region Somatic dysfunction of lumbar region Somatic dysfunction of pelvis region Somatic dysfunction of sacral region Somatic dysfunction of upper extremity Somatic dysfunction of lower extremity - I agree with recommendations given today for management of back pain OMT applied to somatic dysfunctions as noted - I agree with plan for follow up as noted by the resident physician: Return for Follow Up 2-3 weeks for back pain/omt. - I personally examined the patient and reviewed the plan with the resident prior to patient leaving the office. * Peter Mendoza DO - 08/12/2021 8:20 AM EDT Subjective Patient ID: shay Sweeney is a 56 y.o. female. Chief Complaint Patient presents with Back Pain omt HPI Back Pain - lower back hurts today. Reports improvement with OMT last treatment - still taking flexeril, neurontin, tylenol, and mobic, but has also used ibuprofen - and under neck - no numbness or weakness - no radiation of pain. The following portions of the patient's history were reviewed and updated as appropriate: allergies, current medications, past family history, past medical history, past social history, past surgicalhistory and problem list. Patient's Medications New Prescriptions No medications on file Previous Medications ACETAMINOPHEN (TYLENOL) 325 MG TABLET Take 650 mg by mouth every 6 (six) hours as needed for pain . BUDESONIDE (ENTOCORT EC) 3 MG 24 HR CAPSULE Take 9 mg by mouth daily . BUPRENORPHINE-NALOXONE (SUBOXONE) 8-[address] 1 tablet under the tongue 2 (two) times a day . BUPROPION (WELLBUTRIN XL) 150 MG 24 HR TABLET Take 1 (one) tablet (150 mg total) by mouth daily . CYCLOBENZAPRINE (FLEXERIL) 10 MG TABLET Take 0.5 (one-half) tablet (5 mg total) by mouth 3 (three) times a day . DOCUSATE SODIUM (COLACE) 100 MG CAPSULE Take 1 capsule by mouth once as needed . FOLIC ACID (FOLVITE) 1 MG TABLET Take 1 mg by mouth daily . GABAPENTIN (NEURONTIN) 300 MG CAPSULE Take 2 (two) capsules (600 mg total) by mouth 3 (three) timesa day . MELOXICAM (MOBIC) 15 MG TABLET Take 1 (one) tablet (15 mg total) by mouth daily . MULTIVITAMIN (DAILY MULTIPLE) PER TABLET Take 1 tablet by mouth daily . OXYBUTYNIN (DITROPAN-XL) 10 MG 24 HR TABLET Take 10 mg by mouth daily . PANTOPRAZOLE (PROTONIX) 40 MG TABLET PAROXETINE (PAXIL) 40 MG TABLET Take 1 (one) tablet (40 mg total) by mouth every morning . POLYETHYLENE GLYCOL (GLYCOLAX) 17 GRAM/DOSE POWDER Take 17 g by mouth daily . Modified Medications No medications on file Discontinued Medications IBUPROFEN (ADVIL,MOTRIN) 800 MG TABLET Take 1 tablet by mouth daily as needed . Review of Systems Constitutional: Negative for fever. Eyes: Negative for visual disturbance. Respiratory: Negative for shortness of breath. Cardiovascular: Negative for chest pain. Gastrointestinal: Negative for abdominal pain. Genitourinary: Negative for dysuria. Skin: Negative for rash. Neurological: Negative for syncope. Objective BP 138/74 Pulse 71 Temp 97.6 F (36.4 C) Ht 5' 1 Wt 80.3 kg (177 lb) LMP 03/24/2015 SpO2 98% BMI 33.44 kg/m Physical Exam Constitutional: Appearance: Normal appearance. HENT: Head: Normocephalic and atraumatic. Right Ear: External ear normal. Left Ear: External ear normal. Nose: Comments: Surgical Mask in place Mouth/Throat: Comments: Surgical Mask in place Eyes: Pupils: Pupils are equal, round, and reactive to light. Cardiovascular: Rate and Rhythm: Normal rate and regular rhythm. Pulses: Normal pulses. Heart sounds: Normal heart sounds. Pulmonary: Effort: Pulmonary effort is normal. No respiratory distress. Breath sounds: Normal breath sounds. Neurological: Mental Status: She is alert. Osteopathic Medical Exam: Head: Occipital-[place]: Extension: SRRL Cervical/Neck: Cervical Exam AA: Rotated L C7: Right: FRS Thoracic: T3: Right: FRS T10: Right: FRS Lumbar: Osteopathic Lumbar Exam: L5: Right: FRS Sacrum: Sacral Torsion: L on R Pelvis: Right Innominate anterior and outflare. Lower Extremity: Osteopathic Exam Hip: Abduction Dysfunction: Right: Positive Upper Extremity: General Testing: Tight pec minor: Right: Positive Altered scapular kinetics: Right: Positive Ribs: 6: Inhalation: Left Assessment/Plan: Diagnoses and all orders for this visit: Chronic midline low back pain without sciatica Continues to improve with OMT Recommend stretching right TFL due to persistent tenderness Educated patient to DC her ibuprofen and just take Mobic and tylenol as needed, continue PPI for gastric protection Somatic dysfunction of head region Somatic dysfunction of cervical region Somatic dysfunction of thoracic region Somatic dysfunction of rib cage region Somatic dysfunction of lumbar region Somatic dysfunction of pelvis region Somatic dysfunction of sacral region Somatic dysfunction of upper extremity Somatic dysfunction of lower extremity OMT applied for patient, following informed consent. Modality (-ies) utilized: soft tissue, stills, C/S, BLT Pt tolerated the OMT as follows: without complication Response in symptomatology reported by patient: decrease pain, improved symptoms Osteopathic medical exam findings after recheck: decreased tenderness, improved ROM, decreased tissue hypertonicity For any new medications prescribed today, patient was educated about indications for the medication, how to take the medication and potential side effects of the medications. Patient staffed and seen with Dr. Lynn who agrees with this plan. Return for Follow Up 2-3 weeks for back pain/omt. Peter Mendoza DO [facility] PGY-3 Note: To expedite correspondence, this note was generated by [employer] voice recognition software. Some grammatical or spelling errors may occur using the system. documented in this [id number] Instructions* Patient Instructions* Peter Mendoza DO - 08/12/2021 9:34 AM EDT Stretch tensor fasciae latae daily starting tomorrow [email or web address] documented in this [id number] History of Present illness Narrative* Vikas Bermudez DO - 07/07/2021 4:18 PM EDT I have personally seen and examined the patient independently of the resident physician. I have reviewed the history, physical, diagnosis and care plan with the resident physician, Peter Mendoza DO. I confirm the assessment and treatment plan: Diagnoses and all orders for this visit: Chronic midline low back pain without sciatica Depression, unspecified depression type Comments: mood well controlled on Paxil refilled today, pt will return to discuss further Orders: - PARoxetine (PAXIL) 40 MG tablet; Take 1 (one) tablet (40 mg total) by mouth every morning . Somatic dysfunction of thoracic region Somatic dysfunction of rib cage region Somatic dysfunction of lumbar region Somatic dysfunction of pelvis region Somatic dysfunction of sacral region Influenza vaccination administered at current visit PHYSICAL EXAMINATION: General: awake alert and oriented. No acute distress. HENT: Normocephalic, atraumatic, EOMI. NEURO: CN 2-12 Grossly intact. No focal deficits noted. PSYCH: Mood and affect appropriate and congruent. No active SI or HI. No evidence of psychosis. Agree with resident plan to treat with OMT in office today Agree with resident plan to consider initiation of bupropion for smoking cessation with 4 week F/U Agree with resident plan to continue on the paroxetine therapy for the depression/anxiety. *This is not a complete note, awaiting resident completion prior to attending sign off* * Peter Mendoza DO - 07/07/2021 3:38 PM EDT Subjective Patient ID: shay Sweeney is a 55 y.o. female. Chief Complaint Patient presents with Manipulation Pt states she had manipulation done last month and since then Left lower back and Right neck/shoulder have been hurting worse. HPI Back Pain - Was feeling good after last treatment until patient got massage and has had a flair since. - lower back hurts today - and under neck - no numbness or weakness - no radiation of pain. Tobacco use Mood Interested in Wellbutrin for smoking cessation Smokes 1/2 PPD No history of seizures Has also felt more depressed lately as patient has lost several close friends, and relatives lately. She denies any suicidal or homicidal ideation. She currently takes Paxil for her depression, and says that it overall controls her mood well. The following portions of the patient's history were reviewed and updated as appropriate: allergies, current medications, past family history, past medical history, past social history, past surgicalhistory and problem list. Patient's Medications New Prescriptions BUPROPION (WELLBUTRIN XL) 150 MG 24 HR TABLET Take 1 (one) tablet (150 mg total) by mouth daily . Previous Medications ACETAMINOPHEN (TYLENOL) 325 MG TABLET Take 650 mg by mouth every 6 (six) hours as needed for pain . BUDESONIDE (ENTOCORT EC) 3 MG 24 HR CAPSULE Take 9 mg by mouth daily . BUPRENORPHINE-NALOXONE (SUBOXONE) 8-[address] 1 tablet under the tongue 2 (two) times a day . CYCLOBENZAPRINE (FLEXERIL) 10 MG TABLET Take 0.5 (one-half) tablet (5 mg total) by mouth 3 (three) times a day . FOLIC ACID (FOLVITE) 1 MG TABLET Take 1 mg by mouth daily . GABAPENTIN (NEURONTIN) 300 MG CAPSULE Take 2 (two) capsules (600 mg total) by mouth 3 (three) timesa day . MELOXICAM (MOBIC) 15 MG TABLET Take 1 (one) tablet (15 mg total) by mouth daily . MULTIVITAMIN (DAILY MULTIPLE) PER TABLET Take 1 tablet by mouth daily . OXYBUTYNIN (DITROPAN-XL) 10 MG 24 HR TABLET Take 10 mg by mouth daily . PANTOPRAZOLE (PROTONIX) 40 MG TABLET POLYETHYLENE GLYCOL (GLYCOLAX) 17 GRAM/DOSE POWDER Take 17 g by mouth daily . Modified Medications Modified Medication Previous Medication PAROXETINE (PAXIL) 40 MG TABLET PARoxetine (PAXIL) 40 MG tablet Take 1 (one) tablet (40 mg total) by mouth every morning . Take 1 (one) tablet (40 mg total) by mouth every morning . Discontinued Medications No medications on file Review of Systems Musculoskeletal: Positive for arthralgias and back pain. Neurological: Negative for weakness and numbness. Objective BP 133/85 Pulse 86 Temp 96.8 F (36 C) (Temporal) Resp 16 Wt 80.6 kg (177 lb 12.8 oz) LMP 03/24/2015 SpO2 97% No BMI 33.60 kg/m Physical Exam Constitutional: Appearance: Normal appearance. HENT: Head: Normocephalic and atraumatic. Right Ear: External ear normal. Left Ear: External ear normal. Nose: Comments: Surgical Mask in place Mouth/Throat: Comments: Surgical Mask in place Eyes: Pupils: Pupils are equal, round, and reactive to light. Cardiovascular: Rate and Rhythm: Normal rate and regular rhythm. Pulses: Normal pulses. Heart sounds: Normal heart sounds. Pulmonary: Effort: Pulmonary effort is normal. No respiratory distress. Breath sounds: Normal breath sounds. Neurological: Mental Status: She is alert. Osteopathic Medical Exam: Thoracic: T12: Right: ERS Lumbar: Osteopathic Lumbar Exam: L4: Right: FRS L5: Right: ERS Sacrum: Sacral Torsion: L on R Pelvis: Right Innominate posterior. Ribs: 7: Inhalation: Left Assessment/Plan: Diagnoses and all orders for this visit: Chronic midline low back pain without sciatica Responding well to OMT. I continue to recommend physical therapy Would benefit from further treatment Encouraged her to continue to work on her low back stretches and exercises. Depression, unspecified depression type Tobacco Use Comments: Historically well controlled on Paxil, but over the past month her mood has been worse secondary tosignificant life stressors. Is interested in augmenting with Wellbutrin due to additional aid of smoking cessation. Will refill Paxil and start Wellbutrin today. Orders: - PARoxetine (PAXIL) 40 MG tablet; Take 1 (one) tablet (40 mg total) by mouth every morning . - buPROPion (Wellbutrin XL) 150 MG 24 hr tablet; Take 1 (one) tablet (150 mg total) by mouth daily . Influenza vaccination administered at current visit - Influenza IIV4 3yo or >,Fluzone Quad Somatic dysfunction of thoracic region Somatic dysfunction of rib cage region Somatic dysfunction of lumbar region Somatic dysfunction of pelvis region Somatic dysfunction of sacral region OMT applied for patient, following informed consent. Modality (-ies) utilized: MFR, Stills, BLT, FPR Pt tolerated the OMT as follows: without complication Response in symptomatology reported by patient: decrease pain, improved symptoms Osteopathic medical exam findings after recheck: decreased tenderness, improved ROM, decreased tissue hypertonicity For any new medications prescribed today, patient was educated about indications for the medication, how to take the medication and potential side effects of the medications. Patient staffed and seen with Dr. Bermudez who agrees with this plan. Return in about 4 weeks (around 08/04/2021) for Follow Up Back Pain. Peter Mendoza DO [facility] PGY-3 Note: To expedite correspondence, this note was generated by [employer] voice recognition software. Some grammatical or spelling errors may occur using the system. documented in this [id number] History of Present illness Narrative* Vikas Bermudez DO - 07/07/2021 4:18 PM EDT I have personally seen and examined the patient independently of the resident physician. I have reviewed the history, physical, diagnosis and care plan with the resident physician, Peter Mendoza DO. I confirm the assessment and treatment plan: Diagnoses and all orders for this visit: Chronic midline low back pain without sciatica Depression, unspecified depression type Comments: mood well controlled on Paxil refilled today, pt will return to discuss further Orders: - PARoxetine (PAXIL) 40 MG tablet; Take 1 (one) tablet (40 mg total) by mouth every morning . - buPROPion (Wellbutrin XL) 150 MG 24 hr tablet; Take 1 (one) tablet (150 mg total) by mouth daily . Tobacco use disorder Somatic dysfunction of thoracic region Influenza vaccination administered at current visit - Influenza IIV4 3yo or >,Fluzone Quad Somatic dysfunction of rib cage region Somatic dysfunction of lumbar region Somatic dysfunction of pelvis region Somatic dysfunction of sacral region PHYSICAL EXAMINATION: General: awake alert and oriented. No acute distress. HENT: Normocephalic, atraumatic, EOMI. NEURO: CN 2-12 Grossly intact. No focal deficits noted. PSYCH: Mood and affect appropriate and congruent. No active SI or HI. No evidence of psychosis. Agree with resident plan to treat with OMT in office today Agree with resident plan to consider initiation of bupropion for smoking cessation with 4 week F/U Agree with resident plan to continue on the paroxetine therapy for the depression/anxiety. * Peter Mendoza DO - 07/07/2021 3:38 PM EDT Subjective Patient ID: shay Sweeney is a 55 y.o. female. Chief Complaint Patient presents with Manipulation Pt states she had manipulation done last month and since then Left lower back and Right neck/shoulder have been hurting worse. HPI Back Pain - Was feeling good after last treatment until patient got massage and has had a flair since. - lower back hurts today - and under neck - no numbness or weakness - no radiation of pain. Tobacco use Mood Interested in Wellbutrin for smoking cessation Smokes 1/2 PPD No history of seizures Has also felt more depressed lately as patient has lost several close friends, and relatives lately. She denies any suicidal or homicidal ideation. She currently takes Paxil for her depression, and says that it overall controls her mood well. The following portions of the patient's history were reviewed and updated as appropriate: allergies, current medications, past family history, past medical history, past social history, past surgicalhistory and problem list. Patient's Medications New Prescriptions BUPROPION (WELLBUTRIN XL) 150 MG 24 HR TABLET Take 1 (one) tablet (150 mg total) by mouth daily . Previous Medications ACETAMINOPHEN (TYLENOL) 325 MG TABLET Take 650 mg by mouth every 6 (six) hours as needed for pain . BUDESONIDE (ENTOCORT EC) 3 MG 24 HR CAPSULE Take 9 mg by mouth daily . BUPRENORPHINE-NALOXONE (SUBOXONE) 8-[address] 1 tablet under the tongue 2 (two) times a day . CYCLOBENZAPRINE (FLEXERIL) 10 MG TABLET Take 0.5 (one-half) tablet (5 mg total) by mouth 3 (three) times a day . FOLIC ACID (FOLVITE) 1 MG TABLET Take 1 mg by mouth daily . GABAPENTIN (NEURONTIN) 300 MG CAPSULE Take 2 (two) capsules (600 mg total) by mouth 3 (three) timesa day . MELOXICAM (MOBIC) 15 MG TABLET Take 1 (one) tablet (15 mg total) by mouth daily . MULTIVITAMIN (DAILY MULTIPLE) PER TABLET Take 1 tablet by mouth daily . OXYBUTYNIN (DITROPAN-XL) 10 MG 24 HR TABLET Take 10 mg by mouth daily . PANTOPRAZOLE (PROTONIX) 40 MG TABLET POLYETHYLENE GLYCOL (GLYCOLAX) 17 GRAM/DOSE POWDER Take 17 g by mouth daily . Modified Medications Modified Medication Previous Medication PAROXETINE (PAXIL) 40 MG TABLET PARoxetine (PAXIL) 40 MG tablet Take 1 (one) tablet (40 mg total) by mouth every morning . Take 1 (one) tablet (40 mg total) by mouth every morning . Discontinued Medications No medications on file Review of Systems Musculoskeletal: Positive for arthralgias and back pain. Neurological: Negative for weakness and numbness. Objective BP 133/85 Pulse 86 Temp 96.8 F (36 C) (Temporal) Resp 16 Wt 80.6 kg (177 lb 12.8 oz) LMP 03/24/2015 SpO2 97% No BMI 33.60 kg/m Physical Exam Constitutional: Appearance: Normal appearance. HENT: Head: Normocephalic and atraumatic. Right Ear: External ear normal. Left Ear: External ear normal. Nose: Comments: Surgical Mask in place Mouth/Throat: Comments: Surgical Mask in place Eyes: Pupils: Pupils are equal, round, and reactive to light. Cardiovascular: Rate and Rhythm: Normal rate and regular rhythm. Pulses: Normal pulses. Heart sounds: Normal heart sounds. Pulmonary: Effort: Pulmonary effort is normal. No respiratory distress. Breath sounds: Normal breath sounds. Neurological: Mental Status: She is alert. Osteopathic Medical Exam: Thoracic: T12: Right: ERS Lumbar: Osteopathic Lumbar Exam: L4: Right: FRS L5: Right: ERS Sacrum: Sacral Torsion: L on R Pelvis: Right Innominate posterior. Ribs: 7: Inhalation: Left Assessment/Plan: Diagnoses and all orders for this visit: Chronic midline low back pain without sciatica Responding well to OMT. I continue to recommend physical therapy Would benefit from further treatment Encouraged her to continue to work on her low back stretches and exercises. Depression, unspecified depression type Tobacco Use Comments: Historically well controlled on Paxil, but over the past month her mood has been worse secondary tosignificant life stressors. Is interested in augmenting with Wellbutrin due to additional aid of smoking cessation. Will refill Paxil and start Wellbutrin today. Orders: - PARoxetine (PAXIL) 40 MG tablet; Take 1 (one) tablet (40 mg total) by mouth every morning . - buPROPion (Wellbutrin XL) 150 MG 24 hr tablet; Take 1 (one) tablet (150 mg total) by mouth daily . Influenza vaccination administered at current visit - Influenza IIV4 3yo or >,Fluzone Quad Somatic dysfunction of thoracic region Somatic dysfunction of rib cage region Somatic dysfunction of lumbar region Somatic dysfunction of pelvis region Somatic dysfunction of sacral region OMT applied for patient, following informed consent. Modality (-ies) utilized: MFR, Stills, BLT, FPR Pt tolerated the OMT as follows: without complication Response in symptomatology reported by patient: decrease pain, improved symptoms Osteopathic medical exam findings after recheck: decreased tenderness, improved ROM, decreased tissue hypertonicity For any new medications prescribed today, patient was educated about indications for the medication, how to take the medication and potential side effects of the medications. Patient staffed and seen with Dr. Bermudez who agrees with this plan. Return in about 4 weeks (around 08/04/2021) for Follow Up Back Pain. Peter Mendoza DO [facility] PGY-3 Note: To expedite correspondence, this note was generated by [employer] voice recognition software. Some grammatical or spelling errors may occur using the system. documented in this [id number] History of Present illness Narrative* Lon Bhatti DO - 06/14/2021 4:33 PM EDT Late entry. Date of service was 06/07/21. Physical Exam Patient appears well, in no apparent distress. Alert, pleasant and cooperative. Vital signs reviewed and documented in vital signs section. I have personally seen and examined the patient independently of the resident physician. I have reviewed the history, physical, diagnosis and care plan with the resident physician, Peter Mendoza DO. I confirm the assessment and treatment plan: Diagnoses and all orders for this visit: Cervicalgia - meloxicam (MOBIC) 15 MG tablet; Take 1 (one) tablet (15 mg total) by mouth daily . - gabapentin (NEURONTIN) 300 MG capsule; Take 2 (two) capsules (600 mg total) by mouth 3 (three) times a day . - cyclobenzaprine (FLEXERIL) 10 MG tablet; Take 0.5 (one-half) tablet (5 mg total) by mouth 3 (three) times a day . - Ambulatory Ref to [facility] (PT/OT/ST); Future Chronic midline low back pain without sciatica Bilateral shoulder pain, unspecified chronicity Comments: Suspect her shoulder pain is due to combination of chronic neck pain as well as shoulder arthritis. OMT today with some symptom improvement. Would benefit fro Orders: - Ambulatory Ref to [facility] (PT/OT/ST); Future Depression, unspecified depression type Comments: mood well controlled on Paxil refilled today, pt will return to discuss further Orders: - PARoxetine (PAXIL) 40 MG tablet; Take 1 (one) tablet (40 mg total) by mouth every morning . Somatic dysfunction of head region Somatic dysfunction of cervical region Somatic dysfunction of thoracic region Somatic dysfunction of rib cage region Somatic dysfunction of lumbar region Somatic dysfunction of pelvis region Somatic dysfunction of sacral region Somatic dysfunction of abdominal region * Peter Mendoza DO - 06/07/2021 3:40 PM EDT Subjective Patient ID: shay Sweeney is a 55 y.o. female. Chief Complaint Patient presents with Neck Pain discuss medication refills Shoulder Pain right shoulder HPI Neck Pain Shoulder Pain Benefited from OMT last visit Was previously holding her Mobic due to her GI symptoms, but would like to resume now. No other change in symptoms Still taking tylenol for pain Willing to do PT Gabapentin is helping pain The following portions of the patient's history were reviewed and updated as appropriate: allergies, current medications, past family history, past medical history, past social history, past surgicalhistory and problem list. Patient's Medications New Prescriptions No medications on file Previous Medications ACETAMINOPHEN (TYLENOL) 325 MG TABLET Take 650 mg by mouth every 6 (six) hours as needed for pain . BUDESONIDE (ENTOCORT EC) 3 MG 24 HR CAPSULE Take 9 mg by mouth daily . BUPRENORPHINE-NALOXONE (SUBOXONE) 8-[address] 1 tablet under the tongue 2 (two) times a day . FOLIC ACID (FOLVITE) 1 MG TABLET Take 1 mg by mouth daily . MULTIVITAMIN (DAILY MULTIPLE) PER TABLET Take 1 tablet by mouth daily . PANTOPRAZOLE (PROTONIX) 40 MG TABLET POLYETHYLENE GLYCOL (GLYCOLAX) 17 GRAM/DOSE POWDER Take 17 g by mouth daily . Modified Medications Modified Medication Previous Medication CYCLOBENZAPRINE (FLEXERIL) 10 MG TABLET cyclobenzaprine (FLEXERIL) 10 MG tablet Take 0.5 (one-half) tablet (5 mg total) by mouth 3 (three) times a day . GABAPENTIN (NEURONTIN) 300 MG CAPSULE gabapentin (NEURONTIN) 300 MG capsule Take 2 (two) capsules (600 mg total) by mouth 3 (three) times a day . Take 2 (two) capsules (600 mgtotal) by mouth 3 (three) times a day . MELOXICAM (MOBIC) 15 MG TABLET meloxicam (MOBIC) 15 MG tablet Take 1 (one) tablet (15 mg total) by mouth daily . Take 15 mg by mouth daily . PAROXETINE (PAXIL) 40 MG TABLET PARoxetine (PAXIL) 40 MG tablet Take 1 (one) tablet (40 mg total) by mouth every morning . Take 40 mg by mouth every morning . Discontinued Medications IBUPROFEN (ADVIL,MOTRIN) 600 MG TABLET Take 600 mg by mouth every 6 (six) hours as needed . MAPAP ARTHRITIS PAIN 650 MG CR TABLET Take 650 mg by mouth every 6 (six) hours as needed for pain . PAROXETINE (PAXIL) 40 MG TABLET Take 1 (one) tablet (40 mg total) by mouth daily . TIZANIDINE (ZANAFLEX) 2 MG TABLET Review of Systems Constitutional: Negative for fever. Respiratory: Negative for stridor. Cardiovascular: Negative for chest pain. Musculoskeletal: Positive for arthralgias, back pain and neck pain. Objective BP 106/70 Pulse 78 Temp 97.1 F (36.2 C) (Temporal) Resp 16 Ht 5' 1 Wt 79.4 kg (175 lb) LMP 03/24/2015 SpO2 93% BMI 33.07 kg/m Physical Exam Constitutional: Appearance: Normal appearance. HENT: Head: Normocephalic and atraumatic. Right Ear: External ear normal. Left Ear: External ear normal. Nose: Comments: Surgical Mask in place Mouth/Throat: Comments: Surgical Mask in place Eyes: Pupils: Pupils are equal, round, and reactive to light. Cardiovascular: Rate and Rhythm: Normal rate and regular rhythm. Pulses: Normal pulses. Heart sounds: Normal heart sounds. Pulmonary: Effort: Pulmonary effort is normal. No respiratory distress. Breath sounds: Normal breath sounds. Neurological: Mental Status: She is alert. Osteopathic Medical Exam: Head: Occipital-[place]unction: Extension: SRRL Cervical/Neck: Cervical Exam AA: Rotated L C3: Right: FRS C5: Right: FRS Thoracic: T1: Right: FRS T6: Left: ERS T12: Right: FRS Lumbar: Osteopathic Lumbar Exam: L5: Right: ERS Sacrum: Sacral Torsion: R on L Pelvis: Left Innominate upslip. Right Innominate posterior. Ribs: 1: Inhalation: Right Abdominal and Visceral: Abdominal fascial restrictions: Left Hemidiaphragm Assessment/Plan: Diagnoses and all orders for this visit: Cervicalgia Chronic midline low back pain without sciatica Improved with OMT today May benefit from further treatments as well as physical therapy - meloxicam (MOBIC) 15 MG tablet; Take 1 (one) tablet (15 mg total) by mouth daily . - gabapentin (NEURONTIN) 300 MG capsule; Take 2 (two) capsules (600 mg total) by mouth 3 (three) times a day . - cyclobenzaprine (FLEXERIL) 10 MG tablet; Take 0.5 (one-half) tablet (5 mg total) by mouth 3 (three) times a day . - Ambulatory Ref to [facility] (PT/OT/ST); Future Bilateral shoulder pain, unspecified chronicity Comments: Suspect her shoulder pain is due to combination of chronic neck pain as well as shoulder arthritis. Orders: - Ambulatory Ref to [facility] (PT/OT/ST); Future Depression, unspecified depression type Comments: mood well controlled on Paxil refilled today, pt will return to discuss further Orders: - PARoxetine (PAXIL) 40 MG tablet; Take 1 (one) tablet (40 mg total) by mouth every morning . Somatic dysfunction of head region Somatic dysfunction of cervical region Somatic dysfunction of thoracic region Somatic dysfunction of rib cage region Somatic dysfunction of lumbar region Somatic dysfunction of pelvis region Somatic dysfunction of sacral region Somatic dysfunction of abdominal region OMT applied for patient, following informed consent. Modality (-ies) utilized: ME, BLT, C/S, soft tissue, HVLA (Pelvis), Stills, FPR Pt tolerated the OMT as follows: without complication Response in symptomatology reported by patient: decrease pain, improved symptoms Osteopathic medical exam findings after recheck: decreased tenderness, improved ROM, decreased tissue hypertonicity For any new medications prescribed today, patient was educated about indications for the medication, how to take the medication and potential side effects of the medications. Patient staffed and seen with Dr. Bhatti who agrees with this plan. Return in about 2 weeks (around 06/21/2021) for Follow Up Mood. Peter Mendoza DO [facility] PGY-3 Note: To expedite correspondence, this note was generated by [employer] recognition software. Some grammatical or spelling errors may occur using the system. documented in this [id number] Instructions* Patient Instructions* Peter Mendoza DO - 06/07/2021 4:51 PM EDT If you don't get a call from central scheduling for neck MRI, call [phone] documented in this [id number] Instructions* Patient Instructions* Peter Mendoza DO - 06/07/2021 4:51 PM EDT If you don't get a call from central scheduling for neck MRI, call [phone] documented in this [id number] History of Present illness Narrative* Peter Mendoza DO - 06/07/2021 3:40 PM EDT Subjective Patient ID: shay Sweeney is a 55 y.o. female. Chief Complaint Patient presents with Neck Pain discuss medication refills Shoulder Pain right shoulder HPI Neck Pain Shoulder Pain Benefited from OMT last visit Was previously holding her Mobic due to her GI symptoms, but would like to resume now. No other change in symptoms Still taking tylenol for pain Willing to do PT Gabapentin is helping pain The following portions of the patient's history were reviewed and updated as appropriate: allergies, current medications, past family history, past medical history, past social history, past surgicalhistory and problem list. Patient's Medications New Prescriptions No medications on file Previous Medications ACETAMINOPHEN (TYLENOL) 325 MG TABLET Take 650 mg by mouth every 6 (six) hours as needed for pain . BUDESONIDE (ENTOCORT EC) 3 MG 24 HR CAPSULE Take 9 mg by mouth daily . BUPRENORPHINE-NALOXONE (SUBOXONE) 8-[address] 1 tablet under the tongue 2 (two) times a day . FOLIC ACID (FOLVITE) 1 MG TABLET Take 1 mg by mouth daily . MULTIVITAMIN (DAILY MULTIPLE) PER TABLET Take 1 tablet by mouth daily . PANTOPRAZOLE (PROTONIX) 40 MG TABLET POLYETHYLENE GLYCOL (GLYCOLAX) 17 GRAM/DOSE POWDER Take 17 g by mouth daily . Modified Medications Modified Medication Previous Medication CYCLOBENZAPRINE (FLEXERIL) 10 MG TABLET cyclobenzaprine (FLEXERIL) 10 MG tablet Take 0.5 (one-half) tablet (5 mg total) by mouth 3 (three) times a day . GABAPENTIN (NEURONTIN) 300 MG CAPSULE gabapentin (NEURONTIN) 300 MG capsule Take 2 (two) capsules (600 mg total) by mouth 3 (three) times a day . Take 2 (two) capsules (600 mgtotal) by mouth 3 (three) times a day . MELOXICAM (MOBIC) 15 MG TABLET meloxicam (MOBIC) 15 MG tablet Take 1 (one) tablet (15 mg total) by mouth daily . Take 15 mg by mouth daily . PAROXETINE (PAXIL) 40 MG TABLET PARoxetine (PAXIL) 40 MG tablet Take 1 (one) tablet (40 mg total) by mouth every morning . Take 40 mg by mouth every morning . Discontinued Medications IBUPROFEN (ADVIL,MOTRIN) 600 MG TABLET Take 600 mg by mouth every 6 (six) hours as needed . MAPAP ARTHRITIS PAIN 650 MG CR TABLET Take 650 mg by mouth every 6 (six) hours as needed for pain . PAROXETINE (PAXIL) 40 MG TABLET Take 1 (one) tablet (40 mg total) by mouth daily . TIZANIDINE (ZANAFLEX) 2 MG TABLET Review of Systems Constitutional: Negative for fever. Respiratory: Negative for stridor. Cardiovascular: Negative for chest pain. Musculoskeletal: Positive for arthralgias, back pain and neck pain. Objective BP 106/70 Pulse 78 Temp 97.1 F (36.2 C) (Temporal) Resp 16 Ht 5' 1 Wt 79.4 kg (175 lb) LMP 03/24/2015 SpO2 93% BMI 33.07 kg/m Physical Exam Constitutional: Appearance: Normal appearance. HENT: Head: Normocephalic and atraumatic. Right Ear: External ear normal. Left Ear: External ear normal. Nose: Comments: Surgical Mask in place Mouth/Throat: Comments: Surgical Mask in place Eyes: Pupils: Pupils are equal, round, and reactive to light. Cardiovascular: Rate and Rhythm: Normal rate and regular rhythm. Pulses: Normal pulses. Heart sounds: Normal heart sounds. Pulmonary: Effort: Pulmonary effort is normal. No respiratory distress. Breath sounds: Normal breath sounds. Neurological: Mental Status: She is alert. Osteopathic Medical Exam: Head: Occipital-[place]unction: Extension: SRRL Cervical/Neck: Cervical Exam AA: Rotated L C3: Right: FRS C5: Right: FRS Thoracic: T1: Right: FRS T6: Left: ERS T12: Right: FRS Lumbar: Osteopathic Lumbar Exam: L5: Right: ERS Sacrum: Sacral Torsion: R on L Pelvis: Left Innominate upslip. Right Innominate posterior. Ribs: 1: Inhalation: Right Abdominal and Visceral: Abdominal fascial restrictions: Left Hemidiaphragm Assessment/Plan: Diagnoses and all orders for this visit: Cervicalgia Chronic midline low back pain without sciatica Improved with OMT today May benefit from further treatments as well as physical therapy - meloxicam (MOBIC) 15 MG tablet; Take 1 (one) tablet (15 mg total) by mouth daily . - gabapentin (NEURONTIN) 300 MG capsule; Take 2 (two) capsules (600 mg total) by mouth 3 (three) times a day . - cyclobenzaprine (FLEXERIL) 10 MG tablet; Take 0.5 (one-half) tablet (5 mg total) by mouth 3 (three) times a day . - Ambulatory Ref to [facility] (PT/OT/ST); Future Bilateral shoulder pain, unspecified chronicity Comments: Suspect her shoulder pain is due to combination of chronic neck pain as well as shoulder arthritis. Orders: - Ambulatory Ref to [facility] (PT/OT/ST); Future Depression, unspecified depression type Comments: mood well controlled on Paxil refilled today, pt will return to discuss further Orders: - PARoxetine (PAXIL) 40 MG tablet; Take 1 (one) tablet (40 mg total) by mouth every morning . Somatic dysfunction of head region Somatic dysfunction of cervical region Somatic dysfunction of thoracic region Somatic dysfunction of rib cage region Somatic dysfunction of lumbar region Somatic dysfunction of pelvis region Somatic dysfunction of sacral region Somatic dysfunction of abdominal region OMT applied for patient, following informed consent. Modality (-ies) utilized: ME, BLT, C/S, soft tissue, HVLA (Pelvis), Stills, FPR Pt tolerated the OMT as follows: without complication Response in symptomatology reported by patient: decrease pain, improved symptoms Osteopathic medical exam findings after recheck: decreased tenderness, improved ROM, decreased tissue hypertonicity For any new medications prescribed today, patient was educated about indications for the medication, how to take the medication and potential side effects of the medications. Patient staffed and seen with Dr. Bhatti who agrees with this plan. Return in about 2 weeks (around 06/21/2021) for Follow Up Mood. Peter Mendoza DO [facility] PGY-3 Note: To expedite correspondence, this note was generated by [employer] voice recognition software. Some grammatical or spelling errors may occur using the system. documented in this [id number] History of Present illness Narrative* Thaddeus Lynn DO - 05/02/2021 10:41 AM EDT I have personally seen and examined the patient independently of the resident physician. I have reviewed the history, physical, diagnosis and care plan with the resident physician, Peter Mendoza DO. Pt here for management of chronic diarrhea Continues to have 3-5 BMs per day Following with GI physician Also addressed bilateral shoulder pain x 2-3 months Feels it may be worsened by repetitive motions at work. Sometimes she gets electric shocks that move down her arms. She had a cervical MRI with noted cervical spondylosis BP 117/76 Pulse 80 Temp 97.9 F (36.6 C) (Temporal) Resp 16 Ht 5' 1 Wt 79.4 kg (175 lb) LMP 03/24/2015 SpO2 95% BMI 33.07 kg/m Patient appears in no apparent distress. Alert and oriented x 3. Respirations unlabored. I confirm the assessment and treatment plan: Diagnoses and all orders for this visit: Chronic midline low back pain without sciatica Other orders - XR Shoulder Right 2+ Views (Standard); Future - XR Shoulder Left 2+ Views (Standard); Future - I agree with recommendations given today: Pt to continue to work with GI Increase dose of gabapentin to 600 mg TID OMT applied for associated somatic dysfunctions Check imaging as noted Referral to physical therapy for further evaluation and management I agree with diagnostic tests as ordered today - I agree with plan for follow up as noted by the resident physician - I personally examined the patient and reviewed the plan with the resident prior to patient leaving the office. * Malina Pollock CMA - 05/02/2021 10:01 AM EDT Spoke with patient to screen for COVID-19 Are you experiencing any of the following symptoms: Chills no Fever no Cough yes Sore throat no Shortness of breath no Muscle pain no Severe headache no Nasal congestion no Runny nose no Loss of taste no Loss of smell no Vomiting no Diarrhea yes When did these symptoms begin? COUGH FOR FEW DAYS /.. diarrhea a little better Which location would you prefer for testing if indicated? * Peter Mendoza Lp, DO - 05/02/2021 10:00 AM EDT Subjective Patient ID: shay Sweeney is a 55 y.o. female. Chief Complaint Patient presents with Diarrhea Shoulder Pain HPI Chronic Diarrhea - suspected C. Diff infection. - improved since starting the vancomycin - still has 3-7 BMs daily, but now stool is thicker and is no longer watery - still on vancomycin, will complete today - will follow up With GI 05/11 Shoulder pain - present for 2-3 months - no known injury, but thinks its related to repetitive arm movements at work (works at [employer]) - it has improved while not being at work - both hurt, but right is worse then left. - sometimes describes electric shocks down both arms - Past cervical MRI with spondylosis at multiple levels - also describes chronic neck pain -She normally takes Mobic and gabapentin for her chronic neck and back pain, but she is currently holding Mobic as she will soon have a hysterectomy. She does report that her shoulder pain does improve with gabapentin. The following portions of the patient's history were reviewed and updated as appropriate: allergies, current medications, past family history, past medical history, past social history, past surgicalhistory and problem list. Patient's Medications New Prescriptions No medications on file Previous Medications ACETAMINOPHEN (TYLENOL) 325 MG TABLET Take 650 mg by mouth every 6 (six) hours as needed for pain . BUPRENORPHINE-NALOXONE (SUBOXONE) 8-[address] 1 tablet under the tongue 2 (two) times a day . CYCLOBENZAPRINE (FLEXERIL) 10 MG TABLET FOLIC ACID (FOLVITE) 1 MG TABLET Take 1 mg by mouth daily . MELOXICAM (MOBIC) 15 MG TABLET Take 15 mg by mouth daily . MULTIVITAMIN (DAILY MULTIPLE) PER TABLET Take 1 tablet by mouth daily . PANTOPRAZOLE (PROTONIX) 40 MG TABLET PAROXETINE (PAXIL) 40 MG TABLET Take 1 (one) tablet (40 mg total) by mouth daily . TIZANIDINE (ZANAFLEX) 2 MG TABLET Modified Medications Modified Medication Previous Medication GABAPENTIN (NEURONTIN) 300 MG CAPSULE gabapentin (NEURONTIN) 300 MG capsule Take 2 (two) capsules (600 mg total) by mouth 3 (three) times a day . Take 1 tablet in AM, 1 tabletin afternoon, and 2 tablets in evening . Discontinued Medications No medications on file Review of Systems All other systems reviewed and are negative. Objective BP 117/76 Pulse 80 Temp 97.9 F (36.6 C) (Temporal) Resp 16 Ht 5' 1 Wt 79.4 kg (175 lb) LMP 03/24/2015 SpO2 95% BMI 33.07 kg/m Physical Exam Constitutional: Appearance: Normal appearance. HENT: Head: Normocephalic and atraumatic. Right Ear: External ear normal. Left Ear: External ear normal. Nose: Comments: Surgical Mask in place Mouth/Throat: Comments: Surgical Mask in place Eyes: Pupils: Pupils are equal, round, and reactive to light. Cardiovascular: Rate and Rhythm: Normal rate and regular rhythm. Pulses: Normal pulses. Heart sounds: Normal heart sounds. Pulmonary: Effort: Pulmonary effort is normal. No respiratory distress. Breath sounds: Normal breath sounds. Musculoskeletal: Comments: Bilateral shoulder exam: Positive Empty can Positive Lift off Positive Hawkin's, Neer's +Spurling's left Normal neurovascular exam Neurological: Mental Status: She is alert. Deep Tendon Reflexes: Reflex Scores: Tricep reflexes are 1+ on the right side and 1+ on the left side. Bicep reflexes are 2+ on the right side and 2+ on the left side. Brachioradialis reflexes are 2+ on the right side and 2+ on the left side. Comments: Upper extremity strength intact bilateral Upper extremity sensation intact bilateral Osteopathic Medical Exam Rib cage: Left rib 1 exhaled, right rib 1 inhaled Upper extremity: Right supraspinatus tender point Assessment/Plan: Diagnoses and all orders for this visit: Chronic diarrhea of unknown origin Comments: Acute watery diarrhea has resolved. But she still has her typical chronic diarrhea which is more solidified. As the stool study was completed after she had already started vancomycin, the negative C. difficile on the study is not as accurate. Neck pain Comments: Spondylolytic findings on prior imaging. Suspect combination of arthritis and neuropathic pain. Update x-ray today Orders: - XR Cervical Spine Complete 4-5 Views (Standard); Future - Ambulatory Ref to [facility] (PT/OT/ST); Future Bilateral shoulder pain, unspecified chronicity Comments: Suspect her shoulder pain is due to combination of chronic neck pain as well as shoulder arthritis. This evidence is supported by improvement of her shoulder pain with her gabapentin while she is currently holding Mobic Will increase gabapentin given the described worsening of her chronic neck and back pain while holding mobic OMT today with some symptom improvement. Would benefit from further sessions. Orders: - XR Shoulder Right 2+ Views (Standard); Future - XR Shoulder Left 2+ Views (Standard); Future - Ambulatory Ref to [facility] (PT/OT/ST); Future - gabapentin (NEURONTIN) 300 MG capsule; Take 2 (two) capsules (600 mg total) by mouth 3 (three) times a day . Chronic midline low back pain without sciatica - gabapentin (NEURONTIN) 300 MG capsule; Take 2 (two) capsules (600 mg total) by mouth 3 (three) times a day . Glucose intolerance (impaired glucose tolerance) Comments: Elevated fasting glucose on prior lab. A1c today Orders: - Hemoglobin A1c; Future . For any new medications prescribed today, patient was educated about indications for the medication, how to take the medication and potential side effects of the medications. Patient staffed and seen with Dr. Lynn who agrees with this plan. Return in about 1 week (around 05/09/2021) for Follow Up shoulder pain. Peter Mendoza DO [facility] PGY-3 Note: To expedite correspondence, this note was generated by [employer] voice recognition software. Some grammatical or spelling errors may occur using the system. documented in this [id number] History of Present illness Narrative* Madhuri Whatley DO - 04/27/2021 1:04 PM EDT Late Entry Note for DOS 04/22/21 I have seen and reviewed the history, physical, diagnosis and care plan with the resident physician, Peter Mendoza DO. I confirm the assessment and treatment plan: Diagnoses and all orders for this visit: Chronic diarrhea of unknown origin - Calprotectin; Future - Tissue Transglutaminase, IgA; Future - Comprehensive Metabolic Panel; Future - CBC and Differential; Future - Stool/GI PCR Panel; Future - Electrolytes and Osmolality, Stool; Future - Lactic Acid, Plasma; Future - Sedimentation Rate; Future - CRP, Inflammation; Future - Gliadin Antibody, IgA; Future - HIV 1/2 Screen (4th Generation); Future - vancomycin (VANCOCIN) 125 MG capsule; Take 1 (one) capsule (125 mg total) by mouth 4 (four) timesa day for 10 days . Abdominal pain, unspecified abdominal location - CT Abdomen Pelvis With Contrast; Future - Lipase; Future Leukocytosis, unspecified type Patient with persistent diarrhea as in the note, HPI and ROS are noted. She is pale, hydrated and non toxic appearing. I agree with the A/P - checking blood work to further work up chronic diarrhea, obtain imaging, continue bland diet and close follow up * Malina Pollock CMA - 04/22/2021 11:08 AM EDT Spoke with patient to screen for COVID-19 Are you experiencing any of the following symptoms: Chills no Fever no Cough no Sore throat no Shortness of breath no Muscle pain no Severe headache yes Nasal congestion no Runny nose no Loss of taste no Loss of smell no Vomiting no Diarrhea yes When did these symptoms begin? months Which location would you prefer for testing if indicated? * Peter Mendoza Lp, - 04/22/2021 11:00 AM EDT Subjective Patient ID: shay Sweeney is a 55 y.o. female. Chief Complaint Patient presents with Abdominal Pain discuss acid reflux medication Bloated Diarrhea a little better HPI Chronic Diarrhea: 04/09 is when her symptoms started to get worse again Yesterday was really bad Does it get better with fasting? No. Still occurs with fasting. Last meal was yesterday evening, patient has had 3 diarrhea episodes Describes: oily stool, like if someone took lid of cooking oil and poured into toilet. Also stool is floating now Blood in stool? No blood in stool, but had some on toilet paper yesterday. Has history of hemorrhoids Weight loss? No, Wt Readings from Last 3 Encounters: 04/22/21 78.9 kg (174 lb) 04/14/21 78.5 kg (173 lb) 03/30/21 78.9 kg (174 lb) The following portions of the patient's history were reviewed and updated as appropriate: allergies, current medications, past family history, past medical history, past social history, past surgicalhistory and problem list. Patient's Medications New Prescriptions VANCOMYCIN (VANCOCIN) 125 MG CAPSULE Take 1 (one) capsule (125 mg total) by mouth 4 (four) times a day for 10 days . Previous Medications ACETAMINOPHEN (TYLENOL) 325 MG TABLET Take 650 mg by mouth every 6 (six) hours as needed for pain . BUPRENORPHINE-NALOXONE (SUBOXONE) 8-[address] 1 tablet under the tongue 2 (two) times a day . FOLIC ACID (FOLVITE) 1 MG TABLET Take 1 mg by mouth daily . GABAPENTIN (NEURONTIN) 300 MG CAPSULE Take 1 tablet in AM, 1 tablet in afternoon, and 2 tablets in evening . MELOXICAM (MOBIC) 15 MG TABLET Take 15 mg by mouth daily . MULTIVITAMIN (DAILY MULTIPLE) PER TABLET Take 1 tablet by mouth daily . PANTOPRAZOLE (PROTONIX) 40 MG TABLET PAROXETINE (PAXIL) 40 MG TABLET Take 1 (one) tablet (40 mg total) by mouth daily . Modified Medications No medications on file Discontinued Medications No medications on file Review of Systems Constitutional: Positive for fatigue. Negative for chills and fever. HENT: Negative for congestion. Cardiovascular: Negative for chest pain. Gastrointestinal: Positive for abdominal distention, abdominal pain (LLQ ) and diarrhea. Negative for blood in stool, constipation, nausea and vomiting. Endocrine: Negative for polyuria. Genitourinary: Negative for difficulty urinating and dysuria. Musculoskeletal: Positive for back pain (chronic). Neurological: Positive for headaches (2 weeks). Negative for dizziness, syncope and light-headedness. Objective BP 116/72 Pulse 82 Temp 97.9 F (36.6 C) (Temporal) Resp 16 Ht 5' 1 Wt 78.9 kg (174 lb) LMP 03/24/2015 SpO2 95% BMI 32.88 kg/m Physical Exam Constitutional: Appearance: Normal appearance. She is ill-appearing. HENT: Head: Normocephalic and atraumatic. Right Ear: External ear normal. Left Ear: External ear normal. Nose: Comments: Surgical Mask in place Mouth/Throat: Comments: Surgical Mask in place Eyes: Pupils: Pupils are equal, round, and reactive to light. Cardiovascular: Rate and Rhythm: Normal rate and regular rhythm. Pulses: Normal pulses. Heart sounds: Normal heart sounds. Pulmonary: Effort: Pulmonary effort is normal. No respiratory distress. Breath sounds: Normal breath sounds. Abdominal: General: Bowel sounds are normal. There is distension (mild). Palpations: Abdomen is soft. Tenderness: There is abdominal tenderness (generelaized, worse at LLQ and epigastric). Neurological: Mental Status: She is alert. Assessment/Plan: Differential diagnosis includes: Recurrent C. difficile infection, IBD, celiac disease, diverticulitis, less likely malignancy. Patient's blood pressure did improve on recheck today, and vital signs stable. Reviewed labs from yesterday at her PAT, which did show a leukocytosis of 18 with left shift. Called patient's GI specialist Dr. Quan to discuss case. He is suspicious for C. difficile and agrees with the below work-up and recommend starting vancomycin empirically. He will send over her recent colonoscopy report, and try to follow-up with the patient in clinic in the coming days. Strict ED precautions discussed. Patient will obtain her stat CT this afternoon. Work-up as below. Diagnoses and all orders for this visit: Chronic diarrhea of unknown origin - Cancel: Electrolytes and Osmolality, Stool; Future - Calprotectin; Future - Tissue Transglutaminase, IgA; Future - Comprehensive Metabolic Panel; Future - CBC and Differential; Future - Stool/GI PCR Panel; Future - Electrolytes and Osmolality, Stool; Future - Lactic Acid, Plasma; Future - Sedimentation Rate; Future - CRP, Inflammation; Future - Gliadin Antibody, IgA; Future - HIV 1/2 Screen (4th Generation); Future - vancomycin (VANCOCIN) 125 MG capsule; Take 1 (one) capsule (125 mg total) by mouth 4 (four) timesa day for 10 days . Abdominal pain, unspecified abdominal location - CT Abdomen Pelvis With Contrast; Future - Lipase; Future Leukocytosis, unspecified type For any new medications prescribed today, patient was educated about indications for the medication, how to take the medication and potential side effects of the medications. Patient staffed and seen with Dr. Whatley who agrees with this plan. Return in about 1 week (around 04/29/2021) for Follow Up diarrhea. Peter Mendoza DO [facility] PGY-3 Note: To expedite correspondence, this note was generated by [employer] voice recognition software. Some grammatical or spelling errors may occur using the system. documented in this [id number] History of Present illness Narrative* Malina Pollock CMA - 04/22/2021 11:08 AM EDT Spoke with patient to screen for COVID-19 Are you experiencing any of the following symptoms: Chills no Fever no Cough no Sore throat no Shortness of breath no Muscle pain no Severe headache yes Nasal congestion no Runny nose no Loss of taste no Loss of smell no Vomiting no Diarrhea yes When did these symptoms begin? months Which location would you prefer for testing if indicated? * Peter Mendoza Lp, DO - 04/22/2021 11:00 AM EDT Subjective Patient ID: shay Sweeney is a 55 y.o. female. Chief Complaint Patient presents with Abdominal Pain discuss acid reflux medication Bloated Diarrhea a little better HPI Chronic Diarrhea: 04/09 is when her symptoms started to get worse again Yesterday was really bad Does it get better with fasting? No. Still occurs with fasting. Last meal was yesterday evening, patient has had 3 diarrhea episodes Describes: oily stool, like if someone took lid of cooking oil and poured into toilet. Also stool is floating now Blood in stool? No blood in stool, but had some on toilet paper yesterday. Has history of hemorrhoids Weight loss? No, Wt Readings from Last 3 Encounters: 04/22/21 78.9 kg (174 lb) 04/14/21 78.5 kg (173 lb) 03/30/21 78.9 kg (174 lb) The following portions of the patient's history were reviewed and updated as appropriate: allergies, current medications, past family history, past medical history, past social history, past surgicalhistory and problem list. Patient's Medications New Prescriptions VANCOMYCIN (VANCOCIN) 125 MG CAPSULE Take 1 (one) capsule (125 mg total) by mouth 4 (four) times a day for 10 days . Previous Medications ACETAMINOPHEN (TYLENOL) 325 MG TABLET Take 650 mg by mouth every 6 (six) hours as needed for pain . BUPRENORPHINE-NALOXONE (SUBOXONE) 8-[address] 1 tablet under the tongue 2 (two) times a day . FOLIC ACID (FOLVITE) 1 MG TABLET Take 1 mg by mouth daily . GABAPENTIN (NEURONTIN) 300 MG CAPSULE Take 1 tablet in AM, 1 tablet in afternoon, and 2 tablets in evening . MELOXICAM (MOBIC) 15 MG TABLET Take 15 mg by mouth daily . MULTIVITAMIN (DAILY MULTIPLE) PER TABLET Take 1 tablet by mouth daily . PANTOPRAZOLE (PROTONIX) 40 MG TABLET PAROXETINE (PAXIL) 40 MG TABLET Take 1 (one) tablet (40 mg total) by mouth daily . Modified Medications No medications on file Discontinued Medications No medications on file Review of Systems Constitutional: Positive for fatigue. Negative for chills and fever. HENT: Negative for congestion. Cardiovascular: Negative for chest pain. Gastrointestinal: Positive for abdominal distention, abdominal pain (LLQ ) and diarrhea. Negative for blood in stool, constipation, nausea and vomiting. Endocrine: Negative for polyuria. Genitourinary: Negative for difficulty urinating and dysuria. Musculoskeletal: Positive for back pain (chronic). Neurological: Positive for headaches (2 weeks). Negative for dizziness, syncope and light-headedness. Objective BP 116/72 Pulse 82 Temp 97.9 F (36.6 C) (Temporal) Resp 16 Ht 5' 1 Wt 78.9 kg (174 lb) LMP 03/24/2015 SpO2 95% BMI 32.88 kg/m Physical Exam Constitutional: Appearance: Normal appearance. She is ill-appearing. HENT: Head: Normocephalic and atraumatic. Right Ear: External ear normal. Left Ear: External ear normal. Nose: Comments: Surgical Mask in place Mouth/Throat: Comments: Surgical Mask in place Eyes: Pupils: Pupils are equal, round, and reactive to light. Cardiovascular: Rate and Rhythm: Normal rate and regular rhythm. Pulses: Normal pulses. Heart sounds: Normal heart sounds. Pulmonary: Effort: Pulmonary effort is normal. No respiratory distress. Breath sounds: Normal breath sounds. Abdominal: General: Bowel sounds are normal. There is distension (mild). Palpations: Abdomen is soft. Tenderness: There is abdominal tenderness (generelaized, worse at LLQ and epigastric). Neurological: Mental Status: She is alert. Assessment/Plan: Differential diagnosis includes: Recurrent C. difficile infection, IBD, celiac disease, diverticulitis, less likely malignancy. Patient's blood pressure did improve on recheck today, and vital signs stable. Reviewed labs from yesterday at her PAT, which did show a leukocytosis of 18 with left shift. Called patient's GI specialist Dr. uQan to discuss case. He is suspicious for C. difficile and agrees with the below work-up and recommend starting vancomycin empirically. He will send over her recent colonoscopy report, and try to follow-up with the patient in clinic in the coming days. Strict ED precautions discussed. Patient will obtain her stat CT this afternoon. Work-up as below. Diagnoses and all orders for this visit: Chronic diarrhea of unknown origin - Cancel: Electrolytes and Osmolality, Stool; Future - Calprotectin; Future - Tissue Transglutaminase, IgA; Future - Comprehensive Metabolic Panel; Future - CBC and Differential; Future - Stool/GI PCR Panel; Future - Electrolytes and Osmolality, Stool; Future - Lactic Acid, Plasma; Future - Sedimentation Rate; Future - CRP, Inflammation; Future - Gliadin Antibody, IgA; Future - HIV 1/2 Screen (4th Generation); Future - vancomycin (VANCOCIN) 125 MG capsule; Take 1 (one) capsule (125 mg total) by mouth 4 (four) timesa day for 10 days . Abdominal pain, unspecified abdominal location - CT Abdomen Pelvis With Contrast; Future - Lipase; Future Leukocytosis, unspecified type For any new medications prescribed today, patient was educated about indications for the medication, how to take the medication and potential side effects of the medications. Patient staffed and seen with Dr. Whatley who agrees with this plan. Return in about 1 week (around 04/29/2021) for Follow Up diarrhea. Peter Mendoza DO [facility] PGY-3 Note: To expedite correspondence, this note was generated by [employer] voice recognition software. Some grammatical or spelling errors may occur using the system. documented in this [id number] History of Present illness Narrative* Peter Mendoza Lp, DO - 04/18/2021 8:55 AM EDT Orders Placed This Encounter gabapentin (NEURONTIN) 300 MG capsule Sig: Take 1 tablet in AM, 1 tablet in afternoon, and 2 tablets in evening . Dispense: 90 capsule Refill: 0 Appointment needed for further refills. OARRS/NARxCHECK Report Received and Assessed: 04/18/2021 Date controlled substance agreement signed: No data found Date of last drug screen: No data found Functional Assessment: No data found documented in this [id number] Instructions* Patient Instructions* Sue Diaz, - 04/14/2021 2:39 PM EDT Images from the original note were not included. Diarrhea: Care Instructions Your Care Instructions Diarrhea is loose, watery stools (bowel movements). The exact cause is often hard to find. Sometimes diarrhea is your body's way of getting rid of what caused an upset stomach. Viruses, food poisoning, and many medicines can cause diarrhea. Some people get diarrhea in response to emotional stress, anxiety, or certain foods. Almost everyone has diarrhea now and then. It usually isn't serious, and your stools will return tonormal soon. The important thing to do is replace the fluids you have lost, so you can prevent dehydration. The doctor has checked you carefully, but problems can develop later. If you notice any problems ornew symptoms, get medical treatment right away. Follow-up care is a gauthier part of your treatment and safety. Be sure to make and go to all appointments, and call your doctor if you are having problems. It's also a good idea to know your test resultsand keep a list of the medicines you take. How can you care for yourself at home? Watch for signs of dehydration, which means your body has lost too much water. Dehydration is a serious condition and should be treated right away. Signs of dehydration are: ? Increasing thirst and dry eyes and mouth. ? Feeling faint or lightheaded. ? A smaller amount of urine than normal. To prevent dehydration, drink plenty of fluids. Choose water and other caffeine- free clear liquids until you feel better. If you have kidney, heart, or liver disease and have to limit fluids, talk with your doctor before you increase the amount of fluids you drink. Begin eating small amounts of mild foods the next day, if you feel like it. ? Try yogurt that has live cultures of Lactobacillus. (Check the label.) ? Avoid spicy foods, fruits, alcohol, and caffeine until 48 hours after all symptoms are gone. ? Avoid chewing gum that contains sorbitol. ? Avoid dairy products (except for yogurt with Lactobacillus) while you have diarrhea and for 3 days after symptoms are gone. The doctor may recommend that you take [id number] medicine, such as loperamide (Imodium), if you still have diarrhea after 6 hours. Read and follow all instructions on the label. Do not use this medicine if you have bloody diarrhea, a high fever, or other signs of serious illness. Call your doctor if you think you are having a problem with your medicine. When should you call for help? Call 911 anytime you think you may need emergency care. For example, call if: You passed out (lost consciousness). Your stools are maroon or very bloody. Call your doctor now or seek immediate medical care if: You are dizzy or lightheaded, or you feel like you may faint. Your stools are black and look like tar, or they have streaks of blood. You have new or worse belly pain. You have symptoms of dehydration, such as: ? Dry eyes and a dry mouth. ? Passing only a little urine. ? Feeling thirstier than usual. You have a new or higher fever. Watch closely for changes in your health, and be sure to contact your doctor if: Your diarrhea is getting worse. You see pus in the diarrhea. You are not getting better after 2 days (48 hours). Where can you learn more? Log into your personal health record on [email or web address] and enter W335 in the Education box to learn more about Diarrhea: Care Instructions. Current as of: December 17, 2019 Content Version: 12.8 [employer]. Care instructions adapted under license by your healthcare professional. If you have questions about a medical condition or this instruction, always ask your healthcare professional. [employer] disclaims any warranty or liability for your use of this information. documented in this [id number] History of Present illness Narrative* Elif Kramer DO - 04/14/2021 2:26 PM EDT I have personally seen and examined the patient independently of the resident physician. I have reviewed the history, physical, diagnosis and care plan with the resident physician, Sue Diaz DO. I confirm the assessment and treatment plan: Diagnoses and all orders for this visit: Dysuria - POC Urinalysis Dipstick, Auto Chronic diarrhea of unknown origin - Stool/GI PCR Panel; Future - Pancreatic Elastase, Fecal; Future - CBC and Differential - Comprehensive Metabolic Panel - Lipase; Future Acute diarrhea - Stool/GI PCR Panel; Future - Pancreatic Elastase, Fecal; Future - CBC and Differential - Comprehensive Metabolic Panel - Lipase; Future -I agree with lab testing -I agree with close follow up and consideration of refer back to GI for office visit -note incomplete * Malina Pollock CMA - 04/14/2021 1:24 PM EDT Spoke with patient to screen for COVID-19 Are you experiencing any of the following symptoms: Chills no Fever no Cough no Sore throat no Shortness of breath no Muscle pain no Severe headache yes Nasal congestion no Runny nose no Loss of taste no Loss of smell no Vomiting no Diarrhea yes When did these symptoms begin? Headaches past few days Which location would you prefer for testing if indicated? * Sue Diaz DO - 04/14/2021 1:20 PM EDT Subjective Patient ID: shay Sweeney is a 55 y.o. female. Chief Complaint Patient presents with Diarrhea for 2 yrs had cdiff yesterday really bad Abdominal Pain for 5 days Generalized Body Aches for 5 days HPI Chronic Diarrhea 2 years of intermittent diarrhea Normal colonoscopy last week without any instruction from GI , looks like this was her first encounter with this GI doctor Just finished C diff treatment 2 weeks ago Has had c diff x2 (1x 20 years ago, 1x a few months ago) Stools are never solid, usually diarrhea at baseline Has had pancreatitis several times in the past, last episode was 7-8 years ago History of Ulcerative colitis (or Crohn's), doesn't feel like those flares, has been several years since last flare No history of diverticulitis Most Recent Diarrhea Episode Most recent episode started 04/12, felt similar to recent C diff infection Everything goes right through her, darrhea described as water to brown liquid Hemorrhoids are bad, but no blood in stool Too many episodes to count Belly pain, mostly LLQ, crampy and gassy No fevers Denies sick contacts Denies any lifestyle changes Has tried Imodium, and Gas x without relief Worse with any food or liquid Dysuria Burning with pain during urination, started yesterday Pain around ribs and into back Chronic Pain Primarily located in shoulders, neck and low back Chronic has gotten worse and more severe during recent increase in diarrhea The following portions of the patient's history were reviewed and updated as appropriate: allergies, current medications, past family history, past medical history, past social history, past surgicalhistory and problem list. Patient's Medications New Prescriptions No medications on file Previous Medications ACETAMINOPHEN (TYLENOL) 325 MG TABLET Take 650 mg by mouth every 6 (six) hours as needed for pain . BUPRENORPHINE-NALOXONE (SUBOXONE) 8-[address] 1 tablet under the tongue 2 (two) times a day . FOLIC ACID (FOLVITE) 1 MG TABLET Take 1 mg by mouth daily . GABAPENTIN (NEURONTIN) 300 MG CAPSULE Take 1 tablet in AM, 1 tablet in PM, and 2 tablets in evening. MELOXICAM (MOBIC) 15 MG TABLET Take 15 mg by mouth daily . MULTIVITAMIN (DAILY MULTIPLE) PER TABLET Take 1 tablet by mouth daily . PANTOPRAZOLE (PROTONIX) 40 MG TABLET PAROXETINE (PAXIL) 40 MG TABLET Take 1 (one) tablet (40 mg total) by mouth daily . Modified Medications No medications on file Discontinued Medications DIAZEPAM (VALIUM) 5 MG TABLET Take 1 (one) tablet (5 mg total) by mouth 2 (two) times a day as needed for anxiety (Days supply per fill: 3) . VANCOMYCIN (VANCOCIN) 125 MG CAPSULE Take 1 (one) capsule (125 mg total) by mouth daily Start: 03/27/21. Review of Systems Constitutional: Positive for activity change, appetite change and fatigue. Negative for chills, fever and unexpected weight change. Respiratory: Negative for cough, chest tightness and shortness of breath. Cardiovascular: Negative for chest pain. Gastrointestinal: Positive for abdominal distention, abdominal pain, anal bleeding, diarrhea and rectal pain. Negative for blood in stool, constipation, nausea and vomiting. Genitourinary: Positive for difficulty urinating and dysuria. Negative for decreased urine volume, flank pain, frequency, genital sores, hematuria and urgency. Musculoskeletal: Positive for arthralgias, back pain, myalgias and neck pain. Skin: Negative for rash. Objective BP 112/69 Pulse 84 Temp 97.3 F (36.3 C) (Temporal) Resp 16 Ht 5' 1 Wt 78.5 kg (173 lb) LMP 03/24/2015 SpO2 94% BMI 32.69 kg/m Physical Exam Constitutional: General: She is not in acute distress. Appearance: She is ill-appearing. She is not toxic-appearing. Eyes: General: No scleral icterus. Cardiovascular: Rate and Rhythm: Normal rate and regular rhythm. Heart sounds: No murmur heard. No friction rub. No gallop. Pulmonary: Breath sounds: No wheezing, rhonchi or rales. Abdominal: General: Abdomen is flat. Bowel sounds are decreased. There is no abdominal bruit. There are no signs of injury. Palpations: Abdomen is soft. There is no fluid wave, hepatomegaly, splenomegaly or mass. Tenderness: There is generalized abdominal tenderness and tenderness in the epigastric area and left lower quadrant. There is no right CVA tenderness or left CVA tenderness. Negative signs include Earl's sign and McBurney's sign. Genitourinary: Rectum: Guaiac result positive. Tenderness present. No mass. Assessment/Plan: 1. Chronic diarrhea of unknown origin 2. 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 Dysuria Dysuria started yesterday, given diarrhea and wearing adult diapers, increased risk for UTI POC urine dipstick negative for LE or nitrites Low concern for UTI at this time - POC Urinalysis Dipstick, Auto For any new medications prescribed today, patient was educated about indications for the medication, how to take the medication and potential side effects of the medications. Patient staffed and seen with Dr. Kramer who agrees with this plan. Return in about 1 week (around 04/21/2021) for Follow Up Diarrhea. documented in this [id number] History of Present illness Narrative* Elif Kramer DO - 04/14/2021 2:26 PM EDT I have personally seen and examined the patient independently of the resident physician. I have reviewed the history, physical, diagnosis and care plan with the resident physician, Sue Diaz DO. I confirm the assessment and treatment plan: This patient presents for evaluation of acute on chronic diarrhea. She was recently treated for C diff. She had colonoscopy several days ago and told it was normal. She does not follow with gi routinely. Pt denies fever. She does note occl burning with urination. ROS noted Blood pressure 112/69, pulse 84, temperature 97.3 F (36.3 C), temperature source Temporal, resp. rate 16, height 5' 1, weight 78.5 kg (173 lb), last menstrual period 03/24/2015, SpO2 94 %. The patient is in NAD. She is pleasant, cooperative. Respirations unlabored Diagnoses and all orders for this visit: Acute diarrhea - Stool/GI PCR Panel; Future - Pancreatic Elastase, Fecal; Future - CBC and Differential - Comprehensive Metabolic Panel - Lipase Chronic diarrhea of unknown origin - Stool/GI PCR Panel; Future - Pancreatic Elastase, Fecal; Future - CBC and Differential - Comprehensive Metabolic Panel - Lipase Dysuria - POC Urinalysis Dipstick, Auto -I agree with lab testing, await results for recommendations -I agree with close follow up and consideration of refer back to GI for office visit * Malina Pollock CMA - 04/14/2021 1:24 PM EDT Spoke with patient to screen for COVID-19 Are you experiencing any of the following symptoms: Chills no Fever no Cough no Sore throat no Shortness of breath no Muscle pain no Severe headache yes Nasal congestion no Runny nose no Loss of taste no Loss of smell no Vomiting no Diarrhea yes When did these symptoms begin? Headaches past few days Which location would you prefer for testing if indicated? * Sue Diaz DO - 04/14/2021 1:20 PM EDT Subjective Patient ID: shay Sweeney is a 55 y.o. female. Chief Complaint Patient presents with Diarrhea for 2 yrs had cdiff yesterday really bad Abdominal Pain for 5 days Generalized Body Aches for 5 days HPI Chronic Diarrhea 2 years of intermittent diarrhea Normal colonoscopy last week without any instruction from GI , looks like this was her first encounter with this GI doctor Just finished C diff treatment 2 weeks ago Has had c diff x2 (1x 20 years ago, 1x a few months ago) Stools are never solid, usually diarrhea at baseline Has had pancreatitis several times in the past, last episode was 7-8 years ago History of Ulcerative colitis (or Crohn's), doesn't feel like those flares, has been several years since last flare No history of diverticulitis Most Recent Diarrhea Episode Most recent episode started 04/12, felt similar to recent C diff infection Everything goes right through her, darrhea described as water to brown liquid Hemorrhoids are bad, but no blood in stool Too many episodes to count Belly pain, mostly LLQ, crampy and gassy No fevers Denies sick contacts Denies any lifestyle changes Has tried Imodium, and Gas x without relief Worse with any food or liquid Dysuria Burning with pain during urination, started yesterday Pain around ribs and into back Chronic Pain Primarily located in shoulders, neck and low back Chronic has gotten worse and more severe during recent increase in diarrhea The following portions of the patient's history were reviewed and updated as appropriate: allergies, current medications, past family history, past medical history, past social history, past surgicalhistory and problem list. Patient's Medications New Prescriptions No medications on file Previous Medications ACETAMINOPHEN (TYLENOL) 325 MG TABLET Take 650 mg by mouth every 6 (six) hours as needed for pain . BUPRENORPHINE-NALOXONE (SUBOXONE) 8-[address] 1 tablet under the tongue 2 (two) times a day . FOLIC ACID (FOLVITE) 1 MG TABLET Take 1 mg by mouth daily . GABAPENTIN (NEURONTIN) 300 MG CAPSULE Take 1 tablet in AM, 1 tablet in PM, and 2 tablets in evening. MELOXICAM (MOBIC) 15 MG TABLET Take 15 mg by mouth daily . MULTIVITAMIN (DAILY MULTIPLE) PER TABLET Take 1 tablet by mouth daily . PANTOPRAZOLE (PROTONIX) 40 MG TABLET PAROXETINE (PAXIL) 40 MG TABLET Take 1 (one) tablet (40 mg total) by mouth daily . Modified Medications No medications on file Discontinued Medications DIAZEPAM (VALIUM) 5 MG TABLET Take 1 (one) tablet (5 mg total) by mouth 2 (two) times a day as needed for anxiety (Days supply per fill: 3) . VANCOMYCIN (VANCOCIN) 125 MG CAPSULE Take 1 (one) capsule (125 mg total) by mouth daily Start: 03/27/21. Review of Systems Constitutional: Positive for activity change, appetite change and fatigue. Negative for chills, fever and unexpected weight change. Respiratory: Negative for cough, chest tightness and shortness of breath. Cardiovascular: Negative for chest pain. Gastrointestinal: Positive for abdominal distention, abdominal pain, anal bleeding, diarrhea and rectal pain. Negative for blood in stool, constipation, nausea and vomiting. Genitourinary: Positive for difficulty urinating and dysuria. Negative for decreased urine volume, flank pain, frequency, genital sores, hematuria and urgency. Musculoskeletal: Positive for arthralgias, back pain, myalgias and neck pain. Skin: Negative for rash. Objective BP 112/69 Pulse 84 Temp 97.3 F (36.3 C) (Temporal) Resp 16 Ht 5' 1 Wt 78.5 kg (173 lb) LMP 03/24/2015 SpO2 94% BMI 32.69 kg/m Physical Exam Constitutional: General: She is not in acute distress. Appearance: She is ill-appearing. She is not toxic-appearing. Eyes: General: No scleral icterus. Cardiovascular: Rate and Rhythm: Normal rate and regular rhythm. Heart sounds: No murmur heard. No friction rub. No gallop. Pulmonary: Breath sounds: No wheezing, rhonchi or rales. Abdominal: General: Abdomen is flat. Bowel sounds are decreased. There is no abdominal bruit. There are no signs of injury. Palpations: Abdomen is soft. There is no fluid wave, hepatomegaly, splenomegaly or mass. Tenderness: There is generalized abdominal tenderness and tenderness in the epigastric area and left lower quadrant. There is no right CVA tenderness or left CVA tenderness. Negative signs include Earl's sign and McBurney's sign. Genitourinary: Rectum: Guaiac result positive. Tenderness present. No mass. Assessment/Plan: 1. Chronic diarrhea of unknown origin 2. 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 Dysuria Dysuria started yesterday, given diarrhea and wearing adult diapers, increased risk for UTI POC urine dipstick negative for LE or nitrites Low concern for UTI at this time - POC Urinalysis Dipstick, Auto For any new medications prescribed today, patient was educated about indications for the medication, how to take the medication and potential side effects of the medications. Patient staffed and seen with Dr. Kramer who agrees with this plan. Return in about 1 week (around 04/21/2021) for Follow Up Diarrhea. documented in this [id number] History of Present illness Narrative* Thaddeus Lynn DO - 03/28/2021 10:13 AM EDT I have reviewed the history, physical, diagnosis and care plan with the resident physician, Peter Mendoza DO. Pt presents for further evaluation and management of c. Diff colitis Admits to continued 5 bowel movements per day Has a hx of Ulcerative Colitis with associated diarrhea Has appointment scheduled with GI for further evaluation Also addressed shoulder and back pain I confirm the assessment and treatment plan: Diagnoses and all orders for this visit: C. difficile colitis - Stool/GI PCR Panel; Future - Basic Metabolic Panel - I agree with recommendations given today: continue vancomycin as prescribed - I agree with diagnostic tests as ordered today for evaluation for continue c.Diff infection. [place] metabolic panel - I agree with plan for follow up as noted by the resident physician: separate visit for back pain later this week - I reviewed the plan with the resident prior to patient leaving the office. * Peter Mendoza Lp, DO - 03/28/2021 10:07 AM EDT Subjective Patient ID: shay Sweeney is a 55 y.o. female. Chief Complaint Patient presents with Shoulder Pain Back Pain HPI Here for follow up Regarding diarrhea Found due to C diff Has FMLA paperwork with her to fill out Still taking Vancomycin twice daily, on slower taper for extended treatment due to continued symptoms Still has diarrhea 5x daily, but this is significantly improved overall Describes worsening abdominal pain for past few days, she is concerned its her pancreas. She's had pancreatitis 3x in the past. Describes nausea no vomiting Also at home describes some sweats and occassionally feels clammy But no measured fevers The following portions of the patient's history were reviewed and updated as appropriate: allergies, current medications, past family history, past medical history, past social history, past surgicalhistory and problem list. Patient's Medications New Prescriptions No medications on file Previous Medications BUPRENORPHINE-NALOXONE (SUBOXONE) 8-[address] 1 tablet under the tongue 2 (two) times a day . DIAZEPAM (VALIUM) 5 MG TABLET Take 1 (one) tablet (5 mg total) by mouth 2 (two) times a day as needed for anxiety (Days supply per fill: 3) . FOLIC ACID (FOLVITE) 1 MG TABLET Take 1 mg by mouth daily . GABAPENTIN (NEURONTIN) 300 MG CAPSULE Take 1 tablet in AM, 1 tablet in PM, and 2 tablets in evening. MELOXICAM (MOBIC) 15 MG TABLET Take 15 mg by mouth daily . MULTIVITAMIN (DAILY MULTIPLE) PER TABLET Take 1 tablet by mouth daily . NAPROXEN (EC NAPROSYN) 375 MG TBEC Take 1 (one) tablet (375 mg total) by mouth 2 (two) times a day as needed . PANTOPRAZOLE (PROTONIX) 40 MG TABLET Take 1 (one) tablet (40 mg total) by mouth daily . PAROXETINE (PAXIL) 40 MG TABLET Take 1 (one) tablet (40 mg total) by mouth daily . VANCOMYCIN (VANCOCIN) 125 MG CAPSULE Take 1 (one) capsule (125 mg total) by mouth daily Start: 03/27/21. VANCOMYCIN (VANCOCIN) 125 MG CAPSULE Take 1 (one) capsule (125 mg total) by mouth 4 (four) times a day for 3 days, THEN 1 (one) capsule (125 mg total) 2 (two) times a day for 8 days. Modified Medications No medications on file Discontinued Medications No medications on file Review of Systems Constitutional: Negative for fever. Eyes: Negative for visual disturbance. Respiratory: Negative for shortness of breath. Cardiovascular: Negative for chest pain. Gastrointestinal: Positive for abdominal pain, diarrhea and nausea. Genitourinary: Negative for dysuria. Skin: Negative for rash. Neurological: Negative for syncope. Objective BP 106/72 Pulse 95 Temp (!) 95.6 F (35.3 C) (Infrared) Ht 5' 1 Wt 78.9 kg (174 lb) LMP 03/24/2015 SpO2 92% BMI 32.88 kg/m Physical Exam Constitutional: Appearance: Normal appearance. HENT: Head: Normocephalic and atraumatic. Right Ear: External ear normal. Left Ear: External ear normal. Nose: Comments: Surgical Mask in place Mouth/Throat: Comments: Surgical Mask in place Eyes: Pupils: Pupils are equal, round, and reactive to light. Cardiovascular: Rate and Rhythm: Normal rate and regular rhythm. Pulses: Normal pulses. Heart sounds: Normal heart sounds. Pulmonary: Effort: Pulmonary effort is normal. No respiratory distress. Breath sounds: Normal breath sounds. Abdominal: General: Abdomen is flat. Bowel sounds are normal. Palpations: Abdomen is soft. Tenderness: There is abdominal tenderness (generalized). There is guarding. There is no rebound. Neurological: Mental Status: She is alert. Assessment/Plan: Concerned that patient is having continued diarrhea despite the extended vancomycin treatment. Will retest for C. difficile today. Given her history of IBD, unsure of her continued diarrhea is related to the infection, or her IBD. She does have GI follow-up and an upcoming colonoscopy at the end of next week Very low suspicion for pancreatitis, but due to her history and concerns will order lipase along with CMP today and CBC. Did discuss emergency precautions such as severe persistent abdominal pain, aswell as persistent nausea and vomiting. Otherwise, we did complete the rest of her [facility] paperwork today with plan to return to work withoutrestrictions on April 11 Diagnoses and all orders for this visit: C. difficile colitis Abdominal pain, unspecified abdominal location - Stool/GI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 extremity [facility] Diagnosis Chronic midline low back pain without sciatica- Primary DDD (degenerative disc disease), cervical Degeneration of cervical intervertebral disc Dyspnea on exertion Other dyspnea and 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 Somatic dysfunction of head region Somatic dysfunction of cervical region Nonallopathic lesion of cervical region, not elsewhere classified Somatic dysfunction of thoracic region Nonallopathic lesion of thoracic region, not elsewhere classified Somatic dysfunction of rib cage region Somatic dysfunction of lumbar region Nonallopathic lesion of lumbar region, not elsewhere classified Somatic dysfunction of pelvis region Nonallopathic lesion of pelvic region, not elsewhere classified Somatic dysfunction of sacral region Nonallopathic lesion of sacral region, not elsewhere classified Somatic dysfunction of upper extremity Somatic dysfunction of lower extremity Somatic dysfunction of abdominal region [facility] Diagnosis Hip mass, right- Primary [facility] Diagnosis Chronic midline low back pain without sciatica- Primary DDD (degenerative disc disease), cervical Degeneration of cervical intervertebral disc Dyspnea on exertion Other dyspnea and 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 Somatic dysfunction of head region Somatic dysfunction of cervical region Nonallopathic lesion of cervical region, not elsewhere classified Somatic dysfunction of thoracic region Nonallopathic lesion of thoracic region, not elsewhere classified Somatic dysfunction of rib cage region Somatic dysfunction of lumbar region Nonallopathic lesion of lumbar region, not elsewhere classified Somatic dysfunction of pelvis region Nonallopathic lesion of pelvic region, not elsewhere classified Somatic dysfunction of sacral region Nonallopathic lesion of sacral region, not elsewhere classified Somatic dysfunction of upper extremity Somatic dysfunction of lower extremity Somatic dysfunction of abdominal region [facility] Diagnosis [facility], right- [facility] Diagnosis Cervicalgia- Primary Chronic midline low back pain without sciatica Irritable bowel syndrome with diarrhea Irritable bowel syndrome Somatic dysfunction of head region Somatic dysfunction of cervical region Nonallopathic lesion of cervical region, not elsewhere classified Somatic dysfunction of thoracic region Nonallopathic lesion of thoracic region, not elsewhere classified Somatic dysfunction of rib cage region Somatic dysfunction of lumbar region Nonallopathic lesion of lumbar region, not elsewhere classified Somatic dysfunction of pelvis region Nonallopathic lesion of pelvic region, not elsewhere classified Somatic dysfunction of upper extremity Somatic dysfunction of lower extremity Somatic dysfunction of abdominal region Irritable bowel syndrome, unspecified type [facility] Diagnosis Cervicalgia- Primary Chronic midline low back pain without sciatica Irritable bowel syndrome with diarrhea Irritable bowel syndrome Somatic dysfunction of head region Somatic dysfunction of cervical region Nonallopathic lesion of cervical region, not elsewhere classified Somatic dysfunction of thoracic region Nonallopathic lesion of thoracic region, not elsewhere classified Somatic dysfunction of rib cage region Somatic dysfunction of lumbar region Nonallopathic lesion of lumbar region, not elsewhere classified Somatic dysfunction of pelvis region Nonallopathic lesion of pelvic region, not elsewhere classified Somatic dysfunction of upper extremity Somatic dysfunction of lower extremity Somatic dysfunction of abdominal region Irritable bowel syndrome, unspecified type [facility]* Diagnosis Upper respiratory tract infection, unspecified type- Primary [facility]* Diagnosis Upper respiratory tract infection, unspecified type- Primary [facility]* Diagnosis Nausea- Primary Nausea alone Fatigue, unspecified type Cervicalgia Depression, unspecified depression type [facility]* Diagnosis Chronic left shoulder pain- Primary Pain in joint, shoulder region Weakness of shoulder [facility]* Diagnosis Chronic left shoulder pain- Primary Pain in joint, shoulder region Weakness of shoulder [facility]* Diagnosis Weakness of shoulder- Primary Chronic midline low back pain without sciatica Cervicalgia Somatic dysfunction of head region Somatic dysfunction of pelvis region Nonallopathic lesion of pelvic region, not elsewhere classified Somatic dysfunction of lumbar region Nonallopathic lesion of lumbar region, not elsewhere classified Somatic dysfunction of upper extremity Somatic dysfunction of rib cage region Somatic dysfunction of cervical region Nonallopathic lesion of cervical region, not elsewhere classified Somatic dysfunction of thoracic region Nonallopathic lesion of thoracic region, not elsewhere classified [facility] Diagnosis Chronic pain of both shoulders- Primary Piriformis syndrome of both sides Somatic dysfunction of upper extremity Somatic dysfunction of thoracic region Nonallopathic lesion of thoracic region, not elsewhere classified Somatic dysfunction of lower extremity [facility] Diagnosis Cervicalgia [facility] Diagnosis Chronic pain of both shoulders- Primary Piriformis syndrome of both sides Somatic dysfunction of upper extremity Somatic dysfunction of thoracic region Nonallopathic lesion of thoracic region, not elsewhere classified Somatic dysfunction of lower extremity [facility] Diagnosis Chronic pain of both shoulders- Primary Somatic dysfunction of upper extremity Somatic dysfunction of lower extremity Rotator cuff tear arthropathy of right shoulder Somatic dysfunction of lumbar region Nonallopathic lesion of lumbar region, not elsewhere classified Piriformis syndrome of both sides [facility] Diagnosis Chronic pain of both shoulders- Primary Somatic dysfunction of upper extremity Somatic dysfunction of lower extremity Rotator cuff tear arthropathy of right shoulder Somatic dysfunction of lumbar region Nonallopathic lesion of lumbar region, not elsewhere classified Piriformis syndrome of both sides Somatic dysfunction of thoracic region Nonallopathic lesion of thoracic region, not elsewhere classified Somatic dysfunction of cervical region Nonallopathic lesion of cervical region, not elsewhere classified [facility] Diagnosis Cervicalgia [facility] Diagnosis Onychomycosis- Primary Dermatophytosis of nail Dry skin Other symptoms involving skin and integumentary tissues [facility]* Diagnosis Cervicalgia Depression, unspecified depression type [facility]* Diagnosis Cervicalgia [facility] Diagnosis Cervicalgia- Primary [facility] Diagnosis Acute conjunctivitis of left eye, unspecified acute conjunctivitis type- Primary [facility] Diagnosis Wellness examination- Primary Cervicalgia Depression, unspecified depression type Need for pneumococcal vaccine Need for prophylactic vaccination against streptococcus pneumoniae (pneumococcus) Flu vaccine need Mixed incontinence Mixed incontinence urge and stress (male)(female) Dyspnea on exertion Other dyspnea and respiratory abnormality Cystocele without uterine prolapse Cystocele, midline Lazy eye of left side History of cigarette smoking Encounter for screening mammogram for malignant neoplasm of breast Encounter for screening colonoscopy [facility] Diagnosis Cervicalgia- Primary Somatic dysfunction of back Somatic dysfunction of upper extremity Somatic dysfunction of lumbar region Nonallopathic lesion of lumbar region, not elsewhere classified Somatic dysfunction of thoracic region Nonallopathic lesion of thoracic region, not elsewhere classified Somatic dysfunction of cervical region Nonallopathic lesion of cervical region, not elsewhere classified Somatic dysfunction of pelvis region Nonallopathic lesion of pelvic region, not elsewhere classified [facility]* Diagnosis Cervicalgia- Primary Somatic dysfunction of back Somatic dysfunction of upper extremity Somatic dysfunction of lumbar region Nonallopathic lesion of lumbar region, not elsewhere classified Somatic dysfunction of thoracic region Nonallopathic lesion of thoracic region, not elsewhere classified Somatic dysfunction of cervical region Nonallopathic lesion of cervical region, not elsewhere classified Somatic dysfunction of pelvis region Nonallopathic lesion of pelvic region, not elsewhere classified [facility]* Diagnosis Traumatic complete tear of right rotator cuff, subsequent encounter- Primary Rotator cuff tear arthropathy of right shoulder [facility] Diagnosis Rotator cuff tear arthropathy of right shoulder- Primary Traumatic complete tear of right rotator cuff, subsequent encounter Rotator cuff tear arthropathy of right shoulder Traumatic complete tear of right rotator cuff [facility]* Diagnosis Cervicalgia Rotator cuff tear arthropathy of right shoulder Traumatic complete tear of right rotator cuff [facility] Diagnosis Rotator cuff tear arthropathy of right shoulder Traumatic complete tear of right rotator cuff Depression, unspecified depression type Rotator cuff tear arthropathy of right shoulder Traumatic complete tear of right rotator cuff, subsequent encounter [facility] Diagnosis Rotator cuff tear arthropathy of right shoulder Traumatic complete tear of right rotator cuff Pre-op testing- Primary Unspecified pre-operative examination Rotator cuff syndrome of right shoulder Rotator cuff tear arthropathy of both shoulders Opiate abuse, episodic (HCC) Rotator cuff tear arthropathy of right shoulder Traumatic complete tear of right rotator cuff, subsequent encounter [facility] Diagnosis Rotator cuff tear arthropathy of right shoulder Traumatic complete tear of right rotator cuff Depression, unspecified depression type Rotator cuff tear arthropathy of right shoulder Traumatic complete tear of right rotator cuff, subsequent encounter [facility]* Diagnosis S/P right rotator cuff repair- Primary [facility]* Diagnosis S/P right rotator cuff repair- Primary [facility]* Diagnosis Cervicalgia documented in this [facility]* Diagnosis Cervicalgia documented in this encounter [facility]* Diagnosis Cervicalgia documented in this encounter [facility] note* Diagnosis Onychomycosis Dermatophytosis of nail Cervicalgia documented in this encounter [facility] note* Diagnosis Mixed incontinence- Primary Mixed incontinence urge and stress (male)(female) documented in this encounter [facility] note* Diagnosis Well adult exam- Primary Routine general medical examination at [facility] Left sided sciatica Sciatica Osteoarthrosis, unspecified whether generalized or localized, other specified sites Recurrent major depressive disorder, in remission (HCC) Ulcerative pancolitis without complication (HCC) History of migraine Personal history of other disorders of nervous system and sense organs ARAM (generalized anxiety disorder) Generalized anxiety disorder OAB (overactive bladder) Hypertonicity of bladder Screening mammogram, encounter for Dermatitis Contact dermatitis and other eczema, due to unspecified cause documented in this encounter [facility] note* Diagnosis Anxiety- Primary Anxiety state, unspecified Mixed incontinence Mixed incontinence urge and stress (male)(female) Cervicalgia Depression, unspecified depression type Onychomycosis Dermatophytosis of nail documented in this encounter [facility] note* Diagnosis Left sided sciatica Sciatica documented in this encounter [facility] note* Diagnosis Left sided sciatica Sciatica documented in this encounter [facility] note* Diagnosis Diarrhea, unspecified type- Primary Left sided sciatica Sciatica Itching Unspecified pruritic disorder Osteoarthrosis, unspecified whether generalized or localized, other specified sites OAB (overactive bladder) Hypertonicity of bladder ARAM (generalized anxiety disorder) Generalized anxiety disorder Hyperglycemia Other abnormal glucose Leukemoid reaction Screening for lipid disorders Herpes simplex vulvovaginitis documented in this encounter [facility] note* Diagnosis Left sided sciatica Sciatica [facility] [place] [facility]* Diagnosis Poison cheo Contact dermatitis and other eczema due to plants (except food) documented in this encounter [facility] note* Diagnosis Left sided sciatica Sciatica documented in this encounter [facility] note* Diagnosis Ulcerative colitis with rectal bleeding, unspecified location (HCC)- Primary Poison cheo Contact dermatitis and other eczema due to plants (except food) ARAM (generalized anxiety disorder) Generalized anxiety disorder Hypertension, essential Unspecified essential hypertension Herpes simplex vulvovaginitis Toenail fungus Dermatophytosis of nail documented in [facility] [place] [facility]* Diagnosis Left sided sciatica Sciatica documented in this encounter [facility] note* Diagnosis Left sided sciatica Sciatica documented in this encounter [facility] note* Diagnosis Itching Unspecified pruritic disorder Left sided sciatica Sciatica documented [facility] [place] [facility]* Diagnosis Toenail fungus Dermatophytosis of nail documented in this [facility] [place] [facility]* Diagnosis ARAM (generalized anxiety disorder) Generalized anxiety disorder Left sided sciatica Sciatica Indigestion Dyspepsia and other specified disorders of function of stomach Itching Unspecified pruritic disorder Osteoarthrosis, unspecified whether generalized or localized, other specified sites OAB (overactive bladder) Hypertonicity of bladder Herpes simplex vulvovaginitis documented [facility] [place] [facility]* Diagnosis Chest pain, unspecified type- Primary ARAM (generalized anxiety disorder) Generalized anxiety disorder Indigestion Dyspepsia and other specified disorders of function of stomach Myalgia Mylagia and myositis, unspecified Onychomycosis Dermatophytosis of nail Class 1 obesity due to excess calories with body mass index (BMI) of 30.0 to 30.9 in adult, unspecified whether serious comorbidity present documented [facility] this [facility] [place] [facility]* Diagnosis Left sided sciatica Sciatica documented in this encounter [facility] note* Diagnosis Encounter for screening mammogram for breast cancer documented in this encounter [facility] note* Diagnosis Left sided sciatica Sciatica Osteoarthrosis, unspecified whether generalized or localized, other specified sites documented in this encounter [facility] noteNo assessment information availableWReg[facility] Work Phone: Evaluation note* Diagnosis Indigestion Dyspepsia and other specified disorders of function of stomach documented in this encounter [facility] note* Diagnosis Screening for lipid disorders- Primary Lumbar pain Lumbago Neck pain Cervicalgia Hyperglycemia Other abnormal glucose Osteoarthrosis, unspecified whether generalized or localized, other specified sites Screening for blood disease Screening for unspecified disorder of blood and blood-forming organs Screening for endocrine, metabolic and immunity disorder documented in this encounter [facility] note* Diagnosis ARAM (generalized anxiety disorder) Generalized anxiety disorder Dermatitis Contact dermatitis and other eczema, due to unspecified cause Indigestion Dyspepsia and other specified disorders of function of stomach Itching Unspecified pruritic disorder Left sided sciatica Sciatica Osteoarthrosis, unspecified whether generalized or localized, other specified sites OAB (overactive bladder) Hypertonicity of bladder Herpes simplex vulvovaginitis documented in this encounter [facility] Discharge instructions* Attachments The following attachments cannot be sent through Care Everywhere. * C Dif Colitis (Tanzanian) [facility]* Attachments The following attachments cannot be sent through Care Everywhere. * Back Pain (Tanzanian) * Back: Stretches: Exercises (Tanzanian) [facility] for referral (narrative)* Diagnostic Procedure Only (Routine) - Pending Review Specialty Diagnoses / Procedures Referred By Edwin weir Referred To Contact [facility] Diagnoses Screening mammogram, encounter for Procedures JAMEL SCREENING SCREENING MAMMOGRAPHY BI 2-VIEW BREAST INC CAD Jennifer Hernandez DO [address] [place] [address] [facility] [address] [place] [address] Referral ID Status Reason Start Date Expiration Date Visits Requested Visits Authorized [id number] Pending Review Auto-Generat ed Referral 09/26/2023 10/25/2024 1 1 [facility] for referral (narrative)* Consultation (Routine) - Closed Specialty Diagnoses / Procedures Referred By Edwin weir Referred To Contact Regional Branch Manager Diagnoses Anxiety Beto Lance DO [address] [place] [address] Referral ID Status Reason Start Date Expiration Date V isits Requested Visits Authorized [id number] Closed Specialty Services Required/Constance ent's Best Interest 05/08/2023 05/07/2024 1 1 [facility] for referral (narrative)* Diagnostic Procedure Only (Routine) - New Request Specialty Diagnoses / Procedures Referred By Contac t Referred To Contact [facility] Diagnoses Encounter for screening mammogram for breast cancer Procedures JAMEL SCREENING W MARQUES SCREENING DIGITAL BREAST TOMOSYNTHESIS BI SCREENING MAMMOGRAPHY BI 2-VIEW BREAST INC CAD Jennifer Hernandez DO [address] [place] [address] [facility] [address] [place] [address] Referral ID Status Reason Start Date Expiration Date Visits Requested Visits Authorized [id number] New Request Auto-Generat ed Referral 10/30/2025 1 1 [facility] for referral (narrative)No reason for referral information availableWRegency [facility] Work Phone: Summary Purpose Family History No Family History Records FoundNo Family History Records FoundNo Family History Records FoundNo Family History Records FoundNo Family History Records FoundNo Family History Records FoundNo Family History Records FoundNo Family History Records FoundNo Family History Records FoundNo Family History Records Found Advance Directives Documents on File Type Date Recorded 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 Expl 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 Advance Directives and Living Will Latest Code Status on File Code Status Date Activated Date Inactivated Comments Full Code 05/24/2018 8:07 AM 08/19/2018 12:45 PM Latest Code Status on File Code Status Date Activated Date Inactivated Comments Full Code 05/24/2018 8:07 AM 08/19/2018 12:45 PM Documents on File Type Date Recorded 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 Expl 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 Advance Directives and Livin g Will 07/25/2020 7:07 PM Documents on File Type Date Recorded 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 Expl 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 Advance Directives and Livin g Will 10/24/2020 6:59 PM Documents on File Type Date Recorded 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 Expl 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 Advance Directives and Living Will Documents on File Type Date Recorded 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 Expl 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 Advance Directives and Livin g Will 03/01/2021 5:27 PM Latest Code Status on File Code Status Date Activated Date Inactivated Comments Full Code 03/01/2021 8:46 PM Full Code 05/24/2018 8:07 AM 08/19/2018 12:45 PM Latest Code Status on File Code Status Date Activated Date Inactivated Comments Full Code 03/01/2021 8:46 PM 03/05/2021 1:36 PM Documents on File Type Date Recorded 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 Expl 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 Advance Directives and Livin g Will 03/22/2021 6:55 PM Documents on File Type Date Recorded 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 Expl anation Advance Directives and Livin g Will 04/22/2021 2:35 PM Latest Code Status on File Code Status Date Activated Date Inactivated Comments Full Code 03/01/2021 8:46 PM 03/05/2021 1:36 PM Full Code 05/24/2018 8:07 AM 08/19/2018 12:45 PM Documents on File Type Date Recorded 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 Expl anation Advance Directives and Livin g Will 05/02/2021 2:35 PM Documents on File Type Date Recorded 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 Expl anation Advance Directives and Livin g Will 05/02/2021 2:35 PM Documents on File Type Date Recorded 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 Expl anation Advance Directives and Livin g Will 10/04/2021 8:24 AM Documents on File Type Date Recorded 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 Expl anation Advance Directives and Livin g Will 10/04/2021 8:24 AM Latest Code Status on File Code Status Date Activated Date Inactivated Comments Full Code 03/01/2021 8:46 PM 03/05/2021 1:36 PM Code Status History Code Status Date Activated Date Inactivated Comments Full Code 05/24/2018 8:07 AM 08/19/2018 12:45 PM Latest Code Status on File Code Status Date Activated Date Inactivated Comments Full Code 03/01/2021 8:46 PM 03/05/2021 1:36 PM Code Status History Code Status Date Activated Date Inactivated Comments Full Code 05/24/2018 8:07 AM 08/19/2018 12:45 PM Advance Directive Response Recorded Date/ Time Living Will No November 03 3:23pm Power of Appointment Manager No November 03, 2024 3:23pm Living Will No November 13 4:33pm Power of Appointment Manager No November 13, 2024 4:33pm Advance Directive Response Recorded Date/ Time Living Will No November 13 4:33pm Do you have a Healthcare Power of Appointment Manager? No November 13, 2024 4:33pm Discharge Instructions * Shira Molina PA-C - 04/10/2018 Formatting of this note may be different from the original. [facility] Please follow up with your physician. If you do not have one, here is a list of offices which may be able to offer some financial assistance. [facility] [phone] [address], [place] [address] [facility] [phone] [address] [place] [address] [facility] [phone] [employer] [phone] Various locations, call for information. [facility] [phone] Various locations, call for information. [facility] [phone] [address] [place] [address] [facility] [phone] [address] [place], [place] [address] [facility] [phone] [address] [place], [place] [address] [facility] [phone] [address] [place], [place] [address] [facility] [phone] [address] [place], [place] [address] [facility] [phone] [address], [place] [address] [facility] [employer] [phone] [place], [place] [address] [facility] [phone] [place], [place] [address] [facility] (call for eligibility) [phone] Various locations, call for information. Uterine Prolapse: Care Instructions Your Care Instructions When the uterus moves down in the pelvis and starts to press into the vagina, it is called uterine prolapse. This happens when the pelvic muscles and tissues get weak. Women often have this problem after they have children or when they get older. It can also happen if you are overweight or you have a long-term cough. These put extra pressure on the uterus. This problem may cause you to leak urine. Or you may have trouble passing urine or stool. You may feel pain during sex. But in most cases, prolapse doesn't cause more serious health problems. You may feel better if you change how you do some of your daily activities. And you can try exercises to make your pelvic muscles strong. But if these don't help, you may want to talk with your doctor about surgery. Follow-up care is a gauthier part of your treatment and safety. Be sure to make and go to all appointments, and call your doctor if you are having problems. It's also a good idea to know your test resultsand keep a list of the medicines you take. How can you care for yourself at home? Do not do activities that put pressure on your pelvic muscles. This includes heavy lifting and straining. Do exercises to tighten and strengthen your pelvic muscles. These are called Kegel exercises. To dothem: Squeeze the muscles you use to stop urine. Your belly and thighs should not move. Hold the squeeze for 3 seconds. Then relax for 3 seconds. Start with 3 seconds. Then add 1 second each week until you are able to squeeze for 10 seconds. Repeat this 10 to 15 times. Do these exercises 3 or more times a day. Take an eglm-rkj-sqrysqe pain medicine, such as acetaminophen (Tylenol), ibuprofen (Advil, Motrin),or naproxen (Aleve), to relieve pain. Read and follow all instructions on the label. Do not take two or more pain medicines at the same time unless the doctor told you to. Many pain medicines have acetaminophen, which is Tylenol. Too much acetaminophen (Tylenol) can be harmful. Talk with your doctor about a vaginal pessary. This is a device that you put in your vagina to support the uterus. Your doctor can teach you how and when to remove it. You will also learn how to clean it and put it back in. If your doctor prescribes estrogen cream for your vagina, use it exactly as prescribed. To relieve pressure on your vagina, lie down and put a pillow under your knees. Or you can lie on your side and bring your knees up to your chest. If you are overweight, talk to your doctor about safe ways to lose weight. When should you call for help? Watch closely for changes in your health, and be sure to contact your doctor if: ? You have new urinary symptoms. These may include leaking urine, having pain when urinating, or feeling like you need to urinate often. ? You have trouble passing stool. ? You have pain or a feeling of fullness in your vagina. ? You do not get better as expected. Where can you learn more? Log into your personal health record on [email or web address] and enter X924 in the Education box to learn more about Uterine Prolapse: Care Instructions. Current as of: July 27, 2017 Content Version: 08.27-2018 [employer]. Care instructions adapted under license by your healthcare professional. If you have questions about a medical condition or this instruction, always ask your healthcare professional. [employer] disclaims any warranty or liability for your use of this information. in this encounter* Attachments The following attachments cannot be sent through Care Everywhere. * Low Back Pain: Exercises (Tanzanian) * Back Pain (Tanzanian) documented in this encounter* Attachments The following attachments cannot be sent through Care Everywhere. * Lacerations: Open (Tanzanian) documented in this encounter Assessments Diagnosis Female genital prolapse, uns pecified type - Primary Diagnosis Cystocele without uterine pr olapse - Primary Cystocele, midline Mixed incontinence Mixed incontinence urge and stress (male)(female) Herpes genitalis in women Unspecified genital herpes Obesity (BMI 30.0-34.9) Screening for cervical cance r Screening for malignant neoplasm of the cervix Tobacco use disorder Postmenopausal status (age-r elated) (natural) Asymptomatic postmenopausal status (age-related) (natural) Herpes simplex vulvovaginiti s Diagnosis Rash and nonspecific skin er uption - Primary Rash and other nonspecific skin eruption HSV infection Herpes simplex without mention of complication Diagnosis Cellulitis, unspecified cell ulitis site - Primary Diagnosis Herpes simplex vulvovaginiti s - Primary Cellulitis of labia Cystocele without uterine pr olapse Cystocele, midline Chronic midline low back lyle n without sciatica Vitamin D deficiency Gout, unspecified cause, uns pecified chronicity, unspecified site Preventive measure Need for unspecified prophylactic measure Diagnosis Ulcerative colitis with comp lication, unspecified location (HCC) - Primary Lymph nodes enlarged Enlargement of lymph nodes Reflux esophagitis Gout, unspecified cause, uns pecified chronicity, unspecified site Neuropathy Mononeuritis of unspecified site Diagnosis Lymph nodes enlarged Enlargement of lymph nodes Diagnosis Swelling of lymph nodes Enlargement of lymph nodes Diagnosis Impaired fasting glucose- Primary Prediabetes Other abnormal glucose Tobacco use disorder ARAM (Generalized Anxiety Disorder) Generalized anxiety disorder Osteoarthritis, unspecified osteoarthritis type, unspecified site Snoring Other dyspnea and respiratory abnormality Diagnosis Chronic midline low back pain without sciatica- Primary Gout, unspecified cause, unspecified chronicity, unspecified site Prediabetes Other abnormal glucose Snoring Other dyspnea and respiratory abnormality Diagnosis Acute non-recurrent frontal sinusitis- Primary Chronic midline low back pain without sciatica Somatic dysfunction of head region Somatic dysfunction of cervical region Nonallopathic lesion of cervical region, not elsewhere classified Somatic dysfunction of thoracic region Nonallopathic lesion of thoracic region, not elsewhere classified Somatic dysfunction of lumbar region Nonallopathic lesion of lumbar region, not elsewhere classified Prediabetes Other abnormal glucose Hyperkalemia Hyperpotassemia Diagnosis Chronic midline low back pain without sciatica Arthralgia of right knee Prediabetes Other abnormal glucose Diagnosis Acute exacerbation of chronic low back pain- Primary Diagnosis Moderate episode of recurrent major depressive disorder (HCC)- Primary Chronic midline low back pain without sciatica Need for influenza vaccination Need for prophylactic vaccination and inoculation against influenza Somatic dysfunction of lumbar region Nonallopathic lesion of lumbar region, not elsewhere classified Somatic dysfunction of thoracic region Nonallopathic lesion of thoracic region, not elsewhere classified ARAM (Generalized Anxiety Disorder) Generalized anxiety disorder Diagnosis Laceration of right hand without foreign body, initial encounter- Primary Diagnosis [place] grade 2 cystocele Rectocele Polyuria Chronic midline low back pain without sciatica Skin lesion of breast Instructions * Patient Instructions - Cheng Salinas DO - 04/15/2018 2:44 PM EDT Learning About Vitamin D Why is it important to get enough vitamin D? Your body needs vitamin D to absorb calcium. Calcium keeps your bones and muscles, including your heart, healthy and strong. If your muscles don't get enough calcium, they can cramp, hurt, or feel weak. You may have long-term (chronic) muscle aches and pains. If you don't get enough vitamin D throughout life, you have an increased chance of having thin and brittle bones (osteoporosis) in your later years. Children who don't get enough vitamin D may not grow as much as others their age. They also have a chance of getting a rare disease called rickets. Itcauses weak bones. Vitamin D and calcium are added to many foods. And your body uses sunshine to make its own vitamin D. How much vitamin D do you need? The [place] [employer] recommends that people ages 1 through 70 get 600 IU (international units)every day. Adults 71 and older need 800 IU every day. Blood tests for vitamin D can check your vitamin D level. But there is no standard normal range used by all laboratories. The [place] [employer] recommends a blood level of 20 ng/mL of vitamin D for healthy bones. And most people in the [place] and [place] meet this goal. How can you get more vitamin D? Foods that contain vitamin D include: [place], tuna, and mackerel. These are some of the best foods to eat when you need to get more vitamin D. Cheese, egg yolks, and beef liver. These foods have vitamin D in small amounts. Milk, soy drinks, orange juice, yogurt, margarine, and some kinds of cereal have vitamin D added tothem. Some people don't make vitamin D as well as others. They may have to take extra care in getting enough vitamin D. Things that reduce how much vitamin D your body makes include: Dark skin, such as many Americans have. Age, especially if you are older than 65. Digestive problems, such as Crohn's or celiac disease. Liver and kidney disease. Some people who do not get enough vitamin D may need supplements. Are there any risks from taking vitamin D? Too much vitamin D: Can damage your kidneys. Can cause nausea and vomiting, constipation, and weakness. Raises the amount of calcium in your blood. If this happens, you can get confused or have an irregular heart rhythm. Vitamin D may interact with other medicines. Tell your doctor about all of the medicines you take, including wbiw-avf-nykxyfw drugs, herbs, and pills. Tell your doctor about all of your current medical problems. Learning About Calcium What is calcium? Calcium keeps your bones and muscles including your heart healthy and strong. Your body needs vitamin D to absorb calcium. People who don't get enough calcium and vitamin D throughout life have an increased chance of having thin and brittle bones (osteoporosis) in their later years. Thin and brittle bones break easily. They can lead to serious injuries. This is why it's important for you to get enough calcium and vitamin D as a child and as an adult. It helps keep your bones strong as you get older. And it protects you against possible breaks. Your body also uses vitamin D to help your muscles absorb calcium and work well. If your muscles don't get enough calcium, then they can cramp, hurt, or feel weak. You may have long-term (chronic) muscle aches and pains. How much calcium do you need? How much calcium you need each day changes as you age. It should always be taken along with vitaminD, because the body needs vitamin D in order to absorb calcium. The [place] [employer] recommends the following amounts of calcium each day. Ages 1 to 3 years: 700 milligrams Ages 4 to 8 years: 1,000 milligrams Ages 9 to 18 years: 1,300 milligrams Ages 19 to 50 years: 1,000 milligrams Males 51 to 70 years: 1,000 milligrams Females 51 to 70 years: 1,200 milligrams Ages 71 and older: 1,200 milligrams Women who are or breast-feeding need the same amount of calcium and vitamin D as other women their age. How can you get enough calcium? Calcium is in foods such as milk, cheese, and yogurt. Vegetables like broccoli, kale, and [place]ian cabbage also have it. You can get calcium if you eat the soft edible bones in canned sardines and canned salmon. Foods with added (fortified) calcium include some cereals, juices, soy drinks, and tofu.The food label will show how much of it was added. You can figure out how much calcium is in a food by looking at the percent daily value section on the nutrition facts label. The food label assumes the daily value of calcium is 1,000 mg. So if one serving of a food has a daily value of 20% of calcium, that food has 200 mg of calcium in one serving. Some people who don't get enough calcium may need supplements. You can buy them as citrate or carbonate. Calcium carbonate is best absorbed when it is taken with food. Calcium citrate can be absorbedwell with or without food. Spreading calcium out over the course of the day can reduce stomach upset. And your body absorbs it better when it is spread over the day. Try not to take more than 500 mg of calcium supplement at a time. Where can you learn more? Log into your personal health record on https://[employer]hart.Radiation Watch and enter S264 in the Education box to learn more about Learning About Calcium. Current as of: September 04, 2014 Content Version: 107 7674-6751 [employer]. Care instructions adapted under license by your healthcare professional. If you have questions about a medical condition or this instruction, always ask your healthcare professional. [employer] disclaims any warranty or liability for your use of this information. in this encounter* Patient Instructions - David Leslie PA-C - 03/28/2018 8:08 PM EDT Take prescribed medication(s) as directed. Take OTC claritin/nilay/zyrtec daily and/or OTC benadryl at night as needed. Follow up with your PCP if no improvement in 3-5 days for a recheck, sooner if symptoms worsen before then. in this encounter* Patient Instructions* Trisha Ely DO - 11/11/2018 4:07 PM EST Learning About Diabetes Food Guidelines Your Care Instructions Meal planning is important to manage diabetes. It helps keep your blood sugar at a target level (which you set with your doctor). You don't have to eat special foods. You can eat what your family eats, including sweets once in a while. But you do have to pay attention to how often you eat and how much you eat of certain foods. You may want to work with a dietitian or a certified surgical tech/first assistant (CDE) to help you plan mealsand snacks. A dietitian or CDE can also help you lose weight if that is one of your goals. What should you know about eating carbs? Managing the amount of carbohydrate (carbs) you eat is an important part of healthy meals when you have diabetes. Carbohydrate is found in many foods. Learn which foods have carbs. And learn the amounts of carbs in different foods. ? Bread, cereal, pasta, and rice have about 15 grams of carbs in a serving. A serving is 1 slice ofbread (1 ounce), cup of cooked cereal, or 1/3 cup of cooked pasta or rice. ? Fruits have 15 grams of carbs in a serving. A serving is 1 small fresh fruit, such as an apple ororange; of a banana; cup of cooked or canned fruit; cup of fruit juice; 1 cup of melon or raspberries; or 2 tablespoons of dried fruit. ? Milk and kd-eclrn-cdhte yogurt have 15 grams of carbs in a serving. A serving is 1 cup of milk or2/3 cup of wr-fcitf-tsrov yogurt. ? Starchy vegetables have 15 grams of carbs in a serving. A serving is cup of mashed potatoes or sweet potato; 1 cup winter squash; of a small baked potato; cup of cooked beans; or cup cooked corn orgreen peas. Learn how much carbs to eat each day and at each meal. A dietitian or CDE can teach you how to keeptrack of the amount of carbs you eat. This is called carbohydrate counting. If you are not sure how to count carbohydrate grams, use the Plate Method to plan meals. It is a good, quick way to make sure that you have a balanced meal. It also helps you spread carbs throughout the day. ? Divide your plate by types of foods. Put non-starchy vegetables on half the plate, meat or other protein food on one-quarter of the plate, and a grain or starchy vegetable in the final quarter of the plate. To this you can add a small piece of fruit and 1 cup of milk or yogurt, depending on how many carbs you are supposed to eat at a meal. Try to eat about the same amount of carbs at each meal. Do not save up your daily allowance of carbs to eat at one meal. Proteins have very little or no carbs per serving. Examples of proteins are beef, chicken, turkey, fish, eggs, tofu, cheese, cottage cheese, and peanut butter. A serving size of meat is 3 ounces, which is about the size of a deck of cards. Examples of meat substitute serving sizes (equal to 1 ounceof meat) are 1/4 cup of cottage cheese, 1 egg, 1 tablespoon of peanut butter, and cup of tofu. How can you eat out and still eat healthy? Learn to estimate the serving sizes of foods that have carbohydrate. If you measure food at home, it will be easier to estimate the amount in a serving of restaurant food. If the meal you order has too much carbohydrate (such as potatoes, corn, or baked beans), ask to have a low-carbohydrate food instead. Ask for a salad or green vegetables. If you use insulin, check your blood sugar before and after eating out to help you plan how much toeat in the future. If you eat more carbohydrate at a meal than you had planned, take a walk or do other exercise. Thiswill help lower your blood sugar. What else should you know? Limit saturated fat, such as the fat from meat and dairy products. This is a healthy choice becausepeople who have diabetes are at higher risk of heart disease. So choose lean cuts of meat and nonfat or low-fat dairy products. Use olive or canola oil instead of butter or shortening when cooking. Don't skip meals. Your blood sugar may drop too low if you skip meals and take insulin or certain medicines for diabetes. Check with your doctor before you drink alcohol. Alcohol can cause your blood sugar to drop too low. Alcohol can also cause a bad reaction if you take certain diabetes medicines. Follow-up care is a gauthier part of your treatment and safety. Be sure to make and go to all appointments, and call your doctor if you are having problems. It's also a good idea to know your test resultsand keep a list of the medicines you take. Where can you learn more? Log into your personal health record on https://[employer].Radiation Watch and enter I147 in the Education box to learn more about Learning About Diabetes Food Guidelines. Current as of: May 15, 2018 Content Version: 11.9 9996-6158 [employer]. Care instructions adapted under license by your healthcare professional. If you have questions about a medical condition or this instruction, always ask your healthcare professional. [employer] disclaims any warranty or liability for your use of this information. in this encounter* Patient Instructions* Mahsa Campoverde DO - 01/02/2019 10:27 AM EDT [facility] [phone] Snoring: Care Instructions Your Care Instructions Snoring is a noise that you may make while breathing during sleep. You snore when the flow of air from your mouth or nose to your lungs makes the tissues of your throat vibrate while you sleep. This usually is caused by a blockage or narrowing in your nose, mouth, or throat (airway). Snoring can be soft, loud, raspy, harsh, hoarse, or fluttering. Your bed partner may notice that you sleep with your mouth open and that you are restless while sleeping. If snoring interferes with your or your bed partner's sleep, either or both of you may feel tired during the day. You may be able to help reduce your snoring by making changes in your activities and in the way yousleep. Follow-up care is a gauthier part of your treatment and safety. Be sure to make and go to all appointments, and call your doctor if you are having problems. It's also a good idea to know your test resultsand keep a list of the medicines you take. How can you care for yourself at home? Lose weight, if needed. Many people who snore are overweight. Weight loss can help reduce the narrowing of the airway and might reduce or stop snoring. Limit the use of alcohol and medicines. Drinking a lot of alcohol or taking certain medicines, especially sleeping pills or tranquilizers, before sleep may make snoring worse. Go to bed at the same time each night, and get plenty of sleep. You may snore more when you have not had enough sleep. Sleep on your side. Sleeping on your side may stop snoring. Try sewing a pocket in the middle of the back of your pajama top, putting a tennis ball into the pocket, and stitching it closed. This willhelp keep you from sleeping on your back. Treat breathing problems. Breathing problems caused by colds or allergies can disturb airflow. Thiscan lead to snoring. Use a device that helps keep your airway open during sleep. This could be a device that you put in your mouth. Other examples include strips or disks that you use on your nose. Do not smoke. Smoking can make snoring worse. If you need help quitting, talk to your doctor about stop-smoking programs and medicines. These can increase your chances of quitting for good. Raise the head of your bed 4 to 6 inches by putting bricks under the legs of the bed. This may prevent your tongue from falling toward the back of the throat, which can make a blocked or narrow airway worse. Putting pillows under your head will not help. When should you call for help? Watch closely for changes in your health, and be sure to contact your doctor if: You snore, and you feel sleepy during the day. Your sleeping partner or you notice that you gasp, choke, or stop breathing during sleep. You do not get better as expected. Where can you learn more? Log into your personal health record on https://[employer].Radiation Watch and enter J563 in the Education box to learn more about Snoring: Care Instructions. Current as of: June 26, 2018 Content Version: 11.9 [employer]. Care instructions adapted under license by your healthcare professional. If you have questions about a medical condition or this instruction, always ask your healthcare professional. [employer] disclaims any warranty or liability for your use of this information. in this encounter* Patient Instructions* Jayme Villa, - 04/10/2019 10:55 AM EDT Sinusitis: Care Instructions Your Care Instructions Sinusitis is an infection of the lining of the sinus cavities in your head. Sinusitis often followsa cold. It causes pain and pressure in your head and face. In most cases, sinusitis gets better on its own in 1 to 2 weeks. But some mild symptoms may last for several weeks. Sometimes antibiotics are needed. Follow-up care is a gauthier part of your treatment and safety. Be sure to make and go to all appointments, and call your doctor if you are having problems. It's also a good idea to know your test resultsand keep a list of the medicines you take. How can you care for yourself at home? Take an koct-duy-dxsohpe pain medicine, such as acetaminophen (Tylenol), ibuprofen (Advil, Motrin),or naproxen (Aleve). Read and follow all instructions on the label. If the doctor prescribed antibiotics, take them as directed. Do not stop taking them just because you feel better. You need to take the full course of antibiotics. Be careful when taking qycg-ehq-cfnyajk cold or flu medicines and Tylenol at the same time. Many ofthese medicines have acetaminophen, which is Tylenol. Read the labels to make sure that you are nottaking more than the recommended dose. Too much acetaminophen (Tylenol) can be harmful. Breathe warm, moist air from a steamy shower, a hot bath, or a sink filled with hot water. Avoid cold, dry air. Using a humidifier in your home may help. Follow the directions for cleaning the machine. Use saline (saltwater) nasal washes to help keep your nasal passages open and wash out mucus and bacteria. You can buy saline nose drops at a grocery store or drugstore. Or you can make your own at home by adding 1 teaspoon of salt and 1 teaspoon of baking soda to 2 cups of distilled water. If you make your own, fill a bulb syringe with the solution, insert the tip into your nostril, and squeeze gently. Blow your nose. Put a hot, wet towel or a warm gel pack on your face 3 or 4 times a day for 5 to 10 minutes each time. Try a decongestant nasal spray like oxymetazoline (Afrin). Do not use it for more than 3 days in a row. Using it for more than 3 days can make your congestion worse. When should you call for help? Call your doctor now or seek immediate medical care if: You have new or worse swelling or redness in your face or around your eyes. You have a new or higher fever. Watch closely for changes in your health, and be sure to contact your doctor if: You have new or worse facial pain. The mucus from your nose becomes thicker (like pus) or has new blood in it. You are not getting better as expected. Where can you learn more? Log into your personal health record on https://[employer]hart.Radiation Watch and enter I933 in the Education box to learn more about Sinusitis: Care Instructions. Current as of: August 11, 2018 Content Version: 12.0 6071-5457 [employer]. Care instructions adapted under license by your healthcare professional. If you have questions about a medical condition or this instruction, always ask your healthcare professional. [employer] disclaims any warranty or liability for your use of this information. documented in this encounter Hospital Course * Santo Clement MD - 05/26/2018 11:49 AM EDT Formatting of this note may be different from the original. DISCHARGE SUMMARY Patient: Zofia Sweeney Account: [id number] Admitted: 05/24/2018 Discharge Date/Time: No discharge date for patient encounter. Clinical Summary Perpetual Assessment: Patient is a 52 y.o. female who presented to [facility] on 05/24/2018 with PMHx of HSV 2, HTN and pancreatitis with c/o left labial pain. Discharge Diagnoses and Associated Hospital Course: Left labial cellulitis -Presented c/o pain to the left labia that started on 05/21. Patient states it started as a reddenedarea but then looks like a garcia that she squeezed. Patient had brownish/ yellow drainage from the area. Patient states at the end of March she had a rash after she switched laundry detergents and when she went to the Urgent Care in October they said it was just razor burn. - CTAP noted asymmetric enlargement and stranding of the subcutaneous fat at the left labia majora.There is no underlying organized fluid collection or abscess present. There is no deep extension ofthis process. A few small reactive nodes are present at the left inguinal level. Findings likely represent focal cellulitis. Remainder of the abdomen and pelvis is otherwise largely unremarkable. -Leukocytosis resolved, afebrile -Given Clindamycin in ER, then started on Vancomycin-->devel/oped reaction and it was stopped -denies any prior history of MRSA infections, was started Ancef 05/25, noted improvement today -Surgery following--no surgical intervention advised at this time -discharge on Keflex x 7 days -pain meds prn H/o HSV: atient states she hasn't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 04/19/21 [address] Assistant Relationship Specialty Start Date End Date Mateusz Linares DO [address] [place] [address] PCP - General Family Medicine 04/12/22 Vikas Bermudez DO [address] [place] [address] PCP - ARCHIE Attributed Provider - [facility] 10/22/21 10/21/50 Brennan Martin MD [address] [phone] Referring Physician Obstetrics/Gynecolog y 04/19/21 Court Assistant Relationship Specialty Start Date End Date Mateusz Linares DO [address] [place] [address] PCP - General Family Medicine 04/12/22 Vikas Bermudez, [address] [place] [address] PCP - ARCHIE Attributed Provider - [facility] 10/22/21 10/21/50 Brennan Martin MD [address] [phone] Referring Physician Obstetrics/Gynecolog y 04/19/21 Court Assistant Relationship Specialty Start Date End Date Mateusz Linares DO [address] [place] [address] PCP - General Family Medicine 04/12/22 Vikas Bermudez, DO [address] [place] [address] PCP - ARCHIE Attributed Provider - [facility] 10/22/21 10/21/50 Brennan Martin MD [address] [phone] Referring Physician Obstetrics/Gynecolog y 04/19/21 Court Assistant Relationship Specialty Start Date End Date Mateusz Linares DO 2029 [facility] [address] [place] [address] PCP - General Family Medicine 04/12/22 Vikas Bermudez DO [address] [place] [address] PCP - ARCHIE Attributed Provider - [facility] 10/22/21 10/21/50 Brennan Martin MD [address] [place] [phone] Referring Physician Obstetrics/Gynecolog y 04/19/21 Court Assistant Relationship Specialty Start Date End Date Jennifer Hernandez DO [address] [place] [address] PCP - General Family Medicine 09/26/23 Court Assistant Relationship Specialty Start Date End Date Jennifer Hernandez DO [address] [place] [address] PCP - General Family Medicine 09/26/23 Court Assistant Relationship Specialty Start Date End Date Jennifer Hernandez DO [address] [place] [address] PCP - General Family Medicine 09/26/23 Court Assistant Relationship Specialty Start Date End Date Mateusz Linares DO [address] [address] PCP - General Family Medicine 04/12/22 Ariela Baxter DO [address] [phone] PCP - ARCHIE Attributed Provider - [facility] 10/22/21 08/20/23 Brennan Martin MD [address] [place] [phone] Referring Physician Obstetrics/Gynecolog y 04/19/21 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 05/09/23 07/12/23 Court Assistant Relationship Specialty Start Date End Date Jennifer Hernandez DO [address] [facility] [place] [address] PCP - General Family Medicine 09/26/23 Court Assistant Relationship Specialty Start Date End Date Jennifer Hernandez DO [address] [facility] [place] [address] PCP - General Family Medicine 09/26/23 Court Assistant Relationship Specialty Start Date End Date Jennifer Hernandez DO [address] [facility] [place] [address] PCP - General Family Medicine 09/26/23 Court Assistant Relationship Specialty Start Date End Date Jennifer Hernandez DO [address] [facility] [place] [address] PCP - General Family Medicine 09/26/23 Court Assistant Relationship Specialty Start Date End Date Jennifer Hernandez DO [address] [facility] [place] [address] PCP - General Family Medicine 09/26/23 Court Assistant Relationship Specialty Start Date End Date Jenniefr Hernandez DO [address] [facility] [place] [address] PCP - General Family Medicine 09/26/23 Court Assistant Relationship Specialty Start Date End Date Jennifer Hernandez DO [address] [place] [address] PCP - General Family Medicine 09/26/23 Court Assistant Relationship Specialty Start Date End Date Mary Jennifer Kang DO [address] [place] [address] PCP - General Family Medicine 09/26/23 Court Assistant Relationship Specialty Start Date End Date Jennifer Hernandez DO [address] [place] [address] PCP - General Family Medicine 09/26/23 Court Assistant Relationship Specialty Start Date End Date Jennifer Hernandez DO [address] [place] [address] PCP - General Family Medicine 09/26/23 Court Assistant Relationship Specialty Start Date End Date Jennifer Hernandez DO [address] [place] [address] PCP - General Family Medicine 09/26/23 Court Assistant Relationship Specialty Start Date End Date Jennifer Hernandez DO [address] [place] [address] PCP - General Family Medicine 09/26/23 Court Assistant Relationship Specialty Start Date End Date Jennifer Hernandez DO [address] [place] [address] PCP - General Family Medicine 09/26/23 Court Assistant Relationship Specialty Start Date End Date Jennifer Hernandez DO [address] [place] [address] PCP - General Family Medicine 09/26/23 Court Assistant Relationship Specialty Start Date End Date Jennifer Hernandez DO [address] [place] [address] PCP - General Family Medicine 09/26/23 Court Assistant Relationship Specialty Start Date End Date Jennifer Hernandez DO [address] [place] [address] PCP - General Family Medicine 09/26/23 Court Assistant Relationship Specialty Start Date End Date Jennifer Hernandez DO [address] [place] [address] PCP - General Family Medicine 09/26/23 Team Status: Active Member Role Status Dates Zebulun Beam VSC, ICU SPECIALIST-C Primary Care Provider Active Team Status: Inactive Member Role Status Dates Dr. Terry Phillip DO Attending Provider Active Start : November 03, 2024 End: November 03, 2024 Dr. Terry Phillip DO Emergency Provider Active Start : November 03, 2024 End: November 03, 2024 Zebulun Beam VSC, ICU SPECIALIST-C Primary Care Provider Active Start: November 03, 2024 End: November 03, 2024 Team Status: Inactive Member Role Status Dates Zebulun Beam VSC, ICU SPECIALIST-C Primary Care Provider Active Start: November 05, 2024 End: November 05, 2024 Zebulun Beam VSC, ICU SPECIALIST-C Attending Provider Active Start: November 05, 2024 End: November 05, 2024 Team Status: Inactive Member Role Status Dates Zebulun Beam VSC, ICU SPECIALIST-C Primary Care Provider Active Start: November 13, 2024 End: November 13, 2024 Dr. Kelvin Nichols MD Attending Provider Active S tart: November 13, 2024 End: November 13, 2024 Dr. Kelvin Nichols MD Referring Provider Active S tart: November 13, 2024 End: November 13, 2024 Dr. Kelvin Nichols MD Emergency Provider Active S tart: November 13, 2024 End: November 13, 2024 Team Status: Active Member Role Status Dates Zebukia Beam VSC, ICU SPECIALIST-C Primary Care Provider Active Start: December 02, 2024 Dr. Marcial Ospina MD Attending Provider Active Start: December 02, 2024 Dr. Marcial Ospina MD Referring Provider Active Start: December 02, 2024 Team Status: Inactive Member Role Status Dates Zebulubrendon Beam VSC, ICU SPECIALIST-C Primary Care Provider Active Start: December 22, 2024 End: December 22, 2024 Dr. Marcial Ospina MD Attending Provider Active Start: December 22, 2024 End: December 22, 2024 Dr. Marcial Ospina MD Referring Provider Active Start: December 22, 2024 End: December 22, 2024 Team Status: Inactive Member Role Status Dates Zebukia Beam VSC, ICU SPECIALIST-C Primary Care Provider Active Start: December 02, 2024 End: December 02, 2024 Dr. Marcial Ospina MD Attending Provider Active Start: December 02, 2024 End: December 02, 2024 Dr. Marcial Ospina MD Referring Provider Active Start: December 02, 2024 End: December 02, 2024 Court Assistant Relationship Specialty Start Date End Date Jennifer Hernandez DO [address] [place] [id number] PCP - General Family Medicine 09/26/23 Court Assistant Relationship Specialty Start Date End Date Jennifer Hernandez DO [address] [place] [id number] PCP - General Family Medicine 09/26/23 Source Comments (unrecognize d section and content) In the event this informatio n is protected by the Federal Confidentiality of Alcohol and Drug Abuse Patient Records regulations: The Federal rules restrict any use of the information to criminally investigate or prosecute any alcohol or drug abuse patient.[facility] HospitalIn the event this information is protected by the Federal Confidentiality of Alcohol and Drug Abuse Patient Records regulations: The Federal rules restrict any use of the information to criminally investigate or prosecute any alcohol or drug abuse patient.[facility] HospitalIn the event this information is protected by the Federal Confidentiality of Alcohol and Drug Abuse Patient Records regulations: The Federal rules restrict any use of the information to criminally investigate or prosecute any alcohol or drug abuse patient.[facility] HospitalIn the event this information is protected by the Federal Confidentiality of Alcohol and Drug Abuse Patient Records regulations: The Federal rules restrict any use of the information to criminally investigate or prosecute any alcohol or drug abuse patient.[facility] HospitalIn the event this information is protected by the Federal Confidentiality of Alcohol and Drug Abuse Patient Records regulations: The Federal rules restrict any use of the information to criminally investigate or prosecute any alcohol or drug abuse patient.[facility] HospitalIn the event this information is protected by the Federal Confidentiality of Alcohol and Drug Abuse Patient Records regulations: The Federal rules restrict any use of the information to criminally investigate or prosecute any alcohol or drug abuse patient.[facility] HospitalIn the event this information is protected by the Federal Confidentiality of Alcohol and Drug Abuse Patient Records regulations: The Federal rules restrict any use of the information to criminally investigate or prosecute any alcohol or drug abuse patient.[facility] HospitalIn the event this information is protected by the Federal Confidentiality of Alcohol and Drug Abuse Patient Records regulations: The Federal rules restrict any use of the information to criminally investigate or prosecute any alcohol or drug abuse patient.[facility] HospitalIn the event this information is protected by the Federal Confidentiality of Alcohol and Drug Abuse Patient Records regulations: The Federal rules restrict any use of the information to criminally investigate or prosecute any alcohol or drug abuse patient.[facility] HospitalIn the event this information is protected by the Federal Confidentiality of Alcohol and Drug Abuse Patient Records regulations: The Federal rules restrict any use of the information to criminally investigate or prosecute any alcohol or drug abuse patient.[facility] HospitalIn the event this information is protected by the Federal Confidentiality of Alcohol and Drug Abuse Patient Records regulations: The Federal rules restrict any use of the information to criminally investigate or prosecute any alcohol or drug abuse patient.[facility] HospitalIn the event this information is protected by the Federal Confidentiality of Alcohol and Drug Abuse Patient Records regulations: The Federal rules restrict any use of the information to criminally investigate or prosecute any alcohol or drug abuse patient.[facility] HospitalIn the event this information is protected by the Federal Confidentiality of Alcohol and Drug Abuse Patient Records regulations: The Federal rules restrict any use of the information to criminally investigate or prosecute any alcohol or drug abuse patient.[facility] HospitalIn the event this information is protected by the Federal Confidentiality of Alcohol and Drug Abuse Patient Records regulations: The Federal rules restrict any use of the information to criminally investigate or prosecute any alcohol or drug abuse patient.[facility] HospitalIn the event this information is protected by the Federal Confidentiality of Alcohol and Drug Abuse Patient Records regulations: The Federal rules restrict any use of the information to criminally investigate or prosecute any alcohol or drug abuse patient.[facility] HospitalIn the event this information is protected by the Federal Confidentiality of Alcohol and Drug Abuse Patient Records regulations: The Federal rules restrict any use of the information to criminally investigate or prosecute any alcohol or drug abuse patient.[facility] HospitalIn the event this information is protected by the Federal Confidentiality of Alcohol and Drug Abuse Patient Records regulations: The Federal rules restrict any use of the information to criminally investigate or prosecute any alcohol or drug abuse patient.[facility] HospitalIn the event this information is protected by the Federal Confidentiality of Alcohol and Drug Abuse Patient Records regulations: The Federal rules restrict any use of the information to criminally investigate or prosecute any alcohol or drug abuse patient.[facility] HospitalIn the event this information is protected by the Federal Confidentiality of Alcohol and Drug Abuse Patient Records regulations: The Federal rules restrict any use of the information to criminally investigate or prosecute any alcohol or drug abuse patient.[facility] HospitalIn the event this information is protected by the Federal Confidentiality of Alcohol and Drug Abuse Patient Records regulations: The Federal rules restrict any use of the information to criminally investigate or prosecute any alcohol or drug abuse patient.[facility] HospitalIn the event this information is protected by the Federal Confidentiality of Alcohol and Drug Abuse Patient Records regulations: The Federal rules restrict any use of the information to criminally investigate or prosecute any alcohol or drug abuse patient.[facility] HospitalIn the event this information is protected by the Federal Confidentiality of Alcohol and Drug Abuse Patient Records regulations: The Federal rules restrict any use of the information to criminally investigate or prosecute any alcohol or drug abuse patient.[facility] HospitalIn the event this information is protected by the Federal Confidentiality of Alcohol and Drug Abuse Patient Records regulations: The Federal rules restrict any use of the information to criminally investigate or prosecute any alcohol or drug abuse patient.[facility] HospitalIn the event this information is protected by the Federal Confidentiality of Alcohol and Drug Abuse Patient Records regulations: The Federal rules restrict any use of the information to criminally investigate or prosecute any alcohol or drug abuse patient.[facility] HospitalIn the event this information is protected by the Federal Confidentiality of Alcohol and Drug Abuse Patient Records regulations: The Federal rules restrict any use of the information to criminally investigate or prosecute any alcohol or drug abuse patient.[facility] HospitalIn the event this information is protected by the Federal Confidentiality of Alcohol and Drug Abuse Patient Records regulations: The Federal rules restrict any use of the information to criminally investigate or prosecute any alcohol or drug abuse patient.[facility] HospitalIn the event this information is protected by the Federal Confidentiality of Alcohol and Drug Abuse Patient Records regulations: The Federal rules restrict any use of the information to criminally investigate or prosecute any alcohol or drug abuse patient.[facility] HospitalIn the event this information is protected by the Federal Confidentiality of Alcohol and Drug Abuse Patient Records regulations: The Federal rules restrict any use of the information to criminally investigate or prosecute any alcohol or drug abuse patient.[facility] HospitalIn the event this information is protected by the Federal Confidentiality of Alcohol and Drug Abuse Patient Records regulations: The Federal rules restrict any use of the information to criminally investigate or prosecute any alcohol or drug abuse patient.[facility] HospitalIn the event this information is protected by the Federal Confidentiality of Alcohol and Drug Abuse Patient Records regulations: The Federal rules restrict any use of the information to criminally investigate or prosecute any alcohol or drug abuse patient.[facility] HospitalIn the event this information is protected by the Federal Confidentiality of Alcohol and Drug Abuse Patient Records regulations: The Federal rules restrict any use of the information to criminally investigate or prosecute any alcohol or drug abuse patient.[facility] HospitalIn the event this information is protected by the Federal Confidentiality of Alcohol and Drug Abuse Patient Records regulations: The Federal rules restrict any use of the information to criminally investigate or prosecute any alcohol or drug abuse patient.[facility] HospitalIn the event this information is protected by the Federal Confidentiality of Alcohol and Drug Abuse Patient Records regulations: The Federal rules restrict any use of the information to criminally investigate or prosecute any alcohol or drug abuse patient.[facility] HospitalIn the event this information is protected by the Federal Confidentiality of Alcohol and Drug Abuse Patient Records regulations: The Federal rules restrict any use of the information to criminally investigate or prosecute any alcohol or drug abuse patient.[facility] HospitalIn the event this information is protected by the Federal Confidentiality of Alcohol and Drug Abuse Patient Records regulations: The Federal rules restrict any use of the information to criminally investigate or prosecute any alcohol or drug abuse patient.[facility] HospitalIn the event this information is protected by the Federal Confidentiality of Alcohol and Drug Abuse Patient Records regulations: The Federal rules restrict any use of the information to criminally investigate or prosecute any alcohol or drug abuse patient.[facility] HospitalIn the event this information is protected by the Federal Confidentiality of Alcohol and Drug Abuse Patient Records regulations: The Federal rules restrict any use of the information to criminally investigate or prosecute any alcohol or drug abuse patient.[facility] HospitalIn the event this information is protected by the Federal Confidentiality of Alcohol and Drug Abuse Patient Records regulations: The Federal rules restrict any use of the information to criminally investigate or prosecute any alcohol or drug abuse patient.[facility] HospitalIn the event this information is protected by the Federal Confidentiality of Alcohol and Drug Abuse Patient Records regulations: The Federal rules restrict any use of the information to criminally investigate or prosecute any alcohol or drug abuse patient.[facility] HospitalIn the event this information is protected by the Federal Confidentiality of Alcohol and Drug Abuse Patient Records regulations: The Federal rules restrict any use of the information to criminally investigate or prosecute any alcohol or drug abuse patient.[facility] HospitalIn the event this information is protected by the Federal Confidentiality of Alcohol and Drug Abuse Patient Records regulations: The Federal rules restrict any use of the information to criminally investigate or prosecute any alcohol or drug abuse patient.[facility] HospitalIn the event this information is protected by the Federal Confidentiality of Alcohol and Drug Abuse Patient Records regulations: The Federal rules restrict any use of the information to criminally investigate or prosecute any alcohol or drug abuse patient.[facility] Goals (unrecognized section and content) Goals may be documented in a n alternate sectionGoals may be documented in an alternate section FOR RECORDS PERTAINING TO PATIENTS WHO ARE OR HAVE BEEN ENROLLED IN A CHEMICAL DEPENDENCY/SUBSTANCEABUSE PROGRAM, SOME INFORMATION MAY BE OMITTED. This clinical summary was aggregated from multiple sources. Caution should be exercised in using it in the provision of clinical care. This summary normalizes information from multiple sources, and as a consequence, information in this document may materially change the coding, format and clinical context of patient data. In addition, data may be omitted in some cases. CLINICAL DECISIONS SHOULD BE BASED ON THE PRIMARY CLINICAL RECORDS. [facility]. provides no warranty or guarantee of the accuracy or completeness of information in this document.
[2025-06-05 04:54] LABS: Anion Gap 29 (5-15); BUN 15 mg/dL (4-19); BUN/Creat Ratio 17.4 RATIO (10-20); Calcium,Total 9.2 mg/dL (7.6-11.0); Carbon Dioxide 16.6 mmol/L (21.0-32.0); Chloride 93 mmol/L (98-108); Estimated Creatinine Clearance 60.50 ml/min (50-250); Glucose 103 mg/dL (70-99); Potassium 3.1 mmol/L (3.3-5.1)
--- NOTE | 2025-06-05 05:00 | RAD_ITS ---
PROCEDURE: RIBS UNI MIN 3V W/PA CHEST 06/05/2025 REASON FOR EXAM: PAIN TECHNIQUE: RIBS UNI MIN 3V W/PA CHEST COMPARISON: No FINDINGS: Normal heart size. Well inflated lungs. In the right suprahilar region, there is an apparent 1.6 cm noncalcified lung nodule, oblique views strongly suggest that this represents a confluence of shadows and not a true lesion.. Chronic right-sided rotator cuff tear, distal right clavicle erosion/resection. No rib fracture. RAD/Ribs Uni Min 3V w/PA Chest IMPRESSION: No acute right-sided chest wall injury. Reading Location: [place] [id number]
--- NOTE | 2025-06-05 05:00 | RAD_ITS ---
PROCEDURE: THORACIC SPINE 3 VIEWS 06/05/2025 REASON FOR EXAM: PAIN TECHNIQUE: THORACIC SPINE 3 VIEWS COMPARISON: No FINDINGS: Mild S shaped scoliosis. Multilevel disc space narrowing and osteophyte formation. No acute bone, soft tissue, or lung pathology. RAD/Thoracic Spine 3 Views IMPRESSION: Thoracic spine scoliosis and degeneration. Reading Location: [place] [address]
--- NOTE | 2025-06-05 05:00 | RAD_ITS ---
PROCEDURE: LUMBAR SPINE 2 OR 3 VIEWS 06/05/2025 REASON FOR EXAM: PAIN TECHNIQUE: LUMBAR SPINE 2 OR 3 VIEWS COMPARISON: 11/03/2024 FINDINGS: Mild S shaped scoliosis. Severe facet arthritis, L4 through S1. Severe L5-S1 disc space narrowing, endplate sclerosis, grade 1 anterolisthesis. No acute bone or soft tissue pathology. RAD/Lumbar Spine 2 or 3 Views IMPRESSION: Lumbar spine scoliosis and degeneration. [facility]
[2025-06-05 05:47] VITALS: BP 138/74; PULSE 81; RESP 16; TEMP 36.6; O2SAT 97
== END 2025-06-05 07:04 | disposition home or self-care (01) ==
PROVIDERS: Emergency Provider Emergency Medicine; PCP Family Medicine; Visit Provider Emergency Medicine
DX: S00.03XA Contusion of scalp, initial encounter (principal); S09.90XA Unspecified injury of head, initial encounter; Y04.8XXA Assault by other bodily force, initial encounter; F32.A Depression, unspecified; F17.210 Nicotine dependence, cigarettes, uncomplicated; Z79.899 Other long term (current) drug therapy
CPT/HCPCS: 70450; 70486; 70498; 71101; 72072; 72100; 72125; 80048; 85025; 96360; 96361; 99285; Q9967; A4216